=== PATIENT | male | born 1955 ===

== ENCOUNTER 2020-07-16 15:50 | Inpatient (IN) | payer OTHER ==
--- NOTE | 2020-07-16 16:17 | Event Note ---
ED Screening Note Date of service: 07/16/20 Time: 16:16 ED Screening Note: Six 4-year-old male presents emerged department chief complaint of gout to his left foot. Patient has a large ulcer versus gouty tophi to the medial portion of the MTP joint. Erythema with discoloration of the great toe noted. Decreased DP and PT pulses. This initial assessment/diagnostic orders/clinical plan/treatment(s) is/are subject to change based on patients health status, clinical progression and re-assessment by fellow clinical providers in the ED. Further treatment and workup at subsequent clinical providers discretion. Patient/guardian urged not to elope from the ED as their condition may be serious if not clinically assessed and managed. Initial orders include: CBC, CMP, PT, PTT, x-ray
--- NOTE | 2020-07-16 17:04 | XRay Report ---
LEFT FOOT 3 VIEWS INDICATION / CLINICAL INFORMATION: Left foot pain, swelling and erythema. Left foot ulcer/necrosis. COMPARISON: None available. FINDINGS: BONES and JOINT(S): No acute fracture or subluxation. No significant arthritis. No suspicious cortica l destruction. SOFT TISSUES: A wound is seen medially along the foot at the level of the head/neck of the first meta tarsal measuring 2.8 cm with adjacent edema. There is severe generalized atherosclerosis. No other si gnificant abnormality. ADDITIONAL FINDINGS: None. IMPRESSION: Left foot wound as above without radiographic evidence of osteomyelitis. Signer Name: Paxton Morton MD Signed: 07/16/2020 4:59 PM Workstation Name: [id number]
[2020-07-16 17:30] LABS: Basophils # (Auto) 0.1 K/mm3 (0.0-0.1); Basophils % (Auto) 0.4 % (0.0-1.8); Eosinophils % (Auto) 0.3 % (0.0-4.3); Hematocrit 41.4 % (35.5-45.6); Hemoglobin 13.6 gm/dl (11.8-15.2); Lymphocytes # (Auto) 1.2 K/mm3 (1.2-5.4); Lymphocytes % (Auto) 8.1 % (13.4-35.0); Mean Corpuscular HGB Conc 33 % (32-34); Mean Corpuscular Volume 96 fl (84-94); Monocytes # (Auto) 0.7 K/mm3 (0.0-0.8); Monocytes % (Auto) 5.1 % (0.0-7.3); Platelet Count 469 K/mm3 (140-440); Red Blood Count 4.32 M/mm3 (3.65-5.03); Red Cell Distribution Width 13.6 % (13.2-15.2)
[2020-07-16 18:04] LABS: Alanine Aminotransferase 25 units/L (7-56); Albumin 4.1 g/dL (3.9-5); Blood Urea Nitrogen 11 mg/dL (9-20); Calcium 9.7 mg/dL (8.4-10.2); Hemolysis Index 9
[2020-07-16 18:05] LABS: INR 0.98 (0.87-1.13)
[2020-07-16 18:06] LABS: Partial Thromboplastin Time 36.7 Sec. (24.2-36.6)
[2020-07-16 18:07] LABS: BUN/Creatinine Ratio 16
--- NOTE | 2020-07-16 18:24 | Vascular Lab Report ---
DUPLEX DOPPLER LOWER EXTREMITY ARTERIAL, LEFT INDICATION / CLINICAL INFORMATION: pain ulcer and discoloration to toes. TECHNIQUE: Arterial duplex examination of the left lower extremity performed using B-mode, color flow and spectr al Doppler assessment. FINDINGS: LEFT: Common Femoral Artery: PSV 165 cm/sec. Triphasic waveform. Proximal SFA: PSV 104 cm/sec. Biphasic waveform. Mid SFA: PSV 154 cm/sec. Biphasic waveform. Distal SFA: PSV 71 cm/sec. Monophasic waveform. Popliteal artery: PSV 106 cm/sec. Monophasic waveform. Posterior tibial artery: PSV 38 cm/sec. Monophasic waveform. Dorsalis Pedis Artery: PSV 13 cm/sec. Monophasic waveform. Anterior tibial artery 19 cm/s, monophasic waveform. IMPRESSION: 1. Moderate scattered peripheral artery disease with diffusely dampened waveforms. There is suspected high-grade stenosis at the mid to distal SFA. 2. Minimal monophasic flow in the dorsalis pedis and anterior tibial artery, both of which are patent . The posterior tibial artery is also patent. Signer Name: Ghanshyam Jeronimo MD Signed: 07/16/2020 6:20 PM Workstation Name: [id number]
[2020-07-16] MEDS ORDERED: ONDANSETRON 4 MG/2 ML INJ IV ONE (22:56)
[2020-07-16] MEDS ORDERED: MORPHINE 2 MG/1 ML INJ IV ONE (22:56)
--- NOTE | 2020-07-16 23:07 | Emergency Department Report ---
ED Extremity Problem HPI - General Chief complaint: Extremity Problem,Nontraumatic Stated complaint: LT FOOT GOUT Time Seen by Provider: 07/16/20 22:49 Source: patient Mode of arrival: Wheelchair Limitations: No Limitations - History of Present Illness Initial comments: 64-year-old male with history of hypertension, CAD, presents to ED with pain to the left foot. Patient has a black necrotic area overlying left first MTP joint with purple discoloration of the left great toe. Patient states these findings have been present for the last 4 months. Patient states pain has been getting worse so he went to an urgent care 3 days ago. Patient was given prescription for Tylenol 3 and azithromycin for cellulitis. Patient states the medication is not helping, so he decided to come to the emergency room. I spoke with patient's daughter, Shannon Glasgow, who confirms patient's story. She [facility] MD Complaint: extremity pain -: month(s) (4) Location: left, other (Foot) History of Same: Yes Severity scale (0 -10): 10 Quality: aching Consistency: constant Improves with: nothing Worsens with: weight bearing, walking, palpation Associated Symptoms: denies: fever - Related Data Home Medications Medication Instructions Recorded Confirmed Last Taken Acetaminophen [Tylenol] 325 mg PO 07/17/20 Unknown Acetaminophen/Codeine [Tylenol 1 tab PO Q4HR PRN 07/17/20 07/17/20 Unknown /Codeine # 3 tab] AtorvaSTATin [Lipitor] 40 mg PO QHS 07/17/20 07/17/20 Unknown Azithromycin [Zithromax Z-JENNA] 0 mg PO DAILY 07/17/20 07/17/20 Unknown Clopidogrel [Plavix] 75 mg PO QDAY 07/17/20 07/17/20 Unknown Folic Acid [Folvite] 1 mg PO QDAY 07/17/20 07/17/20 Unknown Furosemide [Lasix TAB] 80 mg PO 07/17/20 Unknown Metoprolol [Lopressor TAB] 50 mg PO BID 07/17/20 07/17/20 Unknown Spironolactone [Aldactone] 25 mg PO QDAY 07/17/20 07/17/20 Unknown Thiamine [Vitamin B-1] 100 mg PO QDAY 07/17/20 07/17/20 Unknown guaiFENesin [Guaifenesin] 400 mg PO 07/17/20 Unknown lisinopriL [Zestril] 20 mg PO QDAY 07/17/20 07/17/20 Unknown Allergies Allergy/AdvReac Type Severity Reaction Status Date / Time Penicillins Allergy Hives Verified 07/16/20 22:49 ED Review of Systems ROS: Stated complaint: LT FOOT GOUT Other details as noted in HPI Comment: All other systems reviewed and negative Constitutional: denies: fever Musculoskeletal: as per HPI ED Past Medical Hx - Past Medical History Hx Hypertension: Yes Additional medical history: High Cholesterol - Surgical History Additional Surgical History: Tonsilectomy, cyst removed from right chest; Open heart - Social History Smoking Status: Never Smoker Substance Use Type: Alcohol, Marijuana - Medications Home Medications: Home Medications Medication Instructions Recorded Confirmed Last Taken Type Acetaminophen [Tylenol] 325 mg PO 07/17/20 Unknown History Acetaminophen/Codeine [Tylenol 1 tab PO Q4HR PRN 07/17/20 07/17/20 Unknown History /Codeine # 3 tab] AtorvaSTATin [Lipitor] 40 mg PO QHS 07/17/20 07/17/20 Unknown History Azithromycin [Zithromax Z-JENNA] 0 mg PO DAILY 07/17/20 07/17/20 Unknown History Clopidogrel [Plavix] 75 mg PO QDAY 07/17/20 07/17/20 Unknown History Folic Acid [Folvite] 1 mg PO QDAY 07/17/20 07/17/20 Unknown History Furosemide [Lasix TAB] 80 mg PO 07/17/20 Unknown History Metoprolol [Lopressor TAB] 50 mg PO BID 07/17/20 07/17/20 Unknown History Spironolactone [Aldactone] 25 mg PO QDAY 07/17/20 07/17/20 Unknown History Thiamine [Vitamin B-1] 100 mg PO QDAY 07/17/20 07/17/20 Unknown History guaiFENesin [Guaifenesin] 400 mg PO 07/17/20 Unknown History lisinopriL [Zestril] 20 mg PO QDAY 07/17/20 07/17/20 Unknown History ED Physical Exam - General Limitations: No Limitations General appearance: alert, in no apparent distress - Head Head exam: Present: atraumatic, normocephalic - Eye Eye exam: Present: normal appearance, EOMI - ENT ENT exam: Present: mucous membranes moist - Neck Neck exam: Present: normal inspection - Respiratory Respiratory exam: Present: normal lung sounds bilaterally. Absent: respiratory distress - Cardiovascular Cardiovascular Exam: Present: regular rate, normal rhythm - Extremities Exam Extremities exam: Present: other (dry gangrene of area located over medial left 1st MTP joint; purple discoloration of the left great toe, w/ slow cap refill; erythema over dorsum of left foot; tenderness present; no palpable left dorsalis pedis pulse) ED Course Vital Signs 07/16/20 07/16/20 07/16/20 16:18 22:44 22:49 Temperature 97.4 F L Pulse Rate 82 87 Respiratory 18 16 16 Rate Blood Pressure Blood Pressure 232/102 233/105 [Right] O2 Sat by Pulse 98 99 Oximetry 07/16/20 07/17/20 07/17/20 23:30 00:00 00:24 Temperature Pulse Rate 84 88 88 Respiratory 16 16 Rate Blood Pressure 213/92 Blood Pressure 222/109 207/102 [Right] O2 Sat by Pulse 97 97 Oximetry - Consultations Consultation #1: 07/16/20 23:[address] Olsen, vascular surgeon on-call. States will consult on patient. ED Medical Decision Making - Lab Data Result diagrams: 07/16/20 17:06 07/16/20 17:06 - Radiology Data Radiology results: report reviewed, image reviewed - Medical Decision Making 64-year-old male presents to ED with dry gangrene of the left foot and apparent overlying cellulitis. Patient has WBCs of 14. He is afebrile. Patient reports dry gangrene and purple discoloration of the left great toe about ongoing x4 months. Reports he recently moved to [place] from [place] and [facility], however [facility] is not until the end of July. Unable to palpate a DP pulse on the left foot, however vascular ultrasound shows peripheral arterial disease with patent DP and posterior and anterior tibial arteries. I spoke with Dr. Olsen, vascular surgeon, who feels patient should be admitted for further evaluation. Clindamycin has been given for cellulitis. Patient will be admitted to hospitalist for further management. - Differential Diagnosis Dry gangrene, cellulitis, osteomyelitis, PAD Critical care attestation.: If time is entered above; I have spent that time in minutes in the direct care of this critically ill patient, excluding procedure time. ED Disposition Clinical Impression: Peripheral vascular disease of lower extremity, Cellulitis of foot, left, Dry gangrene, Hypokalemia, Uncontrolled hypertension Disposition: DC-[id number] OP ADMIT IP TO THIS HOSP Is pt being admited?: Yes Condition: Stable Time of Disposition: 23:46
[2020-07-16] MEDS ORDERED: POTASSIUM CHLORIDE ER 20 MEQ TAB PO ONE (23:27)
[2020-07-17] MEDS ORDERED: ONDANSETRON 4 MG/2 ML INJ IV PRN (00:20)
[2020-07-17] MEDS ORDERED: MAGNESIUM HYDROXIDE (MOM) ORAL LIQD UDC PO PRN (00:20)
--- NOTE | 2020-07-17 00:38 | History and Physical Report ---
History of Present Illness Date of examination: 07/17/20 Date of admission: 07/17/2020 Chief complaint: Pain in left foot History of present illness: 64-year-old white male with known history of hypertension, coronary artery disease with CABG in the past presenting to the emergency room with discoloration and pain in the left great toe. Patient states this has been ongoing for the past 4 months however pain has been getting worse over the past few days. She had gone to an urgent care facility where he was prescribed Tylenol 3 and azithromycin for possible cellulitis of the left foot. Indicates his condition has not improved and therefore decided to report to the emergency room. Patient has an upcoming appointment with the [facility] sometime next month. He denies any fever or chills, no chest pain or shortness of breath, no nausea vomiting and no diarrhea. Work-up in the emergency room today reveals leukocytosis of 14 Foot x-ray reveals:Left foot wound without radiographic evidence of osteomyelitis. Ultrasound of the left lower extremity reveals: Moderate scattered peripheral artery disease with diffusely dampened waveforms. There is suspected high-grade stenosis at the mid to distal SFA. 2. Minimal monophasic flow in the dorsalis pedis and anterior tibial artery, both of which are patent. The posterior tibial artery is also patent Vascular surgeon Dr. Olsen was consulted and notified of the above findings by the ER physician. Recommendation is to commence patient on empiric IV antibiotics and patient be promptly evaluated and followed up. Past History Past Medical History: hypertension, hyperlipidemia, other (Left foot Gout) Past Surgical History: Other (open heartr surgery,Cyst removal on right side of chest,) Social history: alcohol abuse, other (Uses marijuana) Medications and Allergies Allergies Allergy/AdvReac Type Severity Reaction Status Date / Time Penicillins Allergy Hives Verified 07/16/20 22:49 Home Medications Medication Instructions Recorded Confirmed Last Taken Type Acetaminophen [Tylenol] 325 mg PO Q6HR 07/17/20 07/17/20 Unknown History Acetaminophen/Codeine [Tylenol 1 tab PO Q4HR PRN 07/17/20 07/17/20 Unknown History /Codeine # 3 tab] AtorvaSTATin [Lipitor] 40 mg PO QHS 07/17/20 07/17/20 Unknown History Azithromycin [Zithromax Z-JENNA] 0 mg PO DAILY 07/17/20 07/17/20 Unknown History Clopidogrel [Plavix] 75 mg PO QDAY 07/17/20 07/17/20 Unknown History Folic Acid [Folvite] 1 mg PO QDAY 07/17/20 07/17/20 Unknown History Furosemide [Lasix TAB] 80 mg PO BID 07/17/20 07/17/20 Unknown History Metoprolol [Lopressor TAB] 50 mg PO BID 07/17/20 07/17/20 Unknown History Spironolactone [Aldactone] 25 mg PO QDAY 07/17/20 07/17/20 Unknown History Thiamine [Vitamin B-1] 100 mg PO QDAY 07/17/20 07/17/20 Unknown History guaiFENesin [Guaifenesin] 400 mg PO Q6HR 07/17/20 07/17/20 Unknown History lisinopriL [Zestril] 20 mg PO QDAY 07/17/20 07/17/20 Unknown History Active Meds: Active Medications Acetaminophen (Tylenol) 650 mg PO Q4H PRN PRN Reason: Pain MILD(1-3)/Fever >100.5/REYES Sodium Chloride (Nacl 0.9% 1000 Ml) 1,000 mls @ 75 mls/hr IV DIRECT DELFINO Magnesium Hydroxide (Milk Of Magnesia) 30 ml PO Q4H PRN PRN Reason: Constipation Morphine Sulfate (Morphine) 2 mg IV Q4H PRN PRN Reason: Pain, Moderate (4-6) Ondansetron HCl (Zofran) 4 mg IV Q8H PRN PRN Reason: Nausea And Vomiting Sodium Chloride (Sodium Chloride Flush Syringe 10 Ml) 10 ml IV BID DELFINO Sodium Chloride (Sodium Chloride Flush Syringe 10 Ml) 10 ml IV PRN PRN PRN Reason: LINE FLUSH Review of Systems Constitutional: no fever, no chills Ears, nose, mouth and throat: no nasal congestion, no sore throat Cardiovascular: no chest pain, no palpitations Respiratory: no cough, no shortness of breath Gastrointestinal: no abdominal pain, no nausea, no vomiting, no diarrhea Genitourinary Male: no dysuria, no hematuria, no flank pain Musculoskeletal: no neck pain, no low back pain Integumentary: darkening of skin (On left foot), color changes (Left foot), no rash, no pruritis Neurological: no headaches, no confusion Exam - Constitutional Vitals: Temp Pulse Resp BP Pulse Ox 97.4 F L 88 16 213/92 99 07/16/20 16:18 07/17/20 00:24 07/16/20 22:49 07/17/20 00:24 07/16/20 22:44 General appearance: Present: no acute distress, well-nourished - EENT Eyes: Present: PERRL, EOM intact. Absent: scleral icterus ENT: hearing intact, clear oral mucosa, dentition normal - Neck Neck: Present: supple, normal ROM - Respiratory Respiratory effort: normal Respiratory: bilateral: CTA - Cardiovascular Rhythm: regular Heart Sounds: Present: S1 & S2. Absent: gallop, systolic murmur, diastolic murmur, rub - Extremities Extremities: no ischemia, pulses intact, pulses symmetrical, Full ROM Extremity abnormal: edema (Trace edema on left foot), ulceration (Wound on the medial aspect of the left big toe, appears gangrenous.), pulses diminished (Left foot), tenderness (Redness surrounding ulcer medial aspect of left big toe, redness and tenderness on the dorsum of the left foot) Peripheral Pulses: abnormal (Diminished on left foot) - Abdominal General gastrointestinal: Present: soft, non-tender, non-distended, normal bowel sounds. Absent: mass - Integumentary Integumentary: Present: clear, warm, dry - Musculoskeletal Musculoskeletal: strength equal bilaterally - Psychiatric Psychiatric: appropriate mood/affect, intact judgment & insight, memory intact, cooperative - Neurologic Neurologic: CNII-XII intact, no focal deficits, moves all extremities Results - Labs CBC & Chem 7: 07/16/20 17:06 07/16/20 17:06 Labs: Abnormal lab results 07/16/20 07/16/20 07/16/20 Range/Units 17:06 17:06 17:06 WBC 14.7 H (4.5-11.0) K/mm3 MCV 96 H (84-94) fl Plt Count 469 H (140-440) K/mm3 Lymph % (Auto) 8.1 L (13.4-35.0) % Seg Neutrophils % 86.1 H (40.0-70.0) % Seg Neutrophils # 12.7 H (1.8-7.7) K/mm3 APTT 36.7 H (24.2-36.6) Sec. Potassium 3.4 L (3.6-5.0) mmol/L Creatinine 0.7 L (0.8-1.3) mg/dL Glucose 106 H (75-100) mg/dL Assessment and Plan - Patient Problems (1) Cellulitis of foot, left Current Visit: Yes Status: Acute Plan to address problem: Patient placed on empiric IV antibiotics. (2) Dry gangrene Current Visit: Yes Status: Acute Plan to address problem: We await further evaluation and recommendation by vascular surgery. (3) Hypokalemia Current Visit: Yes Status: Acute Plan to address problem: We will replete potassium and will monitor chemistry. (4) Peripheral vascular disease of lower extremity Current Visit: Yes Status: Acute Plan to address problem: We await further evaluation and recommendation by vascular surgery. (5) DVT prophylaxis Current Visit: Yes Status: Acute (6) Full code status Current Visit: Yes Status: Acute
[2020-07-17] MEDS ORDERED: hydrALAZINE 20 MG/1 ML INJ IV PRN (02:24)
[2020-07-17] MEDS: SODIUM CHLORIDE 0.9% 1000 ML 1,000 ML IV SCH (02:31)
[2020-07-17] MEDS: MORPHINE 2 MG/1 ML INJ IV PRN ×6 (02:31→21:15)
[2020-07-17] MEDS: ACETAMINOPHEN 325 MG TAB PO PRN (08:21)
--- NOTE | 2020-07-17 14:26 | Consultation ---
History of Present Illness - Reason for Consult Consult date: 07/17/20 PVD with Left Lower Extremity Gangrene Requesting physician: JOEY LO - History of Present Illness The patient is a 64-year-old male with a history of coronary artery disease and peripheral vascular disease who states the had an ulcer on his left first toe that developed approximately 4 months ago. He states that he was doing local wound care at home however the wound progressively worsened over the past 4 months. He typically has his medical care handled at the [facility] and was planning to have follow-up for evaluation of his left leg peripheral vascular disease in 1 month however he developed rest pain in the left lower extremity that prevented him from sleeping the past 3 night so he presented to the emergency department. He denies any previous history of endovascular intervention on his lower extremity and denies any history of tobacco abuse. He states that when he walks his hips begin to ache after approximately 1 block however he believes this is due to arthritis. He denies having any calf pain with walking. He has no additional complaints at this time. Past History Past Medical History: CAD, hypertension, hyperlipidemia, PVD, other (Left foot Gout) Past Surgical History: CABG, tonsillectomy, Other (Cyst removal on right side of chest) Social history: alcohol abuse, other (Uses marijuana) Medications and Allergies Allergies Allergy/AdvReac Type Severity Reaction Status Date / Time Penicillins Allergy Hives Verified 07/16/20 22:49 Home Medications Medication Instructions Recorded Confirmed Last Taken Type Acetaminophen [Tylenol] 325 mg PO Q6HR 07/17/20 07/17/20 Unknown History Acetaminophen/Codeine [Tylenol 1 tab PO Q4HR PRN 07/17/20 07/17/20 Unknown History /Codeine # 3 tab] AtorvaSTATin [Lipitor] 40 mg PO QHS 07/17/20 07/17/20 Unknown History Azithromycin [Zithromax Z-JENNA] 0 mg PO DAILY 07/17/20 07/17/20 Unknown History Clopidogrel [Plavix] 75 mg PO QDAY 07/17/20 07/17/20 Unknown History Folic Acid [Folvite] 1 mg PO QDAY 07/17/20 07/17/20 Unknown History Furosemide [Lasix TAB] 80 mg PO BID 07/17/20 07/17/20 Unknown History Metoprolol [Lopressor TAB] 50 mg PO BID 07/17/20 07/17/20 Unknown History Spironolactone [Aldactone] 25 mg PO QDAY 07/17/20 07/17/20 Unknown History Thiamine [Vitamin B-1] 100 mg PO QDAY 07/17/20 07/17/20 Unknown History guaiFENesin [Guaifenesin] 400 mg PO Q6HR 07/17/20 07/17/20 Unknown History lisinopriL [Zestril] 20 mg PO QDAY 07/17/20 07/17/20 Unknown History Active Meds: Active Medications Acetaminophen (Tylenol) 650 mg PO Q4H PRN PRN Reason: Pain MILD(1-3)/Fever >100.5/REYES Last Admin: 07/17/20 08:21 Dose: 650 mg Documented by: Hydralazine HCl (Apresoline) 10 mg IV Q6HR PRN PRN Reason: Blood Pressure Last Admin: 07/17/20 06:10 Dose: 10 mg Documented by: Sodium Chloride (Nacl 0.9% 1000 Ml) 1,000 mls @ 75 mls/hr IV DIRECT DELFINO Last Admin: 07/17/20 02:31 Dose: 75 mls/hr Documented by: Clindamycin HCl (Cleocin 900 Mg/50 Ml) 900 mg in 50 mls @ 100 mls/hr IV Q8HR [facility]; Protocol Last Admin: 07/17/20 14:08 Dose: 100 mls/hr Documented by: Magnesium Hydroxide (Milk Of Magnesia) 30 ml PO Q4H PRN PRN Reason: Constipation Morphine Sulfate (Morphine) 2 mg IV Q4H PRN PRN Reason: Pain, Moderate (4-6) Last Admin: 07/17/20 10:12 Dose: 2 mg Documented by: Ondansetron HCl (Zofran) 4 mg IV Q8H PRN PRN Reason: Nausea And Vomiting Sodium Chloride (Sodium Chloride Flush Syringe 10 Ml) 10 ml IV BID [facility] Last Admin: 07/17/20 10:24 Dose: 10 ml Documented by: Sodium Chloride (Sodium Chloride Flush Syringe 10 Ml) 10 ml IV PRN PRN PRN Reason: LINE FLUSH Review of Systems All systems: negative Exam - Constitutional Vitals: Temp Pulse Resp BP Pulse Ox 98.6 F 84 18 175/87 93 07/17/20 04:45 11/24/20 04:45 07/17/20 04:45 07/17/20 04:45 07/17/20 04:45 General appearance: Present: no acute distress - Cardiovascular Rhythm: regular - Extremities Extremities: pulses intact (2+ right femoral pulse and 2+ radial pulses bilaterally) Extremity abnormal: pulses diminished (Weakly palpable left femoral pulse, nonpalpable pedal pulses bilaterally), other (Eschar overlying left medial first metatarsal and extending onto the dorsum of the foot with surrounding erythema, no purulence identified) - Abdominal General gastrointestinal: Present: soft, non-tender, non-distended Male genitourinary: Present: normal - Rectal Rectal Exam: deferred Results - Labs CBC & Chem 7: 07/16/20 17:06 07/16/20 17:06 Labs: Abnormal lab results 07/16/20 07/16/20 07/16/20 Range/Units 17:06 17:06 17:06 WBC 14.7 H (4.5-11.0) K/mm3 MCV 96 H (84-94) fl Plt Count 469 H (140-440) K/mm3 Lymph % (Auto) 8.1 L (13.4-35.0) % Seg Neutrophils % 86.1 H (40.0-70.0) % Seg Neutrophils # 12.7 H (1.8-7.7) K/mm3 APTT 36.7 H (24.2-36.6) Sec. Potassium 3.4 L (3.6-5.0) mmol/L Creatinine 0.7 L (0.8-1.3) mg/dL Glucose 106 H (75-100) mg/dL - Imaging and Cardiology Venous US: other (Left lower extremity arterial duplex films were reviewed) Assessment and Plan The patient is a 64-year-old male with a history of peripheral vascular disease who presented with left lower extremity critical limb ischemia. He had a ultrasound that demonstrates SFA and popliteal disease and his physical exam would suggest possible iliac disease. He typically has his care performed at the [facility] however given the critical nature of his ischemia the patient cannot wait 1 month to have a diagnostic study with possible intervention. I have discussed his need for a diagnostic aortogram with left lower extremity angiogram and possible intervention. He has been given the risk, benefits, and alternative procedures and expressed understanding and would like to proceed. He will be made n.p.o. after midnight and placed on the schedule for an angiogram tomorrow.
--- NOTE | 2020-07-17 16:10 | Progress Note ---
Subjective Date of service: 07/17/20 Objective - Constitutional Vitals: Vital Signs - 12hr 07/17/20 04:45 Temperature 98.6 F Pulse Rate 84 Respiratory 18 Rate Blood Pressure 175/87 O2 Sat by Pulse 93 Oximetry General appearance: Present: no acute distress, well-nourished - EENT Eyes: PERRL, EOM intact ENT: hearing intact, clear oral mucosa Ears: bilateral: normal - Neck Neck: supple, normal ROM - Respiratory Respiratory effort: normal Respiratory: bilateral: CTA - Breasts Breasts: normal - Cardiovascular Rhythm: regular Heart Sounds: Present: S1 & S2. Absent: gallop, rub Extremities: pulses intact, No edema, normal color, Full ROM - Gastrointestinal General gastrointestinal: Present: soft, non-tender, non-distended, normal bowel sounds - Genitourinary Male genitourinary: normal - Integumentary Integumentary: clear, warm, dry - Musculoskeletal Musculoskeletal: 1, strength equal bilaterally - Neurologic Neurologic: moves all extremities - Psychiatric Psychiatric: memory intact, appropriate mood/affect, intact judgment & insight - Labs CBC & Chem 7: 07/16/20 17:06 07/16/20 17:06 Labs: Abnormal lab results 07/16/20 07/16/20 07/16/20 Range/Units 17:06 17:06 17:06 WBC 14.7 H (4.5-11.0) K/mm3 MCV 96 H (84-94) fl Plt Count 469 H (140-440) K/mm3 Lymph % (Auto) 8.1 L (13.4-35.0) % Seg Neutrophils % 86.1 H (40.0-70.0) % Seg Neutrophils # 12.7 H (1.8-7.7) K/mm3 APTT 36.7 H (24.2-36.6) Sec. Potassium 3.4 L (3.6-5.0) mmol/L Creatinine 0.7 L (0.8-1.3) mg/dL Glucose 106 H (75-100) mg/dL
[2020-07-17] MEDS: carvediloL 12.5 MG TAB PO SCH (21:13)
[2020-07-17] MEDS: VALSARTAN 160MG TAB PO SCH (21:14)
[2020-07-18] MEDS: MORPHINE 2 MG/1 ML INJ IV PRN (01:11)
[2020-07-18 04:59] LABS: Basophils % (Auto) 0.3 % (0.0-1.8); Eosinophils # (Auto) 0.1 K/mm3 (0.0-0.4); Eosinophils % (Auto) 0.5 % (0.0-4.3); Hematocrit 35.8 % (35.5-45.6); Hemoglobin 12.1 gm/dl (11.8-15.2); Lymphocytes # (Auto) 1.5 K/mm3 (1.2-5.4); Lymphocytes % (Auto) 11.8 % (13.4-35.0); Mean Corpuscular HGB Conc 34 % (32-34); Mean Corpuscular Volume 96 fl (84-94); Monocytes % (Auto) 8.1 % (0.0-7.3); Platelet Count 398 K/mm3 (140-440); Red Blood Count 3.73 M/mm3 (3.65-5.03); Red Cell Distribution Width 13.6 % (13.2-15.2)
[2020-07-18 05:14] LABS: Blood Urea Nitrogen 5 mg/dL (9-20); Calcium 8.9 mg/dL (8.4-10.2); Hemolysis Index 9
[2020-07-18 05:15] LABS: BUN/Creatinine Ratio 7
[2020-07-18] MEDS ORDERED: POTASSIUM CHLORIDE ER 20 MEQ TAB PO NR (07:00)
[2020-07-18] MEDS ORDERED: HEPARIN/NS 5000 UNIT/500ML 1,000 ML IR ONE (09:53)
[2020-07-18] MEDS ORDERED: fentaNYL 100 MCG/2 ML INJ ONE ×2 (09:54→11:33)
[2020-07-18] MEDS ORDERED: LIDOCAINE 1%/EPINEPHRINE 1:100,000 VIAL (20 ML) INFILTRATI ONE ×2 (09:54→11:24)
[2020-07-18] MEDS ORDERED: ceFAZolin/Water 2 GM/20 ML 0 GM/0 ML SYRINGE IV ONE (09:54)
[2020-07-18] MEDS ORDERED: SODIUM CHLORIDE 0.9% 500 ML 500 ML IV SCH (10:00)
[2020-07-18] MEDS: MIDAZOLAM 2 MG/2 ML INJ ONE ×4 (10:26→11:36)
[2020-07-18] MEDS: HEPARIN 10,000 UNITS/10 ML VIAL ONE ×4 (10:40→12:29)
[2020-07-18] MEDS: fentaNYL 100 MCG/2 ML INJ ONE ×3 (10:51→11:36)
[2020-07-18] MEDS ORDERED: SODIUM CHLORIDE 0.9% 500 ML 500 ML ONE (11:15)
[2020-07-18] MEDS ORDERED: MIDAZOLAM 2 MG/2 ML INJ ONE (11:32)
[2020-07-18] MEDS ORDERED: HEPARIN/NS 5000 UNIT/500ML 500 ML IR ONE ×2 (11:40→13:37)
[2020-07-18] MEDS ORDERED: NITROGLYCERIN SYRINGE 3 ML ONE (11:46)
[2020-07-18] MEDS ORDERED: VERAPAMIL 5 MG/2 ML INJ ONE ×2 (11:46→12:01)
[2020-07-18] MEDS ORDERED: SODIUM CHLORIDE 0.9% 1000 ML 1,000 ML ONE (12:01)
[2020-07-18] MEDS ORDERED: NITROGLYCERIN DRIP 50 MG/250 ML BOTTLE ONE (12:01)
[2020-07-18] MEDS: carvediloL 12.5 MG TAB PO SCH ×2 (12:09→23:39)
[2020-07-18] MEDS: VALSARTAN 160MG TAB PO SCH ×2 (12:09→23:39)
[2020-07-18] MEDS ORDERED: hydrALAZINE 20 MG/1 ML INJ ONE ×2 (12:11→13:48)
[2020-07-18] MEDS ORDERED: HYDROmorphone 1 MG/1 ML INJ ONE (12:19)
[2020-07-18] MEDS ORDERED: HEPARIN 10,000 UNITS/10 ML VIAL ONE ×2 (13:22→14:39)
[2020-07-18] MEDS ORDERED: WATER FOR INJ Sterile (PF) 10 ML ONE (13:55)
[2020-07-18] MEDS ORDERED: ALTEPLASE 2 MG INJ ONE (13:55)
[2020-07-18] MEDS ORDERED: HEPARIN/ 0.45% NACL DRIP 25,000 UNIT/500 ML BAG ONE (14:01)
[2020-07-18] MEDS ORDERED: CLOPIDOGREL 300 MG TAB ONE (14:06)
[2020-07-18] MEDS ORDERED: ALUM-MAG HYDROXIDE-SIMETHICONE 200-200-20MG/5ML ORAL LIQD 30 ML ONE (14:06)
[2020-07-18] MEDS ORDERED: CLOPIDOGREL 300 MG TAB PO ONE (14:17)
--- NOTE | 2020-07-18 14:23 | Operative Report ---
Operative Report Operative Report: Date of Procedure: 07/18/2020 Pre-operative Diagnosis: Peripheral Vascular Disease with Left Lower Extremity Gangrene Post-operative Diagnosis: Same Procedure(s): 1. Ultrasound-Guided Access Right Common Femoral Artery 2. Diagnostic Aortogram (No Previous Films for Comparison) 3. Diagnostic Left Lower Extremity Arteriogram (No Previous Films for Comparison) 4. Ultrasound-Guided Access Left Posterior Tibial Artery In Retrograde Fashion 5. Atherectomy with Angioplasty And Stent of The Left Posterior Tibial Artery with 1.25 Solid CSI Diamondback Orbital Atherectomy Catheter, 3.0-3.5 x 220 Nanocross Balloon, 3.5 x 30 mm and 3.5 x 30 mm Medtronic Resolute [place] Drug- Eluting Stents 6. Atherectomy with Angioplasty of Left Below-knee Popliteal Artery With 1.25 Solid CSI Diamondback Orbital Atherectomy Catheter, 5.0 x 200 Angiosculpt Balloon, and 5.0 x 150 IN.PACT Drug-Coated Balloon 7. Angioplasty of Left Above Knee Popliteal Artery and SFA 6.0 x 200 Angiosculpt Balloon, 6.0 x 250 IN.PACT Drug-Coated Balloon, and 6.0 x 150 IN.PACT Drug-Coated Balloon 8. Closure of Right Femoral Arteriotomy with Pro-Delta Closure Device 9. Radiologic Supervision with Interpretation 10. Monitored Moderate Sedation (Total Anesthesia Time: 230 Minutes) Surgeon: Moe Holland M.D. Canine Service Instructor Trainer: None Anesthesia: Local/Monitored Moderate Sedation Total Anesthesia Time: 230 Minutes EBL: Minimal Counts: Correct Complications: None Condition: Stable Specimen: None Indication: The patient is a 64-year-old male with a history of peripheral vascular disease who developed a left foot ulcer approximate 4 months ago. Over the past 4 months that ulcer has progressively worsened and the patient eventually presented to the emergency department with complaints of rest pain. His arterial duplex demonstrated SFA and popliteal artery disease and his vascular exam demonstrated no pedal pulses. He is in need of a diagnostic angiogram. He was given the risk, benefits, and alternative procedures and consented to the procedure. Angiographic Findings: The diagnostic aortogram revealed that the aorta was ectatic without aneurysmal dilatation or flow-limiting stenosis. The left lower extremity angiogram revealed that the left common iliac artery was patent without evidence of flow- limiting stenosis. The left hypogastric artery and external iliac artery were both patent without evidence of flow-limiting stenosis. The common femoral artery was patent without evidence of flow-limiting stenosis. The proximal profunda was patent without evidence of flow-limiting stenosis however there was distal disease with diffuse stenosis however this did not appear to be flow- limiting. The SFA was diffusely diseased with 30 to 40% stenosis however this was not significantly flow-limiting. The above-knee popliteal artery was diffusely diseased with 30 to 50% stenosis. There was a short segment stenosis in the below-knee popliteal artery of approximately 85%. The remainder of the below-knee popliteal artery was diffusely diseased with 30 to 50% stenosis. All tibial vessels were occluded at their origin with only collateral vessels noted in the calf and providing flow into the foot. After intervention the SFA and popliteal artery were patent with less than 15% residual stenosis. 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 The posterior tibial artery was patent to the ankle with approximately 40% stenosis in various areas. There were 2 areas that were treated with drug-eluting stents that demonstrated extravasation of contrast however this was significantly decreased after placing the stents. There were collateral vessels were riding outflow from the posterior tibial artery at the level of the medial malleolus and then flowing into the foot without true inline flow to the posterior tibial artery. Description of Procedure: The patient was brought to the Induction Heat Treater and laid in supine position. After a timeout was performed the patient's right groin was prepped and draped in normal sterile fashion. Ultrasound was used to identify the right common femoral artery and confirm patency. Once patency was confirmed the overlying skin and soft tissue was anesthetized with lidocaine. An 11 blade was used to make a small stab incision and a curved hemostat was used to bluntly dissect down to the anterior surface of the right common femoral artery. A 21-gauge micropuncture needle was used with ultrasound guidance to enter the right common femoral artery and after removing the needle a 0.018 micropuncture wire was advanced to the artery. The needle was removed and a micropuncture sheath was advanced into the artery by Seldinger technique. The inner cannula and wire were removed and a 0.035 Bentson wire was advanced to the aorta under fluoroscopy. The micropuncture sheath was exchanged for a 5 Gabonese sheath by Seldinger technique and an Omni Flush catheter was advanced into the aorta. The Bentson wire was removed and a diagnostic aortogram was performed with the previously described findings. The Bentson wire and Omni Flush catheter were advanced up and over the bifurcation and a diagnostic left lower extremity angiogram was performed with the previously described findings. Given the findings and the patient's clinical exam the decision was made to treat. I advanced the Bentson wire into the distal popliteal artery and exchanged the 5 Gabonese sheath for a 7 Gabonese 45 cm destination sheath. At this point the patient was systemically heparinized with 5000 units of heparin IV and this was redosed with 1000 units of heparin every 45 minutes into the completion of the case. I advanced a Navicross catheter and 0.018 V18 wire into the anterior tibial artery which was confirmed by angiogram. I was able to advance the catheter and wire into the mid anterior tibial artery and the true lumen. I attempted to advance the catheter wire into the distal anterior tibial artery however the wire initially entered a collateral branch and then eventually perforated in the distal artery which was confirmed by angiogram. I then attempted to treat the posterior tibial artery in antegrade fashion which I was unable to do so I decided to attempt a pedal approach. The patient's left foot was then prepped and draped in normal sterile fashion. I used the ultrasound to identify the posterior tibial artery just above the medial malleolus. Lidocaine was used to anesthetize the skin and overlying soft tissue. A 21-gauge micropuncture needle was then used to access the artery and retrograde fashion and the V 18 wire was advanced into the artery. A 4/5 glide slender sheath was advanced into the artery by Seldinger technique and a radial cocktail was injected into the artery. I then used the Navicross catheter with the V 18 to cross the occluded posterior tibial artery and reenter into the popliteal artery which was confirmed by angiogram. I then manipulated the wire into the Navicross catheter that was in the popliteal artery in antegrade fashion and advanced the wire out of the right common femoral artery. At this point the patient was "body flossed". I advanced the antegrade catheter over the V 18 and into the distal posterior tibial artery. I then advanced a 0.014 Viper Wire through the Navicross catheter and into the distal posterior tibial artery. I attempted to advance the catheter wire into the lateral plantar artery without success. I used the CSPeeridea Diamondback 1.25 Orbital Atherectomy Catheter to perform atherectomy of the posterior tibial artery and below-knee popliteal artery. I followed that with angioplasty with a 3.0-3.5 x 220 Nanocross Balloon there resulted in less than 10% residual stenosis within the posterior tibial artery. I performed angioplasty of the below-knee popliteal artery using a 5.0 x 200 Angiosculpt Balloon followed by 5.0 x 150 IN.PACT Drug-Coated Balloon resulting in less than 15% residual stenosis. I performed angioplasty of the above-knee popliteal artery and SFA with a 6.0 x 200 Angiosculpt Balloon followed by angioplasty of the above-knee popliteal artery and SFA with a 6.0 x 250 IN.PACT Drug-Coated Balloon and a 6.0 x 150 IN.PACT Drug-Coated Balloon. This resulted in less than 15% residual stenosis however the flow through all t he arteries was significantly sluggish. 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 This appeared to be off of the proximal artery. This was not apparent during my initial time working on the tibial vessels. I was unable to visualize the exact origin of the fistula so I decided not to attempt treatment in hopes that the fistula would eventually thrombosed. Additionally there were 2 areas of extravasation of contrast from the posterior tibial artery as well as recoil of the lesions with 40% stenosis in the mid artery. I advanced a 0.014 Choice PT wire into the posterior tibial artery and then advanced a 6 Gabonese multipurpose catheter into the tibioperoneal trunk. I then treated the distal area of extravasation which also included an area of stenosis of approximately 60% with a 3.5 x 30 mm Medtronic Resolute [place] Drug-Eluting Stent and then treated the more proximal area with a 3.5 x 30 mm Medtronic Resolute [place] drug-eluting stent. After treating the areas there was still extravasation of contrast however this was much more sluggish than initial. The posterior tibial artery was still patent with flow down to the medial malleolus and collateral branches into the calf that appeared to fill the foot. At this point I decided to complete the case and start the patient on a heparin drip in hopes that this may keep the vessels patent with the plan for more intervention later if needed. I removed the Choice PT wire and advanced a milliPay Systemsson wire into the artery. I pulled the sheath back into the right external iliac artery and then advanced the wire into the aorta. I then removed the sheath and used a Pro-glide closure device to close the right femoral arteriotomy. A sterile dressing was then applied to the entry site and the patient was transported to recovery in stable condition.
--- NOTE | 2020-07-18 14:42 | Progress Note ---
Subjective Date of service: 07/18/20 Objective - Constitutional Vitals: Vital Signs - 12hr 07/18/20 09:11 Temperature 98.6 F Pulse Rate 70 Respiratory 18 Rate Blood Pressure 180/136 [Right] O2 Sat by Pulse 97 Oximetry General appearance: Present: no acute distress, well-nourished - EENT Eyes: PERRL, EOM intact ENT: hearing intact, clear oral mucosa Ears: bilateral: normal - Neck Neck: supple, normal ROM - Respiratory Respiratory effort: normal Respiratory: bilateral: CTA - Breasts Breasts: normal - Cardiovascular Rhythm: regular Heart Sounds: Present: S1 & S2. Absent: gallop, rub Extremities: pulses intact, No edema, normal color, Full ROM - Gastrointestinal General gastrointestinal: Present: soft, non-tender, non-distended, normal bowel sounds - Genitourinary Male genitourinary: normal - Integumentary Integumentary: clear, warm, dry - Musculoskeletal Musculoskeletal: 1, strength equal bilaterally - Neurologic Neurologic: moves all extremities - Psychiatric Psychiatric: memory intact, appropriate mood/affect, intact judgment & insight - Labs CBC & Chem 7: 07/18/20 04:14 07/18/20 04:14 Labs: Abnormal lab results 07/18/20 07/18/20 Range/Units 04:14 04:14 WBC 12.8 H (4.5-11.0) K/mm3 MCV 96 H (84-94) fl MCH 33 H (28-32) pg Lymph % (Auto) 11.8 L (13.4-35.0) % [place] % (Auto) 8.1 H (0.0-7.3) % [place] # (Auto) 1.0 H (0.0-0.8) K/mm3 Seg Neutrophils % 79.3 H (40.0-70.0) % Seg Neutrophils # 10.1 H (1.8-7.7) K/mm3 Potassium 3.3 L (3.6-5.0) mmol/L BUN 5 L (9-20) mg/dL Creatinine 0.7 L (0.8-1.3) mg/dL Glucose 122 H (75-100) mg/dL
[2020-07-18] MEDS: HEPARIN/ 0.45% NACL DRIP 25,000 UNIT/500 ML BAG IV SCH (14:44)
[2020-07-18] MEDS ORDERED: HEPARIN 10,000 UNITS/10 ML VIAL IV SCH (15:00)
[2020-07-18] MEDS ORDERED: HEPARIN 10,000 UNITS/10 ML VIAL IV ONE (15:00)
[2020-07-18 15:29] LABS: Hematocrit 36.4 % (35.5-45.6); Hemoglobin 12.1 gm/dl (11.8-15.2)
[2020-07-18 15:40] LABS: INR 1.23 (0.87-1.13)
[2020-07-18 16:38] LABS: Partial Thromboplastin Time TNR Sec. (24.2-36.6)
[2020-07-18] MEDS: HYDROcodone/ACETAMINOPHEN 5-325 MG TAB PO PRN (18:30)
[2020-07-19] MEDS: SODIUM CHLORIDE 0.9% 1000 ML 1,000 ML IV SCH (05:30)
[2020-07-19] MEDS: HEPARIN/ 0.45% NACL DRIP 25,000 UNIT/500 ML BAG IV SCH (05:31)
[2020-07-19] MEDS: ASPIRIN EC 81 MG TAB PO SCH (10:58)
[2020-07-19] MEDS: CLOPIDOGREL 75 MG TAB PO SCH (11:01)
[2020-07-19] MEDS: VALSARTAN 160MG TAB PO SCH ×2 (11:01→22:06)
[2020-07-19] MEDS: carvediloL 12.5 MG TAB PO SCH ×2 (11:01→22:06)
[2020-07-19] MEDS: HYDROcodone/ACETAMINOPHEN 5-325 MG TAB PO PRN ×2 (13:11→23:40)
--- NOTE | 2020-07-19 15:58 | Progress Note ---
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 On heparin drip, on aspirin, on Plavix, on Protonix. I am concerned that the left lower extremity may not be salvageable. Hopefully, patient may be able to only have a TMA, but may need BKA. I will obtain an arterial ultrasound of the lower extremities with YESSY for further evaluation. Patient understands and agrees with plan. Subjective Date of service: 07/19/20 Principal diagnosis: LE CLI Interval history: Patient reports symptomatic improvement of the left lower extremity and reports that he is out of rest pain. He has left-sided nonpalpable and nondopplerable PT and DP. He has nonpalpable right pedal pulses. His left first digit appears ischemic and is cool with eschar at the MTP joint. The second through fifth digits are cool with less ischemia. There is some evidence of deep tissue injury on the dorsum of the midfoot. Discussed with patient that I will obtain an arterial Doppler for further evaluation. Objective - Constitutional Vitals: Vital Signs - 12hr 07/19/20 07/19/20 07/19/20 05:01 07:25 11:01 Temperature 99.0 F Pulse Rate 74 78 Respiratory 18 Rate Blood Pressure 172/78 172/78 133/57 O2 Sat by Pulse 96 Oximetry 07/19/20 12:13 Temperature 99.3 F Pulse Rate 74 Respiratory 17 Rate Blood Pressure 101/62 O2 Sat by Pulse 93 Oximetry General appearance: Present: no acute distress - EENT Eyes: EOM intact ENT: hearing intact - Respiratory Respiratory effort: normal Extremities: abnormal (please see subjective) Extremity abnormal: other (Right groin has no hematoma or pseudoaneurysm or oozing.) - Gastrointestinal General gastrointestinal: Present: soft, non-tender - Psychiatric Psychiatric: appropriate mood/affect, cooperative - Labs CBC & Chem 7: 07/18/20 15:01 07/18/20 04:14 Labs: Abnormal lab results 07/18/20 Range/Units 18:37 Heparin Anti-Xa Level 0.11 L (0.3-0.7) U.I./ml Medications & Allergies - Medications Allergies/Adverse Reactions: Allergies Penicillins Allergy (Verified 07/16/20 22:49) Hives Home Medications: Home Medications Medication Instructions Recorded Confirmed Last Taken Type Acetaminophen [Tylenol] 325 mg PO Q6HR 07/17/20 07/17/20 Unknown History Acetaminophen/Codeine [Tylenol 1 tab PO Q4HR PRN 07/17/20 07/17/20 Unknown History /Codeine # 3 tab] AtorvaSTATin [Lipitor] 40 mg PO QHS 07/17/20 07/17/20 Unknown History Azithromycin [Zithromax Z-JENNA] 0 mg PO DAILY 07/17/20 07/17/20 Unknown History Clopidogrel [Plavix] 75 mg PO QDAY 07/17/20 07/17/20 Unknown History Folic Acid [Folvite] 1 mg PO QDAY 07/17/20 07/17/20 Unknown History Furosemide [Lasix TAB] 80 mg PO BID 07/17/20 07/17/20 Unknown History Metoprolol [Lopressor TAB] 50 mg PO BID 07/17/20 07/17/20 Unknown History Spironolactone [Aldactone] 25 mg PO QDAY 07/17/20 07/17/20 Unknown History Thiamine [Vitamin B-1] 100 mg PO QDAY 07/17/20 07/17/20 Unknown History guaiFENesin [Guaifenesin] 400 mg PO Q6HR 07/17/20 07/17/20 Unknown History lisinopriL [Zestril] 20 mg PO QDAY 07/17/20 07/17/20 Unknown History Active Medications: Generic Name Dose Route Start Last Admin Trade Name Freq PRN Reason Stop Dose Admin Acetaminophen 650 mg 07/17/20 00:20 07/17/20 08:21 Tylenol PO 650 mg Q4H PRN Administration Pain MILD(1-3)/Fever >100.5/REYES Hydrocodone Bitart/Acetaminophen 1 each 07/18/20 14:16 07/19/20 13:11 [place] 5/325 PO 1 each Q4H PRN Administration Pain, Moderate (4-6) Aspirin 81 mg 07/19/20 10:00 07/19/20 10:58 Halfprin Ec PO 81 mg QDAY DELFINO Administration Carvedilol 12.5 mg 07/17/20 22:00 07/19/20 11:01 Coreg PO 12.5 mg BID DELFINO Administration Clopidogrel Bisulfate 75 mg 07/19/20 10:00 07/19/20 11:01 Plavix PO 75 mg QDAY DELFINO Administration Hydralazine HCl 10 mg 07/17/20 02:24 07/17/20 06:10 Apresoline IV 10 mg Q6HR PRN Administration Blood Pressure Sodium Chloride 1,000 mls @ 75 mls/hr 07/17/20 00:30 07/19/20 05:30 Nacl 0.9% 1000 Ml IV 75 mls/hr DIRECT DELFINO Administration Clindamycin HCl 900 mg in 50 mls @ 100 mls/hr 07/17/20 14:00 07/19/20 13:12 Cleocin 900 Mg/50 Ml IV 100 mls/hr Q8HR DELFINO Administration Protocol Heparin Sodium/Sodium Chloride 25,000 unit in 500 mls @ 24 mls/hr 07/18/20 15:00 07/19/20 05:31 Heparin/ 0.45% Nacl-25,000 Unit/500 Ml IV 67,500 units/hr TITR DELFINO 1,350 mls/hr Administration Protocol 1,200 UNITS/HR Labetalol HCl 10 mg 07/17/20 17:20 07/19/20 07:25 Labetalol IV 10 mg Q3H PRN Administration Blood Pressure Magnesium Hydroxide 30 ml 07/17/20 00:20 Milk Of Magnesia PO Q4H PRN Constipation Morphine Sulfate 2 mg 07/17/20 00:20 07/18/20 01:11 Morphine IV 2 mg Q4H PRN Administration Pain, Moderate (4-6) Ondansetron HCl 4 mg 07/17/20 00:20 Zofran IV Q8H PRN Nausea And Vomiting Pantoprazole Sodium 40 mg 07/19/20 16:00 Protonix PO QDAC DELFINO Sodium Chloride 10 ml 07/17/20 10:00 07/19/20 11:02 Sodium Chloride Flush Syringe 10 Ml IV 10 ml BID DELFINO Administration Sodium Chloride 10 ml 07/17/20 00:20 Sodium Chloride Flush Syringe 10 Ml IV PRN PRN LINE FLUSH Valsartan 160 mg 07/17/20 22:00 07/19/20 11:01 Diovan PO 160 mg BID DELFINO Administration
--- NOTE | 2020-07-19 16:15 | Progress Note ---
Subjective Date of service: 07/19/20 Principal diagnosis: LE CLI Objective - Constitutional Vitals: Vital Signs - 12hr 07/19/20 07/19/20 07/19/20 05:01 07:25 11:01 Temperature 99.0 F Pulse Rate 74 78 Respiratory 18 Rate Blood Pressure 172/78 172/78 133/57 O2 Sat by Pulse 96 Oximetry 07/19/20 12:13 Temperature 99.3 F Pulse Rate 74 Respiratory 17 Rate Blood Pressure 101/62 O2 Sat by Pulse 93 Oximetry General appearance: Present: no acute distress, well-nourished - EENT Eyes: PERRL, EOM intact ENT: hearing intact, clear oral mucosa Ears: bilateral: normal - Neck Neck: supple, normal ROM - Respiratory Respiratory effort: normal Respiratory: bilateral: CTA - Breasts Breasts: normal - Cardiovascular Rhythm: regular Heart Sounds: Present: S1 & S2. Absent: gallop, rub Extremities: pulses intact, No edema, normal color, Full ROM - Gastrointestinal General gastrointestinal: Present: soft, non-tender, non-distended, normal bowel sounds - Genitourinary Male genitourinary: normal - Integumentary Integumentary: clear, warm, dry - Musculoskeletal Musculoskeletal: 1, strength equal bilaterally - Neurologic Neurologic: moves all extremities - Psychiatric Psychiatric: memory intact, appropriate mood/affect, intact judgment & insight - Labs CBC & Chem 7: 07/18/20 15:01 07/18/20 04:14 Labs: Abnormal lab results 07/18/20 Range/Units 18:37 Heparin Anti-Xa Level 0.11 L (0.3-0.7) U.I./ml
[2020-07-19] MEDS: PANTOPRAZOLE 40 MG TAB PO SCH (18:31)
[2020-07-19] MEDS: traZODone 50 MG TAB PO SCH (23:40)
[2020-07-20 06:37] LABS: Hematocrit 26.4 % (35.5-45.6); Hemoglobin 8.8 gm/dl (11.8-15.2)
[2020-07-20] MEDS: HEPARIN/ 0.45% NACL DRIP 25,000 UNIT/500 ML BAG IV SCH (07:19)
[2020-07-20] MEDS: PANTOPRAZOLE 40 MG TAB PO SCH (09:31)
[2020-07-20] MEDS: carvediloL 12.5 MG TAB PO SCH ×2 (09:31→23:07)
[2020-07-20] MEDS: ASPIRIN EC 81 MG TAB PO SCH (09:31)
[2020-07-20] MEDS: CLOPIDOGREL 75 MG TAB PO SCH (09:31)
[2020-07-20] MEDS: VALSARTAN 160MG TAB PO SCH ×2 (11:04→23:08)
[2020-07-20 14:15] LABS: Basophils % (Auto) 0.3 % (0.0-1.8); Eosinophils % (Auto) 0.1 % (0.0-4.3); Hemoglobin 9.2 gm/dl (11.8-15.2); Lymphocytes # (Auto) 1.1 K/mm3 (1.2-5.4); Lymphocytes % (Auto) 9.2 % (13.4-35.0); Mean Corpuscular HGB Conc 34 % (32-34); Mean Corpuscular Volume 95 fl (84-94); Monocytes % (Auto) 8.4 % (0.0-7.3); Platelet Count 347 K/mm3 (140-440); Red Blood Count 2.83 M/mm3 (3.65-5.03); Red Cell Distribution Width 13.5 % (13.2-15.2)
--- NOTE | 2020-07-20 14:23 | Event Note ---
Date: 07/20/20 VL arterial ultrasound was not performed. Called US department and they told me that the ultrasound would not be performed until thursday. They did not notify me of this, I had to call to find out. I ordered a CT angiogram of the lower extremities with runoff for further evaluation. BMP and CBC ordered.
[2020-07-20 14:29] LABS: Blood Urea Nitrogen 9 mg/dL (9-20); Calcium 8.4 mg/dL (8.4-10.2); Hemolysis Index 2
[2020-07-20 14:49] LABS: BUN/Creatinine Ratio 13
--- NOTE | 2020-07-20 14:51 | Progress Note ---
Assessment and Plan - Patient Problems (1) Cellulitis of foot, left Current Visit: Yes Status: Acute (2) DVT prophylaxis Current Visit: Yes Status: Acute (3) Peripheral vascular disease of lower extremity Current Visit: Yes Status: Acute Subjective Date of service: 07/20/20 Principal diagnosis: LE CLI Objective - Constitutional Vitals: Vital Signs - 12hr 07/20/20 07/20/20 07/20/20 04:34 09:31 11:04 Temperature 99.2 F Pulse Rate 67 87 67 Respiratory 16 Rate Blood Pressure 103/39 124/57 156/90 O2 Sat by Pulse 96 Oximetry 07/20/20 07/20/20 11:12 11:13 Temperature 98.7 F Pulse Rate 62 Respiratory Rate Blood Pressure 156/90 O2 Sat by Pulse 98 Oximetry General appearance: Present: no acute distress, well-nourished - EENT Eyes: PERRL, EOM intact ENT: hearing intact, clear oral mucosa Ears: bilateral: normal - Neck Neck: supple, normal ROM - Respiratory Respiratory effort: normal Respiratory: bilateral: CTA - Breasts Breasts: normal - Cardiovascular Rhythm: regular Heart Sounds: Present: S1 & S2. Absent: gallop, rub Extremities: pulses intact, No edema, normal color, Full ROM - Gastrointestinal General gastrointestinal: Present: soft, non-tender, non-distended, normal bowel sounds - Genitourinary Male genitourinary: normal - Integumentary Integumentary: clear, warm, dry - Musculoskeletal Musculoskeletal: 1, strength equal bilaterally - Neurologic Neurologic: moves all extremities - Psychiatric Psychiatric: memory intact, appropriate mood/affect, intact judgment & insight - Labs CBC & Chem 7: 07/20/20 13:44 07/20/20 13:44 Labs: Abnormal lab results 07/20/20 07/20/20 07/20/20 Range/Units 04:54 04:54 13:44 WBC (4.5-11.0) K/mm3 RBC (3.65-5.03) M/mm3 Hgb 8.8 L D (11.8-15.2) gm/dl Hct 26.4 L D (35.5-45.6) % MCV (84-94) fl MCH (28-32) pg Lymph % (Auto) (13.4-35.0) % [place] % (Auto) (0.0-7.3) % Lymph # (Auto) (1.2-5.4) K/mm3 [place] # (Auto) (0.0-0.8) K/mm3 Seg Neutrophils % (40.0-70.0) % Seg Neutrophils # (1.8-7.7) K/mm3 Heparin Anti-Xa Level 0.10 L 0.17 L (0.3-0.7) U.I./ml Potassium (3.6-5.0) mmol/L Glucose (75-100) mg/dL 07/20/20 07/20/20 Range/Units 13:44 13:44 WBC 11.9 H (4.5-11.0) K/mm3 RBC 2.83 L (3.65-5.03) M/mm3 Hgb 9.2 L (11.8-15.2) gm/dl Hct 27.0 L (35.5-45.6) % MCV 95 H (84-94) fl MCH 33 H (28-32) pg Lymph % (Auto) 9.2 L (13.4-35.0) % [place] % (Auto) 8.4 H (0.0-7.3) % Lymph # (Auto) 1.1 L (1.2-5.4) K/mm3 [place] # (Auto) 1.0 H (0.0-0.8) K/mm3 Seg Neutrophils % 82.0 H (40.0-70.0) % Seg Neutrophils # 9.7 H (1.8-7.7) K/mm3 Heparin Anti-Xa Level (0.3-0.7) U.I./ml Potassium 3.1 L (3.6-5.0) mmol/L Glucose 145 H (75-100) mg/dL
--- NOTE | 2020-07-20 15:46 | Progress Note ---
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 On heparin drip, on aspirin, on Plavix, on Protonix. The left forefoot appears unsalvagable. I am concerned that the left lower extremity may not be salvageable based on pulse exam. Hopefully, patient may be able to only have a TMA, but may need BKA. Arterial ultrasounds unavailable over the weekend. I'll obtain a CTA of the abdo men and pelvis with runoff. H&H lower. Will need to be monitored. Right hand intermittent numbness compatible with carpal tunnel syndrome (1st through 3rd digit, palmar) and is reproducible outside of the hospital. Unclear about diplopia. Discussed with Dr. Lee. Ordered head CT without contrast. Subjective Date of service: 07/20/20 Principal diagnosis: LE CLI Interval history: He has left-sided nonpalpable PT and DP. His left first digit appears ischemic and is cool with eschar at the MTP joint. There is persistent ischemia of the second through fifth digits which are cool with less ischemia than the first digit. The left forefoot appears unsalvagable. There is persistent evidence of deep tissue injury on the dorsum of the midfoot. There is warmth to the left ankle, hindfoot, and midfoot. He is complaining of dipoplia and intermittent right hand numbness. The right hand numbness is in a distribution compatible with carpal tunnel syndrome (palmar, 1st through 3rd digit) and is reproducible when driving outside of the hospital. Unclear about the diplopia. Ultrasounds are unavailable over the weekend for arterial purposes. Will obtain CTA of the abdomen and pelvis with runoff. Objective - Constitutional Vitals: Vital Signs - 12hr 07/20/20 07/20/20 07/20/20 04:34 09:31 11:04 Temperature 99.2 F Pulse Rate 67 87 67 Respiratory 16 Rate Blood Pressure 103/39 124/57 156/90 O2 Sat by Pulse 96 Oximetry 07/20/20 07/20/20 11:12 11:13 Temperature 98.7 F Pulse Rate 62 Respiratory Rate Blood Pressure 156/90 O2 Sat by Pulse 98 Oximetry General appearance: Present: no acute distress - EENT Eyes: EOM intact ENT: hearing intact - Respiratory Respiratory effort: normal Extremities: abnormal (see subjective) - Gastrointestinal General gastrointestinal: Present: soft - Neurologic Neurologic: other (see subjective) - Psychiatric Psychiatric: appropriate mood/affect, cooperative - Labs CBC & Chem 7: 07/20/20 13:44 07/20/20 13:44 Labs: Abnormal lab results 07/20/20 07/20/20 07/20/20 Range/Units 04:54 04:54 13:44 WBC (4.5-11.0) K/mm3 RBC (3.65-5.03) M/mm3 Hgb 8.8 L D (11.8-15.2) gm/dl Hct 26.4 L D (35.5-45.6) % MCV (84-94) fl MCH (28-32) pg Lymph % (Auto) (13.4-35.0) % [place] % (Auto) (0.0-7.3) % Lymph # (Auto) (1.2-5.4) K/mm3 [place] # (Auto) (0.0-0.8) K/mm3 Seg Neutrophils % (40.0-70.0) % Seg Neutrophils # (1.8-7.7) K/mm3 Heparin Anti-Xa Level 0.10 L 0.17 L (0.3-0.7) U.I./ml Potassium (3.6-5.0) mmol/L Creatinine (0.8-1.3) mg/dL Glucose (75-100) mg/dL 07/20/20 07/20/20 Range/Units 13:44 13:44 WBC 11.9 H (4.5-11.0) K/mm3 RBC 2.83 L (3.65-5.03) M/mm3 Hgb 9.2 L (11.8-15.2) gm/dl Hct 27.0 L (35.5-45.6) % MCV 95 H (84-94) fl MCH 33 H (28-32) pg Lymph % (Auto) 9.2 L (13.4-35.0) % [place] % (Auto) 8.4 H (0.0-7.3) % Lymph # (Auto) 1.1 L (1.2-5.4) K/mm3 [place] # (Auto) 1.0 H (0.0-0.8) K/mm3 Seg Neutrophils % 82.0 H (40.0-70.0) % Seg Neutrophils # 9.7 H (1.8-7.7) K/mm3 Heparin Anti-Xa Level (0.3-0.7) U.I./ml Potassium 3.1 L (3.6-5.0) mmol/L Creatinine 0.7 L (0.8-1.3) mg/dL Glucose 145 H (75-100) mg/dL Medications & Allergies - Medications Allergies/Adverse Reactions: Allergies Penicillins Allergy (Verified 07/16/20 22:49) Hives Home Medications: Home Medications Medication Instructions Recorded Confirmed Last Taken Type Acetaminophen [Tylenol] 325 mg PO Q6HR 07/17/20 07/17/20 Unknown History Acetaminophen/Codeine [Tylenol 1 tab PO Q4HR PRN 07/17/20 07/17/20 Unknown Hi story /Codeine # 3 tab] AtorvaSTATin [Lipitor] 40 mg PO QHS 07/17/20 07/17/20 Unknown History Azithromycin [Zithromax Z-JENNA] 0 mg PO DAILY 07/17/20 07/17/20 Unknown History Clopidogrel [Plavix] 75 mg PO QDAY 07/17/20 07/17/20 Unknown History Folic Acid [Folvite] 1 mg PO QDAY 07/17/20 07/17/20 Unknown History Furosemide [Lasix TAB] 80 mg PO BID 07/17/20 07/17/20 Unknown History Metoprolol [Lopressor TAB] 50 mg PO BID 07/17/20 07/17/20 Unknown History Spironolactone [Aldactone] 25 mg PO QDAY 07/17/20 07/17/20 Unknown History Thiamine [Vitamin B-1] 100 mg PO QDAY 07/17/20 07/17/20 Unknown History guaiFENesin [Guaifenesin] 400 mg PO Q6HR 07/17/20 07/17/20 Unknown History lisinopriL [Zestril] 20 mg PO QDAY 07/17/20 07/17/20 Unknown History Active Medications: Generic Name Dose Route Start Last Admin Trade Name Freq PRN Reason Stop Dose Admin Acetaminophen 650 mg 07/17/20 00:20 07/17/20 08:21 Tylenol PO 650 mg Q4H PRN Administration Pain MILD(1-3)/Fever >100.5/REYES Hydrocodone Bitart/Acetaminophen 1 each 07/18/20 14:16 07/19/20 23:40 [place] 5/325 PO 1 each Q4H PRN Administration Pain, Moderate (4-6) Aspirin 81 mg 07/19/20 10:00 07/20/20 09:31 Halfprin Ec PO 81 mg QDAY DELFINO Administration Carvedilol 12.5 mg 07/17/20 22:00 07/20/20 09:31 Coreg PO 12.5 mg BID DELFINO Administration Clopidogrel Bisulfate 75 mg 07/19/20 10:00 07/20/20 09:31 Plavix PO 75 mg QDAY DELFINO Administration Hydralazine HCl 10 mg 07/17/20 02:24 07/17/20 06:10 Apresoline IV 10 mg Q6HR PRN Administration Blood Pressure Sodium Chloride 1,000 mls @ 75 mls/hr 07/17/20 00:30 07/19/20 05:30 Nacl 0.9% 1000 Ml IV 75 mls/hr DIRECT DELFINO Administration Clindamycin HCl 900 mg in 50 mls @ 100 mls/hr 07/17/20 14:00 07/20/20 05:07 Cleocin 900 Mg/50 Ml IV 100 mls/hr Q8HR DELFINO Administration Protocol Heparin Sodium/Sodium Chloride 25,000 unit in 500 mls @ 24 mls/hr 07/18/20 15:00 07/20/20 15:30 Heparin/ 0.45% Nacl-25,000 Unit/500 Ml IV Infused TITR DELFINO Titration Protocol 1,200 UNITS/HR Labetalol HCl 10 mg 07/17/20 17:20 07/19/20 07:25 Labetalol IV 10 mg Q3H PRN Administration Blood Pressure Magnesium Hydroxide 30 ml 07/17/20 00:20 Milk Of Magnesia PO Q4H PRN Constipation Morphine Sulfate 2 mg 07/17/20 00:20 07/18/20 01:11 Morphine IV 2 mg Q4H PRN Administration Pain, Moderate (4-6) Ondansetron HCl 4 mg 07/17/20 00:20 Zofran IV Q8H PRN Nausea And Vomiting Pantoprazole Sodium 40 mg 07/19/20 16:00 07/20/20 09:31 Protonix PO 40 mg QDAC DELIFNO Administration Sodium Chloride 10 ml 07/17/20 10:00 07/20/20 11:04 Sodium Chloride Flush Syringe 10 Ml IV 10 ml BID DELFINO Administration Sodium Chloride 10 ml 07/17/20 00:20 Sodium Chloride Flush Syringe 10 Ml IV PRN PRN LINE FLUSH Trazodone HCl 50 mg 07/19/20 23:45 07/19/20 23:40 Desyrel PO 50 mg QHS DELFINO Administration Valsartan 160 mg 07/17/20 22:00 07/20/20 11:04 Diovan PO 160 mg BID DELFINO Administration
--- NOTE | 2020-07-20 16:35 | Cat Scan Report ---
NONENHANCED CT SCAN OF THE HEAD: INDICATION / CLINICAL INFORMATION: 64 years Male; headache with diplopia. TECHNIQUE: Routine CT head without contrast. All CT scans at this location are performed using CT dos e reduction for ALARA by means of automated exposure control. COMPARISON: None. FINDINGS: BRAIN / INTRACRANIAL CONTENTS: No intracerebral hemorrhage or space taking lesion or focal area of va sogenic edema; no acute/subacute territorial infarction; lower attenuation area in the right side of midbrain and in the left anterior darlyn Artifact Ischemia; medulla in the cerebellar hemispheres are n ormal No acute hemorrhage, mass effect, midline shift, hydrocephalus, or acute, large territorial infarct. No chronic infarct or focal atrophy. Normal brain volume and ventricular/sulcal size for age. No sign ificant white matter abnormality. CRANIOCERVICAL JUNCTION: No significant abnormality. ORBITS: No significant abnormality of visualized orbits. SINUSES / MASTOIDS: No significant abnormality of the visualized paranasal sinuses or mastoid air debbie ls. ADDITIONAL FINDINGS: None. IMPRESSION: No acute focal parenchymal lesion in the brain Signer Name: Rodríguez Yang MD Signed: 07/20/2020 4:31 PM Workstation Name: [id number]
--- NOTE | 2020-07-20 17:09 | Cat Scan Report ---
CT angio abd/femoral abd aorta HISTORY: Ischemic left lower extremity. TECHNIQUE: Volumetric CT angiographic data was obtained of the abdomen, pelvis, and lower extremities following the administration of 100 mL of mL of Omnipaque-[address] angiograp hy protocol. Standard axial and MIP axial and coronal datasets were submitted. All CT scans at this location are performed using CT dose reduction for ALARA by means of automated exposure control. COMPARISON STUDY: Arterial Doppler from 07/16/2020. FINDINGS: AORTA/MESENTERIC/RENAL: There is severe atherosclerotic narrowing of the origin of the celiac trunk. The SMA is patent. There is moderate right and severe left atherosclerotic narrowing of the renal arteries. FELIPE is patent. Mo derate atherosclerotic changes of the abdominal aorta. No evidence of aneurysm or dissection. 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 The remainder of the right common iliac as well as the right internal and external iliac arteries are patent. Right common femoral and profunda femoral arteries are heavily diseased though patent. There is moder ate narrowing of the right proximal SFA. The remainder of the right SFA is severely diseased though p atent. There is multifocal severe narrowing of the distal right popliteal artery and tibioperoneal tr unk. Evaluation for distal runoff is limited due to diminutive vessel caliber and marked calcificatio ns. Right anterior tibial and peroneal arteries are heavily diseased, though appear to be patent to t he ankle. It is suspected that the right posterior tibial artery is occluded proximally. LEFT ARTERIAL SYSTEM: Left common iliac, internal iliac, and external iliac arteries are patent. Left common femoral is patent. The left profunda femoral artery is heavily diseased and occluded at i ts midportion. Left SFA is patent in its entirety. There is multifocal severe stenosis of the poplite al artery without occlusion. Presumed stent of the proximal left posterior tibial artery. The posteri or tibial artery is occluded in the midcalf. Evaluation for runoff of the left lower extremity is sev erely limited due to small vessel caliber and severe calcifications. The left anterior tibial artery is severely diseased, without discrete flow identified. The left peroneal artery demonstrates severe multifocal stenosis, though appears patent at the ankle. ABDOMEN/PELVIS: Cholelithiasis. Right renal cysts. There is a skin wound in the right inguinal region. Underlying inf lammatory changes and gas may reflect recent instrumentation. No organized fluid collection. Large fa t-containing periumbilical hernia. OSSEOUS STRUCTURES: No acute process. IMPRESSION: 1. Severe arterial occlusive disease, as above. Evaluation for runoff of both lower extremity cyst is severely limited due to small vessel caliber and severe atherosclerotic calcification. On the left, there appears to be occlusion of the left posterior tibial at the mid calf and anterior tibial artery proximally. There is severe multifocal stenosis of the left peroneal artery, which appears grossly p atent to the ankle. The right anterior tibial and peroneal arteries are heavily diseased, though appe ar patent to the ankle, though the right posterior tibial artery appears to be occluded proximally. 2. Skin wound in the right inguinal region with underlying inflammatory changes and gas, which may be related to recent instrumentation. Recommend correlation to exclude soft tissue infection. No eviden ce of abscess or other fluid collection. Signer Name: Ghanshyam Jeronimo MD Signed: 07/20/2020 5:04 PM Workstation Name: [id number]
[2020-07-20] MEDS: guaiFENesin/CODEINE 100-10MG ORAL LIQD 5 ML PO PRN (18:44)
[2020-07-20] MEDS: traZODone 50 MG TAB PO SCH (20:00)
[2020-07-20] MEDS: HYDROcodone/ACETAMINOPHEN 5-325 MG TAB PO PRN (20:34)
[2020-07-21] MEDS: HEPARIN/ 0.45% NACL DRIP 25,000 UNIT/500 ML BAG IV SCH ×4 (01:36→09:57)
[2020-07-21 06:25] LABS: Basophils # (Auto) 0.1 K/mm3 (0.0-0.1); Basophils % (Auto) 0.6 % (0.0-1.8); Eosinophils % (Auto) 0.3 % (0.0-4.3); Hemoglobin 9.1 gm/dl (11.8-15.2); Lymphocytes # (Auto) 1.8 K/mm3 (1.2-5.4); Lymphocytes % (Auto) 15.1 % (13.4-35.0); Mean Corpuscular HGB Conc 34 % (32-34); Mean Corpuscular Volume 95 fl (84-94); Monocytes % (Auto) 8.5 % (0.0-7.3); Platelet Count 365 K/mm3 (140-440); Red Blood Count 2.84 M/mm3 (3.65-5.03); Red Cell Distribution Width 13.5 % (13.2-15.2)
[2020-07-21 06:37] LABS: Alanine Aminotransferase 67 units/L (7-56); Albumin 2.9 g/dL (3.9-5); BUN/Creatinine Ratio 10; Blood Urea Nitrogen 8 mg/dL (9-20); Calcium 8.2 mg/dL (8.4-10.2); Hemolysis Index 1
[2020-07-21] MEDS: PANTOPRAZOLE 40 MG TAB PO SCH (08:26)
[2020-07-21] MEDS: carvediloL 12.5 MG TAB PO SCH ×2 (09:58→22:01)
[2020-07-21] MEDS: VALSARTAN 160MG TAB PO SCH ×2 (09:58→22:01)
[2020-07-21] MEDS: ASPIRIN EC 81 MG TAB PO SCH (09:58)
[2020-07-21] MEDS: CLOPIDOGREL 75 MG TAB PO SCH (09:58)
--- NOTE | 2020-07-21 16:18 | Progress Note ---
Assessment and Plan - Patient Problems (1) Cellulitis of foot, left Current Visit: Yes Status: Acute (2) DVT prophylaxis Current Visit: Yes Status: Acute (3) Peripheral vascular disease of lower extremity Current Visit: Yes Status: Acute Subjective Date of service: 07/21/20 Principal diagnosis: LE CLI Objective - Constitutional Vitals: Vital Signs - 12hr 07/21/20 07/21/20 07/21/20 04:35 09:00 09:56 Temperature 32.1 F L Pulse Rate 69 74 Respiratory 17 18 Rate Blood Pressure 140/46 161/63 O2 Sat by Pulse 95 95 97 Oximetry 07/21/20 07/21/20 11:17 12:07 Temperature 98.7 F 99.9 F H Pulse Rate 78 Respiratory 22 Rate Blood Pressure 162/71 O2 Sat by Pulse 97 Oximetry General appearance: Present: no acute distress, well-nourished - EENT Eyes: PERRL, EOM intact ENT: hearing intact, clear oral mucosa Ears: bilateral: normal - Neck Neck: supple, normal ROM - Respiratory Respiratory effort: normal Respiratory: bilateral: CTA - Breasts Breasts: normal - Cardiovascular Rhythm: regular Heart Sounds: Present: S1 & S2. Absent: gallop, rub Extremities: pulses intact, No edema, normal color, Full ROM - Gastrointestinal General gastrointestinal: Present: soft, non-tender, non-distended, normal bowel sounds - Genitourinary Male genitourinary: normal - Integumentary Integumentary: clear, warm, dry - Musculoskeletal Musculoskeletal: 1, strength equal bilaterally - Neurologic Neurologic: moves all extremities - Psychiatric Psychiatric: memory intact, appropriate mood/affect, intact judgment & insight - Labs CBC & Chem 7: 07/21/20 05:29 07/21/20 05:29 Labs: Abnormal lab results 07/20/20 07/21/20 07/21/20 Range/Units 23:07 05:29 05:29 WBC 11.9 H (4.5-11.0) K/mm3 RBC 2.84 L (3.65-5.03) M/mm3 Hgb 9.1 L (11.8-15.2) gm/dl Hct 27.0 L (35.5-45.6) % MCV 95 H (84-94) fl [place] % (Auto) 8.5 H (0.0-7.3) % [place] # (Auto) 1.0 H (0.0-0.8) K/mm3 Seg Neutrophils % 75.5 H (40.0-70.0) % Seg Neutrophils # 9.0 H (1.8-7.7) K/mm3 Heparin Anti-Xa Level 0.26 L (0.3-0.7) U.I./ml Potassium 3.1 L (3.6-5.0) mmol/L BUN 8 L (9-20) mg/dL Glucose 121 H (75-100) mg/dL Calcium 8.2 L (8.4-10.2) mg/dL AST 64 H (5-40) units/L ALT 67 H (7-56) units/L Albumin 2.9 L (3.9-5) g/dL
[2020-07-21] MEDS: guaiFENesin/CODEINE 100-10MG ORAL LIQD 5 ML PO PRN ×2 (16:52→22:03)
--- NOTE | 2020-07-21 17:46 | Progress Note ---
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 On heparin drip, on aspirin, on Plavix, on Protonix. CT angiogram demonstrates occlusion of the left [employer] and [place] with peroneal runoff. I am concerned that the left lower extremity forefoot. Hopefully, patient may be able to only have a TMA, but may need BKA. May schedule for revascularization reattempt on Thursday based on clinical status. Subjective Date of service: 07/21/20 Principal diagnosis: LE CLI Interval history: He has left-sided nonpalpable PT and DP. His left first digit appears ischemic and with eschar at the MTP joint. However, the ischemia overall has improved with warm of the toes and lack of coldness. Despite this, I there is persistent evidence of deep tissue injury on the dorsum of the midfoot. There is warmth to the left ankle, hindfoot, and midfoot. Since yesterday, neurologic complaints have resolved. Objective - Constitutional Vitals: Vital Signs - 12hr 07/21/20 07/21/20 07/21/20 09:00 09:56 11:17 Temperature 98.7 F Pulse Rate 74 Respiratory 18 Rate Blood Pressure 161/63 O2 Sat by Pulse 95 97 Oximetry 07/21/20 12:07 Temperature 99.9 F H Pulse Rate 78 Respiratory 22 Rate Blood Pressure 162/71 O2 Sat by Pulse 97 Oximetry General appearance: Present: no acute distress - EENT Eyes: EOM intact ENT: hearing intact - Respiratory Respiratory effort: normal Extremities: abnormal (see subjective) - Gastrointestinal General gastrointestinal: Present: soft, non-tender - Psychiatric Psychiatric: appropriate mood/affect, cooperative - Labs CBC & Chem 7: 07/21/20 05:29 07/21/20 05:29 Labs: Abnormal lab results 07/20/20 07/21/20 07/21/20 Range/Units 23:07 05:29 05:29 WBC 11.9 H (4.5-11.0) K/mm3 RBC 2.84 L (3.65-5.03) M/mm3 Hgb 9.1 L (11.8-15.2) gm/dl Hct 27.0 L (35.5-45.6) % MCV 95 H (84-94) fl [place] % (Auto) 8.5 H (0.0-7.3) % [place] # (Auto) 1.0 H (0.0-0.8) K/mm3 Seg Neutrophils % 75.5 H (40.0-70.0) % Seg Neutrophils # 9.0 H (1.8-7.7) K/mm3 Heparin Anti-Xa Level 0.26 L (0.3-0.7) U.I./ml Potassium 3.1 L (3.6-5.0) mmol/L BUN 8 L (9-20) mg/dL Glucose 121 H (75-100) mg/dL Calcium 8.2 L (8.4-10.2) mg/dL AST 64 H (5-40) units/L ALT 67 H (7-56) units/L Albumin 2.9 L (3.9-5) g/dL Medications & Allergies - Medications Allergies/Adverse Reactions: Allergies Penicillins Allergy (Verified 07/16/20 22:49) Hives Home Medications: Home Medications Medication Instructions Recorded Confirmed Last Taken Type Acetaminophen [Tylenol] 325 mg PO Q6HR 07/17/20 07/17/20 Unknown History Acetaminophen/Codeine [Tylenol 1 tab PO Q4HR PRN 07/17/20 07/17/20 Unknown History /Codeine # 3 tab] AtorvaSTATin [Lipitor] 40 mg PO QHS 07/17/20 07/17/20 Unknown History Azithromycin [Zithromax Z-JENNA] 0 mg PO DAILY 07/17/20 07/17/20 Unknown History Clopidogrel [Plavix] 75 mg PO QDAY 07/17/20 07/17/20 Unknown History Folic Acid [Folvite] 1 mg PO QDAY 07/17/20 07/17/20 Unknown History Furosemide [Lasix TAB] 80 mg PO BID 07/17/20 07/17/20 Unknown History Metoprolol [Lopressor TAB] 50 mg PO BID 07/17/20 07/17/20 Unknown History Spironolactone [Aldactone] 25 mg PO QDAY 07/17/20 07/17/20 Unknown History Thiamine [Vitamin B-1] 100 mg PO QDAY 07/17/20 07/17/20 Unknown History guaiFENesin [Guaifenesin] 400 mg PO Q6HR 07/17/20 07/17/20 Unknown History lisinopriL [Zestril] 20 mg PO QDAY 07/17/20 07/17/20 Unknown History Active Medications: Generic Name Dose Route Start Last Admin Trade Name Freq PRN Reason Stop Dose Admin Acetaminophen 650 mg 07/17/20 00:20 07/17/20 08:21 Tylenol PO 650 mg Q4H PRN Administration Pain MILD(1-3)/Fever >100.5/REYES Hydrocodone Bitart/Acetaminophen 1 each 07/18/20 14:16 07/20/20 20:34 [place] 5/325 PO 1 each Q4H PRN Administration Pain, Moderate (4-6) Aspirin 81 mg 07/19/20 10:00 07/21/20 09:58 Halfprin Ec PO 81 mg QDAY DELFINO Administration Carvedilol 12.5 mg 07/17/20 22:00 07/21/20 09:58 Coreg PO 12.5 mg BID DELFINO Administration Clopidogrel Bisulfate 75 mg 07/19/20 10:00 07/21/20 09:58 Plavix PO 75 mg QDAY DELFINO Administration Hydralazine HCl 10 mg 07/17/20 02:24 07/17/20 06:10 Apresoline IV 10 mg Q6HR PRN Administration Blood Pressure Sodium Chloride 1,000 mls @ 75 mls/hr 07/17/20 00:30 07/19/20 05:30 Nacl 0.9% 1000 Ml IV 75 mls/hr DIRECT DELFINO Administration Clindamycin HCl 900 mg in 50 mls @ 100 mls/hr 07/17/20 14:00 07/21/20 13:44 Cleocin 900 Mg/50 Ml IV 100 mls/hr Q8HR DELFINO Administration Protocol Heparin Sodium/Sodium Chloride 25,000 unit in 500 mls @ 24 mls/hr 07/18/20 15:00 07/21/20 09:57 Heparin/ 0.45% Nacl-25,000 Unit/500 Ml IV 1,700 units/hr TITR DELFINO 34 mls/hr Administration Protocol 1,200 UNITS/HR Labetalol HCl 10 mg 07/17/20 17:20 07/19/20 07:25 Labetalol IV 10 mg Q3H PRN Administration Blood Pressure Magnesium Hydroxide 30 ml 07/17/20 00:20 Milk Of Magnesia PO Q4H PRN Constipation Morphine Sulfate 2 mg 07/17/20 00:20 07/18/20 01:11 Morphine IV 2 mg Q4H PRN Administration Pain, Moderate (4-6) Ondansetron HCl 4 mg 07/17/20 00:20 Zofran IV Q8H PRN Nausea And Vomiting Pantoprazole Sodium 40 mg 07/19/20 16:00 07/21/20 08:26 Protonix PO 40 mg QDAC DELFINO Administration Pseudoephedrine/Acetam/Chlorphenir 10 ml 07/20/20 18:21 07/21/20 16:52 Robitussin Ac PO 10 ml BID PRN Administration Cough Sodium Chloride 10 ml 07/17/20 10:00 07/21/20 09:58 Sodium Chloride Flush Syringe 10 Ml IV 10 ml BID DELFINO Administration Sodium Chloride 10 ml 07/17/20 00:20 Sodium Chloride Flush Syringe 10 Ml IV PRN PRN LINE FLUSH Trazodone HCl 50 mg 07/19/20 23:45 07/20/20 20:00 Desyrel PO 50 mg QHS DELFINO Administration Valsartan 160 mg 07/17/20 22:00 07/21/20 09:58 Diovan PO 160 mg BID DELFINO Administration
[2020-07-21] MEDS: traZODone 50 MG TAB PO SCH (22:01)
[2020-07-22] MEDS: HEPARIN/ 0.45% NACL DRIP 25,000 UNIT/500 ML BAG IV SCH ×2 (05:27→23:29)
[2020-07-22 06:24] LABS: Hematocrit 26.1 % (35.5-45.6); Hemoglobin 8.9 gm/dl (11.8-15.2)
[2020-07-22] MEDS: PANTOPRAZOLE 40 MG TAB PO SCH (08:14)
[2020-07-22] MEDS: ASPIRIN EC 81 MG TAB PO SCH (09:37)
[2020-07-22] MEDS: carvediloL 12.5 MG TAB PO SCH ×2 (09:37→21:02)
[2020-07-22] MEDS: CLOPIDOGREL 75 MG TAB PO SCH (09:37)
[2020-07-22] MEDS: VALSARTAN 160MG TAB PO SCH ×2 (09:37→21:01)
[2020-07-22] MEDS: guaiFENesin/CODEINE 100-10MG ORAL LIQD 5 ML PO PRN ×2 (12:18→20:57)
--- NOTE | 2020-07-22 16:44 | Progress Note ---
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 On heparin drip, on aspirin, on Plavix, on Protonix. 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 I am concerned about that the left lower extremity forefoot which is now starting to demarcate. Hopefully, patient may be able to only have a TMA, but may need BKA. May schedule for revascularization reattempt on Thursday based on clinical status. Subjective Date of service: 07/22/20 Principal diagnosis: LE CLI Interval history: He has left-sided nonpalpable PT and DP. His left first digit appears ischemic and with eschar at the MTP joint. The 2nd and 3rd digits are also ischemic and blue, and there is evidence of demarcation at the dorsum of the midfoot. However, there is warmth to the midfoot and plantar portion of the foot. Objective - Constitutional Vitals: Vital Signs - 12hr 07/22/20 07/22/20 07/22/20 05:48 06:26 09:38 Temperature 98 F 98 F Pulse Rate 90 72 Respiratory 20 17 Rate Blood Pressure 147/66 Blood Pressure 142/86 120/53 [Right] O2 Sat by Pulse 93 96 Oximetry 07/22/20 11:53 Temperature 97.3 F L Pulse Rate 70 Respiratory 24 Rate Blood Pressure 145/66 Blood Pressure [Right] O2 Sat by Pulse 94 Oximetry General appearance: Present: no acute distress - EENT Eyes: EOM intact ENT: hearing intact Extremities: abnormal (see subjective) - Gastrointestinal General gastrointestinal: Present: soft, non-tender - Psychiatric Psychiatric: appropriate mood/affect, cooperative - Labs CBC & Chem 7: 07/22/20 04:40 07/21/20 05:29 Labs: Abnormal lab results 07/22/20 07/22/20 Range/Units 04:40 13:10 Hgb 8.9 L (11.8-15.2) gm/dl Hct 26.1 L (35.5-45.6) % Heparin Anti-Xa Level < 0.10 L (0.3-0.7) U.I./ml Medications & Allergies - Medications Allergies/Adverse Reactions: Allergies Penicillins Allergy (Verified 07/16/20 22:49) Hives Home Medications: Home Medications Medication Instructions Recorded Confirmed Last Taken Type Acetaminophen [Tylenol] 325 mg PO Q6HR 07/17/20 07/17/20 Unknown History Acetaminophen/Codeine [Tylenol 1 tab PO Q4HR PRN 07/17/20 07/17/20 Unknown History /Codeine # 3 tab] AtorvaSTATin [Lipitor] 40 mg PO QHS 07/17/20 07/17/20 Unknown History Azithromycin [Zithromax Z-JENNA] 0 mg PO DAILY 07/17/20 07/17/20 Unknown History Clopidogrel [Plavix] 75 mg PO QDAY 07/17/20 07/17/20 Unknown History Folic Acid [Folvite] 1 mg PO QDAY 07/17/20 07/17/20 Unknown History Furosemide [Lasix TAB] 80 mg PO BID 07/17/20 07/17/20 Unknown History Metoprolol [Lopressor TAB] 50 mg PO BID 07/17/20 07/17/20 Unknown History Spironolactone [Aldactone] 25 mg PO QDAY 07/17/20 07/17/20 Unknown History Thiamine [Vitamin B-1] 100 mg PO QDAY 07/17/20 07/17/20 Unknown History guaiFENesin [Guaifenesin] 400 mg PO Q6HR 07/17/20 07/17/20 Unknown History lisinopriL [Zestril] 20 mg PO QDAY 07/17/20 07/17/20 Unknown History Active Medications: Generic Name Dose Route Start Last Admin Trade Name Freq PRN Reason Stop Dose Admin Acetaminophen 650 mg 07/17/20 00:20 07/17/20 08:21 Tylenol PO 650 mg Q4H PRN Administration Pain MILD(1-3)/Fever >100.5/REYES Hydrocodone Bitart/Acetaminophen 1 each 07/18/20 14:16 07/20/20 20:34 [place] 5/325 PO 1 each Q4H PRN Administration Pain, Moderate (4-6) Aspirin 81 mg 07/19/20 10:00 07/22/20 09:37 Halfprin Ec PO 81 mg QDAY DELFINO Administration Carvedilol 12.5 mg 07/17/20 22:00 07/22/20 09:37 Coreg PO 12.5 mg BID DELFINO Administration Clopidogrel Bisulfate 75 mg 07/19/20 10:00 07/22/20 09:37 Plavix PO 75 mg QDAY DELFINO Administration Docusate Sodium 100 mg 07/22/20 22:00 Colace PO BID DELFINO Hydralazine HCl 10 mg 07/17/20 02:24 07/17/20 06:10 Apresoline IV 10 mg Q6HR PRN Administration Blood Pressure Sodium Chloride 1,000 mls @ 75 mls/hr 07/17/20 00:30 07/19/20 05:30 Nacl 0.9% 1000 Ml IV 75 mls/hr DIRECT DELFINO Administration Clindamycin HCl 900 mg in 50 mls @ 100 mls/hr 07/17/20 14:00 07/22/20 14:32 Cleocin 900 Mg/50 Ml IV 100 mls/hr Q8HR DELFINO Administration Protocol Heparin Sodium/Sodium Chloride 25,000 unit in 500 mls @ 24 mls/hr 07/18/20 15:00 07/22/20 15:02 Heparin/ 0.45% Nacl-25,000 Unit/500 Ml IV 1,850 units/hr TITR DELFINO 37 mls/hr Titration Protocol 1,200 UNITS/HR Labetalol HCl 10 mg 07/17/20 17:20 07/19/20 07:25 Labetalol IV 10 mg Q3H PRN Administration Blood Pressure Magnesium Hydroxide 30 ml 07/17/20 00:20 Milk Of Magnesia PO Q4H PRN Constipation Morphine Sulfate 2 mg 07/17/20 00:20 07/18/20 01:11 Morphine IV 2 mg Q4H PRN Administration Pain, Moderate (4-6) Ondansetron HCl 4 mg 07/17/20 00:20 Zofran IV Q8H PRN Nausea And Vomiting Pantoprazole Sodium 40 mg 07/19/20 16:00 07/22/20 08:14 Protonix PO 40 mg QDAC DELFINO Administration Pseudoephedrine/Acetam/Chlorphenir 10 ml 07/20/20 18:21 07/22/20 12:18 Robitussin Ac PO 10 ml BID PRN Administration Cough Sodium Chloride 10 ml 07/17/20 10:00 07/22/20 09:38 Sodium Chloride Flush Syringe 10 Ml IV 10 ml BID DELFINO Administration Sodium Chloride 10 ml 07/17/20 00:20 Sodium Chloride Flush Syringe 10 Ml IV PRN PRN LINE FLUSH Trazodone HCl 50 mg 07/19/20 23:45 07/21/20 22:01 Desyrel PO 50 mg QHS DELFINO Administration Valsartan 160 mg 07/17/20 22:00 07/22/20 09:37 Diovan PO 160 mg BID DELFINO Administration
[2020-07-22] MEDS: traZODone 50 MG TAB PO SCH (21:01)
[2020-07-22] MEDS: DOCUSATE SODIUM 100 MG CAP PO SCH (21:02)
--- NOTE | 2020-07-22 22:40 | Progress Note ---
Assessment and Plan - Patient Problems (1) Cellulitis of foot, left Current Visit: Yes Status: Acute (2) DVT prophylaxis Current Visit: Yes Status: Acute (3) Peripheral vascular disease of lower extremity Current Visit: Yes Status: Acute Subjective Date of service: 07/22/20 Principal diagnosis: LE CLI Objective - Constitutional Vitals: Vital Signs - 12hr 07/22/20 07/22/20 11:53 17:00 Temperature 97.3 F L 98.5 F Pulse Rate 70 76 Respiratory 24 24 Rate Blood Pressure 145/66 154/58 O2 Sat by Pulse 94 95 Oximetry General appearance: Present: no acute distress, well-nourished - EENT Eyes: PERRL, EOM intact ENT: hearing intact, clear oral mucosa Ears: bilateral: normal - Neck Neck: supple, normal ROM - Respiratory Respiratory effort: normal Respiratory: bilateral: CTA - Breasts Breasts: normal - Cardiovascular Rhythm: regular Heart Sounds: Present: S1 & S2. Absent: gallop, rub Extremities: pulses intact, No edema, normal color, Full ROM - Gastrointestinal General gastrointestinal: Present: soft, non-tender, non-distended, normal bowel sounds - Genitourinary Male genitourinary: normal - Integumentary Integumentary: clear, warm, dry - Musculoskeletal Musculoskeletal: 1, strength equal bilaterally - Neurologic Neurologic: moves all extremities - Psychiatric Psychiatric: memory intact, appropriate mood/affect, intact judgment & insight - Labs CBC & Chem 7: 07/22/20 04:40 07/21/20 05:29 Labs: Abnormal lab results 07/22/20 07/22/20 Range/Units 04:40 13:10 Hgb 8.9 L (11.8-15.2) gm/dl Hct 26.1 L (35.5-45.6) % Heparin Anti-Xa Level < 0.10 L (0.3-0.7) U.I./ml
[2020-07-22] MEDS: ACETAMINOPHEN 325 MG TAB PO PRN (23:25)
[2020-07-22] MEDS: HYDROcodone/ACETAMINOPHEN 5-325 MG TAB PO PRN (23:28)
[2020-07-23 04:55] LABS: Basophils # (Auto) 0.1 K/mm3 (0.0-0.1); Basophils % (Auto) 0.8 % (0.0-1.8); Eosinophils # (Auto) 0.1 K/mm3 (0.0-0.4); Eosinophils % (Auto) 0.9 % (0.0-4.3); Hematocrit 26.3 % (35.5-45.6); Lymphocytes # (Auto) 1.7 K/mm3 (1.2-5.4); Mean Corpuscular HGB Conc 34 % (32-34); Mean Corpuscular Volume 95 fl (84-94); Monocytes # (Auto) 0.8 K/mm3 (0.0-0.8); Monocytes % (Auto) 7.7 % (0.0-7.3); Platelet Count 409 K/mm3 (140-440); Red Blood Count 2.78 M/mm3 (3.65-5.03); Red Cell Distribution Width 13.6 % (13.2-15.2)
[2020-07-23 05:16] LABS: Alanine Aminotransferase 72 units/L (7-56); Albumin 3.1 g/dL (3.9-5); BUN/Creatinine Ratio 10; Blood Urea Nitrogen 8 mg/dL (9-20); Calcium 8.6 mg/dL (8.4-10.2); Hemolysis Index 5
[2020-07-23] MEDS: ASPIRIN EC 81 MG TAB PO SCH (10:17)
[2020-07-23] MEDS: PANTOPRAZOLE 40 MG TAB PO SCH (10:17)
[2020-07-23] MEDS: VALSARTAN 160MG TAB PO SCH ×2 (10:17→21:02)
[2020-07-23] MEDS: CLOPIDOGREL 75 MG TAB PO SCH (10:17)
[2020-07-23] MEDS: DOCUSATE SODIUM 100 MG CAP PO SCH ×2 (10:17→21:02)
[2020-07-23] MEDS: carvediloL 12.5 MG TAB PO SCH ×2 (10:17→21:02)
[2020-07-23] MEDS: guaiFENesin/CODEINE 100-10MG ORAL LIQD 5 ML PO PRN ×2 (10:27→16:51)
[2020-07-23] MEDS: HEPARIN/ 0.45% NACL DRIP 25,000 UNIT/500 ML BAG IV SCH (12:34)
--- NOTE | 2020-07-23 12:56 | Vascular Lab Report ---
DUPLEX DOPPLER LOWER EXTREMITY ARTERIAL, BILATERAL INDICATION / CLINICAL INFORMATION: lower extremity ischemia. TECHNIQUE: Arterial duplex examination of both lower extremities performed using B-mode, color flow and spectral Doppler assessment. FINDINGS: RIGHT: Common Femoral Artery: PSV 136 cm/sec. Biphasic waveform. Proximal SFA: PSV 162 cm/sec. Biphasic waveform. Mid SFA: PSV 126 cm/sec. Biphasic waveform. Distal SFA: PSV 67 cm/sec. Monophasic waveform. Popliteal artery: PSV 69 cm/sec. Monophasic waveform. Posterior tibial artery: PSV 23 cm/sec. Monophasic waveform. Dorsalis Pedis Artery: PSV 11 cm/sec. Monophasic waveform. LEFT: Common Femoral Artery: PSV 144 cm/sec. Biphasic waveform. Proximal SFA: PSV 149 cm/sec. Biphasic waveform. Mid SFA: PSV 124 cm/sec. Biphasic waveform. Distal SFA: PSV 78 cm/sec. Monophasic waveform. Popliteal artery: PSV 93 cm/sec. Monophasic waveform. Posterior tibial artery: Occluded. Dorsalis Pedis Artery: PSV 11 cm/sec. Monophasic waveform. Right YESSY: 0.97 Left YESSY: 0.57 IMPRESSION: 1. Hemodynamically significant bilateral peripheral arterial disease, which appears to be worse on th e left. The left posterior tibial artery appears occluded. Ankle-Brachial Index (YESSY): - Calcified arteries > 1.4 - Normal = 0.9-1.4 - Mild PAD = 0.7-0.89 - Moderate PAD = 0.51-0.69 - Severe PAD < 0.5 Doppler Waveform: - Triphasic is normal. - Biphasic is abnormal if clear transition from triphasic signal along vascular tree. - Monophasic is abnormal. Signer Name: Norbert Francisco MD Signed: 07/23/2020 12:52 PM Workstation Name: [id number]
--- NOTE | 2020-07-23 14:35 | Progress Note ---
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 On heparin drip, on aspirin, on Plavix, on Protonix. 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 I am concerned about that the left lower extremity forefoot which is now starting to demarcate. Hopefully, patient may be able to only have a TMA, but may need BKA. Schedule for revascularization reattempt on Thursday. Ativan PRN sleep provided. Subjective Date of service: 07/23/20 Principal diagnosis: LE CLI Interval history: He has left-sided nonpalpable PT and DP. His left first digit appears ischemic and with eschar at the MTP joint. The 2nd and 3rd digits are also ischemic and blue, and there is evidence of demarcation at the dorsum of the midfoot. However, there is warmth to the midfoot and plantar portion of the foot. Objective - Constitutional Vitals: Vital Signs - 12hr 07/23/20 07/23/20 07/23/20 05:36 10:17 12:37 Temperature 98.9 F 98.9 F Pulse Rate 62 62 66 Respiratory 20 20 Rate Blood Pressure 171/84 171/84 210/93 Blood Pressure [Left] O2 Sat by Pulse 97 93 Oximetry 07/23/20 07/23/20 12:57 13:06 Temperature Pulse Rate 72 62 Respiratory 18 Rate Blood Pressure 171/84 Blood Pressure 174/93 [Left] O2 Sat by Pulse 96 Oximetry General appearance: Present: no acute distress - EENT Eyes: EOM intact ENT: hearing intact - Respiratory Respiratory effort: normal Extremities: abnormal (see subjective) - Gastrointestinal General gastrointestinal: Present: soft, non-tender - Psychiatric Psychiatric: appropriate mood/affect, cooperative - Labs CBC & Chem 7: 07/23/20 04:29 07/23/20 04:29 Labs: Abnormal lab results 07/22/20 07/23/20 07/23/20 Range/Units 13:10 04:29 04:29 RBC 2.78 L (3.65-5.03) M/mm3 Hgb 9.0 L (11.8-15.2) gm/dl Hct 26.3 L (35.5-45.6) % MCV 95 H (84-94) fl MCH 33 H (28-32) pg [place] % (Auto) 7.7 H (0.0-7.3) % Seg Neutrophils % 74.6 H (40.0-70.0) % Seg Neutrophils # 8.1 H (1.8-7.7) K/mm3 Heparin Anti-Xa Level < 0.10 L (0.3-0.7) U.I./ml Potassium 3.1 L (3.6-5.0) mmol/L BUN 8 L (9-20) mg/dL Glucose 133 H (75-100) mg/dL AST 44 H (5-40) units/L ALT 72 H (7-56) units/L Albumin 3.1 L (3.9-5) g/dL Medications & Allergies - Medications Allergies/Adverse Reactions: Allergies Penicillins Allergy (Verified 07/16/20 22:49) Hives Home Medications: Home Medications Medication Instructions Recorded Confirmed Last Taken Type Acetaminophen [Tylenol] 325 mg PO Q6HR 07/17/20 07/17/20 Unknown History Acetaminophen/Codeine [Tylenol 1 tab PO Q4HR PRN 07/17/20 07/17/20 Unknown History /Codeine # 3 tab] AtorvaSTATin [Lipitor] 40 mg PO QHS 07/17/20 07/17/20 Unknown History Azithromycin [Zithromax Z-JENNA] 0 mg PO DAILY 07/17/20 07/17/20 Unknown History Clopidogrel [Plavix] 75 mg PO QDAY 07/17/20 07/17/20 Unknown History Folic Acid [Folvite] 1 mg PO QDAY 07/17/20 07/17/20 Unknown History Furosemide [Lasix TAB] 80 mg PO BID 07/17/20 07/17/20 Unknown History Metoprolol [Lopressor TAB] 50 mg PO BID 07/17/20 07/17/20 Unknown History Spironolactone [Aldactone] 25 mg PO QDAY 07/17/20 07/17/20 Unknown History Thiamine [Vitamin B-1] 100 mg PO QDAY 07/17/20 07/17/20 Unknown History guaiFENesin [Guaifenesin] 400 mg PO Q6HR 07/17/20 07/17/20 Unknown History lisinopriL [Zestril] 20 mg PO QDAY 07/17/20 07/17/20 Unknown History Active Medications: Generic Name Dose Route Start Last Admin Trade Name Freq PRN Reason Stop Dose Admin Acetaminophen 650 mg 07/17/20 00:20 07/22/20 23:25 Tylenol PO 650 mg Q4H PRN Administration Pain MILD(1-3)/Fever >100.5/REYES Hydrocodone Bitart/Acetaminophen 1 each 07/18/20 14:16 07/22/20 23:28 [place] 5/325 PO 1 each Q4H PRN Administration Pain, Moderate (4-6) Aspirin 81 mg 07/19/20 10:00 07/23/20 10:17 Halfprin Ec PO 81 mg QDAY DELFINO Administration Carvedilol 12.5 mg 07/17/20 22:00 07/23/20 10:17 Coreg PO 12.5 mg BID DELFINO Administration Clopidogrel Bisulfate 75 mg 07/19/20 10:00 07/23/20 10:17 Plavix PO 75 mg QDAY DELFINO Administration Docusate Sodium 100 mg 07/22/20 22:00 07/23/20 10:17 Colace PO 100 mg BID DELFINO Administration Hydralazine HCl 10 mg 07/17/20 02:24 07/17/20 06:10 Apresoline IV 10 mg Q6HR PRN Administration Blood Pressure Sodium Chloride 1,000 mls @ 75 mls/hr 07/17/20 00:30 07/19/20 05:30 Nacl 0.9% 1000 Ml IV 75 mls/hr DIRECT DELFINO Administration Clindamycin HCl 900 mg in 50 mls @ 100 mls/hr 07/17/20 14:00 07/23/20 06:30 Cleocin 900 Mg/50 Ml IV 07/27/20 06:29 Infused Q8HR DELFINO Infusion Protocol Heparin Sodium/Sodium Chloride 25,000 unit in 500 mls @ 24 mls/hr 07/18/20 15:00 07/23/20 12:34 Heparin/ 0.45% Nacl-25,000 Unit/500 Ml IV 1,850 units/hr TITR DELFINO 37 mls/hr Administration Protocol 1,200 UNITS/HR Labetalol HCl 10 mg 07/17/20 17:20 07/23/20 13:06 Labetalol IV 10 mg Q3H PRN Administration Blood Pressure Magnesium Hydroxide 30 ml 07/17/20 00:20 Milk Of Magnesia PO Q4H PRN Constipation Morphine Sulfate 2 mg 07/17/20 00:20 07/18/20 01:11 Morphine IV 2 mg Q4H PRN Administration Pain, Moderate (4-6) Ondansetron HCl 4 mg 07/17/20 00:20 Zofran IV Q8H PRN Nausea And Vomiting Pantoprazole Sodium 40 mg 07/19/20 16:00 07/23/20 10:17 Protonix PO 40 mg QDAC DELFINO Administration Pseudoephedrine/Acetam/Chlorphenir 10 ml 07/20/20 18:21 07/23/20 10:27 Robitussin Ac PO 10 ml BID PRN Administration Cough Sodium Chloride 10 ml 07/17/20 10:00 07/23/20 10:18 Sodium Chloride Flush Syringe 10 Ml IV 10 ml BID DELFINO Administration Sodium Chloride 10 ml 07/17/20 00:20 Sodium Chloride Flush Syringe 10 Ml IV PRN PRN LINE FLUSH Trazodone HCl 50 mg 07/19/20 23:45 07/22/20 21:01 Desyrel PO 50 mg QHS DELFINO Administration Valsartan 160 mg 07/17/20 22:00 07/23/20 10:17 Diovan PO 160 mg BID DELFINO Administration
[2020-07-23] MEDS ORDERED: LORazepam 1 MG TAB PO PRN (16:45)
--- NOTE | 2020-07-23 16:54 | Progress Note ---
Assessment and Plan - Patient Problems (1) Cellulitis of foot, left Current Visit: Yes Status: Acute (2) DVT prophylaxis Current Visit: Yes Status: Acute (3) Peripheral vascular disease of lower extremity Current Visit: Yes Status: Acute Subjective Date of service: 07/23/20 Principal diagnosis: LE CLI Objective - Constitutional Vitals: Vital Signs - 12hr 07/23/20 07/23/20 07/23/20 05:36 10:17 12:37 Temperature 98.9 F 98.9 F Pulse Rate 62 62 66 Respiratory 20 20 Rate Blood Pressure 171/84 171/84 210/93 Blood Pressure [Left] O2 Sat by Pulse 97 93 Oximetry 07/23/20 07/23/20 12:57 13:06 Temperature Pulse Rate 72 62 Respiratory 18 Rate Blood Pressure 171/84 Blood Pressure 174/93 [Left] O2 Sat by Pulse 96 Oximetry General appearance: Present: no acute distress, well-nourished - EENT Eyes: PERRL, EOM intact ENT: hearing intact, clear oral mucosa Ears: bilateral: normal - Neck Neck: supple, normal ROM - Respiratory Respiratory effort: normal Respiratory: bilateral: CTA - Breasts Breasts: normal - Cardiovascular Rhythm: regular Heart Sounds: Present: S1 & S2. Absent: gallop, rub Extremities: pulses intact, No edema, normal color, Full ROM - Gastrointestinal General gastrointestinal: Present: soft, non-tender, non-distended, normal bowel sounds - Genitourinary Male genitourinary: normal - Integumentary Integumentary: clear, warm, dry - Musculoskeletal Musculoskeletal: 1, strength equal bilaterally - Neurologic Neurologic: moves all extremities - Psychiatric Psychiatric: memory intact, appropriate mood/affect, intact judgment & insight - Labs CBC & Chem 7: 07/23/20 04:29 07/23/20 04:29 Labs: Abnormal lab results 07/23/20 07/23/20 Range/Units 04:29 04:29 RBC 2.78 L (3.65-5.03) M/mm3 Hgb 9.0 L (11.8-15.2) gm/dl Hct 26.3 L (35.5-45.6) % MCV 95 H (84-94) fl MCH 33 H (28-32) pg [place] % (Auto) 7.7 H (0.0-7.3) % Seg Neutrophils % 74.6 H (40.0-70.0) % Seg Neutrophils # 8.1 H (1.8-7.7) K/mm3 Potassium 3.1 L (3.6-5.0) mmol/L BUN 8 L (9-20) mg/dL Glucose 133 H (75-100) mg/dL AST 44 H (5-40) units/L ALT 72 H (7-56) units/L Albumin 3.1 L (3.9-5) g/dL
[2020-07-23] MEDS: traZODone 50 MG TAB PO SCH (21:03)
[2020-07-24 06:23] LABS: Hematocrit 26.1 % (35.5-45.6); Hemoglobin 8.7 gm/dl (11.8-15.2)
[2020-07-24] MEDS ORDERED: HEPARIN/NS 5000 UNIT/500ML 1,000 ML IR ONE (11:20)
[2020-07-24] MEDS ORDERED: SODIUM CHLORIDE 0.9% 500 ML 500 ML ONE (11:20)
[2020-07-24] MEDS: MIDAZOLAM 2 MG/2 ML INJ ONE ×3 (11:50→13:09)
[2020-07-24] MEDS: LIDOCAINE (2%) 20 MG/1 ML VIAL 20 ML MDV INFILTRATI ONE ×4 (11:50→12:38)
[2020-07-24] MEDS: fentaNYL 100 MCG/2 ML INJ ONE ×3 (11:50→13:09)
[2020-07-24] MEDS ORDERED: hydrALAZINE 20 MG/1 ML INJ ONE (12:06)
[2020-07-24] MEDS: HEPARIN 10,000 UNITS/10 ML VIAL ONE ×2 (12:08→13:13)
[2020-07-24] MEDS ORDERED: WATER FOR INJ Sterile (PF) 10 ML ONE (12:09)
[2020-07-24] MEDS ORDERED: ALTEPLASE 2 MG INJ ONE (12:09)
[2020-07-24] MEDS ORDERED: NITROGLYCERIN SYRINGE 6 ML ONE (13:53)
[2020-07-24] MEDS ORDERED: HYDROcodone/ACETAMINOPHEN 5-325 MG TAB PO PRN (14:36)
--- NOTE | 2020-07-24 15:11 | Operative Report ---
Operative Report Operative Report: Date of Procedure: 07/24/2020 Pre-operative Diagnosis: Peripheral Vascular Disease with Left Lower Extremity G ruben Post-operative Diagnosis: Same Procedure(s): 1. Ultrasound-Guided Access Right Common Femoral Artery 2. Diagnostic Left Lower Extremity Angiogram (The Patient Had a Clinical Change) 3. Percutaneous Pharmacomechanical Thrombectomy of Left Posterior Tibial Artery with 6 mg of TPA and Catheter Directed Aspiration of Thrombus 4. Angioplasty of Left Anterior Tibial Artery with 2.5 x 220 Guthrie Balloon and 3.0 x 100 Angiosculpt Balloon 5. Closure of Right Femoral Arteriotomy with 6 Norwegian Angio-Seal 6. Radiologic Supervision with Interpretation 7. Monitored Moderate Sedation (Total Anesthesia Time: 136 Minutes) Surgeon: Moe Holland M.D. Stewarding Supervisor: Monique Anesthesia: Local/Monitored Moderate Sedation Total Anesthesia Time: 136 Minutes EBL: Minimal Counts: Correct Complications: None Condition: Stable Specimen: None Indication: The patient is a 64 year old male with a history of peripheral vascular disease that underwent endovascular intervention for left foot gangrene. Postoperatively he initially did well however he began to display signs of demarcation of his left foot and noninvasive studies revealed possible occlusion of his previously open posterior tibial artery. He is in need of a diagnostic angiogram to evaluate the arterial anatomy of his left lower extremity. He was given the risk, benefits, and alternative procedures and consented to the procedure. Angiogram Findings: The diagnostic left lower extremity angiogram revealed that the left common femoral, SFA, and popliteal artery were patent without evidence of flow-limiting stenosis. The peroneal artery was occluded throughout its course. The anterior tibial artery was occluded throughout its course. The posterior tibial artery including previously placed stents was patent to the mid calf and that portion of the artery remained patent throughout collateral vessels which appeared to provide some flow into the foot. There was some evidence of thrombus within the proximal and mid posterior tibial artery. The distal artery was occluded. After intervention the proximal mid posterior tibial artery was patent with minimal residual thrombus. The anterior tibial artery was patent with 20 to 30% residual stenosis. It flowed into the dorsalis pedis artery which had evidence of extravasation in the foot secondary to an attempt to gain retrograde access. The dorsalis pedis artery did provide collateral flow to the remainder of the foot. Description of Procedure: The patient was brought to the Certified Master Safe Technician and laid in supine position. After timeout was performed the patient's right groin and left foot were prepped and draped in normal sterile fashion. Ultrasound was used to identify the right common femoral artery and confirm patency. Once patency was confirmed the overlying skin and soft tissue was anesthetized with lidocaine. An 11 blade was used to make a small stab incision and a curved hemostat was used to bluntly dissect down to the anterior surface of the right common femoral artery under ultrasound guidance. A 21-gauge micropuncture needle was used with ultrasound guidance seen in the right common femoral artery and a 0.018 micropuncture wire was advanced into the artery. The needle was removed and a micropuncture sheath was placed by Seldinger technique. The inner dilator and wire were removed and a 0.035 Bentson wire was advanced into the aorta. The micropuncture sheath was then removed and a 5 Norwegian sheath was placed by Seldinger technique. An Omni Flush catheter and Bentson wire were advanced up and over the bifurcation and a left lower extremity angiogram was performed with the previously described findings. The Bentson wire was advanced into the posterior tibial artery and the 5 Norwegian sheath was exchanged for a 7 Norwegian 45 cm destination sheath by Seldinger technique. At this point the patient was systemically heparinized with 6000 units of heparin IV and this was redosed with 1000 units every 45 minutes into the completion of the case. I advanced a Navicross catheter into the posterior tibial artery and made attempts to cross the occluded distal artery into the foot without success. I then injected 6 mg of TPA into the artery and used a Navicross catheter to aspirate thrombus from the proximal mid artery. This resulted in a patent artery with minimal residual thrombus which continues to flow through collaterals in the mid calf. I made multiple attempts to gain retrograde access, using ultrasound guidance, to the distal posterior tibial artery and dorsalis pedis artery without success. I then used the Navicross catheter and a 0.014 Choice PT wire to cannulate the proximal anterior tibial artery and was able to advance the catheter and wire into the mid anterior tibial artery at the level of occlusion where the artery joined a collateral branch. I exchanged the Navicross catheter for a 0.018 [place] catheter and was able to advance the catheter with a 0.018 Gladius Wire which I was able to advance across the occluded anterior tibial artery and into the dorsalis pedis artery which was confirmed by angiogram. I reinserted the Choice PT wire and performed angioplasty of the anterior tibial artery using a 2.5 x 220 Guthrie Balloon this resulted in approximately 50% residual stenosis. I then used a 3.0 x 100 Angiosculpt Balloon to perform angioplasty of the anterior tibial artery resulted approximately 20 to 30% residual stenosis throughout the artery. I used a 2.5 x 120 Nanocross Balloon to perform angioplasty of the transition of the anterior tibial artery into the dorsalis pedis artery which resulted in less than 15% residual stenosis however there was extravasation of contrast from the dorsalis pedis artery which appeared to be the area that I had previously attempted access in retrograde fashion in the dorsalis pedis artery. At this point I removed the Choice PT wire and pulled my sheath into the right external iliac artery. I then advanced a Crocodile Goldson wire into the aorta and remove the sheath and used a 6 Norwegian Angio-Seal to close my right femoral arteriotomy. A sterile dressing was then applied to the entry site and the patient was transported to the recovery area in stable condition.
[2020-07-24] MEDS: ASPIRIN EC 81 MG TAB PO SCH (16:27)
[2020-07-24] MEDS: PANTOPRAZOLE 40 MG TAB PO SCH (16:27)
[2020-07-24] MEDS: CLOPIDOGREL 75 MG TAB PO SCH (16:27)
[2020-07-24] MEDS: VALSARTAN 160MG TAB PO SCH ×2 (16:27→22:10)
[2020-07-24] MEDS: DOCUSATE SODIUM 100 MG CAP PO SCH ×2 (16:27→22:11)
[2020-07-24] MEDS: carvediloL 12.5 MG TAB PO SCH ×2 (16:27→22:10)
[2020-07-24] MEDS: traZODone 50 MG TAB PO SCH (22:09)
[2020-07-24] MEDS: guaiFENesin/CODEINE 100-10MG ORAL LIQD 5 ML PO PRN (22:14)
--- NOTE | 2020-07-24 23:55 | Progress Note ---
Assessment and Plan - Patient Problems (1) Cellulitis of foot, left Current Visit: Yes Status: Acute (2) DVT prophylaxis Current Visit: Yes Status: Acute (3) Peripheral vascular disease of lower extremity Current Visit: Yes Status: Acute Subjective Date of service: 07/24/20 Principal diagnosis: LE CLI Objective - Constitutional Vitals: Vital Signs - 12hr 07/24/20 07/24/20 07/24/20 17:16 21:53 22:10 Temperature 97.4 F L 98.7 F Pulse Rate 83 82 82 Respiratory 17 20 Rate Blood Pressure 149/54 168/66 168/66 O2 Sat by Pulse 96 96 Oximetry General appearance: Present: no acute distress, well-nourished - EENT Eyes: PERRL, EOM intact ENT: hearing intact, clear oral mucosa Ears: bilateral: normal - Neck Neck: supple, normal ROM - Respiratory Respiratory effort: normal Respiratory: bilateral: CTA - Breasts Breasts: normal - Cardiovascular Rhythm: regular Heart Sounds: Present: S1 & S2. Absent: gallop, rub Extremities: pulses intact, No edema, normal color, Full ROM - Gastrointestinal General gastrointestinal: Present: soft, non-tender, non-distended, normal bowel sounds - Genitourinary Male genitourinary: normal - Integumentary Integumentary: clear, warm, dry - Musculoskeletal Musculoskeletal: 1, strength equal bilaterally - Neurologic Neurologic: moves all extremities - Psychiatric Psychiatric: memory intact, appropriate mood/affect, intact judgment & insight - Labs CBC & Chem 7: 07/24/20 05:05 07/23/20 04:29 Labs: Abnormal lab results 07/24/20 07/24/20 Range/Units 05:05 19:49 Hgb 8.7 L (11.8-15.2) gm/dl Hct 26.1 L (35.5-45.6) % Heparin Anti-Xa Level 0.15 L (0.3-0.7) U.I./ml
[2020-07-25] MEDS: MORPHINE 2 MG/1 ML INJ IV PRN ×2 (01:40→09:16)
[2020-07-25] MEDS: HEPARIN/ 0.45% NACL DRIP 25,000 UNIT/500 ML BAG IV SCH (06:52)
[2020-07-25] MEDS: DOCUSATE SODIUM 100 MG CAP PO SCH ×2 (09:17→22:44)
[2020-07-25] MEDS: ASPIRIN EC 81 MG TAB PO SCH (09:17)
[2020-07-25] MEDS: CLOPIDOGREL 75 MG TAB PO SCH (09:17)
[2020-07-25] MEDS: VALSARTAN 160MG TAB PO SCH (09:17)
[2020-07-25] MEDS: PANTOPRAZOLE 40 MG TAB PO SCH (09:17)
[2020-07-25] MEDS: carvediloL 12.5 MG TAB PO SCH ×2 (09:17→22:00)
--- NOTE | 2020-07-25 14:50 | Progress Note ---
Assessment and Plan The patient is status post left lower extremity revascularization with angioplasty of the anterior tibial artery. His left foot has evidence of improved arterial flow. We will DC the heparin drip and start the patient on Pletal, Plavix, and Eliquis 2.5 mg p.o. twice daily. I will continue to watch his foot and then determine whether he requires a transmetatarsal amputation versus debridement of his wound. I discussed this with the patient who expressed understanding and agrees with the plan. Subjective Date of service: 07/25/20 Principal diagnosis: LE CLI Interval history: The patient states his left foot feels much better. He has occasional shooting pain in the left foot and states he would prefer oral narcotics over the morphine. He has no additional complaints at this time. Objective - Constitutional Vitals: Vital Signs - 12hr 07/25/20 04:39 Temperature 97.5 F L Pulse Rate 66 Respiratory 18 Rate Blood Pressure 132/56 O2 Sat by Pulse 96 Oximetry General appearance: Present: no acute distress - Cardiovascular Rhythm: regular Extremities: normal temperature, abnormal (Left foot eschar is stable.) Extremity abnormal: cyanosis (The cyanosis of his left fourth and fifth toes has completely resolved. He has patchy resolution of the cyanosis of his first through third toes. The toes remain numb with retained motor.), other (Right groin is soft without evidence of hematoma) - Gastrointestinal General gastrointestinal: Present: soft, non-tender, tender - Labs CBC & Chem 7: 07/24/20 05:05 07/23/20 04:29 Labs: Abnormal lab results 07/24/20 07/25/20 07/25/20 Range/Units 19:49 05:31 12:41 Heparin Anti-Xa Level 0.15 L 0.10 L 0.12 L (0.3-0.7) U.I./ml Medications & Allergies - Medications Allergies/Adverse Reactions: Allergies Penicillins Allergy (Verified 07/16/20 22:49) Hives Home Medications: Home Medications Medication Instructions Recorded Confirmed Last Taken Type Acetaminophen [Tylenol] 325 mg PO Q6HR 07/17/20 07/17/20 Unknown History Acetaminophen/Codeine [Tylenol 1 tab PO Q4HR PRN 07/17/20 07/17/20 Unknown History /Codeine # 3 tab] AtorvaSTATin [Lipitor] 40 mg PO QHS 07/17/20 07/17/20 Unknown History Azithromycin [Zithromax Z-JENNA] 0 mg PO DAILY 07/17/20 07/17/20 Unknown History Clopidogrel [Plavix] 75 mg PO QDAY 07/17/20 07/17/20 Unknown History Folic Acid [Folvite] 1 mg PO QDAY 07/17/20 07/17/20 Unknown History Furosemide [Lasix TAB] 80 mg PO BID 07/17/20 07/17/20 Unknown History Metoprolol [Lopressor TAB] 50 mg PO BID 07/17/20 07/17/20 Unknown History Spironolactone [Aldactone] 25 mg PO QDAY 07/17/20 07/17/20 Unknown History Thiamine [Vitamin B-1] 100 mg PO QDAY 07/17/20 07/17/20 Unknown History guaiFENesin [Guaifenesin] 400 mg PO Q6HR 07/17/20 07/17/20 Unknown History lisinopriL [Zestril] 20 mg PO QDAY 07/17/20 07/17/20 Unknown History Active Medications: Generic Name Dose Route Start Last Admin Trade Name Freq PRN Reason Stop Dose Admin Acetaminophen 650 mg 07/17/20 00:20 07/22/20 23:25 Tylenol PO 650 mg Q4H PRN Administration Pain MILD(1-3)/Fever >100.5/REYES Hydrocodone Bitart/Acetaminophen 1 each 07/24/20 14:36 [place] 5/325 PO Q4H PRN Pain, Moderate (4-6) Aspirin 81 mg 07/19/20 10:00 07/25/20 09:17 Halfprin Ec PO 81 mg QDAY DELFINO Administration Atorvastatin Calcium 40 mg 07/24/20 22:00 07/24/20 22:09 Lipitor PO 40 mg QHS DELFINO Administration Carvedilol 12.5 mg 07/17/20 22:00 07/25/20 09:17 Coreg PO 12.5 mg BID DELFINO Administration Clopidogrel Bisulfate 75 mg 07/19/20 10:00 07/25/20 09:17 Plavix PO 75 mg QDAY DELFINO Administration Docusate Sodium 100 mg 07/22/20 22:00 07/25/20 09:17 Colace PO 100 mg BID DELFINO Administration Hydralazine HCl 10 mg 07/17/20 02:24 07/17/20 06:10 Apresoline IV 10 mg Q6HR PRN Administration Blood Pressure Sodium Chloride 1,000 mls @ 75 mls/hr 07/17/20 00:30 07/19/20 05:30 Nacl 0.9% 1000 Ml IV 75 mls/hr DIRECT DELFINO Administration Clindamycin HCl 900 mg in 50 mls @ 100 mls/hr 07/17/20 14:00 07/25/20 05:19 Cleocin 900 Mg/50 Ml IV 07/27/20 06:29 100 mls/hr Q8HR DELFINO Administration Protocol Heparin Sodium/Sodium Chloride 25,000 unit in 500 mls @ 24 mls/hr 07/18/20 15:00 07/25/20 06:54 Heparin/ 0.45% Nacl-25,000 Unit/500 Ml IV 2,100 units/hr TITR DELFINO 42 mls/hr Titration Protocol 1,200 UNITS/HR Labetalol HCl 10 mg 07/17/20 17:20 07/23/20 13:06 Labetalol IV 10 mg Q3H PRN Administration Blood Pressure Lorazepam 1 mg 07/23/20 16:45 Ativan PO QHS PRN Sleep Magnesium Hydroxide 30 ml 07/17/20 00:20 Milk Of Magnesia PO Q4H PRN Constipation Morphine Sulfate 2 mg 07/17/20 00:20 07/25/20 09:16 Morphine IV 2 mg Q4H PRN Administration Pain, Moderate (4-6) Ondansetron HCl 4 mg 07/17/20 00:20 Zofran IV Q8H PRN Nausea And Vomiting Pantoprazole Sodium 40 mg 07/19/20 16:00 07/25/20 09:17 Protonix PO 40 mg QDAC DELFINO Administration Pseudoephedrine/Acetam/Chlorphenir 10 ml 07/20/20 18:21 07/24/20 22:14 Robitussin Ac PO 10 ml BID PRN Administration Cough Sodium Chloride 10 ml 07/17/20 10:00 07/25/20 09:20 Sodium Chloride Flush Syringe 10 Ml IV 10 ml BID DELFINO Administration Sodium Chloride 10 ml 07/17/20 00:20 Sodium Chloride Flush Syringe 10 Ml IV PRN PRN LINE FLUSH Trazodone HCl 50 mg 07/19/20 23:45 07/24/20 22:09 Desyrel PO 50 mg QHS DELFINO Administration Valsartan 160 mg 07/17/20 22:00 07/25/20 09:17 Diovan PO 160 mg BID DELFINO Administration
[2020-07-25] MEDS: oxyCODONE /ACETAMINOPHEN 5-325MG TAB PO PRN (18:30)
--- NOTE | 2020-07-25 22:41 | Progress Note ---
Assessment and Plan - Patient Problems (1) Cellulitis of foot, left Current Visit: Yes Status: Acute (2) DVT prophylaxis Current Visit: Yes Status: Acute (3) Peripheral vascular disease of lower extremity Current Visit: Yes Status: Acute Subjective Date of service: 07/25/20 Principal diagnosis: LE CLI Objective - Constitutional Vitals: Vital Signs - 12hr 07/25/20 15:21 Temperature 98.3 F Pulse Rate 72 Respiratory 22 Rate Blood Pressure 138/53 O2 Sat by Pulse 97 Oximetry General appearance: Present: no acute distress, well-nourished - EENT Eyes: PERRL, EOM intact ENT: hearing intact, clear oral mucosa Ears: bilateral: normal - Neck Neck: supple, normal ROM - Respiratory Respiratory effort: normal Respiratory: bilateral: CTA - Breasts Breasts: normal - Cardiovascular Rhythm: regular Heart Sounds: Present: S1 & S2. Absent: gallop, rub Extremities: pulses intact, No edema, normal color, Full ROM - Gastrointestinal General gastrointestinal: Present: soft, non-tender, non-distended, normal bowel sounds - Genitourinary Male genitourinary: normal - Integumentary Integumentary: clear, warm, dry - Musculoskeletal Musculoskeletal: 1, strength equal bilaterally - Neurologic Neurologic: moves all extremities - Psychiatric Psychiatric: memory intact, appropriate mood/affect, intact judgment & insight - Labs CBC & Chem 7: 07/24/20 05:05 07/23/20 04:29 Labs: Abnormal lab results 07/25/20 07/25/20 Range/Units 05:31 12:41 Heparin Anti-Xa Level 0.10 L 0.12 L (0.3-0.7) U.I./ml
[2020-07-25] MEDS: APIXABAN 2.5 MG TAB PO SCH (22:44)
[2020-07-25] MEDS: CILOSTAZOL 100 MG TAB PO SCH (22:55)
[2020-07-25] MEDS: traZODone 50 MG TAB PO SCH (22:55)
[2020-07-26] MEDS: VALSARTAN 160MG TAB PO SCH ×3 (00:03→21:29)
[2020-07-26] MEDS: guaiFENesin/CODEINE 100-10MG ORAL LIQD 5 ML PO PRN (06:36)
[2020-07-26] MEDS: CILOSTAZOL 100 MG TAB PO SCH ×2 (10:37→21:29)
[2020-07-26] MEDS: carvediloL 12.5 MG TAB PO SCH ×2 (10:39→21:29)
[2020-07-26] MEDS: DOCUSATE SODIUM 100 MG CAP PO SCH ×2 (10:39→21:29)
[2020-07-26] MEDS: APIXABAN 2.5 MG TAB PO SCH ×2 (10:39→21:55)
[2020-07-26] MEDS: PANTOPRAZOLE 40 MG TAB PO SCH (10:40)
[2020-07-26] MEDS: CLOPIDOGREL 75 MG TAB PO SCH (10:40)
--- NOTE | 2020-07-26 11:13 | Progress Note ---
Assessment and Plan Patient doing well following revascularization procedure. Ultimately, he will require more definitive treatment to his left foot but is currently deciding as to which direction to proceed. Patient will need to be evaluated by physical th laura. Subjective Date of service: 07/26/20 Principal diagnosis: LE CLI Interval history: Patient with a history of left lower extremity peripheral vascular disease status post revascularization. Patient states that his leg and foot feel much better following his procedure. Has not yet decided whether or not to undergo debridement versus amputation. Patient has not yet been out of bed. Objective - Constitutional Vitals: Vital Signs - 12hr 07/25/20 07/26/20 07/26/20 23:13 00:03 06:08 Temperature 98.7 F 98.3 F Pulse Rate 78 78 68 Respiratory 20 20 Rate Blood Pressure 161/68 161/68 136/52 O2 Sat by Pulse 96 94 Oximetry General appearance: Present: no acute distress - EENT Eyes: EOM intact ENT: hearing intact - Neck Neck: supple, normal ROM - Respiratory Respiratory effort: normal Extremities: abnormal - Gastrointestinal General gastrointestinal: Present: deferred - Genitourinary Male genitourinary: deferred - Psychiatric Psychiatric: appropriate mood/affect, cooperative - Labs CBC & Chem 7: 07/24/20 05:05 07/23/20 04:29 Labs: Abnormal lab results 07/25/20 Range/Units 12:41 Heparin Anti-Xa Level 0.12 L (0.3-0.7) U.I./ml Medications & Allergies - Medications Allergies/Adverse Reactions: Allergies Penicillins Allergy (Verified 07/16/20 22:49) Hives Home Medications: Home Medications Medication Instructions Recorded Confirmed Last Taken Type Acetaminophen [Tylenol] 325 mg PO Q6HR 07/17/20 07/17/20 Unknown History Acetaminophen/Codeine [Tylenol 1 tab PO Q4HR PRN 07/17/20 07/17/20 Unknown History /Codeine # 3 tab] AtorvaSTATin [Lipitor] 40 mg PO QHS 07/17/20 07/17/20 Unknown History Azithromycin [Zithromax Z-JENNA] 0 mg PO DAILY 07/17/20 07/17/20 Unknown History Clopidogrel [Plavix] 75 mg PO QDAY 07/17/20 07/17/20 Unknown History Folic Acid [Folvite] 1 mg PO QDAY 07/17/20 07/17/20 Unknown History Furosemide [Lasix TAB] 80 mg PO BID 07/17/20 07/17/20 Unknown History Metoprolol [Lopressor TAB] 50 mg PO BID 07/17/20 07/17/20 Unknown History Spironolactone [Aldactone] 25 mg PO QDAY 07/17/20 07/17/20 Unknown History Thiamine [Vitamin B-1] 100 mg PO QDAY 07/17/20 07/17/20 Unknown History guaiFENesin [Guaifenesin] 400 mg PO Q6HR 07/17/20 07/17/20 Unknown History lisinopriL [Zestril] 20 mg PO QDAY 07/17/20 07/17/20 Unknown History Active Medications: Generic Name Dose Route Start Last Admin Trade Name Freq PRN Reason Stop Dose Admin Acetaminophen 650 mg 07/17/20 00:20 07/22/20 23:25 Tylenol PO 650 mg Q4H PRN Administration Pain MILD(1-3)/Fever >100.5/REYES Apixaban 2.5 mg 07/25/20 22:00 07/26/20 10:39 Eliquis PO 2.5 mg Q12HR DELFINO Administration Protocol Atorvastatin Calcium 40 mg 07/24/20 22:00 07/25/20 22:44 Lipitor PO 40 mg QHS DELFINO Administration Carvedilol 12.5 mg 07/17/20 22:00 07/26/20 10:39 Coreg PO 12.5 mg BID DELFINO Administration Cilostazol 100 mg 07/25/20 22:00 07/26/20 10:37 Pletal PO 100 mg BID DELFINO Administration Clopidogrel Bisulfate 75 mg 07/19/20 10:00 07/26/20 10:40 Plavix PO 75 mg QDAY DELFINO Administration Docusate Sodium 100 mg 07/22/20 22:00 07/26/20 10:39 Colace PO 100 mg BID DELFINO Administration Hydralazine HCl 10 mg 07/17/20 02:24 07/17/20 06:10 Apresoline IV 10 mg Q6HR PRN Administration Blood Pressure Sodium Chloride 1,000 mls @ 75 mls/hr 07/17/20 00:30 07/19/20 05:30 Nacl 0.9% 1000 Ml IV 75 mls/hr DIRECT DELFINO Administration Clindamycin HCl 900 mg in 50 mls @ 100 mls/hr 07/17/20 14:00 07/26/20 05:44 Cleocin 900 Mg/50 Ml IV 07/27/20 06:29 50 mls/hr Q8HR DELFINO Administration Protocol Labetalol HCl 10 mg 07/17/20 17:20 07/23/20 13:06 Labetalol IV 10 mg Q3H PRN Administration Blood Pressure Lorazepam 1 mg 07/23/20 16:45 Ativan PO QHS PRN Sleep Magnesium Hydroxide 30 ml 07/17/20 00:20 Milk Of Magnesia PO Q4H PRN Constipation Morphine Sulfate 2 mg 07/17/20 00:20 07/25/20 09:16 Morphine IV 2 mg Q4H PRN Administration Pain, Moderate (4-6) Ondansetron HCl 4 mg 07/17/20 00:20 Zofran IV Q8H PRN Nausea And Vomiting Oxycodone/Acetaminophen 1 tab 07/25/20 14:53 07/25/20 18:30 Percocet 5/325 PO 1 tab Q4H PRN Administration Pain, Moderate (4-6) Pantoprazole Sodium 40 mg 07/19/20 16:00 07/26/20 10:40 Protonix PO 40 mg QDAC DELFINO Administration Pseudoephedrine/Acetam/Chlorphenir 10 ml 07/20/20 18:21 07/26/20 06:36 Robitussin Ac PO 10 ml BID PRN Administration Cough Sodium Chloride 10 ml 07/17/20 10:00 07/25/20 22:57 Sodium Chloride Flush Syringe 10 Ml IV 10 ml BID DELFINO Administration Sodium Chloride 10 ml 07/17/20 00:20 Sodium Chloride Flush Syringe 10 Ml IV PRN PRN LINE FLUSH Trazodone HCl 50 mg 07/19/20 23:45 07/25/20 22:55 Desyrel PO 50 mg QHS DELFINO Administration Valsartan 160 mg 07/17/20 22:00 07/26/20 10:39 Diovan PO 160 mg BID DELFINO Administration
[2020-07-26] MEDS: oxyCODONE /ACETAMINOPHEN 5-325MG TAB PO PRN (21:36)
[2020-07-26] MEDS: traZODone 50 MG TAB PO SCH (21:36)
[2020-07-27] MEDS: guaiFENesin/CODEINE 100-10MG ORAL LIQD 5 ML PO PRN (01:57)
[2020-07-27] MEDS: PANTOPRAZOLE 40 MG TAB PO SCH (08:00)
--- NOTE | 2020-07-27 08:04 | Progress Note ---
Assessment and Plan - Patient Problems (1) Cellulitis of foot, left Current Visit: Yes Status: Acute (2) DVT prophylaxis Current Visit: Yes Status: Acute (3) Peripheral vascular disease of lower extremity Current Visit: Yes Status: Acute Subjective Date of service: 07/26/20 Principal diagnosis: LE CLI Objective - Constitutional Vitals: Vital Signs - 12hr 07/27/20 07/27/20 07/27/20 00:04 00:14 06:11 Temperature 99.6 F 99.6 F 99.3 F Pulse Rate 68 72 64 Respiratory 20 20 20 Rate Blood Pressure 107/47 123/54 O2 Sat by Pulse 96 94 98 Oximetry General appearance: Present: no acute distress, well-nourished - EENT Eyes: PERRL, EOM intact ENT: hearing intact, clear oral mucosa Ears: bilateral: normal - Neck Neck: supple, normal ROM - Respiratory Respiratory effort: normal Respiratory: bilateral: CTA - Breasts Breasts: normal - Cardiovascular Rhythm: regular Heart Sounds: Present: S1 & S2. Absent: gallop, rub Extremities: pulses intact, No edema, normal color, Full ROM - Gastrointestinal General gastrointestinal: Present: soft, non-tender, non-distended, normal bowel sounds - Genitourinary Male genitourinary: normal - Integumentary Integumentary: clear, warm, dry - Musculoskeletal Musculoskeletal: 1, strength equal bilaterally - Neurologic Neurologic: moves all extremities - Psychiatric Psychiatric: memory intact, appropriate mood/affect, intact judgment & insight - Labs CBC & Chem 7: 07/24/20 05:05 07/23/20 04:29
[2020-07-27] MEDS: DOCUSATE SODIUM 100 MG CAP PO SCH ×2 (11:02→21:15)
[2020-07-27] MEDS: VALSARTAN 160MG TAB PO SCH ×2 (11:02→21:15)
[2020-07-27] MEDS: CLOPIDOGREL 75 MG TAB PO SCH (11:03)
[2020-07-27] MEDS: CILOSTAZOL 100 MG TAB PO SCH ×2 (11:03→21:14)
[2020-07-27] MEDS: APIXABAN 2.5 MG TAB PO SCH ×2 (11:03→21:14)
[2020-07-27] MEDS: carvediloL 12.5 MG TAB PO SCH ×2 (11:03→21:15)
[2020-07-27] MEDS: MORPHINE 2 MG/1 ML INJ IV PRN (12:03)
--- NOTE | 2020-07-27 17:36 | Progress Note ---
Assessment and Plan The patient has a well-perfused left foot with an eschar on the dorsum of the foot and ischemia of the toes. Believe the patient would benefit from a left TMA. It may require a portion of the TMA to be left open on the medial aspect with wound VAC placement. I discussed this with the patient who expressed understanding and agrees with the plan. We will proceed with the operation on Thursday. Have scheduled with the OR and plan for 1:30. Subjective Date of service: 07/27/20 Principal diagnosis: LE CLI Interval history: Patient states his left foot feels good. He has no additional complaints at this time. Objective - Constitutional Vitals: Vital Signs - 12hr 07/27/20 07/27/20 07/27/20 06:11 10:00 11:01 Temperature 99.3 F Pulse Rate 64 78 Pulse Rate [ 64 Apical] Pulse Rate [ 64 Left Radial] Pulse Rate [ 64 Right Radial] Respiratory 20 19 Rate Blood Pressure 123/54 144/62 O2 Sat by Pulse 98 97 Oximetry 07/27/20 07/27/20 07/27/20 11:02 11:03 11:44 Temperature 98.5 F Pulse Rate 77 77 72 Pulse Rate [ Apical] Pulse Rate [ Left Radial] Pulse Rate [ Right Radial] Respiratory 20 Rate Blood Pressure 144/62 144/62 172/70 O2 Sat by Pulse 97 Oximetry General appearance: Present: no acute distress Extremities: normal temperature (Left foot warm) Extremity abnormal: cyanosis (Cyanosis of left toes), black (Eschar on dorsum of left foot is stable) - Labs CBC & Chem 7: 07/24/20 05:05 07/23/20 04:29 Medications & Allergies - Medications Allergies/Adverse Reactions: Allergies Penicillins Allergy (Verified 07/16/20 22:49) Hives Home Medications: Home Medications Medication Instructions Recorded Confirmed Last Taken Type Acetaminophen [Tylenol] 325 mg PO Q6HR 07/17/20 07/17/20 Unknown History Acetaminophen/Codeine [Tylenol 1 tab PO Q4HR PRN 07/17/20 07/17/20 Unknown History /Codeine # 3 tab] AtorvaSTATin [Lipitor] 40 mg PO QHS 07/17/20 07/17/20 Unknown History Azithromycin [Zithromax Z-JENNA] 0 mg PO DAILY 07/17/20 07/17/20 Unknown History Clopidogrel [Plavix] 75 mg PO QDAY 07/17/20 07/17/20 Unknown History Folic Acid [Folvite] 1 mg PO QDAY 07/17/20 07/17/20 Unknown History Furosemide [Lasix TAB] 80 mg PO BID 07/17/20 07/17/20 Unknown History Metoprolol [Lopressor TAB] 50 mg PO BID 07/17/20 07/17/20 Unknown History Spironolactone [Aldactone] 25 mg PO QDAY 07/17/20 07/17/20 Unknown History Thiamine [Vitamin B-1] 100 mg PO QDAY 07/17/20 07/17/20 Unknown History guaiFENesin [Guaifenesin] 400 mg PO Q6HR 07/17/20 07/17/20 Unknown History lisinopriL [Zestril] 20 mg PO QDAY 07/17/20 07/17/20 Unknown History Active Medications: Generic Name Dose Route Start Last Admin Trade Name Freq PRN Reason Stop Dose Admin Acetaminophen 650 mg 07/17/20 00:20 07/22/20 23:25 Tylenol PO 650 mg Q4H PRN Administration Pain MILD(1-3)/Fever >100.5/REYES Apixaban 2.5 mg 07/25/20 22:00 07/27/20 11:03 Eliquis PO 2.5 mg Q12HR DELFINO Administration Protocol Atorvastatin Calcium 40 mg 07/24/20 22:00 07/26/20 21:36 Lipitor PO 40 mg QHS DELFINO Administration Carvedilol 12.5 mg 07/17/20 22:00 07/27/20 11:03 Coreg PO 12.5 mg BID DELFINO Administration Cilostazol 100 mg 07/25/20 22:00 07/27/20 11:03 Pletal PO 100 mg BID DELFINO Administration Clopidogrel Bisulfate 75 mg 07/19/20 10:00 07/27/20 11:03 Plavix PO 75 mg QDAY DELFINO Administration Docusate Sodium 100 mg 07/22/20 22:00 07/27/20 11:02 Colace PO 100 mg BID DELFINO Administration Hydralazine HCl 10 mg 07/17/20 02:24 07/17/20 06:10 Apresoline IV 10 mg Q6HR PRN Administration Blood Pressure Sodium Chloride 1,000 mls @ 75 mls/hr 07/17/20 00:30 07/19/20 05:30 Nacl 0.9% 1000 Ml IV 75 mls/hr DIRECT DELFINO Administration Labetalol HCl 10 mg 07/17/20 17:20 07/23/20 13:06 Labetalol IV 10 mg Q3H PRN Administration Blood Pressure Lorazepam 1 mg 07/23/20 16:45 Ativan PO QHS PRN Sleep Magnesium Hydroxide 30 ml 07/17/20 00:20 Milk Of Magnesia PO Q4H PRN Constipation Morphine Sulfate 2 mg 07/17/20 00:20 07/27/20 12:03 Morphine IV 2 mg Q4H PRN Administration Pain, Moderate (4-6) Ondansetron HCl 4 mg 07/17/20 00:20 Zofran IV Q8H PRN Nausea And Vomiting Oxycodone/Acetaminophen 1 tab 07/25/20 14:53 07/26/20 21:36 Percocet 5/325 PO 1 tab Q4H PRN Administration Pain, Moderate (4-6) Pantoprazole Sodium 40 mg 07/19/20 16:00 07/27/20 08:00 Protonix PO 40 mg QDAC DELFINO Administration Pseudoephedrine/Acetam/Chlorphenir 10 ml 07/20/20 18:21 07/27/20 01:57 Robitussin Ac PO 10 ml BID PRN Administration Cough Sodium Chloride 10 ml 07/17/20 10:00 07/27/20 11:04 Sodium Chloride Flush Syringe 10 Ml IV 10 ml BID DELFINO Administration Sodium Chloride 10 ml 07/17/20 00:20 Sodium Chloride Flush Syringe 10 Ml IV PRN PRN LINE FLUSH Trazodone HCl 50 mg 07/19/20 23:45 07/26/20 21:36 Desyrel PO 50 mg QHS DELFINO Administration Valsartan 160 mg 07/17/20 22:00 07/27/20 11:02 Diovan PO 160 mg BID DELFINO Administration
--- NOTE | 2020-07-27 18:59 | Progress Note ---
Assessment and Plan - Patient Problems (1) Cellulitis of foot, left Current Visit: Yes Status: Acute (2) DVT prophylaxis Current Visit: Yes Status: Acute (3) Peripheral vascular disease of lower extremity Current Visit: Yes Status: Acute Subjective Date of service: 07/27/20 Principal diagnosis: LE CLI Objective - Constitutional Vitals: Vital Signs - 12hr 07/27/20 07/27/20 07/27/20 10:00 11:01 11:02 Temperature Pulse Rate 78 77 Pulse Rate [ 64 Apical] Pulse Rate [ 64 Left Radial] Pulse Rate [ 64 Right Radial] Respiratory 19 Rate Blood Pressure 144/62 144/62 O2 Sat by Pulse 97 Oximetry 07/27/20 07/27/20 07/27/20 11:03 11:44 17:12 Temperature 98.5 F 99.5 F Pulse Rate 77 72 85 Pulse Rate [ Apical] Pulse Rate [ Left Radial] Pulse Rate [ Right Radial] Respiratory 20 18 Rate Blood Pressure 144/62 172/70 145/50 O2 Sat by Pulse 97 96 Oximetry General appearance: Present: no acute distress, well-nourished - EENT Eyes: PERRL, EOM intact ENT: hearing intact, clear oral mucosa Ears: bilateral: normal - Neck Neck: supple, normal ROM - Respiratory Respiratory effort: normal Respiratory: bilateral: CTA - Breasts Breasts: normal - Cardiovascular Rhythm: regular Heart Sounds: Present: S1 & S2. Absent: gallop, rub Extremities: pulses intact, No edema, normal color, Full ROM - Gastrointestinal General gastrointestinal: Present: soft, non-tender, non-distended, normal bowel sounds - Genitourinary Male genitourinary: normal - Integumentary Integumentary: clear, warm, dry - Musculoskeletal Musculoskeletal: 1, strength equal bilaterally - Neurologic Neurologic: moves all extremities - Psychiatric Psychiatric: memory intact, appropriate mood/affect, intact judgment & insight - Labs CBC & Chem 7: 07/24/20 05:05 07/23/20 04:29
[2020-07-27] MEDS: traZODone 50 MG TAB PO SCH (21:16)
[2020-07-28] MEDS: DOCUSATE SODIUM 100 MG CAP PO SCH ×2 (11:00→23:35)
[2020-07-28] MEDS: APIXABAN 2.5 MG TAB PO SCH ×2 (11:00→23:35)
[2020-07-28] MEDS: CLOPIDOGREL 75 MG TAB PO SCH (11:01)
[2020-07-28] MEDS: VALSARTAN 160MG TAB PO SCH ×2 (11:01→23:34)
[2020-07-28] MEDS: CILOSTAZOL 100 MG TAB PO SCH ×2 (11:01→23:35)
[2020-07-28] MEDS: carvediloL 12.5 MG TAB PO SCH ×2 (11:01→23:36)
[2020-07-28] MEDS: PANTOPRAZOLE 40 MG TAB PO SCH (11:07)
[2020-07-28] MEDS: guaiFENesin/CODEINE 100-10MG ORAL LIQD 5 ML PO PRN ×2 (11:09→23:39)
[2020-07-28] MEDS: MORPHINE 2 MG/1 ML INJ IV PRN (12:23)
--- NOTE | 2020-07-28 19:51 | Progress Note ---
Assessment and Plan - Patient Problems (1) Cellulitis of foot, left Current Visit: Yes Status: Acute (2) DVT prophylaxis Current Visit: Yes Status: Acute (3) Peripheral vascular disease of lower extremity Current Visit: Yes Status: Acute Subjective Date of service: 07/28/20 Principal diagnosis: LE CLI Objective - Constitutional Vitals: Vital Signs - 12hr 07/28/20 07/28/20 10:59 11:01 Temperature 99.1 F Pulse Rate 84 Respiratory 20 Rate Blood Pressure 176/77 176/77 O2 Sat by Pulse 95 Oximetry General appearance: Present: no acute distress, well-nourished - EENT Eyes: PERRL, EOM intact ENT: hearing intact, clear oral mucosa Ears: bilateral: normal - Neck Neck: supple, normal ROM - Respiratory Respiratory effort: normal Respiratory: bilateral: CTA - Breasts Breasts: normal - Cardiovascular Rhythm: regular Heart Sounds: Present: S1 & S2. Absent: gallop, rub Extremities: pulses intact, No edema, normal color, Full ROM - Gastrointestinal General gastrointestinal: Present: soft, non-tender, non-distended, normal bowel sounds - Genitourinary Male genitourinary: normal - Integumentary Integumentary: clear, warm, dry - Musculoskeletal Musculoskeletal: 1, strength equal bilaterally - Neurologic Neurologic: moves all extremities - Psychiatric Psychiatric: memory intact, appropriate mood/affect, intact judgment & insight - Labs CBC & Chem 7: 07/24/20 05:05 07/23/20 04:29
[2020-07-28] MEDS: traZODone 50 MG TAB PO SCH (23:35)
[2020-07-28] MEDS: oxyCODONE /ACETAMINOPHEN 5-325MG TAB PO PRN (23:39)
[2020-07-29] MEDS: oxyCODONE /ACETAMINOPHEN 5-325MG TAB PO PRN ×2 (05:56→19:43)
[2020-07-29] MEDS: CILOSTAZOL 100 MG TAB PO SCH ×2 (11:21→21:59)
[2020-07-29] MEDS: carvediloL 12.5 MG TAB PO SCH ×2 (11:21→21:59)
[2020-07-29] MEDS: DOCUSATE SODIUM 100 MG CAP PO SCH ×2 (11:21→21:58)
[2020-07-29] MEDS: APIXABAN 2.5 MG TAB PO SCH ×2 (11:22→21:59)
[2020-07-29] MEDS: VALSARTAN 160MG TAB PO SCH ×2 (11:22→22:00)
[2020-07-29] MEDS: CLOPIDOGREL 75 MG TAB PO SCH (11:23)
[2020-07-29] MEDS: PANTOPRAZOLE 40 MG TAB PO SCH (11:26)
--- NOTE | 2020-07-29 12:09 | Event Note ---
Date: 07/29/20 Patient scheduled for Left TMA tomorrow. Will make n.p.o after midnight. Risk, benefits, and alternatives have been given.
--- NOTE | 2020-07-29 17:31 | Progress Note ---
Assessment and Plan (1) Gangrene of left foot Current Visit: Yes Status: Acute Plan to address problem: For TMA L foot tomorrow (2) Cellulitis of foot, left Current Visit: Yes Status: Acute Plan to address problem: Was treated with IV abx (3) Peripheral vascular disease of lower extremity Current Visit: Yes Status: Acute Plan to address problem: LLE revascularization done last week (4) HTN (hypertension) Current Visit: Yes Status: Chronic Qualifiers: Hypertension type: essential hypertension Qualified Code(s): I10 - Essential (primary) hypertension Plan to address problem: Cont antihypertensives (5) CAD (coronary artery disease) Current Visit: Yes Status: Chronic Qualifiers: Coronary Disease-Associated Artery/Lesion type: [place] artery [place] vs. transplanted heart: [place] heart Plan to address problem: On Plavix (6) CHF (congestive heart failure) Current Visit: Yes Status: Chronic Qualifiers: Heart failure type: combined systolic and diastolic Plan to address problem: On high dose Lasix Check EF and adjust Lasix dose (7) DVT prophylaxis Current Visit: Yes Status: Acute Plan to address problem: On Heparin Subjective Date of service: 07/29/20 Principal diagnosis: LE CLI Interval history: For Left TMA tomorrow No complaints Had revascularization procedure on LLE last week Objective - Constitutional Vitals: Vital Signs - 12hr 07/29/20 07/29/20 07/29/20 05:36 05:52 05:56 Temperature 99.5 F Pulse Rate 90 78 Respiratory 16 16 17 Rate Blood Pressure 163/73 Blood Pressure 119/60 [Left] O2 Sat by Pulse 94 93 Oximetry 07/29/20 07/29/20 07/29/20 06:56 11:16 11:21 Temperature 98.8 F Pulse Rate 77 Respiratory 17 20 Rate Blood Pressure 157/75 Blood Pressure [Left] O2 Sat by Pulse 91 Oximetry 07/29/20 11:22 Temperature Pulse Rate Respiratory Rate Blood Pressure 157/75 Blood Pressure [Left] O2 Sat by Pulse Oximetry General appearance: Present: no acute distress, well-nourished - EENT Eyes: PERRL, EOM intact ENT: hearing intact, clear oral mucosa Ears: bilateral: normal - Neck Neck: supple, normal ROM - Respiratory Respiratory effort: normal Respiratory: bilateral: CTA - Breasts Breasts: normal - Cardiovascular Rhythm: regular Heart Sounds: Present: S1 & S2. Absent: gallop, rub Extremities: pulses intact, No edema, normal color, Full ROM, abnormal (L foot gangrene distal foot) Extremity abnormal: other (L foot gangrene) - Gastrointestinal General gastrointestinal: Present: soft, non-tender, non-distended, normal bowel sounds - Genitourinary Male genitourinary: normal - Integumentary Integumentary: clear, warm, dry - Musculoskeletal Musculoskeletal: 1, strength equal bilaterally - Neurologic Neurologic: moves all extremities - Psychiatric Psychiatric: memory intact, appropriate mood/affect, intact judgment & insight - Labs CBC & Chem 7: 07/24/20 05:05 07/30/20 04:58
[2020-07-29] MEDS: traZODone 50 MG TAB PO SCH (21:59)
[2020-07-29] MEDS: guaiFENesin/CODEINE 100-10MG ORAL LIQD 5 ML PO PRN (22:01)
[2020-07-30] MEDS: oxyCODONE /ACETAMINOPHEN 5-325MG TAB PO PRN (00:10)
[2020-07-30] MEDS: SODIUM CHLORIDE 0.9% 1000 ML 1,000 ML IV SCH (05:49)
[2020-07-30 07:02] LABS: BUN/Creatinine Ratio 13; Blood Urea Nitrogen 16 mg/dL (9-20); Calcium 8.8 mg/dL (8.4-10.2); Hemolysis Index 0
--- NOTE | 2020-07-30 10:36 | Anesthesia Consultation ---
Anesthesia Consult and Med Hx Date of service: 07/30/20 - Airway Anesthetic Teeth Evaluation: Good ROM Head & Neck: Adequate Mental/Hyoid Distance: Adequate Mallampati Class: Class II Intubation Access Assessment: Good - Pulmonary Exam CTA: Yes - Cardiac Exam Cardiac Exam: RRR - Pre-Operative Health Status ASA Pre-Surgery Classification: ASA3 Proposed Anesthetic Plan: General - Cardiovascular System Hx Hypertension: Yes Hx Coronary Artery Disease: Yes (4 vessel Cabg mar 2019) Hx Peripheral Vascular Disease: Yes - Other Systems Hx Cancer: Yes (father had colon cancer)
--- NOTE | 2020-07-30 10:37 | Anesthesia Day of Surgery ---
Anesthesia Day of Surgery - Day of Surgery Patient Examined: Yes Patient H&P Reviewed: Yes Patient is NPO: Yes Beta Blockers: No
[2020-07-30] MEDS: DOCUSATE SODIUM 100 MG CAP PO SCH ×2 (12:58→22:18)
[2020-07-30] MEDS: carvediloL 12.5 MG TAB PO SCH ×2 (13:00→22:18)
[2020-07-30] MEDS: CLOPIDOGREL 75 MG TAB PO SCH (13:03)
[2020-07-30] MEDS: APIXABAN 2.5 MG TAB PO SCH ×2 (13:04→22:18)
[2020-07-30] MEDS: PANTOPRAZOLE 40 MG TAB PO SCH (13:10)
[2020-07-30] MEDS: CILOSTAZOL 100 MG TAB PO SCH ×2 (13:12→22:18)
[2020-07-30] MEDS ORDERED: ONDANSETRON 4 MG/2 ML INJ IV PRN (13:33)
[2020-07-30] MEDS ORDERED: HYDROmorphone 1 MG/1 ML INJ IV PRN (13:33)
[2020-07-30] MEDS ORDERED: LIDOCAINE MPF (2%) 20 MG/1 ML VIAL 5 ML ONE (13:38)
[2020-07-30] MEDS ORDERED: HYDROmorphone 1 MG/1 ML INJ ONE (13:38)
[2020-07-30] MEDS ORDERED: propofoL 200 MG/20 ML VIAL IV ONE (13:38)
[2020-07-30] MEDS ORDERED: SODIUM CHLORIDE 0.9% 1000 ML 1,000 ML IV SCH (13:45)
[2020-07-30] MEDS ORDERED: LIDOCAINE (1%) 10 MG/1 ML VIAL 20 ML MDV ONE (13:52)
[2020-07-30] MEDS ORDERED: MIDAZOLAM 2 MG/2 ML INJ IV NR (14:00)
[2020-07-30] MEDS ORDERED: ePHEDrine SULFATE 50 MG/1 ML INJ ONE ×2 (14:20→14:44)
[2020-07-30] MEDS ORDERED: PHENYLEPHRINE/NS 1,000 MCG/10 ML SYRINGE (OR USE) IV ONE (14:36)
[2020-07-30] MEDS ORDERED: SODIUM CHLORIDE P/F VIAL 10 ML 10 ML ONE (15:07)
[2020-07-30] MEDS ORDERED: BACITRACIN 50,000 UNIT VIAL ONE (15:07)
[2020-07-30] MEDS ORDERED: VASOPRESSIN 20 UNIT/1 ML INJ ONE (15:13)
[2020-07-30] MEDS ORDERED: SODIUM CHLORIDE 0.9% IRR 1,500 ML BOTTLE IR ONE (15:20)
[2020-07-30] MEDS ORDERED: LIDOCAINE (1%) 10 MG/1 ML VIAL 20 ML MDV INFILTRATI ONE (15:21)
[2020-07-30] MEDS ORDERED: BACITRACIN ZINC OINT 28.4 GM TP ONE (15:22)
[2020-07-30] MEDS ORDERED: SODIUM CHLORIDE 0.9% 1000 ML 1,000 ML ONE (15:26)
[2020-07-30] MEDS ORDERED: WATER FOR IRRIG STERILE 2000 ML IR ONE (15:27)
--- NOTE | 2020-07-30 16:17 | Operative Report ---
Operative Report Operative Report: Date of procedure: 07/30/2020 Pre-operative diagnosis: Peripheral Vascular Disease with Left Foot Gangrene Post-operative diagnosis: Same Procedure(s): 1. Left Transmetatarsal Amputation Surgeon: Moe Holland MD Pediatric Occupational Therapist: None Anesthesia: General Endotracheal Anesthesia EBL: 100 mL Counts: Correct Complications: None Condition: Stable Findings: The patient had a midfoot abscess however the remainder of the tissue was healthy and viable. The wound was able to be closed without any tension. Specimen: Left forefoot sent for pathology and wound cultures were sent. Indication: The patient is a 64-year-old male with history of peripheral vascular disease and left foot gangrene. He had revascularization of his left lower extremity and now requires a transmetatarsal amputation. He was given the risk, benefits, and alternative procedures and consented to the procedure. Description of Procedure: The patient was brought to the operating room and laid in supine position after general endotracheal anesthesia was achieved was prepped and draped in normal sterile fashion. A transverse incision was then created along the midportion of the metatarsals and carried distally to create a posterior flap. Upon creating the incision in the midfoot there was purulent drainage from below the midfoot eschar. Electrocautery was used to take the dissection down to the metatarsals and the periosteum was then elevated on each metatarsal. The oscillating saw was then used to transect each metatarsal and then electrocautery was used to divide the remaining soft tissue and the specimen was passed off. Cautery was then used to achieve hemostasis within the wound and then a rasp was used to smooth each edge of the bone. Once hemostasis was achieved the wound was irrigated using a pulse lavage with gentamicin infused solution. The wound was then closed in 2 layers using 3-0 Vicryl to reapproximate the fascia and chencho to reapproximate the skin. The wound was then dressed with Xeroform gauze, fluffs, Kerlix, and an Zach bandage. The patient tolerated procedure well all sponge needle and instrument counts correct, the patient was taken to recovery in stable condition.
--- NOTE | 2020-07-30 18:08 | Post Anesthesia Evaluation ---
- Post Anesthesia Evaluation Patient Participated: Yes Airway Patent: Yes Stable Respiratory Function: Yes Nausea/Vomiting: No Temp > 96.8F: Yes Pain Manageable: Yes Adequeate Hydration: Yes Anesthesia Complications: No
[2020-07-30] MEDS: VALSARTAN 160MG TAB PO SCH ×2 (19:45→22:18)
[2020-07-30] MEDS: traZODone 50 MG TAB PO SCH (22:18)
--- NOTE | 2020-07-30 22:59 | Progress Note ---
Assessment and Plan - Patient Problems (1) Gangrene of left foot Current Visit: Yes Status: Acute Plan to address problem: Had TMA today Post op doing well Discharge planning after discussing with Dr Moe Holland group (2) Cellulitis of foot, left Current Visit: Yes Status: Acute Plan to address problem: Was treated with IV abx (3) Peripheral vascular disease of lower extremity Current Visit: Yes Status: Acute Plan to address problem: LLE revascularization done last week (4) HTN (hypertension) Current Visit: Yes Status: Chronic Qualifiers: Hypertension type: essential hypertension Qualified Code(s): I10 - Essential (primary) hypertension Plan to address problem: Cont antihypertensives (5) CAD (coronary artery disease) Current Visit: Yes Status: Chronic Qualifiers: Coronary Disease-Associated Artery/Lesion type: [place] artery [place] vs. transplanted heart: [place] heart Plan to address problem: On Plavix (6) CHF (congestive heart failure) Current Visit: Yes Status: Chronic Qualifiers: Heart failure type: combined systolic and diastolic Plan to address problem: On high dose Lasix Check EF and adjust Lasix dose (7) DVT prophylaxis Current Visit: Yes Status: Acute Plan to address problem: On Heparin Subjective Date of service: 07/30/20 Principal diagnosis: Left foot gangrene and PAD Interval history: Had Left TMA today and post op doinf well No complaints Had revascularization procedure on LLE last week Objective - Constitutional Vitals: Vital Signs - 12hr 07/30/20 07/30/20 07/30/20 12:00 13:35 13:40 Temperature 99.0 F 99.2 F 99.2 F Pulse Rate 71 78 78 Respiratory 20 22 22 Rate Blood Pressure 168/71 157/73 157/73 O2 Sat by Pulse 94 96 96 Oximetry 07/30/20 07/30/20 07/30/20 15:43 15:45 15:55 Temperature 97.9 F Pulse Rate 72 78 75 Respiratory 16 21 19 Rate Blood Pressure 116/64 123/63 128/54 O2 Sat by Pulse 98 98 97 Oximetry 07/30/20 07/30/20 16:01 16:15 Temperature Pulse Rate 79 82 Respiratory 15 14 Rate Blood Pressure 136/47 131/63 O2 Sat by Pulse 98 98 Oximetry General appearance: Present: no acute distress, well-nourished - EENT Eyes: PERRL, EOM intact ENT: hearing intact, clear oral mucosa Ears: bilateral: normal - Neck Neck: supple, normal ROM - Respiratory Respiratory effort: normal Respiratory: bilateral: CTA - Breasts Breasts: normal - Cardiovascular Heart rate: 78 Rhythm: regular Heart Sounds: Present: S1 & S2. Absent: gallop, rub Extremities: pulses intact, No edema, normal color, Full ROM, abnormal (L foot TMA) Extremity abnormal: other (L foot TMA) - Gastrointestinal General gastrointestinal: Present: soft, non-tender, non-distended, normal bowel sounds - Genitourinary Male genitourinary: normal - Integumentary Integumentary: clear, warm, dry - Musculoskeletal Musculoskeletal: 1, strength equal bilaterally - Neurologic Neurologic: moves all extremities - Psychiatric Psychiatric: memory intact, appropriate mood/affect, intact judgment & insight - Labs CBC & Chem 7: 07/24/20 05:05 07/30/20 04:58 Labs: Abnormal lab results 07/30/20 Range/Units 04:58 Potassium 3.0 L (3.6-5.0) mmol/L Chloride 97.1 L (98-107) mmol/L Glucose 173 H (75-100) mg/dL
[2020-07-31] MEDS: MORPHINE 2 MG/1 ML INJ IV PRN ×2 (02:49→09:22)
[2020-07-31] MEDS: CLOPIDOGREL 75 MG TAB PO SCH (09:22)
[2020-07-31] MEDS: PANTOPRAZOLE 40 MG TAB PO SCH (09:23)
[2020-07-31] MEDS: CILOSTAZOL 100 MG TAB PO SCH ×2 (09:23→22:00)
[2020-07-31] MEDS: LISINOPRIL 20 MG TAB PO SCH (09:23)
[2020-07-31] MEDS: SPIRONOLACTONE 25 MG TAB PO SCH (09:23)
[2020-07-31] MEDS: carvediloL 12.5 MG TAB PO SCH ×2 (09:23→21:59)
[2020-07-31] MEDS: APIXABAN 2.5 MG TAB PO SCH ×2 (09:23→21:59)
[2020-07-31] MEDS: THIAMINE 100 MG TAB PO SCH (09:23)
[2020-07-31] MEDS: FOLIC ACID 1 MG TAB PO SCH (09:24)
[2020-07-31] MEDS: DOCUSATE SODIUM 100 MG CAP PO SCH ×2 (09:24→21:59)
[2020-07-31] MEDS: FUROSEMIDE 40 MG TAB PO SCH ×2 (09:26→17:00)
[2020-07-31] MEDS ORDERED: NON-FORMULARY EACH (Furosemide [Lasix Tab] 80 MG) PO SCH (10:00)
[2020-07-31] MEDS ORDERED: METOPROLOL TARTRATE 50 MG TAB PO SCH (10:00)
--- NOTE | 2020-07-31 14:53 | Event Note ---
Date: 07/31/20 Will allow dressings to remain in place for 72 hours (48 hours from now). At that time, dressings can be changed. Will need wound care evaluation in 48 hours.
--- NOTE | 2020-07-31 18:49 | Progress Note ---
Assessment and Plan (1) Gangrene of left foot Current Visit: Yes Status: Acute Plan to address problem: s/p TMA 07/30 Post op doing well Discharge planning after discussing with Dr Moe Holland group Plan to reassess the wound tomorrow (2) Cellulitis of foot, left Current Visit: Yes Status: Acute Plan to address problem: Was treated with IV abx (3) Peripheral vascular disease of lower extremity Current Visit: Yes Status: Acute Plan to address problem: LLE revascularization done last week (4) HTN (hypertension) Current Visit: Yes Status: Chronic Qualifiers: Hypertension type: essential hypertension Qualified Code(s): I10 - Essential (primary) hypertension Plan to address problem: Cont antihypertensives (5) CAD (coronary artery disease) Current Visit: Yes Status: Chronic Qualifiers: Coronary Disease-Associated Artery/Lesion type: [place] artery [place] vs. transplanted heart: [place] heart Plan to address problem: On Plavix (6) CHF (congestive heart failure) Current Visit: Yes Status: Chronic Qualifiers: Heart failure type: combined systolic and diastolic Plan to address problem: On high dose Lasix Check EF and adjust Lasix dose Status post echo today, will follow the result (7) DVT prophylaxis Current Visit: Yes Status: Acute Plan to address problem: On Heparin Subjective Date of service: 07/31/20 Principal diagnosis: LE CLI Interval history: Patient seen and examined Complains of slight only left foot pain Tolerating diet Status post 2d echo today Objective - Exam Narrative Exam: General appearance: Present: no acute distress, well-nourished - EENT Eyes: PERRL, EOM intact ENT: hearing intact, clear oral mucosa Ears: bilateral: normal - Neck Neck: supple, normal ROM - Respiratory Respiratory effort: normal Respiratory: bilateral: CTA - Breasts Breasts: normal - Cardiovascular Heart rate: 78 Rhythm: regular Heart Sounds: Present: S1 & S2. Absent: gallop, rub Extremities: pulses intact, No edema, normal color, Full ROM, abnormal (L foot TMA) Extremity abnormal: other (L foot TMA) - Gastrointestinal General gastrointestinal: Present: soft, non-tender, non-distended, normal bowel sounds - Genitourinary Male genitourinary: normal - Integumentary Integumentary: clear, warm, dry - Musculoskeletal Musculoskeletal: 1, strength equal bilaterally - Neurologic Neurologic: moves all extremities - Psychiatric Psychiatric: memory intact, appropriate mood/affect, intact judgment & insight - Constitutional Vitals: Vital Signs - 12hr 07/31/20 07/31/20 07/31/20 09:22 10:00 12:40 Temperature 98 F Pulse Rate 79 Respiratory 20 20 Rate Blood Pressure Blood Pressure 176/78 [Left] O2 Sat by Pulse 99 Oximetry 07/31/20 15:41 Temperature 99.5 F Pulse Rate 79 Respiratory 20 Rate Blood Pressure 135/70 Blood Pressure [Left] O2 Sat by Pulse 88 Oximetry - Labs CBC & Chem 7: 07/24/20 05:05 08/01/20 10:39
[2020-07-31] MEDS ORDERED: POTASSIUM CHLORIDE ER 20 MEQ TAB PO ONE (20:47)
[2020-07-31] MEDS: traZODone 50 MG TAB PO SCH (21:59)
[2020-07-31] MEDS: oxyCODONE /ACETAMINOPHEN 5-325MG TAB PO PRN (22:03)
[2020-08-01] MEDS: ACETAMINOPHEN 325 MG TAB PO PRN ×2 (00:52→23:27)
[2020-08-01] MEDS: FUROSEMIDE 40 MG TAB PO SCH (05:32)
[2020-08-01] MEDS: PANTOPRAZOLE 40 MG TAB PO SCH (08:35)
--- NOTE | 2020-08-01 10:33 | Progress Note ---
Assessment and Plan Doing well PT with Lulu boot Okay to Discharge once he ambulates, from a surgical standpoint Subjective Date of service: 08/01/20 Principal diagnosis: LE CLI Interval history: No complaints. Objective - Constitutional Vitals: Vital Signs - 12hr 07/31/20 08/01/20 08/01/20 23:03 00:52 05:46 Temperature 100.3 F H 97.8 F Pulse Rate 84 65 Respiratory 22 20 20 Rate Blood Pressure 136/59 123/51 O2 Sat by Pulse 94 94 Oximetry General appearance: Present: no acute distress - Respiratory Respiratory effort: normal Extremities: no ischemia, normal temperature, abnormal (Left TMA incision is intact without evidence of infection or ischemia) - Labs CBC & Chem 7: 07/24/20 05:05 07/30/20 04:58 Medications & Allergies - Medications Allergies/Adverse Reactions: Allergies Penicillins Allergy (Verified 07/16/20 22:49) Hives Home Medications: Home Medications Medication Instructions Recorded Confirmed Last Taken Type Acetaminophen [Tylenol] 325 mg PO Q6HR 07/17/20 07/17/20 Unknown History Acetaminophen/Codeine [Tylenol 1 tab PO Q4HR PRN 07/17/20 07/17/20 Unknown History /Codeine # 3 tab] AtorvaSTATin [Lipitor] 40 mg PO QHS 07/17/20 07/17/20 Unknown History Azithromycin [Zithromax Z-JENNA] 0 mg PO DAILY 07/17/20 07/17/20 Unknown History Clopidogrel [Plavix] 75 mg PO QDAY 07/17/20 07/17/20 Unknown History Folic Acid [Folvite] 1 mg PO QDAY 07/17/20 07/17/20 Unknown History Furosemide [Lasix TAB] 80 mg PO BID 07/17/20 07/17/20 Unknown History Metoprolol [Lopressor TAB] 50 mg PO BID 07/17/20 07/17/20 Unknown History Spironolactone [Aldactone] 25 mg PO QDAY 07/17/20 07/17/20 Unknown History Thiamine [Vitamin B-1] 100 mg PO QDAY 07/17/20 07/17/20 Unknown History guaiFENesin [Guaifenesin] 400 mg PO Q6HR 07/17/20 07/17/20 Unknown History lisinopriL [Zestril] 20 mg PO QDAY 07/17/20 07/17/20 Unknown History Active Medications: Generic Name Dose Route Start Last Admin Trade Name Freq PRN Reason Stop Dose Admin Acetaminophen 650 mg 07/17/20 00:20 08/01/20 00:52 Tylenol PO 650 mg Q4H PRN Administration Pain MILD(1-3)/Fever >100.5/REYES Apixaban 2.5 mg 07/25/20 22:00 07/31/20 21:59 Eliquis PO 2.5 mg Q12HR DELFINO Administration Protocol Atorvastatin Calcium 40 mg 07/31/20 22:00 07/31/20 21:59 Lipitor PO 40 mg QHS DELFINO Administration Carvedilol 12.5 mg 07/17/20 22:00 07/31/20 21:59 Coreg PO 12.5 mg BID DELFINO Administration Cilostazol 100 mg 07/25/20 22:00 07/31/20 22:00 Pletal PO 100 mg BID DELFINO Administration Clopidogrel Bisulfate 75 mg 07/31/20 10:00 07/31/20 09:22 Plavix PO 75 mg QDAY DELFINO Administration Docusate Sodium 100 mg 07/22/20 22:00 07/31/20 21:59 Colace PO 100 mg BID DELFINO Administration Folic Acid 1 mg 07/31/20 10:00 07/31/20 09:24 Folvite PO 1 mg QDAY DELFINO Administration Furosemide 80 mg 07/31/20 08:45 08/01/20 05:32 Lasix PO 80 mg BID@0600,1800 DELFINO Administration Hydralazine HCl 10 mg 07/17/20 02:24 07/17/20 06:10 Apresoline IV 10 mg Q6HR PRN Administration Blood Pressure Hydromorphone HCl 0.5 mg 07/30/20 13:33 Dilaudid IV Q10MIN PRN Pain , Severe (7-10) Sodium Chloride 1,000 mls @ 75 mls/hr 07/17/20 00:30 07/30/20 05:49 Nacl 0.9% 1000 Ml IV 75 mls/hr DIRECT DELFINO Administration Clindamycin HCl 600 mg in 50 mls @ 100 mls/hr 08/01/20 10:00 Cleocin 600 Mg/50 Ml IV 08/04/20 09:59 Q8HR DELFINO Protocol Labetalol HCl 10 mg 07/17/20 17:20 07/23/20 13:06 Labetalol IV 10 mg Q3H PRN Administration Blood Pressure Lisinopril 20 mg 07/31/20 10:00 07/31/20 09:23 Zestril PO 20 mg QDAY DELFINO Administration Lorazepam 1 mg 07/23/20 16:45 07/31/20 22:04 Ativan PO 1 mg QHS PRN Administration Sleep Magnesium Hydroxide 30 ml 07/17/20 00:20 Milk Of Magnesia PO Q4H PRN Constipation Morphine Sulfate 2 mg 07/17/20 00:20 07/31/20 09:22 Morphine IV 2 mg Q4H PRN Administration Pain, Moderate (4-6) Ondansetron HCl 4 mg 07/17/20 00:20 Zofran IV Q8H PRN Nausea And Vomiting Oxycodone/Acetaminophen 1 tab 07/25/20 14:53 07/31/20 22:03 Percocet 5/325 PO 1 tab Q4H PRN Administration Pain, Moderate (4-6) Pantoprazole Sodium 40 mg 07/19/20 16:00 07/31/20 09:23 Protonix PO 40 mg QDAC DELFINO Administration Pseudoephedrine/Acetam/Chlorphenir 10 ml 07/20/20 18:21 07/29/20 22:01 Robitussin Ac PO 10 ml BID PRN Administration Cough Sodium Chloride 10 ml 07/17/20 10:00 07/31/20 22:00 Sodium Chloride Flush Syringe 10 Ml IV 10 ml BID DELFINO Administration Sodium Chloride 10 ml 07/17/20 00:20 Sodium Chloride Flush Syringe 10 Ml IV PRN PRN LINE FLUSH Spironolactone 25 mg 07/31/20 10:00 07/31/20 09:23 Aldactone PO 25 mg QDAY DELFINO Administration Thiamine HCl 100 mg 07/31/20 10:00 07/31/20 09:23 Vitamin B-1 PO 100 mg QDAY DELFINO Administration Trazodone HCl 50 mg 07/19/20 23:45 07/31/20 21:59 Desyrel PO 50 mg QHS DELFINO Administration
[2020-08-01] MEDS: DOCUSATE SODIUM 100 MG CAP PO SCH ×2 (10:34→21:45)
[2020-08-01] MEDS: CILOSTAZOL 100 MG TAB PO SCH ×2 (10:34→21:46)
[2020-08-01] MEDS: LISINOPRIL 20 MG TAB PO SCH (10:34)
[2020-08-01] MEDS: carvediloL 12.5 MG TAB PO SCH ×2 (10:35→21:46)
[2020-08-01] MEDS: CLOPIDOGREL 75 MG TAB PO SCH (10:36)
[2020-08-01] MEDS: SPIRONOLACTONE 25 MG TAB PO SCH (10:36)
[2020-08-01] MEDS: APIXABAN 2.5 MG TAB PO SCH ×2 (10:36→21:46)
[2020-08-01] MEDS: THIAMINE 100 MG TAB PO SCH (10:36)
[2020-08-01] MEDS: CLINDAMYCIN 600 MG/50 mL 600 MG/50 ML BAG IV SCH ×3 (10:36→21:45)
[2020-08-01] MEDS: FOLIC ACID 1 MG TAB PO SCH (10:36)
[2020-08-01] MEDS: MORPHINE 2 MG/1 ML INJ IV PRN (10:37)
--- NOTE | 2020-08-01 13:34 | Progress Note ---
Assessment and Plan (1) Gangrene of left foot Current Visit: Yes Status: Acute Plan to address problem: s/p TMA 07/30 Post op doing well Patient was evaluated by surgery today and cleared for discharge from surgical standpoint Wait for PT eval for discharge planning (2) Cellulitis of foot, left Current Visit: Yes Status: Acute Plan to address problem: Was treated with IV abx (3) Peripheral vascular disease of lower extremity Current Visit: Yes Status: Acute Plan to address problem: LLE revascularization done on 07/18 and 07/24 Continue antiplatelets and statin (4) HTN (hypertension) Current Visit: Yes Status: Chronic Qualifiers: Hypertension type: essential hypertension Qualified Code(s): I10 - Essential (primary) hypertension Plan to address problem: Cont antihypertensives (5) CAD (coronary artery disease) Current Visit: Yes Status: Chronic Qualifiers: Coronary Disease-Associated Artery/Lesion type: [place] artery [place] vs. transplanted heart: [place] heart Plan to address problem: On Plavix (6) CHF (congestive heart failure) Current Visit: Yes Status: Chronic Qualifiers: Heart failure type: diastolic Plan to address problem: 2D echo showed preserved EF We will hold the Lasix for now (7) DVT prophylaxis Current Visit: Yes Status: Acute Plan to address problem: On Heparin Disposition: Discharge pending on physical therapy clearance. Patient noted to have dizziness and unsteady gait with physical therapy today. We will continue to follow. We will discontinue Lasix today. Order BMP tomorrow. Subjective Date of service: 08/01/20 Principal diagnosis: LE CLI Interval history: Patient seen and examined Complains of slight only left foot pain Tolerating diet Patient showed dizziness and unsteady gait with physical therapy We will continue to monitor Objective - Exam Narrative Exam: General appearance: Present: no acute distress, well-nourished - EENT Eyes: PERRL, EOM intact ENT: hearing intact, clear oral mucosa Ears: bilateral: normal - Neck Neck: supple, normal ROM - Respiratory Respiratory effort: normal Respiratory: bilateral: CTA - Breasts Breasts: normal - Cardiovascular Heart rate: 78 Rhythm: regular Heart Sounds: Present: S1 & S2. Absent: gallop, rub Extremities: pulses intact, No edema, normal color, Full ROM, abnormal (L foot TMA) Extremity abnormal: other (L foot TMA) - Gastrointestinal General gastrointestinal: Present: soft, non-tender, non-distended, normal bowel sounds - Genitourinary Male genitourinary: normal - Integumentary Integumentary: clear, warm, dry - Musculoskeletal Musculoskeletal: 1, strength equal bilaterally - Neurologic Neurologic: moves all extremities - Psychiatric Psychiatric: memory intact, appropriate mood/affect, intact judgment & insight - Constitutional Vitals: Vital Signs - 12hr 08/01/20 08/01/20 08/01/20 05:46 10:00 10:34 Temperature 97.8 F Pulse Rate 65 75 Pulse Rate [ 85 Apical] Pulse Rate [ 85 Right Radial] Respiratory 20 18 Rate Blood Pressure 123/51 150/70 O2 Sat by Pulse 94 97 Oximetry 08/01/20 08/01/20 08/01/20 10:35 10:36 10:37 Temperature Pulse Rate 75 75 Pulse Rate [ Apical] Pulse Rate [ Right Radial] Respiratory 16 Rate Blood Pressure 150/70 150/70 O2 Sat by Pulse Oximetry 08/01/20 11:07 Temperature Pulse Rate Pulse Rate [ Apical] Pulse Rate [ Right Radial] Respiratory 15 Rate Blood Pressure O2 Sat by Pulse Oximetry - Labs CBC & Chem 7: 07/24/20 05:05 08/02/20 05:16 Labs: Abnormal lab results 08/01/20 Range/Units 10:39 Potassium 3.4 L (3.6-5.0) mmol/L
[2020-08-01] MEDS: traZODone 50 MG TAB PO SCH (21:46)
[2020-08-01] MEDS ORDERED: SODIUM CHLORIDE 0.9% 1000 ML 1,000 ML IV SCH (23:15)
[2020-08-02] MEDS: guaiFENesin/CODEINE 100-10MG ORAL LIQD 5 ML PO PRN (01:03)
[2020-08-02] MEDS: MIDODRINE 5 MG TAB PO SCH ×4 (03:08→19:10)
[2020-08-02] MEDS: CLINDAMYCIN 600 MG/50 mL 600 MG/50 ML BAG IV SCH ×3 (06:05→21:43)
[2020-08-02 07:08] LABS: Calcium 8.6 mg/dL (8.4-10.2)
[2020-08-02] MEDS: SODIUM CHLORIDE 0.9% 1000 ML 1,000 ML IV SCH (09:58)
[2020-08-02] MEDS: IPRATROPIUM/ALBUTEROL SULFATE 3 ML AMPUL.NEB IH SCH ×3 (10:17→20:58)
--- NOTE | 2020-08-02 10:46 | XRay Report ---
CHEST 1 VIEW 08/02/2020 9:38 AM INDICATION / CLINICAL INFORMATION: SOB. COMPARISON: None available. FINDINGS: SUPPORT DEVICES: None. HEART / MEDIASTINUM: Upper normal size for AP portable technique. Median sternotomy wires and CABG cl ips. LUNGS / PLEURA: No significant pulmonary or pleural abnormality. No pneumothorax. ADDITIONAL FINDINGS: No significant additional findings. IMPRESSION: 1. No acute findings. Signer Name: Hiren Gonzalez MD Signed: 08/02/2020 10:42 AM Workstation Name: [id number]
--- NOTE | 2020-08-02 10:59 | Progress Note ---
Assessment and Plan Patient is doing well postop day 2 following his TMA. The dressing was changed. Patient has not yet seen wound care. He will need to begin ambulation with his forefoot offloading shoe. Once the patient is ambulatory, he may be discharged home. Subjective Date of service: 08/02/20 Principal diagnosis: LE CLI Interval history: Patient status post left lower extremity revascularization and left TMA. Dressings changed. The wound margins are intact. No significant drainage. No significant complaints of any pain. The patient has not yet ambulated. He does not yet have his forefoot offloading shoe. Objective - Constitutional Vitals: Vital Signs - 12hr 08/01/20 08/01/20 08/02/20 23:03 23:27 02:35 Temperature 98.5 F Pulse Rate 77 68 Pulse Rate [ Anterior Bilateral Throughout] Respiratory 20 20 16 Rate Respiratory Rate [Anterior Bilateral Throughout] Blood Pressure 162/100 Blood Pressure 89/49 [Left] O2 Sat by Pulse 98 90 Oximetry 08/02/20 08/02/20 09:14 10:17 Temperature Pulse Rate Pulse Rate [ 89 Anterior Bilateral Throughout] Respiratory Rate Respiratory 20 Rate [Anterior Bilateral Throughout] Blood Pressure 91/37 Blood Pressure [Left] O2 Sat by Pulse Oximetry General appearance: Present: no acute distress - EENT Eyes: EOM intact ENT: hearing intact - Neck Neck: supple, normal ROM - Respiratory Respiratory effort: normal - Breasts Breasts: deferred Extremities: abnormal - Gastrointestinal General gastrointestinal: Present: deferred Rectal Exam: deferred - Genitourinary Male genitourinary: deferred - Psychiatric Psychiatric: appropriate mood/affect, cooperative - Labs CBC & Chem 7: 07/24/20 05:05 08/02/20 05:16 Labs: Abnormal lab results 08/01/20 08/02/20 Range/Units 10:39 05:16 Sodium 136 L (137-145) mmol/L Potassium 3.4 L 3.5 L (3.6-5.0) mmol/L BUN 42 H (9-20) mg/dL Creatinine 3.6 H D (0.8-1.3) mg/dL Glucose 150 H (75-100) mg/dL Medications & Allergies - Medications Allergies/Adverse Reactions: Allergies Penicillins Allergy (Verified 07/16/20 22:49) Hives Home Medications: Home Medications Medication Instructions Recorded Confirmed Last Taken Type Acetaminophen [Tylenol] 325 mg PO Q6HR 07/17/20 07/17/20 Unknown History Acetaminophen/Codeine [Tylenol 1 tab PO Q4HR PRN 07/17/20 07/17/20 Unknown Hist ory /Codeine # 3 tab] AtorvaSTATin [Lipitor] 40 mg PO QHS 07/17/20 07/17/20 Unknown History Azithromycin [Zithromax Z-JENNA] 0 mg PO DAILY 07/17/20 07/17/20 Unknown History Clopidogrel [Plavix] 75 mg PO QDAY 07/17/20 07/17/20 Unknown History Folic Acid [Folvite] 1 mg PO QDAY 07/17/20 07/17/20 Unknown History Furosemide [Lasix TAB] 80 mg PO BID 07/17/20 07/17/20 Unknown History Metoprolol [Lopressor TAB] 50 mg PO BID 07/17/20 07/17/20 Unknown History Spironolactone [Aldactone] 25 mg PO QDAY 07/17/20 07/17/20 Unknown History Thiamine [Vitamin B-1] 100 mg PO QDAY 07/17/20 07/17/20 Unknown History guaiFENesin [Guaifenesin] 400 mg PO Q6HR 07/17/20 07/17/20 Unknown History lisinopriL [Zestril] 20 mg PO QDAY 07/17/20 07/17/20 Unknown History Active Medications: Generic Name Dose Route Start Last Admin Trade Name Freq PRN Reason Stop Dose Admin Acetaminophen 650 mg 07/17/20 00:20 08/01/20 23:27 Tylenol PO 650 mg Q4H PRN Administration Pain MILD(1-3)/Fever >100.5/REYES Albuterol/Ipratropium 1 ampul 08/02/20 10:00 08/02/20 10:17 Ipratropium/Albuterol Sulfate 3 Ml Ampul.Neb IH 1 ampul Q6HRT DELFINO Administration Apixaban 2.5 mg 07/25/20 22:00 08/01/20 21:46 Eliquis PO 2.5 mg Q12HR DELFINO Administration Protocol Atorvastatin Calcium 40 mg 07/31/20 22:00 08/01/20 21:46 Lipitor PO 40 mg QHS DELFINO Administration Carvedilol 12.5 mg 07/17/20 22:00 08/01/20 21:46 Coreg PO 12.5 mg BID DELFINO Administration Cilostazol 100 mg 07/25/20 22:00 08/01/20 21:46 Pletal PO 100 mg BID DELFINO Administration Clopidogrel Bisulfate 75 mg 07/31/20 10:00 08/01/20 10:36 Plavix PO 75 mg QDAY DELFINO Administration Docusate Sodium 100 mg 07/22/20 22:00 08/01/20 21:45 Colace PO 100 mg BID DELFINO Administration Folic Acid 1 mg 07/31/20 10:00 08/01/20 10:36 Folvite PO 1 mg QDAY DELFINO Administration Hydralazine HCl 10 mg 07/17/20 02:24 07/17/20 06:10 Apresoline IV 10 mg Q6HR PRN Administration Blood Pressure Hydromorphone HCl 0.5 mg 07/30/20 13:33 Dilaudid IV Q10MIN PRN Pain , Severe (7-10) Clindamycin HCl 600 mg in 50 mls @ 100 mls/hr 08/01/20 10:00 08/02/20 06:05 Cleocin 600 Mg/50 Ml IV 08/04/20 09:59 100 mls/hr Q8HR DELFINO Administration Protocol Sodium Chloride 1,000 mls @ 100 mls/hr 08/02/20 10:00 08/02/20 09:58 Nacl 0.9% 1000 Ml IV 100 mls/hr DIRECT DELFINO Administration Labetalol HCl 10 mg 07/17/20 17:20 07/23/20 13:06 Labetalol IV 10 mg Q3H PRN Administration Blood Pressure Lorazepam 1 mg 07/23/20 16:45 07/31/20 22:04 Ativan PO 1 mg QHS PRN Administration Sleep Magnesium Hydroxide 30 ml 07/17/20 00:20 Milk Of Magnesia PO Q4H PRN Constipation Midodrine 5 mg 08/02/20 03:00 08/02/20 03:08 Proamatine PO 5 mg TID@0800,1200,1600 [facility] Administration Morphine Sulfate 2 mg 07/17/20 00:20 08/01/20 10:37 Morphine IV 2 mg Q4H PRN Administration Pain, Moderate (4-6) Ondansetron HCl 4 mg 07/17/20 00:20 Zofran IV Q8H PRN Nausea And Vomiting Oxycodone/Acetaminophen 1 tab 07/25/20 14:53 07/31/20 22:03 Percocet 5/325 PO 1 tab Q4H PRN Administration Pain, Moderate (4-6) Pantoprazole Sodium 40 mg 07/19/20 16:00 08/01/20 08:35 Protonix PO 40 mg QDAC [facility]FIN[facility] Administration Pseudoephedrine/Acetam/Chlorphenir 10 ml 07/20/20 18:21 08/02/20 01:03 Robitussin Ac PO 10 ml BID PRN Administration Cough Sodium Chloride 10 ml 07/17/20 10:00 08/01/20 21:47 Sodium Chloride Flush Syringe 10 Ml IV 10 ml BID [facility]FIN[facility] Administration Sodium Chloride 10 ml 07/17/20 00:20 Sodium Chloride Flush Syringe 10 Ml IV PRN PRN LINE FLUSH Spironolactone 25 mg 07/31/20 10:00 08/01/20 10:36 Aldactone PO 25 mg QDAY DELFIN[facility] Administration Thiamine HCl 100 mg 07/31/20 10:00 08/01/20 10:36 Vitamin B-1 PO 100 mg QDAY [facility]FIN[facility] Administration Trazodone HCl 50 mg 07/19/20 23:45 08/01/20 21:46 Desyrel PO 50 mg QHS DELFINO Administration
[2020-08-02] MEDS: SPIRONOLACTONE 25 MG TAB PO SCH (12:22)
[2020-08-02] MEDS: carvediloL 12.5 MG TAB PO SCH ×2 (12:23→23:26)
[2020-08-02] MEDS: PANTOPRAZOLE 40 MG TAB PO SCH (12:25)
[2020-08-02] MEDS: DOCUSATE SODIUM 100 MG CAP PO SCH ×2 (12:26→21:42)
[2020-08-02] MEDS: FOLIC ACID 1 MG TAB PO SCH (12:26)
[2020-08-02] MEDS: THIAMINE 100 MG TAB PO SCH (12:27)
[2020-08-02] MEDS: CLOPIDOGREL 75 MG TAB PO SCH (12:31)
[2020-08-02] MEDS: CILOSTAZOL 100 MG TAB PO SCH (12:32)
[2020-08-02] MEDS: APIXABAN 2.5 MG TAB PO SCH ×2 (12:32→21:39)
--- NOTE | 2020-08-02 13:37 | Progress Note ---
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 Post op doing well Patient was evaluated by surgery and cleared for discharge from surgical standpoint if patient is ambulatory Wait for wound care chaka PT recommended home health on discharge -- Cellulitis of foot, left Was treated with IV abx -- Peripheral vascular disease of lower extremity LLE revascularization done on 07/18 and 07/24 Continue antiplatelets and statin -- HTN (hypertension) BP hypotensive now, will continue to hold antihypertensives --CAD (coronary artery disease) On Plavix, statin -- CHF (congestive heart failure), chronic diastolic and compensated 2D echo showed preserved EF We will hold the Lasix for now -- DVT prophylaxis On Heparin Daily course: 07/31: Resumed care. Status post TMA yesterday. Postop doing well. Plan for 2D echo today. We will continue to monitor. 08/01; Discharge pending on physical therapy clearance. Patient noted to have dizziness and unsteady gait with physical therapy today. We will continue to follow. We will discontinue Lasix today. Order BMP tomorrow. 08/02: Serum creatinine greater than 3 today, patient admitted with normal creatinine level. STEW developed likely due to overdiuresis. Will place on IV fluid, repeat BMP tomorrow morning if no improvement in 24-hour we will consult nephrology. Subjective Date of service: 08/02/20 Principal diagnosis: LE CLI Interval history: Patient seen and examined Complains of slight only left foot pain Tolerating diet, Patient showed dizziness and unsteady gait with physical therapy We will continue to monitor Objective - Exam Narrative Exam: General appearance: Present: no acute distress, well-nourished - EENT Eyes: PERRL, EOM intact ENT: hearing intact, clear oral mucosa Ears: bilateral: normal - Neck Neck: supple, normal ROM - Respiratory Respiratory effort: normal Respiratory: bilateral: CTA - Breasts Breasts: normal - Cardiovascular Heart rate: 78 Rhythm: regular Heart Sounds: Present: S1 & S2. Absent: gallop, rub Extremities: pulses intact, No edema, normal color, Full ROM, abnormal (L foot TMA) Extremity abnormal: other (L foot TMA) - Gastrointestinal General gastrointestinal: Present: soft, non-tender, non-distended, normal bowel sounds - Genitourinary Male genitourinary: normal - Integumentary Integumentary: clear, warm, dry - Musculoskeletal Musculoskeletal: 1, strength equal bilaterally - Neurologic Neurologic: moves all extremities - Psychiatric Psychiatric: memory intact, appropriate mood/affect, intact judgment & insight - Constitutional Vitals: Vital Signs - 12hr 08/02/20 08/02/20 08/02/20 02:35 09:14 10:17 Temperature Pulse Rate 68 Pulse Rate [ 89 Anterior Bilateral Throughout] Respiratory 16 Rate Respiratory 20 Rate [Anterior Bilateral Throughout] Blood Pressure 91/37 Blood Pressure 89/49 [Left] O2 Sat by Pulse 90 Oximetry 08/02/20 11:30 Temperature 99.0 F Pulse Rate 71 Pulse Rate [ Anterior Bilateral Throughout] Respiratory 18 Rate Respiratory Rate [Anterior Bilateral Throughout] Blood Pressure 100/45 Blood Pressure [Left] O2 Sat by Pulse 93 Oximetry - Labs CBC & Chem 7: 08/04/20 04:21 08/04/20 04:21 Labs: Abnormal lab results 08/02/20 Range/Units 05:16 Sodium 136 L (137-145) mmol/L Potassium 3.5 L (3.6-5.0) mmol/L BUN 42 H (9-20) mg/dL Creatinine 3.6 H D (0.8-1.3) mg/dL Glucose 150 H (75-100) mg/dL
[2020-08-02] MEDS: oxyCODONE /ACETAMINOPHEN 5-325MG TAB PO PRN (17:59)
[2020-08-02] MEDS: ACETAMINOPHEN 325 MG TAB PO PRN (21:38)
[2020-08-03] MEDS: traZODone 50 MG TAB PO SCH ×2 (00:10→23:26)
[2020-08-03] MEDS: CILOSTAZOL 100 MG TAB PO SCH ×4 (00:12→23:27)
[2020-08-03] MEDS: MIDODRINE 5 MG TAB PO SCH ×4 (03:20→17:41)
[2020-08-03] MEDS: IPRATROPIUM/ALBUTEROL SULFATE 3 ML AMPUL.NEB IH SCH ×4 (03:48→21:04)
[2020-08-03] MEDS: CLINDAMYCIN 600 MG/50 mL 600 MG/50 ML BAG IV SCH ×2 (04:59→13:12)
[2020-08-03] MEDS: SODIUM CHLORIDE 0.9% 1000 ML 1,000 ML IV SCH ×2 (04:59→14:03)
[2020-08-03] MEDS: CLOPIDOGREL 75 MG TAB PO SCH (09:07)
[2020-08-03] MEDS: PANTOPRAZOLE 40 MG TAB PO SCH (09:07)
[2020-08-03] MEDS: APIXABAN 2.5 MG TAB PO SCH ×3 (09:07→23:27)
[2020-08-03] MEDS: THIAMINE 100 MG TAB PO SCH (09:07)
[2020-08-03] MEDS: FOLIC ACID 1 MG TAB PO SCH (09:07)
[2020-08-03] MEDS: DOCUSATE SODIUM 100 MG CAP PO SCH ×2 (09:07→23:26)
[2020-08-03] MEDS: carvediloL 12.5 MG TAB PO SCH (09:08)
[2020-08-03] MEDS: SPIRONOLACTONE 25 MG TAB PO SCH (09:08)
--- NOTE | 2020-08-03 10:20 | Consultation ---
History of Present Illness - Reason for Consult Consult date: 08/03/20 acute renal failure Requesting physician: IDALIA COTA - History of Present Illness The patient is a 64 YO male with history significant for Obesity, Hypertension, HLD and CAD s/p CABG who presented to [facility] ED 06/15 with discoloration and pain in the left great toe. Patient is a very poor historian. He denied any fever, chills, chest pain, shortness of breath, nausea, vomiting and no diarrhea. Foot x-ray revealed Left foot wound without radiographic evidence of osteomyelitis. Ultrasound of the left lower extremity revealed; Moderate scattered peripheral artery disease with diffusely dampened waveforms. There is suspected high-grade stenosis at the mid to distal SFA. Vascular surgeon was consulted who diagnosed him with Peripheral Vascular Disease with Left Foot Gangrene. He underwent Left Transmetatarsal Amputation on 07/30. Patient was suspected of CHF and was given IV Lasix on a daily basis. His BP has been low since yesterday. Creatinine level increased to 5.7. Nephrology was consulted for further evaluation. Past History Past Medical History: CAD, hypertension, hyperlipidemia, PVD, other (Left foot Gout) Past Surgical History: CABG, tonsillectomy, Other (Cyst removal on right side of chest) Social history: alcohol abuse, other (Uses marijuana) Medications and Allergies Allergies Allergy/AdvReac Type Severity Reaction Status Date / Time Penicillins Allergy Hives Verified 07/16/20 22:49 Home Medications Medication Instructions Recorded Confirmed Last Taken Type Acetaminophen [Tylenol] 325 mg PO Q6HR 07/17/20 07/17/20 Unknown History Acetaminophen/Codeine [Tylenol 1 tab PO Q4HR PRN 07/17/20 07/17/20 Unknown History /Codeine # 3 tab] AtorvaSTATin [Lipitor] 40 mg PO QHS 07/17/20 07/17/20 Unknown History Azithromycin [Zithromax Z-JENNA] 0 mg PO DAILY 07/17/20 07/17/20 Unknown History Clopidogrel [Plavix] 75 mg PO QDAY 07/17/20 07/17/20 Unknown History Folic Acid [Folvite] 1 mg PO QDAY 07/17/20 07/17/20 Unknown History Furosemide [Lasix TAB] 80 mg PO BID 07/17/20 07/17/20 Unknown History Metoprolol [Lopressor TAB] 50 mg PO BID 07/17/20 07/17/20 Unknown History Spironolactone [Aldactone] 25 mg PO QDAY 07/17/20 07/17/20 Unknown History Thiamine [Vitamin B-1] 100 mg PO QDAY 07/17/20 07/17/20 Unknown History guaiFENesin [Guaifenesin] 400 mg PO Q6HR 07/17/20 07/17/20 Unknown History lisinopriL [Zestril] 20 mg PO QDAY 07/17/20 07/17/20 Unknown History Active Meds: Active Medications Acetaminophen (Tylenol) 650 mg PO Q4H PRN PRN Reason: Pain MILD(1-3)/Fever >100.5/REYES Last Admin: 08/02/20 21:38 Dose: 650 mg Documented by: Albuterol/Ipratropium (Ipratropium/Albuterol Sulfate 3 Ml Ampul.Neb) 1 ampul IH Q6HRT [facility] Last Admin: 08/03/20 09:18 Dose: 1 ampul Documented by: Apixaban (Eliquis) 2.5 mg PO Q12HR [facility]; Protocol Last Admin: 08/03/20 09:07 Dose: 2.5 mg Documented by: Atorvastatin Calcium (Lipitor) 40 mg PO QHS [facility] Last Admin: 08/02/20 21:39 Dose: 40 mg Documented by: Cilostazol (Pletal) 100 mg PO BID [facility] Last Admin: 08/03/20 09:10 Dose: 100 mg Documented by: Clopidogrel Bisulfate (Plavix) 75 mg PO QDAY [facility] Last Admin: 08/03/20 09:07 Dose: 75 mg Documented by: Docusate Sodium (Colace) 100 mg PO BID [facility] Last Admin: 08/03/20 09:07 Dose: 100 mg Documented by: Folic Acid (Folvite) 1 mg PO QDAY [facility] Last Admin: 08/03/20 09:07 Dose: 1 mg Documented by: Hydralazine HCl (Apresoline) 10 mg IV Q6HR PRN PRN Reason: Blood Pressure Last Admin: 07/17/20 06:10 Dose: 10 mg Documented by: Hydromorphone HCl (Dilaudid) 0.5 mg IV Q10MIN PRN PRN Reason: Pain , Severe (7-10) Clindamycin HCl (Cleocin 600 Mg/50 Ml) 600 mg in 50 mls @ 100 mls/hr IV Q8HR [facility]; Protocol Stop: 08/04/20 09:59 Last Admin: 08/03/20 04:59 Dose: 100 mls/hr Documented by: Sodium Chloride (Nacl 0.9% 1000 Ml) 1,000 mls @ 100 mls/hr IV DIRECT DELFINO Last Admin: 08/03/20 04:59 Dose: 100 mls/hr Documented by: Labetalol HCl (Labetalol) 10 mg IV Q3H PRN PRN Reason: Blood Pressure Last Admin: 07/23/20 13:06 Dose: 10 mg Documented by: Lorazepam (Ativan) 1 mg PO QHS PRN PRN Reason: Sleep Last Admin: 07/31/20 22:04 Dose: 1 mg Documented by: Magnesium Hydroxide (Milk Of Magnesia) 30 ml PO Q4H PRN PRN Reason: Constipation Midodrine (Proamatine) 5 mg PO TID@0800,1200,1600 [facility] Last Admin: 08/03/20 09:08 Dose: 5 mg Documented by: Morphine Sulfate (Morphine) 2 mg IV Q4H PRN PRN Reason: Pain, Moderate (4-6) Last Admin: 08/01/20 10:37 Dose: 2 mg Documented by: Ondansetron HCl (Zofran) 4 mg IV Q8H PRN PRN Reason: Nausea And Vomiting Oxycodone/Acetaminophen (Percocet 5/325) 1 tab PO Q4H PRN PRN Reason: Pain, Moderate (4-6) Last Admin: 08/02/20 17:59 Dose: 1 tab Documented by: Pantoprazole Sodium (Protonix) 40 mg PO QDAC [facility] Last Admin: 08/03/20 09:07 Dose: 40 mg Documented by: Pseudoephedrine/Acetam/Chlorphenir (Robitussin Ac) 10 ml PO BID PRN PRN Reason: Cough Last Admin: 08/02/20 01:03 Dose: 10 ml Documented by: Sodium Chloride (Sodium Chloride Flush Syringe 10 Ml) 10 ml IV BID [facility] Last Admin: 08/03/20 09:10 Dose: 10 ml Documented by: Sodium Chloride (Sodium Chloride Flush Syringe 10 Ml) 10 ml IV PRN PRN PRN Reason: LINE FLUSH Thiamine HCl (Vitamin B-1) 100 mg PO QDAY [facility] Last Admin: 08/03/20 09:07 Dose: 100 mg Documented by: Trazodone HCl (Desyrel) 50 mg PO QHS [facility] Last Admin: 08/03/20 00:10 Dose: Not Given Documented by: Review of Systems ROS unobtainable: due to mental status Exam - Vital Signs Vital signs: Vital Signs Temp Pulse Resp BP Pulse Ox 97.4 F L 82 18 232/102 98 07/16/20 16:18 07/16/20 16:18 07/16/20 16:18 07/16/20 16:18 07/16/20 16:18 Results - Lab Results 07/24/20 05:05 08/03/20 05:02 Most recent lab results Calcium 8.0 mg/dL (8.4-10.2) L 08/03/20 05:02 Assessment and Plan 1. Acute kidney injury: Vasomotor nephropathy in the setting of hypotension. Urine studies and Renal US ordered. Continue IV fluids. Monitor renal function. Creatinine level is 5.7. Avoid nephrotoxic agents. Meds dosage based on GFR. 2. FEN: Hypokalemia, replete K. Monitor lytes and volume status. 3. 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 Followed by Vascular. 4. Peripheral vascular disease of lower extremity: S/p LLE revascularization done on 07/18 and 07/24. Continue antiplatelets and statin. 5. CAD (coronary artery disease): H/o CABG. On Plavix. 6. Hypotension: Midodrine. Monitor BP. 7. Hyperglycemia: Monitor. 8. Anemia, not POA. Subjective: Patient was seen and examined at the bedside. Examination: General appearance: well-developed, appears stated age, not in distress HEENT: Pupils reacting to light Neck: Trachea midline Respiratory: ctab Cardiology: regular, S1S2, no murmur Abdomen: soft, normoactive bowel sounds, no tenderness, ND Integumentary: L foot dressing Neurologic: confused, able to move extremities Ext: no edema
--- NOTE | 2020-08-03 16:04 | Progress Note ---
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 Post op doing well Patient was evaluated by surgery and cleared for discharge from surgical standpoint if patient is ambulatory s/p wound care eval PT recommended home health on discharge -- Cellulitis of foot, left being treated with IV abx adjust abx per wound cx - Left Surgical Culture showing Beta Hemolytic Strep Group B, Klebsiella Oxytoca, Enterobacter Cloacae -- Peripheral vascular disease of lower extremity LLE revascularization done on 07/18 and 07/24 Continue antiplatelets and statin -- HTN (hypertension) BP hypotensive now, will continue to hold antihypertensives --CAD (coronary artery disease) On Plavix, statin -- CHF (congestive heart failure), chronic diastolic and compensated 2D echo showed preserved EF We will hold the Lasix for now -- DVT prophylaxis On Heparin Daily course: 07/31: Resumed care. Status post TMA yesterday. Postop doing well. Plan for 2D echo today. We will continue to monitor. 08/01; Discharge pending on physical therapy clearance. Patient noted to have dizziness and unsteady gait with physical therapy today. We will continue to follow. We will discontinue Lasix today. Order BMP tomorrow. 08/02: Serum creatinine greater than 3 today, patient admitted with normal creatinine level. STEW developed likely due to overdiuresis. Will place on IV fluid, repeat BMP tomorrow morning if no improvement in 24-hour we will consult nephrology. 08/03: Cr 5.7 today, patient remains low hypotensive, d/c all BP meds. consult Nephrology. repeat BMP in the am. Subjective Date of service: 08/03/20 Principal diagnosis: LE CLI Interval history: Patient seen and examined Complains of slight only left foot pain Tolerating diet, Cr cont to trend up We will continue to monitor Objective - Exam Narrative Exam: General appearance: Present: no acute distress, well-nourished - EENT Eyes: PERRL, EOM intact ENT: hearing intact, clear oral mucosa Ears: bilateral: normal - Neck Neck: supple, normal ROM - Respiratory Respiratory effort: normal Respiratory: bilateral: CTA - Breasts Breasts: normal - Cardiovascular Heart rate: 78 Rhythm: regular Heart Sounds: Present: S1 & S2. Absent: gallop, rub Extremities: pulses intact, No edema, normal color, Full ROM, abnormal (L foot TMA) Extremity abnormal: other (L foot TMA) - Gastrointestinal General gastrointestinal: Present: soft, non-tender, non-distended, normal bowel sounds - Genitourinary Male genitourinary: normal - Integumentary Integumentary: clear, warm, dry - Musculoskeletal Musculoskeletal: 1, strength equal bilaterally - Neurologic Neurologic: moves all extremities - Psychiatric Psychiatric: memory intact, appropriate mood/affect, intact judgment & insight - Constitutional Vitals: Vital Signs - 12hr 08/03/20 08/03/20 08/03/20 04:18 06:31 12:13 Temperature 98.4 F 98.6 F 98.0 F Pulse Rate 70 69 78 Respiratory 16 12 17 Rate Blood Pressure 89/41 123/57 Blood Pressure 92/41 [Left] Blood Pressure 90/41 [Right] O2 Sat by Pulse 97 97 95 Oximetry - Labs CBC & Chem 7: 08/04/20 04:21 08/04/20 04:21 Labs: Abnormal lab results 08/03/20 08/03/20 08/03/20 Range/Units 00:37 05:02 07:58 Sodium 135 L (137-145) mmol/L Potassium 3.3 L (3.6-5.0) mmol/L Carbon Dioxide 20 L (22-30) mmol/L BUN 56 H (9-20) mg/dL Creatinine 5.7 H D (0.8-1.3) mg/dL Glucose 122 H (75-100) mg/dL POC Glucose 147 H 114 H (70-105) mg/dL Calcium 8.0 L (8.4-10.2) mg/dL
[2020-08-03] MEDS: oxyCODONE /ACETAMINOPHEN 5-325MG TAB PO PRN (20:48)
[2020-08-03] MEDS ORDERED: POTASSIUM CHLORIDE ER 20 MEQ TAB PO ONE (21:00)
[2020-08-04] MEDS: IPRATROPIUM/ALBUTEROL SULFATE 3 ML AMPUL.NEB IH SCH ×4 (02:35→20:20)
[2020-08-04 05:52] LABS: Basophils % (Auto) 0.2 % (0.0-1.8); Eosinophils % (Auto) 0.1 % (0.0-4.3); Hematocrit 20.3 % (35.5-45.6); Hemoglobin 6.8 gm/dl (11.8-15.2); Lymphocytes % (Auto) 5.8 % (13.4-35.0); Mean Corpuscular HGB Conc 33 % (32-34); Mean Corpuscular Volume 92 fl (84-94); Monocytes # (Auto) 1.3 K/mm3 (0.0-0.8); Monocytes % (Auto) 7.3 % (0.0-7.3); Platelet Count 384 K/mm3 (140-440); Red Blood Count 2.22 M/mm3 (3.65-5.03); Red Cell Distribution Width 15.9 % (13.2-15.2)
[2020-08-04 06:04] LABS: Calcium 8.4 mg/dL (8.4-10.2)
[2020-08-04] MEDS ORDERED: SODIUM CHLORIDE 0.9% 500 ML 500 ML IV SCH (09:00)
[2020-08-04] MEDS: FOLIC ACID 1 MG TAB PO SCH (09:36)
[2020-08-04] MEDS: PANTOPRAZOLE 40 MG TAB PO SCH (09:36)
[2020-08-04] MEDS: APIXABAN 2.5 MG TAB PO SCH (09:36)
[2020-08-04] MEDS: CLOPIDOGREL 75 MG TAB PO SCH (09:36)
[2020-08-04] MEDS: THIAMINE 100 MG TAB PO SCH (09:36)
[2020-08-04] MEDS: MIDODRINE 5 MG TAB PO SCH ×3 (09:36→16:57)
[2020-08-04] MEDS: DOCUSATE SODIUM 100 MG CAP PO SCH ×2 (09:36→21:35)
--- NOTE | 2020-08-04 09:46 | Progress Note ---
Assessment and Plan 1. Acute kidney injury: Vasomotor nephropathy in the setting of hypotension and obstructive Uropathy. Renal US showed bilateral hydronephrosis and distended bladder. Continue IV fluids. Monitor renal function. Creatinine level is 5.9. Renae catheter. Avoid nephrotoxic agents. Meds dosage based on GFR. 2. FEN: Hypokalemia, replete K. Monitor lytes and volume status. 3. Obstructive nephropathy: 2/2 bladder retention. Renae catheter. 4. 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 Followed by Vascular. 5. Peripheral vascular disease of lower extremity: S/p LLE revascularization done on 07/18 and 07/24. On Statin. 6. CAD (coronary artery disease): H/o CABG. 7. Hypotension: Midodrine. Monitor BP. 8. Hyperglycemia: Monitor. 9. Anemia, not POA. Subjective: Patient was seen and examined at the bedside. Examination: General appearance: well-developed, appears stated age, not in distress HEENT: Pupils reacting to light Neck: Trachea midline Respiratory: ctab Cardiology: regular, S1S2, no murmur Abdomen: soft, obese, normoactive bowel sounds, not tendernes Integumentary: L foot dressing Neurologic: confused, able to move extremities Ext: no edema Subjective Date of service: 08/04/20 Principal diagnosis: LE CLI Objective - Vital Signs Vital signs: Vital Signs - 12hr 08/04/20 08/04/20 08/04/20 02:35 03:45 07:57 Temperature 98.0 F Pulse Rate 78 Pulse Rate [ 84 85 Anterior Bilateral Throughout] Respiratory 20 Rate Respiratory 20 18 Rate [Anterior Bilateral Throughout] Blood Pressure 108/49 O2 Sat by Pulse 97 Oximetry - Lab 08/04/20 04:21 08/04/20 04:21 Most recent lab results Calcium 8.4 mg/dL (8.4-10.2) 08/04/20 04:21 Medications & Allergies - Medications Allergies/Adverse Reactions: Allergies Penicillins Allergy (Verified 07/16/20 22:49) Hives Home Medications: Home Medications Medication Instructions Recorded Confirmed Last Taken Type Acetaminophen [Tylenol] 325 mg PO Q6HR 07/17/20 07/17/20 Unknown History Acetaminophen/Codeine [Tylenol 1 tab PO Q4HR PRN 07/17/20 07/17/20 Unknown History /Codeine # 3 tab] AtorvaSTATin [Lipitor] 40 mg PO QHS 07/17/20 07/17/20 Unknown History Azithromycin [Zithromax Z-JENNA] 0 mg PO DAILY 07/17/20 07/17/20 Unknown History Clopidogrel [Plavix] 75 mg PO QDAY 07/17/20 07/17/20 Unknown History Folic Acid [Folvite] 1 mg PO QDAY 07/17/20 07/17/20 Unknown History Furosemide [Lasix TAB] 80 mg PO BID 07/17/20 07/17/20 Unknown History Metoprolol [Lopressor TAB] 50 mg PO BID 07/17/20 07/17/20 Unknown History Spironolactone [Aldactone] 25 mg PO QDAY 07/17/20 07/17/20 Unknown History Thiamine [Vitamin B-1] 100 mg PO QDAY 07/17/20 07/17/20 Unknown History guaiFENesin [Guaifenesin] 400 mg PO Q6HR 07/17/20 07/17/20 Unknown History lisinopriL [Zestril] 20 mg PO QDAY 07/17/20 07/17/20 Unknown History Active Medications: Generic Name Dose Route Start Last Admin Trade Name Freq PRN Reason Stop Dose Admin Acetaminophen 650 mg 07/17/20 00:20 08/02/20 21:38 Tylenol PO 650 mg Q4H PRN Administration Pain MILD(1-3)/Fever >100.5/REYES Albuterol/Ipratropium 1 ampul 08/02/20 10:00 08/04/20 07:56 Ipratropium/Albuterol Sulfate 3 Ml Ampul.Neb IH 1 ampul Q6HRT DELFINO Administration Apixaban 2.5 mg 07/25/20 22:00 08/04/20 09:36 Eliquis PO 2.5 mg Q12HR DELFINO Administration Protocol Atorvastatin Calcium 40 mg 07/31/20 22:00 08/03/20 23:27 Lipitor PO Not Given QHS DELFINO Cilostazol 100 mg 07/25/20 22:00 08/03/20 23:27 Pletal PO Not Given BID DELFINO Clopidogrel Bisulfate 75 mg 07/31/20 10:00 08/04/20 09:36 Plavix PO 75 mg QDAY DELFINO Administration Docusate Sodium 100 mg 07/22/20 22:00 08/04/20 09:36 Colace PO 100 mg BID DELFINO Administration Folic Acid 1 mg 07/31/20 10:00 08/04/20 09:36 Folvite PO 1 mg QDAY DELFINO Administration Hydralazine HCl 10 mg 07/17/20 02:24 07/17/20 06:10 Apresoline IV 10 mg Q6HR PRN Administration Blood Pressure Hydromorphone HCl 0.5 mg 07/30/20 13:33 Dilaudid IV Q10MIN PRN Pain , Severe (7-10) Sodium Chloride 1,000 mls @ 100 mls/hr 08/02/20 10:00 08/03/20 14:03 Nacl 0.9% 1000 Ml IV 100 mls/hr DIRECT DELFINO Administration Levofloxacin/Dextrose 500 mg in 100 mls @ 100 mls/hr 08/05/20 14:00 Levaquin 500mg/100ml IV Q48H DELFINO Protocol Sodium Chloride 500 mls @ 0 mls/hr 08/04/20 09:00 08/04/20 09:36 Nacl 0.9% 500 Ml IV 08/04/20 17:00 20 mls/hr ONCE DELFINO Administration As Directed Labetalol HCl 10 mg 07/17/20 17:20 07/23/20 13:06 Labetalol IV 10 mg Q3H PRN Administration Blood Pressure Lorazepam 1 mg 07/23/20 16:45 07/31/20 22:04 Ativan PO 1 mg QHS PRN Administration Sleep Magnesium Hydroxide 30 ml 07/17/20 00:20 Milk Of Magnesia PO Q4H PRN Constipation Midodrine 5 mg 08/02/20 03:00 08/04/20 09:36 Proamatine PO 5 mg TID@0800,1200,1600 DELFINO Administration Morphine Sulfate 2 mg 07/17/20 00:20 08/01/20 10:37 Morphine IV 2 mg Q4H PRN Administration Pain, Moderate (4-6) Ondansetron HCl 4 mg 07/17/20 00:20 Zofran IV Q8H PRN Nausea And Vomiting Oxycodone/Acetaminophen 1 tab 07/25/20 14:53 08/03/20 20:48 Percocet 5/325 PO 1 tab Q4H PRN Administration Pain, Moderate (4-6) Pantoprazole Sodium 40 mg 07/19/20 16:00 08/04/20 09:36 Protonix PO 40 mg QDAC DELFINO Administration Pseudoephedrine/Acetam/Chlorphenir 10 ml 07/20/20 18:21 08/02/20 01:03 Robitussin Ac PO 10 ml BID PRN Administration Cough Sodium Chloride 10 ml 07/17/20 10:00 08/04/20 09:37 Sodium Chloride Flush Syringe 10 Ml IV 10 ml BID DELFINO Administration Sodium Chloride 10 ml 07/17/20 00:20 Sodium Chloride Flush Syringe 10 Ml IV PRN PRN LINE FLUSH Thiamine HCl 100 mg 07/31/20 10:00 08/04/20 09:36 Vitamin B-1 PO 100 mg QDAY DELFINO Administration Trazodone HCl 50 mg 07/19/20 23:45 08/03/20 23:26 Desyrel PO Not Given QHS DELFINO
[2020-08-04] MEDS: CILOSTAZOL 100 MG TAB PO SCH ×2 (09:49→21:35)
--- NOTE | 2020-08-04 10:30 | XRay Report ---
CHEST 1 VIEW 08/04/2020 10:12 AM INDICATION / CLINICAL INFORMATION: SOB. COMPARISON: 08/02/20 FINDINGS: SUPPORT DEVICES: None. HEART / MEDIASTINUM: Stable. LUNGS / PLEURA: No significant pulmonary or pleural abnormality. No pneumothorax. ADDITIONAL FINDINGS: No significant additional findings. IMPRESSION: 1. No acute findings. No change. Signer Name: Hiren Gonzalez MD Signed: 08/04/2020 10:25 AM Workstation Name: [id number]
--- NOTE | 2020-08-04 10:38 | Progress Note ---
Assessment and Plan Given the patient's rising creatinine and reported difficulty breathing, chest x-ray was ordered and reviewed. This demonstrates no significant pulmonary edema. The patient likely has a component of dependent atelectasis given his bedbound status. He needs to get out of bed at least to the chair 3 times a day. Additionally, the patient has not yet received a walking shoe. He will need to be seen and evaluated by physical therapy to begin ambulation. Patient's creatinine continues to rise somewhat and he is being followed by [facility] hrology. Subjective Date of service: 08/04/20 Principal diagnosis: LE CLI Interval history: Patient is status post transmetatarsal amputation. Since his amputation on Thursday, the patient has not gotten out of bed. He does not have any specific complaints of pain. No complaints of shortness of breath. The patient does have mild productive cough. Objective - Constitutional Vitals: Vital Signs - 12hr 08/04/20 08/04/20 08/04/20 02:35 03:45 07:57 Temperature 98.0 F Pulse Rate 78 Pulse Rate [ 84 85 Anterior Bilateral Throughout] Respiratory 20 Rate Respiratory 20 18 Rate [Anterior Bilateral Throughout] Blood Pressure 108/49 O2 Sat by Pulse 97 Oximetry General appearance: Present: no acute distress - EENT Eyes: EOM intact ENT: hearing intact - Neck Neck: supple, normal ROM - Respiratory Respiratory effort: normal Extremities: abnormal - Gastrointestinal General gastrointestinal: Present: deferred Rectal Exam: deferred - Genitourinary Male genitourinary: deferred - Psychiatric Psychiatric: appropriate mood/affect, cooperative - Labs CBC & Chem 7: 08/04/20 04:21 08/04/20 04:21 Labs: Abnormal lab results 08/04/20 08/04/20 Range/Units 04:21 04:21 WBC 17.7 H (4.5-11.0) K/mm3 RBC 2.22 L (3.65-5.03) M/mm3 Hgb 6.8 L (11.8-15.2) gm/dl Hct 20.3 L (35.5-45.6) % RDW 15.9 H (13.2-15.2) % Lymph % (Auto) 5.8 L (13.4-35.0) % Lymph # (Auto) 1.0 L (1.2-5.4) K/mm3 [place] # (Auto) 1.3 H (0.0-0.8) K/mm3 Seg Neutrophils % 86.6 H (40.0-70.0) % Seg Neutrophils # 15.4 H (1.8-7.7) K/mm3 Sodium 134 L (137-145) mmol/L Carbon Dioxide 18 L (22-30) mmol/L BUN 70 H (9-20) mg/dL Creatinine 5.9 H (0.8-1.3) mg/dL Glucose 109 H (75-100) mg/dL Medications & Allergies - Medications Allergies/Adverse Reactions: Allergies Penicillins Allergy (Verified 07/16/20 22:49) Hives Home Medications: Home Medications Medication Instructions Recorded Confirmed Last Taken Type Acetaminophen [Tylenol] 325 mg PO Q6HR 07/17/20 07/17/20 Unknown History Acetaminophen/Codeine [Tylenol 1 tab PO Q4HR PRN 07/17/20 07/17/20 Unknown History /Codeine # 3 tab] AtorvaSTATin [Lipitor] 40 mg PO QHS 07/17/20 07/17/20 Unknown History Azithromycin [Zithromax Z-JENNA] 0 mg PO DAILY 07/17/20 07/17/20 Unknown History Clopidogrel [Plavix] 75 mg PO QDAY 07/17/20 07/17/20 Unknown History Folic Acid [Folvite] 1 mg PO QDAY 07/17/20 07/17/20 Unknown History Furosemide [Lasix TAB] 80 mg PO BID 07/17/20 07/17/20 Unknown History Metoprolol [Lopressor TAB] 50 mg PO BID 07/17/20 07/17/20 Unknown History Spironolactone [Aldactone] 25 mg PO QDAY 07/17/20 07/17/20 Unknown History Thiamine [Vitamin B-1] 100 mg PO QDAY 07/17/20 07/17/20 Unknown History guaiFENesin [Guaifenesin] 400 mg PO Q6HR 07/17/20 07/17/20 Unknown History lisinopriL [Zestril] 20 mg PO QDAY 07/17/20 07/17/20 Unknown History Active Medications: Generic Name Dose Route Start Last Admin Trade Name Freq PRN Reason Stop Dose Admin Acetaminophen 650 mg 07/17/20 00:20 08/02/20 21:38 Tylenol PO 650 mg Q4H PRN Administration Pain MILD(1-3)/Fever >100.5/REYES Albuterol/Ipratropium 1 ampul 08/02/20 10:00 08/04/20 07:56 Ipratropium/Albuterol Sulfate 3 Ml Ampul.Neb IH 1 ampul Q6HRT DELFINO Administration Apixaban 2.5 mg 07/25/20 22:00 08/04/20 09:36 Eliquis PO 2.5 mg Q12HR DELFINO Administration Protocol Atorvastatin Calcium 40 mg 07/31/20 22:00 08/03/20 23:27 Lipitor PO Not Given QHS DELFINO Cilostazol 100 mg 07/25/20 22:00 08/04/20 09:49 Pletal PO 100 mg BID DELFINO Administration Clopidogrel Bisulfate 75 mg 07/31/20 10:00 08/04/20 09:36 Plavix PO 75 mg QDAY DELFINO Administration Docusate Sodium 100 mg 07/22/20 22:00 08/04/20 09:36 Colace PO 100 mg BID DELFINO Administration Folic Acid 1 mg 07/31/20 10:00 08/04/20 09:36 Folvite PO 1 mg QDAY DELFINO Administration Hydralazine HCl 10 mg 07/17/20 02:24 07/17/20 06:10 Apresoline IV 10 mg Q6HR PRN Administration Blood Pressure Hydromorphone HCl 0.5 mg 07/30/20 13:33 Dilaudid IV Q10MIN PRN Pain , Severe (7-10) Sodium Chloride 1,000 mls @ 100 mls/hr 08/02/20 10:00 08/03/20 14:03 Nacl 0.9% 1000 Ml IV 100 mls/hr DIRECT DELFINO Administration Levofloxacin/Dextrose 500 mg in 100 mls @ 100 mls/hr 08/05/20 14:00 Levaquin 500mg/100ml IV Q48H DELFINO Protocol Sodium Chloride 500 mls @ 0 mls/hr 08/04/20 09:00 08/04/20 09:36 Nacl 0.9% 500 Ml IV 08/04/20 17:00 20 mls/hr ONCE DELFINO Administration As Directed Labetalol HCl 10 mg 07/17/20 17:20 07/23/20 13:06 Labetalol IV 10 mg Q3H PRN Administration Blood Pressure Lorazepam 1 mg 07/23/20 16:45 07/31/20 22:04 Ativan PO 1 mg QHS PRN Administration Sleep Magnesium Hydroxide 30 ml 07/17/20 00:20 Milk Of Magnesia PO Q4H PRN Constipation Midodrine 5 mg 08/02/20 03:00 08/04/20 09:36 Proamatine PO 5 mg TID@0800,1200,1600 DELFINO Administration Morphine Sulfate 2 mg 07/17/20 00:20 08/01/20 10:37 Morphine IV 2 mg Q4H PRN Administration Pain, Moderate (4-6) Ondansetron HCl 4 mg 07/17/20 00:20 Zofran IV Q8H PRN Nausea And Vomiting Oxycodone/Acetaminophen 1 tab 07/25/20 14:53 08/03/20 20:48 Percocet 5/325 PO 1 tab Q4H PRN Administration Pain, Moderate (4-6) Pantoprazole Sodium 40 mg 07/19/20 16:00 08/04/20 09:36 Protonix PO 40 mg QDAC DELFINO Administration Pseudoephedrine/Acetam/Chlorphenir 10 ml 07/20/20 18:21 08/02/20 01:03 Robitussin Ac PO 10 ml BID PRN Administration Cough Sodium Chloride 10 ml 07/17/20 10:00 08/04/20 09:37 Sodium Chloride Flush Syringe 10 Ml IV 10 ml BID DELFINO Administration Sodium Chloride 10 ml 07/17/20 00:20 Sodium Chloride Flush Syringe 10 Ml IV PRN PRN LINE FLUSH Thiamine HCl 100 mg 07/31/20 10:00 08/04/20 09:36 Vitamin B-1 PO 100 mg QDAY DELFINO Administration Trazodone HCl 50 mg 07/19/20 23:45 08/03/20 23:26 Desyrel PO Not Given QHS DELFINO
[2020-08-04 12:05] LABS: Creatinine,Urine 187.3 mg/dL (0.1-20.0)
[2020-08-04 12:10] LABS: Bilirubin,Urine NEG (Negative); Blood,Urine LG (Negative); Color,Urine Amber (Yellow)
--- NOTE | 2020-08-04 12:51 | Ultrasound Report ---
ULTRASOUND RENAL INDICATION / CLINICAL INFORMATION: Acute renal failure.. COMPARISON: None available. FINDINGS: RIGHT KIDNEY: Length = 13.2 cm. - Echogenicity: Normal. - Cortical Thickness: Normal. - Hydronephrosis: Mild to moderate right hydronephrosis. - Cyst or mass: No significant abnormality. - Stones: None seen. LEFT KIDNEY: Length = 11.9 cm. - Echogenicity: Normal. - Cortical Thickness: Normal. - Hydronephrosis: Mild to moderate right hydronephrosis. - Cyst or mass: No significant abnormality. - Stones: None seen. URINARY BLADDER: Markedly distended urinary bladder. Bladder measures 13.4 x 14.3 x 19.9 cm. This cor responds to about 3 L in volume. FREE FLUID: None. ADDITIONAL FINDINGS: None. IMPRESSION: 1. Bilateral hydronephrosis which could be related to markedly distended urinary bladder. Signer Name: Hiren Gonzalez MD Signed: 08/04/2020 12:46 PM Workstation Name: [id number]
--- NOTE | 2020-08-04 15:13 | Progress Note ---
Assessment and Plan --STEW, likely due to vasomotor nephropathy from overdiuresis vs postobstructive, not POA Lasix on hold now, cont on gentle IV fluid hydration, monitor BMP Bladder scan today showed urine retention with more than 1000ml Placed on Cabrales catheter today --Anemia likely due to acute blood loss Patient noted to develop hematuria We will hold antiplatelets and Eliquis Transfuse 1 unit of packed RB -- Gangrene of left foot s/p TMA 07/30 Post op doing well Patient was evaluated by surgery and cleared for discharge from surgical standpoint if patient is ambulatory s/p wound care eval PT recommended home health on discharge -- Cellulitis of foot, left being treated with IV abx adjust abx per wound cx Left Surgical Culture showing Beta Hemolytic Strep Group B, Klebsiella Oxytoca, Enterobacter Cloacae -- Peripheral vascular disease of lower extremity LLE revascularization done on 07/18 and 07/24 Continue antiplatelets and statin -- HTN (hypertension) BP hypotensive now, will continue to hold antihypertensives --CAD (coronary artery disease) On Plavix, statin -- CHF (congestive heart failure), chronic diastolic and compensated 2D echo showed preserved EF We will hold the Lasix for now -- DVT prophylaxis On Heparin Daily course: 07/31: Resumed care. Status post TMA yesterday. Postop doing well. Plan for 2D echo today. We will continue to monitor. 08/01; Discharge pending on physical therapy clearance. Patient noted to have dizziness and unsteady gait with physical therapy today. We will continue to follow. We will discontinue Lasix today. Order BMP tomorrow. 08/02: Serum creatinine greater than 3 today, patient admitted with normal creatinine level. STEW developed likely due to overdiuresis. Will place on IV fluid, repeat BMP tomorrow morning if no improvement in 24-hour we will consult nephrology. 08/03: Cr 5.7 today, patient remains low hypotensive, d/c all BP meds. consult Nephrology. repeat BMP in the am. 08/04: will place on cabrales catheter, assess for urine output, monitor ins and outs. Repeat BMP tomorrow morning. Will transfuse 1 units of packed RBC today. CBC tomorrow morning. Subjective Date of service: 08/04/20 Principal diagnosis: LE CLI Interval history: Patient seen and examined Complains of slight only left foot pain Tolerating diet, Cr cont to trend up bladder scan showed >1000ml urine retention - cabrales placed and drained bloody urine We will continue to monitor Objective - Exam Narrative Exam: General appearance: Present: no acute distress, well-nourished - EENT Eyes: PERRL, EOM intact ENT: hearing intact, clear oral mucosa Ears: bilateral: normal - Neck Neck: supple, normal ROM - Respiratory Respiratory effort: normal Respiratory: bilateral: CTA - Breasts Breasts: normal - Cardiovascular Heart rate: 78 Rhythm: regular Heart Sounds: Present: S1 & S2. Absent: gallop, rub Extremities: pulses intact, No edema, normal color, Full ROM, abnormal (L foot TMA) Extremity abnormal: other (L foot TMA) - Gastrointestinal General gastrointestinal: Present: soft, non-tender, non-distended, normal bowel sounds - Genitourinary Male genitourinary: cabrales with bloody urine - Integumentary Integumentary: clear, warm, dry - Musculoskeletal Musculoskeletal: 1, strength equal bilaterally - Neurologic Neurologic: moves all extremities - Psychiatric Psychiatric: memory intact, appropriate mood/affect, intact judgment & insight - Constitutional Vitals: Vital Signs - 12hr 08/04/20 08/04/20 08/04/20 03:45 07:57 10:59 Temperature 98.0 F 99.3 F Pulse Rate 78 84 Pulse Rate [ 85 Anterior Bilateral Throughout] Respiratory 20 18 Rate Respiratory 18 Rate [Anterior Bilateral Throughout] Blood Pressure 108/49 134/55 O2 Sat by Pulse 97 96 Oximetry 08/04/20 13:59 Temperature Pulse Rate Pulse Rate [ 90 Anterior Bilateral Throughout] Respiratory Rate Respiratory 19 Rate [Anterior Bilateral Throughout] Blood Pressure O2 Sat by Pulse Oximetry - Labs CBC & Chem 7: 08/05/20 10:29 08/05/20 08:02 Labs: Abnormal lab results 08/04/20 08/04/20 08/04/20 Range/Units 04:21 04:21 12:21 WBC 17.7 H (4.5-11.0) K/mm3 RBC 2.22 L (3.65-5.03) M/mm3 Hgb 6.8 L (11.8-15.2) gm/dl Hct 20.3 L (35.5-45.6) % RDW 15.9 H (13.2-15.2) % Lymph % (Auto) 5.8 L (13.4-35.0) % Lymph # (Auto) 1.0 L (1.2-5.4) K/mm3 [place] # (Auto) 1.3 H (0.0-0.8) K/mm3 Seg Neutrophils % 86.6 H (40.0-70.0) % Seg Neutrophils # 15.4 H (1.8-7.7) K/mm3 Sodium 134 L (137-145) mmol/L Carbon Dioxide 18 L (22-30) mmol/L BUN 70 H (9-20) mg/dL Creatinine 5.9 H (0.8-1.3) mg/dL Glucose 109 H (75-100) mg/dL Urine WBC (Auto) (0.0-6.0) /HPF Urine Creatinine (0.1-20.0) mg/dL Crossmatch See Detail 08/04/20 08/04/20 Range/Units Unknown Unknown WBC (4.5-11.0) K/mm3 RBC (3.65-5.03) M/mm3 Hgb (11.8-15.2) gm/dl Hct (35.5-45.6) % RDW (13.2-15.2) % Lymph % (Auto) (13.4-35.0) % Lymph # (Auto) (1.2-5.4) K/mm3 [place] # (Auto) (0.0-0.8) K/mm3 Seg Neutrophils % (40.0-70.0) % Seg Neutrophils # (1.8-7.7) K/mm3 Sodium (137-145) mmol/L Carbon Dioxide (22-30) mmol/L BUN (9-20) mg/dL Creatinine (0.8-1.3) mg/dL Glucose (75-100) mg/dL Urine WBC (Auto) 21.0 H (0.0-6.0) /HPF Urine Creatinine 187.3 H (0.1-20.0) mg/dL Crossmatch
[2020-08-04] MEDS: ACETAMINOPHEN 325 MG TAB PO PRN (18:33)
--- NOTE | 2020-08-04 19:28 | Cat Scan Report ---
CT ABDOMEN AND PELVIS WITHOUT CONTRAST INDICATION / CLINICAL INFORMATION: primo postobstructive. TECHNIQUE: Axial CT images were obtained through the abdomen and pelvis without IV contrast. All CT scans at this location are performed using CT dose reduction for ALARA by means of automated exposure control. COMPARISON: Ultrasound renal from earlier in the day. CT dated 07/20/20 FINDINGS: LOWER CHEST: Mild bibasilar atelectasis. LIVER: No significant abnormality. GALLBLADDER: Small calcified gallstones are unchanged. No inflammation. BILE DUCTS: No significant abnormality. PANCREAS: No significant abnormality. SPLEEN: No significant abnormality. ADRENALS: No significant abnormality. RIGHT KIDNEY / URETER: Mild hydroureteronephrosis with no obstructing stone. Small hyperdense cyst on the upper pole is unchanged. LEFT KIDNEY / URETER: Mild hydroureteronephrosis with no obstructing stone. STOMACH / SMALL BOWEL: No significant abnormality. COLON: Diverticulosis without acute inflammation. APPENDIX: No significant abnormality. PERITONEUM: No free fluid. No free air. No fluid collection. LYMPH NODES: No significant adenopathy. AORTA / ARTERIES: Mild atherosclerotic calcification without acute abnormality. IVC / VEINS: No significant abnormality. URINARY BLADDER: Bladder is markedly thickened and collapsed around a Renae catheter. There is mild t o moderate pericystic inflammation. REPRODUCTIVE ORGANS: No significant abnormality. ADDITIONAL FINDINGS: None. SKELETAL SYSTEM: No significant abnormality. IMPRESSION: 1. Interval placement of Renae catheter into the urinary bladder since ultrasound earlier in the day with decompression. Urinary bladder is thickened and inflamed possibly related to cystitis or UTI. 2. Mild residual bilateral hydroureteronephrosis without obstructing stone. Findings may relate to pr eviously distended urinary bladder. 3. Cholelithiasis. Signer Name: Hiren Gonzalez MD Signed: 08/04/2020 7:23 PM Workstation Name: [id number]
[2020-08-04] MEDS: traZODone 50 MG TAB PO SCH (21:35)
[2020-08-05] MEDS: IPRATROPIUM/ALBUTEROL SULFATE 3 ML AMPUL.NEB IH SCH ×4 (02:30→20:19)
[2020-08-05] MEDS: SODIUM CHLORIDE 0.9% 1000 ML 1,000 ML IV SCH ×2 (06:13→17:15)
[2020-08-05 08:56] LABS: Calcium 8.4 mg/dL (8.4-10.2)
[2020-08-05] MEDS: PANTOPRAZOLE 40 MG TAB PO SCH (09:18)
[2020-08-05] MEDS: CILOSTAZOL 100 MG TAB PO SCH ×2 (09:18→22:29)
[2020-08-05] MEDS: FOLIC ACID 1 MG TAB PO SCH (09:18)
[2020-08-05] MEDS: THIAMINE 100 MG TAB PO SCH (09:18)
[2020-08-05] MEDS: DOCUSATE SODIUM 100 MG CAP PO SCH ×2 (09:19→22:30)
[2020-08-05] MEDS: MIDODRINE 5 MG TAB PO SCH ×3 (09:19→17:12)
--- NOTE | 2020-08-05 09:54 | Progress Note ---
Assessment and Plan Patient is doing well from a vascular standpoint. He will need to have a walking boot placed so that he can ambulate. Additionally, physical therapy will need to assess the patient to determine any additional needs. The patient will need to follow-up with an outpatient urologist. Once he is ambulatory, the patient may be discharged home from a vascular point of view. Subjective Date of service: 08/05/20 Principal diagnosis: LE CLI Interval history: Patient doing well today. His creatinine is normalized following placement of a Renae. The patient does admit to occasional nocturia. He is not yet been evaluated by an outpatient urologist. Patient's TMA site is intact. Dressing change. Patient stated that even though he has not yet had a walking boot brought to his room he did get up and weight-bear on his foot/heel yesterday. No complaints of pain at the TMA site. Objective - Constitutional Vitals: Vital Signs - 12hr 08/04/20 08/05/20 08/05/20 21:52 00:19 02:30 Temperature 98.7 F Pulse Rate 89 80 Pulse Rate [ 84 Anterior Bilateral Throughout] Respiratory 18 Rate Respiratory 18 Rate [Anterior Bilateral Throughout] Blood Pressure 127/53 O2 Sat by Pulse 97 96 Oximetry 08/05/20 08/05/20 05:43 08:00 Temperature 99.2 F Pulse Rate 88 Pulse Rate [ 87 Anterior Bilateral Throughout] Respiratory 18 Rate Respiratory 17 Rate [Anterior Bilateral Throughout] Blood Pressure 143/58 O2 Sat by Pulse 93 Oximetry General appearance: Present: no acute distress - EENT Eyes: EOM intact ENT: hearing intact - Neck Neck: supple, normal ROM - Respiratory Respiratory effort: normal Extremities: abnormal - Gastrointestinal General gastrointestinal: Present: deferred Rectal Exam: deferred - Genitourinary Male genitourinary: deferred - Psychiatric Psychiatric: appropriate mood/affect, cooperative - Labs CBC & Chem 7: 08/04/20 04:21 08/05/20 08:02 Labs: Abnormal lab results 08/04/20 08/04/20 08/04/20 Range/Units 12:21 Unknown Unknown Potassium (3.6-5.0) mmol/L BUN (9-20) mg/dL Glucose (75-100) mg/dL Urine WBC (Auto) 21.0 H (0.0-6.0) /HPF Urine Creatinine 187.3 H (0.1-20.0) mg/dL Crossmatch See Detail 08/05/20 Range/Units 08:02 Potassium 3.4 L (3.6-5.0) mmol/L BUN 24 H (9-20) mg/dL Glucose 227 H (75-100) mg/dL Urine WBC (Auto) (0.0-6.0) /HPF Urine Creatinine (0.1-20.0) mg/dL Crossmatch Medications & Allergies - Medications Allergies/Adverse Reactions: Allergies Penicillins Allergy (Verified 07/16/20 22:49) Hives Home Medications: Home Medications Medication Instructions Recorded Confirmed Last Taken Type Acetaminophen [Tylenol] 325 mg PO Q6HR 07/17/20 07/17/20 Unknown History Acetaminophen/Codeine [Tylenol 1 tab PO Q4HR PRN 07/17/20 07/17/20 Unknown History /Codeine # 3 tab] AtorvaSTATin [Lipitor] 40 mg PO QHS 07/17/20 07/17/20 Unknown History Azithromycin [Zithromax Z-JENNA] 0 mg PO DAILY 07/17/20 07/17/20 Unknown History Clopidogrel [Plavix] 75 mg PO QDAY 07/17/20 07/17/20 Unknown History Folic Acid [Folvite] 1 mg PO QDAY 07/17/20 07/17/20 Unknown History Furosemide [Lasix TAB] 80 mg PO BID 07/17/20 07/17/20 Unknown History Metoprolol [Lopressor TAB] 50 mg PO BID 07/17/20 07/17/20 Unknown History Spironolactone [Aldactone] 25 mg PO QDAY 07/17/20 07/17/20 Unknown History Thiamine [Vitamin B-1] 100 mg PO QDAY 07/17/20 07/17/20 Unknown History guaiFENesin [Guaifenesin] 400 mg PO Q6HR 07/17/20 07/17/20 Unknown History lisinopriL [Zestril] 20 mg PO QDAY 07/17/20 07/17/20 Unknown History Active Medications: Generic Name Dose Route Start Last Admin Trade Name Freq PRN Reason Stop Dose Admin Acetaminophen 650 mg 07/17/20 00:20 08/04/20 18:33 Tylenol PO 650 mg Q4H PRN Administration Pain MILD(1-3)/Fever >100.5/REYES Albuterol/Ipratropium 1 ampul 08/02/20 10:00 08/05/20 08:26 Ipratropium/Albuterol Sulfate 3 Ml Ampul.Neb IH 1 ampul Q6HRT DELFINO Administration Atorvastatin Calcium 40 mg 07/31/20 22:00 08/04/20 21:35 Lipitor PO 40 mg QHS DELFINO Administration Cilostazol 100 mg 07/25/20 22:00 08/05/20 09:18 Pletal PO 100 mg BID DELFINO Administration Docusate Sodium 100 mg 07/22/20 22:00 08/05/20 09:19 Colace PO Not Given BID DELFINO Folic Acid 1 mg 07/31/20 10:00 08/05/20 09:18 Folvite PO 1 mg QDAY DELFINO Administration Hydralazine HCl 10 mg 07/17/20 02:24 07/17/20 06:10 Apresoline IV 10 mg Q6HR PRN Administration Blood Pressure Hydromorphone HCl 0.5 mg 07/30/20 13:33 Dilaudid IV Q10MIN PRN Pain , Severe (7-10) Sodium Chloride 1,000 mls @ 100 mls/hr 08/02/20 10:00 08/05/20 06:13 Nacl 0.9% 1000 Ml IV 100 mls/hr DIRECT DELFINO Administration Levofloxacin/Dextrose 750 mg in 150 mls @ 100 mls/hr 08/05/20 10:00 Levaquin 750mg/150ml IV Q24H [facility] Protocol Labetalol HCl 10 mg 07/17/20 17:20 07/23/20 13:06 Labetalol IV 10 mg Q3H PRN Administration Blood Pressure Lorazepam 1 mg 07/23/20 16:45 07/31/20 22:04 Ativan PO 1 mg QHS PRN Administration Sleep Magnesium Hydroxide 30 ml 07/17/20 00:20 Milk Of Magnesia PO Q4H PRN Constipation Midodrine 5 mg 08/02/20 03:00 08/05/20 09:19 Proamatine PO 5 mg TID@0800,1200,1600 DELFINO Administration Morphine Sulfate 2 mg 07/17/20 00:20 08/01/20 10:37 Morphine IV 2 mg Q4H PRN Administration Pain, Moderate (4-6) Ondansetron HCl 4 mg 07/17/20 00:20 Zofran IV Q8H PRN Nausea And Vomiting Oxycodone/Acetaminophen 1 tab 07/25/20 14:53 08/03/20 20:48 Percocet 5/325 PO 1 tab Q4H PRN Administration Pain, Moderate (4-6) Pantoprazole Sodium 40 mg 07/19/20 16:00 08/05/20 09:18 Protonix PO 40 mg QDAC DELFINO Administration Pseudoephedrine/Acetam/Chlorphenir 10 ml 07/20/20 18:21 08/02/20 01:03 Robitussin Ac PO 10 ml BID PRN Administration Cough Sodium Chloride 10 ml 07/17/20 10:00 08/05/20 09:19 Sodium Chloride Flush Syringe 10 Ml IV Not Given BID DELFINO Sodium Chloride 10 ml 07/17/20 00:20 Sodium Chloride Flush Syringe 10 Ml IV PRN PRN LINE FLUSH Thiamine HCl 100 mg 07/31/20 10:00 08/05/20 09:18 Vitamin B-1 PO 100 mg QDAY DELFINO Administration Trazodone HCl 50 mg 07/19/20 23:45 08/04/20 21:35 Desyrel PO 50 mg QHS DELFINO Administration
--- NOTE | 2020-08-05 10:34 | Progress Note ---
Assessment and Plan 1. Acute kidney injury: Vasomotor nephropathy in the setting of hypotension and obstructive Uropathy. Renal US showed bilateral hydronephrosis and distended bladder. Continue IV fluids. Monitor renal function. Creatinine level is 1.3 from 5.9. Avoid nephrotoxic agents. Meds dosage based on GFR. 2. FEN: Hypokalemia, replete K. Monitor lytes and volume status. 3. Obstructive nephropathy: 2/2 bladder retention. S/p Cabrales catheter. 4. 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 Followed by Vascular. 5. Peripheral vascular disease of lower extremity: S/p LLE revascularization done on 07/18 and 07/24. On Statin. 6. CAD (coronary artery disease): H/o CABG. 7. Hypotension: Midodrine. Monitor BP. 8. Hyperglycemia: Monitor. 9. Anemia, not POA. Subjective: Patient was seen and examined at the bedside. Doing ok. Examination: General appearance: well-developed, appears stated age, not in distress HEENT: Pupils reacting to light Neck: Trachea midline Respiratory: ctab Cardiology: regular, S1S2, no murmur Abdomen: soft, obese, normoactive bowel sounds, not tender Integumentary: L foot dressing Neurologic: confused, able to move extremities Ext: no edema : cabrales catheter Subjective Date of service: 08/05/20 Principal diagnosis: LE CLI Objective - Vital Signs Vital signs: Vital Signs - 12hr 08/05/20 08/05/20 08/05/20 00:19 02:30 05:43 Temperature 98.7 F 99.2 F Pulse Rate 80 88 Pulse Rate [ 84 Anterior Bilateral Throughout] Respiratory 18 18 Rate Respiratory 18 Rate [Anterior Bilateral Throughout] Blood Pressure 127/53 143/58 O2 Sat by Pulse 96 93 Oximetry 08/05/20 08:00 Temperature Pulse Rate Pulse Rate [ 87 Anterior Bilateral Throughout] Respiratory Rate Respiratory 17 Rate [Anterior Bilateral Throughout] Blood Pressure O2 Sat by Pulse Oximetry - Lab 08/05/20 10:29 08/05/20 08:02 Most recent lab results Calcium 8.4 mg/dL (8.4-10.2) 08/05/20 08:02 Urine Creatinine 187.3 mg/dL (0.1-20.0) H 08/04/20 Unknown Urine Sodium 33 mmol/L 08/04/20 Unknown Medications & Allergies - Medications Allergies/Adverse Reactions: Allergies Penicillins Allergy (Verified 07/16/20 22:49) Hives Home Medications: Home Medications Medication Instructions Recorded Confirmed Last Taken Type Acetaminophen [Tylenol] 325 mg PO Q6HR 07/17/20 07/17/20 Unknown History Acetaminophen/Codeine [Tylenol 1 tab PO Q4HR PRN 07/17/20 07/17/20 Unknown History /Codeine # 3 tab] AtorvaSTATin [Lipitor] 40 mg PO QHS 07/17/20 07/17/20 Unknown History Azithromycin [Zithromax Z-JENNA] 0 mg PO DAILY 07/17/20 07/17/20 Unknown History Clopidogrel [Plavix] 75 mg PO QDAY 07/17/20 07/17/20 Unknown History Folic Acid [Folvite] 1 mg PO QDAY 07/17/20 07/17/20 Unknown History Furosemide [Lasix TAB] 80 mg PO BID 07/17/20 07/17/20 Unknown History Metoprolol [Lopressor TAB] 50 mg PO BID 07/17/20 07/17/20 Unknown History Spironolactone [Aldactone] 25 mg PO QDAY 07/17/20 07/17/20 Unknown History Thiamine [Vitamin B-1] 100 mg PO QDAY 07/17/20 07/17/20 Unknown History guaiFENesin [Guaifenesin] 400 mg PO Q6HR 07/17/20 07/17/20 Unknown History lisinopriL [Zestril] 20 mg PO QDAY 07/17/20 07/17/20 Unknown History Active Medications: Generic Name Dose Route Start Last Admin Trade Name Freq PRN Reason Stop Dose Admin Acetaminophen 650 mg 07/17/20 00:20 08/04/20 18:33 Tylenol PO 650 mg Q4H PRN Administration Pain MILD(1-3)/Fever >100.5/REYES Albuterol/Ipratropium 1 ampul 08/02/20 10:00 08/05/20 08:26 Ipratropium/Albuterol Sulfate 3 Ml Ampul.Neb IH 1 ampul Q6HRT DELFINO Administration Atorvastatin Calcium 40 mg 07/31/20 22:00 08/04/20 21:35 Lipitor PO 40 mg QHS DELFINO Administration Cilostazol 100 mg 07/25/20 22:00 08/05/20 09:18 Pletal PO 100 mg BID DELFINO Administration Docusate Sodium 100 mg 07/22/20 22:00 08/05/20 09:19 Colace PO Not Given BID [facility] Folic Acid 1 mg 07/31/20 10:00 08/05/20 09:18 Folvite PO 1 mg QDAY DELFINO Administration Hydralazine HCl 10 mg 07/17/20 02:24 07/17/20 06:10 Apresoline IV 10 mg Q6HR PRN Administration Blood Pressure Hydromorphone HCl 0.5 mg 07/30/20 13:33 Dilaudid IV Q10MIN PRN Pain , Severe (7-10) Sodium Chloride 1,000 mls @ 100 mls/hr 08/02/20 10:00 08/05/20 06:13 Nacl 0.9% 1000 Ml IV 100 mls/hr DIRECT DELFINO Administration Levofloxacin/Dextrose 750 mg in 150 mls @ 100 mls/hr 08/05/20 10:00 08/05/20 10:16 Levaquin 750mg/150ml IV 100 mls/hr Q24H DELFINO Administration Protocol Labetalol HCl 10 mg 07/17/20 17:20 07/23/20 13:06 Labetalol IV 10 mg Q3H PRN Administration Blood Pressure Lorazepam 1 mg 07/23/20 16:45 07/31/20 22:04 Ativan PO 1 mg QHS PRN Administration Sleep Magnesium Hydroxide 30 ml 07/17/20 00:20 Milk Of Magnesia PO Q4H PRN Constipation Midodrine 5 mg 08/02/20 03:00 08/05/20 09:19 Proamatine PO 5 mg TID@0800,1200,1600 DELFINO Administration Morphine Sulfate 2 mg 07/17/20 00:20 08/01/20 10:37 Morphine IV 2 mg Q4H PRN Administration Pain, Moderate (4-6) Ondansetron HCl 4 mg 07/17/20 00:20 Zofran IV Q8H PRN Nausea And Vomiting Oxycodone/Acetaminophen 1 tab 07/25/20 14:53 08/03/20 20:48 Percocet 5/325 PO 1 tab Q4H PRN Administration Pain, Moderate (4-6) Pantoprazole Sodium 40 mg 07/19/20 16:00 08/05/20 09:18 Protonix PO 40 mg QDAC DELFINO Administration Pseudoephedrine/Acetam/Chlorphenir 10 ml 07/20/20 18:21 08/02/20 01:03 Robitussin Ac PO 10 ml BID PRN Administration Cough Sodium Chloride 10 ml 07/17/20 10:00 08/05/20 09:19 Sodium Chloride Flush Syringe 10 Ml IV Not Given BID DELFINO Sodium Chloride 10 ml 07/17/20 00:20 Sodium Chloride Flush Syringe 10 Ml IV PRN PRN LINE FLUSH Thiamine HCl 100 mg 07/31/20 10:00 08/05/20 09:18 Vitamin B-1 PO 100 mg QDAY DELFINO Administration Trazodone HCl 50 mg 07/19/20 23:45 08/04/20 21:35 Desyrel PO 50 mg QHS DELFINO Administration
[2020-08-05] MEDS ORDERED: POTASSIUM CHLORIDE ER 20 MEQ TAB PO SCH (11:00)
[2020-08-05 11:03] LABS: Hematocrit 26.1 % (35.5-45.6); Hemoglobin 8.5 gm/dl (11.8-15.2)
--- NOTE | 2020-08-05 13:34 | Progress Note ---
Assessment and Plan --STEW, likely due to postobstructive uropathy, not POA Lasix on hold now, cont on gentle IV fluid hydration, monitor BMP Bladder scan showed urine retention with more than 1000ml Placed on Cabrales catheter with improvement of renal function --Anemia likely due to acute blood loss Patient noted to develop hematuria We will hold antiplatelets and Eliquis Transfuse 1 unit of packed RB --Urinary retention, status post Cabrales placed CT abdomen pelvis showed bladder wall thickness Likely from BPH, urology f/u outpt -- Gangrene of left foot s/p TMA 07/30 Post op doing well Patient was evaluated by surgery and cleared for discharge from surgical standpoint if patient is ambulatory s/p wound care eval PT recommended home health on discharge -- Cellulitis of foot, left being treated with IV abx adjust abx per wound cx Left Surgical Culture showing Beta Hemolytic Strep Group B, Klebsiella Oxytoca, Enterobacter [place] -- Peripheral vascular disease of lower extremity LLE revascularization done on 07/18 and 07/24 Continue antiplatelets and statin -- HTN (hypertension) BP hypotensive now, will continue to hold antihypertensives --CAD (coronary artery disease) On Plavix, statin -- CHF (congestive heart failure), chronic diastolic and compensated 2D echo showed preserved EF We will hold the Lasix for now -- DVT prophylaxis On Heparin Daily course: 07/31: Resumed care. Status post TMA yesterday. Postop doing well. Plan for 2D echo today. We will continue to monitor. 08/01; Discharge pending on physical therapy clearance. Patient noted to have dizziness and unsteady gait with physical therapy today. We will continue to follow. We will discontinue Lasix today. Order BMP tomorrow. 08/02: Serum creatinine greater than 3 today, patient admitted with normal creatinine level. STEW developed likely due to overdiuresis. Will place on IV fluid, repeat BMP tomorrow morning if no improvement in 24-hour we will consult nephrology. 08/03: Cr 5.7 today, patient remains low hypotensive, d/c all BP meds. consult Nephrology. repeat BMP in the am. 08/04: will place on cabrales catheter, assess for urine output, monitor ins and outs. Repeat BMP tomorrow morning. Will transfuse 1 units of packed RBC today. CBC tomorrow morning. 08/05: Cr improved today, H&H stable after transfusing 1 unit of packed RBC. Continue to monitor BMP and H&H. Noted CT abdomen pelvis result. Continue antibiotic for UTI and left foot cellulitis. Subjective Date of service: 08/05/20 Principal diagnosis: LE CLI Interval history: Patient seen and examined Complains of slight only left foot pain Tolerating diet, Cr trending down We will continue to monitor Objective - Exam Narrative Exam: General appearance: Present: no acute distress, well-nourished - EENT Eyes: PERRL, EOM intact ENT: hearing intact, clear oral mucosa Ears: bilateral: normal - Neck Neck: supple, normal ROM - Respiratory Respiratory effort: normal Respiratory: bilateral: CTA - Breasts Breasts: normal - Cardiovascular Heart rate: 78 Rhythm: regular Heart Sounds: Present: S1 & S2. Absent: gallop, rub Extremities: pulses intact, No edema, normal color, Full ROM, abnormal (L foot TMA) Extremity abnormal: other (L foot TMA) - Gastrointestinal General gastrointestinal: Present: soft, non-tender, non-distended, normal bowel sounds - Genitourinary Male genitourinary: cabrales with bloody urine - Integumentary Integumentary: clear, warm, dry - Musculoskeletal Musculoskeletal: 1, strength equal bilaterally - Neurologic Neurologic: moves all extremities - Psychiatric Psychiatric: memory intact, appropriate mood/affect, intact judgment & insight - Constitutional Vitals: Vital Signs - 12hr 08/05/20 08/05/20 08/05/20 02:30 05:43 08:00 Temperature 99.2 F Pulse Rate 88 Pulse Rate [ 84 87 Anterior Bilateral Throughout] Respiratory 18 Rate Respiratory 18 17 Rate [Anterior Bilateral Throughout] Blood Pressure 143/58 O2 Sat by Pulse 93 Oximetry 08/05/20 11:33 Temperature 99.1 F Pulse Rate 83 Pulse Rate [ Anterior Bilateral Throughout] Respiratory 20 Rate Respiratory Rate [Anterior Bilateral Throughout] Blood Pressure 169/73 O2 Sat by Pulse 97 Oximetry - Labs CBC & Chem 7: 08/05/20 10:29 08/06/20 07:52 Labs: Abnormal lab results 08/04/20 08/05/20 08/05/20 Range/Units 12:21 08:02 10:29 Hgb 8.5 L (11.8-15.2) gm/dl Hct 26.1 L (35.5-45.6) % Potassium 3.4 L (3.6-5.0) mmol/L BUN 24 H (9-20) mg/dL Glucose 227 H (75-100) mg/dL Crossmatch See Detail
[2020-08-05] MEDS: oxyCODONE /ACETAMINOPHEN 5-325MG TAB PO PRN (17:54)
[2020-08-05] MEDS: traZODone 50 MG TAB PO SCH (22:29)
[2020-08-06] MEDS: IPRATROPIUM/ALBUTEROL SULFATE 3 ML AMPUL.NEB IH SCH ×3 (03:44→15:14)
--- NOTE | 2020-08-06 08:44 | Progress Note ---
Assessment and Plan 1. Acute kidney injury: Vasomotor nephropathy in the setting of hypotension and obstructive Uropathy. Renal US showed bilateral hydronephrosis and distended bladder. Continue IV fluids. Monitor renal function. Creatinine level is 0.8 from 1.3 from 5.9. Avoid nephrotoxic agents. Meds dosage based on GFR. 2. FEN: Hypokalemia, K level is better. Monitor lytes and volume status. 3. Obstructive nephropathy: 2/2 bladder retention. S/p Cabrales catheter. 4. 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 Followed by Vascular. 5. Peripheral vascular disease of lower extremity: S/p LLE revascularization done on 07/18 and 07/24. On Statin. 6. CAD (coronary artery disease): H/o CABG. 7. Hypotension: Midodrine. Monitor BP. 8. Hyperglycemia: Monitor. 9. Anemia, not POA. Subjective: Patient was seen and examined at the bedside. Doing ok. Examination: General appearance: well-developed, appears stated age, not in distress HEENT: Pupils reacting to light Neck: Trachea midline Respiratory: ctab Cardiology: regular, S1S2, no murmur Abdomen: soft, obese, normoactive bowel sounds, not tender Integumentary: L foot dressing Neurologic: confused, able to move extremities Ext: no edema : cabrales catheter Subjective Date of service: 08/06/20 Principal diagnosis: LE CLI Objective - Vital Signs Vital signs: Vital Signs - 12hr 08/05/20 08/06/20 22:45 05:16 Temperature 97.9 F 99.0 F Pulse Rate 85 93 H Respiratory 20 20 Rate Blood Pressure 172/71 161/59 O2 Sat by Pulse 96 93 Oximetry - Lab 08/05/20 10:29 08/06/20 07:52 Most recent lab results Calcium 8.4 mg/dL (8.4-10.2) 08/05/20 08:02 Urine Creatinine 187.3 mg/dL (0.1-20.0) H 08/04/20 Unknown Urine Sodium 33 mmol/L 08/04/20 Unknown Medications & Allergies - Medications Allergies/Adverse Reactions: Allergies Penicillins Allergy (Verified 07/16/20 22:49) Hives Home Medications: Home Medications Medication Instructions Recorded Confirmed Last Taken Type AtorvaSTATin [Lipitor] 40 mg PO QHS 07/17/20 07/17/20 Unknown History Clopidogrel [Plavix] 75 mg PO QDAY 07/17/20 07/17/20 Unknown History Folic Acid [Folvite] 1 mg PO QDAY 07/17/20 07/17/20 Unknown History Metoprolol [Lopressor TAB] 50 mg PO BID 07/17/20 07/17/20 Unknown History Thiamine [Vitamin B-1] 100 mg PO QDAY 07/17/20 07/17/20 Unknown History Pantoprazole [Protonix TAB] 40 mg PO QDAC #30 tablet 08/06/20 Unknown Rx amLODIPine 10 mg PO QDAY #30 tablet 08/06/20 Unknown Rx cilostazoL [Pletal] 100 mg PO BID #60 tablet 08/06/20 Unknown Rx levoFLOXacin [Levaquin TAB] 750 mg PO DAILY #5 tablet 08/06/20 Unknown Rx oxyCODONE /ACETAMINOPHEN [Percocet 1 tab PO Q4H PRN #14 tablet 08/06/20 Unknown Rx 5/325 mg] Active Medications: Generic Name Dose Route Start Last Admin Trade Name Freq PRN Reason Stop Dose Admin Acetaminophen 650 mg 07/17/20 00:20 08/04/20 18:33 Tylenol PO 650 mg Q4H PRN Administration Pain MILD(1-3)/Fever >100.5/REYES Albuterol/Ipratropium 1 ampul 08/02/20 10:00 08/06/20 07:42 Ipratropium/Albuterol Sulfate 3 Ml Ampul.Neb IH 1 ampul Q6HRT DELFINO Administration Atorvastatin Calcium 40 mg 07/31/20 22:00 08/05/20 22:29 Lipitor PO 40 mg QHS DELFINO Administration Cilostazol 100 mg 07/25/20 22:00 08/05/20 22:29 Pletal PO 100 mg BID DELFINO Administration Docusate Sodium 100 mg 07/22/20 22:00 08/05/20 22:30 Colace PO Not Given BID DELFINO Folic Acid 1 mg 07/31/20 10:00 08/05/20 09:18 Folvite PO 1 mg QDAY DELFINO Administration Hydralazine HCl 10 mg 07/17/20 02:24 07/17/20 06:10 Apresoline IV 10 mg Q6HR PRN Administration Blood Pressure Hydromorphone HCl 0.5 mg 07/30/20 13:33 Dilaudid IV Q10MIN PRN Pain , Severe (7-10) Sodium Chloride 1,000 mls @ 100 mls/hr 08/02/20 10:00 08/05/20 17:15 Nacl 0.9% 1000 Ml IV 100 mls/hr DIRECT DELFINO Administration Levofloxacin/Dextrose 750 mg in 150 mls @ 100 mls/hr 08/05/20 10:00 08/05/20 10:16 Levaquin 750mg/150ml IV 100 mls/hr Q24H DELFINO Administration Protocol Labetalol HCl 10 mg 07/17/20 17:20 07/23/20 13:06 Labetalol IV 10 mg Q3H PRN Administration Blood Pressure Lorazepam 1 mg 07/23/20 16:45 07/31/20 22:04 Ativan PO 1 mg QHS PRN Administration Sleep Magnesium Hydroxide 30 ml 07/17/20 00:20 Milk Of Magnesia PO Q4H PRN Constipation Midodrine 5 mg 08/02/20 03:00 08/05/20 17:12 Proamatine PO Not Given TID@0800,1200,1600 [facility] Morphine Sulfate 2 mg 07/17/20 00:20 08/01/20 10:37 Morphine IV 2 mg Q4H PRN Administration Pain, Moderate (4-6) Ondansetron HCl 4 mg 07/17/20 00:20 Zofran IV Q8H PRN Nausea And Vomiting Oxycodone/Acetaminophen 1 tab 07/25/20 14:53 08/05/20 17:54 Percocet 5/325 PO 1 tab Q4H PRN Administration Pain, Moderate (4-6) Pantoprazole Sodium 40 mg 07/19/20 16:00 08/05/20 09:18 Protonix PO 40 mg QDAC DELFINO Administration Pseudoephedrine/Acetam/Chlorphenir 10 ml 07/20/20 18:21 08/02/20 01:03 Robitussin Ac PO 10 ml BID PRN Administration Cough Sodium Chloride 10 ml 07/17/20 10:00 08/05/20 22:29 Sodium Chloride Flush Syringe 10 Ml IV 10 ml BID DELFINO Administration Sodium Chloride 10 ml 07/17/20 00:20 Sodium Chloride Flush Syringe 10 Ml IV PRN PRN LINE FLUSH Thiamine HCl 100 mg 07/31/20 10:00 08/05/20 09:18 Vitamin B-1 PO 100 mg QDAY DELFINO Administration Trazodone HCl 50 mg 07/19/20 23:45 08/05/20 22:29 Desyrel PO 50 mg QHS DELFINO Administration
[2020-08-06 09:07] LABS: BUN/Creatinine Ratio 10; Blood Urea Nitrogen 8 mg/dL (9-20); Calcium 8.5 mg/dL (8.4-10.2); Hemolysis Index 0
[2020-08-06] MEDS ORDERED: METOPROLOL TARTRATE 50 MG TAB PO SCH ×2 (11:00)
[2020-08-06] MEDS ORDERED: METOPROLOL TARTRATE 25 MG TAB PO SCH (11:00)
[2020-08-06] MEDS ORDERED: amLODIPine 10 MG TAB PO SCH (11:00)
[2020-08-06] MEDS: FOLIC ACID 1 MG TAB PO SCH (11:09)
[2020-08-06] MEDS: PANTOPRAZOLE 40 MG TAB PO SCH (11:09)
[2020-08-06] MEDS: DOCUSATE SODIUM 100 MG CAP PO SCH (11:09)
[2020-08-06] MEDS: THIAMINE 100 MG TAB PO SCH (11:09)
[2020-08-06] MEDS: CILOSTAZOL 100 MG TAB PO SCH (11:10)
[2020-08-06] MEDS: MIDODRINE 5 MG TAB PO SCH (11:12)
--- NOTE | 2020-08-06 14:47 | Discharge Summary ---
Providers - Providers Date of Admission: 07/18/20 08:00 Date of discharge: 08/06/20 Attending physician: IDALIA COTA 07/16/20 23:51 Consult to Physician [CONS] Stat Comment: Consulting Provider: ANDRES MAO Physician Instructions: Reason For Exam: gangrene 07/17/20 02:11 Consult to Wound/ET Nurse [CONS] Routine Reason For Exam: wound eval on left toe 07/26/20 11:13 Physical Therapy Evaluation and Treat [CONS] Routine Comment: Able to ambulate on left foot with Lulu boot Reason For Exam: reevaluate and treat after left TMA 07/30/20 16:18 Consult to Head Resident [CONS] Routine Reason For Exam: Lulu Toe Off-Loading Boot for left foot 08/03/20 09:32 Consult to Physician [CONS] Routine Comment: Consulting Provider: JUANA VENTURA Physician Instructions: Reason For Exam: primo 08/03/20 11:53 Consult to Wound/ET Nurse [CONS] Routine Reason For Exam: re-eval wnd post surgery Primary care physician: [employer] Hospitalization Condition: Stable Pertinent studies: Foot x-ray, lower arterial duplex study, ankle brachial index, abdomen CTA, abdomen pelvis CT, renal ultrasound, chest x-ray, head CT. Procedures: s/p TREMAINE 07/30 LLE revascularization done on 07/18 and 07/24 Hospital course: 64-year-old white male with known history of hypertension, coronary artery disease with CABG in the past presenting to the emergency room with discoloration and pain in the left great toe. Work-up in the emergency room today reveals leukocytosis of 14. Foot x-ray reveals:Left foot wound without radiographic evidence of osteomyelitis. Ultrasound of the left lower extremity reveals: Moderate scattered peripheral artery disease with diffusely dampened waveforms. There is suspected high-grade stenosis at the mid to distal SFA. Minimal monophasic flow in the dorsalis pedis and anterior tibial artery, both of which are patent. The posterior tibial artery is also patent. Vascular surgeon Dr. Mao was consulted and notified of the above findings by the ER physician. patient on empiric IV and admitted for further mx. s/p LLE revascularization done on 07/18 and 07/24 followed by TREMAINE 07/30 by vascular sergery. Post op he developed acute renal failure and urinary retension. Initially overdiuresis was thought to be the cause for renal failure but then patient noted to have bladder distention with urinary retention and hypotension. Cabrales catheter was placed and drained about 2400 mils of urine and also noted hematuria. His kidney function improved and normalized following Cabrales placement. His BP meds were readjusted, physical therapy recommended home health. Patient was discharged home in stable condition with home health wound care and physical therapy. Patient was recommended to follow-up with PCP at the [facility] in 1 week and also to follow-up with the [facility] urologist in 1 to 2 weeks. Patient was discharged home in stable condition with Cabrales catheter. Daily course: 07/31: Resumed care. Status post TMA yesterday. Postop doing well. Plan for 2D echo today. We will continue to monitor. 08/01; Discharge pending on physical therapy clearance. Patient noted to have dizziness and unsteady gait with physical therapy today. We will continue to follow. We will discontinue Lasix today. Order BMP tomorrow. 08/02: Serum creatinine greater than 3 today, patient admitted with normal creatinine level. PRIMO developed likely due to overdiuresis. Will place on IV fluid, repeat BMP tomorrow morning if no improvement in 24-hour we will consult nephrology. 08/03: Cr 5.7 today, patient remains low hypotensive, d/c all BP meds. consult Nephrology. repeat BMP in the am. 08/04: will place on cabrales catheter, assess for urine output, monitor ins and outs. Repeat BMP tomorrow morning. Will transfuse 1 units of packed RBC today. CBC tomorrow morning. 08/05: Cr improved today, H&H stable after transfusing 1 unit of packed RBC. noted hematuria on cabrales. Continue to monitor BMP and H&H. Noted CT abdomen pelvis result. Continue antibiotic for UTI and left foot cellulitis. 08/06: h/h stable, hematuria improved, Cr normal. d/c home with cabrales and outpt f/u with urology. Discharge diagnosis: --PRIMO, no vasomotor nephropathy likely due to postobstructive uropathy, not POA Placed on Cabrales catheter with improvement of renal function --Anemia likely due to acute blood loss Patient noted to have hematuria on 08/04 - not POA Transfused 1 unit of packed RBc --Urinary retention, status post Cabrales placed CT abdomen pelvis showed bladder wall thickness Likely from BPH, urology f/u outpt --SIRS w/o organ dysfynction Patient presented with cellulitis and gangrene of the left foot with leukocytosis low-grade temp intermittent tachycardia Treated with empiric antibiotics, status post TMA 07/30 -- 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 BP meds over briefly hold for hypertensive episodes --CAD (coronary artery disease) On Plavix, statin -- CHF (congestive heart failure), chronic diastolic and compensated 2D echo showed preserved EF -- DVT prophylaxis Disposition: [id number] HOME UNDER HOME HLTH Time spent for discharge: 34 minutes Core Measure Documentation - Palliative Care Palliative Care/ Comfort Measures: Not Applicable - Core Measures Any of the following diagnoses?: none Exam - Physical Exam Narrative exam: General appearance: Present: no acute distress, well-nourished - EENT Eyes: PERRL, EOM intact ENT: hearing intact, clear oral mucosa Ears: bilateral: normal - Neck Neck: supple, normal ROM - Respiratory Respiratory effort: normal Respiratory: bilateral: CTA - Breasts Breasts: normal - Cardiovascular Heart rate: 78 Rhythm: regular Heart Sounds: Present: S1 & S2. Absent: gallop, rub Extremities: pulses intact, No edema, normal color, Full ROM, abnormal (L foot TMA) Extremity abnormal: other (L foot TMA) - Gastrointestinal General gastrointestinal: Present: soft, non-tender, non-distended, normal bowel sounds - Genitourinary Male genitourinary: cabrales in place - Integumentary Integumentary: clear, warm, dry - Musculoskeletal Musculoskeletal: 1, strength equal bilaterally - Neurologic Neurologic: moves all extremities - Psychiatric Psychiatric: memory intact, appropriate mood/affect, intact judgment & insight - Constitutional Vitals: Temp Pulse Resp BP Pulse Ox 98.4 F 85 20 185/78 92 08/06/20 11:03 08/06/20 11:16 08/06/20 11:03 08/06/20 11:16 08/06/20 11:03 Plan Activity: fall precautions Weight Bearing Status: Non-Weight Bearing Diet: low fat, low salt Wound: per your surgeon's advice Special Instructions: record daily BP diary, other (walking boots) Follow up with: ANDRES TOURE MD [Staff Physician] - 3-5 Days Prescriptions: amLODIPine 10 mg PO QDAY #30 tablet levoFLOXacin [Levaquin TAB] 750 mg PO DAILY #5 tablet oxyCODONE /ACETAMINOPHEN [Percocet 5/325 mg] 1 tab PO Q4H PRN #14 tablet PRN Reason: Pain, Moderate (4-6) cilostazoL [Pletal] 100 mg PO BID #60 tablet Pantoprazole [Protonix TAB] 40 mg PO QDAC #30 tablet
[2020-08-06 19:13] VITALS: BP 166/71
[2020-08-07] MEDS ORDERED: levoFLOXacin 750 MG TAB PO SCH (10:00)
== END 2020-08-06 17:52 | disposition home health service (06) | DRG 271 ==
LOC: EDBD → ED 15:50 → 3A 23:52 → OBSVTOIN 07-18 08:00
PROVIDERS: ADMIT Internal Medicine Geriatric Medicine; ATTEND Internal Medicine
PROC: 04CN3ZZ Extirpation of Matter from Left Popliteal Artery, Percutaneous Approach (ICD-10-PCS; principal; 2020-07-18)
PROC: 047S34Z Dilation of Left Posterior Tibial Artery with Drug-eluting Intraluminal Device, Percutaneous Approach (ICD-10-PCS; 2020-07-18)
PROC: 047N34Z Dilation of Left Popliteal Artery with Drug-eluting Intraluminal Device, Percutaneous Approach (ICD-10-PCS; 2020-07-18)
PROC: 04CS3ZZ Extirpation of Matter from Left Posterior Tibial Artery, Percutaneous Approach (ICD-10-PCS; 2020-07-18)
PROC: 047S34Z Dilation of Left Posterior Tibial Artery with Drug-eluting Intraluminal Device, Percutaneous Approach (ICD-10-PCS; 2020-07-24)
PROC: 04CS3ZZ Extirpation of Matter from Left Posterior Tibial Artery, Percutaneous Approach (ICD-10-PCS; 2020-07-24)
PROC: 0Y6N0Z9 Detachment at Left Foot, Partial 1st Ray, Open Approach (ICD-10-PCS; 2020-07-30)
PROC: 0Y6N0ZB Detachment at Left Foot, Partial 2nd Ray, Open Approach (ICD-10-PCS; 2020-07-30)
PROC: 0Y6N0ZC Detachment at Left Foot, Partial 3rd Ray, Open Approach (ICD-10-PCS; 2020-07-30)
PROC: 0Y6N0ZD Detachment at Left Foot, Partial 4th Ray, Open Approach (ICD-10-PCS; 2020-07-30)
PROC: 0Y6N0ZF Detachment at Left Foot, Partial 5th Ray, Open Approach (ICD-10-PCS; 2020-07-30)
PROC: 30233N1 Transfusion of Nonautologous Red Blood Cells into Peripheral Vein, Percutaneous Approach (ICD-10-PCS; 2020-08-04)
DX: I96 Gangrene, not elsewhere classified (principal); L03.116 Cellulitis of left lower limb; R65.10 Systemic inflammatory response syndrome (SIRS) of non-infectious origin without acute organ dysfunction; I50.32 Chronic diastolic (congestive) heart failure; N17.9 Acute kidney failure, unspecified; D62 Acute posthemorrhagic anemia; I11.0 Hypertensive heart disease with heart failure; E87.6 Hypokalemia; I25.10 Atherosclerotic heart disease of native coronary artery without angina pectoris; R31.9 Hematuria, unspecified; R33.9 Retention of urine, unspecified; Z20.828 Contact with and (suspected) exposure to other viral communicable diseases; Z95.1 Presence of aortocoronary bypass graft
CPT/HCPCS: 36415; 37184; 37225; 37228; 37231; 70450; 71045; 74176; 75625; 75635; 75710; 76770; 76937; 80048; 80053; 81001; 82570; 82962; 84132; 84300; 85014; 85018; 85025; 85049; 85520; 85610; 85730; 86850; 86900; 86901; 86920; 87075; 87076; 87086; 87116; 87186; 88307; 88311; 89050; 93306; 93922; 93925; 94640; 96374; 96375; G0378; A4217; A9270-GY; C1724; C1725; C1760; C1769; C1874; C1887; C1894; C2623; J0360; J0690; J1170; J1644; J1956; J2250; J2270; J2370; J2405; J2704; J2997; J3010; J7030; J7040; P9016; Q9967; U0003

== ENCOUNTER 2020-08-15 08:39 | Inpatient (IN) | payer OTHER ==
--- NOTE | 2020-08-15 09:10 | Emergency Department Report ---
ED General Adult HPI - General Chief complaint: Extremity Injury, Lower Stated complaint: LT FOOT PAIN Time Seen by Provider: 08/15/20 09:07 Source: EMS Mode of arrival: Stretcher Limitations: Physical Limitation - History of Present Illness Initial comments: Patient is 64-year-old male with recent left toe amputation presents to emergency department for evaluation of bleeding from wound with hyperglycemia. Patient complaining of pain to his left foot since operation. Denies fever or other complaints. - Related Data Home Medications Medication Instructions Recorded Confirmed Last Taken AtorvaSTATin [Lipitor] 40 mg PO QHS 07/17/20 07/17/20 Unknown Clopidogrel [Plavix] 75 mg PO QDAY 07/17/20 07/17/20 Unknown Folic Acid [Folvite] 1 mg PO QDAY 07/17/20 07/17/20 Unknown Metoprolol [Lopressor TAB] 50 mg PO BID 07/17/20 07/17/20 Unknown Thiamine [Vitamin B-1] 100 mg PO QDAY 07/17/20 07/17/20 Unknown Previous Rx's Medication Instructions Recorded Last Taken Type Pantoprazole [Protonix TAB] 40 mg PO QDAC #30 tablet 08/06/20 Unknown Rx amLODIPine 10 mg PO QDAY #30 tablet 08/06/20 Unknown Rx cilostazoL [Pletal] 100 mg PO BID #60 tablet 08/06/20 Unknown Rx levoFLOXacin [Levaquin TAB] 750 mg PO DAILY #5 tablet 08/06/20 Unknown Rx oxyCODONE /ACETAMINOPHEN [Percocet 1 tab PO Q4H PRN #14 tablet 08/06/20 Unknown Rx 5/325 mg] Allergies Allergy/AdvReac Type Severity Reaction Status Date / Time Penicillins Allergy Hives Verified 07/16/20 22:49 ED Review of Systems ROS: Stated complaint: LT FOOT PAIN Other details as noted in HPI Comment: All other systems reviewed and negative ED Past Medical Hx - Past Medical History Hx Hypertension: Yes Additional medical history: High Cholesterol - Surgical History Hx Open Heart Surgery: Yes (in 2019 and also a cyst removed from R chest) Additional Surgical History: Tonsilectomy, cyst removed from right chest; Open heart, left foot amputation - Social History Smoking Status: Former Smoker - Medications Home Medications: Home Medications Medication Instructions Recorded Confirmed Last Taken Type AtorvaSTATin [Lipitor] 40 mg PO QHS 07/17/20 07/17/20 Unknown History Clopidogrel [Plavix] 75 mg PO QDAY 07/17/20 07/17/20 Unknown History Folic Acid [Folvite] 1 mg PO QDAY 07/17/20 07/17/20 Unknown History Metoprolol [Lopressor TAB] 50 mg PO BID 07/17/20 07/17/20 Unknown History Thiamine [Vitamin B-1] 100 mg PO QDAY 07/17/20 07/17/20 Unknown History Pantoprazole [Protonix TAB] 40 mg PO QDAC #30 tablet 08/06/20 Unknown Rx amLODIPine 10 mg PO QDAY #30 tablet 08/06/20 Unknown Rx cilostazoL [Pletal] 100 mg PO BID #60 tablet 08/06/20 Unknown Rx levoFLOXacin [Levaquin TAB] 750 mg PO DAILY #5 tablet 08/06/20 Unknown Rx oxyCODONE /ACETAMINOPHEN [Percocet 1 tab PO Q4H PRN #14 tablet 08/06/20 Unknown Rx 5/325 mg] ED Physical Exam - General General appearance: alert, in no apparent distress - Head Head exam: Present: atraumatic, normocephalic - Eye Eye exam: Present: normal appearance - ENT ENT exam: Present: mucous membranes moist - Neck Neck exam: Present: normal inspection - Respiratory Respiratory exam: Present: normal lung sounds bilaterally. Absent: respiratory distress - Cardiovascular Cardiovascular Exam: Present: regular rate, normal rhythm. Absent: systolic murmur, diastolic murmur, rubs, gallop - GI/Abdominal GI/Abdominal exam: Present: soft, normal bowel sounds - Rectal Rectal exam: Present: deferred - Extremities Exam Extremities exam: Present: other ((+) wound to left foot s/p amputation of toes (-) warmth/discharge/erythema) - Back Exam Back exam: Present: normal inspection - Neurological Exam Neurological exam: Present: alert, oriented X3 - Psychiatric Psychiatric exam: Present: normal affect, normal mood - Skin Skin exam: Present: warm, dry, intact, normal color. Absent: rash ED Course Vital Signs 08/15/20 08/15/20 08/15/20 08:46 08:54 09:00 Blood Pressure 142/73 Blood Pressure 142/73 [Right] O2 Sat by Pulse 99 99 99 Oximetry 08/15/20 08/15/20 08/15/20 09:16 09:30 09:45 Blood Pressure 163/78 129/71 144/79 Blood Pressure [Right] O2 Sat by Pulse 99 99 98 Oximetry 08/15/20 08/15/20 08/15/20 10:00 10:15 10:30 Blood Pressure 144/79 148/90 148/90 Blood Pressure [Right] O2 Sat by Pulse 99 96 98 Oximetry 08/15/20 08/15/20 08/15/20 10:46 11:00 12:05 Blood Pressure 144/79 148/71 151/77 Blood Pressure [Right] O2 Sat by Pulse 99 99 99 Oximetry - Reevaluation(s) Reevaluation #1: 08/15/20 13:[address] Holland who will admit patient for further intervention ED Medical Decision Making - Lab Data Result diagrams: 08/15/20 10:40 08/15/20 10:40 Lab Results 08/15/20 08/15/20 08/15/20 Range/Units 10:40 10:40 Unknown WBC 9.5 (4.5-11.0) K/mm3 RBC 2.96 L (3.65-5.03) M/mm3 Hgb 9.0 L (11.8-15.2) gm/dl Hct 25.8 L (35.5-45.6) % MCV 87 (84-94) fl MCH 30 (28-32) pg MCHC 35 H (32-34) % RDW 16.2 H (13.2-15.2) % Plt Count 357 (140-440) K/mm3 Lymph % (Auto) 23.8 (13.4-35.0) % [place] % (Auto) 5.2 (0.0-7.3) % Eos % (Auto) 2.2 (0.0-4.3) % Baso % (Auto) 0.6 (0.0-1.8) % Lymph # (Auto) 2.3 (1.2-5.4) K/mm3 [place] # (Auto) 0.5 (0.0-0.8) K/mm3 Eos # (Auto) 0.2 (0.0-0.4) K/mm3 Baso # (Auto) 0.1 (0.0-0.1) K/mm3 Seg Neutrophils % 68.2 (40.0-70.0) % Seg Neutrophils # 6.4 (1.8-7.7) K/mm3 Sodium 138 (137-145) mmol/L Potassium 3.7 (3.6-5.0) mmol/L Chloride 102.3 (98-107) mmol/L Carbon Dioxide 29 (22-30) mmol/L Anion Gap 10 mmol/L BUN 9 (9-20) mg/dL Creatinine 0.7 L (0.8-1.3) mg/dL Estimated GFR > 60 ml/min BUN/Creatinine Ratio 13 % Glucose 188 H (75-100) mg/dL Calcium 8.3 L (8.4-10.2) mg/dL Urine Color Yellow (Yellow) Urine Turbidity Clear (Clear) Urine pH 6.0 (5.0-7.0) Ur Specific [place] 1.017 (1.003-1.030) Urine Protein 100 mg/dl (Negative) mg/dL Urine Glucose (UA) 50 (Negative) mg/dL Urine Ketones Neg (Negative) mg/dL Urine Blood Lg (Negative) Urine Nitrite Neg (Negative) Urine Bilirubin Neg (Negative) Urine Urobilinogen < 2.0 (<2.0) mg/dL Ur Leukocyte Esterase Sm (Negative) Urine WBC (Auto) 31.0 H (0.0-6.0) /HPF Urine RBC (Auto) 46.0 (0.0-6.0) /HPF Urine Mucus Few /HPF Vital Signs 08/15/20 08/15/20 08/15/20 08:46 08:54 09:00 Blood Pressure 142/73 Blood Pressure 142/73 [Right] O2 Sat by Pulse 99 99 99 Oximetry 08/15/20 08/15/20 08/15/20 09:16 09:30 09:45 Blood Pressure 163/78 129/71 144/79 Blood Pressure [Right] O2 Sat by Pulse 99 99 98 Oximetry 08/15/20 08/15/20 08/15/20 10:00 10:15 10:30 Blood Pressure 144/79 148/90 148/90 Blood Pressure [Right] O2 Sat by Pulse 99 96 98 Oximetry 08/15/20 08/15/20 08/15/20 10:46 11:00 12:05 Blood Pressure 144/79 148/71 151/77 Blood Pressure [Right] O2 Sat by Pulse 99 99 99 Oximetry Critical care attestation.: If time is entered above; I have spent that time in minutes in the direct care of this critically ill patient, excluding procedure time. ED Disposition Clinical Impression: Necrosis of surgical wound Disposition: OP ADMIT IP TO THIS HOSP Is pt being admited?: Yes Condition: Stable Referrals: PRIMARY CARE, [Primary Care Provider] - 3-5 Days
[2020-08-15] MEDS ORDERED: SODIUM CHLORIDE 0.9% 1000 ML 1,000 ML IV ONE (09:11)
[2020-08-15] MEDS ORDERED: MORPHINE 2 MG/1 ML INJ IV ONE (09:56)
[2020-08-15 11:13] LABS: Basophils # (Auto) 0.1 K/mm3 (0.0-0.1); Basophils % (Auto) 0.6 % (0.0-1.8); Eosinophils # (Auto) 0.2 K/mm3 (0.0-0.4); Eosinophils % (Auto) 2.2 % (0.0-4.3); Hematocrit 25.8 % (35.5-45.6); Lymphocytes # (Auto) 2.3 K/mm3 (1.2-5.4); Lymphocytes % (Auto) 23.8 % (13.4-35.0); Mean Corpuscular HGB Conc 35 % (32-34); Mean Corpuscular Volume 87 fl (84-94); Monocytes # (Auto) 0.5 K/mm3 (0.0-0.8); Monocytes % (Auto) 5.2 % (0.0-7.3); Platelet Count 357 K/mm3 (140-440); Red Blood Count 2.96 M/mm3 (3.65-5.03); Red Cell Distribution Width 16.2 % (13.2-15.2)
[2020-08-15 11:32] LABS: Blood Urea Nitrogen 9 mg/dL (9-20); Calcium 8.3 mg/dL (8.4-10.2); Hemolysis Index 0
[2020-08-15 11:49] LABS: Bilirubin,Urine NEG (Negative); Blood,Urine LG (Negative); Color,Urine Yellow (Yellow); Mucus,Urine FEW /HPF; Urobilinogen,Urine < 2.0 mg/dL (<2.0)
[2020-08-15 12:03] LABS: BUN/Creatinine Ratio 13
--- NOTE | 2020-08-15 13:01 | Consultation ---
History of Present Illness - Reason for Consult Consult date: 08/15/20 Poorly Healing Left TMA Requesting physician: RACHEL WALL - History of Present Illness The patient is a 64-year-old male with a history of peripheral vascular disease who was recently in the hospital and underwent revascularization of his left lower extremity with a left transmetatarsal amputation. He initially did well and was discharged to home however he was brought to the emergency department with complaints of bleeding from the wound. He states that his daughter was assisting with taking care of him at home with home health coming out to his house to assist him. He states that his daughter was unable to manage him at home which was making it difficult to care for his wounds. He complains of some pain in the left foot however he has no additional complaints at this time. Past History Past Medical History: CAD, hypertension, hyperlipidemia, PVD Past Surgical History: CABG, tonsillectomy, Other (Left transmetatarsal amputation, revascularization of left lower extremity, removal of cyst on right chest) Social history: no significant social history Family history: no significant family history Medications and Allergies Allergies Allergy/AdvReac Type Severity Reaction Status Date / Time Penicillins Allergy Hives Verified 07/16/20 22:49 Home Medications Medication Instructions Recorded Confirmed Last Taken Type AtorvaSTATin [Lipitor] 40 mg PO QHS 07/17/20 07/17/20 Unknown History Clopidogrel [Plavix] 75 mg PO QDAY 07/17/20 07/17/20 Unknown History Folic Acid [Folvite] 1 mg PO QDAY 07/17/20 07/17/20 Unknown History Metoprolol [Lopressor TAB] 50 mg PO BID 07/17/20 07/17/20 Unknown History Thiamine [Vitamin B-1] 100 mg PO QDAY 07/17/20 07/17/20 Unknown History Pantoprazole [Protonix TAB] 40 mg PO QDAC #30 tablet 08/06/20 Unknown Rx amLODIPine 10 mg PO QDAY #30 tablet 08/06/20 Unknown Rx cilostazoL [Pletal] 100 mg PO BID #60 tablet 08/06/20 Unknown Rx levoFLOXacin [Levaquin TAB] 750 mg PO DAILY #5 tablet 08/06/20 Unknown Rx oxyCODONE /ACETAMINOPHEN [Percocet 1 tab PO Q4H PRN #14 tablet 08/06/20 Unknown Rx 5/325 mg] Review of Systems All systems: negative Exam - Constitutional Vitals: Temp Pulse Resp BP Pulse Ox 151/77 99 08/15/20 12:05 08/15/20 12:05 General appearance: Present: no acute distress - Respiratory Respiratory effort: normal - Cardiovascular Rhythm: regular - Extremities Extremities: normal temperature, abnormal (Dehiscence of the staple line, there was a dressing on the wound that was adherent to the plantar surface of the foot and upon removing the dressing it partially denuded the superior lateral portion of the plantar surface of the foot. ) Extremity abnormal: other (The remainder of the plantar surface and dorsal aspect of the foot appear viable) - Abdominal General gastrointestinal: Present: soft Results - Labs CBC & Chem 7: 08/15/20 10:40 08/15/20 10:40 Labs: Abnormal lab results 08/15/20 08/15/20 08/15/20 Range/Units 10:40 10:40 Unknown RBC 2.96 L (3.65-5.03) M/mm3 Hgb 9.0 L (11.8-15.2) gm/dl Hct 25.8 L (35.5-45.6) % MCHC 35 H (32-34) % RDW 16.2 H (13.2-15.2) % Creatinine 0.7 L (0.8-1.3) mg/dL Glucose 188 H (75-100) mg/dL Calcium 8.3 L (8.4-10.2) mg/dL Urine WBC (Auto) 31.0 H (0.0-6.0) /HPF Assessment and Plan The patient is a 64-year-old male with a history of peripheral vascular disease and a left transmetatarsal amputation. The wound has dehisced and now has a denuded surface on the plantar aspect. The dressing that had been applied also appeared to keep the wound moist and appeared to lead to some necrotic tissue within the wound. The patient will require an arterial duplex to evaluate the chances of wound healing. Additionally he will require a washout with debridement of the necrotic tissue and wound VAC placement for healing. I discussed this with the patient was expressed understanding and has agreed to proceed with the plan.
[2020-08-15] MEDS ORDERED: levoFLOXacin 500 MG TAB PO ONE (13:49)
[2020-08-15 14:32] LABS: Blood Urea Nitrogen 8 mg/dL (9-20); Calcium 8.4 mg/dL (8.4-10.2); Hemolysis Index 4
--- NOTE | 2020-08-15 14:33 | History and Physical Report ---
History of Present Illness Chief complaint: My foot is bleeding. History of present illness: 64 YO Male with HTN, CAD S/P CABG, PVD, HTN, HLD, Gout, ETOH Dependence, GERD presents to ED for evaluation. Pt states that experienced pain and bleeding from his left foot at the site of his previous surgery. EMS notified and upon arrival the patient was found to be in distress and subsequently transported to [facility] for further care and evaluation of the aforementioned symptoms. The patient was seen and evaluated in the emergency department. All lab and imaging studies reviewed. The patient was found to have a left foot wound dehiscence complicated by wound necrosis. Vascular surgery team consulted. Patient admitted to surgical floor for further care. Patient is pending surgical intervention. Patient denies fever, chills, chest pain, palpitation, productive cough, skin rash, recent ill contacts, or known exposure to COVID-19. Prior admission on 07/18/2020 reviewed. All medication listed at time of admission has been reconciled. Advanced care planning conducted in ED. Past History Past Medical History: CAD, hypertension, hyperlipidemia, PVD Past Surgical History: CABG, tonsillectomy, Other (Left transmetatarsal amputation, revascularization of left lower extremity, removal of cyst on right chest) Social history: single Family history: no significant family history Medications and Allergies Allergies Allergy/AdvReac Type Severity Reaction Status Date / Time Penicillins Allergy Hives Verified 07/16/20 22:49 Home Medications Medication Instructions Recorded Confirmed Last Taken Type AtorvaSTATin [Lipitor] 40 mg PO QHS 07/17/20 07/17/20 Unknown History Clopidogrel [Plavix] 75 mg PO QDAY 07/17/20 07/17/20 Unknown History Folic Acid [Folvite] 1 mg PO QDAY 07/17/20 07/17/20 Unknown History Metoprolol [Lopressor TAB] 50 mg PO BID 07/17/20 07/17/20 Unknown History Thiamine [Vitamin B-1] 100 mg PO QDAY 07/17/20 07/17/20 Unknown History Pantoprazole [Protonix TAB] 40 mg PO QDAC #30 tablet 08/06/20 Unknown Rx amLODIPine 10 mg PO QDAY #30 tablet 08/06/20 Unknown Rx cilostazoL [Pletal] 100 mg PO BID #60 tablet 08/06/20 Unknown Rx levoFLOXacin [Levaquin TAB] 750 mg PO DAILY #5 tablet 08/06/20 Unknown Rx oxyCODONE /ACETAMINOPHEN [Percocet 1 tab PO Q4H PRN #14 tablet 08/06/20 Unknown Rx 5/325 mg] Review of Systems Constitutional: no weight loss, no weight gain, no fever, no chills Ears, nose, mouth and throat: no ear pain, no ear discharge, no tinnitis, no decreased hearing, no nose pain Cardiovascular: no chest pain, no orthopnea, no palpitations, no edema, no sync ope, no lightheadedness Respiratory: no cough, no cough with sputum, no excessive sputum, no hemoptysis, no shortness of breath Gastrointestinal: no nausea, no vomiting, no diarrhea, no constipation, no change in bowel habits Genitourinary Male: no hematuria, no flank pain, no discharge, no urinary frequency, no urinary hesitancy Rectal: no pain, no incontinence, no bleeding Musculoskeletal: no neck stiffness, no neck pain, no arm numbness/tingling, no low back pain, no shooting leg pain Integumentary: no rash, no redness, no sores, no wounds Neurological: no paralysis, no weakness, no parathesias, no numbness, no tin gling, no seizures Psychiatric: no anxiety, no memory loss, no sleep disturbances, no change in appetite, no change in libido Endocrine: no cold intolerance, no heat intolerance, no excessive thirst, no polydipsia, no excessive sweating Hematologic/Lymphatic: no easy bruising, no easy bleeding Allergic/Immunologic: no urticaria Exam - Constitutional Vitals: Temp Pulse Resp BP Pulse Ox 151/77 99 08/15/20 12:05 08/15/20 12:05 General appearance: Present: mild distress - EENT Eyes: Present: PERRL ENT: hearing intact, clear oral mucosa - Neck Neck: Present: supple, normal ROM - Respiratory Respiratory effort: normal Respiratory: bilateral: CTA - Cardiovascular Heart Sounds: Present: S1 & S2. Absent: rub, click - Extremities Extremities: pulses symmetrical, No edema, abnormal Extremity abnormal: erythema, other (Left transmetatarsal surgical site wound dehiscence) Peripheral Pulses: within normal limits - Abdominal General gastrointestinal: Present: soft, non-tender, non-distended, normal bowel sounds Male genitourinary: Present: normal - Integumentary Integumentary: Present: clear, warm, dry - Musculoskeletal Musculoskeletal: gait normal, strength equal bilaterally - Psychiatric Psychiatric: appropriate mood/affect, intact judgment & insight - Neurologic Neurologic: CNII-XII intact, moves all extremities Results - Labs CBC & Chem 7: 08/15/20 10:40 08/15/20 14:00 Labs: Abnormal lab results 08/15/20 08/15/20 08/15/20 Range/Units 10:40 10:40 14:00 RBC 2.96 L (3.65-5.03) M/mm3 Hgb 9.0 L (11.8-15.2) gm/dl Hct 25.8 L (35.5-45.6) % MCHC 35 H (32-34) % RDW 16.2 H (13.2-15.2) % BUN 8 L (9-20) mg/dL Creatinine 0.7 L (0.8-1.3) mg/dL Glucose 188 H 115 H (75-100) mg/dL Calcium 8.3 L (8.4-10.2) mg/dL Urine WBC (Auto) (0.0-6.0) /HPF 08/15/20 Range/Units Unknown RBC (3.65-5.03) M/mm3 Hgb (11.8-15.2) gm/dl Hct (35.5-45.6) % MCHC (32-34) % RDW (13.2-15.2) % BUN (9-20) mg/dL Creatinine (0.8-1.3) mg/dL Glucose (75-100) mg/dL Calcium (8.4-10.2) mg/dL Urine WBC (Auto) 31.0 H (0.0-6.0) /HPF Assessment and Plan - Patient Problems (1) Necrosis of surgical wound Current Visit: Yes Status: Acute Plan to address problem: Surgery team consulted. Patient is pending surgical intervention at this time, pain control, supportive care. Further care as per vascular surgery team. (2) CHF (congestive heart failure) Current Visit: No Status: Chronic Qualifiers: Heart failure chronicity: chronic Plan to address problem: Strict I/O, monitor urine output every shift, daily weight, monitor fluid balance, afterload reduction, blood pressure control. (3) Hypertension Current Visit: Yes Status: Acute Qualifiers: Hypertension type: essential hypertension Qualified Code(s): I10 - Essential (primary) hypertension Plan to address problem: Monitor blood pressure every shift, continue medical management (4) UTI (urinary tract infection) Current Visit: Yes Status: Acute Qualifiers: Encounter type: initial encounter Plan to address problem: CBC, CMP, urinalysis, IV antibiotic therapy. (5) DVT prophylaxis Current Visit: Yes Status: Acute Plan to address problem: SCD to bilateral lower extremities while in bed, anticoagulation as per surgical team (6) Advance care planning Current Visit: Yes Status: Acute Plan to address problem: Disease education conducted, patient is full code, prognosis discussed, care plan discussed, patient knowledges understanding and agreement with care plan, +30 minutes
[2020-08-15 14:34] LABS: BUN/Creatinine Ratio 13
[2020-08-15] MEDS ORDERED: ALBUTEROL 2.5 MG/3 ML NEBU IH PRN (18:13)
[2020-08-15] MEDS ORDERED: ONDANSETRON 4 MG/2 ML INJ IV PRN (18:13)
--- NOTE | 2020-08-15 19:28 | Vascular Lab Report ---
DUPLEX DOPPLER LOWER EXTREMITY ARTERIAL, BILATERAL Bilateral ABIs INDICATION / CLINICAL INFORMATION: Nonhealing Left TMA. TECHNIQUE: Arterial duplex examination of both lower extremities performed using B-mode, color flow and spectral Doppler assessment. FINDINGS: RIGHT: Common Femoral Artery: PSV 103 cm/sec. Biphasic waveform. Proximal SFA: PSV 166 cm/sec. Triphasic waveform. Mid SFA: PSV 132 cm/sec. Biphasic waveform. Distal SFA: PSV 125 cm/sec. Biphasic waveform. Popliteal artery: PSV 119 cm/sec. Monophasic waveform. Posterior tibial artery: PSV 81 cm/sec. Monophasic waveform. Dorsalis Pedis Artery: PSV 99 cm/sec. Monophasic waveform. LEFT: Common Femoral Artery: PSV 124 cm/sec. Biphasic waveform. Proximal SFA: PSV 143 cm/sec. Biphasic waveform. Mid SFA: PSV 134 cm/sec. Biphasic waveform. Distal SFA: PSV 77 cm/sec. Biphasic waveform. Popliteal artery: PSV 130 cm/sec. Triphasic waveform. Posterior tibial artery: Contains stent PSV 34 cm/sec. Monophasic waveform. Dorsalis Pedis Artery: Occluded Right YESSY: 1.08. Left YESSY: 1.04. IMPRESSION: 1. Bilateral distal crural peripheral vascular disease with abnormal monophasic waveforms and occlude d left dorsalis pedis artery Ankle-Brachial Index (YESSY): - Calcified arteries > 1.4 - Normal = 0.9-1.4 - Mild PAD = 0.7-0.89 - Moderate PAD = 0.51-0.69 - Severe PAD < 0.5 Doppler Waveform: - Triphasic is normal. - Biphasic is abnormal if clear transition from triphasic signal along vascular tree. - Monophasic is abnormal. Signer Name: Vito Anderson MD Signed: 08/15/2020 7:23 PM Workstation Name: [id number]
[2020-08-15] MEDS: CILOSTAZOL 100 MG TAB PO SCH (23:30)
[2020-08-15] MEDS: METOPROLOL TARTRATE 50 MG TAB PO SCH (23:31)
[2020-08-15] MEDS: oxyCODONE /ACETAMINOPHEN 5-325MG TAB PO PRN (23:35)
[2020-08-16 06:21] LABS: Basophils # (Auto) 0.1 K/mm3 (0.0-0.1); Basophils % (Auto) 0.9 % (0.0-1.8); Eosinophils # (Auto) 0.4 K/mm3 (0.0-0.4); Eosinophils % (Auto) 4.9 % (0.0-4.3); Hematocrit 29.3 % (35.5-45.6); Hemoglobin 9.6 gm/dl (11.8-15.2); Lymphocytes # (Auto) 2.7 K/mm3 (1.2-5.4); Lymphocytes % (Auto) 31.9 % (13.4-35.0); Mean Corpuscular HGB Conc 33 % (32-34); Mean Corpuscular Volume 89 fl (84-94); Monocytes # (Auto) 0.5 K/mm3 (0.0-0.8); Monocytes % (Auto) 6.4 % (0.0-7.3); Platelet Count 407 K/mm3 (140-440); Red Blood Count 3.28 M/mm3 (3.65-5.03); Red Cell Distribution Width 16.6 % (13.2-15.2)
[2020-08-16 06:34] LABS: Blood Urea Nitrogen 10 mg/dL (9-20); Calcium 9.2 mg/dL (8.4-10.2); Hemolysis Index 0
[2020-08-16 06:36] LABS: BUN/Creatinine Ratio 20
[2020-08-16] MEDS: oxyCODONE /ACETAMINOPHEN 5-325MG TAB PO PRN ×2 (06:44→18:58)
[2020-08-16] MEDS: levoFLOXacin 750 MG TAB PO SCH (11:05)
[2020-08-16] MEDS: PANTOPRAZOLE 40 MG TAB PO SCH (11:05)
[2020-08-16] MEDS: amLODIPine 10 MG TAB PO SCH (11:05)
[2020-08-16] MEDS: CLOPIDOGREL 75 MG TAB PO SCH (11:05)
[2020-08-16] MEDS: FOLIC ACID 1 MG TAB PO SCH (11:06)
[2020-08-16] MEDS: THIAMINE 100 MG TAB PO SCH (11:06)
[2020-08-16] MEDS: METOPROLOL TARTRATE 50 MG TAB PO SCH ×2 (11:06→22:58)
[2020-08-16] MEDS: CILOSTAZOL 100 MG TAB PO SCH ×2 (11:13→22:58)
--- NOTE | 2020-08-16 17:33 | Progress Note ---
Assessment and Plan -- Necrosis of surgical wound h/o TMA on 07/30 he presented with increased bleeding from the wound Vascular consulted for further mx -- Peripheral vascular disease of lower extremity LLE revascularization done on 07/18 and 07/24 Continue antiplatelets and statin -- HTN (hypertension) continue antihypertensives --CAD (coronary artery disease) On Plavix, statin -- CHF (congestive heart failure), chronic diastolic and compensated 2D echo showed preserved EF We will hold the Lasix for now --Urinary retention, status post Renae placed on last admission Likely from BPH, urology f/u outpt --UTI, started on levaquin -- DVT prophylaxis On Heparin 08/16: Vascular surgeon following, cont supportive care. h/h stable. negative for COVID 19 Subjective Date of service: 08/16/20 Interval history: Patient seen and examined c/o left foot pain, no active bleeding now denies any SOB or chest pain Objective - Constitutional Vitals: Vital Signs - 12hr 08/16/20 08/16/20 05:54 10:55 Temperature 99.4 F 98.7 F Pulse Rate 68 75 Respiratory 20 18 Rate Blood Pressure 166/80 159/74 O2 Sat by Pulse 95 96 Oximetry General appearance: Present: no acute distress, obese - EENT Eyes: PERRL, EOM intact ENT: hearing intact, clear oral mucosa Ears: bilateral: normal - Neck Neck: supple, normal ROM - Respiratory Respiratory effort: normal Respiratory: bilateral: CTA - Cardiovascular Rhythm: regular Heart Sounds: Present: S1 & S2. Absent: gallop, rub Extremities: pulses intact, No edema, normal color, Full ROM Extremity abnormal: other (left foot TMA with wound dressing) - Gastrointestinal General gastrointestinal: Present: soft, non-tender, non-distended, normal bowel sounds - Genitourinary Male genitourinary: normal - Integumentary Integumentary: clear, warm, dry - Musculoskeletal Musculoskeletal: 1, strength equal bilaterally - Neurologic Neurologic: moves all extremities - Psychiatric Psychiatric: memory intact, appropriate mood/affect, intact judgment & insight - Labs CBC & Chem 7: 08/16/20 04:43 08/16/20 04:43 Labs: Abnormal lab results 08/16/20 08/16/20 Range/Units 04:43 04:43 RBC 3.28 L (3.65-5.03) M/mm3 Hgb 9.6 L (11.8-15.2) gm/dl Hct 29.3 L (35.5-45.6) % RDW 16.6 H (13.2-15.2) % Eos % (Auto) 4.9 H (0.0-4.3) % Creatinine 0.5 L (0.8-1.3) mg/dL Glucose 153 H (75-100) mg/dL
--- NOTE | 2020-08-16 18:06 | Progress Note ---
Assessment and Plan The patient has dehiscence of the left TMA with likely occluded tibial vessels despite intervention. Will require debridement and wound vac placement, at a minimum. May require intervention to improve flow and ultimately mat require a BKA. Discussed this with the patient who expressed understanding and agrees with the plan. Subjective Date of service: 08/16/20 Interval history: The patient has no complaints at this time. Objective - Constitutional Vitals: Vital Signs - 12hr 08/16/20 08/16/20 10:55 16:13 Temperature 98.7 F 98.1 F Pulse Rate 75 66 Respiratory 18 18 Rate Blood Pressure 159/74 138/61 O2 Sat by Pulse 96 93 Oximetry General appearance: Present: no acute distress - Respiratory Respiratory effort: normal Extremities: pulses intact (right pedal pulses intact, left TMA with wound dehiscence and ulceration), normal temperature - Labs CBC & Chem 7: 08/16/20 04:43 08/16/20 04:43 Labs: Abnormal lab results 08/16/20 08/16/20 Range/Units 04:43 04:43 RBC 3.28 L (3.65-5.03) M/mm3 Hgb 9.6 L (11.8-15.2) gm/dl Hct 29.3 L (35.5-45.6) % RDW 16.6 H (13.2-15.2) % Eos % (Auto) 4.9 H (0.0-4.3) % Creatinine 0.5 L (0.8-1.3) mg/dL Glucose 153 H (75-100) mg/dL - Imaging and cardiology Other: image reviewed (Arterial duplex with monophasic flow and evidence of tibial occlusion on the left) Medications & Allergies - Medications Allergies/Adverse Reactions: Allergies Penicillins Allergy (Verified 07/16/20 22:49) Hives Home Medications: Home Medications Medication Instructions Recorded Confirmed Last Taken Type AtorvaSTATin [Lipitor] 40 mg PO QHS 07/17/20 08/15/20 Unknown History Clopidogrel [Plavix] 75 mg PO QDAY 07/17/20 08/15/20 Unknown History Folic Acid [Folvite] 1 mg PO QDAY 07/17/20 08/15/20 Unknown History Metoprolol [Lopressor TAB] 50 mg PO BID 07/17/20 08/15/20 Unknown History Thiamine [Vitamin B-1] 100 mg PO QDAY 07/17/20 08/15/20 Unknown History Pantoprazole [Protonix TAB] 40 mg PO QDAC #30 tablet 08/06/20 08/15/20 Unknown Rx amLODIPine 10 mg PO QDAY #30 tablet 08/06/20 08/15/20 Unknown Rx cilostazoL [Pletal] 100 mg PO BID #60 tablet 08/06/20 08/15/20 Unknown Rx levoFLOXacin [Levaquin TAB] 750 mg PO DAILY #5 tablet 08/06/20 08/15/20 Unknown Rx oxyCODONE /ACETAMINOPHEN [Percocet 1 tab PO Q4H PRN #14 tablet 08/06/20 08/15/20 Unknown Rx 5/325 mg] Active Medications: Generic Name Dose Route Start Last Admin Trade Name Freq PRN Reason Stop Dose Admin Acetaminophen 650 mg 08/15/20 18:13 Acetaminophen 325 Mg Tab PO Q4H PRN Pain MILD(1-3)/Fever >100.5/REYES Albuterol 2.5 mg 08/15/20 18:13 Albuterol 2.5 Mg/3 Ml Nebu IH Q4HRT PRN Shortness Of Breath Amlodipine Besylate 10 mg 08/16/20 10:00 08/16/20 11:05 Amlodipine 10 Mg Tab PO 10 mg QDAY DELFINO Administration Atorvastatin Calcium 40 mg 08/15/20 22:00 08/15/20 23:31 Atorvastatin 40 Mg Tab PO 40 mg QHS DELFINO Administration Cilostazol 100 mg 08/15/20 22:00 08/16/20 11:13 Cilostazol 100 Mg Tab PO 100 mg BID DELFINO Administration Clopidogrel Bisulfate 75 mg 08/16/20 10:00 08/16/20 11:05 Clopidogrel 75 Mg Tab PO 75 mg QDAY DELFINO Administration Folic Acid 1 mg 08/16/20 10:00 08/16/20 11:06 Folic Acid 1 Mg Tab PO 1 mg QDAY DELFINO Administration Levofloxacin 750 mg 08/16/20 10:00 08/16/20 11:05 Levofloxacin 750 Mg Tab PO 750 mg DAILY DELFINO Administration Protocol Metoprolol Tartrate 50 mg 08/15/20 22:00 08/16/20 11:06 Metoprolol Tartrate 50 Mg Tab PO 50 mg BID DELFINO Administration Morphine Sulfate 2 mg 08/15/20 18:13 Morphine 4 Mg/1 Ml Inj IV Q4H PRN Pain , Severe (7-10) Ondansetron HCl 4 mg 08/15/20 18:13 Ondansetron 4 Mg/2 Ml Inj IV Q8H PRN Nausea And Vomiting Oxycodone/Acetaminophen 1 tab 08/15/20 18:13 08/16/20 06:44 Oxycodone /Acetaminophen 5-325mg Tab PO 1 tab Q6H PRN Administration Pain, Moderate (4-6) Pantoprazole Sodium 40 mg 08/16/20 07:30 08/16/20 11:05 Pantoprazole 40 Mg Tab PO 40 mg QDAC DELFINO Administration Sodium Chloride 10 ml 08/15/20 22:00 08/16/20 11:06 Sodium Chloride 0.9% 10 Ml Flush Syringe IV 10 ml BID DELFINO Administration Sodium Chloride 10 ml 08/15/20 18:13 Sodium Chloride 0.9% 10 Ml Flush Syringe IV PRN PRN LINE FLUSH Thiamine HCl 100 mg 08/16/20 10:00 08/16/20 11:06 Thiamine 100 Mg Tab PO 100 mg QDAY DELFINO Administration
[2020-08-17] MEDS: oxyCODONE /ACETAMINOPHEN 5-325MG TAB PO PRN ×2 (09:56→18:20)
[2020-08-17] MEDS: PANTOPRAZOLE 40 MG TAB PO SCH (09:56)
[2020-08-17] MEDS: CILOSTAZOL 100 MG TAB PO SCH ×2 (09:56→23:20)
[2020-08-17] MEDS: CLOPIDOGREL 75 MG TAB PO SCH (09:56)
[2020-08-17] MEDS: levoFLOXacin 750 MG TAB PO SCH (09:56)
[2020-08-17] MEDS: THIAMINE 100 MG TAB PO SCH (09:57)
[2020-08-17] MEDS: FOLIC ACID 1 MG TAB PO SCH (09:57)
[2020-08-17] MEDS: amLODIPine 10 MG TAB PO SCH (09:57)
[2020-08-17] MEDS: METOPROLOL TARTRATE 50 MG TAB PO SCH ×2 (09:59→23:21)
--- NOTE | 2020-08-17 21:39 | Progress Note ---
Assessment and Plan -- Necrosis of surgical wound h/o TMA on 07/30 he presented with increased bleeding from the wound Vascular consulted for further mx -- Peripheral vascular disease of lower extremity LLE revascularization done on 07/18 and 07/24 Continue antiplatelets and statin -- HTN (hypertension) continue antihypertensives --CAD (coronary artery disease) On Plavix, statin -- CHF (congestive heart failure), chronic diastolic and compensated 2D echo showed preserved EF We will hold the Lasix for now --Urinary retention, status post Renae placed on last admission Likely from BPH, urology f/u outpt --UTI, started on levaquin -- DVT prophylaxis On Heparin 08/16: Vascular surgeon following, cont supportive care. h/h stable. negative for COVID 19 08/07: Per vascular: The patient has dehiscence of the left TMA with likely occluded tibial vessels despite intervention. Will require debridement and wound vac placement, but May require intervention to improve flow and ultimately mat require a BKA. cont supportive care for now, wait for surgical intervention. Subjective Date of service: 08/17/20 Interval history: Patient seen and examined c/o left foot pain, no active bleeding now denies any SOB or chest pain Objective - Exam Narrative Exam: General appearance: Present: no acute distress, obese - EENT Eyes: PERRL, EOM intact ENT: hearing intact, clear oral mucosa Ears: bilateral: normal - Neck Neck: supple, normal ROM - Respiratory Respiratory effort: normal Respiratory: bilateral: CTA - Cardiovascular Rhythm: regular Heart Sounds: Present: S1 & S2. Absent: gallop, rub Extremities: pulses intact, No edema, normal color, Full ROM Extremity abnormal: other (left foot TMA with wound dressing) - Gastrointestinal General gastrointestinal: Present: soft, non-tender, non-distended, normal bowel sounds - Genitourinary Male genitourinary: normal - Integumentary Integumentary: clear, warm, dry - Musculoskeletal Musculoskeletal: 1, strength equal bilaterally - Neurologic Neurologic: moves all extremities - Psychiatric Psychiatric: memory intact, appropriate mood/affect, intact judgment & insight - Constitutional Vitals: Vital Signs - 12hr 08/17/20 08/17/20 12:11 16:42 Temperature 99.0 F 98.6 F Pulse Rate 65 67 Respiratory 22 22 Rate Blood Pressure 115/67 133/67 O2 Sat by Pulse 97 96 Oximetry - Labs CBC & Chem 7: 08/16/20 04:43 08/16/20 04:43
[2020-08-18] MEDS: CLOPIDOGREL 75 MG TAB PO SCH (10:13)
[2020-08-18] MEDS: PANTOPRAZOLE 40 MG TAB PO SCH (10:13)
[2020-08-18] MEDS: oxyCODONE /ACETAMINOPHEN 5-325MG TAB PO PRN ×2 (10:13→17:46)
[2020-08-18] MEDS: levoFLOXacin 750 MG TAB PO SCH (10:13)
[2020-08-18] MEDS: FOLIC ACID 1 MG TAB PO SCH (10:13)
[2020-08-18] MEDS: CILOSTAZOL 100 MG TAB PO SCH ×2 (10:13→21:53)
[2020-08-18] MEDS: THIAMINE 100 MG TAB PO SCH (10:13)
[2020-08-18] MEDS: amLODIPine 10 MG TAB PO SCH (10:14)
[2020-08-18] MEDS: METOPROLOL TARTRATE 50 MG TAB PO SCH ×2 (10:15→21:52)
--- NOTE | 2020-08-18 15:41 | Event Note ---
Date: 08/18/20 Plan for OR Thursday for debridement of his left TMA with wound vac placement. Discussed the plan with the patient who expressed understanding and agrees to proceed.
[2020-08-18 15:57] LABS: BUN/Creatinine Ratio 16; Blood Urea Nitrogen 16 mg/dL (9-20); Calcium 9.2 mg/dL (8.4-10.2); Hemolysis Index 22
--- NOTE | 2020-08-18 18:17 | Progress Note ---
Assessment and Plan -- Necrosis of surgical wound h/o TMA on 07/30 he presented with increased bleeding from the wound Vascular consulted for further mx -- Peripheral vascular disease of lower extremity LLE revascularization done on 07/18 and 07/24 Continue antiplatelets and statin -- HTN (hypertension) continue antihypertensives --CAD (coronary artery disease) On Plavix, statin -- CHF (congestive heart failure), chronic diastolic and compensated 2D echo showed preserved EF We will hold the Lasix for now --Urinary retention, status post Renae placed on last admission Likely from BPH, urology f/u outpt --UTI, started on levaquin -- DVT prophylaxis On Heparin 08/16: Vascular surgeon following, cont supportive care. h/h stable. 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 Will require debridement and wound vac placement, but May require intervention to improve flow and ultimately mat require a BKA. cont supportive care for now, wait for surgical intervention. 08/18: Plan for OR Thursday for debridement of his left TMA with wound vac placement. cont supportive care Subjective Date of service: 08/18/20 Interval history: Patient seen and examined c/o left foot pain, no active bleeding now denies any SOB or chest pain Objective - Exam Narrative Exam: General appearance: Present: no acute distress, obese - EENT Eyes: PERRL, EOM intact ENT: hearing intact, clear oral mucosa Ears: bilateral: normal - Neck Neck: supple, normal ROM - Respiratory Respiratory effort: normal Respiratory: bilateral: CTA - Cardiovascular Rhythm: regular Heart Sounds: Present: S1 & S2. Absent: gallop, rub Extremities: pulses intact, No edema, normal color, Full ROM Extremity abnormal: other (left foot TMA with wound dressing) - Gastrointestinal General gastrointestinal: Present: soft, non-tender, non-distended, normal bowel sounds - Genitourinary Male genitourinary: normal - Integumentary Integumentary: clear, warm, dry - Musculoskeletal Musculoskeletal: 1, strength equal bilaterally - Neurologic Neurologic: moves all extremities - Psychiatric Psychiatric: memory intact, appropriate mood/affect, intact judgment & insight - Constitutional Vitals: Vital Signs - 12hr 08/18/20 11:19 Temperature 98.6 F Pulse Rate 84 Respiratory 22 Rate Blood Pressure 127/76 O2 Sat by Pulse 100 Oximetry - Labs CBC & Chem 7: 08/16/20 04:43 08/18/20 15:17 Labs: Abnormal lab results 08/18/20 Range/Units 15:17 Sodium 135 L (137-145) mmol/L Chloride 97.5 L (98-107) mmol/L Glucose 135 H (75-100) mg/dL
[2020-08-19] MEDS: PANTOPRAZOLE 40 MG TAB PO SCH (10:38)
[2020-08-19] MEDS: THIAMINE 100 MG TAB PO SCH (10:38)
[2020-08-19] MEDS: amLODIPine 10 MG TAB PO SCH (10:38)
[2020-08-19] MEDS: levoFLOXacin 750 MG TAB PO SCH (10:39)
[2020-08-19] MEDS: CLOPIDOGREL 75 MG TAB PO SCH (10:39)
[2020-08-19] MEDS: METOPROLOL TARTRATE 50 MG TAB PO SCH ×2 (10:39→21:39)
[2020-08-19] MEDS: FOLIC ACID 1 MG TAB PO SCH (10:39)
[2020-08-19] MEDS: CILOSTAZOL 100 MG TAB PO SCH ×2 (10:40→21:40)
[2020-08-19] MEDS: oxyCODONE /ACETAMINOPHEN 5-325MG TAB PO PRN (10:44)
--- NOTE | 2020-08-19 12:11 | Progress Note ---
Assessment and Plan -- Necrosis of surgical wound h/o TMA on 07/30 he presented with increased bleeding from the wound Vascular consulted for further mx -- Peripheral vascular disease of lower extremity LLE revascularization done on 07/18 and 07/24 Continue antiplatelets and statin -- HTN (hypertension) continue antihypertensives --CAD (coronary artery disease) On Plavix, statin -- CHF (congestive heart failure), chronic diastolic and compensated 2D echo showed preserved EF We will hold the Lasix for now --Urinary retention, status post Renae placed on last admission Likely from BPH, urology f/u outpt --UTI, started on levaquin -- DVT prophylaxis On Heparin 08/16: Vascular surgeon following, cont supportive care. h/h stable. 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 Will require debridement and wound vac placement, but May require intervention to improve flow and ultimately mat require a BKA. cont supportive care for now, wait for surgical intervention. 08/18: Plan for OR Thursday for debridement of his left TMA with wound vac placement. cont supportive care 08/19: planned for TMA tomorrow, cont supportive care. negative for covid Subjective Date of service: 08/19/20 Interval history: Patient seen and examined c/o left foot pain, no active bleeding now denies any SOB or chest pain Objective - Exam Narrative Exam: General appearance: Present: no acute distress, obese - EENT Eyes: PERRL, EOM intact ENT: hearing intact, clear oral mucosa Ears: bilateral: normal - Neck Neck: supple, normal ROM - Respiratory Respiratory effort: normal Respiratory: bilateral: CTA - Cardiovascular Rhythm: regular Heart Sounds: Present: S1 & S2. Absent: gallop, rub Extremities: pulses intact, No edema, normal color, Full ROM Extremity abnormal: other (left foot TMA with wound dressing) - Gastrointestinal General gastrointestinal: Present: soft, non-tender, non-distended, normal bowel sounds - Genitourinary Male genitourinary: normal - Integumentary Integumentary: clear, warm, dry - Musculoskeletal Musculoskeletal: 1, strength equal bilaterally - Neurologic Neurologic: moves all extremities - Psychiatric Psychiatric: memory intact, appropriate mood/affect, intact judgment & insight - Constitutional Vitals: Vital Signs - 12hr 08/19/20 08/19/2020 04:51 10:38 10:39 Temperature 98.8 F Pulse Rate 87 85 85 Respiratory 18 Rate Blood Pressure 125/59 141/60 141/60 O2 Sat by Pulse 92 Oximetry - Labs CBC & Chem 7: 08/20/20 07:12 08/20/20 07:12 Labs: Abnormal lab results 08/18/20 Range/Units 15:17 Sodium 135 L (137-145) mmol/L Chloride 97.5 L (98-107) mmol/L Glucose 135 H (75-100) mg/dL
[2020-08-20] MEDS: oxyCODONE /ACETAMINOPHEN 5-325MG TAB PO PRN ×2 (06:47→20:30)
[2020-08-20 08:12] LABS: Hematocrit 27.2 % (35.5-45.6); Hemoglobin 9.1 gm/dl (11.8-15.2)
[2020-08-20 08:24] LABS: INR 1.15 (0.87-1.13)
[2020-08-20 08:35] LABS: BUN/Creatinine Ratio 14; Blood Urea Nitrogen 15 mg/dL (9-20); Calcium 9.2 mg/dL (8.4-10.2); Hemolysis Index 1
[2020-08-20] MEDS: CILOSTAZOL 100 MG TAB PO SCH ×2 (10:02→21:26)
[2020-08-20] MEDS ORDERED: HYDROmorphone 1 MG/1 ML INJ IV PRN ×2 (12:33)
[2020-08-20] MEDS ORDERED: ONDANSETRON 4 MG/2 ML INJ IV PRN (12:33)
--- NOTE | 2020-08-20 12:39 | Anesthesia Consultation ---
Anesthesia Consult and Med Hx - Airway Anesthetic Teeth Evaluation: Chipped (Missing) ROM Head & Neck: Adequate Mental/Hyoid Distance: Adequate Mallampati Class: Class II Intubation Access Assessment: Good - Pre-Operative Health Status ASA Pre-Surgery Classification: ASA3 Proposed Anesthetic Plan: General - Pulmonary Hx Respiratory Symptoms: Yes (Cough for a few days) - Cardiovascular System Hx Hypertension: Yes (CHF) Hx Coronary Artery Disease: Yes (4 vessel Cabg mar 2019) Hx Peripheral Vascular Disease: Yes - Central Nervous System Hx Neuromuscular Disorder: Yes (Gout) - Gastrointestinal Hx Gastroesophageal Reflux Disease: Yes - Other Systems Hx Alcohol Use: Yes Hx Cancer: Yes (father had colon cancer) - Additional Comments Anesthesia Medical History Comments: Was here [id number] for original [id number]
--- NOTE | 2020-08-20 12:40 | Anesthesia Day of Surgery ---
Anesthesia Day of Surgery - Day of Surgery Patient Examined: Yes Patient H&P Reviewed: Yes Patient is NPO: Yes
[2020-08-20] MEDS: LACTATED RINGERS 1,000 ML IV SCH ×2 (12:53→20:29)
[2020-08-20] MEDS ORDERED: ceFAZolin/Water 2 GM/20 ML 2 GM/20 ML SYRINGE IV NR (13:00)
[2020-08-20] MEDS ORDERED: propofoL 200 MG/20 ML VIAL IV ONE (13:13)
[2020-08-20] MEDS ORDERED: fentaNYL 100 MCG/2 ML INJ ONE (13:13)
[2020-08-20] MEDS ORDERED: LIDOCAINE (1%) 10 MG/1 ML VIAL 20 ML MDV ONE (13:17)
--- NOTE | 2020-08-20 14:25 | Progress Note ---
Assessment and Plan -- Necrosis of surgical wound h/o TMA on 07/30 he presented with increased bleeding from the wound Vascular consulted for further mx -- Peripheral vascular disease of lower extremity LLE revascularization done on 07/18 and 07/24 Continue antiplatelets and statin -- HTN (hypertension) continue antihypertensives --CAD (coronary artery disease) On Plavix, statin -- CHF (congestive heart failure), chronic diastolic and compensated 2D echo showed preserved EF We will hold the Lasix for now --Urinary retention, status post Renae placed on last admission Likely from BPH, urology f/u outpt --UTI, started on levaquin -- DVT prophylaxis On Heparin 08/16: Vascular surgeon following, cont supportive care. h/h stable. 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 Will require debridement and wound vac placement, but May require intervention to improve flow and ultimately mat require a BKA. cont supportive care for now, wait for surgical intervention. 08/18: Plan for OR Thursday for debridement of his left TMA with wound vac placement. cont supportive care 08/19: planned for TMA tomorrow, cont supportive care. negative for covid 08/20: planned for Nonhealing Left Transmetatarsal Amputation today followed by wound vac placement. cont abx, supportive care Subjective Date of service: 08/20/20 Interval history: Patient seen and examined c/o left foot pain, no active bleeding now denies any SOB or chest pain Objective - Exam Narrative Exam: General appearance: Present: no acute distress, obese - EENT Eyes: PERRL, EOM intact ENT: hearing intact, clear oral mucosa Ears: bilateral: normal - Neck Neck: supple, normal ROM - Respiratory Respiratory effort: normal Respiratory: bilateral: CTA - Cardiovascular Rhythm: regular Heart Sounds: Present: S1 & S2. Absent: gallop, rub Extremities: pulses intact, No edema, normal color, Full ROM Extremity abnormal: other (left foot TMA with wound dressing) - Gastrointestinal General gastrointestinal: Present: soft, non-tender, non-distended, normal bowel sounds - Genitourinary Male genitourinary: normal - Integumentary Integumentary: clear, warm, dry - Musculoskeletal Musculoskeletal: 1, strength equal bilaterally - Neurologic Neurologic: moves all extremities - Psychiatric Psychiatric: memory intact, appropriate mood/affect, intact judgment & insight - Constitutional Vitals: Vital Signs - 12hr 08/20/20 08/20/20 08/20/20 05:52 11:08 11:09 Temperature 100.1 F H 99.0 F Pulse Rate 107 H 95 H Respiratory 20 16 Rate Blood Pressure 122/57 Blood Pressure [Right] O2 Sat by Pulse 96 92 Oximetry 08/20/20 08/20/20 11:10 12:05 Temperature 99 F 99.2 F Pulse Rate 98 H 96 H Respiratory 16 16 Rate Blood Pressure 138/60 Blood Pressure 132/78 [Right] O2 Sat by Pulse 96 Oximetry - Labs CBC & Chem 7: 08/20/20 07:12 08/20/20 07:12 Labs: Abnormal lab results 08/20/20 08/20/20 08/20/20 Range/Units 07:12 07:12 07:12 Hgb 9.1 L (11.8-15.2) gm/dl Hct 27.2 L (35.5-45.6) % INR 1.15 H (0.87-1.13) Glucose 113 H (75-100) mg/dL POC Glucose (70-105) mg/dL 08/20/20 Range/Units 08:07 Hgb (11.8-15.2) gm/dl Hct (35.5-45.6) % INR (0.87-1.13) Glucose (75-100) mg/dL POC Glucose 108 H (70-105) mg/dL
[2020-08-20] MEDS ORDERED: ePHEDrine SULFATE 50 MG/1 ML INJ ONE (14:47)
[2020-08-20] MEDS ORDERED: PHENYLEPHRINE/NS 1,000 MCG/10 ML SYRINGE (OR USE) IV ONE (15:01)
--- NOTE | 2020-08-20 16:21 | Operative Report ---
Operative Report Operative Report: Date of Procedure: 08/20/2020 Pre-operative Diagnosis: Nonhealing Left Transmetatarsal Amputation Post-operative Diagnosis: Same Procedure(s): 1. Excisional Debridement of Skin, Muscle, And Soft Tissue Of Left Foot Wound Measures (9.5 x 6 x 1 cm) 2. Pulse Lavage of Left Foot Wound 3. Coverage of Left Foot Wound With 4 x 5 Inch (10 x 12.5 cm) Integra Bilayer Matrix Wound Dressing 4. Wound VAC Placement Surgeon: Moe Holland M.D. Straw Hat Plunger Operator: None Anesthesia: General Endotracheal Anesthesia EBL: Minimal Counts: Correct Complications: None Condition: Stable Findings: Wound was debrided to healthy bleeding tissue. Specimen: Necrotic tissue from left foot was discarded Indication: The patient is a 64-year-old male with a history of peripheral vascular disease and a transmetatarsal amputation who presented to the hospital with complaints of left foot pain and a poorly healing left transmetatarsal imitation. He is in need of debridement of the wound and was given the risk, benefits, and alternative procedures and consented to the procedure. Description of Procedure: The patient was brought to the operating room and laid in supine position. After timeout was performed general endotracheal anesthesia was achieved and his left foot was prepped and draped in normal sterile fashion. A combination of curved Mayos and a 10 blade was used to sharply excise necrotic tissue including the distal flap. Soft tissue and muscle was debrided to healthy tissue with bleeding edges. The Pulsavac was then used to further debride necrotic tissue from the wound. Once all necrotic tissue had been debrided it was noted that all remaining tissue was healthy and viable. The metatarsals were exposed and it was felt that a wound VAC would not adequately provide coverage so the decision was made to use a wound matrix for healing. I used a 4 x 5 inch Integra Bilayer Matrix Wound Dressing. I cut the wound matrix in half and then scraped the wound edges off of the silicone and used this to fill the deficits around the metatarsals. I then cut the remaining piece to the shape of the w ound and used an 11 blade to mesh the wound matrix. I secured the dressing in place using 3-0 chromic in interrupted fashion. I then covered this with Adaptic and then placed the wound VAC and gained an adequate seal. The wound VAC was placed on suction and again this demonstrated an adequate seal. I then dressed this with a Kerlix dressing. The patient tolerated the procedure well. All sponge, needle, and instrument counts were correct. The patient was transported to the recovery area in stable condition.
--- NOTE | 2020-08-20 17:23 | Post Anesthesia Evaluation ---
- Post Anesthesia Evaluation Patient Participated: Yes Airway Patent: Yes Stable Respiratory Function: Yes Nausea/Vomiting: No Temp > 96.8F: Yes Pain Manageable: Yes Adequeate Hydration: Yes Anesthesia Complications: No Block Receding Appropriately: Not Applicable Patient on Ventilator: No
[2020-08-20] MEDS: METOPROLOL TARTRATE 50 MG TAB PO SCH ×2 (17:41→22:49)
[2020-08-20] MEDS: THIAMINE 100 MG TAB PO SCH (17:42)
[2020-08-20] MEDS: CLOPIDOGREL 75 MG TAB PO SCH (17:42)
[2020-08-20] MEDS: levoFLOXacin 750 MG TAB PO SCH (17:42)
[2020-08-20] MEDS: FOLIC ACID 1 MG TAB PO SCH (17:42)
[2020-08-20] MEDS: amLODIPine 10 MG TAB PO SCH (17:42)
[2020-08-20] MEDS: PANTOPRAZOLE 40 MG TAB PO SCH (17:43)
[2020-08-21] MEDS: oxyCODONE /ACETAMINOPHEN 5-325MG TAB PO PRN ×3 (06:01→21:02)
[2020-08-21] MEDS: LACTATED RINGERS 1,000 ML IV SCH (06:06)
--- NOTE | 2020-08-21 07:44 | Progress Note ---
Assessment and Plan Assessment and plan: -- Necrosis of surgical wound h/o TMA on 07/30 he presented with increased bleeding from the wound Vascular consulted for further mx -- Peripheral vascular disease of lower extremity LLE revascularization done on 07/18 and 07/24 Continue antiplatelets and statin -- HTN (hypertension) continue antihypertensives --CAD (coronary artery disease) On Plavix, statin -- CHF (congestive heart failure), chronic diastolic and compensated 2D echo showed preserved EF We will hold the Lasix for now --Urinary retention, status post Renae placed on last admission Likely from BPH, urology f/u outpt --UTI, started on levaquin -- DVT prophylaxis On Heparin 08/16: Vascular surgeon following, cont supportive care. h/h stable. 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 Will require debridement and wound vac placement, but May require intervention to improve flow and ultimately mat require a BKA. cont supportive care for now, wait for surgical intervention. 08/18: Plan for OR Thursday for debridement of his left TMA with wound vac placement. cont supportive care 08/19: planned for TMA tomorrow, cont supportive care. negative for covid 08/20: planned for Nonhealing Left Transmetatarsal Amputation today followed by wound vac placement. cont abx, supportive care. 08/21; patient had left TMA with wound VAC placement, continue antibiotics for now and supportive care. Will follow with PT. patient is pending for placement. Patient is on 2 L of oxygen. History Interval history: Patient was seen and evaluated this morning Patient is status post left TMA Patient does not have pain or other complaints. Hospitalist Physical - Physical exam Narrative exam: Not in cardiopulmonary distress. The patient appeared well nourished and normally developed. Vital signs as documented. Head exam is unremarkable. No scleral icterus . Neck is without jugular venous distension, thyromegaly, or carotid bruits. Lungs are clear to auscultation. Cardiac exam reveals regular rate and Rhythm. Abdominal exam reveals normal bowel sounds, nontender, no organomegaly. Extremities; left TMA. 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 No focal weakness. - Constitutional Vitals: Temp Pulse Resp BP Pulse Ox 99.0 F 94 H 18 107/58 96 08/21/20 03:51 08/21/20 03:51 08/21/20 03:51 08/21/20 03:51 08/21/20 03:51 General appearance: Present: no acute distress, obese Results - Labs CBC & Chem 7: 08/21/20 08:14 08/21/20 08:14 Labs: Laboratory Last Values WBC 8.3 K/mm3 (4.5-11.0) 08/16/20 04:43 RBC 3.28 M/mm3 (3.65-5.03) L 08/16/20 04:43 Hgb 9.1 gm/dl (11.8-15.2) L 08/20/20 07:12 Hct 27.2 % (35.5-45.6) L 08/20/20 07:12 MCV 89 fl (84-94) 08/16/20 04:43 MCH 29 pg (28-32) 08/16/20 04:43 MCHC 33 % (32-34) 08/16/20 04:43 RDW 16.6 % (13.2-15.2) H 08/16/20 04:43 Plt Count 407 K/mm3 (140-440) 08/16/20 04:43 Lymph % (Auto) 31.9 % (13.4-35.0) 08/16/20 04:43 [place] % (Auto) 6.4 % (0.0-7.3) 08/16/20 04:43 Eos % (Auto) 4.9 % (0.0-4.3) H 08/16/20 04:43 Baso % (Auto) 0.9 % (0.0-1.8) 08/16/20 04:43 Lymph # (Auto) 2.7 K/mm3 (1.2-5.4) 08/16/20 04:43 [place] # (Auto) 0.5 K/mm3 (0.0-0.8) 08/16/20 04:43 Eos # (Auto) 0.4 K/mm3 (0.0-0.4) 08/16/20 04:43 Baso # (Auto) 0.1 K/mm3 (0.0-0.1) 08/16/20 04:43 Seg Neutrophils % 55.9 % (40.0-70.0) 08/16/20 04:43 Seg Neutrophils # 4.7 K/mm3 (1.8-7.7) 08/16/20 04:43 PT 14.7 Sec. (12.2-14.9) 08/20/20 07:12 INR 1.15 (0.87-1.13) H 08/20/20 07:12 Sodium 137 mmol/L (137-145) 08/20/20 07:12 Potassium 4.3 mmol/L (3.6-5.0) 08/20/20 07:12 Chloride 99.1 mmol/L (98-107) 08/20/20 07:12 Carbon Dioxide 29 mmol/L (22-30) 08/20/20 07:12 Anion Gap 13 mmol/L 08/20/20 07:12 BUN 15 mg/dL (9-20) 08/20/20 07:12 Creatinine 1.1 mg/dL (0.8-1.3) 08/20/20 07:12 Estimated GFR > 60 ml/min 08/20/20 07:12 BUN/Creatinine Ratio 14 % 08/20/20 07:12 Glucose 113 mg/dL (75-100) H 08/20/20 07:12 POC Glucose 139 mg/dL (70-105) H 08/20/20 22:34 Calcium 9.2 mg/dL (8.4-10.2) 08/20/20 07:12 Urine Color Yellow (Yellow) 08/15/20 Unknown Urine Turbidity Clear (Clear) 08/15/20 Unknown Urine pH 6.0 (5.0-7.0) 08/15/20 Unknown Ur Specific [place] 1.017 (1.003-1.030) 08/15/20 Unknown Urine Protein 100 mg/dl mg/dL (Negative) 08/15/20 Unknown Urine Glucose (UA) 50 mg/dL (Negative) 08/15/20 Unknown Urine Ketones Neg mg/dL (Negative) 08/15/20 Unknown Urine Blood Lg (Negative) 08/15/20 Unknown Urine Nitrite Neg (Negative) 08/15/20 Unknown Urine Bilirubin Neg (Negative) 08/15/20 Unknown Urine Urobilinogen < 2.0 mg/dL (<2.0) 08/15/20 Unknown Ur Leukocyte Esterase Sm (Negative) 08/15/20 Unknown Urine WBC (Auto) 31.0 /HPF (0.0-6.0) H 08/15/20 Unknown Urine RBC (Auto) 46.0 /HPF (0.0-6.0) 08/15/20 Unknown Urine Mucus Few /HPF 08/15/20 Unknown Coronavirus (PCR) Negative (Negative) 08/16/20 09:55 Renae/IV: Voiding Method Indwelling Catheter IV Catheter Type [Right INT / Saline Lock Forearm] IV Catheter Type [Left Hand] INT / Saline Lock Active Medications - Current Medications Current Medications: Generic Name Dose Route Start Last Admin Trade Name Freq PRN Reason Stop Dose Admin Acetaminophen 650 mg 08/15/20 18:13 Acetaminophen 325 Mg Tab PO Q4H PRN Pain MILD(1-3)/Fever >100.5/REYES Albuterol 2.5 mg 08/15/20 18:13 08/20/20 12:53 Albuterol 2.5 Mg/3 Ml Nebu IH 2.5 mg Q4HRT PRN Administration Shortness Of Breath Amlodipine Besylate 10 mg 08/16/20 10:00 08/20/20 17:42 Amlodipine 10 Mg Tab PO 10 mg QDAY DELFINO Administration Atorvastatin Calcium 40 mg 08/15/20 22:00 08/20/20 21:25 Atorvastatin 40 Mg Tab PO 40 mg QHS DELFINO Administration Cilostazol 100 mg 08/15/20 22:00 08/20/20 21:26 Cilostazol 100 Mg Tab PO 100 mg BID DELFINO Administration Clopidogrel Bisulfate 75 mg 08/16/20 10:00 08/20/20 17:42 Clopidogrel 75 Mg Tab PO Not Given QDAY DELFINO Folic Acid 1 mg 08/16/20 10:00 08/20/20 17:42 Folic Acid 1 Mg Tab PO 1 mg QDAY DELFINO Administration Lactated Ringer's 1,000 mls @ 75 mls/hr 08/20/20 12:45 08/21/20 06:06 Lactated Ringers IV 75 mls/hr DIRECT DELFINO Administration Levofloxacin 750 mg 08/16/20 10:00 08/20/20 17:42 Levofloxacin 750 Mg Tab PO 750 mg DAILY DELFINO Administration Protocol Metoprolol Tartrate 50 mg 08/15/20 22:00 08/20/20 22:49 Metoprolol Tartrate 50 Mg Tab PO Not Given BID DELFINO Morphine Sulfate 2 mg 08/15/20 18:13 Morphine 4 Mg/1 Ml Inj IV Q4H PRN Pain , Severe (7-10) Ondansetron HCl 4 mg 08/15/20 18:13 08/18/20 17:46 Ondansetron 4 Mg/2 Ml Inj IV 4 mg Q8H PRN Administration Nausea And Vomiting Ondansetron HCl 4 mg 08/20/20 12:33 Ondansetron 4 Mg/2 Ml Inj IV ONCE PRN Nausea And Vomiting Oxycodone/Acetaminophen 1 tab 08/15/20 18:13 08/21/20 06:01 Oxycodone /Acetaminophen 5-325mg Tab PO 1 tab Q6H PRN Administration Pain, Moderate (4-6) Oxycodone/Acetaminophen 2 tab 08/20/20 16:22 Oxycodone /Acetaminophen 5-325mg Tab PO Q6H PRN Pain , Severe (7-10) Pantoprazole Sodium 40 mg 08/16/20 07:30 08/20/20 17:43 Pantoprazole 40 Mg Tab PO Not Given QDAC DELFINO Sodium Chloride 10 ml 08/15/20 22:00 08/20/20 21:26 Sodium Chloride 0.9% 10 Ml Flush Syringe IV 10 ml BID DELFINO Administration Sodium Chloride 10 ml 08/15/20 18:13 Sodium Chloride 0.9% 10 Ml Flush Syringe IV PRN PRN LINE FLUSH Thiamine HCl 100 mg 08/16/20 10:00 08/20/20 17:42 Thiamine 100 Mg Tab PO 100 mg QDAY DELFINO Administration
[2020-08-21 08:46] LABS: Hemoglobin 8.9 gm/dl (11.8-15.2); Mean Corpuscular HGB Conc 33 % (32-34); Mean Corpuscular Volume 88 fl (84-94); Platelet Count 349 K/mm3 (140-440); Red Blood Count 3.08 M/mm3 (3.65-5.03); Red Cell Distribution Width 16.7 % (13.2-15.2)
[2020-08-21 09:04] LABS: BUN/Creatinine Ratio 13; Blood Urea Nitrogen 12 mg/dL (9-20); Calcium 8.7 mg/dL (8.4-10.2); Hemolysis Index 28
[2020-08-21] MEDS: levoFLOXacin 750 MG TAB PO SCH (11:30)
[2020-08-21] MEDS: CLOPIDOGREL 75 MG TAB PO SCH (11:30)
[2020-08-21] MEDS: amLODIPine 10 MG TAB PO SCH (11:30)
[2020-08-21] MEDS: FOLIC ACID 1 MG TAB PO SCH (11:30)
[2020-08-21] MEDS: THIAMINE 100 MG TAB PO SCH (11:30)
[2020-08-21] MEDS: METOPROLOL TARTRATE 50 MG TAB PO SCH ×2 (11:30→22:19)
[2020-08-21] MEDS: CILOSTAZOL 100 MG TAB PO SCH ×2 (11:30→22:19)
[2020-08-21] MEDS: PANTOPRAZOLE 40 MG TAB PO SCH (11:33)
[2020-08-21] MEDS: MORPHINE 4 MG/1 ML INJ IV PRN (13:57)
--- NOTE | 2020-08-21 15:32 | Progress Note ---
Assessment and Plan POD#1 s/p debridement of left TMA with placement of Wound Matrix and Wound VAC Patient is doing well Increase activity Discharge Planning Change Wound Vac in 5-7 days Subjective Date of service: 08/21/20 Interval history: Patient is without complaints. Objective - Constitutional Vitals: Vital Signs - 12hr 08/21/20 03:51 Temperature 99.0 F Pulse Rate 94 H Respiratory 18 Rate Blood Pressure 107/58 O2 Sat by Pulse 96 Oximetry General appearance: Present: no acute distress - Cardiovascular Rhythm: regular Extremities: pulses intact (Palpable right pedal pulses), normal temperature (left foot) Extremity abnormal: other (left foot wound vac in place with adequate seal) - Labs CBC & Chem 7: 08/21/20 08:14 08/21/20 08:14 Labs: Abnormal lab results 08/15/20 08/20/20 08/20/20 Range/Units 08:49 16:32 22:34 RBC (3.65-5.03) M/mm3 Hgb (11.8-15.2) gm/dl Hct (35.5-45.6) % RDW (13.2-15.2) % Sodium (137-145) mmol/L Glucose (75-100) mg/dL POC Glucose 212 H 107 H 139 H (70-105) mg/dL 08/21/20 08/21/20 08/21/20 Range/Units 07:42 08:14 08:14 RBC 3.08 L (3.65-5.03) M/mm3 Hgb 8.9 L (11.8-15.2) gm/dl Hct 27.0 L (35.5-45.6) % RDW 16.7 H (13.2-15.2) % Sodium 136 L (137-145) mmol/L Glucose 129 H (75-100) mg/dL POC Glucose 115 H (70-105) mg/dL 08/21/20 Range/Units 11:31 RBC (3.65-5.03) M/mm3 Hgb (11.8-15.2) gm/dl Hct (35.5-45.6) % RDW (13.2-15.2) % Sodium (137-145) mmol/L Glucose (75-100) mg/dL POC Glucose 132 H (70-105) mg/dL Medications & Allergies - Medications Allergies/Adverse Reactions: Allergies Penicillins Allergy (Verified 07/16/20 22:49) Hives Home Medications: Home Medications Medication Instructions Recorded Confirmed Last Taken Type AtorvaSTATin [Lipitor] 40 mg PO QHS 07/17/20 08/15/20 Unknown History Clopidogrel [Plavix] 75 mg PO QDAY 07/17/20 08/15/20 Unknown History Folic Acid [Folvite] 1 mg PO QDAY 07/17/20 08/15/20 Unknown History Metoprolol [Lopressor TAB] 50 mg PO BID 07/17/20 08/15/20 Unknown History Thiamine [Vitamin B-1] 100 mg PO QDAY 07/17/20 08/15/20 Unknown History Pantoprazole [Protonix TAB] 40 mg PO QDAC #30 tablet 08/06/20 08/15/20 Unknown Rx amLODIPine 10 mg PO QDAY #30 tablet 08/06/20 08/15/20 Unknown Rx cilostazoL [Pletal] 100 mg PO BID #60 tablet 08/06/20 08/15/20 Unknown Rx levoFLOXacin [Levaquin TAB] 750 mg PO DAILY #5 tablet 08/06/20 08/15/20 Unknown Rx oxyCODONE /ACETAMINOPHEN [Percocet 1 tab PO Q4H PRN #14 tablet 08/06/20 08/15/20 Unknown Rx 5/325 mg] Active Medications: Generic Name Dose Route Start Last Admin Trade Name Freq PRN Reason Stop Dose Admin Acetaminophen 650 mg 08/15/20 18:13 Acetaminophen 325 Mg Tab PO Q4H PRN Pain MILD(1-3)/Fever >100.5/REYES Albuterol 2.5 mg 08/15/20 18:13 08/20/20 12:53 Albuterol 2.5 Mg/3 Ml Nebu IH 2.5 mg Q4HRT PRN Administration Shortness Of Breath Amlodipine Besylate 10 mg 08/16/20 10:00 08/21/20 11:30 Amlodipine 10 Mg Tab PO 10 mg QDAY DEFLINO Administration Atorvastatin Calcium 40 mg 08/15/20 22:00 08/20/20 21:25 Atorvastatin 40 Mg Tab PO 40 mg QHS DELFINO Administration Cilostazol 100 mg 08/15/20 22:00 08/21/20 11:30 Cilostazol 100 Mg Tab PO 100 mg BID DELFINO Administration Clopidogrel Bisulfate 75 mg 08/16/20 10:00 08/21/20 11:30 Clopidogrel 75 Mg Tab PO 75 mg QDAY DELFINO Administration Folic Acid 1 mg 08/16/20 10:00 08/21/20 11:30 Folic Acid 1 Mg Tab PO 1 mg QDAY DELFINO Administration Lactated Ringer's 1,000 mls @ 75 mls/hr 08/20/20 12:45 08/21/20 06:06 Lactated Ringers IV 75 mls/hr DIRECT DELFINO Administration Levofloxacin 750 mg 08/16/20 10:00 08/21/20 11:30 Levofloxacin 750 Mg Tab PO 750 mg DAILY DELFINO Administration Protocol Metoprolol Tartrate 50 mg 08/15/20 22:00 08/21/20 11:30 Metoprolol Tartrate 50 Mg Tab PO 50 mg BID DELFINO Administration Morphine Sulfate 2 mg 08/15/20 18:13 08/21/20 13:57 Morphine 4 Mg/1 Ml Inj IV 2 mg Q4H PRN Administration Pain , Severe (7-10) Ondansetron HCl 4 mg 08/15/20 18:13 08/18/20 17:46 Ondansetron 4 Mg/2 Ml Inj IV 4 mg Q8H PRN Administration Nausea And Vomiting Ondansetron HCl 4 mg 08/20/20 12:33 Ondansetron 4 Mg/2 Ml Inj IV ONCE PRN Nausea And Vomiting Oxycodone/Acetaminophen 1 tab 08/15/20 18:13 08/21/20 11:31 Oxycodone /Acetaminophen 5-325mg Tab PO 1 tab Q6H PRN Administration Pain, Moderate (4-6) Oxycodone/Acetaminophen 2 tab 08/20/20 16:22 Oxycodone /Acetaminophen 5-325mg Tab PO Q6H PRN Pain , Severe (7-10) Pantoprazole Sodium 40 mg 08/16/20 07:30 08/21/20 11:33 Pantoprazole 40 Mg Tab PO 40 mg QDAC DELFINO Administration Sodium Chloride 10 ml 08/15/20 22:00 08/21/20 11:33 Sodium Chloride 0.9% 10 Ml Flush Syringe IV 10 ml BID DEFLINO Administration Sodium Chloride 10 ml 08/15/20 18:13 Sodium Chloride 0.9% 10 Ml Flush Syringe IV PRN PRN LINE FLUSH Thiamine HCl 100 mg 08/16/20 10:00 08/21/20 11:30 Thiamine 100 Mg Tab PO 100 mg QDAY DELFINO Administration
--- NOTE | 2020-08-22 07:44 | Progress Note ---
Assessment and Plan Assessment and plan: -- Necrosis of surgical wound h/o TMA on 07/30 he presented with increased bleeding from the wound Vascular consulted for further mx -- Peripheral vascular disease of lower extremity LLE revascularization done on 07/18 and 07/24 Continue antiplatelets and statin -- HTN (hypertension) continue antihypertensives --CAD (coronary artery disease) On Plavix, statin -- CHF (congestive heart failure), chronic diastolic and compensated 2D echo showed preserved EF We will hold the Lasix for now --Urinary retention, status post Renae placed on last admission Likely from BPH, urology f/u outpt --UTI, started on levaquin -- DVT prophylaxis On Heparin 08/16: Vascular surgeon following, cont supportive care. h/h stable. 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 Will require debridement and wound vac placement, but May require intervention to improve flow and ultimately mat require a BKA. cont supportive care for now, wait for surgical intervention. 08/18: Plan for OR Thursday for debridement of his left TMA with wound vac placement. cont supportive care 08/19: planned for TMA tomorrow, cont supportive care. negative for covid 08/20: planned for Nonhealing Left Transmetatarsal Amputation today followed by wound vac placement. cont abx, supportive care. 08/21; patient had left TMA with wound VAC placement, continue antibiotics for now and supportive care. Will follow with PT. patient is pending for placement. Patient is on 2 L of oxygen. 08/22/2020; patient is pending for SNF placement. Patient is on 2 L of oxygen. History Interval history: Patient was seen and evaluated this morning status post left TMA Patient does not have any complaints. Hospitalist Physical - Physical exam Narrative exam: Not in cardiopulmonary distress. The patient appeared well nourished and normally developed. Vital signs as documented. Head exam is unremarkable. No scleral icterus . Neck is without jugular venous distension, thyromegaly, or carotid bruits. Lungs are clear to auscultation. Cardiac exam reveals regular rate and Rhythm. Abdominal exam reveals normal bowel sounds, nontender, no organomegaly. Extremities; left TMA. 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 No focal weakness. - Constitutional Vitals: Temp Pulse Resp BP Pulse Ox 99.6 F 100 H 17 128/66 94 08/22/20 04:56 08/22/20 04:56 08/22/20 04:56 08/22/20 04:56 08/22/20 04:56 General appearance: Present: no acute distress Results - Labs CBC & Chem 7: 08/21/20 08:14 08/21/20 08:14 Labs: Laboratory Last Values WBC 7.3 K/mm3 (4.5-11.0) 08/21/20 08:14 RBC 3.08 M/mm3 (3.65-5.03) L 08/21/20 08:14 Hgb 8.9 gm/dl (11.8-15.2) L 08/21/20 08:14 Hct 27.0 % (35.5-45.6) L 08/21/20 08:14 MCV 88 fl (84-94) 08/21/20 08:14 MCH 29 pg (28-32) 08/21/20 08:14 MCHC 33 % (32-34) 08/21/20 08:14 RDW 16.7 % (13.2-15.2) H 08/21/20 08:14 Plt Count 349 K/mm3 (140-440) 08/21/20 08:14 Lymph % (Auto) 31.9 % (13.4-35.0) 08/16/20 04:43 [place] % (Auto) 6.4 % (0.0-7.3) 08/16/20 04:43 Eos % (Auto) 4.9 % (0.0-4.3) H 08/16/20 04:43 Baso % (Auto) 0.9 % (0.0-1.8) 08/16/20 04:43 Lymph # (Auto) 2.7 K/mm3 (1.2-5.4) 08/16/20 04:43 [place] # (Auto) 0.5 K/mm3 (0.0-0.8) 08/16/20 04:43 Eos # (Auto) 0.4 K/mm3 (0.0-0.4) 08/16/20 04:43 Baso # (Auto) 0.1 K/mm3 (0.0-0.1) 08/16/20 04:43 Seg Neutrophils % 55.9 % (40.0-70.0) 08/16/20 04:43 Seg Neutrophils # 4.7 K/mm3 (1.8-7.7) 08/16/20 04:43 PT 14.7 Sec. (12.2-14.9) 08/20/20 07:12 INR 1.15 (0.87-1.13) H 08/20/20 07:12 Sodium 136 mmol/L (137-145) L 08/21/20 08:14 Potassium 4.2 mmol/L (3.6-5.0) 08/21/20 08:14 Chloride 101.1 mmol/L (98-107) 08/21/20 08:14 Carbon Dioxide 29 mmol/L (22-30) 08/21/20 08:14 Anion Gap 10 mmol/L 08/21/20 08:14 BUN 12 mg/dL (9-20) 08/21/20 08:14 Creatinine 0.9 mg/dL (0.8-1.3) 08/21/20 08:14 Estimated GFR > 60 ml/min 08/21/20 08:14 BUN/Creatinine Ratio 13 % 08/21/20 08:14 Glucose 129 mg/dL (75-100) H 08/21/20 08:14 POC Glucose 132 mg/dL (70-105) H 08/21/20 11:31 Calcium 8.7 mg/dL (8.4-10.2) 08/21/20 08:14 Urine Color Yellow (Yellow) 08/15/20 Unknown Urine Turbidity Clear (Clear) 08/15/20 Unknown Urine pH 6.0 (5.0-7.0) 08/15/20 Unknown Ur Specific [place] 1.017 (1.003-1.030) 08/15/20 Unknown Urine Protein 100 mg/dl mg/dL (Negative) 08/15/20 Unknown Urine Glucose (UA) 50 mg/dL (Negative) 08/15/20 Unknown Urine Ketones Neg mg/dL (Negative) 08/15/20 Unknown Urine Blood Lg (Negative) 08/15/20 Unknown Urine Nitrite Neg (Negative) 08/15/20 Unknown Urine Bilirubin Neg (Negative) 08/15/20 Unknown Urine Urobilinogen < 2.0 mg/dL (<2.0) 08/15/20 Unknown Ur Leukocyte Esterase Sm (Negative) 08/15/20 Unknown Urine WBC (Auto) 31.0 /HPF (0.0-6.0) H 08/15/20 Unknown Urine RBC (Auto) 46.0 /HPF (0.0-6.0) 08/15/20 Unknown Urine Mucus Few /HPF 08/15/20 Unknown Coronavirus (PCR) Negative (Negative) 08/16/20 09:55 Renae/IV: Voiding Method Indwelling Catheter IV Catheter Type [Right Hand] INT / Saline Lock IV Catheter Type [Right INT / Saline Lock Forearm] IV Catheter Type [Left Hand] INT / Saline Lock Active Medications - Current Medications Current Medications: Generic Name Dose Route Start Last Admin Trade Name Freq PRN Reason Stop Dose Admin Acetaminophen 650 mg 08/15/20 18:13 Acetaminophen 325 Mg Tab PO Q4H PRN Pain MILD(1-3)/Fever >100.5/REYES Albuterol 2.5 mg 08/15/20 18:13 08/20/20 12:53 Albuterol 2.5 Mg/3 Ml Nebu IH 2.5 mg Q4HRT PRN Administration Shortness Of Breath Amlodipine Besylate 10 mg 08/16/20 10:00 08/21/20 11:30 Amlodipine 10 Mg Tab PO 10 mg QDAY DELFINO Administration Atorvastatin Calcium 40 mg 08/15/20 22:00 08/21/20 22:19 Atorvastatin 40 Mg Tab PO 40 mg QHS DELFINO Administration Cilostazol 100 mg 08/15/20 22:00 08/21/20 22:19 Cilostazol 100 Mg Tab PO 100 mg BID DELFINO Administration Clopidogrel Bisulfate 75 mg 08/16/20 10:00 08/21/20 11:30 Clopidogrel 75 Mg Tab PO 75 mg QDAY DELFINO Administration Folic Acid 1 mg 08/16/20 10:00 08/21/20 11:30 Folic Acid 1 Mg Tab PO 1 mg QDAY DELFINO Administration Lactated Ringer's 1,000 mls @ 75 mls/hr 08/20/20 12:45 08/21/20 06:06 Lactated Ringers IV 75 mls/hr DIRECT DELFINO Administration Levofloxacin 750 mg 08/16/20 10:00 08/21/20 11:30 Levofloxacin 750 Mg Tab PO 750 mg DAILY DELFINO Administration Protocol Metoprolol Tartrate 50 mg 08/15/20 22:00 08/21/20 22:19 Metoprolol Tartrate 50 Mg Tab PO 50 mg BID DELFINO Administration Morphine Sulfate 2 mg 08/15/20 18:13 08/21/20 13:57 Morphine 4 Mg/1 Ml Inj IV 2 mg Q4H PRN Administration Pain , Severe (7-10) Ondansetron HCl 4 mg 08/15/20 18:13 08/18/20 17:46 Ondansetron 4 Mg/2 Ml Inj IV 4 mg Q8H PRN Administration Nausea And Vomiting Ondansetron HCl 4 mg 08/20/20 12:33 Ondansetron 4 Mg/2 Ml Inj IV ONCE PRN Nausea And Vomiting Oxycodone/Acetaminophen 1 tab 08/15/20 18:13 08/21/20 21:02 Oxycodone /Acetaminophen 5-325mg Tab PO 1 tab Q6H PRN Administration Pain, Moderate (4-6) Oxycodone/Acetaminophen 2 tab 08/20/20 16:22 Oxycodone /Acetaminophen 5-325mg Tab PO Q6H PRN Pain , Severe (7-10) Pantoprazole Sodium 40 mg 08/16/20 07:30 08/21/20 11:33 Pantoprazole 40 Mg Tab PO 40 mg QDAC DELFINO Administration Sodium Chloride 10 ml 08/15/20 22:00 08/21/20 22:21 Sodium Chloride 0.9% 10 Ml Flush Syringe IV 10 ml BID DELFINO Administration Sodium Chloride 10 ml 08/15/20 18:13 Sodium Chloride 0.9% 10 Ml Flush Syringe IV PRN PRN LINE FLUSH Thiamine HCl 100 mg 08/16/20 10:00 08/21/20 11:30 Thiamine 100 Mg Tab PO 100 mg QDAY DELFINO Administration Nutrition/Malnutrition Assess - Dietary Evaluation Nutrition/Malnutrition Findings: Nutrition Notes Start: 08/21/20 14:41 Freq: Status: Active Protocol: Document 08/21/20 14:41 INDER (Rec: 08/21/20 14:46 INDER [id number]) Nutrition Notes Need for Assessment generated from: LOS Initial or Follow up Brief Note Current Diet Cardiac/Consistent CHO Height 5 ft 4 in Weight 87.2 kg [place] Body Weight (kg) 59.09 BMI 33.0 Weight Status Obese Subjective/Other Information Pt screened for LOS. He has consumed 79% of meals since admission. Percent of energy/protein needs met: 90% energy 75% pro Current % PO Good (75-100%) Minimum of two criteria No Is patient on ventilator? No Is Patient Ambulatory and/or Out of Bed No REE-([facility]-confined to bed) 1898.604 Kcal/Kg value to use for calculation 20 Approximate Energy Requirements Using 1744 kcal/Kg Calculation Used for Recommendations Kcal/kg Additional Notes Pro needs 1.25-1.5g/kg adjBW: 91-110g/day Fluid needs 1ml/kcal Nutrition Intervention Follow-Up By: 08/28/20 Additional Comments F/U: stable intakes, need for ONS and full assessment
[2020-08-22] MEDS: CLOPIDOGREL 75 MG TAB PO SCH (10:23)
[2020-08-22] MEDS: FOLIC ACID 1 MG TAB PO SCH (10:24)
[2020-08-22] MEDS: PANTOPRAZOLE 40 MG TAB PO SCH (10:24)
[2020-08-22] MEDS: oxyCODONE /ACETAMINOPHEN 5-325MG TAB PO PRN ×2 (10:24→19:45)
[2020-08-22] MEDS: amLODIPine 10 MG TAB PO SCH (10:24)
[2020-08-22] MEDS: levoFLOXacin 750 MG TAB PO SCH (10:24)
[2020-08-22] MEDS: THIAMINE 100 MG TAB PO SCH (10:24)
[2020-08-22] MEDS: METOPROLOL TARTRATE 50 MG TAB PO SCH ×2 (10:24→21:54)
[2020-08-22] MEDS: CILOSTAZOL 100 MG TAB PO SCH ×2 (10:26→21:54)
[2020-08-23] MEDS: oxyCODONE /ACETAMINOPHEN 5-325MG TAB PO PRN ×2 (03:31→21:39)
--- NOTE | 2020-08-23 08:05 | Progress Note ---
Assessment and Plan Assessment and plan: -- Necrosis of surgical wound h/o TMA on 07/30 he presented with increased bleeding from the wound Vascular consulted for further mx -- Peripheral vascular disease of lower extremity LLE revascularization done on 07/18 and 07/24 Continue antiplatelets and statin -- HTN (hypertension) continue antihypertensives --CAD (coronary artery disease) On Plavix, statin -- CHF (congestive heart failure), chronic diastolic and compensated 2D echo showed preserved EF We will hold the Lasix for now --Urinary retention, status post Renae placed on last admission Likely from BPH, urology f/u outpt --UTI, started on levaquin -- DVT prophylaxis On Heparin 08/16: Vascular surgeon following, cont supportive care. h/h stable. 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 Will require debridement and wound vac placement, but May require intervention to improve flow and ultimately mat require a BKA. cont supportive care for now, wait for surgical intervention. 08/18: Plan for OR Thursday for debridement of his left TMA with wound vac placement. cont supportive care 08/19: planned for TMA tomorrow, cont supportive care. negative for covid 08/20: planned for Nonhealing Left Transmetatarsal Amputation today followed by wound vac placement. cont abx, supportive care. 08/21; patient had left TMA with wound VAC placement, continue antibiotics for now and supportive care. Will follow with PT. patient is pending for placement. Patient is on 2 L of oxygen. 08/22/2020; patient is pending for SNF placement. Patient is on 2 L of oxygen. 08/23/2020; patient is status post left TMA with wound VAC. Patient is pending SNF placement. Patient is on 2 L of oxygen. History Interval history: Patient was seen and evaluated this morning status post left TMA Patient does not have any complaints. Hospitalist Physical - Physical exam Narrative exam: Not in cardiopulmonary distress. The patient appeared well nourished and normally developed. Vital signs as documented. Head exam is unremarkable. No scleral icterus . Neck is without jugular venous distension, thyromegaly, or carotid bruits. Lungs are clear to auscultation. Cardiac exam reveals regular rate and Rhythm. Abdominal exam reveals normal bowel sounds, nontender, no organomegaly. Extremities; left TMA. CLIENT PARTNER: Alert and oriented 3. No focal weakness. - Constitutional Vitals: Temp Pulse Resp BP Pulse Ox 97.1 F L 98 H 18 116/63 93 08/23/20 04:07 08/23/20 04:07 08/23/20 04:31 08/23/20 04:07 08/23/20 04:07 General appearance: Present: no acute distress Results - Labs CBC & Chem 7: 08/21/20 08:14 08/21/20 08:14 Labs: Laboratory Last Values WBC 7.3 K/mm3 (4.5-11.0) 08/21/20 08:14 RBC 3.08 M/mm3 (3.65-5.03) L 08/21/20 08:14 Hgb 8.9 gm/dl (11.8-15.2) L 08/21/20 08:14 Hct 27.0 % (35.5-45.6) L 08/21/20 08:14 MCV 88 fl (84-94) 08/21/20 08:14 MCH 29 pg (28-32) 08/21/20 08:14 MCHC 33 % (32-34) 08/21/20 08:14 RDW 16.7 % (13.2-15.2) H 08/21/20 08:14 Plt Count 349 K/mm3 (140-440) 08/21/20 08:14 Lymph % (Auto) 31.9 % (13.4-35.0) 08/16/20 04:43 [place] % (Auto) 6.4 % (0.0-7.3) 08/16/20 04:43 Eos % (Auto) 4.9 % (0.0-4.3) H 08/16/20 04:43 Baso % (Auto) 0.9 % (0.0-1.8) 08/16/20 04:43 Lymph # (Auto) 2.7 K/mm3 (1.2-5.4) 08/16/20 04:43 [place] # (Auto) 0.5 K/mm3 (0.0-0.8) 08/16/20 04:43 Eos # (Auto) 0.4 K/mm3 (0.0-0.4) 08/16/20 04:43 Baso # (Auto) 0.1 K/mm3 (0.0-0.1) 08/16/20 04:43 Seg Neutrophils % 55.9 % (40.0-70.0) 08/16/20 04:43 Seg Neutrophils # 4.7 K/mm3 (1.8-7.7) 08/16/20 04:43 PT 14.7 Sec. (12.2-14.9) 08/20/20 07:12 INR 1.15 (0.87-1.13) H 08/20/20 07:12 Sodium 136 mmol/L (137-145) L 08/21/20 08:14 Potassium 4.2 mmol/L (3.6-5.0) 08/21/20 08:14 Chloride 101.1 mmol/L (98-107) 08/21/20 08:14 Carbon Dioxide 29 mmol/L (22-30) 08/21/20 08:14 Anion Gap 10 mmol/L 08/21/20 08:14 BUN 12 mg/dL (9-20) 08/21/20 08:14 Creatinine 0.9 mg/dL (0.8-1.3) 08/21/20 08:14 Estimated GFR > 60 ml/min 08/21/20 08:14 BUN/Creatinine Ratio 13 % 08/21/20 08:14 Glucose 129 mg/dL (75-100) H 08/21/20 08:14 POC Glucose 132 mg/dL (70-105) H 08/21/20 11:31 Calcium 8.7 mg/dL (8.4-10.2) 08/21/20 08:14 Urine Color Yellow (Yellow) 08/15/20 Unknown Urine Turbidity Clear (Clear) 08/15/20 Unknown Urine pH 6.0 (5.0-7.0) 08/15/20 Unknown Ur Specific [place] 1.017 (1.003-1.030) 08/15/20 Unknown Urine Protein 100 mg/dl mg/dL (Negative) 08/15/20 Unknown Urine Glucose (UA) 50 mg/dL (Negative) 08/15/20 Unknown Urine Ketones Neg mg/dL (Negative) 08/15/20 Unknown Urine Blood Lg (Negative) 08/15/20 Unknown Urine Nitrite Neg (Negative) 08/15/20 Unknown Urine Bilirubin Neg (Negative) 08/15/20 Unknown Urine Urobilinogen < 2.0 mg/dL (<2.0) 08/15/20 Unknown Ur Leukocyte Esterase Sm (Negative) 08/15/20 Unknown Urine WBC (Auto) 31.0 /HPF (0.0-6.0) H 08/15/20 Unknown Urine RBC (Auto) 46.0 /HPF (0.0-6.0) 08/15/20 Unknown Urine Mucus Few /HPF 08/15/20 Unknown Coronavirus (PCR) Negative (Negative) 08/16/20 09:55 Renae/IV: Voiding Method Indwelling Catheter IV Catheter Type [Right Hand] INT / Saline Lock IV Catheter Type [Right INT / Saline Lock Forearm] IV Catheter Type [Left Hand] INT / Saline Lock Active Medications - Current Medications Current Medications: Generic Name Dose Route Start Last Admin Trade Name Freq PRN Reason Stop Dose Admin Acetaminophen 650 mg 08/15/20 18:13 Acetaminophen 325 Mg Tab PO Q4H PRN Pain MILD(1-3)/Fever >100.5/REYES Albuterol 2.5 mg 08/15/20 18:13 08/20/20 12:53 Albuterol 2.5 Mg/3 Ml Nebu IH 2.5 mg Q4HRT PRN Administration Shortness Of Breath Amlodipine Besylate 10 mg 08/16/20 10:00 08/22/20 10:24 Amlodipine 10 Mg Tab PO 10 mg QDAY DELFINO Administration Atorvastatin Calcium 40 mg 08/15/20 22:00 08/22/20 21:54 Atorvastatin 40 Mg Tab PO 40 mg QHS DELFINO Administration Cilostazol 100 mg 08/15/20 22:00 08/22/20 21:54 Cilostazol 100 Mg Tab PO 100 mg BID DELFINO Administration Clopidogrel Bisulfate 75 mg 08/16/20 10:00 08/22/20 10:23 Clopidogrel 75 Mg Tab PO 75 mg QDAY DELFINO Administration Folic Acid 1 mg 08/16/20 10:00 08/22/20 10:24 Folic Acid 1 Mg Tab PO 1 mg QDAY DELFINO Administration Lactated Ringer's 1,000 mls @ 75 mls/hr 08/20/20 12:45 08/21/20 06:06 Lactated Ringers IV 75 mls/hr DIRECT DELFINO Administration Levofloxacin 750 mg 08/16/20 10:00 08/22/20 10:24 Levofloxacin 750 Mg Tab PO 750 mg DAILY DELFINO Administration Protocol Metoprolol Tartrate 50 mg 08/15/20 22:00 08/22/20 21:54 Metoprolol Tartrate 50 Mg Tab PO Not Given BID DELFINO Morphine Sulfate 2 mg 08/15/20 18:13 08/21/20 13:57 Morphine 4 Mg/1 Ml Inj IV 2 mg Q4H PRN Administration Pain , Severe (7-10) Ondansetron HCl 4 mg 08/15/20 18:13 08/18/20 17:46 Ondansetron 4 Mg/2 Ml Inj IV 4 mg Q8H PRN Administration Nausea And Vomiting Ondansetron HCl 4 mg 08/20/20 12:33 Ondansetron 4 Mg/2 Ml Inj IV ONCE PRN Nausea And Vomiting Oxycodone/Acetaminophen 1 tab 08/15/20 18:13 08/23/20 03:31 Oxycodone /Acetaminophen 5-325mg Tab PO 1 tab Q6H PRN Administration Pain, Moderate (4-6) Oxycodone/Acetaminophen 2 tab 08/20/20 16:22 08/22/20 19:45 Oxycodone /Acetaminophen 5-325mg Tab PO 2 tab Q6H PRN Administration Pain , Severe (7-10) Pantoprazole Sodium 40 mg 08/16/20 07:30 08/22/20 10:24 Pantoprazole 40 Mg Tab PO 40 mg QDAC DELFINO Administration Sodium Chloride 10 ml 08/15/20 22:00 08/22/20 21:55 Sodium Chloride 0.9% 10 Ml Flush Syringe IV 10 ml BID DELFINO Administration Sodium Chloride 10 ml 08/15/20 18:13 Sodium Chloride 0.9% 10 Ml Flush Syringe IV PRN PRN LINE FLUSH Thiamine HCl 100 mg 08/16/20 10:00 08/22/20 10:24 Thiamine 100 Mg Tab PO 100 mg QDAY DELFINO Administration Nutrition/Malnutrition Assess - Dietary Evaluation Nutrition/Malnutrition Findings: Nutrition Notes Start: 08/21/20 14:41 Freq: Status: Active Protocol: Document 08/21/20 14:41 INDER (Rec: 08/21/20 14:46 INDER [id number]) Nutrition Notes Need for Assessment generated from: LOS Initial or Follow up Brief Note Current Diet Cardiac/Consistent CHO Height 5 ft 4 in Weight 87.2 kg [place] Body Weight (kg) 59.09 BMI 33.0 Weight Status Obese Subjective/Other Information Pt screened for LOS. He has consumed 79% of meals since admission. Percent of energy/protein needs met: 90% energy 75% pro Current % PO Good (75-100%) Minimum of two criteria No Is patient on ventilator? No Is Patient Ambulatory and/or Out of Bed No REE-([place]-confined to bed) 1898.604 Kcal/Kg value to use for calculation 20 Approximate Energy Requirements Using 1744 kcal/Kg Calculation Used for Recommendations Kcal/kg Additional Notes Pro needs 1.25-1.5g/kg adjBW: 91-110g/day Fluid needs 1ml/kcal Nutrition Intervention Follow-Up By: 08/28/20 Additional Comments F/U: stable intakes, need for ONS and full assessment
--- NOTE | 2020-08-23 10:50 | Progress Note ---
Assessment and Plan From a vascular standpoint, the patient is okay to be discharged at any point in time once his home health and wound VAC is in place. He will follow-up with us in 2 weeks after discharge. Subjective Date of service: 08/23/20 Principal diagnosis: PVD with gangrene/status post TMA and debridement Interval history: Patient is status post debridement with wound VAC placement of his TMA on the left. He is doing well with no significant complaints of pain. No significant drainage. Objective - Constitutional Vitals: Vital Signs - 12hr 08/23/20 08/23/20 08/23/20 03:31 04:07 04:31 Temperature 97.1 F L Pulse Rate 98 H Respiratory 20 18 18 Rate Blood Pressure 116/63 O2 Sat by Pulse 93 Oximetry General appearance: Present: no acute distress - EENT Eyes: EOM intact ENT: hearing intact - Neck Neck: normal ROM - Respiratory Respiratory effort: normal - Breasts Breasts: deferred Extremities: abnormal - Gastrointestinal General gastrointestinal: Present: deferred - Genitourinary Male genitourinary: deferred - Psychiatric Psychiatric: appropriate mood/affect, cooperative - Labs CBC & Chem 7: 08/21/20 08:14 08/21/20 08:14 Medications & Allergies - Medications Allergies/Adverse Reactions: Allergies Penicillins Allergy (Verified 07/16/20 22:49) Hives Home Medications: Home Medications Medication Instructions Recorded Confirmed Last Taken Type AtorvaSTATin [Lipitor] 40 mg PO QHS 07/17/20 08/15/20 Unknown History Clopidogrel [Plavix] 75 mg PO QDAY 07/17/20 08/15/20 Unknown History Folic Acid [Folvite] 1 mg PO QDAY 07/17/20 08/15/20 Unknown History Metoprolol [Lopressor TAB] 50 mg PO BID 07/17/20 08/15/20 Unknown History Thiamine [Vitamin B-1] 100 mg PO QDAY 07/17/20 08/15/20 Unknown History Pantoprazole [Protonix TAB] 40 mg PO QDAC #30 tablet 08/06/20 08/15/20 Unknown Rx amLODIPine 10 mg PO QDAY #30 tablet 08/06/20 08/15/20 Unknown Rx cilostazoL [Pletal] 100 mg PO BID #60 tablet 08/06/20 08/15/20 Unknown Rx levoFLOXacin [Levaquin TAB] 750 mg PO DAILY #5 tablet 08/06/20 08/15/20 Unknown Rx oxyCODONE /ACETAMINOPHEN [Percocet 1 tab PO Q4H PRN #14 tablet 08/06/20 08/15/20 Unknown Rx 5/325 mg] Active Medications: Generic Name Dose Route Start Last Admin Trade Name Freq PRN Reason Stop Dose Admin Acetaminophen 650 mg 08/15/20 18:13 Acetaminophen 325 Mg Tab PO Q4H PRN Pain MILD(1-3)/Fever >100.5/REYES Albuterol 2.5 mg 08/15/20 18:13 08/20/20 12:53 Albuterol 2.5 Mg/3 Ml Nebu IH 2.5 mg Q4HRT PRN Administration Shortness Of Breath Amlodipine Besylate 10 mg 08/16/20 10:00 08/22/20 10:24 Amlodipine 10 Mg Tab PO 10 mg QDAY DELFINO Administration Atorvastatin Calcium 40 mg 08/15/20 22:00 08/22/20 21:54 Atorvastatin 40 Mg Tab PO 40 mg QHS DELFINO Administration Cilostazol 100 mg 08/15/20 22:00 08/22/20 21:54 Cilostazol 100 Mg Tab PO 100 mg BID DELFINO Administration Clopidogrel Bisulfate 75 mg 08/16/20 10:00 08/22/20 10:23 Clopidogrel 75 Mg Tab PO 75 mg QDAY DELFINO Administration Folic Acid 1 mg 08/16/20 10:00 08/22/20 10:24 Folic Acid 1 Mg Tab PO 1 mg QDAY DELFINO Administration Lactated Ringer's 1,000 mls @ 75 mls/hr 08/20/20 12:45 08/21/20 06:06 Lactated Ringers IV 75 mls/hr DIRECT DELFINO Administration Levofloxacin 750 mg 08/16/20 10:00 08/22/20 10:24 Levofloxacin 750 Mg Tab PO 750 mg DAILY DELFINO Administration Protocol Metoprolol Tartrate 50 mg 08/15/20 22:00 08/22/20 21:54 Metoprolol Tartrate 50 Mg Tab PO Not Given BID DELFINO Morphine Sulfate 2 mg 08/15/20 18:13 08/21/20 13:57 Morphine 4 Mg/1 Ml Inj IV 2 mg Q4H PRN Administration Pain , Severe (7-10) Ondansetron HCl 4 mg 08/15/20 18:13 08/18/20 17:46 Ondansetron 4 Mg/2 Ml Inj IV 4 mg Q8H PRN Administration Nausea And Vomiting Ondansetron HCl 4 mg 08/20/20 12:33 Ondansetron 4 Mg/2 Ml Inj IV ONCE PRN Nausea And Vomiting Oxycodone/Acetaminophen 1 tab 08/15/20 18:13 08/23/20 03:31 Oxycodone /Acetaminophen 5-325mg Tab PO 1 tab Q6H PRN Administration Pain, Moderate (4-6) Oxycodone/Acetaminophen 2 tab 08/20/20 16:22 08/22/20 19:45 Oxycodone /Acetaminophen 5-325mg Tab PO 2 tab Q6H PRN Administration Pain , Severe (7-10) Pantoprazole Sodium 40 mg 08/16/20 07:30 08/22/20 10:24 Pantoprazole 40 Mg Tab PO 40 mg QDAC DELFINO Administration Sodium Chloride 10 ml 08/15/20 22:00 08/22/20 21:55 Sodium Chloride 0.9% 10 Ml Flush Syringe IV 10 ml BID DELFINO Administration Sodium Chloride 10 ml 08/15/20 18:13 Sodium Chloride 0.9% 10 Ml Flush Syringe IV PRN PRN LINE FLUSH Thiamine HCl 100 mg 08/16/20 10:00 08/22/20 10:24 Thiamine 100 Mg Tab PO 100 mg QDAY DELFINO Administration
[2020-08-23] MEDS: levoFLOXacin 750 MG TAB PO SCH (11:54)
[2020-08-23] MEDS: FOLIC ACID 1 MG TAB PO SCH (11:54)
[2020-08-23] MEDS: PANTOPRAZOLE 40 MG TAB PO SCH (11:54)
[2020-08-23] MEDS: amLODIPine 10 MG TAB PO SCH (11:54)
[2020-08-23] MEDS: CLOPIDOGREL 75 MG TAB PO SCH (11:55)
[2020-08-23] MEDS: THIAMINE 100 MG TAB PO SCH (11:55)
[2020-08-23] MEDS: CILOSTAZOL 100 MG TAB PO SCH ×2 (11:55→21:40)
[2020-08-23] MEDS: METOPROLOL TARTRATE 50 MG TAB PO SCH ×2 (11:55→21:41)
[2020-08-23] MEDS: MORPHINE 4 MG/1 ML INJ IV PRN (11:55)
[2020-08-24] MEDS: MORPHINE 4 MG/1 ML INJ IV PRN ×2 (06:15→11:42)
[2020-08-24] MEDS: PANTOPRAZOLE 40 MG TAB PO SCH (07:30)
[2020-08-24] MEDS: FOLIC ACID 1 MG TAB PO SCH (09:48)
[2020-08-24] MEDS: CLOPIDOGREL 75 MG TAB PO SCH (09:49)
[2020-08-24] MEDS: THIAMINE 100 MG TAB PO SCH (09:49)
[2020-08-24] MEDS: amLODIPine 10 MG TAB PO SCH (09:49)
[2020-08-24] MEDS: levoFLOXacin 750 MG TAB PO SCH (09:49)
[2020-08-24] MEDS: METOPROLOL TARTRATE 50 MG TAB PO SCH ×2 (09:49→23:11)
[2020-08-24] MEDS: CILOSTAZOL 100 MG TAB PO SCH ×2 (09:50→23:10)
--- NOTE | 2020-08-24 13:38 | Progress Note ---
Assessment and Plan Assessment and plan: --Sepsis secondary to UTI/febrile illness T-max 101 F Antipyretics, continue Levaquin, decrease IV morphine dose Blood cultures , urine cultures negative to date plenty oral fluids, supportive care -- Necrosis of surgical wound h/o TMA on 07/30 he presented with increased bleeding from the wound Vascular consulted for further mx -- Peripheral vascular disease of lower extremity LLE revascularization done on 07/18 and 07/24 Continue antiplatelets and statin -- HTN (hypertension) continue antihypertensives --CAD (coronary artery disease) On Plavix, statin -- CHF (congestive heart failure), chronic diastolic and compensated 2D echo showed preserved EF We will hold the Lasix for now --Urinary retention, status post Renae placed on last admission Likely from BPH, urology f/u outpt --Sepsis secondary to UTI, started on levaquin --Obesity; BMI 33.6, patient needs weight reduction when medically stable -- DVT prophylaxis;On Heparin We will closely monitor patient and adjust the management as needed Plan of care reviewed with the patient and his nurse 08/16: Vascular surgeon following, cont supportive care. h/h stable. 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 Will require debridement and wound vac placement, but May require intervention to improve flow and ultimately mat require a BKA. cont supportive care for now, wait for surgical intervention. 08/18: Plan for OR Thursday for debridement of his left TMA with wound vac placement. cont supportive care 08/19: planned for TMA tomorrow, cont supportive care. negative for covid 08/20: planned for Nonhealing Left Transmetatarsal Amputation today followed by wound vac placement. cont abx, supportive care. 08/21; patient had left TMA with wound VAC placement, continue antibiotics for now and supportive care. Will follow with PT. patient is pending for placement. Patient is on 2 L of oxygen. 08/22/2020; patient is pending for SNF placement. Patient is on 2 L of oxygen. 08/23/2020; patient is status post left TMA with wound VAC. Patient is pending SNF placement. Patient is on 2 L of oxygen. 08/24/2020; febrile T-max 101 F, patient is receiving Levaquin for his UTI, urine cultures negative, will send blood cultures Managed with antipyretics, supportive care, discussed with patient extensively these findings Closely monitor patient and adjust management as needed Plan of care reviewed with the patient and his nurse History Interval history: I have seen and examined the patient at the bedside today Patient's chart and medications reviewed Patient has intermittent fevers, T-max 101 degrees fall in height Patient is already on Levaquin Complains of generalized weakness Vital signs stable Hospitalist Physical - Constitutional Vitals: Temp Pulse Resp BP Pulse Ox 99.3 F 67 18 112/58 91 08/24/20 05:57 08/24/20 05:57 08/24/20 05:57 08/24/20 05:57 08/24/20 05:57 General appearance: Present: mild distress, other (Febrile T-max 101 F) - EENT Eyes: Present: PERRL, EOM intact - Neck Neck: Present: supple, normal ROM - Respiratory Respiratory effort: normal Respiratory: bilateral: diminished, negative: rales, rhonchi, wheezing - Cardiovascular Rhythm: regular Heart Sounds: Present: S1 & S2 - Extremities Extremities: no ischemia, No edema, abnormal (Dressing in place) - Abdominal General gastrointestinal: soft, non-tender, non-distended, normal bowel sounds - Integumentary Integumentary: Present: clear, warm - Psychiatric Psychiatric: appropriate mood/affect, cooperative - Neurologic Neurologic: moves all extremities Results - Labs CBC & Chem 7: 08/21/20 08:14 08/21/20 08:14 Labs: Laboratory Last Values WBC 7.3 K/mm3 (4.5-11.0) 08/21/20 08:14 RBC 3.08 M/mm3 (3.65-5.03) L 08/21/20 08:14 Hgb 8.9 gm/dl (11.8-15.2) L 08/21/20 08:14 Hct 27.0 % (35.5-45.6) L 08/21/20 08:14 MCV 88 fl (84-94) 08/21/20 08:14 MCH 29 pg (28-32) 08/21/20 08:14 MCHC 33 % (32-34) 08/21/20 08:14 RDW 16.7 % (13.2-15.2) H 08/21/20 08:14 Plt Count 349 K/mm3 (140-440) 08/21/20 08:14 Lymph % (Auto) 31.9 % (13.4-35.0) 08/16/20 04:43 [place] % (Auto) 6.4 % (0.0-7.3) 08/16/20 04:43 Eos % (Auto) 4.9 % (0.0-4.3) H 08/16/20 04:43 Baso % (Auto) 0.9 % (0.0-1.8) 08/16/20 04:43 Lymph # (Auto) 2.7 K/mm3 (1.2-5.4) 08/16/20 04:43 [place] # (Auto) 0.5 K/mm3 (0.0-0.8) 08/16/20 04:43 Eos # (Auto) 0.4 K/mm3 (0.0-0.4) 08/16/20 04:43 Baso # (Auto) 0.1 K/mm3 (0.0-0.1) 08/16/20 04:43 Seg Neutrophils % 55.9 % (40.0-70.0) 08/16/20 04:43 Seg Neutrophils # 4.7 K/mm3 (1.8-7.7) 08/16/20 04:43 PT 14.7 Sec. (12.2-14.9) 08/20/20 07:12 INR 1.15 (0.87-1.13) H 08/20/20 07:12 Sodium 136 mmol/L (137-145) L 08/21/20 08:14 Potassium 4.2 mmol/L (3.6-5.0) 08/21/20 08:14 Chloride 101.1 mmol/L (98-107) 08/21/20 08:14 Carbon Dioxide 29 mmol/L (22-30) 08/21/20 08:14 Anion Gap 10 mmol/L 08/21/20 08:14 BUN 12 mg/dL (9-20) 08/21/20 08:14 Creatinine 0.9 mg/dL (0.8-1.3) 08/21/20 08:14 Estimated GFR > 60 ml/min 08/21/20 08:14 BUN/Creatinine Ratio 13 % 08/21/20 08:14 Glucose 129 mg/dL (75-100) H 08/21/20 08:14 POC Glucose 126 mg/dL (70-105) H 08/24/20 10:57 Calcium 8.7 mg/dL (8.4-10.2) 08/21/20 08:14 Urine Color Yellow (Yellow) 08/15/20 Unknown Urine Turbidity Clear (Clear) 08/15/20 Unknown Urine pH 6.0 (5.0-7.0) 08/15/20 Unknown Ur Specific [place] 1.017 (1.003-1.030) 08/15/20 Unknown Urine Protein 100 mg/dl mg/dL (Negative) 08/15/20 Unknown Urine Glucose (UA) 50 mg/dL (Negative) 08/15/20 Unknown Urine Ketones Neg mg/dL (Negative) 08/15/20 Unknown Urine Blood Lg (Negative) 08/15/20 Unknown Urine Nitrite Neg (Negative) 08/15/20 Unknown Urine Bilirubin Neg (Negative) 08/15/20 Unknown Urine Urobilinogen < 2.0 mg/dL (<2.0) 08/15/20 Unknown Ur Leukocyte Esterase Sm (Negative) 08/15/20 Unknown Urine WBC (Auto) 31.0 /HPF (0.0-6.0) H 08/15/20 Unknown Urine RBC (Auto) 46.0 /HPF (0.0-6.0) 08/15/20 Unknown Urine Mucus Few /HPF 08/15/20 Unknown Coronavirus (PCR) Negative (Negative) 08/16/20 09:55 Renae/IV: Voiding Method Indwelling Catheter IV Catheter Type [Right Hand] INT / Saline Lock IV Catheter Type [Right INT / Saline Lock Forearm] IV Catheter Type [Left Hand] INT / Saline Lock Active Medications - Current Medications Current Medications: Generic Name Dose Route Start Last Admin Trade Name Freq PRN Reason Stop Dose Admin Acetaminophen 650 mg 08/15/20 18:13 Acetaminophen 325 Mg Tab PO Q4H PRN Pain MILD(1-3)/Fever >100.5/REYES Albuterol 2.5 mg 08/15/20 18:13 08/20/20 12:53 Albuterol 2.5 Mg/3 Ml Nebu IH 2.5 mg Q4HRT PRN Administration Shortness Of Breath Amlodipine Besylate 10 mg 08/16/20 10:00 08/24/20 09:49 Amlodipine 10 Mg Tab PO 10 mg QDAY DELFINO Administration Atorvastatin Calcium 40 mg 08/15/20 22:00 08/23/20 21:40 Atorvastatin 40 Mg Tab PO 40 mg QHS DELFINO Administration Cilostazol 100 mg 08/15/20 22:00 08/24/20 09:50 Cilostazol 100 Mg Tab PO 100 mg BID DELFINO Administration Clopidogrel Bisulfate 75 mg 08/16/20 10:00 08/24/20 09:49 Clopidogrel 75 Mg Tab PO 75 mg QDAY DELFINO Administration Folic Acid 1 mg 08/16/20 10:00 08/24/20 09:48 Folic Acid 1 Mg Tab PO 1 mg QDAY DELFINO Administration Lactated Ringer's 1,000 mls @ 75 mls/hr 08/20/20 12:45 08/21/20 06:06 Lactated Ringers IV 75 mls/hr DIRECT DELFINO Administration Levofloxacin 750 mg 08/16/20 10:00 08/24/20 09:49 Levofloxacin 750 Mg Tab PO 750 mg DAILY DELFINO Administration Protocol Metoprolol Tartrate 50 mg 08/15/20 22:00 08/24/20 09:49 Metoprolol Tartrate 50 Mg Tab PO 50 mg BID DELFINO Administration Morphine Sulfate 2 mg 08/15/20 18:13 08/24/20 11:42 Morphine 4 Mg/1 Ml Inj IV 2 mg Q4H PRN Administration Pain , Severe (7-10) Ondansetron HCl 4 mg 08/15/20 18:13 08/18/20 17:46 Ondansetron 4 Mg/2 Ml Inj IV 4 mg Q8H PRN Administration Nausea And Vomiting Ondansetron HCl 4 mg 08/20/20 12:33 Ondansetron 4 Mg/2 Ml Inj IV ONCE PRN Nausea And Vomiting Oxycodone/Acetaminophen 1 tab 08/15/20 18:13 08/23/20 21:39 Oxycodone /Acetaminophen 5-325mg Tab PO 1 tab Q6H PRN Administration Pain, Moderate (4-6) Oxycodone/Acetaminophen 2 tab 08/20/20 16:22 08/22/20 19:45 Oxycodone /Acetaminophen 5-325mg Tab PO 2 tab Q6H PRN Administration Pain , Severe (7-10) Pantoprazole Sodium 40 mg 08/16/20 07:30 08/24/20 07:30 Pantoprazole 40 Mg Tab PO 40 mg QDAC DELFINO Administration Sodium Chloride 10 ml 08/15/20 22:00 08/24/20 09:49 Sodium Chloride 0.9% 10 Ml Flush Syringe IV 10 ml BID DELFINO Administration Sodium Chloride 10 ml 08/15/20 18:13 Sodium Chloride 0.9% 10 Ml Flush Syringe IV PRN PRN LINE FLUSH Thiamine HCl 100 mg 08/16/20 10:00 08/24/20 09:49 Thiamine 100 Mg Tab PO 100 mg QDAY DELFINO Administration Nutrition/Malnutrition Assess - Dietary Evaluation Nutrition/Malnutrition Findings: Nutrition Notes Start: 08/21/20 14:41 Freq: Status: Active Protocol: Document 08/21/20 14:41 INDER (Rec: 08/21/20 14:46 INDER [email or web address]) Nutrition Notes Need for Assessment generated from: LOS Initial or Follow up Brief Note Current Diet Cardiac/Consistent CHO Height 5 ft 4 in Weight 87.2 kg [place] Body Weight (kg) 59.09 BMI 33.0 Weight Status Obese Subjective/Other Information Pt screened for LOS. He has consumed 79% of meals since admission. Percent of energy/protein needs met: 90% energy 75% pro Current % PO Good (75-100%) Minimum of two criteria No Is patient on ventilator? No Is Patient Ambulatory and/or Out of Bed No REE-([facility]-confined to bed) 1898.604 Kcal/Kg value to use for calculation 20 Approximate Energy Requirements Using 1744 kcal/Kg Calculation Used for Recommendations Kcal/kg Additional Notes Pro needs 1.25-1.5g/kg adjBW: 91-110g/day Fluid needs 1ml/kcal Nutrition Intervention Follow-Up By: 08/28/20 Additional Comments F/U: stable intakes, need for ONS and full assessment
[2020-08-24] MEDS: ACETAMINOPHEN 325 MG TAB PO PRN (17:52)
[2020-08-24] MEDS: oxyCODONE /ACETAMINOPHEN 5-325MG TAB PO PRN (21:06)
[2020-08-25] MEDS: PANTOPRAZOLE 40 MG TAB PO SCH (07:30)
[2020-08-25] MEDS: levoFLOXacin 750 MG TAB PO SCH (09:10)
[2020-08-25] MEDS: CLOPIDOGREL 75 MG TAB PO SCH (09:10)
[2020-08-25] MEDS: CILOSTAZOL 100 MG TAB PO SCH ×2 (09:10→22:28)
[2020-08-25] MEDS: THIAMINE 100 MG TAB PO SCH (09:11)
[2020-08-25] MEDS: FOLIC ACID 1 MG TAB PO SCH (09:11)
[2020-08-25] MEDS: METOPROLOL TARTRATE 50 MG TAB PO SCH ×2 (09:11→23:21)
[2020-08-25] MEDS: amLODIPine 10 MG TAB PO SCH (09:11)
[2020-08-25] MEDS: MORPHINE 4 MG/1 ML INJ IV PRN (11:58)
[2020-08-25] MEDS: oxyCODONE /ACETAMINOPHEN 5-325MG TAB PO PRN (17:25)
--- NOTE | 2020-08-25 18:41 | Progress Note ---
Assessment and Plan Assessment and plan: --Sepsis secondary to UTI/febrile illness T-max 101 F Antipyretics, continue Levaquin, decrease IV morphine dose Blood cultures , urine cultures negative to date plenty oral fluids, supportive care -- Necrosis of surgical wound h/o TMA on 07/30 he presented with increased bleeding from the wound Vascular consulted for further mx -- Peripheral vascular disease of lower extremity LLE revascularization done on 07/18 and 07/24 Continue antiplatelets and statin -- HTN (hypertension) continue antihypertensives --CAD (coronary artery disease) On Plavix, statin -- CHF (congestive heart failure), chronic diastolic and compensated 2D echo showed preserved EF We will hold the Lasix for now --Urinary retention, status post Renae placed on last admission Likely from BPH, urology f/u outpt --Sepsis secondary to UTI, started on levaquin --Obesity; BMI 33.6, patient needs weight reduction when medically stable -- DVT prophylaxis;On Heparin We will closely monitor patient and adjust the management as needed Plan of care reviewed with the patient and his nurse 08/16: Vascular surgeon following, cont supportive care. h/h stable. 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 Will require debridement and wound vac placement, but May require intervention to improve flow and ultimately mat require a BKA. cont supportive care for now, wait for surgical intervention. 08/18: Plan for OR Thursday for debridement of his left TMA with wound vac placement. cont supportive care 08/19: planned for TMA tomorrow, cont supportive care. negative for covid 08/20: planned for Nonhealing Left Transmetatarsal Amputation today followed by wound vac placement. cont abx, supportive care. 08/21; patient had left TMA with wound VAC placement, continue antibiotics for now and supportive care. Will follow with PT. patient is pending for placement. Patient is on 2 L of oxygen. 08/22/2020; patient is pending for SNF placement. Patient is on 2 L of oxygen. 08/23/2020; patient is status post left TMA with wound VAC. Patient is pending SNF placement. Patient is on 2 L of oxygen. 08/24/2020; febrile T-max 101 F, patient is receiving Levaquin for his UTI, urine cultures negative, will send blood cultures Managed with antipyretics, supportive care, discussed with patient extensively these findings Closely monitor patient and adjust management as needed Plan of care reviewed with the patient and his nurse History Interval history: In and examined the patient at the bedside Patient feels slightly better Vital signs noted No new complaints Hospitalist Physical - Constitutional Vitals: Temp Pulse Resp BP Pulse Ox 98.5 F 97 H 22 131/75 93 08/25/20 11:51 08/25/20 11:51 08/25/20 11:51 08/25/20 11:51 08/25/20 11:51 General appearance: Present: mild distress, well-nourished, obese, other (Febrile T-max 101 F) - EENT Eyes: Present: PERRL, EOM intact - Neck Neck: Present: supple, normal ROM - Respiratory Respiratory effort: normal Respiratory: bilateral: diminished, negative: rales, rhonchi, wheezing - Cardiovascular Rhythm: regular Heart Sounds: Present: S1 & S2 - Extremities Extremities: no ischemia, No edema - Abdominal General gastrointestinal: soft, non-tender, non-distended, normal bowel sounds - Integumentary Integumentary: Present: clear, warm - Psychiatric Psychiatric: appropriate mood/affect, cooperative - Neurologic Neurologic: CNII-XII intact, moves all extremities Results - Labs CBC & Chem 7: 08/21/20 08:14 08/21/20 08:14 Labs: Laboratory Last Values WBC 7.3 K/mm3 (4.5-11.0) 08/21/20 08:14 RBC 3.08 M/mm3 (3.65-5.03) L 08/21/20 08:14 Hgb 8.9 gm/dl (11.8-15.2) L 08/21/20 08:14 Hct 27.0 % (35.5-45.6) L 08/21/20 08:14 MCV 88 fl (84-94) 08/21/20 08:14 MCH 29 pg (28-32) 08/21/20 08:14 MCHC 33 % (32-34) 08/21/20 08:14 RDW 16.7 % (13.2-15.2) H 08/21/20 08:14 Plt Count 349 K/mm3 (140-440) 08/21/20 08:14 Lymph % (Auto) 31.9 % (13.4-35.0) 08/16/20 04:43 [place] % (Auto) 6.4 % (0.0-7.3) 08/16/20 04:43 Eos % (Auto) 4.9 % (0.0-4.3) H 08/16/20 04:43 Baso % (Auto) 0.9 % (0.0-1.8) 08/16/20 04:43 Lymph # (Auto) 2.7 K/mm3 (1.2-5.4) 08/16/20 04:43 [place] # (Auto) 0.5 K/mm3 (0.0-0.8) 08/16/20 04:43 Eos # (Auto) 0.4 K/mm3 (0.0-0.4) 08/16/20 04:43 Baso # (Auto) 0.1 K/mm3 (0.0-0.1) 08/16/20 04:43 Seg Neutrophils % 55.9 % (40.0-70.0) 08/16/20 04:43 Seg Neutrophils # 4.7 K/mm3 (1.8-7.7) 08/16/20 04:43 PT 14.7 Sec. (12.2-14.9) 08/20/20 07:12 INR 1.15 (0.87-1.13) H 08/20/20 07:12 Sodium 136 mmol/L (137-145) L 08/21/20 08:14 Potassium 4.2 mmol/L (3.6-5.0) 08/21/20 08:14 Chloride 101.1 mmol/L (98-107) 08/21/20 08:14 Carbon Dioxide 29 mmol/L (22-30) 08/21/20 08:14 Anion Gap 10 mmol/L 08/21/20 08:14 BUN 12 mg/dL (9-20) 08/21/20 08:14 Creatinine 0.9 mg/dL (0.8-1.3) 08/21/20 08:14 Estimated GFR > 60 ml/min 08/21/20 08:14 BUN/Creatinine Ratio 13 % 08/21/20 08:14 Glucose 129 mg/dL (75-100) H 08/21/20 08:14 POC Glucose 105 mg/dL (70-105) 08/25/20 11:51 Calcium 8.7 mg/dL (8.4-10.2) 08/21/20 08:14 Urine Color Yellow (Yellow) 08/15/20 Unknown Urine Turbidity Clear (Clear) 08/15/20 Unknown Urine pH 6.0 (5.0-7.0) 08/15/20 Unknown Ur Specific [place] 1.017 (1.003-1.030) 08/15/20 Unknown Urine Protein 100 mg/dl mg/dL (Negative) 08/15/20 Unknown Urine Glucose (UA) 50 mg/dL (Negative) 08/15/20 Unknown Urine Ketones Neg mg/dL (Negative) 08/15/20 Unknown Urine Blood Lg (Negative) 08/15/20 Unknown Urine Nitrite Neg (Negative) 08/15/20 Unknown Urine Bilirubin Neg (Negative) 08/15/20 Unknown Urine Urobilinogen < 2.0 mg/dL (<2.0) 08/15/20 Unknown Ur Leukocyte Esterase Sm (Negative) 08/15/20 Unknown Urine WBC (Auto) 31.0 /HPF (0.0-6.0) H 08/15/20 Unknown Urine RBC (Auto) 46.0 /HPF (0.0-6.0) 08/15/20 Unknown Urine Mucus Few /HPF 08/15/20 Unknown Coronavirus (PCR) Negative (Negative) 08/16/20 09:55 Microbiology: Microbiology 08/24/20 19:32 Peripheral/Venous Blood Culture - Preliminary Culture in Progress 08/24/20 19:37 Peripheral/Venous Blood Culture - Preliminary Culture in Progress Renae/IV: Voiding Method Indwelling Catheter IV Catheter Type [Right Hand] INT / Saline Lock IV Catheter Type [Right INT / Saline Lock Forearm] IV Catheter Type [Left Hand] INT / Saline Lock Active Medications - Current Medications Current Medications: Generic Name Dose Route Start Last Admin Trade Name Freq PRN Reason Stop Dose Admin Acetaminophen 650 mg 08/15/20 18:13 08/24/20 17:52 Acetaminophen 325 Mg Tab PO 650 mg Q4H PRN Administration Pain MILD(1-3)/Fever >100.5/REYES Albuterol 2.5 mg 08/15/20 18:13 08/20/20 12:53 Albuterol 2.5 Mg/3 Ml Nebu IH 2.5 mg Q4HRT PRN Administration Shortness Of Breath Amlodipine Besylate 10 mg 08/16/20 10:00 08/25/20 09:11 Amlodipine 10 Mg Tab PO 10 mg QDAY DELFINO Administration Atorvastatin Calcium 40 mg 08/15/20 22:00 08/24/20 23:11 Atorvastatin 40 Mg Tab PO 40 mg QHS DELFINO Administration Cilostazol 100 mg 08/15/20 22:00 08/25/20 09:10 Cilostazol 100 Mg Tab PO 100 mg BID DELFINO Administration Clopidogrel Bisulfate 75 mg 08/16/20 10:00 08/25/20 09:10 Clopidogrel 75 Mg Tab PO 75 mg QDAY DELFINO Administration Folic Acid 1 mg 08/16/20 10:00 08/25/20 09:11 Folic Acid 1 Mg Tab PO 1 mg QDAY DELFINO Administration Lactated Ringer's 1,000 mls @ 75 mls/hr 08/20/20 12:45 08/21/20 06:06 Lactated Ringers IV 75 mls/hr DIRECT DELFINO Administration Levofloxacin 750 mg 08/16/20 10:00 08/25/20 09:10 Levofloxacin 750 Mg Tab PO 750 mg DAILY DELFINO Administration Protocol Metoprolol Tartrate 50 mg 08/15/20 22:00 08/25/20 09:11 Metoprolol Tartrate 50 Mg Tab PO 50 mg BID DELFINO Administration Morphine Sulfate 2 mg 08/24/20 18:44 08/25/20 11:58 Morphine 4 Mg/1 Ml Inj IV 2 mg Q6H PRN Administration Pain , Severe (7-10) Ondansetron HCl 4 mg 08/15/20 18:13 08/18/20 17:46 Ondansetron 4 Mg/2 Ml Inj IV 4 mg Q8H PRN Administration Nausea And Vomiting Ondansetron HCl 4 mg 08/20/20 12:33 Ondansetron 4 Mg/2 Ml Inj IV ONCE PRN Nausea And Vomiting Oxycodone/Acetaminophen 1 tab 08/15/20 18:13 08/24/20 21:06 Oxycodone /Acetaminophen 5-325mg Tab PO 1 tab Q6H PRN Administration Pain, Moderate (4-6) Oxycodone/Acetaminophen 2 tab 08/20/20 16:22 08/25/20 17:25 Oxycodone /Acetaminophen 5-325mg Tab PO 2 tab Q6H PRN Administration Pain , Severe (7-10) Pantoprazole Sodium 40 mg 08/16/20 07:30 08/25/20 07:30 Pantoprazole 40 Mg Tab PO 40 mg QDAC DELFINO Administration Sodium Chloride 10 ml 08/15/20 22:00 08/25/20 09:09 Sodium Chloride 0.9% 10 Ml Flush Syringe IV 10 ml BID DELFINO Administration Sodium Chloride 10 ml 08/15/20 18:13 Sodium Chloride 0.9% 10 Ml Flush Syringe IV PRN PRN LINE FLUSH Thiamine HCl 100 mg 08/16/20 10:00 08/25/20 09:11 Thiamine 100 Mg Tab PO 100 mg QDAY DELFINO Administration Nutrition/Malnutrition Assess - Dietary Evaluation Nutrition/Malnutrition Findings: Nutrition Notes Start: 08/21/20 1 4:41 Freq: Status: Active Protocol: Document 08/21/20 14:41 INDER (Rec: 08/21/20 14:46 INDER [email or web address]) Nutrition Notes Need for Assessment generated from: LOS Initial or Follow up Brief Note Current Diet Cardiac/Consistent CHO Height 5 ft 4 in Weight 87.2 kg [place] Body Weight (kg) 59.09 BMI 33.0 Weight Status Obese Subjective/Other Information Pt screened for LOS. He has consumed 79% of meals since admission. Percent of energy/protein needs met: 90% energy 75% pro Current % PO Good (75-100%) Minimum of two criteria No Is patient on ventilator? No Is Patient Ambulatory and/or Out of Bed No REE-([facility]confined [facility] bed) 1898.604 Kcal/Kg value to use for calculation 20 Approximate Energy Requirements Using 1744 kcal/Kg Calculation Used for Recommendations Kcal/kg Additional Notes Pro needs 1.25-1.5g/kg adjBW: 91-110g/day Fluid needs 1ml/kcal Nutrition Intervention Follow-Up By: 08/28/20 Additional Comments F/U: stable intakes, need for ONS and full assessment
[2020-08-25] MEDS: LACTATED RINGERS 1,000 ML IV SCH (23:22)
[2020-08-26] MEDS: PANTOPRAZOLE 40 MG TAB PO SCH (07:30)
[2020-08-26] MEDS: oxyCODONE /ACETAMINOPHEN 5-325MG TAB PO PRN ×2 (07:37→21:17)
[2020-08-26] MEDS: CLOPIDOGREL 75 MG TAB PO SCH (10:15)
[2020-08-26] MEDS: THIAMINE 100 MG TAB PO SCH (10:15)
[2020-08-26] MEDS: FOLIC ACID 1 MG TAB PO SCH (10:15)
[2020-08-26] MEDS: METOPROLOL TARTRATE 50 MG TAB PO SCH (10:16)
[2020-08-26] MEDS: levoFLOXacin 750 MG TAB PO SCH (10:16)
[2020-08-26] MEDS: amLODIPine 10 MG TAB PO SCH (10:16)
[2020-08-26] MEDS: CILOSTAZOL 100 MG TAB PO SCH ×2 (10:18→21:16)
--- NOTE | 2020-08-26 10:23 | Progress Note ---
Assessment and Plan Assessment and plan: --Sepsis secondary to UTI/febrile illness T-max 101 F Antipyretics, continue Levaquin, decrease IV morphine dose Blood cultures , urine cultures negative to date plenty oral fluids, supportive care -- Necrosis of surgical wound h/o TMA on 07/30 he presented with increased bleeding from the wound Vascular consulted for further mx -- Peripheral vascular disease of lower extremity LLE revascularization done on 07/18 and 07/24 Continue antiplatelets and statin -- HTN (hypertension) continue antihypertensives --CAD (coronary artery disease) On Plavix, statin -- CHF (congestive heart failure), chronic diastolic and compensated 2D echo showed preserved EF We will hold the Lasix for now --Urinary retention, status post Renae placed on last admission Likely from BPH, urology f/u outpt --Sepsis secondary to UTI, started on levaquin --Obesity; BMI 33.6, patient needs weight reduction when medically stable -- DVT prophylaxis;On Heparin We will closely monitor patient and adjust the management as needed Plan of care reviewed with the patient and his nurse 08/16: Vascular surgeon following, cont supportive care. h/h stable. 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 Will require debridement and wound vac placement, but May require intervention to improve flow and ultimately mat require a BKA. cont supportive care for now, wait for surgical intervention. 08/18: Plan for OR Thursday for debridement of his left TMA with wound vac placement. cont supportive care 08/19: planned for TMA tomorrow, cont supportive care. negative for covid 08/20: planned for Nonhealing Left Transmetatarsal Amputation today followed by wound vac placement. cont abx, supportive care. 08/21; patient had left TMA with wound VAC placement, continue antibiotics for now and supportive care. Will follow with PT. patient is pending for placement. Patient is on 2 L of oxygen. 08/22/2020; patient is pending for SNF placement. Patient is on 2 L of oxygen. 08/23/2020; patient is status post left TMA with wound VAC. Patient is pending SNF placement. Patient is on 2 L of oxygen. 08/24/2020; febrile T-max 101 F, patient is receiving Levaquin for his UTI, urine cultures negative, will send blood cultures Managed with antipyretics, supportive care, discussed with patient extensively these findings --08/26/2020; patient clinically stable awaiting placement Closely monitor patient and adjust management as needed Plan of care reviewed with the patient and his nurse History Interval history: Have seen and examined the patient at the bedside No new complaints, vital signs noted Patient is awaiting rehab placement Vital signs noted Hospitalist Physical - Constitutional Vitals: Temp Pulse Resp BP Pulse Ox 98.8 F 82 16 94/46 91 08/26/20 04:46 08/26/20 04:46 08/26/20 04:46 08/26/20 05:10 08/26/20 04:46 General appearance: Present: mild distress, well-nourished, obese, other (Febrile T-max 101 F) - EENT Eyes: Present: PERRL, EOM intact - Neck Neck: Present: supple, normal ROM - Respiratory Respiratory effort: normal Respiratory: bilateral: diminished, negative: rales, rhonchi, wheezing - Cardiovascular Rhythm: regular Heart Sounds: Present: S1 & S2 - Extremities Extremities: no ischemia, No edema - Abdominal General gastrointestinal: soft, non-tender, non-distended, normal bowel sounds - Integumentary Integumentary: Present: clear, warm - Psychiatric Psychiatric: appropriate mood/affect, cooperative - Neurologic Neurologic: moves all extremities Results - Labs CBC & Chem 7: 08/21/20 08:14 08/21/20 08:14 Labs: Laboratory Last Values WBC 7.3 K/mm3 (4.5-11.0) 08/21/20 08:14 RBC 3.08 M/mm3 (3.65-5.03) L 08/21/20 08:14 Hgb 8.9 gm/dl (11.8-15.2) L 08/21/20 08:14 Hct 27.0 % (35.5-45.6) L 08/21/20 08:14 MCV 88 fl (84-94) 08/21/20 08:14 MCH 29 pg (28-32) 08/21/20 08:14 MCHC 33 % (32-34) 08/21/20 08:14 RDW 16.7 % (13.2-15.2) H 08/21/20 08:14 Plt Count 349 K/mm3 (140-440) 08/21/20 08:14 Lymph % (Auto) 31.9 % (13.4-35.0) 08/16/20 04:43 [place] % (Auto) 6.4 % (0.0-7.3) 08/16/20 04:43 Eos % (Auto) 4.9 % (0.0-4.3) H 08/16/20 04:43 Baso % (Auto) 0.9 % (0.0-1.8) 08/16/20 04:43 Lymph # (Auto) 2.7 K/mm3 (1.2-5.4) 08/16/20 04:43 [place] # (Auto) 0.5 K/mm3 (0.0-0.8) 08/16/20 04:43 Eos # (Auto) 0.4 K/mm3 (0.0-0.4) 08/16/20 04:43 Baso # (Auto) 0.1 K/mm3 (0.0-0.1) 08/16/20 04:43 Seg Neutrophils % 55.9 % (40.0-70.0) 08/16/20 04:43 Seg Neutrophils # 4.7 K/mm3 (1.8-7.7) 08/16/20 04:43 PT 14.7 Sec. (12.2-14.9) 08/20/20 07:12 INR 1.15 (0.87-1.13) H 08/20/20 07:12 Sodium 136 mmol/L (137-145) L 08/21/20 08:14 Potassium 4.2 mmol/L (3.6-5.0) 08/21/20 08:14 Chloride 101.1 mmol/L (98-107) 08/21/20 08:14 Carbon Dioxide 29 mmol/L (22-30) 08/21/20 08:14 Anion Gap 10 mmol/L 08/21/20 08:14 BUN 12 mg/dL (9-20) 08/21/20 08:14 Creatinine 0.9 mg/dL (0.8-1.3) 08/21/20 08:14 Estimated GFR > 60 ml/min 08/21/20 08:14 BUN/Creatinine Ratio 13 % 08/21/20 08:14 Glucose 129 mg/dL (75-100) H 08/21/20 08:14 POC Glucose 91 mg/dL (70-105) 08/26/20 05:26 Calcium 8.7 mg/dL (8.4-10.2) 08/21/20 08:14 Urine Color Yellow (Yellow) 08/15/20 Unknown Urine Turbidity Clear (Clear) 08/15/20 Unknown Urine pH 6.0 (5.0-7.0) 08/15/20 Unknown Ur Specific [place] 1.017 (1.003-1.030) 08/15/20 Unknown Urine Protein 100 mg/dl mg/dL (Negative) 08/15/20 Unknown Urine Glucose (UA) 50 mg/dL (Negative) 08/15/20 Unknown Urine Ketones Neg mg/dL (Negative) 08/15/20 Unknown Urine Blood Lg (Negative) 08/15/20 Unknown Urine Nitrite Neg (Negative) 08/15/20 Unknown Urine Bilirubin Neg (Negative) 08/15/20 Unknown Urine Urobilinogen < 2.0 mg/dL (<2.0) 08/15/20 Unknown Ur Leukocyte Esterase Sm (Negative) 08/15/20 Unknown Urine WBC (Auto) 31.0 /HPF (0.0-6.0) H 08/15/20 Unknown Urine RBC (Auto) 46.0 /HPF (0.0-6.0) 08/15/20 Unknown Urine Mucus Few /HPF 08/15/20 Unknown Coronavirus (PCR) Negative (Negative) 08/16/20 09:55 Microbiology: Microbiology 08/24/20 19:32 Peripheral/Venous Blood Culture - Preliminary NO GROWTH AFTER 24 HOURS 08/24/20 19:37 Peripheral/Venous Blood Culture - Preliminary NO GROWTH AFTER 24 HOURS Renae/IV: Voiding Method Indwelling Catheter IV Catheter Type [Right Hand] INT / Saline Lock IV Catheter Type [Right INT / Saline Lock Forearm] IV Catheter Type [Left Hand] INT / Saline Lock Active Medications - Current Medications Current Medications: Generic Name Dose Route Start Last Admin Trade Name Freq PRN Reason Stop Dose Admin Acetaminophen 650 mg 08/15/20 18:13 08/24/20 17:52 Acetaminophen 325 Mg Tab PO 650 mg Q4H PRN Administration Pain MILD(1-3)/Fever >100.5/REYES Albuterol 2.5 mg 08/15/20 18:13 08/20/20 12:53 Albuterol 2.5 Mg/3 Ml Nebu IH 2.5 mg Q4HRT PRN Administration Shortness Of Breath Amlodipine Besylate 10 mg 08/16/20 10:00 08/26/20 10:16 Amlodipine 10 Mg Tab PO Not Given QDAY DELFINO Atorvastatin Calcium 40 mg 08/15/20 22:00 08/25/20 22:28 Atorvastatin 40 Mg Tab PO 40 mg QHS DELFINO Administration Cilostazol 100 mg 08/15/20 22:00 08/26/20 10:18 Cilostazol 100 Mg Tab PO 100 mg BID DELFINO Administration Clopidogrel Bisulfate 75 mg 08/16/20 10:00 08/26/20 10:15 Clopidogrel 75 Mg Tab PO 75 mg QDAY DELFINO Administration Folic Acid 1 mg 08/16/20 10:00 08/26/20 10:15 Folic Acid 1 Mg Tab PO 1 mg QDAY DELFINO Administration Lactated Ringer's 1,000 mls @ 75 mls/hr 08/20/20 12:45 08/25/20 23:22 Lactated Ringers IV 75 mls/hr DIRECT DELFINO Administration Levofloxacin 750 mg 08/16/20 10:00 08/26/20 10:16 Levofloxacin 750 Mg Tab PO 750 mg DAILY DELFINO Administration Protocol Metoprolol Tartrate 50 mg 08/15/20 22:00 08/26/20 10:16 Metoprolol Tartrate 50 Mg Tab PO Not Given BID [facility] Morphine Sulfate 2 mg 08/24/20 18:44 08/25/20 11:58 Morphine 4 Mg/1 Ml Inj IV 2 mg Q6H PRN Administration Pain , Severe (7-10) Ondansetron HCl 4 mg 08/15/20 18:13 08/18/20 17:46 Ondansetron 4 Mg/2 Ml Inj IV 4 mg Q8H PRN Administration Nausea And Vomiting Ondansetron HCl 4 mg 08/20/20 12:33 Ondansetron 4 Mg/2 Ml Inj IV ONCE PRN Nausea And Vomiting Oxycodone/Acetaminophen 1 tab 08/15/20 18:13 08/24/20 21:06 Oxycodone /Acetaminophen 5-325mg Tab PO 1 tab Q6H PRN Administration Pain, Moderate (4-6) Oxycodone/Acetaminophen 2 tab 08/20/20 16:22 08/26/20 07:37 Oxycodone /Acetaminophen 5-325mg Tab PO 2 tab Q6H PRN Administration Pain , Severe (7-10) Pantoprazole Sodium 40 mg 08/16/20 07:30 08/26/20 07:30 Pantoprazole 40 Mg Tab PO 40 mg QDAC DELFINO Administration Sodium Chloride 10 ml 08/15/20 22:00 08/26/20 10:14 Sodium Chloride 0.9% 10 Ml Flush Syringe IV 10 ml BID DELFINO Administration Sodium Chloride 10 ml 08/15/20 18:13 Sodium Chloride 0.9% 10 Ml Flush Syringe IV PRN PRN LINE FLUSH Thiamine HCl 100 mg 08/16/20 10:00 08/26/20 10:15 Thiamine 100 Mg Tab PO 100 mg QDAY DELFINO Administration Nutrition/Malnutrition Assess - Dietary Evaluation Nutrition/Malnutrition Findings: Nutrition Notes Start: 08/21/20 14:41 Freq: Status: Active Protocol: Document 08/21/20 14:41 INDER (Rec: 08/21/20 14:46 INDER [id number]) Nutrition Notes Need for Assessment generated from: LOS Initial or Follow up Brief Note Current Diet Cardiac/Consistent CHO Height 5 ft 4 in Weight 87.2 kg [place] Body Weight (kg) 59.09 BMI 33.0 Weight Status Obese Subjective/Other Information Pt screened for LOS. He has consumed 79% of meals since admission. Percent of energy/protein needs met: 90% energy 75% pro Current % PO Good (75-100%) Minimum of two criteria No Is patient on ventilator? No Is Patient Ambulatory and/or Out of Bed No REE-([facility]-confined to bed) 1898.604 Kcal/Kg value to use for calculation 20 Approximate Energy Requirements Using 1744 kcal/Kg Calculation Used for Recommendations Kcal/kg Additional Notes Pro needs 1.25-1.5g/kg adjBW: 91-110g/day Fluid needs 1ml/kcal Nutrition Intervention Follow-Up By: 08/28/20 Additional Comments F/U: stable intakes, need for ONS and full assessment
[2020-08-26] MEDS: LOPERAMIDE 2 MG CAP PO PRN (23:59)
[2020-08-27] MEDS: METOPROLOL TARTRATE 50 MG TAB PO SCH ×3 (01:11→22:49)
[2020-08-27] MEDS: PANTOPRAZOLE 40 MG TAB PO SCH (09:37)
[2020-08-27] MEDS: CLOPIDOGREL 75 MG TAB PO SCH (11:14)
[2020-08-27] MEDS: CILOSTAZOL 100 MG TAB PO SCH ×2 (11:14→22:51)
[2020-08-27] MEDS: amLODIPine 10 MG TAB PO SCH (11:16)
[2020-08-27] MEDS: oxyCODONE /ACETAMINOPHEN 5-325MG TAB PO PRN ×2 (11:16→17:04)
[2020-08-27] MEDS: levoFLOXacin 750 MG TAB PO SCH (11:17)
[2020-08-27] MEDS: THIAMINE 100 MG TAB PO SCH (11:17)
[2020-08-27] MEDS: FOLIC ACID 1 MG TAB PO SCH (11:17)
--- NOTE | 2020-08-27 18:01 | Progress Note ---
Assessment and Plan Assessment and plan: --Sepsis secondary to UTI/febrile illness T-max 101 F Antipyretics, continue Levaquin, decrease IV morphine dose Blood cultures , urine cultures negative to date plenty oral fluids, supportive care -- Necrosis of surgical wound h/o TMA on 07/30 he presented with increased bleeding from the wound Vascular consulted for further mx -- Peripheral vascular disease of lower extremity LLE revascularization done on 07/18 and 07/24 Continue antiplatelets and statin -- HTN (hypertension) continue antihypertensives --CAD (coronary artery disease) On Plavix, statin -- CHF (congestive heart failure), chronic diastolic and compensated 2D echo showed preserved EF We will hold the Lasix for now --Urinary retention, status post Renae placed on last admission Likely from BPH, urology f/u outpt --Sepsis secondary to UTI, started on levaquin --Obesity; BMI 33.6, patient needs weight reduction when medically stable -- DVT prophylaxis;On Heparin We will closely monitor patient and adjust the management as needed Plan of care reviewed with the patient and his nurse 08/16: Vascular surgeon following, cont supportive care. h/h stable. 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 Will require debridement and wound vac placement, but May require intervention to improve flow and ultimately mat require a BKA. cont supportive care for now, wait for surgical intervention. 08/18: Plan for OR Thursday for debridement of his left TMA with wound vac placement. cont supportive care 08/19: planned for TMA tomorrow, cont supportive care. negative for covid 08/20: planned for Nonhealing Left Transmetatarsal Amputation today followed by wound vac placement. cont abx, supportive care. 08/21; patient had left TMA with wound VAC placement, continue antibiotics for now and supportive care. Will follow with PT. patient is pending for placement. Patient is on 2 L of oxygen. 08/22/2020; patient is pending for SNF placement. Patient is on 2 L of oxygen. 08/23/2020; patient is status post left TMA with wound VAC. Patient is pending SNF placement. Patient is on 2 L of oxygen. 08/24/2020; febrile T-max 101 F, patient is receiving Levaquin for his UTI, urine cultures negative, will send blood cultures Managed with antipyretics, supportive care, discussed with patient extensively these findings 08/26/2020; patient clinically stable awaiting placement 08/27/2020; patient is stable for discharge, pending placement Closely monitor patient and adjust management as needed Plan of care reviewed with the patient and his nurse History Interval history: New complaints Vital signs noted Pending placement Patient is stable for discharge Hospitalist Physical - Constitutional Vitals: Temp Pulse Resp BP Pulse Ox 99.4 F 82 18 120/58 96 08/27/20 15:33 08/27/20 15:33 08/27/20 15:33 08/27/20 15:33 08/27/20 15:33 General appearance: Present: mild distress, well-nourished, obese, other (Febrile T-max 101 F) - EENT Eyes: Present: PERRL, EOM intact - Neck Neck: Present: supple, normal ROM - Respiratory Respiratory effort: normal Respiratory: bilateral: diminished, wheezing, negative: rales, rhonchi - Cardiovascular Rhythm: regular Heart Sounds: Present: S1 & S2 - Extremities Extremities: no ischemia, abnormal (Wound dressing in place) - Abdominal General gastrointestinal: soft, non-tender, non-distended, normal bowel sounds - Integumentary Integumentary: Present: clear, warm - Psychiatric Psychiatric: appropriate mood/affect, cooperative - Neurologic Neurologic: CNII-XII intact, moves all extremities Results - Labs CBC & Chem 7: 08/21/20 08:14 08/21/20 08:14 Labs: Laboratory Last Values WBC 7.3 K/mm3 (4.5-11.0) 08/21/20 08:14 RBC 3.08 M/mm3 (3.65-5.03) L 08/21/20 08:14 Hgb 8.9 gm/dl (11.8-15.2) L 08/21/20 08:14 Hct 27.0 % (35.5-45.6) L 08/21/20 08:14 MCV 88 fl (84-94) 08/21/20 08:14 MCH 29 pg (28-32) 08/21/20 08:14 MCHC 33 % (32-34) 08/21/20 08:14 RDW 16.7 % (13.2-15.2) H 08/21/20 08:14 Plt Count 349 K/mm3 (140-440) 08/21/20 08:14 Lymph % (Auto) 31.9 % (13.4-35.0) 08/16/20 04:43 [place] % (Auto) 6.4 % (0.0-7.3) 08/16/20 04:43 Eos % (Auto) 4.9 % (0.0-4.3) H 08/16/20 04:43 Baso % (Auto) 0.9 % (0.0-1.8) 08/16/20 04:43 Lymph # (Auto) 2.7 K/mm3 (1.2-5.4) 08/16/20 04:43 [place] # (Auto) 0.5 K/mm3 (0.0-0.8) 08/16/20 04:43 Eos # (Auto) 0.4 K/mm3 (0.0-0.4) 08/16/20 04:43 Baso # (Auto) 0.1 K/mm3 (0.0-0.1) 08/16/20 04:43 Seg Neutrophils % 55.9 % (40.0-70.0) 08/16/20 04:43 Seg Neutrophils # 4.7 K/mm3 (1.8-7.7) 08/16/20 04:43 PT 14.7 Sec. (12.2-14.9) 08/20/20 07:12 INR 1.15 (0.87-1.13) H 08/20/20 07:12 Sodium 136 mmol/L (137-145) L 08/21/20 08:14 Potassium 4.2 mmol/L (3.6-5.0) 08/21/20 08:14 Chloride 101.1 mmol/L (98-107) 08/21/20 08:14 Carbon Dioxide 29 mmol/L (22-30) 08/21/20 08:14 Anion Gap 10 mmol/L 08/21/20 08:14 BUN 12 mg/dL (9-20) 08/21/20 08:14 Creatinine 0.9 mg/dL (0.8-1.3) 08/21/20 08:14 Estimated GFR > 60 ml/min 08/21/20 08:14 BUN/Creatinine Ratio 13 % 08/21/20 08:14 Glucose 129 mg/dL (75-100) H 08/21/20 08:14 POC Glucose 92 mg/dL (70-105) 08/27/20 06:11 Calcium 8.7 mg/dL (8.4-10.2) 08/21/20 08:14 Urine Color Yellow (Yellow) 08/15/20 Unknown Urine Turbidity Clear (Clear) 08/15/20 Unknown Urine pH 6.0 (5.0-7.0) 08/15/20 Unknown Ur Specific [place] 1.017 (1.003-1.030) 08/15/20 Unknown Urine Protein 100 mg/dl mg/dL (Negative) 08/15/20 Unknown Urine Glucose (UA) 50 mg/dL (Negative) 08/15/20 Unknown Urine Ketones Neg mg/dL (Negative) 08/15/20 Unknown Urine Blood Lg (Negative) 08/15/20 Unknown Urine Nitrite Neg (Negative) 08/15/20 Unknown Urine Bilirubin Neg (Negative) 08/15/20 Unknown Urine Urobilinogen < 2.0 mg/dL (<2.0) 08/15/20 Unknown Ur Leukocyte Esterase Sm (Negative) 08/15/20 Unknown Urine WBC (Auto) 31.0 /HPF (0.0-6.0) H 08/15/20 Unknown Urine RBC (Auto) 46.0 /HPF (0.0-6.0) 08/15/20 Unknown Urine Mucus Few /HPF 08/15/20 Unknown Coronavirus (PCR) Negative (Negative) 08/16/20 09:55 Microbiology: Microbiology 08/24/20 19:32 Peripheral/Venous Blood Culture - Preliminary NO GROWTH AFTER 48 HOURS 08/24/20 19:37 Peripheral/Venous Blood Culture - Preliminary NO GROWTH AFTER 48 HOURS Renae/IV: Voiding Method Indwelling Catheter IV Catheter Type [Right Hand] INT / Saline Lock IV Catheter Type [Right INT / Saline Lock Forearm] IV Catheter Type [Left Hand] INT / Saline Lock Active Medications - Current Medications Current Medications: Generic Name Dose Route Start Last Admin Trade Name Freq PRN Reason Stop Dose Admin Acetaminophen 650 mg 08/15/20 18:13 08/24/20 17:52 Acetaminophen 325 Mg Tab PO 650 mg Q4H PRN Administration Pain MILD(1-3)/Fever >100.5/REYES Albuterol 2.5 mg 08/15/20 18:13 08/20/20 12:53 Albuterol 2.5 Mg/3 Ml Nebu IH 2.5 mg Q4HRT PRN Administration Shortness Of Breath Amlodipine Besylate 10 mg 08/16/20 10:00 08/27/20 11:16 Amlodipine 10 Mg Tab PO Not Given QDAY [facility] Atorvastatin Calcium 40 mg 08/15/20 22:00 08/26/20 21:17 Atorvastatin 40 Mg Tab PO 40 mg QHS DELFINO Administration Cilostazol 100 mg 08/15/20 22:00 08/27/20 11:14 Cilostazol 100 Mg Tab PO 100 mg BID DELFINO Administration Clopidogrel Bisulfate 75 mg 08/16/20 10:00 08/27/20 11:14 Clopidogrel 75 Mg Tab PO 75 mg QDAY DELFINO Administration Folic Acid 1 mg 08/16/20 10:00 08/27/20 11:17 Folic Acid 1 Mg Tab PO 1 mg QDAY DELFINO Administration Levofloxacin 750 mg 08/16/20 10:00 08/27/20 11:17 Levofloxacin 750 Mg Tab PO 750 mg DAILY DELFINO Administration Protocol Loperamide HCl 2 mg 08/26/20 23:00 08/26/20 23:59 Loperamide 2 Mg Cap PO 2 mg PRN PRN Administration Diarrhea Metoprolol Tartrate 50 mg 08/15/20 22:00 08/27/20 11:15 Metoprolol Tartrate 50 Mg Tab PO Not Given BID [facility] Morphine Sulfate 2 mg 08/24/20 18:44 08/25/20 11:58 Morphine 4 Mg/1 Ml Inj IV 2 mg Q6H PRN Administration Pain , Severe (7-10) Ondansetron HCl 4 mg 08/15/20 18:13 08/18/20 17:46 Ondansetron 4 Mg/2 Ml Inj IV 4 mg Q8H PRN Administration Nausea And Vomiting Ondansetron HCl 4 mg 08/20/20 12:33 Ondansetron 4 Mg/2 Ml Inj IV ONCE PRN Nausea And Vomiting Oxycodone/Acetaminophen 1 tab 08/15/20 18:13 08/27/20 17:04 Oxycodone /Acetaminophen 5-325mg Tab PO 1 tab Q6H PRN Administration Pain, Moderate (4-6) Oxycodone/Acetaminophen 2 tab 08/20/20 16:22 08/26/20 07:37 Oxycodone /Acetaminophen 5-325mg Tab PO 2 tab Q6H PRN Administration Pain , Severe (7-10) Pantoprazole Sodium 40 mg 08/16/20 07:30 08/27/20 09:37 Pantoprazole 40 Mg Tab PO 40 mg QDAC DELFINO Administration Sodium Chloride 10 ml 08/15/20 22:00 08/27/20 11:20 Sodium Chloride 0.9% 10 Ml Flush Syringe IV 10 ml BID DELFINO Administration Sodium Chloride 10 ml 08/15/20 18:13 Sodium Chloride 0.9% 10 Ml Flush Syringe IV PRN PRN LINE FLUSH Thiamine HCl 100 mg 08/16/20 10:00 08/27/20 11:17 Thiamine 100 Mg Tab PO 100 mg QDAY DELFINO Administration Nutrition/Malnutrition Assess - Dietary Evaluation Nutrition/Malnutrition Findings: Nutrition Notes Start: 08/21/20 14:41 Freq: Status: Active Protocol: Document 08/21/20 14:41 INDER (Rec: 08/21/20 14:46 INDER [id number]) Nutrition Notes Need for Assessment generated from: LOS Initial or Follow up Brief Note Current Diet Cardiac/Consistent CHO Height 5 ft 4 in Weight 87.2 kg [place] Body Weight (kg) 59.09 BMI 33.0 Weight Status Obese Subjective/Other Information Pt screened for LOS. He has consumed 79% of meals since admission. Percent of energy/protein needs met: 90% energy 75% pro Current % PO Good (75-100%) Minimum of two criteria No Is patient on ventilator? No Is Patient Ambulatory and/or Out of Bed No REE-([facility]-confined to bed) 1898.604 Kcal/Kg value to use for calculation 20 Approximate Energy Requirements Using 1744 kcal/Kg Calculation Used for Recommendations Kcal/kg Additional Notes Pro needs 1.25-1.5g/kg adjBW: 91-110g/day Fluid needs 1ml/kcal Nutrition Intervention Follow-Up By: 08/28/20 Additional Comments F/U: stable intakes, need for ONS and full assessment
[2020-08-27] MEDS: ACETAMINOPHEN 325 MG TAB PO PRN (22:50)
[2020-08-28] MEDS ORDERED: SODIUM CHLORIDE 0.9% 500 ML 500 ML IV ONE (05:22)
[2020-08-28] MEDS: ACETAMINOPHEN 325 MG TAB PO PRN ×2 (06:26→17:38)
[2020-08-28] MEDS: PANTOPRAZOLE 40 MG TAB PO SCH (09:06)
--- NOTE | 2020-08-28 09:14 | Progress Note ---
Assessment and Plan Assessment and plan: --Sepsis secondary to UTI/febrile illness T-max 101 F Antipyretics, continue Levaquin, decrease IV morphine dose Blood cultures , urine cultures negative to date plenty oral fluids, supportive care -- Necrosis of surgical wound h/o TMA on 07/30 he presented with increased bleeding from the wound Vascular consulted for further mx -- Peripheral vascular disease of lower extremity LLE revascularization done on 07/18 and 07/24 Continue antiplatelets and statin -- HTN (hypertension) continue antihypertensives --CAD (coronary artery disease) On Plavix, statin -- CHF (congestive heart failure), chronic diastolic and compensated 2D echo showed preserved EF We will hold the Lasix for now --Urinary retention, status post Renae placed on last admission Likely from BPH, urology f/u outpt --Sepsis secondary to UTI, started on levaquin --Obesity; BMI 33.6, patient needs weight reduction when medically stable -- DVT prophylaxis;On Heparin We will closely monitor patient and adjust the management as needed Plan of care reviewed with the patient and his nurse 08/16: Vascular surgeon following, cont supportive care. h/h stable. 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 Will require debridement and wound vac placement, but May require intervention to improve flow and ultimately mat require a BKA. cont supportive care for now, wait for surgical intervention. 08/18: Plan for OR Thursday for debridement of his left TMA with wound vac placement. cont supportive care 08/19: planned for TMA tomorrow, cont supportive care. negative for covid 08/20: planned for Nonhealing Left Transmetatarsal Amputation today followed by wound vac placement. cont abx, supportive care. 08/21; patient had left TMA with wound VAC placement, continue antibiotics for now and supportive care. Will follow with PT. patient is pending for placement. Patient is on 2 L of oxygen. 08/22/2020; patient is pending for SNF placement. Patient is on 2 L of oxygen. 08/23/2020; patient is status post left TMA with wound VAC. Patient is pending SNF placement. Patient is on 2 L of oxygen. 08/24/2020; febrile T-max 101 F, patient is receiving Levaquin for his UTI, urine cultures negative, will send blood cultures Managed with antipyretics, supportive care, discussed with patient extensively these findings 08/26/2020; patient clinically stable awaiting placement 08/27/2020; patient is stable for discharge, pending placement 08/28/2020; continue current management pending placement Closely monitor patient and adjust management as needed Plan of care reviewed with the patient and his nurse History Interval history: I have seen and examined the patient at the bedside this morning Patient's chart and medications reviewed Patient feels better no new complaints Anxious to be discharged to rehab Vital signs noted Hospitalist Physical - Constitutional Vitals: Temp Pulse Resp BP Pulse Ox 100.1 F H 87 18 75/31 92 08/28/20 05:03 08/27/20 21:56 08/28/20 05:03 08/28/20 05:03 08/27/20 21:56 General appearance: Present: no acute distress, well-nourished, obese, other (Febrile T-max 101 F) - EENT Eyes: Present: PERRL, EOM intact - Neck Neck: Present: supple, normal ROM - Respiratory Respiratory effort: normal Respiratory: bilateral: diminished, rhonchi, negative: rales, wheezing - Cardiovascular Rhythm: regular Heart Sounds: Present: S1 & S2 - Extremities Extremities: no ischemia, No edema - Abdominal General gastrointestinal: soft, non-tender, non-distended, normal bowel sounds - Integumentary Integumentary: Present: clear, warm Results - Labs CBC & Chem 7: 08/21/20 08:14 08/21/20 08:14 Labs: Laboratory Last Values WBC 7.3 K/mm3 (4.5-11.0) 08/21/20 08:14 RBC 3.08 M/mm3 (3.65-5.03) L 08/21/20 08:14 Hgb 8.9 gm/dl (11.8-15.2) L 08/21/20 08:14 Hct 27.0 % (35.5-45.6) L 08/21/20 08:14 MCV 88 fl (84-94) 08/21/20 08:14 MCH 29 pg (28-32) 08/21/20 08:14 MCHC 33 % (32-34) 08/21/20 08:14 RDW 16.7 % (13.2-15.2) H 08/21/20 08:14 Plt Count 349 K/mm3 (140-440) 08/21/20 08:14 Lymph % (Auto) 31.9 % (13.4-35.0) 08/16/20 04:43 [place] % (Auto) 6.4 % (0.0-7.3) 08/16/20 04:43 Eos % (Auto) 4.9 % (0.0-4.3) H 08/16/20 04:43 Baso % (Auto) 0.9 % (0.0-1.8) 08/16/20 04:43 Lymph # (Auto) 2.7 K/mm3 (1.2-5.4) 08/16/20 04:43 [place] # (Auto) 0.5 K/mm3 (0.0-0.8) 08/16/20 04:43 Eos # (Auto) 0.4 K/mm3 (0.0-0.4) 08/16/20 04:43 Baso # (Auto) 0.1 K/mm3 (0.0-0.1) 08/16/20 04:43 Seg Neutrophils % 55.9 % (40.0-70.0) 08/16/20 04:43 Seg Neutrophils # 4.7 K/mm3 (1.8-7.7) 08/16/20 04:43 PT 14.7 Sec. (12.2-14.9) 08/20/20 07:12 INR 1.15 (0.87-1.13) H 08/20/20 07:12 Sodium 136 mmol/L (137-145) L 08/21/20 08:14 Potassium 4.2 mmol/L (3.6-5.0) 08/21/20 08:14 Chloride 101.1 mmol/L (98-107) 08/21/20 08:14 Carbon Dioxide 29 mmol/L (22-30) 08/21/20 08:14 Anion Gap 10 mmol/L 08/21/20 08:14 BUN 12 mg/dL (9-20) 08/21/20 08:14 Creatinine 0.9 mg/dL (0.8-1.3) 08/21/20 08:14 Estimated GFR > 60 ml/min 08/21/20 08:14 BUN/Creatinine Ratio 13 % 08/21/20 08:14 Glucose 129 mg/dL (75-100) H 08/21/20 08:14 POC Glucose 92 mg/dL (70-105) 08/27/20 06:11 Calcium 8.7 mg/dL (8.4-10.2) 08/21/20 08:14 Urine Color Yellow (Yellow) 08/15/20 Unknown Urine Turbidity Clear (Clear) 08/15/20 Unknown Urine pH 6.0 (5.0-7.0) 08/15/20 Unknown Ur Specific [place] 1.017 (1.003-1.030) 08/15/20 Unknown Urine Protein 100 mg/dl mg/dL (Negative) 08/15/20 Unknown Urine Glucose (UA) 50 mg/dL (Negative) 08/15/20 Unknown Urine Ketones Neg mg/dL (Negative) 08/15/20 Unknown Urine Blood Lg (Negative) 08/15/20 Unknown Urine Nitrite Neg (Negative) 08/15/20 Unknown Urine Bilirubin Neg (Negative) 08/15/20 Unknown Urine Urobilinogen < 2.0 mg/dL (<2.0) 08/15/20 Unknown Ur Leukocyte Esterase Sm (Negative) 08/15/20 Unknown Urine WBC (Auto) 31.0 /HPF (0.0-6.0) H 08/15/20 Unknown Urine RBC (Auto) 46.0 /HPF (0.0-6.0) 08/15/20 Unknown Urine Mucus Few /HPF 08/15/20 Unknown Coronavirus (PCR) Negative (Negative) 08/16/20 09:55 Microbiology: Microbiology 08/24/20 19:32 Peripheral/Venous Blood Culture - Preliminary NO GROWTH AFTER 72 HOURS 08/24/20 19:37 Peripheral/Venous Blood Culture - Preliminary NO GROWTH AFTER 72 HOURS Renae/IV: Voiding Method Indwelling Catheter IV Catheter Type [Right Hand] INT / Saline Lock IV Catheter Type [Right INT / Saline Lock Forearm] IV Catheter Type [Left Hand] INT / Saline Lock Active Medications - Current Medications Current Medications: Generic Name Dose Route Start Last Admin Trade Name Freq PRN Reason Stop Dose Admin Acetaminophen 650 mg 08/15/20 18:13 08/28/20 06:26 Acetaminophen 325 Mg Tab PO 650 mg Q4H PRN Administration Pain MILD(1-3)/Fever >100.5/REYES Albuterol 2.5 mg 08/15/20 18:13 08/20/20 12:53 Albuterol 2.5 Mg/3 Ml Nebu IH 2.5 mg Q4HRT PRN Administration Shortness Of Breath Amlodipine Besylate 10 mg 08/16/20 10:00 08/27/20 11:16 Amlodipine 10 Mg Tab PO Not Given QDAY DELFINO Atorvastatin Calcium 40 mg 08/15/20 22:00 08/27/20 22:49 Atorvastatin 40 Mg Tab PO 40 mg QHS DELFINO Administration Cilostazol 100 mg 08/15/20 22:00 08/27/20 22:51 Cilostazol 100 Mg Tab PO 100 mg BID DELFINO Administration Clopidogrel Bisulfate 75 mg 08/16/20 10:00 08/27/20 11:14 Clopidogrel 75 Mg Tab PO 75 mg QDAY DELFINO Administration Folic Acid 1 mg 08/16/20 10:00 08/27/20 11:17 Folic Acid 1 Mg Tab PO 1 mg QDAY DELFINO Administration Levofloxacin 750 mg 08/16/20 10:00 08/27/20 11:17 Levofloxacin 750 Mg Tab PO 750 mg DAILY DELFINO Administration Protocol Loperamide HCl 2 mg 08/26/20 23:00 08/26/20 23:59 Loperamide 2 Mg Cap PO 2 mg PRN PRN Administration Diarrhea Metoprolol Tartrate 50 mg 08/15/20 22:00 08/27/20 22:49 Metoprolol Tartrate 50 Mg Tab PO Not Given BID [facility] Morphine Sulfate 2 mg 08/24/20 18:44 08/25/20 11:58 Morphine 4 Mg/1 Ml Inj IV 2 mg Q6H PRN Administration Pain , Severe (7-10) Ondansetron HCl 4 mg 08/15/20 18:13 08/18/20 17:46 Ondansetron 4 Mg/2 Ml Inj IV 4 mg Q8H PRN Administration Nausea And Vomiting Ondansetron HCl 4 mg 08/20/20 12:33 Ondansetron 4 Mg/2 Ml Inj IV ONCE PRN Nausea And Vomiting Oxycodone/Acetaminophen 1 tab 08/15/20 18:13 08/27/20 17:04 Oxycodone /Acetaminophen 5-325mg Tab PO 1 tab Q6H PRN Administration Pain, Moderate (4-6) Oxycodone/Acetaminophen 2 tab 08/20/20 16:22 08/26/20 07:37 Oxycodone /Acetaminophen 5-325mg Tab PO 2 tab Q6H PRN Administration Pain , Severe (7-10) Pantoprazole Sodium 40 mg 08/16/20 07:30 08/28/20 09:06 Pantoprazole 40 Mg Tab PO 40 mg QDAC DELFINO Administration Sodium Chloride 10 ml 08/15/20 22:00 08/27/20 22:49 Sodium Chloride 0.9% 10 Ml Flush Syringe IV 10 ml BID DELFINO Administration Sodium Chloride 10 ml 08/15/20 18:13 Sodium Chloride 0.9% 10 Ml Flush Syringe IV PRN PRN LINE FLUSH Thiamine HCl 100 mg 08/16/20 10:00 08/27/20 11:17 Thiamine 100 Mg Tab PO 100 mg QDAY DELFINO Administration Nutrition/Malnutrition Assess - Dietary Evaluation Nutrition/Malnutrition Findings: Nutrition Notes Start: 08/21/20 14:41 Freq: Status: Active Protocol: Document 08/21/20 14:41 INDER (Rec: 08/21/20 14:46 INDER [id number]) Nutrition Notes Need for Assessment generated from: LOS Initial or Follow up Brief Note Current Diet Cardiac/Consistent CHO Height 5 ft 4 in Weight 87.2 kg [place] Body Weight (kg) 59.09 BMI 33.0 Weight Status Obese Subjective/Other Information Pt screened for LOS. He has consumed 79% of meals since admission. Percent of energy/protein needs met: 90% energy 75% pro Current % PO Good (75-100%) Minimum of two criteria No Is patient on ventilator? No Is Patient Ambulatory and/or Out of Bed No REE-([facility]-confined to bed) 1898.604 Kcal/Kg value to use for calculation 20 Approximate Energy Requirements Using 1744 kcal/Kg Calculation Used for Recommendations Kcal/kg Additional Notes Pro needs 1.25-1.5g/kg adjBW: 91-110g/day Fluid needs 1ml/kcal Nutrition Intervention Follow-Up By: 08/28/20 Additional Comments F/U: stable intakes, need for ONS and full assessment
[2020-08-28] MEDS: levoFLOXacin 750 MG TAB PO SCH (12:47)
[2020-08-28] MEDS: FOLIC ACID 1 MG TAB PO SCH (12:47)
[2020-08-28] MEDS: CILOSTAZOL 100 MG TAB PO SCH ×2 (12:47→21:24)
[2020-08-28] MEDS: CLOPIDOGREL 75 MG TAB PO SCH (12:47)
[2020-08-28] MEDS: LOPERAMIDE 2 MG CAP PO PRN (12:51)
[2020-08-28] MEDS: THIAMINE 100 MG TAB PO SCH (12:51)
[2020-08-28] MEDS: METOPROLOL TARTRATE 50 MG TAB PO SCH ×2 (12:51→21:25)
[2020-08-28] MEDS: amLODIPine 10 MG TAB PO SCH (12:52)
[2020-08-28] MEDS: oxyCODONE /ACETAMINOPHEN 5-325MG TAB PO PRN ×2 (16:27→21:30)
--- NOTE | 2020-08-28 18:36 | XRay Report ---
Chest single view INDICATION: Dyspnea IMPRESSION: Ill-defined airspace densities present throughout both lungs which has worsened from 07/24. Signer Name: Romaine Stephenson MD Signed: 08/28/2020 6:31 PM Workstation Name: [id number]
[2020-08-28 20:15] LABS: Basophils % (Auto) 0.8 % (0.0-1.8); Hematocrit 25.5 % (35.5-45.6); Hemoglobin 8.7 gm/dl (11.8-15.2); Lymphocytes # (Auto) 0.8 K/mm3 (1.2-5.4); Lymphocytes % (Auto) 18.4 % (13.4-35.0); Mean Corpuscular HGB Conc 34 % (32-34); Mean Corpuscular Volume 82 fl (84-94); Monocytes # (Auto) 0.4 K/mm3 (0.0-0.8); Monocytes % (Auto) 9.1 % (0.0-7.3); Platelet Count 246 K/mm3 (140-440); Red Blood Count 3.09 M/mm3 (3.65-5.03); Red Cell Distribution Width 17.1 % (13.2-15.2)
[2020-08-28 20:28] LABS: BUN/Creatinine Ratio 11; Blood Urea Nitrogen 12 mg/dL (9-20); Calcium 7.8 mg/dL (8.4-10.2); Hemolysis Index 0
[2020-08-28] MEDS ORDERED: POTASSIUM CHLORIDE ER 20 MEQ TAB PO ONE (21:44)
[2020-08-29] MEDS: ACETAMINOPHEN 325 MG TAB PO PRN ×2 (05:25→21:40)
[2020-08-29] MEDS: levoFLOXacin 750 MG TAB PO SCH (11:01)
[2020-08-29] MEDS: FOLIC ACID 1 MG TAB PO SCH (11:01)
[2020-08-29] MEDS: METOPROLOL TARTRATE 50 MG TAB PO SCH ×2 (11:01→21:38)
[2020-08-29] MEDS: PANTOPRAZOLE 40 MG TAB PO SCH (11:01)
[2020-08-29] MEDS: CILOSTAZOL 100 MG TAB PO SCH ×2 (11:01→21:29)
[2020-08-29] MEDS: CLOPIDOGREL 75 MG TAB PO SCH (11:01)
[2020-08-29] MEDS: amLODIPine 10 MG TAB PO SCH (11:02)
[2020-08-29] MEDS: THIAMINE 100 MG TAB PO SCH (11:02)
--- NOTE | 2020-08-29 16:16 | Progress Note ---
Assessment and Plan Assessment and plan: Patient is anxious to go home. Informed him that we are waiting for subacute rehab/SNF placement formalities Patient had lucas PCR test done today in preparation to placement to fdc versus subacute Covid test came back positive --[id number]; --Sepsis secondary to UTI/febrile illness T-max 101 F Antipyretics, continue Levaquin, Contact and droplet isolation Inflammatory markers, ID consult if she has already seen the patient Blood cultures , urine cultures negative to date plenty oral fluids, supportive care -- Necrosis of surgical wound h/o TMA on 07/30 he presented with increased bleeding from the wound Vascular consulted for further mx -- Peripheral vascular disease of lower extremity LLE revascularization done on 07/18 and 07/24 Continue antiplatelets and statin -- HTN (hypertension) continue antihypertensives --CAD (coronary artery disease) On Plavix, statin -- CHF (congestive heart failure), chronic diastolic and compensated 2D echo showed preserved EF We will hold the Lasix for now --Urinary retention, status post Renae placed on last admission Likely from BPH, urology f/u outpt --Sepsis secondary to UTI, started on levaquin --Obesity; BMI 33.6, patient needs weight reduction when medically stable -- DVT prophylaxis;On Heparin We will closely monitor patient and adjust the management as needed Plan of care reviewed with the patient and his nurse 08/16: Vascular surgeon following, cont supportive care. h/h stable. 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 Will require debridement and wound vac placement, but May require intervention to improve flow and ultimately mat require a BKA. cont supportive care for now, wait for surgical intervention. 08/18: Plan for OR Thursday for debridement of his left TMA with wound vac placement. cont supportive care 08/19: planned for TMA tomorrow, cont supportive care. negative for covid 08/20: planned for Nonhealing Left Transmetatarsal Amputation today followed by wound vac placement. cont abx, supportive care. 08/21; patient had left TMA with wound VAC placement, continue antibiotics for now and supportive care. Will follow with PT. patient is pending for placement. Patient is on 2 L of oxygen. 08/22/2020; patient is pending for SNF placement. Patient is on 2 L of oxygen. 08/23/2020; patient is status post left TMA with wound VAC. Patient is pending SNF placement. Patient is on 2 L of oxygen. 08/24/2020; febrile T-max 101 F, patient is receiving Levaquin for his UTI, urine cultures negative, will send blood cultures Managed with antipyretics, supportive care, discussed with patient extensively these findings 08/26/2020; patient clinically stable awaiting placement 08/27/2020; patient is stable for discharge, pending placement 08/28/2020; continue current management pending placement Closely monitor patient and adjust management as needed Plan of care reviewed with the patient and his nurse History Interval history: Seen and examined the patient at the bedside Patient's chart and medications reviewed Patient had intermittent fevers Awaiting placement Covid test was done as preparation for placement Renuka PCR test was positive Patient placed in isolation Hospitalist Physical - Constitutional Vitals: Temp Pulse Resp BP Pulse Ox 99.4 F 99 H 20 102/60 97 08/29/20 12:13 08/29/20 12:13 08/29/20 12:13 08/29/20 12:13 08/29/20 12:13 General appearance: Present: no acute distress, well-nourished, obese, other (Febrile T-max 101 F) - EENT Eyes: Present: PERRL, EOM intact - Neck Neck: Present: supple, normal ROM - Respiratory Respiratory effort: normal Respiratory: bilateral: diminished, rhonchi, negative: rales, wheezing - Cardiovascular Rhythm: regular Heart Sounds: Present: S1 & S2 - Extremities Extremities: No edema, abnormal (Left TMA, wound dressing in place) - Abdominal General gastrointestinal: soft, non-tender, non-distended, normal bowel sounds - Integumentary Integumentary: Present: clear, warm - Psychiatric Psychiatric: appropriate mood/affect, cooperative - Neurologic Neurologic: CNII-XII intact, moves all extremities Results - Labs CBC & Chem 7: 08/28/20 19:34 08/28/20 19:34 Labs: Laboratory Last Values WBC 4.5 K/mm3 (4.5-11.0) 08/28/20 19:34 RBC 3.09 M/mm3 (3.65-5.03) L 08/28/20 19:34 Hgb 8.7 gm/dl (11.8-15.2) L 08/28/20 19:34 Hct 25.5 % (35.5-45.6) L 08/28/20 19:34 MCV 82 fl (84-94) L 08/28/20 19:34 MCH 28 pg (28-32) 08/28/20 19:34 MCHC 34 % (32-34) 08/28/20 19:34 RDW 17.1 % (13.2-15.2) H 08/28/20 19:34 Plt Count 246 K/mm3 (140-440) 08/28/20 19:34 Lymph % (Auto) 18.4 % (13.4-35.0) 08/28/20 19:34 [place] % (Auto) 9.1 % (0.0-7.3) H 08/28/20 19:34 Eos % (Auto) 0.0 % (0.0-4.3) 08/28/20 19:34 Baso % (Auto) 0.8 % (0.0-1.8) 08/28/20 19:34 Lymph # (Auto) 0.8 K/mm3 (1.2-5.4) L 08/28/20 19:34 [place] # (Auto) 0.4 K/mm3 (0.0-0.8) 08/28/20 19:34 Eos # (Auto) 0.0 K/mm3 (0.0-0.4) 08/28/20 19:34 Baso # (Auto) 0.0 K/mm3 (0.0-0.1) 08/28/20 19:34 Seg Neutrophils % 71.7 % (40.0-70.0) H 08/28/20 19:34 Seg Neutrophils # 3.2 K/mm3 (1.8-7.7) 08/28/20 19:34 PT 14.7 Sec. (12.2-14.9) 08/20/20 07:12 INR 1.15 (0.87-1.13) H 08/20/20 07:12 Sodium 130 mmol/L (137-145) L 08/28/20 19:34 Potassium 2.6 mmol/L (3.6-5.0) L* 08/28/20 19:34 Chloride 96.4 mmol/L (98-107) L 08/28/20 19:34 Carbon Dioxide 24 mmol/L (22-30) 08/28/20 19:34 Anion Gap 12 mmol/L 08/28/20 19:34 BUN 12 mg/dL (9-20) 08/28/20 19:34 Creatinine 1.1 mg/dL (0.8-1.3) 08/28/20 19:34 Estimated GFR > 60 ml/min 08/28/20 19:34 BUN/Creatinine Ratio 11 % 08/28/20 19:34 Glucose 119 mg/dL (75-100) H 08/28/20 19:34 POC Glucose 109 mg/dL (70-105) H 08/29/20 12:13 Calcium 7.8 mg/dL (8.4-10.2) L 08/28/20 19:34 Urine Color Yellow (Yellow) 08/15/20 Unknown Urine Turbidity Clear (Clear) 08/15/20 Unknown Urine pH 6.0 (5.0-7.0) 08/15/20 Unknown Ur Specific [place] 1.017 (1.003-1.030) 08/15/20 Unknown Urine Protein 100 mg/dl mg/dL (Negative) 08/15/20 Unknown Urine Glucose (UA) 50 mg/dL (Negative) 08/15/20 Unknown Urine Ketones Neg mg/dL (Negative) 08/15/20 Unknown Urine Blood Lg (Negative) 08/15/20 Unknown Urine Nitrite Neg (Negative) 08/15/20 Unknown Urine Bilirubin Neg (Negative) 08/15/20 Unknown Urine Urobilinogen < 2.0 mg/dL (<2.0) 08/15/20 Unknown Ur Leukocyte Esterase Sm (Negative) 08/15/20 Unknown Urine WBC (Auto) 31.0 /HPF (0.0-6.0) H 08/15/20 Unknown Urine RBC (Auto) 46.0 /HPF (0.0-6.0) 08/15/20 Unknown Urine Mucus Few /HPF 08/15/20 Unknown Coronavirus (PCR) Positive (Negative) A 08/29/20 Unknown Microbiology: Microbiology 08/28/20 19:49 Peripheral/Venous Blood Culture - Preliminary Culture in Progress 08/28/20 19:34 Peripheral/Venous Blood Culture - Preliminary Culture in Progress 08/24/20 19:32 Peripheral/Venous Blood Culture - Preliminary NO GROWTH AFTER 4 DAYS 08/24/20 19:37 Peripheral/Venous Blood Culture - Preliminary NO GROWTH AFTER 4 DAYS Renae/IV: Voiding Method Indwelling Catheter IV Catheter Type [Right Hand] INT / Saline Lock IV Catheter Type [Right INT / Saline Lock Forearm] IV Catheter Type [Left Hand] INT / Saline Lock Active Medications - Current Medications Current Medications: Generic Name Dose Route Start Last Admin Trade Name Freq PRN Reason Stop Dose Admin Acetaminophen 650 mg 08/15/20 18:13 08/29/20 05:25 Acetaminophen 325 Mg Tab PO 650 mg Q4H PRN Administration Pain MILD(1-3)/Fever >100.5/REYES Albuterol 2.5 mg 08/15/20 18:13 08/20/20 12:53 Albuterol 2.5 Mg/3 Ml Nebu IH 2.5 mg Q4HRT PRN Administration Shortness Of Breath Amlodipine Besylate 10 mg 08/16/20 10:00 08/29/20 11:02 Amlodipine 10 Mg Tab PO 10 mg QDAY DELFINO Administration Atorvastatin Calcium 40 mg 08/15/20 22:00 08/28/20 21:24 Atorvastatin 40 Mg Tab PO 40 mg QHS DELFINO Administration Cilostazol 100 mg 08/15/20 22:00 08/29/20 11:01 Cilostazol 100 Mg Tab PO 100 mg BID DELFINO Administration Clopidogrel Bisulfate 75 mg 08/16/20 10:00 08/29/20 11:01 Clopidogrel 75 Mg Tab PO 75 mg QDAY DELFINO Administration Folic Acid 1 mg 08/16/20 10:00 08/29/20 11:01 Folic Acid 1 Mg Tab PO 1 mg QDAY DELFINO Administration Levofloxacin 750 mg 08/16/20 10:00 08/29/20 11:01 Levofloxacin 750 Mg Tab PO 750 mg DAILY DELFINO Administration Protocol Loperamide HCl 2 mg 08/26/20 23:00 08/28/20 12:51 Loperamide 2 Mg Cap PO 2 mg PRN PRN Administration Diarrhea Metoprolol Tartrate 50 mg 08/15/20 22:00 08/29/20 11:01 Metoprolol Tartrate 50 Mg Tab PO 50 mg BID DELFINO Administration Morphine Sulfate 2 mg 08/24/20 18:44 08/25/20 11:58 Morphine 4 Mg/1 Ml Inj IV 2 mg Q6H PRN Administration Pain , Severe (7-10) Ondansetron HCl 4 mg 08/15/20 18:13 08/18/20 17:46 Ondansetron 4 Mg/2 Ml Inj IV 4 mg Q8H PRN Administration Nausea And Vomiting Ondansetron HCl 4 mg 08/20/20 12:33 Ondansetron 4 Mg/2 Ml Inj IV ONCE PRN Nausea And Vomiting Oxycodone/Acetaminophen 1 tab 08/15/20 18:13 08/28/20 21:30 Oxycodone /Acetaminophen 5-325mg Tab PO 1 tab Q6H PRN Administration Pain, Moderate (4-6) Oxycodone/Acetaminophen 2 tab 08/20/20 16:22 08/26/20 07:37 Oxycodone /Acetaminophen 5-325mg Tab PO 2 tab Q6H PRN Administration Pain , Severe (7-10) Pantoprazole Sodium 40 mg 08/16/20 07:30 08/29/20 11:01 Pantoprazole 40 Mg Tab PO 40 mg QDAC DELFINO Administration Sodium Chloride 10 ml 08/15/20 22:00 08/29/20 11:02 Sodium Chloride 0.9% 10 Ml Flush Syringe IV 10 ml BID DELFINO Administration Sodium Chloride 10 ml 08/15/20 18:13 Sodium Chloride 0.9% 10 Ml Flush Syringe IV PRN PRN LINE FLUSH Thiamine HCl 100 mg 08/16/20 10:00 08/29/20 11:02 Thiamine 100 Mg Tab PO 100 mg QDAY DELFINO Administration Nutrition/Malnutrition Assess - Dietary Evaluation Nutrition/Malnutrition Findings: Nutrition Notes Start: 08/21/20 14:41 Freq: Status: Active Protocol: Document 08/28/20 09:59 LM (Rec: 08/28/20 10:38 LM [id number]) Nutrition Notes Initial or Follow up Assessment Current Diagnosis Coronary Artery Disease, Hypertension,Hyperlipidemia Other Pertinent Diagnosis PVD, ETOH dependence, GERD, UTI, CHF, surgical wound Current Diet Cardiac/consistent CHO Labs/Tests Reviewed Pertinent Medications Reviewed Height 5 ft 4 in Weight 82.6 kg [place] Body Weight (kg) 59.09 BMI 31.2 Weight Status Obese Subjective/Other Information Pt did not answer phone. Pt has surgical wound of L foot. [place] score is 16. Burn Absent Trauma Absent Minimum of two criteria No #1 Nutrition Diagnosis Increased nutrient needs ( specify in comment below) Comments: Protein Etiology Wound healing As Evidenced by Signs and Symptoms Pt with surgical wound of L foot Is patient on ventilator? No Is Patient Ambulatory and/or Out of Bed No REE-([facility]-confined to bed) 1843.452 Kcal/Kg value to use for calculation 20 Approximate Energy Requirements Using 1652 kcal/Kg Calculation Used for Recommendations Kcal/kg Additional Notes Pro needs 1.25-1.5g/kg adjBW: 91-110g/day Fluid needs 1ml/kcal Nutrition Intervention Change Diet Order: Continue Goal #1 Meet at least 75% of energy and protein needs Goal #2 Wound healing Follow-Up By: 08/30/20 Additional Comments F/U for PO/ONS intakes
[2020-08-29 17:41] LABS: BUN/Creatinine Ratio 11; Blood Urea Nitrogen 11 mg/dL (9-20); Calcium 8.3 mg/dL (8.4-10.2); Hemolysis Index 0
[2020-08-29 20:37] LABS: C-Reactive Protein 18.3 mg/dL (0.00-1.30)
[2020-08-30] MEDS: oxyCODONE /ACETAMINOPHEN 5-325MG TAB PO PRN ×3 (00:47→19:43)
[2020-08-30] MEDS: PANTOPRAZOLE 40 MG TAB PO SCH (07:30)
[2020-08-30] MEDS: levoFLOXacin 750 MG TAB PO SCH (09:38)
[2020-08-30] MEDS: CLOPIDOGREL 75 MG TAB PO SCH (09:39)
[2020-08-30] MEDS: amLODIPine 10 MG TAB PO SCH (09:39)
[2020-08-30] MEDS: FOLIC ACID 1 MG TAB PO SCH (09:39)
[2020-08-30] MEDS: THIAMINE 100 MG TAB PO SCH (09:39)
[2020-08-30] MEDS: CILOSTAZOL 100 MG TAB PO SCH ×2 (09:39→21:07)
[2020-08-30] MEDS: METOPROLOL TARTRATE 50 MG TAB PO SCH ×2 (09:40→21:07)
--- NOTE | 2020-08-30 18:05 | Progress Note ---
Assessment and Plan Assessment and plan: Patient is anxious to go home. Informed him that we are waiting for subacute rehab/SNF placement formalities Patient had lucas PCR test done today in preparation to placement to senior living versus subacute Covid test came back positive --[id number]; 08/29/2020 --Sepsis secondary to UTI/febrile illness T-max 101 F Antipyretics, continue Levaquin, Contact and droplet isolation Inflammatory markers, ID consult if she has already seen the patient Blood cultures , urine cultures negative to date plenty oral fluids, supportive care -- Necrosis of surgical wound h/o TMA on 07/30 he presented with increased bleeding from the wound Vascular consulted for further mx -- Peripheral vascular disease of lower extremity LLE revascularization done on 07/18 and 07/24 Continue antiplatelets and statin -- HTN (hypertension) continue antihypertensives --CAD (coronary artery disease) On Plavix, statin -- CHF (congestive heart failure), chronic diastolic and compensated 2D echo showed preserved EF We will hold the Lasix for now --Urinary retention, status post Renae placed on last admission Likely from BPH, urology f/u outpt --Sepsis secondary to UTI, started on levaquin --Obesity; BMI 33.6, patient needs weight reduction when medically stable -- DVT prophylaxis;On Heparin We will closely monitor patient and adjust the management as needed Plan of care reviewed with the patient and his nurse 08/16: Vascular surgeon following, cont supportive care. h/h stable. 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 Will require debridement and wound vac placement, but May require intervention to improve flow and ultimately mat require a BKA. cont supportive care for now, wait for surgical intervention. 08/18: Plan for OR Thursday for debridement of his left TMA with wound vac placement. cont supportive care 08/19: planned for TMA tomorrow, cont supportive care. negative for covid 08/20: planned for Nonhealing Left Transmetatarsal Amputation today followed by wound vac placement. cont abx, supportive care. 08/21; patient had left TMA with wound VAC placement, continue antibiotics for now and supportive care. Will follow with PT. patient is pending for placement. Patient is on 2 L of oxygen. 08/22/2020; patient is pending for SNF placement. Patient is on 2 L of oxygen. 08/23/2020; patient is status post left TMA with wound VAC. Patient is pending SNF placement. Patient is on 2 L of oxygen. 08/24/2020; febrile T-max 101 F, patient is receiving Levaquin for his UTI, urine cultures negative, will send blood cultures Managed with antipyretics, supportive care, discussed with patient extensively these findings 08/26/2020; patient clinically stable awaiting placement 08/27/2020; patient is stable for discharge, pending placement 08/28/2020; continue current management pending placement 08/30/2020 pending placement; Covid positive Closely monitor patient and adjust management as needed Plan of care reviewed with the patient and his nurse History Interval history: I have seen and examined the patient at the bedside Patient's chart and medications reviewed Patient is anxious to go home No new complaints Covid positive state Pending placement Hospitalist Physical - Constitutional Vitals: Temp Pulse Resp BP Pulse Ox 98.5 F 93 H 18 84/49 85 08/30/20 16:53 08/30/20 16:53 08/30/20 16:53 08/30/20 16:53 08/30/20 16:53 General appearance: Present: no acute distress, well-nourished, obese, other (Febrile T-max 101 F) - EENT Eyes: Present: PERRL, EOM intact - Neck Neck: Present: supple, normal ROM - Respiratory Respiratory effort: normal Respiratory: bilateral: diminished, negative: rales, rhonchi, wheezing - Cardiovascular Rhythm: regular Heart Sounds: Present: S1 & S2 - Extremities Extremities: abnormal (Left TMA dressing in place) Extremity abnormal: edema - Abdominal General gastrointestinal: soft, non-tender, non-distended, normal bowel sounds - Integumentary Integumentary: Present: clear, warm - Psychiatric Psychiatric: appropriate mood/affect, cooperative - Neurologic Neurologic: moves all extremities Results - Labs CBC & Chem 7: 08/28/20 19:34 08/29/20 19:21 Labs: Laboratory Last Values WBC 4.5 K/mm3 (4.5-11.0) 08/28/20 19:34 RBC 3.09 M/mm3 (3.65-5.03) L 08/28/20 19:34 Hgb 8.7 gm/dl (11.8-15.2) L 08/28/20 19:34 Hct 25.5 % (35.5-45.6) L 08/28/20 19:34 MCV 82 fl (84-94) L 08/28/20 19:34 MCH 28 pg (28-32) 08/28/20 19:34 MCHC 34 % (32-34) 08/28/20 19:34 RDW 17.1 % (13.2-15.2) H 08/28/20 19:34 Plt Count 246 K/mm3 (140-440) 08/28/20 19:34 Lymph % (Auto) 18.4 % (13.4-35.0) 08/28/20 19:34 [place] % (Auto) 9.1 % (0.0-7.3) H 08/28/20 19:34 Eos % (Auto) 0.0 % (0.0-4.3) 08/28/20 19:34 Baso % (Auto) 0.8 % (0.0-1.8) 08/28/20 19:34 Lymph # (Auto) 0.8 K/mm3 (1.2-5.4) L 08/28/20 19:34 [place] # (Auto) 0.4 K/mm3 (0.0-0.8) 08/28/20 19:34 Eos # (Auto) 0.0 K/mm3 (0.0-0.4) 08/28/20 19:34 Baso # (Auto) 0.0 K/mm3 (0.0-0.1) 08/28/20 19:34 Seg Neutrophils % 71.7 % (40.0-70.0) H 08/28/20 19:34 Seg Neutrophils # 3.2 K/mm3 (1.8-7.7) 08/28/20 19:34 PT 14.7 Sec. (12.2-14.9) 08/20/20 07:12 INR 1.15 (0.87-1.13) H 08/20/20 07:12 D-Dimer 688.12 ng/mlDDU (0-234) H 08/29/20 19:21 Sodium 133 mmol/L (137-145) L 08/29/20 16:37 Potassium 3.1 mmol/L (3.6-5.0) L 08/29/20 19:21 Chloride 97.9 mmol/L (98-107) L 08/29/20 16:37 Carbon Dioxide 21 mmol/L (22-30) L 08/29/20 16:37 Anion Gap 17 mmol/L 08/29/20 16:37 BUN 11 mg/dL (9-20) 08/29/20 16:37 Creatinine 1.0 mg/dL (0.8-1.3) 08/29/20 16:37 Estimated GFR > 60 ml/min 08/29/20 16:37 BUN/Creatinine Ratio 11 % 08/29/20 16:37 Glucose 111 mg/dL (75-100) H 08/29/20 16:37 POC Glucose 106 mg/dL (70-105) H 08/29/20 17:38 Calcium 8.3 mg/dL (8.4-10.2) L 08/29/20 16:37 Magnesium 1.50 mg/dL (1.7-2.3) L 08/29/20 19:21 Ferritin 1476.0 ng/mL (30.0-300.0) H 08/29/20 19:21 Lactate Dehydrogenase 373 units/L (91-180) H 08/29/20 19:21 C-Reactive Protein 18.30 mg/dL (0.00-1.30) H 08/29/20 19:21 Urine Color Yellow (Yellow) 08/15/20 Unknown Urine Turbidity Clear (Clear) 08/15/20 Unknown Urine pH 6.0 (5.0-7.0) 08/15/20 Unknown Ur Specific [place] 1.017 (1.003-1.030) 08/15/20 Unknown Urine Protein 100 mg/dl mg/dL (Negative) 08/15/20 Unknown Urine Glucose (UA) 50 mg/dL (Negative) 08/15/20 Unknown Urine Ketones Neg mg/dL (Negative) 08/15/20 Unknown Urine Blood Lg (Negative) 08/15/20 Unknown Urine Nitrite Neg (Negative) 08/15/20 Unknown Urine Bilirubin Neg (Negative) 08/15/20 Unknown Urine Urobilinogen < 2.0 mg/dL (<2.0) 08/15/20 Unknown Ur Leukocyte Esterase Sm (Negative) 08/15/20 Unknown Urine WBC (Auto) 31.0 /HPF (0.0-6.0) H 08/15/20 Unknown Urine RBC (Auto) 46.0 /HPF (0.0-6.0) 08/15/20 Unknown Urine Mucus Few /HPF 08/15/20 Unknown Coronavirus (PCR) Positive (Negative) A 08/29/20 Unknown Microbiology: Microbiology 08/28/20 20:08 Urine,Clean Catch Urine Culture - Preliminary NO GROWTH AFTER 24 HOURS 08/28/20 19:34 Peripheral/Venous Blood Culture - Preliminary NO GROWTH AFTER 24 HOURS 08/28/20 19:49 Peripheral/Venous Blood Culture - Preliminary NO GROWTH AFTER 24 HOURS 08/24/20 19:32 Peripheral/Venous Blood Culture - Final NO GROWTH AFTER 5 DAYS 08/24/20 19:37 Peripheral/Venous Blood Culture - Final NO GROWTH AFTER 5 DAYS Renae/IV: Voiding Method External Female Catheter IV Catheter Type [Right Hand] INT / Saline Lock IV Catheter Type [Right INT / Saline Lock Forearm] IV Catheter Type [Left Hand] INT / Saline Lock Active Medications - Current Medications Current Medications: Generic Name Dose Route Start Last Admin Trade Name Freq PRN Reason Stop Dose Admin Acetaminophen 650 mg 08/15/20 18:13 08/29/20 21:40 Acetaminophen 325 Mg Tab PO 650 mg Q4H PRN Administration Pain MILD(1-3)/Fever >100.5/REYES Albuterol 2.5 mg 08/15/20 18:13 08/20/20 12:53 Albuterol 2.5 Mg/3 Ml Nebu IH 2.5 mg Q4HRT PRN Administration Shortness Of Breath Amlodipine Besylate 10 mg 08/16/20 10:00 08/30/20 09:39 Amlodipine 10 Mg Tab PO Not Given QDAY DELFINO Atorvastatin Calcium 40 mg 08/15/20 22:00 08/29/20 21:29 Atorvastatin 40 Mg Tab PO 40 mg QHS DELFINO Administration Cilostazol 100 mg 08/15/20 22:00 08/30/20 09:39 Cilostazol 100 Mg Tab PO 100 mg BID DELFINO Administration Clopidogrel Bisulfate 75 mg 08/16/20 10:00 08/30/20 09:39 Clopidogrel 75 Mg Tab PO 75 mg QDAY DELFINO Administration Folic Acid 1 mg 08/16/20 10:00 08/30/20 09:39 Folic Acid 1 Mg Tab PO 1 mg QDAY DELFINO Administration Levofloxacin 750 mg 08/16/20 10:00 08/30/20 09:38 Levofloxacin 750 Mg Tab PO 750 mg DAILY DELFINO Administration Protocol Loperamide HCl 2 mg 08/26/20 23:00 08/28/20 12:51 Loperamide 2 Mg Cap PO 2 mg PRN PRN Administration Diarrhea Metoprolol Tartrate 50 mg 08/15/20 22:00 08/30/20 09:40 Metoprolol Tartrate 50 Mg Tab PO Not Given BID DELFINO Morphine Sulfate 2 mg 08/24/20 18:44 08/25/20 11:58 Morphine 4 Mg/1 Ml Inj IV 2 mg Q6H PRN Administration Pain , Severe (7-10) Ondansetron HCl 4 mg 08/15/20 18:13 08/18/20 17:46 Ondansetron 4 Mg/2 Ml Inj IV 4 mg Q8H PRN Administration Nausea And Vomiting Oxycodone/Acetaminophen 1 tab 08/15/20 18:13 08/30/20 00:47 Oxycodone /Acetaminophen 5-325mg Tab PO 1 tab Q6H PRN Administration Pain, Moderate (4-6) Oxycodone/Acetaminophen 2 tab 08/20/20 16:22 08/30/20 13:18 Oxycodone /Acetaminophen 5-325mg Tab PO 2 tab Q6H PRN Administration Pain , Severe (7-10) Pantoprazole Sodium 40 mg 08/16/20 07:30 08/30/20 07:30 Pantoprazole 40 Mg Tab PO 40 mg QDAC DELFINO Administration Sodium Chloride 10 ml 08/15/20 22:00 08/30/20 09:38 Sodium Chloride 0.9% 10 Ml Flush Syringe IV 10 ml BID DELFINO Administration Sodium Chloride 10 ml 08/15/20 18:13 Sodium Chloride 0.9% 10 Ml Flush Syringe IV PRN PRN LINE FLUSH Thiamine HCl 100 mg 08/16/20 10:00 08/30/20 09:39 Thiamine 100 Mg Tab PO 100 mg QDAY DELFINO Administration Nutrition/Malnutrition Assess - Dietary Evaluation Nutrition/Malnutrition Findings: Nutrition Notes Start: 08/21/20 14:41 Freq: Status: Active Protocol: Document 08/30/20 10:23 MARIA T (Rec: 08/30/20 10:27 MK [id number]) Nutrition Notes Initial or Follow up Reassessment Current Diagnosis Coronary Artery Disease, Hypertension,Hyperlipidemia Other Pertinent Diagnosis PVD, ETOH dependence, GERD, UTI, CHF, surgical wound Current Diet Cardiac/consistent CHO Labs/Tests K 3.1 Pertinent Medications Thiamine Folic Acid Height 5 ft 4 in Weight 82.6 kg Usual Body Weight 81.81 kg [place] Body Weight (kg) 59.09 BMI 31.2 Weight Status Obese Subjective/Other Information FU for intakes. Pt reports eating 50% of meals due to food prefrences. Food prefrences noted. Percent of energy/protein needs met: 60%/47% Burn Absent Trauma Absent GI Symptoms None Current % PO Fair (50-74%) Minimum of two criteria No #1 Nutrition Diagnosis Increased nutrient needs ( specify in comment below) Diagnosis Progress(for reassessment Continues documentation) Is patient on ventilator? No Is Patient Ambulatory and/or Out of Bed No REE-([place] [facility]-confined to bed) 1843.452 Kcal/Kg value to use for calculation 20 Approximate Energy Requirements Using 1652 kcal/Kg Calculation Used for Recommendations Kcal/kg Additional Notes Pro needs 1.25-1.5g/kg adjBW: 91-110g/day Fluid needs 1ml/kcal Nutrition Intervention Change Diet Order: Continue Add Supplement/Snack (indicate name/kcal Glucerna Daily /protein ) Provides kCal: 220 Provides Protein (gm) 10 Goal #1 Meet at least 75% of energy and protein needs Goal #2 Wound healing Follow-Up By: 09/04/20 Additional Comments FU for PO and ONS intakes
[2020-08-30] MEDS ORDERED: MAGNESIUM SULFATE 2 GM/50 ML BAG IV ONE (22:43)
[2020-08-30] MEDS ORDERED: POTASSIUM CHLORIDE ER 20 MEQ TAB PO ONE (22:45)
[2020-08-31 06:21] LABS: Basophils % (Auto) 0.6 % (0.0-1.8); Hematocrit 25.7 % (35.5-45.6); Hemoglobin 9.1 gm/dl (11.8-15.2); Lymphocytes # (Auto) 1.4 K/mm3 (1.2-5.4); Lymphocytes % (Auto) 21.1 % (13.4-35.0); Mean Corpuscular HGB Conc 35 % (32-34); Mean Corpuscular Volume 83 fl (84-94); Monocytes # (Auto) 0.6 K/mm3 (0.0-0.8); Monocytes % (Auto) 9.4 % (0.0-7.3); Platelet Count 275 K/mm3 (140-440); Red Blood Count 3.12 M/mm3 (3.65-5.03); Red Cell Distribution Width 17.4 % (13.2-15.2)
[2020-08-31 06:42] LABS: BUN/Creatinine Ratio 13; Blood Urea Nitrogen 16 mg/dL (9-20); Hemolysis Index 1
[2020-08-31] MEDS: PANTOPRAZOLE 40 MG TAB PO SCH (07:30)
[2020-08-31] MEDS: METOPROLOL TARTRATE 50 MG TAB PO SCH ×3 (10:00→22:01)
[2020-08-31] MEDS: CLOPIDOGREL 75 MG TAB PO SCH (10:01)
[2020-08-31] MEDS: THIAMINE 100 MG TAB PO SCH (10:01)
[2020-08-31] MEDS: FOLIC ACID 1 MG TAB PO SCH (10:02)
[2020-08-31] MEDS: amLODIPine 10 MG TAB PO SCH (10:02)
[2020-08-31] MEDS: levoFLOXacin 750 MG TAB PO SCH (10:02)
[2020-08-31] MEDS: oxyCODONE /ACETAMINOPHEN 5-325MG TAB PO PRN ×2 (10:05→22:53)
[2020-08-31] MEDS: CILOSTAZOL 100 MG TAB PO SCH ×2 (10:05→20:00)
--- NOTE | 2020-08-31 18:57 | Progress Note ---
Subjective Date of service: 08/31/20 Principal diagnosis: PVD with gangrene/status post TMA and debridement Objective - Constitutional Vitals: Vital Signs - 12hr 08/31/20 08/31/20 11:46 16:33 Temperature 98.8 F 98.1 F Pulse Rate 113 H 84 Respiratory 18 18 Rate Blood Pressure 116/57 100/56 O2 Sat by Pulse 92 89 Oximetry General appearance: Present: no acute distress, well-nourished - EENT Eyes: PERRL, EOM intact ENT: hearing intact, clear oral mucosa Ears: bilateral: normal - Neck Neck: supple, normal ROM - Respiratory Respiratory effort: normal Respiratory: bilateral: CTA - Breasts Breasts: normal - Cardiovascular Rhythm: regular Heart Sounds: Present: S1 & S2. Absent: gallop, rub Extremities: pulses intact, No edema, normal color, Full ROM - Gastrointestinal General gastrointestinal: Present: soft, non-tender, non-distended, normal bowel sounds - Genitourinary Male genitourinary: normal - Integumentary Integumentary: clear, warm, dry - Musculoskeletal Musculoskeletal: 1, strength equal bilaterally - Neurologic Neurologic: moves all extremities - Psychiatric Psychiatric: memory intact, appropriate mood/affect, intact judgment & insight - Labs CBC & Chem 7: 08/31/20 04:30 08/31/20 04:30 Labs: Abnormal lab results 08/31/20 08/31/20 Range/Units 04:30 04:30 RBC 3.12 L (3.65-5.03) M/mm3 Hgb 9.1 L (11.8-15.2) gm/dl Hct 25.7 L (35.5-45.6) % MCV 83 L (84-94) fl MCHC 35 H (32-34) % RDW 17.4 H (13.2-15.2) % [place] % (Auto) 9.4 H (0.0-7.3) % Sodium 134 L (137-145) mmol/L Potassium 3.4 L (3.6-5.0) mmol/L Glucose 129 H (75-100) mg/dL Calcium 8.0 L (8.4-10.2) mg/dL
[2020-09-01] MEDS: PANTOPRAZOLE 40 MG TAB PO SCH (08:46)
[2020-09-01] MEDS: levoFLOXacin 750 MG TAB PO SCH (11:22)
[2020-09-01] MEDS: METOPROLOL TARTRATE 50 MG TAB PO SCH ×2 (11:23→22:24)
[2020-09-01] MEDS: FOLIC ACID 1 MG TAB PO SCH (11:23)
[2020-09-01] MEDS: THIAMINE 100 MG TAB PO SCH (11:23)
[2020-09-01] MEDS: CILOSTAZOL 100 MG TAB PO SCH ×2 (11:24→22:23)
[2020-09-01] MEDS: CLOPIDOGREL 75 MG TAB PO SCH (11:24)
[2020-09-01] MEDS: amLODIPine 10 MG TAB PO SCH (11:24)
[2020-09-01] MEDS: ACETAMINOPHEN 325 MG TAB PO PRN ×2 (11:33→22:23)
--- NOTE | 2020-09-01 17:34 | Progress Note ---
Subjective Date of service: 09/01/20 Principal diagnosis: PVD with gangrene/status post TMA and debridement Objective - Constitutional Vitals: Vital Signs - 12hr 09/01/20 09/01/20 09/01/20 05:42 08:46 10:00 Temperature 97.9 F Pulse Rate 95 H Respiratory 20 20 Rate Blood Pressure 120/63 O2 Sat by Pulse 93 93 92 Oximetry 09/01/20 09/01/20 09/01/20 11:23 11:25 11:37 Temperature 101.7 F H Pulse Rate 154 H Respiratory Rate Blood Pressure 115/65 O2 Sat by Pulse 93 Oximetry 09/01/20 14:24 Temperature Pulse Rate Respiratory Rate Blood Pressure O2 Sat by Pulse 93 Oximetry General appearance: Present: no acute distress, well-nourished - EENT Eyes: PERRL, EOM intact ENT: hearing intact, clear oral mucosa Ears: bilateral: normal - Neck Neck: supple, normal ROM - Respiratory Respiratory effort: normal Respiratory: bilateral: CTA - Breasts Breasts: normal - Cardiovascular Rhythm: regular Heart Sounds: Present: S1 & S2. Absent: gallop, rub Extremities: pulses intact, No edema, normal color, Full ROM - Gastrointestinal General gastrointestinal: Present: soft, non-tender, non-distended, normal bowel sounds - Genitourinary Male genitourinary: normal - Integumentary Integumentary: clear, warm, dry - Musculoskeletal Musculoskeletal: 1, strength equal bilaterally - Neurologic Neurologic: moves all extremities - Psychiatric Psychiatric: memory intact, appropriate mood/affect, intact judgment & insight - Labs CBC & Chem 7: 08/31/20 04:30 08/31/20 04:30
[2020-09-02] MEDS ORDERED: SODIUM CHLORIDE 0.9% 1000 ML 0 ML ONE (06:30)
[2020-09-02] MEDS ORDERED: VANCOMYCIN/NS 1 GM/250 ML 1 GM/250 ML BAG IV ONE (06:31)
[2020-09-02] MEDS ORDERED: SODIUM CHLORIDE 0.9% 500 ML 500 ML ONE (06:32)
[2020-09-02] MEDS ORDERED: PIPERACIL/TAZOBACTA 4.5/NS 100 4.5 GM/100 ML VIAL IV ONE (06:38)
[2020-09-02] MEDS ORDERED: SODIUM CHLORIDE 0.9% 500 ML 500 ML IV ONE (07:15)
[2020-09-02] MEDS ORDERED: VANCOMYCIN 1,750 MG in SODIUM CHLORIDE 0.9% 500 ML 500 ML IV ONE (08:00)
[2020-09-02] MEDS: CLOPIDOGREL 75 MG TAB PO SCH (09:38)
[2020-09-02] MEDS: PANTOPRAZOLE 40 MG TAB PO SCH (09:38)
[2020-09-02] MEDS: METOPROLOL TARTRATE 50 MG TAB PO SCH ×2 (09:38→22:21)
[2020-09-02] MEDS: THIAMINE 100 MG TAB PO SCH (09:39)
[2020-09-02] MEDS: levoFLOXacin 750 MG TAB PO SCH (09:39)
[2020-09-02] MEDS: FOLIC ACID 1 MG TAB PO SCH (09:40)
[2020-09-02] MEDS: amLODIPine 10 MG TAB PO SCH (11:02)
--- NOTE | 2020-09-02 11:06 | Event Note ---
Date: 09/02/20 Code MET called due to labored respirations and tachypnea. Patient was transferred to ICU and placed on BiPAP. ABG ordered to assess after BiPAP intervention. EKG revealed sinus tachycardia no ST-T wave changes. The high probability of a clinically significant, sudden or life threatening deterioration of the [respiratory] system(s) required my full and direct attention, intervention and personal management. The aggregate critical care time was [32] minutes. This time is in addition to time spent performing reported procedures but includes the following: [x] Data Review and interpretation [x] Patient assessment and monitoring of vital signs [x] Documentation [x] Medication orders and management
[2020-09-02] MEDS ORDERED: SODIUM CHLORIDE 0.9% 1000 ML 1,000 ML IV ONE (12:00)
[2020-09-02] MEDS: ACETAMINOPHEN 325 MG TAB PO PRN (12:17)
[2020-09-02] MEDS: CILOSTAZOL 100 MG TAB PO SCH ×2 (12:17→22:21)
[2020-09-02] MEDS ORDERED: SODIUM CHLORIDE 0.9% 500 ML 500 ML IV PRN (13:41)
[2020-09-02] MEDS ORDERED: NORepinephrine/NS 4 MG-250 ML 4 MG/250 ML BAG IV ONE (13:52)
[2020-09-02] MEDS: NORepinephrine/NS 4 MG-250 ML 4 MG/250 ML BAG IV SCH (13:55)
--- NOTE | 2020-09-02 13:59 | Consultation ---
History of Present Illness Consult date: 09/02/20 Requesting physician: COLIN HART Reason for consult: other (Acute Hypoxemic Respiratory Failure; COVID-19 infection) History of present illness: PCCM CONSULT NOTE (Full dictation # [id number]) Please see dictated notes for full details Past History Past Medical History: CAD, hypertension, hyperlipidemia, PVD Past Surgical History: CABG, tonsillectomy, Other (Left transmetatarsal amputation, revascularization of left lower extremity, removal of cyst on right chest) Social history: single Family history: no significant family history Medications and Allergies Allergies Allergy/AdvReac Type Severity Reaction Status Date / Time Penicillins Allergy Hives Verified 07/16/20 22:49 Home Medications Medication Instructions Recorded Confirmed Last Taken Type AtorvaSTATin [Lipitor] 40 mg PO QHS 07/17/20 08/15/20 Unknown History Clopidogrel [Plavix] 75 mg PO QDAY 07/17/20 08/15/20 Unknown History Folic Acid [Folvite] 1 mg PO QDAY 07/17/20 08/15/20 Unknown History Metoprolol [Lopressor TAB] 50 mg PO BID 07/17/20 08/15/20 Unknown History Thiamine [Vitamin B-1] 100 mg PO QDAY 07/17/20 08/15/20 Unknown History Pantoprazole [Protonix TAB] 40 mg PO QDAC #30 tablet 08/06/20 08/15/20 Unknown Rx amLODIPine 10 mg PO QDAY #30 tablet 08/06/20 08/15/20 Unknown Rx cilostazoL [Pletal] 100 mg PO BID #60 tablet 08/06/20 08/15/20 Unknown Rx levoFLOXacin [Levaquin TAB] 750 mg PO DAILY #5 tablet 08/06/20 08/15/20 Unknown Rx oxyCODONE /ACETAMINOPHEN [Percocet 1 tab PO Q4H PRN #14 tablet 08/06/20 08/15/20 Unknown Rx 5/325 mg] Active Meds: Active Medications Acetaminophen (Acetaminophen 325 Mg Tab) 650 mg PO Q4H PRN PRN Reason: Pain MILD(1-3)/Fever >100.5/REYES Last Admin: 09/02/20 12:17 Dose: 650 mg Documented by: Albuterol (Albuterol 2.5 Mg/3 Ml Nebu) 2.5 mg IH Q4HRT PRN PRN Reason: Shortness Of Breath Last Admin: 08/20/20 12:53 Dose: 2.5 mg Documented by: Amlodipine Besylate (Amlodipine 10 Mg Tab) 10 mg PO QDAY [facility] Last Admin: 09/02/20 11:02 Dose: Not Given Documented by: Atorvastatin Calcium (Atorvastatin 40 Mg Tab) 40 mg PO QHS [facility] Last Admin: 09/01/20 22:24 Dose: 40 mg Documented by: Cilostazol (Cilostazol 100 Mg Tab) 100 mg PO BID [facility] Last Admin: 09/02/20 12:17 Dose: 100 mg Documented by: Clopidogrel Bisulfate (Clopidogrel 75 Mg Tab) 75 mg PO QDAY [facility] Last Admin: 09/02/20 09:38 Dose: 75 mg Documented by: Folic Acid (Folic Acid 1 Mg Tab) 1 mg PO QDAY [facility] Last Admin: 09/02/20 09:40 Dose: 1 mg Documented by: Sodium Chloride (Nacl 0.9% 500 Ml) 500 mls @ 1 mls/hr IV DIRECT PRN PRN Reason: ARTERIAL LINE FLUSH Levofloxacin (Levofloxacin 750 Mg Tab) 750 mg PO DAILY [facility]; Protocol Stop: 09/06/20 09:59 Last Admin: 09/02/20 09:39 Dose: 750 mg Documented by: Loperamide HCl (Loperamide 2 Mg Cap) 2 mg PO PRN PRN PRN Reason: Diarrhea Last Admin: 08/28/20 12:51 Dose: 2 mg Documented by: Metoprolol Tartrate (Metoprolol Tartrate 50 Mg Tab) 50 mg PO BID [facility] Last Admin: 09/02/20 09:38 Dose: 50 mg Documented by: Morphine Sulfate (Morphine 4 Mg/1 Ml Inj) 2 mg IV Q6H PRN PRN Reason: Pain , Severe (7-10) Last Admin: 08/25/20 11:58 Dose: 2 mg Documented by: Ondansetron HCl (Ondansetron 4 Mg/2 Ml Inj) 4 mg IV Q8H PRN PRN Reason: Nausea And Vomiting Last Admin: 08/18/20 17:46 Dose: 4 mg Documented by: Oxycodone/Acetaminophen (Oxycodone /Acetaminophen 5-325mg Tab) 1 tab PO Q6H PRN PRN Reason: Pain, Moderate (4-6) Last Admin: 08/31/20 10:05 Dose: 1 tab Documented by: Oxycodone/Acetaminophen (Oxycodone /Acetaminophen 5-325mg Tab) 2 tab PO Q6H PRN PRN Reason: Pain , Severe (7-10) Last Admin: 08/31/20 22:53 Dose: 2 tab Documented by: Pantoprazole Sodium (Pantoprazole 40 Mg Tab) 40 mg PO QDAC [facility] Last Admin: 09/02/20 09:38 Dose: 40 mg Documented by: Sodium Chloride (Sodium Chloride 0.9% 10 Ml Flush Syringe) 10 ml IV BID [facility] Last Admin: 09/02/20 12:18 Dose: 10 ml Documented by: Sodium Chloride (Sodium Chloride 0.9% 10 Ml Flush Syringe) 10 ml IV PRN PRN PRN Reason: LINE FLUSH Thiamine HCl (Thiamine 100 Mg Tab) 100 mg PO QDAY [facility] Last Admin: 09/02/20 09:39 Dose: 100 mg Documented by: Physical Examination Vital signs: Vital Signs Pulse Ox 99 08/15/20 08:46 Results - Laboratory Findings CBC and BMP: 08/31/20 04:30 08/31/20 04:30 ABG ABG pH 7.442 (7.320-7.450) 09/02/20 06:49 POC ABG pCO2 26.2 mmHg (32.0-48.0) L 09/02/20 06:49 POC ABG pO2 82.2 mmHg (83-108) L 09/02/20 06:49 POC ABG HCO3 17.5 09/02/20 06:49 PT/INR, D-dimer PT 14.7 Sec. (12.2-14.9) 08/20/20 07:12 INR 1.15 (0.87-1.13) H 08/20/20 07:12 D-Dimer 688.12 ng/mlDDU (0-234) H 08/29/20 19:21 Abnormal lab findings: Abnormal Labs 08/15/20 08/15/20 08/15/20 08:49 10:40 10:40 RBC 2.96 L Hgb 9.0 L Hct 25.8 L MCV MCHC 35 H RDW 16.2 H [place] % (Auto) Eos % (Auto) Lymph # (Auto) Seg Neutrophils % INR D-Dimer POC ABG pCO2 POC ABG pO2 ABG Hemoglobin ABG Sodium ABG Potassium ABG Glucose Carboxyhemoglobin Sodium Potassium Chloride Carbon Dioxide BUN Creatinine 0.7 L Glucose 188 H POC Glucose 212 H Calcium 8.3 L Magnesium Ferritin Lactate Dehydrogenase C-Reactive Protein Arterial Blood Glucose Arterial Blood Ionized Calcium Urine WBC (Auto) Coronavirus (PCR) 08/15/20 08/15/20 08/16/20 14:00 Unknown 04:43 RBC 3.28 L Hgb 9.6 L Hct 29.3 L MCV MCHC RDW 16.6 H [place] % (Auto) Eos % (Auto) 4.9 H Lymph # (Auto) Seg Neutrophils % INR D-Dimer POC ABG pCO2 POC ABG pO2 ABG Hemoglobin ABG Sodium ABG Potassium ABG Glucose Carboxyhemoglobin Sodium Potassium Chloride Carbon Dioxide BUN 8 L Creatinine 0.6 L Glucose 115 H POC Glucose Calcium Magnesium Ferritin Lactate Dehydrogenase C-Reactive Protein Arterial Blood Glucose Arterial Blood Ionized Calcium Urine WBC (Auto) 31.0 H Coronavirus (PCR) 08/16/20 08/18/20 08/20/20 04:43 15:17 07:12 RBC Hgb 9.1 L Hct 27.2 L MCV MCHC RDW [place] % (Auto) Eos % (Auto) Lymph # (Auto) Seg Neutrophils % INR D-Dimer POC ABG pCO2 POC ABG pO2 ABG Hemoglobin ABG Sodium ABG Potassium ABG Glucose Carboxyhemoglobin Sodium 135 L Potassium Chloride 97.5 L Carbon Dioxide BUN Creatinine 0.5 L Glucose 153 H 135 H POC Glucose Calcium Magnesium Ferritin Lactate Dehydrogenase C-Reactive Protein Arterial Blood Glucose Arterial Blood Ionized Calcium Urine WBC (Auto) Coronavirus (PCR) 08/20/20 08/20/20 08/20/20 07:12 07:12 08:07 RBC Hgb Hct MCV MCHC RDW [place] % (Auto) Eos % (Auto) Lymph # (Auto) Seg Neutrophils % INR 1.15 H D-Dimer POC ABG pCO2 POC ABG pO2 ABG Hemoglobin ABG Sodium ABG Potassium ABG Glucose Carboxyhemoglobin Sodium Potassium Chloride Carbon Dioxide BUN Creatinine Glucose 113 H POC Glucose 108 H Calcium Magnesium Ferritin Lactate Dehydrogenase C-Reactive Protein Arterial Blood Glucose Arterial Blood Ionized Calcium Urine WBC (Auto) Coronavirus (PCR) 08/20/20 08/20/20 08/21/20 16:32 22:34 07:42 RBC Hgb Hct MCV MCHC RDW [place] % (Auto) Eos % (Auto) Lymph # (Auto) Seg Neutrophils % INR D-Dimer POC ABG pCO2 POC ABG pO2 ABG Hemoglobin ABG Sodium ABG Potassium ABG Glucose Carboxyhemoglobin Sodium Potassium Chloride Carbon Dioxide BUN Creatinine Glucose POC Glucose 107 H 139 H 115 H Calcium Magnesium Ferritin Lactate Dehydrogenase C-Reactive Protein Arterial Blood Glucose Arterial Blood Ionized Calcium Urine WBC (Auto) Coronavirus (PCR) 08/21/20 08/21/20 08/21/20 08:14 08:14 11:31 RBC 3.08 L Hgb 8.9 L Hct 27.0 L MCV MCHC RDW 16.7 H [place] % (Auto) Eos % (Auto) Lymph # (Auto) Seg Neutrophils % INR D-Dimer POC ABG pCO2 POC ABG pO2 ABG Hemoglobin ABG Sodium ABG Potassium ABG Glucose Carboxyhemoglobin Sodium 136 L Potassium Chloride Carbon Dioxide BUN Creatinine Glucose 129 H POC Glucose 132 H Calcium Magnesium Ferritin Lactate Dehydrogenase C-Reactive Protein Arterial Blood Glucose Arterial Blood Ionized Calcium Urine WBC (Auto) Coronavirus (PCR) 08/24/20 08/25/20 08/26/20 10:57 18:39 11:57 RBC Hgb Hct MCV MCHC RDW [place] % (Auto) Eos % (Auto) Lymph # (Auto) Seg Neutrophils % INR D-Dimer POC ABG pCO2 POC ABG pO2 ABG Hemoglobin ABG Sodium ABG Potassium ABG Glucose Carboxyhemoglobin Sodium Potassium Chloride Carbon Dioxide BUN Creatinine Glucose POC Glucose 126 H 120 H 127 H Calcium Magnesium Ferritin Lactate Dehydrogenase C-Reactive Protein Arterial Blood Glucose Arterial Blood Ionized Calcium Urine WBC (Auto) Coronavirus (PCR) 08/26/20 08/26/20 08/28/20 18:44 23:31 19:34 RBC 3.09 L Hgb 8.7 L Hct 25.5 L MCV 82 L MCHC RDW 17.1 H [place] % (Auto) 9.1 H Eos % (Auto) Lymph # (Auto) 0.8 L Seg Neutrophils % 71.7 H INR D-Dimer POC ABG pCO2 POC ABG pO2 ABG Hemoglobin ABG Sodium ABG Potassium ABG Glucose Carboxyhemoglobin Sodium Potassium Chloride Carbon Dioxide BUN Creatinine Glucose POC Glucose 125 H 115 H Calcium Magnesium Ferritin Lactate Dehydrogenase C-Reactive Protein Arterial Blood Glucose Arterial Blood Ionized Calcium Urine WBC (Auto) Coronavirus (PCR) 08/28/20 08/28/20 08/29/20 19:34 22:16 08:06 RBC Hgb Hct MCV MCHC RDW [place] % (Auto) Eos % (Auto) Lymph # (Auto) Seg Neutrophils % INR D-Dimer POC ABG pCO2 POC ABG pO2 ABG Hemoglobin ABG Sodium ABG Potassium ABG Glucose Carboxyhemoglobin Sodium 130 L Potassium 2.6 L* Chloride 96.4 L Carbon Dioxide BUN Creatinine Glucose 119 H POC Glucose 110 H 119 H Calcium 7.8 L Magnesium Ferritin Lactate Dehydrogenase C-Reactive Protein Arterial Blood Glucose Arterial Blood Ionized Calcium Urine WBC (Auto) Coronavirus (PCR) 08/29/20 08/29/20 08/29/20 12:13 16:37 17:38 RBC Hgb Hct MCV MCHC RDW [place] % (Auto) Eos % (Auto) Lymph # (Auto) Seg Neutrophils % INR D-Dimer POC ABG pCO2 POC ABG pO2 ABG Hemoglobin ABG Sodium ABG Potassium ABG Glucose Carboxyhemoglobin Sodium 133 L Potassium 3.0 L Chloride 97.9 L Carbon Dioxide 21 L BUN Creatinine Glucose 111 H POC Glucose 109 H 106 H Calcium 8.3 L Magnesium 1.30 L Ferritin Lactate Dehydrogenase C-Reactive Protein Arterial Blood Glucose Arterial Blood Ionized Calcium Urine WBC (Auto) Coronavirus (PCR) 08/29/20 08/29/20 08/29/20 19:21 19:21 19:21 RBC Hgb Hct MCV MCHC RDW [place] % (Auto) Eos % (Auto) Lymph # (Auto) Seg Neutrophils % INR D-Dimer 688.12 H POC ABG pCO2 POC ABG pO2 ABG Hemoglobin ABG Sodium ABG Potassium ABG Glucose Carboxyhemoglobin Sodium Potassium 3.1 L Chloride Carbon Dioxide BUN Creatinine Glucose POC Glucose Calcium Magnesium 1.50 L Ferritin 1476.0 H Lactate Dehydrogenase C-Reactive Protein Arterial Blood Glucose Arterial Blood Ionized Calcium Urine WBC (Auto) Coronavirus (PCR) 08/29/20 08/29/20 08/31/20 19:21 Unknown 04:30 RBC 3.12 L Hgb 9.1 L Hct 25.7 L MCV 83 L MCHC 35 H RDW 17.4 H [place] % (Auto) 9.4 H Eos % (Auto) Lymph # (Auto) Seg Neutrophils % INR D-Dimer POC ABG pCO2 POC ABG pO2 ABG Hemoglobin ABG Sodium ABG Potassium ABG Glucose Carboxyhemoglobin Sodium Potassium Chloride Carbon Dioxide BUN Creatinine Glucose POC Glucose Calcium Magnesium Ferritin Lactate Dehydrogenase 373 H C-Reactive Protein 18.30 H Arterial Blood Glucose Arterial Blood Ionized Calcium Urine WBC (Auto) Coronavirus (PCR) Positive A 08/31/20 09/02/20 09/02/20 04:30 06:28 06:49 RBC Hgb Hct MCV MCHC RDW [place] % (Auto) Eos % (Auto) Lymph # (Auto) Seg Neutrophils % INR D-Dimer POC ABG pCO2 26.2 L POC ABG pO2 82.2 L ABG Hemoglobin 10.1 L ABG Sodium 134.5 L ABG Potassium 3.2 L ABG Glucose 127 H Carboxyhemoglobin 0.3 L Sodium 134 L Potassium 3.4 L Chloride Carbon Dioxide BUN Creatinine Glucose 129 H POC Glucose 109 H Calcium 8.0 L Magnesium Ferritin Lactate Dehydrogenase C-Reactive Protein Arterial Blood Glucose 127 H Arterial Blood Ionized Calcium 4.5 L Urine WBC (Auto) Coronavirus (PCR) 09/02/20 11:32 RBC Hgb Hct MCV MCHC RDW [place] % (Auto) Eos % (Auto) Lymph # (Auto) Seg Neutrophils % INR D-Dimer POC ABG pCO2 POC ABG pO2 ABG Hemoglobin ABG Sodium ABG Potassium ABG Glucose Carboxyhemoglobin Sodium Potassium Chloride Carbon Dioxide BUN Creatinine Glucose POC Glucose 112 H Calcium Magnesium Ferritin Lactate Dehydrogenase C-Reactive Protein Arterial Blood Glucose Arterial Blood Ionized Calcium Urine WBC (Auto) Coronavirus (PCR)
[2020-09-02] MEDS ORDERED: PIPERACIL/TAZOBACTA 4.5/NS 100 4.5 GM/100 ML VIAL IV SCH (14:00)
--- NOTE | 2020-09-02 14:19 | Progress Note ---
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 Objective - Constitutional Vitals: Vital Signs - 12hr 09/02/20 09/02/20 09/02/20 03:13 04:13 06:15 Temperature 98.0 F Pulse Rate 126 H Respiratory 20 Rate Blood Pressure 95/54 O2 Sat by Pulse 93 89 95 Oximetry 09/02/20 09/02/20 09/02/20 08:00 09:00 09:11 Temperature Pulse Rate 158 H 149 H Respiratory 21 18 Rate Blood Pressure 133/65 O2 Sat by Pulse 94 97 94 Oximetry 09/02/20 09/02/20 09/02/20 09:21 09:31 09:38 Temperature Pulse Rate 167 H 149 H 170 H Respiratory 18 25 H Rate Blood Pressure 133/65 133/65 133/65 O2 Sat by Pulse 98 85 Oximetry 09/02/20 09/02/20 09/02/20 09:41 09:51 09:52 Temperature Pulse Rate 153 H 148 H 170 H Respiratory 20 19 20 Rate Blood Pressure 133/65 133/65 133/65 O2 Sat by Pulse 94 92 95 Oximetry 09/02/20 09/02/20 09/02/20 10:01 10:11 10:21 Temperature Pulse Rate 137 H 120 H 109 H Respiratory 16 15 16 Rate Blood Pressure 106/53 106/53 106/53 O2 Sat by Pulse 93 95 96 Oximetry 09/02/20 09/02/20 09/02/20 10:31 10:41 10:51 Temperature Pulse Rate 96 H 103 H 94 H Respiratory 19 20 16 Rate Blood Pressure 106/53 106/53 106/53 O2 Sat by Pulse 93 96 94 Oximetry 09/02/20 09/02/20 09/02/20 11:01 11:11 11:21 Temperature Pulse Rate 105 H 102 H Respiratory 16 17 21 Rate Blood Pressure 70/37 70/37 74/36 O2 Sat by Pulse 96 96 94 Oximetry 09/02/20 09/02/20 09/02/20 11:31 11:41 11:51 Temperature Pulse Rate 111 H 91 H 103 H Respiratory 16 17 14 Rate Blood Pressure 74/36 74/36 74/36 O2 Sat by Pulse 92 100 100 Oximetry 09/02/20 12:00 Temperature Pulse Rate 99 H Respiratory 16 Rate Blood Pressure 68/38 O2 Sat by Pulse 97 Oximetry General appearance: Present: no acute distress, well-nourished - EENT Eyes: PERRL, EOM intact ENT: hearing intact, clear oral mucosa Ears: bilateral: normal - Neck Neck: supple, normal ROM - Respiratory Respiratory effort: normal Respiratory: bilateral: CTA - Breasts Breasts: normal - Cardiovascular Rhythm: regular Heart Sounds: Present: S1 & S2. Absent: gallop, rub Extremities: pulses intact, No edema, normal color, Full ROM - Gastrointestinal General gastrointestinal: Present: soft, non-tender, non-distended, normal bowel sounds - Genitourinary Male genitourinary: normal - Integumentary Integumentary: clear, warm, dry - Musculoskeletal Musculoskeletal: 1, strength equal bilaterally - Neurologic Neurologic: moves all extremities - Psychiatric Psychiatric: memory intact, appropriate mood/affect, intact judgment & insight - Labs CBC & Chem 7: 08/31/20 04:30 08/31/20 04:30 Labs: Abnormal lab results 09/02/20 09/02/20 09/02/20 Range/Units 06:28 06:49 11:32 POC ABG pCO2 26.2 L (32.0-48.0) mmHg POC ABG pO2 82.2 L (83-108) mmHg ABG Hemoglobin 10.1 L (12.0-17.5) ABG Sodium 134.5 L (136.0-145.0) mmol/L ABG Potassium 3.2 L (3.40-4.50) mmol/L ABG Glucose 127 H (65-95) mg/dL Carboxyhemoglobin 0.3 L (0.5-1.5) POC Glucose 109 H 112 H (70-105) mg/dL Arterial Blood Glucose 127 H (65-95) mg/dL Arterial Blood Ionized Calcium 4.5 L (4.6-5.3) mg/dL
[2020-09-02] MEDS ORDERED: HEPARIN 10,000 UNITS/10 ML VIAL IV PRN (15:05)
--- NOTE | 2020-09-02 15:44 | Consultation ---
History of Present Illness - Reason for Consult Consult date: 09/02/20 COVID-19 Requesting physician: MEE COBURN - History of Present Illness The patient is a 64-year-old male with hypertension, coronary artery disease, peripheral vascular disease, gout, alcohol dependence was admitted to the hospital on 08/15/2020 due to bleeding from his left foot which is a site of a previous surgery. Patient was noted to have wound dehiscence complicated by wound necrosis. Was seen by vascular surgery. He underwent a TMA. Due to fever, patient was receiving IV levofloxacin for UTI. COVID-19 test done on 08/29/2020 for placement reasons came back positive. Patient has been having intermittent fevers since 08/28/2020. Today, a code met was called due to tachypnea and labored respirations. Patient was placed on BiPAP and transferred to ICU. Infectious diseases was consulted due to COVID-19. Review of Systems: reviewed in the chart, unable to obtain, minimize risk of transmission Past History Past Medical History: CAD, hypertension, hyperlipidemia, PVD Past Surgical History: CABG, tonsillectomy, Other (Left transmetatarsal amputation, revascularization of left lower extremity, removal of cyst on right chest) Social history: single Family history: no significant family history Medications and Allergies Allergies Allergy/AdvReac Type Severity Reaction Status Date / Time Penicillins Allergy Hives Verified 07/16/20 22:49 Home Medications Medication Instructions Recorded Confirmed Last Taken Type AtorvaSTATin [Lipitor] 40 mg PO QHS 07/17/20 08/15/20 Unknown History Clopidogrel [Plavix] 75 mg PO QDAY 07/17/20 08/15/20 Unknown History Folic Acid [Folvite] 1 mg PO QDAY 07/17/20 08/15/20 Unknown History Metoprolol [Lopressor TAB] 50 mg PO BID 07/17/20 08/15/20 Unknown History Thiamine [Vitamin B-1] 100 mg PO QDAY 07/17/20 08/15/20 Unknown History Pantoprazole [Protonix TAB] 40 mg PO QDAC #30 tablet 08/06/20 08/15/20 Unknown Rx amLODIPine 10 mg PO QDAY #30 tablet 08/06/20 08/15/20 Unknown Rx cilostazoL [Pletal] 100 mg PO BID #60 tablet 08/06/20 08/15/20 Unknown Rx levoFLOXacin [Levaquin TAB] 750 mg PO DAILY #5 tablet 08/06/20 08/15/20 Unknown Rx oxyCODONE /ACETAMINOPHEN [Percocet 1 tab PO Q4H PRN #14 tablet 08/06/20 08/15/20 Unknown Rx 5/325 mg] Active Meds: Active Medications Acetaminophen (Acetaminophen 325 Mg Tab) 650 mg PO Q4H PRN PRN Reason: Pain MILD(1-3)/Fever >100.5/REYES Last Admin: 09/02/20 12:17 Dose: 650 mg Documented by: Albuterol (Albuterol 2.5 Mg/3 Ml Nebu) 2.5 mg IH Q4HRT PRN PRN Reason: Shortness Of Breath Last Admin: 08/20/20 12:53 Dose: 2.5 mg Documented by: Amlodipine Besylate (Amlodipine 10 Mg Tab) 10 mg PO QDAY [facility] Last Admin: 09/02/20 11:02 Dose: Not Given Documented by: Atorvastatin Calcium (Atorvastatin 40 Mg Tab) 40 mg PO QHS [facility] Last Admin: 09/01/20 22:24 Dose: 40 mg Documented by: Cilostazol (Cilostazol 100 Mg Tab) 100 mg PO BID [facility] Last Admin: 09/02/20 12:17 Dose: 100 mg Documented by: Clopidogrel Bisulfate (Clopidogrel 75 Mg Tab) 75 mg PO QDAY [facility] Last Admin: 09/02/20 09:38 Dose: 75 mg Documented by: Dexamethasone (Dexamethasone 4 Mg/Ml Vial) 6 mg IV DAILY [facility] Stop: 09/12/20 15:59 Folic Acid (Folic Acid 1 Mg Tab) 1 mg PO QDAY [facility] Last Admin: 09/02/20 09:40 Dose: 1 mg Documented by: Heparin Sodium (Porcine) (Heparin 10,000 Units/10 Ml Vial) 3,400 unit 40 unit/kg (3400 unit) IV Q6H PRN PRN Reason: Anti-Xa Assay < 0.1 units/ml Sodium Chloride (Nacl 0.9% 500 Ml) 500 mls @ 1 mls/hr IV DIRECT PRN PRN Reason: ARTERIAL LINE FLUSH Norepinephrine (Levophed Drip 4 Mg/Ns 250 Ml) 4 mg in 250 mls @ 7.5 mls/hr IV TITR [facility]; Protocol Last Titration: 09/02/20 14:45 Dose: 10 mcg/min, 37.5 mls/hr Documented by: Heparin Sodium/Sodium Chloride (Heparin/ 0.45% Nacl-25,000 Unit/500 Ml) 25,000 unit in 500 mls @ 25.5 mls/hr IV TITR [facility]; Protocol Vasopressin 20 unit/ Sodium (Chloride) 101 mls @ 9.09 mls/hr IV TITR [facility]; Protocol Aztreonam 500 mg/ Sodium (Chloride) 50 mls @ 50 mls/hr IV Q12H [facility]; Protocol Vancomycin HCl (Vancomycin/Ns 1 Gm/250 Ml) 1 gm in 250 mls @ 166.667 mls/hr IV Q12H [facility]; Protocol Stop: 09/07/20 15:59 Levofloxacin (Levofloxacin 750 Mg Tab) 750 mg PO DAILY [facility]; Protocol Stop: 09/06/20 09:59 Last Admin: 09/02/20 09:39 Dose: 750 mg Documented by: Loperamide HCl (Loperamide 2 Mg Cap) 2 mg PO PRN PRN PRN Reason: Diarrhea Last Admin: 08/28/20 12:51 Dose: 2 mg Documented by: Metoprolol Tartrate (Metoprolol Tartrate 50 Mg Tab) 50 mg PO BID [facility] Last Admin: 09/02/20 09:38 Dose: 50 mg Documented by: Morphine Sulfate (Morphine 4 Mg/1 Ml Inj) 2 mg IV Q6H PRN PRN Reason: Pain , Severe (7-10) Last Admin: 08/25/20 11:58 Dose: 2 mg Documented by: Ondansetron HCl (Ondansetron 4 Mg/2 Ml Inj) 4 mg IV Q8H PRN PRN Reason: Nausea And Vomiting Last Admin: 08/18/20 17:46 Dose: 4 mg Documented by: Oxycodone/Acetaminophen (Oxycodone /Acetaminophen 5-325mg Tab) 1 tab PO Q6H PRN PRN Reason: Pain, Moderate (4-6) Last Admin: 08/31/20 10:05 Dose: 1 tab Documented by: Oxycodone/Acetaminophen (Oxycodone /Acetaminophen 5-325mg Tab) 2 tab PO Q6H PRN PRN Reason: Pain , Severe (7-10) Last Admin: 08/31/20 22:53 Dose: 2 tab Documented by: Pantoprazole Sodium (Pantoprazole 40 Mg Tab) 40 mg PO QDAC [facility] Last Admin: 09/02/20 09:38 Dose: 40 mg Documented by: Sodium Chloride (Sodium Chloride 0.9% 10 Ml Flush Syringe) 10 ml IV BID [facility] Last Admin: 09/02/20 12:18 Dose: 10 ml Documented by: Sodium Chloride (Sodium Chloride 0.9% 10 Ml Flush Syringe) 10 ml IV PRN PRN PRN Reason: LINE FLUSH Thiamine HCl (Thiamine 100 Mg Tab) 100 mg PO QDAY [facility] Last Admin: 09/02/20 09:39 Dose: 100 mg Documented by: Physical Examination - Physical Exam Narrative exam: Physical Exam (reviewed in chart to minimize risk of transmission) Constitutional: deferred Head, Ears, Nose: deferred Eyes: deferred Neck: deferred Oral: deferred Cardiovascular: deferred Respiratory: deferred GI: deferred Musculoskeletal: deferred Skin: deferred Hem/Lymphatic: deferred Psych: deferred Neurological: deferred - Constitutional Vitals: Vital Signs Temp Pulse Resp BP Pulse Ox 98.0 F 100 H 17 81/46 92 09/02/20 04:13 09/02/20 14:21 09/02/20 14:21 09/02/20 14:21 09/02/20 14:21 Temperature -Last 24 Hours Temperature 98.0 F Temperature 100.2 F Temperature 98.9 F Results - Labs CBC & Chem 7: 08/31/20 04:30 08/31/20 04:30 Labs: Abnormal lab results 09/02/20 09/02/20 09/02/20 Range/Units 06:28 06:49 11:32 POC ABG pCO2 26.2 L (32.0-48.0) mmHg POC ABG pO2 82.2 L (83-108) mmHg ABG Hemoglobin 10.1 L (12.0-17.5) ABG Sodium 134.5 L (136.0-145.0) mmol/L ABG Potassium 3.2 L (3.40-4.50) mmol/L ABG Glucose 127 H (65-95) mg/dL Carboxyhemoglobin 0.3 L (0.5-1.5) POC Glucose 109 H 112 H (70-105) mg/dL Arterial Blood Glucose 127 H (65-95) mg/dL Arterial Blood Ionized Calcium 4.5 L (4.6-5.3) mg/dL - Imaging and Cardiology Chest x-ray: report reviewed, image reviewed (b/l pneumonia) Assessment and Plan Cultures: 08/16/2020 SARS CoV2 PCR: Negative 08/29/2020 SARS CoV2 PCR: Positive 08/15/2020 urine culture: No growth 08/24/2020 blood culture: No growth 08/28/2020 blood culture: No growth 08/28/2020 urine culture: No growth A/P: 64-year-old male with hypertension, coronary artery disease, peripheral vascular disease, gout, alcohol dependence was admitted to the hospital on 08/15/2020 due to bleeding from his left foot which is a site of a previous surgery. Patient was noted to have wound dehiscence complicated by wound necrosis. Was seen by vascular surgery. He underwent a TMA. Due to fever, patient was receiving IV levofloxacin for UTI. COVID-19 test done on 08/29/2020 for placement reasons came back positive. Patient has been having intermittent fevers since 08/28/2020. 09/02/2020, a code MET was called due to tachypnea and labored respirations: #Shock: Probably from severe COVID-19. #Bilateral pneumonia: Secondary to COVID-19. Patient with severe hypoxia, elevated inflammatory markers. Recently had completed levofloxacin. #Acute hypoxic respiratory failure: Requiring BiPAP/HFNC. #Peripheral vascular disease, wound dehiscence and necrosis: underwent TMA by vascular surgery #Coronary artery disease, CHF Recs: -Agree with IV/PO Dexamethasone 6 mg daily x 10 days -Remdesivir ordered -Continue empiric antibiotics (Aztreonam, Levofloxacin, Vancomycin), procalcitonin ordered -prophylactic anticoagulation based on d-dimer per hospital protocol -trend ferritin, LDH, d-dimer, CRP every 2-3 days for risk stratification and to assess disease progression Suni Arenas MD, FACP [facility] ([facility]) O: [phone] F: [phone]
[2020-09-02] MEDS ORDERED: VANCOMYCIN/NS 1 GM/250 ML 1 GM/250 ML BAG IV SCH (16:00)
[2020-09-02] MEDS: AZTREONAM 500 MG in SODIUM CHLORIDE 0.9% 50 ML IV SCH (16:25)
[2020-09-02 16:50] LABS: Basophils % (Auto) 0.3 % (0.0-1.8); Hematocrit 24.3 % (35.5-45.6); Hemoglobin 8.1 gm/dl (11.8-15.2); Lymphocytes # (Auto) 1.4 K/mm3 (1.2-5.4); Lymphocytes % (Auto) 12.7 % (13.4-35.0); Mean Corpuscular HGB Conc 33 % (32-34); Mean Corpuscular Volume 83 fl (84-94); Monocytes # (Auto) 0.5 K/mm3 (0.0-0.8); Monocytes % (Auto) 4.5 % (0.0-7.3); Platelet Count 354 K/mm3 (140-440); Red Blood Count 2.94 M/mm3 (3.65-5.03); Red Cell Distribution Width 17.7 % (13.2-15.2)
[2020-09-02 17:01] LABS: Calcium 7.8 mg/dL (8.4-10.2)
[2020-09-02 17:28] LABS: INR 1.23 (0.87-1.13)
[2020-09-02 17:29] LABS: Partial Thromboplastin Time 50.2 Sec. (24.2-36.6)
[2020-09-02] MEDS: dexAMETHasone 4 MG/ML VIAL IV SCH (17:50)
--- NOTE | 2020-09-02 17:52 | XRay Report ---
CHEST 1 VIEW 09/02/2020 5:20 PM INDICATION / CLINICAL INFORMATION: R arm PICC placement. COMPARISON: 08/28/2020. FINDINGS: SUPPORT DEVICES: Right-sided PICC line has its tip over the right atrium. This could be retracted 4 t o 5 cm. HEART / MEDIASTINUM: Stable cardiomegaly status post previous median sternotomy. LUNGS / PLEURA: Development of diffuse bilateral opacity with mild residual aeration on the right gre ater than left. No pneumothorax. ADDITIONAL FINDINGS: No significant additional findings. IMPRESSION: 1. Retracted: 4-5 cm. 2. Development of bilateral infiltrates worrisome for pneumonia. Signer Name: Kunal Arreola MD Signed: 09/02/2020 5:47 PM Workstation Name: [id number]
[2020-09-02] MEDS: HEPARIN/ 0.45% NACL DRIP 25,000 UNIT/500 ML BAG IV SCH (17:53)
[2020-09-02] MEDS ORDERED: REMDESIVIR 200 MG in SODIUM CHLORIDE 0.9% 250ML 250 ML IV ONE (18:00)
[2020-09-02] MEDS ORDERED: REMDESIVIR 100 MG VIAL IV ONE (18:00)
[2020-09-02] MEDS: SODIUM CHLORIDE 0.9% 50 ML IVPB IV SCH (18:50)
--- NOTE | 2020-09-03 00:19 | Consultation ---
PULMONARY CRITICAL CARE CONSULT NOTE CONSULTING PHYSICIAN: Dr. Lee. REASON FOR CONSULTATION: Acute hypoxemic respiratory failure, COVID-19 pneumonia. CHIEF COMPLAINT AND HISTORY OF PRESENT ILLNESS: As follows: The patient is a 64-year-old male with a past medical history significant in this context for a diagnosis of coronary artery disease, status post bypass grafting, but also alcohol dependence, came into the Emergency Room on the 08/15/2020 just about 3 weeks ago complaining of pain and bleeding from the site of his left foot surgery. He was found in distress by EMS. In the ER, he was found to have a left foot wound dehiscence complicated by wound necrosis. Vascular Surgery team was consulted. He was admitted to the medical floor for further management. Of note, the coronavirus PCR test at that time was negative. Management was being continued on the medical floor. He did undergo excisional debridement of the skin, muscle, and soft tissue of his left foot wound, which measured 9.5 x 6 x 1 cm. He underwent a pulse lavage of the left foot wound and coverage of the left foot wound with a wound VAC placement. This was on 08/12/2020. Earlier today, a code MET was called, which is a rapid ____ due to increased work of breathing and tachypnea. He was found in respiratory distress, transferred to the Intensive Care Unit, placed on continuous positive airway ventilation therapy and we were asked to assist with management. When I stopped by to see him, he was resting in bed. He was lethargic. No vomiting. He was riding the set rate on the BiPAP machine. I believe it was set at 18/8 with a rate of 16. He was able to nod his head slowly to respond to some questions. With regards to the patient's tobacco use/abuse history, that is unknown. Unfortunately, this really is as much of the history of presentation as I have. PAST MEDICAL HISTORY: Hypertension, coronary artery disease, peripheral vascular disease, hyperlipidemia, gout, alcohol dependence, and gastroesophageal reflux disease. He is obese. PAST SURGICAL HISTORY: Status post coronary artery bypass grafting, status post tonsillectomy. He has had a left transmetatarsal amputation. He has had revascularization of the left lower extremity and removal of a cyst in the right chest. MEDICATIONS: He was on at the time I stopped by to see him were reviewed. Pertinent medications include the following: Tylenol 650 mg p.o. q. 4 hours p.r.n. mild pain or fevers, albuterol 2.5 mg nebulized q. 4 hours p.r.n. shortness of breath, amlodipine 10 mg p.o. daily, Lipitor 40 mg p.o. at bedtime, cilostazol 100 mg p.o. b.i.d., Plavix 75 mg p.o. daily, folic acid 1 mg p.o. daily, Levaquin 750 mg p.o. daily, loperamide 2 mg p.o. q. 4 hours p.r.n. diarrhea, metoprolol 50 mg p.o. b.i.d., morphine sulfate 2 mg IV q.6 hours p.r.n. severe pain, Levophed drip was going at 4 mcg per minute, Zofran 4 mg IV q. 8 hours p.r.n. nausea and vomiting, Percocet one tablet p.o. q. 6 hours p.r.n. moderate pain, Protonix 40 mg p.o. daily, thiamine 100 mg p.o. daily. He had received about 1-1/2 liters of bolus of normal saline. ALLERGIES: PENICILLINS. Nature of this allergy is unknown. DIET: Obese gentleman. Acute weight loss or gain history is unknown. FAMILY AND SOCIAL HISTORY: Apparently lived in the community prior to this presentation, has a history of alcohol abuse. Tobacco, illicit drug use or abuse history are unknown. FAMILY HISTORY: Otherwise, unknown. REVIEW OF SYSTEMS: Unobtainable secondary to patient's medical and mental condition. Since he has been here, no gross hematochezia or melena, no gross hematuria, no hematemesis, no hemoptysis has been reported, and no witnessed seizures. Review of systems otherwise unobtainable or as in body of history above. PHYSICAL EXAMINATION: VITAL SIGNS: On examination at presentation in the Emergency Room, initially on the 08/15/2020, the first vital sign shows a temperature was 96.9 degrees Fahrenheit. His pulse was 80, his respiratory rate was 18, the first blood pressure was 142/73, and O2 sats were 99%. Inspired oxygen concentration at that time was not recorded. When I stopped by to see him, O2 sats were 92% that was on the bilevel positive airway ventilation machine with an IPAP of 18 and EPAP of 8 and 60% FiO2. He had earlier been on 100% via high-flow nasal cannula. GENERAL: Again, he is an elderly looking obese male. Normocephalic, atraumatic, on the bilevel positive airway pressure ventilation machine with mildly increased respiratory effort at rest. HEAD, EYES, EARS, NOSE AND THROAT: He was anicteric. no conjunctival erythema. He had the BiPAP full face mask over his face. No gross jugular venous distention, no thyromegaly. He does have a large neck circumference. Grossly, there were no palpable lymph nodes in the supraclavicular or submandibular lymph node chains. LUNGS: Auscultation of both lung [place] revealed diminished bilateral breath sounds, prolonged expiratory phase. No active wheezing. Inspiratory rhonchi in the bases. HEART: Heart sounds 1 and 2 are heard. Irregular rate and rhythm at the time of my evaluation without overt rubs or murmurs. ABDOMEN: Soft, full, protuberant. Bowel sounds are positive. Nontender. No palpable hepatosplenomegaly. EXTREMITIES: Without overt digital clubbing or cyanosis. Trace pedal edema. He has the postop changes to the left foot/left lower extremity. NEUROLOGIC: The pupils are equal, round, about 3 mm, reactive to light. Extraocular muscle movements appeared intact. He had some spontaneous movements to all his extremities. He was lethargic. PSYCHIATRIC: His mood and affect were flat. LABORATORY DATA: From my review are as follows: Admission labs, white count was 9500, hemoglobin 9.0, hematocrit 25.8, and platelet count was 357. No manual differential. Serum sodium was 138, potassium 3.7, chloride 102, bicarbonate 29, BUN was 9, creatinine was 0.7, and glucose was 188. Urinalysis at presentation showed small leukocyte esterase with 31 white cells per high power field. Coronavirus PCR on was negative. Labs from the showed a hemoglobin of 9.1, white count of 6600, and platelet count was within normal limits. D-dimer was measured at 688 on 08/29/2020. A repeat coronavirus PCR testing was done on also and was positive. Ferritin on the was 1476. CRP on the was 18.3. Arterial blood gas early this morning showed a pH of 7.44, pCO2 of 26, and pO2 of 82, that was on 100% FiO2. It is unclear if that was on high-flow or on BiPAP. Total of about 5 sets of blood cultures, no growth to date after four and five days. Urine cultures also drawn on the 5th, no growth. Urine cultures drawn on admissions were no growth to date. He had lower extremity arterial ultrasounds earlier to look for peripheral vascular disease, showed bilateral distal occlusion. Chest x-ray done on the shows gross cardiomegaly, median sternotomy wires in place, faint bibasilar infiltrates, in particular the left lower lobe region, no gross pneumothorax, no gross bony fracture, at the worst mild interstitial edema. ASSESSMENT: 1. Acute hypoxemic respiratory failure, on mechanical ventilatory support. 2. COVID-19 infection. 3. Bilateral pneumonia versus pulmonary edema. 4. Severe sepsis with shock. 5. Peripheral vascular disease. 6. Anemia that is microcytic. 7. History of alcohol abuse. 8. Acute encephalopathy. 9. History of obesity. 10. History of coronary artery disease. 11. History of gout. 12. Hyperlipidemia. 13. Hypertension, now hypotensive. 14. Left lower extremity, left foot ulcer. PLAN: I would like to assume that while his shock may be multifactorial, I believe there is a significant element of septic shock at play. I notice his cultures are negative to this point; however, I think we probably need to broaden his anti-infective therapy. I will go ahead also and place an Infectious Disease consult. I will get a procalcitonin level. In light of his allergies, I will go with aztreonam and done one dose of vancomycin. Lactic acid level will be ordered. White count will be repeated. Anti-infectives will be deescalated based on results of clinical and microbiological data. We will keep him on bilevel positive airway pressure ventilation therapy round the clock in the short time with a plan to transition to bedtime BiPAP with p.r.n. daytime use. A stat chest x-ray will be ordered. Bronchodilators will be ordered in the short term. Aspiration precautions will be maintained. Especially with his positive coronavirus testing, now I am going to start him on dexamethasone for severe COVID-19 infection. He may be a candidate for remdesivir. I will await ID opinion. I will repeat his ferritin level as well as his D-dimer level. I certainly cannot rule out venous thromboembolic phenomenon. If okay with the Vascular Surgery team, I will start him on full empiric anticoagulation with IV heparin. Bilateral lower extremity venous Dopplers will be done. He is appropriately on GI prophylaxis. He will be placed on DVT prophylaxis. I will continue the Levaquin as ordered at this point ____. A repeat chest x-ray will be done. Flu and pneumonia vaccination will be addressed per protocol. Levophed drip has been increased to 10 mcg per minute because his mean arterial pressures are running in the 50s. I will start a vasopressin drip in light of his tachyarrhythmia. Vasopressors will be weaned to keep mean arterial pressure greater than or equal to about 65 mmHg. A 2D echocardiogram will be done if none has been done recently to ensure that he does not need inotropic support. He did have one done on 07/31/2020, ejection fraction was 60-65%. He did have diastolic dysfunction. Thank you very much for the consult. We will follow along and make further recommendations as picture progresses/becomes clearer. He is critically ill on life-sustaining interventions including continuous BiPAP and vasopressors, at very high risk of from cardiopulmonary system decompensation as well as hematologic system. At this time, I spent about 40 minutes of critical care time without overlap and excluding any procedural time that may be necessary. JOB# [id number] DEDRICK/OSIEL WILLIAMSON
[2020-09-03] MEDS: AZTREONAM 500 MG in SODIUM CHLORIDE 0.9% 50 ML IV SCH (02:43)
[2020-09-03] MEDS: VANCOMYCIN 1,500 MG in SODIUM CHLORIDE 0.9% 500 ML 500 ML IV SCH ×2 (06:04→23:34)
[2020-09-03 08:34] LABS: Alanine Aminotransferase 24 units/L (7-56); Albumin 2.7 g/dL (3.9-5); BUN/Creatinine Ratio 27; Blood Urea Nitrogen 24 mg/dL (9-20); Calcium 8.2 mg/dL (8.4-10.2); Hemolysis Index 0
[2020-09-03] MEDS: METOPROLOL TARTRATE 50 MG TAB PO SCH ×2 (09:39→21:49)
[2020-09-03] MEDS: CILOSTAZOL 100 MG TAB PO SCH ×2 (09:39→21:49)
[2020-09-03] MEDS: FOLIC ACID 1 MG TAB PO SCH (09:40)
[2020-09-03] MEDS: levoFLOXacin 750 MG TAB PO SCH (09:40)
[2020-09-03] MEDS: PANTOPRAZOLE 40 MG TAB PO SCH (09:40)
[2020-09-03] MEDS: THIAMINE 100 MG TAB PO SCH (09:40)
[2020-09-03] MEDS: dexAMETHasone 4 MG/ML VIAL IV SCH (09:40)
[2020-09-03] MEDS: CLOPIDOGREL 75 MG TAB PO SCH (09:42)
[2020-09-03] MEDS: oxyCODONE /ACETAMINOPHEN 5-325MG TAB PO PRN ×2 (10:26→17:22)
--- NOTE | 2020-09-03 12:46 | Progress Note ---
Assessment and Plan Cultures: 08/16/2020 SARS CoV2 PCR: Negative 08/29/2020 SARS CoV2 PCR: Positive 08/15/2020 urine culture: No growth 08/24/2020 blood culture: No growth 08/28/2020 blood culture: No growth 08/28/2020 urine culture: No growth A/P: 64-year-old male with hypertension, coronary artery disease, peripheral vascular disease, gout, alcohol dependence was admitted to the hospital on 08/15/2020 due to bleeding from his left foot which is a site of a previous surgery. Patient was noted to have wound dehiscence complicated by wound necrosis. Was seen by vascular surgery. He underwent a TMA. Due to fever, patient was receiving IV levofloxacin for UTI. COVID-19 test done on 08/29/2020 for placement reasons came back positive. Patient has been having intermittent fevers since 08/28/2020. 09/02/2020, a code MET was called due to tachypnea and labored respirations: #Shock: Probably from severe COVID-19. #Bilateral pneumonia: Secondary to COVID-19. Patient with severe hypoxia, elevated inflammatory markers. Recently had completed levofloxacin. #Acute hypoxic respiratory failure: Requiring BiPAP/HFNC. #Peripheral vascular disease, wound dehiscence and necrosis: underwent TMA by vascular surgery #Coronary artery disease, CHF Recs: -Agree with IV/PO Dexamethasone 6 mg daily x 10 days -Remdesivir ordered -Continue empiric antibiotics (Aztreonam, Levofloxacin, Vancomycin). Procal elevated. Continue for now. -prophylactic anticoagulation based on d-dimer per hospital protocol -trend ferritin, LDH, d-dimer, CRP every 2-3 days for risk stratification and to assess disease progression Tara Stockton MD [facility] ([facility] O: [phone] F: [phone] Subjective Date of service: 09/03/20 Principal diagnosis: PVD with gangrene/status post TMA and debridement Objective - Exam Narrative Exam: Physical Exam (reviewed in chart to minimize risk of transmission) Constitutional: deferred Head, Ears, Nose: deferred Eyes: deferred Neck: deferred Oral: deferred Cardiovascular: deferred Respiratory: deferred GI: deferred Musculoskeletal: deferred Skin: deferred Hem/Lymphatic: deferred Psych: deferred Neurological: deferred - Constitutional Vitals: Vital Signs Temp Pulse Resp BP Pulse Ox 97.5 F L 86 11 L 117/58 95 09/03/20 08:00 09/03/20 11:00 09/03/20 11:00 09/03/20 11:00 09/03/20 12:21 Temperature -Last 24 Hours Temperature 97.5 F Temperature 98.9 F Temperature 98.8 F Temperature 98.1 F Temperature 99.0 F - Labs CBC & Chem 7: 09/02/20 15:55 09/03/20 07:13 Labs: Abnormal lab results 09/02/20 09/02/20 09/02/20 Range/Units 15:55 15:55 15:55 WBC (4.5-11.0) K/mm3 RBC (3.65-5.03) M/mm3 Hgb (11.8-15.2) gm/dl Hct (35.5-45.6) % MCV (84-94) fl MCH (28-32) pg RDW (13.2-15.2) % Lymph % (Auto) (13.4-35.0) % Seg Neutrophils % (40.0-70.0) % Seg Neutrophils # (1.8-7.7) K/mm3 PT 15.5 H (12.2-14.9) Sec. INR 1.23 H (0.87-1.13) APTT 50.2 H (24.2-36.6) Sec. D-Dimer 2186.40 H (0-234) ng/mlDDU Potassium (3.6-5.0) mmol/L Chloride (98-107) mmol/L Carbon Dioxide 21 L (22-30) mmol/L BUN 30 H (9-20) mg/dL Creatinine 1.6 H (0.8-1.3) mg/dL Glucose 125 H (75-100) mg/dL POC Glucose (70-105) mg/dL Calcium 7.8 L (8.4-10.2) mg/dL Ferritin 1892.0 H (30.0-300.0) ng/mL AST (5-40) units/L Total Protein (6.3-8.2) g/dL Albumin (3.9-5) g/dL 01/06/1309/02/20 09/03/20 Range/Units 15:55 17:34 07:13 WBC 11.2 H (4.5-11.0) K/mm3 RBC 2.94 L (3.65-5.03) M/mm3 Hgb 8.1 L (11.8-15.2) gm/dl Hct 24.3 L (35.5-45.6) % MCV 83 L (84-94) fl MCH 27 L (28-32) pg RDW 17.7 H (13.2-15.2) % Lymph % (Auto) 12.7 L (13.4-35.0) % Seg Neutrophils % 82.5 H (40.0-70.0) % Seg Neutrophils # 9.3 H (1.8-7.7) K/mm3 PT (12.2-14.9) Sec. INR (0.87-1.13) APTT (24.2-36.6) Sec. D-Dimer (0-234) ng/mlDDU Potassium 3.2 L (3.6-5.0) mmol/L Chloride 109.7 H (98-107) mmol/L Carbon Dioxide (22-30) mmol/L BUN 24 H (9-20) mg/dL Creatinine (0.8-1.3) mg/dL Glucose 142 H (75-100) mg/dL POC Glucose 127 H (70-105) mg/dL Calcium 8.2 L (8.4-10.2) mg/dL Ferritin (30.0-300.0) ng/mL AST 75 H (5-40) units/L Total Protein 5.8 L (6.3-8.2) g/dL Albumin 2.7 L (3.9-5) g/dL
[2020-09-03] MEDS: amLODIPine 10 MG TAB PO SCH (12:55)
--- NOTE | 2020-09-03 13:36 | Progress Note ---
Assessment and Plan Acute hypoxemic respiratory failure, on mechanical ventilatory support. COVID-19 infection. Bilateral pneumonia versus pulmonary edema. Severe sepsis with shock. Peripheral vascular disease. Anemia that is microcytic. History of alcohol abuse. Acute encephalopathy. History of obesity. History of coronary artery disease. History of gout. Hyperlipidemia. Hypertension, now hypotensive. Left lower extremity / left foot ulcer. - continue attempts top transition to qhs only BIPAP - prn CXR's & ABG's at this point - Aspiration precautions - continue to wean supplemental oxygen for target O2 sat's > 92% acutely - bronchodilators with pulmonary hygiene per RT - wean per pulmonary driven protocols otherwise - avoid nephrotoxins, renally dose all medications - accuchecks with glycemic control per SSI (While critically ill target blood glucose of 140-180 mg/dL; avoid hypoglycemia) - avoid benzodiazepine's, reduce the possibility of delirium - complete AB's per ID rec's - prn analgesia per CPOT score - Maintenance of sleep-wake cycle, avoid delirium - enteral nutritional support at goal rate as tolerated - G.I. & VTE prophylaxis - PT/OT/ROM exercises - continue mobility protocols for pressure ulcer prophylaxis - Monitor hemodynamics closely - continue other care per attending / other consultants - discharge planning ongoing concurrently COVID SPECIFIC INTERVENTIONS - continue Remdesivir as per ID/Pulmonary developed protocols - systemic steroids for severe COVID-19 infection empirically - follow repeat COVID tests results - zinc and vitamin C supplementation - Monitor inflammatory markers per facility protocol - ferritin, Ddimer, CRP - therapeutic anticoagulation per system Protocol based on d-dimer and clinical considerations - Continue contact and airborne isolation .... Re-evaluate in am & prn CONDITION: CRITICAL PROGNOSIS: GUARDED CODE STATUS: FULL CODE The high probability of a clinically significant, sudden or life-threatening deterioration of the [respiratory, cardiovascular, renal & neurologic] system(s) required my full and direct attention, intervention and personal management. The aggregate critical care time was [33] minutes without overlap. Time includes spent on; [x] Data Review and interpretation [x] Patient assessment and monitoring of vital signs [x] Documentation [x] Medication orders and management Subjective Date of service: 09/03/20 Principal diagnosis: Ac hypoxemic resp failure; COVID-19; Pneumonia; Sepsis; P VD; L. foot ulcer Interval history: Patient is seen today for: Acute hypoxemic respiratory failure; COVID-19 infection; Bilateral pneumonia versus pulmonary edema; Severe sepsis with shock; Peripheral vascular disease; Acute encephalopathy; Left lower extremity / left foot ulcer. Seen and examined at bedside; 24hour events reviewed; nursing and respiratory care staff consulted; no adverse overnight events reported to me; resting p eacefully in bed; remains on HFNC; tolerated BIPAP overnight; no emesis or overt aspiration; nods head yes to pain question Objective Vital Signs - 12hr 09/03/20 09/03/20 09/03/20 01:41 01:51 02:01 Temperature Pulse Rate 89 104 H 86 Respiratory 17 18 21 Rate Blood Pressure 107/41 106/48 117/42 O2 Sat by Pulse 97 94 94 Oximetry 09/03/20 09/03/20 09/03/20 02:11 02:21 02:30 Temperature Pulse Rate 90 103 H 89 Respiratory 13 13 13 Rate Blood Pressure 117/42 118/70 121/59 O2 Sat by Pulse 95 96 96 Oximetry 09/03/20 09/03/20 09/03/20 02:41 02:51 03:00 Temperature Pulse Rate 92 H 93 H 94 H Respiratory 11 L 14 14 Rate Blood Pressure 121/59 112/53 110/48 O2 Sat by Pulse 95 97 98 Oximetry 09/03/20 09/03/20 09/03/20 03:11 03:21 03:30 Temperature Pulse Rate 86 85 105 H Respiratory 12 16 9 L Rate Blood Pressure 110/48 114/47 110/56 O2 Sat by Pulse 97 98 99 Oximetry 09/03/20 09/03/20 09/03/20 03:41 03:51 04:00 Temperature 98.9 F Pulse Rate 96 H 102 H 91 H Respiratory 13 15 20 Rate Blood Pressure 110/56 116/50 O2 Sat by Pulse 99 98 98 Oximetry 09/03/20 09/03/20 09/03/20 04:01 04:05 04:11 Temperature Pulse Rate 90 105 H 97 H Respiratory 21 20 19 Rate Blood Pressure 110/56 113/43 113/43 O2 Sat by Pulse 98 94 98 Oximetry 09/03/20 09/03/20 09/03/20 04:21 04:31 04:41 Temperature Pulse Rate 99 H 88 91 H Respiratory 14 16 15 Rate Blood Pressure 115/45 94/40 94/40 O2 Sat by Pulse 97 97 97 Oximetry 09/03/20 09/03/20 09/03/20 04:51 05:06 05:10 Temperature Pulse Rate 92 H 85 90 Respiratory 11 L 15 11 L Rate Blood Pressure 103/48 O2 Sat by Pulse 97 98 100 Oximetry 09/03/20 09/03/20 09/03/20 05:20 05:30 05:40 Temperature Pulse Rate 88 73 95 H Respiratory 15 18 20 Rate Blood Pressure 89/44 103/39 103/39 O2 Sat by Pulse 98 97 100 Oximetry 09/03/20 09/03/20 09/03/20 05:50 06:00 06:10 Temperature Pulse Rate 104 H 103 H 86 Respiratory 12 11 L 12 Rate Blood Pressure 125/38 124/50 124/50 O2 Sat by Pulse 97 98 97 Oximetry 09/03/20 09/03/20 09/03/20 06:20 06:30 06:40 Temperature Pulse Rate 95 H 85 91 H Respiratory 18 17 18 Rate Blood Pressure 121/55 143/72 143/72 O2 Sat by Pulse 88 94 93 Oximetry 09/03/20 09/03/20 09/03/20 06:50 07:00 07:10 Temperature Pulse Rate 87 99 H 95 H Respiratory 11 L 13 20 Rate Blood Pressure 134/60 140/62 140/62 O2 Sat by Pulse 94 96 97 Oximetry 09/03/20 09/03/20 09/03/20 07:20 07:30 07:40 Temperature Pulse Rate 106 H 102 H 114 H Respiratory 15 17 24 Rate Blood Pressure 139/62 136/60 136/60 O2 Sat by Pulse 96 97 77 L Oximetry 09/03/20 09/03/20 09/03/20 07:50 08:00 08:10 Temperature 97.5 F L Pulse Rate 100 H 96 H 96 H Respiratory 16 15 14 Rate Blood Pressure 153/72 127/71 127/71 O2 Sat by Pulse 91 88 92 Oximetry 09/03/20 09/03/20 09/03/20 08:15 08:20 08:30 Temperature Pulse Rate 94 H 97 H Respiratory 20 15 Rate Blood Pressure 126/66 126/66 O2 Sat by Pulse 96 95 97 Oximetry 09/03/20 09/03/20 09/03/20 08:40 08:50 09:00 Temperature Pulse Rate 96 H 90 94 H Respiratory 14 15 18 Rate Blood Pressure 119/61 124/70 124/70 O2 Sat by Pulse 100 93 93 Oximetry 09/03/20 09/03/20 09/03/20 09:10 09:20 09:30 Temperature Pulse Rate 106 H 101 H 101 H Respiratory 16 19 13 Rate Blood Pressure 118/79 128/65 138/68 O2 Sat by Pulse 94 95 97 Oximetry 09/03/20 09/03/20 09/03/20 09:39 09:40 09:50 Temperature Pulse Rate 114 H 96 H 99 H Respiratory 15 18 Rate Blood Pressure 138/68 138/68 139/69 O2 Sat by Pulse 97 96 Oximetry 09/03/20 09/03/20 09/03/20 10:00 10:10 10:20 Temperature Pulse Rate 96 H 102 H 102 H Respiratory 19 15 16 Rate Blood Pressure 126/45 126/45 124/61 O2 Sat by Pulse 97 93 93 Oximetry 09/03/20 09/03/20 09/03/20 10:30 10:40 10:50 Temperature Pulse Rate 84 87 94 H Respiratory 15 28 H 21 Rate Blood Pressure 128/55 128/55 112/52 O2 Sat by Pulse 99 62 L 97 Oximetry 09/03/20 09/03/20 09/03/20 11:00 11:10 11:20 Temperature Pulse Rate 86 87 91 H Respiratory 11 L 11 L 12 Rate Blood Pressure 117/58 117/58 106/41 O2 Sat by Pulse 98 99 99 Oximetry 09/03/20 09/03/20 09/03/20 11:30 11:40 11:50 Temperature Pulse Rate 79 89 81 Respiratory 9 L 13 13 Rate Blood Pressure 100/40 100/40 126/62 O2 Sat by Pulse 98 100 99 Oximetry 09/03/20 09/03/20 09/03/20 12:00 12:10 12:20 Temperature Pulse Rate 84 88 92 H Respiratory 15 13 17 Rate Blood Pressure 119/64 119/64 122/62 O2 Sat by Pulse 97 97 98 Oximetry 09/03/20 09/03/20 09/03/20 12:21 12:30 12:40 Temperature Pulse Rate 94 H 87 Respiratory 18 17 Rate Blood Pressure 111/77 111/77 O2 Sat by Pulse 95 92 86 Oximetry 09/03/20 09/03/20 12:50 12:55 Temperature Pulse Rate 81 79 Respiratory 20 Rate Blood Pressure 100/50 100/50 O2 Sat by Pulse 95 Oximetry Constitutional: appears uncomfortable, other (elderly obese male with mildly increased respiratory effort at rest on MVS) Eyes: non-icteric ENT: oropharynx moist Neck: supple, no lymphadenopathy, no JVD Effort: mildly labored Ascultation: Bilateral: diminished breath sounds, rhonchi Percussion: Bilateral: not dull Cardiovascular: regular rate and rhythm Gastrointestinal: normoactive bowel sounds, soft, non-tender, non-distended (protuberant) Integumentary: normal (in areas i examined; please see [facility] notes for full description) Extremities: no cyanosis, pink and warm, pulses normal, no ischemia or petechiae Neurologic: non-focal exam (grossly), pupils equal and round, other (lethargic) Psychiatric: anxious CBC and BMP: 09/04/20 07:25 09/04/20 07:25 ABG, PT/INR, D-dimer: ABG ABG pH 7.442 (7.320-7.450) 09/02/20 06:49 POC ABG pCO2 26.2 mmHg (32.0-48.0) L 09/02/20 06:49 POC ABG pO2 82.2 mmHg (83-108) L 09/02/20 06:49 POC ABG HCO3 17.5 09/02/20 06:49 PT/INR, D-dimer PT 15.5 Sec. (12.2-14.9) H 09/02/20 15:55 INR 1.23 (0.87-1.13) H 09/02/20 15:55 D-Dimer 2186.40 ng/mlDDU (0-234) H 09/02/20 15:55 Abnormal lab findings: Abnormal Labs 08/15/20 08/15/20 08/15/20 08:49 10:40 10:40 WBC RBC 2.96 L Hgb 9.0 L Hct 25.8 L MCV MCH MCHC 35 H RDW 16.2 H Lymph % (Auto) [place] % (Auto) Eos % (Auto) Lymph # (Auto) Seg Neutrophils % Seg Neutrophils # PT INR APTT D-Dimer POC ABG pCO2 POC ABG pO2 ABG Hemoglobin ABG Sodium ABG Potassium ABG Glucose Carboxyhemoglobin Sodium Potassium Chloride Carbon Dioxide BUN Creatinine 0.7 L Glucose 188 H POC Glucose 212 H Calcium 8.3 L Magnesium Ferritin AST Lactate Dehydrogenase C-Reactive Protein Total Protein Albumin Arterial Blood Glucose Arterial Blood Ionized Calcium Urine WBC (Auto) Coronavirus (PCR) 08/15/20 08/15/20 08/16/20 14:00 Unknown 04:43 WBC RBC 3.28 L Hgb 9.6 L Hct 29.3 L MCV MCH MCHC RDW 16.6 H Lymph % (Auto) [place] % (Auto) Eos % (Auto) 4.9 H Lymph # (Auto) Seg Neutrophils % Seg Neutrophils # PT INR APTT D-Dimer POC ABG pCO2 POC ABG pO2 ABG Hemoglobin ABG Sodium ABG Potassium ABG Glucose Carboxyhemoglobin Sodium Potassium Chloride Carbon Dioxide BUN 8 L Creatinine 0.6 L Glucose 115 H POC Glucose Calcium Magnesium Ferritin AST Lactate Dehydrogenase C-Reactive Protein Total Protein Albumin Arterial Blood Glucose Arterial Blood Ionized Calcium Urine WBC (Auto) 31.0 H Coronavirus (PCR) 08/16/20 08/18/20 08/20/20 04:43 15:17 07:12 WBC RBC Hgb 9.1 L Hct 27.2 L MCV MCH MCHC RDW Lymph % (Auto) [place] % (Auto) Eos % (Auto) Lymph # (Auto) Seg Neutrophils % Seg Neutrophils # PT INR APTT D-Dimer POC ABG pCO2 POC ABG pO2 ABG Hemoglobin ABG Sodium ABG Potassium ABG Glucose Carboxyhemoglobin Sodium 135 L Potassium Chloride 97.5 L Carbon Dioxide BUN Creatinine 0.5 L Glucose 153 H 135 H POC Glucose Calcium Magnesium Ferritin AST Lactate Dehydrogenase C-Reactive Protein Total Protein Albumin Arterial Blood Glucose Arterial Blood Ionized Calcium Urine WBC (Auto) Coronavirus (PCR) 08/20/20 08/20/20 08/20/20 07:12 07:12 08:07 WBC RBC Hgb Hct MCV MCH MCHC RDW Lymph % (Auto) [place] % (Auto) Eos % (Auto) Lymph # (Auto) Seg Neutrophils % Seg Neutrophils # PT INR 1.15 H APTT D-Dimer POC ABG pCO2 POC ABG pO2 ABG Hemoglobin ABG Sodium ABG Potassium ABG Glucose Carboxyhemoglobin Sodium Potassium Chloride Carbon Dioxide BUN Creatinine Glucose 113 H POC Glucose 108 H Calcium Magnesium Ferritin AST Lactate Dehydrogenase C-Reactive Protein Total Protein Albumin Arterial Blood Glucose Arterial Blood Ionized Calcium Urine WBC (Auto) Coronavirus (PCR) 08/20/20 08/20/20 08/21/20 16:32 22:34 07:42 WBC RBC Hgb Hct MCV MCH MCHC RDW Lymph % (Auto) [place] % (Auto) Eos % (Auto) Lymph # (Auto) Seg Neutrophils % Seg Neutrophils # PT INR APTT D-Dimer POC ABG pCO2 POC ABG pO2 ABG Hemoglobin ABG Sodium ABG Potassium ABG Glucose Carboxyhemoglobin Sodium Potassium Chloride Carbon Dioxide BUN Creatinine Glucose POC Glucose 107 H 139 H 115 H Calcium Magnesium Ferritin AST Lactate Dehydrogenase C-Reactive Protein Total Protein Albumin Arterial Blood Glucose Arterial Blood Ionized Calcium Urine WBC (Auto) Coronavirus (PCR) 08/21/20 08/21/20 08/21/20 08:14 08:14 11:31 WBC RBC 3.08 L Hgb 8.9 L Hct 27.0 L MCV MCH MCHC RDW 16.7 H Lymph % (Auto) [place] % (Auto) Eos % (Auto) Lymph # (Auto) Seg Neutrophils % Seg Neutrophils # PT INR APTT D-Dimer POC ABG pCO2 POC ABG pO2 ABG Hemoglobin ABG Sodium ABG Potassium ABG Glucose Carboxyhemoglobin Sodium 136 L Potassium Chloride Carbon Dioxide BUN Creatinine Glucose 129 H POC Glucose 132 H Calcium Magnesium Ferritin AST Lactate Dehydrogenase C-Reactive Protein Total Protein Albumin Arterial Blood Glucose Arterial Blood Ionized Calcium Urine WBC (Auto) Coronavirus (PCR) 08/24/20 08/25/20 08/26/20 10:57 18:39 11:57 WBC RBC Hgb Hct MCV MCH MCHC RDW Lymph % (Auto) [place] % (Auto) Eos % (Auto) Lymph # (Auto) Seg Neutrophils % Seg Neutrophils # PT INR APTT D-Dimer POC ABG pCO2 POC ABG pO2 ABG Hemoglobin ABG Sodium ABG Potassium ABG Glucose Carboxyhemoglobin Sodium Potassium Chloride Carbon Dioxide BUN Creatinine Glucose POC Glucose 126 H 120 H 127 H Calcium Magnesium Ferritin AST Lactate Dehydrogenase C-Reactive Protein Total Protein Albumin Arterial Blood Glucose Arterial Blood Ionized Calcium Urine WBC (Auto) Coronavirus (PCR) 08/26/20 08/26/20 08/28/20 18:44 23:31 19:34 WBC RBC 3.09 L Hgb 8.7 L Hct 25.5 L MCV 82 L MCH MCHC RDW 17.1 H Lymph % (Auto) [place] % (Auto) 9.1 H Eos % (Auto) Lymph # (Auto) 0.8 L Seg Neutrophils % 71.7 H Seg Neutrophils # PT INR APTT D-Dimer POC ABG pCO2 POC ABG pO2 ABG Hemoglobin ABG Sodium ABG Potassium ABG Glucose Carboxyhemoglobin Sodium Potassium Chloride Carbon Dioxide BUN Creatinine Glucose POC Glucose 125 H 115 H Calcium Magnesium Ferritin AST Lactate Dehydrogenase C-Reactive Protein Total Protein Albumin Arterial Blood Glucose Arterial Blood Ionized Calcium Urine WBC (Auto) Coronavirus (PCR) 08/28/20 08/28/20 08/29/20 19:34 22:16 08:06 WBC RBC Hgb Hct MCV MCH MCHC RDW Lymph % (Auto) [place] % (Auto) Eos % (Auto) Lymph # (Auto) Seg Neutrophils % Seg Neutrophils # PT INR APTT D-Dimer POC ABG pCO2 POC ABG pO2 ABG Hemoglobin ABG Sodium ABG Potassium ABG Glucose Carboxyhemoglobin Sodium 130 L Potassium 2.6 L* Chloride 96.4 L Carbon Dioxide BUN Creatinine Glucose 119 H POC Glucose 110 H 119 H Calcium 7.8 L Magnesium Ferritin AST Lactate Dehydrogenase C-Reactive Protein Total Protein Albumin Arterial Blood Glucose Arterial Blood Ionized Calcium Urine WBC (Auto) Coronavirus (PCR) 08/29/20 08/29/20 08/29/20 12:13 16:37 17:38 WBC RBC Hgb Hct MCV MCH MCHC RDW Lymph % (Auto) [place] % (Auto) Eos % (Auto) Lymph # (Auto) Seg Neutrophils % Seg Neutrophils # PT INR APTT D-Dimer POC ABG pCO2 POC ABG pO2 ABG Hemoglobin ABG Sodium ABG Potassium ABG Glucose Carboxyhemoglobin Sodium 133 L Potassium 3.0 L Chloride 97.9 L Carbon Dioxide 21 L BUN Creatinine Glucose 111 H POC Glucose 109 H 106 H Calcium 8.3 L Magnesium 1.30 L Ferritin AST Lactate Dehydrogenase C-Reactive Protein Total Protein Albumin Arterial Blood Glucose Arterial Blood Ionized Calcium Urine WBC (Auto) Coronavirus (PCR) 08/29/20 08/29/20 08/29/20 19:21 19:21 19:21 WBC RBC Hgb Hct MCV MCH MCHC RDW Lymph % (Auto) [place] % (Auto) Eos % (Auto) Lymph # (Auto) Seg Neutrophils % Seg Neutrophils # PT INR APTT D-Dimer 688.12 H POC ABG pCO2 POC ABG pO2 ABG Hemoglobin ABG Sodium ABG Potassium ABG Glucose Carboxyhemoglobin Sodium Potassium 3.1 L Chloride Carbon Dioxide BUN Creatinine Glucose POC Glucose Calcium Magnesium 1.50 L Ferritin 1476.0 H AST Lactate Dehydrogenase C-Reactive Protein Total Protein Albumin Arterial Blood Glucose Arterial Blood Ionized Calcium Urine WBC (Auto) Coronavirus (PCR) 08/29/20 08/29/20 08/31/20 19:21 Unknown 04:30 WBC RBC 3.12 L Hgb 9.1 L Hct 25.7 L MCV 83 L MCH MCHC 35 H RDW 17.4 H Lymph % (Auto) [place] % (Auto) 9.4 H Eos % (Auto) Lymph # (Auto) Seg Neutrophils % Seg Neutrophils # PT INR APTT D-Dimer POC ABG pCO2 POC ABG pO2 ABG Hemoglobin ABG Sodium ABG Potassium ABG Glucose Carboxyhemoglobin Sodium Potassium Chloride Carbon Dioxide BUN Creatinine Glucose POC Glucose Calcium Magnesium Ferritin AST Lactate Dehydrogenase 373 H C-Reactive Protein 18.30 H Total Protein Albumin Arterial Blood Glucose Arterial Blood Ionized Calcium Urine WBC (Auto) Coronavirus (PCR) Positive A 08/31/20 09/02/20 09/02/20 04:30 06:28 06:49 WBC RBC Hgb Hct MCV MCH MCHC RDW Lymph % (Auto) [place] % (Auto) Eos % (Auto) Lymph # (Auto) Seg Neutrophils % Seg Neutrophils # PT INR APTT D-Dimer POC ABG pCO2 26.2 L POC ABG pO2 82.2 L ABG Hemoglobin 10.1 L ABG Sodium 134.5 L ABG Potassium 3.2 L ABG Glucose 127 H Carboxyhemoglobin 0.3 L Sodium 134 L Potassium 3.4 L Chloride Carbon Dioxide BUN Creatinine Glucose 129 H POC Glucose 109 H Calcium 8.0 L Magnesium Ferritin AST Lactate Dehydrogenase C-Reactive Protein Total Protein Albumin Arterial Blood Glucose 127 H Arterial Blood Ionized Calcium 4.5 L Urine WBC (Auto) Coronavirus (PCR) 09/02/20 09/02/20 09/02/20 11:32 15:55 15:55 WBC RBC Hgb Hct MCV MCH MCHC RDW Lymph % (Auto) [place] % (Auto) Eos % (Auto) Lymph # (Auto) Seg Neutrophils % Seg Neutrophils # PT 15.5 H INR 1.23 H APTT 50.2 H D-Dimer 2186.40 H POC ABG pCO2 POC ABG pO2 ABG Hemoglobin ABG Sodium ABG Potassium ABG Glucose Carboxyhemoglobin Sodium Potassium Chloride Carbon Dioxide 21 L BUN 30 H Creatinine 1.6 H Glucose 125 H POC Glucose 112 H Calcium 7.8 L Magnesium Ferritin AST Lactate Dehydrogenase C-Reactive Protein Total Protein Albumin Arterial Blood Glucose Arterial Blood Ionized Calcium Urine WBC (Auto) Coronavirus (PCR) 09/02/20 09/02/20 09/02/20 15:55 15:55 17:34 WBC 11.2 H RBC 2.94 L Hgb 8.1 L Hct 24.3 L MCV 83 L MCH 27 L MCHC RDW 17.7 H Lymph % (Auto) 12.7 L [place] % (Auto) Eos % (Auto) Lymph # (Auto) Seg Neutrophils % 82.5 H Seg Neutrophils # 9.3 H PT INR APTT D-Dimer POC ABG pCO2 POC ABG pO2 ABG Hemoglobin ABG Sodium ABG Potassium ABG Glucose Carboxyhemoglobin Sodium Potassium Chloride Carbon Dioxide BUN Creatinine Glucose POC Glucose 127 H Calcium Magnesium Ferritin 1892.0 H AST Lactate Dehydrogenase C-Reactive Protein Total Protein Albumin Arterial Blood Glucose Arterial Blood Ionized Calcium Urine WBC (Auto) Coronavirus (PCR) 09/03/20 07:13 WBC RBC Hgb Hct MCV MCH MCHC RDW Lymph % (Auto) [place] % (Auto) Eos % (Auto) Lymph # (Auto) Seg Neutrophils % Seg Neutrophils # PT INR APTT D-Dimer POC ABG pCO2 POC ABG pO2 ABG Hemoglobin ABG Sodium ABG Potassium ABG Glucose Carboxyhemoglobin Sodium Potassium 3.2 L Chloride 109.7 H Carbon Dioxide BUN 24 H Creatinine Glucose 142 H POC Glucose Calcium 8.2 L Magnesium Ferritin AST 75 H Lactate Dehydrogenase C-Reactive Protein Total Protein 5.8 L Albumin 2.7 L Arterial Blood Glucose Arterial Blood Ionized Calcium Urine WBC (Auto) Coronavirus (PCR) Chest x-ray: other (none today) Allied health notes reviewed: nursing
[2020-09-03] MEDS: HEPARIN/ 0.45% NACL DRIP 25,000 UNIT/500 ML BAG IV SCH (13:50)
[2020-09-03] MEDS: POTASSIUM CHLORIDE 20 MEQ PACKET FEEDTUBE SCH ×2 (13:51→17:22)
[2020-09-03] MEDS: AZTREONAM/NS 1 GM/50 ML 1 GM/50 ML VIAL IV SCH ×2 (15:06→21:38)
[2020-09-03] MEDS: REMDESIVIR 100 MG in SODIUM CHLORIDE 0.9% 250ML 250 ML IV SCH (20:58)
[2020-09-03] MEDS: SODIUM CHLORIDE 0.9% 50 ML IVPB IV SCH (20:58)
[2020-09-03] MEDS: ZINC SULFATE 220 MG CAP PO SCH (21:49)
[2020-09-03] MEDS: ASCORBIC ACID 500 MG TAB PO SCH (21:49)
[2020-09-04] MEDS: AZTREONAM/NS 1 GM/50 ML 1 GM/50 ML VIAL IV SCH ×3 (05:43→22:47)
--- NOTE | 2020-09-04 07:15 | Progress Note ---
Assessment and Plan Assessment and Plan Assessment and plan: Patient is anxious to go home. Informed him that we are waiting for subacute rehab/SNF placement formalities Patient had lucas PCR test done today in preparation to placement to alf versus subacute Covid test came back positive --[id number]; 08/29/2020 --Sepsis secondary to UTI/febrile illness T-max 101 F Antipyretics, continue Levaquin, Contact and droplet isolation Inflammatory markers, ID consult if she has already seen the patient Blood cultures , urine cultures negative to date plenty oral fluids, supportive care -- Necrosis of surgical wound h/o TMA on 07/30 he presented with increased bleeding from the wound Vascular consulted for further mx -- Peripheral vascular disease of lower extremity LLE revascularization done on 07/18 and 07/24 Continue antiplatelets and statin -- HTN (hypertension) continue antihypertensives --CAD (coronary artery disease) On Plavix, statin -- CHF (congestive heart failure), chronic diastolic and compensated 2D echo showed preserved EF We will hold the Lasix for now --Urinary retention, status post Renae placed on last admission Likely from BPH, urology f/u outpt --Sepsis secondary to UTI, started on levaquin --Obesity; BMI 33.6, patient needs weight reduction when medically stable -- DVT prophylaxis;On Heparin Subjective Date of service: 09/03/20 Principal diagnosis: Ac hypoxemic resp failure; COVID-19; Pneumonia; Sepsis; PVD; L. foot ulcer Objective - Constitutional Vitals: Vital Signs - 12hr 09/03/20 09/03/20 09/03/20 19:20 19:30 19:40 Temperature Pulse Rate 76 88 77 Pulse Rate [ From Monitor] Respiratory 15 17 21 Rate Blood Pressure 84/40 71/47 71/47 O2 Sat by Pulse 95 93 92 Oximetry 09/03/20 09/03/20 09/03/20 19:50 20:00 20:10 Temperature 97.4 F L Pulse Rate 76 99 H 88 Pulse Rate [ 71 From Monitor] Respiratory 25 H 16 15 Rate Blood Pressure 123/54 123/54 119/56 O2 Sat by Pulse 92 92 80 L Oximetry 09/03/20 09/03/20 09/03/20 20:20 20:30 20:40 Temperature Pulse Rate 79 81 81 Pulse Rate [ From Monitor] Respiratory 17 16 12 Rate Blood Pressure 127/59 123/60 123/60 O2 Sat by Pulse 95 97 95 Oximetry 09/03/20 09/03/20 09/03/20 20:50 21:00 21:10 Temperature Pulse Rate 85 83 82 Pulse Rate [ From Monitor] Respiratory 16 18 21 Rate Blood Pressure 103/44 124/62 124/62 O2 Sat by Pulse 96 100 91 Oximetry 09/03/20 09/03/20 09/03/20 21:20 21:26 21:30 Temperature Pulse Rate 76 100 H 87 Pulse Rate [ From Monitor] Respiratory 22 21 19 Rate Blood Pressure 138/43 138/43 138/43 O2 Sat by Pulse 85 93 95 Oximetry 09/03/20 09/03/20 09/03/20 21:40 21:50 22:00 Temperature Pulse Rate 84 96 H 84 Pulse Rate [ From Monitor] Respiratory 16 14 18 Rate Blood Pressure 123/55 117/53 110/48 O2 Sat by Pulse 97 97 99 Oximetry 09/03/20 09/03/20 09/03/20 22:10 22:20 22:30 Temperature Pulse Rate 90 84 92 H Pulse Rate [ From Monitor] Respiratory 17 17 29 H Rate Blood Pressure 110/48 92/63 92/63 O2 Sat by Pulse 99 99 67 L Oximetry 09/03/20 09/03/20 09/03/20 22:40 22:50 23:00 Temperature Pulse Rate 91 H 90 106 H Pulse Rate [ From Monitor] Respiratory 12 13 13 Rate Blood Pressure 171/78 92/63 135/66 O2 Sat by Pulse 94 94 95 Oximetry 09/03/20 09/03/20 09/03/20 23:10 23:20 23:30 Temperature Pulse Rate 99 H 86 85 Pulse Rate [ From Monitor] Respiratory 13 14 17 Rate Blood Pressure 135/66 133/61 133/61 O2 Sat by Pulse 96 96 96 Oximetry 09/03/20 09/03/20 09/03/20 23:40 23:48 23:50 Temperature Pulse Rate 89 90 95 H Pulse Rate [ From Monitor] Respiratory 19 12 22 Rate Blood Pressure 106/67 106/67 106/67 O2 Sat by Pulse 96 98 97 Oximetry 09/03/20 09/04/20 09/04/20 23:54 00:00 00:03 Temperature 97.8 F Pulse Rate 113 H 101 H 95 H Pulse Rate [ 98 H From Monitor] Respiratory 28 H 14 15 Rate Blood Pressure 120/60 106/67 129/60 O2 Sat by Pulse 95 98 97 Oximetry 09/04/20 09/04/20 09/04/20 00:10 00:20 00:30 Temperature Pulse Rate 92 H 91 H 96 H Pulse Rate [ From Monitor] Respiratory 16 15 14 Rate Blood Pressure 129/60 129/60 135/58 O2 Sat by Pulse 96 98 97 Oximetry 09/04/20 09/04/20 09/04/20 00:40 00:50 01:00 Temperature Pulse Rate 94 H 105 H 92 H Pulse Rate [ From Monitor] Respiratory 17 18 17 Rate Blood Pressure 135/58 212/111 144/62 O2 Sat by Pulse 91 95 99 Oximetry 09/04/20 09/04/20 09/04/20 01:10 01:20 01:30 Temperature Pulse Rate 93 H 105 H 92 H Pulse Rate [ From Monitor] Respiratory 16 19 14 Rate Blood Pressure 144/62 144/62 120/61 O2 Sat by Pulse 97 90 97 Oximetry 09/04/20 09/04/20 09/04/20 01:40 01:50 02:01 Temperature Pulse Rate 100 H 91 H 91 H Pulse Rate [ From Monitor] Respiratory 15 20 13 Rate Blood Pressure 120/61 136/63 143/60 O2 Sat by Pulse 97 92 93 Oximetry 09/04/20 09/04/20 09/04/20 02:11 02:21 02:31 Temperature Pulse Rate 88 96 H 90 Pulse Rate [ From Monitor] Respiratory 15 19 17 Rate Blood Pressure 136/63 139/55 129/48 O2 Sat by Pulse 97 95 99 Oximetry 09/04/20 09/04/20 09/04/20 02:41 02:51 03:01 Temperature Pulse Rate 90 93 H 89 Pulse Rate [ From Monitor] Respiratory 22 19 17 Rate Blood Pressure 129/48 134/78 134/78 O2 Sat by Pulse 95 97 97 Oximetry 09/04/20 09/04/20 09/04/20 03:11 03:21 03:31 Temperature Pulse Rate 92 H 91 H 89 Pulse Rate [ From Monitor] Respiratory 25 H 20 16 Rate Blood Pressure 124/80 124/80 124/80 O2 Sat by Pulse 97 96 97 Oximetry 09/04/20 09/04/20 09/04/20 03:41 03:51 03:52 Temperature 97.5 F L Pulse Rate 93 H 91 H Pulse Rate [ From Monitor] Respiratory 15 18 Rate Blood Pressure 56/25 56/25 O2 Sat by Pulse 98 97 Oximetry 09/04/20 09/04/20 09/04/20 04:00 04:01 04:11 Temperature Pulse Rate 97 H 92 H Pulse Rate [ 93 H From Monitor] Respiratory 25 H 16 21 Rate Blood Pressure 56/25 151/73 O2 Sat by Pulse 94 95 93 Oximetry 09/04/20 09/04/20 09/04/20 04:21 04:31 04:41 Temperature Pulse Rate 88 88 93 H Pulse Rate [ From Monitor] Respiratory 13 15 15 Rate Blood Pressure 134/76 132/68 132/68 O2 Sat by Pulse 98 98 98 Oximetry 09/04/20 09/04/20 09/04/20 04:51 05:01 05:11 Temperature Pulse Rate 87 86 98 H Pulse Rate [ From Monitor] Respiratory 14 16 16 Rate Blood Pressure 149/62 142/76 142/76 O2 Sat by Pulse 97 98 97 Oximetry 09/04/20 09/04/20 09/04/20 05:21 05:31 05:41 Temperature Pulse Rate 98 H 98 H 94 H Pulse Rate [ From Monitor] Respiratory 15 24 16 Rate Blood Pressure 155/68 150/69 150/69 O2 Sat by Pulse 98 97 97 Oximetry 09/04/20 09/04/20 09/04/20 05:51 06:00 06:11 Temperature Pulse Rate 100 H 99 H 101 H Pulse Rate [ From Monitor] Respiratory 18 19 18 Rate Blood Pressure 146/68 146/68 148/63 O2 Sat by Pulse 93 87 Oximetry General appearance: Present: no acute distress, well-nourished - EENT Eyes: PERRL, EOM intact ENT: hearing intact, clear oral mucosa Ears: bilateral: normal - Neck Neck: supple, normal ROM - Respiratory Respiratory effort: normal Respiratory: bilateral: CTA - Breasts Breasts: normal - Cardiovascular Rhythm: regular Heart Sounds: Present: S1 & S2. Absent: gallop, rub Extremities: pulses intact, No edema, normal color, Full ROM - Gastrointestinal General gastrointestinal: Present: soft, non-tender, non-distended, normal bowel sounds - Genitourinary Male genitourinary: normal - Integumentary Integumentary: clear, warm, dry - Musculoskeletal Musculoskeletal: 1, strength equal bilaterally - Neurologic Neurologic: moves all extremities - Psychiatric Psychiatric: memory intact, appropriate mood/affect, intact judgment & insight - Labs CBC & Chem 7: 09/02/20 15:55 09/03/20 07:13 Labs: Abnormal lab results 09/03/20 09/03/20 09/03/20 Range/Units 07:13 16:40 23:40 Heparin Anti-Xa Level 0.88 H (0.3-0.7) U.I./ml Potassium 3.2 L (3.6-5.0) mmol/L Chloride 109.7 H (98-107) mmol/L BUN 24 H (9-20) mg/dL Glucose 142 H (75-100) mg/dL POC Glucose 220 H (70-105) mg/dL Calcium 8.2 L (8.4-10.2) mg/dL AST 75 H (5-40) units/L Total Protein 5.8 L (6.3-8.2) g/dL Albumin 2.7 L (3.9-5) g/dL
[2020-09-04 08:30] LABS: Hematocrit 27.9 % (35.5-45.6)
[2020-09-04 08:45] LABS: Alanine Aminotransferase 33 units/L (7-56); Albumin 2.6 g/dL (3.9-5); BUN/Creatinine Ratio 22; Blood Urea Nitrogen 20 mg/dL (9-20); Calcium 8.6 mg/dL (8.4-10.2); Hemolysis Index 0
[2020-09-04] MEDS: HEPARIN/ 0.45% NACL DRIP 25,000 UNIT/500 ML BAG IV SCH (09:26)
[2020-09-04] MEDS: dexAMETHasone 4 MG/ML VIAL IV SCH (09:26)
--- NOTE | 2020-09-04 14:07 | Progress Note ---
Assessment and Plan Cultures: 08/16/2020 SARS CoV2 PCR: Negative 08/29/2020 SARS CoV2 PCR: Positive 08/15/2020 urine culture: No growth 08/24/2020 blood culture: No growth 08/28/2020 blood culture: No growth 08/28/2020 urine culture: No growth A/P: 64-year-old male with hypertension, coronary artery disease, peripheral vascular disease, gout, alcohol dependence was admitted to the hospital on 08/15/2020 due to bleeding from his left foot which is a site of a previous surgery. Patient was noted to have wound dehiscence complicated by wound necrosis. Was seen by vascular surgery. He underwent a TMA. Due to fever, patient was receiving IV levofloxacin for UTI. COVID-19 test done on 08/29/2020 for placement reasons came back positive. Patient has been having intermittent fevers since 08/28/2020. 09/02/2020, a code MET was called due to tachypnea and labored respirations: #Shock: Probably from severe COVID-19. #Bilateral pneumonia: Secondary to COVID-19. Patient with severe hypoxia, elevated inflammatory markers. Recently had completed levofloxacin. #Acute hypoxic respiratory failure: Requiring BiPAP/HFNC. #Peripheral vascular disease, wound dehiscence and necrosis: underwent TMA by vascular surgery #Coronary artery disease, CHF Recs: -Agree with IV/PO Dexamethasone 6 mg daily x 10 days -Remdesivir ordered. Day 3 of 5 -Continue empiric antibiotics (Aztreonam, Levofloxacin, Vancomycin). Procal elevated. Continue for now. -prophylactic anticoagulation based on d-dimer per hospital protocol -trend ferritin, LDH, d-dimer, CRP every 2-3 days for risk stratification and to assess disease progression Tara Stockton MD [facility], [place], [facility]ated [facility] ([facility]) O: [phone] F: [phone] Subjective Date of service: 09/04/20 Principal diagnosis: Ac hypoxemic resp failure; COVID-19; Pneumonia; Sepsis; PVD; L. foot ulcer Interval history: Afebrile over last 24 hours, no acute change. Currently on BiPAP. Objective - Exam Narrative Exam: Physical Exam (reviewed in chart to minimize risk of transmission) Constitutional: deferred Head, Ears, Nose: deferred Eyes: deferred Neck: deferred Oral: deferred Cardiovascular: deferred Respiratory: deferred GI: deferred Musculoskeletal: deferred Skin: deferred Hem/Lymphatic: deferred Psych: deferred Neurological: deferred - Constitutional Vitals: Vital Signs Temp Pulse Resp BP Pulse Ox 97.5 F L 120 H 17 165/87 91 09/04/20 03:52 09/04/20 12:01 09/04/20 12:11 09/04/20 12:11 09/04/20 12:11 Temperature -Last 24 Hours Temperature 97.5 F Temperature 97.8 F Temperature 97.4 F Temperature 97.3 F - Labs CBC & Chem 7: 09/04/20 07:25 09/04/20 07:25 Labs: Abnormal lab results 09/03/20 09/03/20 09/04/20 Range/Units 16:40 23:40 07:25 Hgb 9.0 L (11.8-15.2) gm/dl Hct 27.9 L (35.5-45.6) % Heparin Anti-Xa Level 0.88 H (0.3-0.7) U.I./ml Sodium (137-145) mmol/L Chloride (98-107) mmol/L Glucose (75-100) mg/dL POC Glucose 220 H (70-105) mg/dL AST (5-40) units/L Alkaline Phosphatase (35-129) units/L Total Protein (6.3-8.2) g/dL Albumin (3.9-5) g/dL 09/04/20 09/04/20 Range/Units 07:25 11:57 Hgb (11.8-15.2) gm/dl Hct (35.5-45.6) % Heparin Anti-Xa Level (0.3-0.7) U.I./ml Sodium 148 H (137-145) mmol/L Chloride 116.9 H (98-107) mmol/L Glucose 129 H (75-100) mg/dL POC Glucose 113 H (70-105) mg/dL AST 93 H (5-40) units/L Alkaline Phosphatase 134 H (35-129) units/L Total Protein 6.0 L (6.3-8.2) g/dL Albumin 2.6 L (3.9-5) g/dL
--- NOTE | 2020-09-04 15:30 | Progress Note ---
Assessment and Plan Acute hypoxemic respiratory failure, on mechanical ventilatory support. COVID-19 infection. Bilateral pneumonia versus pulmonary edema. Severe sepsis with shock. Peripheral vascular disease. Anemia that is microcytic. History of alcohol abuse. Acute encephalopathy. History of obesity. History of coronary artery disease. History of gout. Hyperlipidemia. Hypertension, now hypotensive. Left lower extremity / left foot ulcer. - continue attempts to transition to qhs only BIPAP - watch closely with shorter leash to intubate if decompensates - repeat CXR in am - continue aspiration precautions - continue to wean supplemental oxygen for target O2 sat's > 92% acutely - bronchodilators with pulmonary hygiene per RT - wean per pulmonary driven protocols otherwise - avoid nephrotoxins, renally dose all medications - accuchecks with glycemic control per SSI (While critically ill target blood glucose of 140-180 mg/dL; avoid hypoglycemia) - avoid benzodiazepine's, reduce the possibility of delirium - complete AB's per ID rec's - prn analgesia per CPOT score - Maintenance of sleep-wake cycle, avoid delirium - enteral nutritional support at goal rate as tolerated - G.I. & VTE prophylaxis - PT/OT/ROM exercises - continue mobility protocols for pressure ulcer prophylaxis - Monitor hemodynamics closely - continue other care per attending / other consultants - discharge planning ongoing concurrently COVID SPECIFIC INTERVENTIONS - complete Remdesivir as per ID/Pulmonary developed protocols (#3 of 5) - systemic steroids for severe COVID-19 infection empirically - follow repeat COVID tests results - zinc and vitamin C supplementation - Monitor inflammatory markers per facility protocol - ferritin, Ddimer, CRP - therapeutic anticoagulation per system Protocol based on d-dimer and clinical considerations - Continue contact and airborne isolation .... Re-evaluate in am & prn CONDITION: CRITICAL PROGNOSIS: GUARDED CODE STATUS: FULL CODE The high probability of a clinically significant, sudden or life-threatening deterioration of the [respiratory, cardiovascular, renal & neurologic] system(s) required my full and direct attention, intervention and personal management. The aggregate critical care time was [34] minutes without overlap. Time includes spent on; [x] Data Review and interpretation [x] Patient assessment and monitoring of vital signs [x] Documentation [x] Medication orders and management Subjective Date of service: 09/04/20 Principal diagnosis: Ac hypoxemic resp failure; COVID-19; Pneumonia; Sepsis; PVD; L. foot ulcer Interval history: Patient is seen today for: Acute hypoxemic respiratory failure; COVID-19 infection; Bilateral pneumonia versus pulmonary edema; Severe sepsis with shock; Peripheral vascular disease; Acute encephalopathy; Left lower extremity / left foot ulcer. Seen and examined at bedside; 24hour events reviewed; nursing and respiratory care staff consulted; no adverse overnight events reported to me; resting peacefully in bed; remains on BIPAP; no emesis or overt aspiration; no high grade fevers Objective Vital Signs - 12hr 09/04/20 09/04/20 09/04/20 03:31 03:41 03:51 Temperature Pulse Rate 89 93 H 91 H Pulse Rate [ From Monitor] Respiratory 16 15 18 Rate Blood Pressure 124/80 56/25 56/25 O2 Sat by Pulse 97 98 97 Oximetry 09/04/20 09/04/20 09/04/20 03:52 04:00 04:01 Temperature 97.5 F L Pulse Rate 97 H Pulse Rate [ 93 H From Monitor] Respiratory 25 H 16 Rate Blood Pressure 56/25 O2 Sat by Pulse 94 95 Oximetry 09/04/20 09/04/20 09/04/20 04:11 04:21 04:31 Temperature Pulse Rate 92 H 88 88 Pulse Rate [ From Monitor] Respiratory 21 13 15 Rate Blood Pressure 151/73 134/76 132/68 O2 Sat by Pulse 93 98 98 Oximetry 09/04/20 09/04/20 09/04/20 04:41 04:51 05:01 Temperature Pulse Rate 93 H 87 86 Pulse Rate [ From Monitor] Respiratory 15 14 16 Rate Blood Pressure 132/68 149/62 142/76 O2 Sat by Pulse 98 97 98 Oximetry 09/04/20 09/04/20 09/04/20 05:11 05:21 05:31 Temperature Pulse Rate 98 H 98 H 98 H Pulse Rate [ From Monitor] Respiratory 16 15 24 Rate Blood Pressure 142/76 155/68 150/69 O2 Sat by Pulse 97 98 97 Oximetry 09/04/20 09/04/20 09/04/20 05:41 05:51 06:00 Temperature Pulse Rate 94 H 100 H 99 H Pulse Rate [ From Monitor] Respiratory 16 18 19 Rate Blood Pressure 150/69 146/68 146/68 O2 Sat by Pulse 97 93 Oximetry 09/04/20 09/04/20 09/04/20 06:11 06:21 06:31 Temperature Pulse Rate 101 H 96 H 96 H Pulse Rate [ From Monitor] Respiratory 18 18 20 Rate Blood Pressure 148/63 152/66 154/69 O2 Sat by Pulse 87 95 Oximetry 09/04/20 09/04/20 09/04/20 06:41 06:51 07:01 Temperature Pulse Rate 103 H 102 H 98 H Pulse Rate [ From Monitor] Respiratory 17 21 20 Rate Blood Pressure 154/69 129/60 157/62 O2 Sat by Pulse 93 93 Oximetry 09/04/20 09/04/20 09/04/20 07:11 07:21 07:31 Temperature Pulse Rate 98 H 93 H 99 H Pulse Rate [ From Monitor] Respiratory 19 14 13 Rate Blood Pressure 157/62 138/71 137/72 O2 Sat by Pulse 96 92 92 Oximetry 09/04/20 09/04/20 09/04/20 07:41 07:48 07:51 Temperature Pulse Rate 106 H 101 H 98 H Pulse Rate [ From Monitor] Respiratory 12 18 22 Rate Blood Pressure 137/72 148/63 148/74 O2 Sat by Pulse 95 95 92 Oximetry 09/04/20 09/04/20 09/04/20 08:00 08:11 08:21 Temperature Pulse Rate 100 H 94 H 95 H Pulse Rate [ From Monitor] Respiratory 15 17 18 Rate Blood Pressure 145/65 145/65 147/63 O2 Sat by Pulse 94 Oximetry 09/04/20 09/04/20 09/04/20 08:31 08:41 08:51 Temperature Pulse Rate 88 94 H 101 H Pulse Rate [ From Monitor] Respiratory 17 16 15 Rate Blood Pressure 160/68 160/68 161/82 O2 Sat by Pulse Oximetry 09/04/20 09/04/20 09/04/20 09:01 09:11 09:21 Temperature Pulse Rate 106 H 182 H 114 H Pulse Rate [ From Monitor] Respiratory 23 17 23 Rate Blood Pressure 170/77 170/77 170/72 O2 Sat by Pulse 57 L 92 91 Oximetry 09/04/20 09/04/20 09/04/20 09:31 09:41 09:51 Temperature Pulse Rate 112 H 107 H 107 H Pulse Rate [ From Monitor] Respiratory 20 19 22 Rate Blood Pressure 173/76 173/76 151/81 O2 Sat by Pulse 87 92 93 Oximetry 09/04/20 09/04/20 09/04/20 10:01 10:11 10:21 Temperature Pulse Rate 112 H 114 H 106 H Pulse Rate [ From Monitor] Respiratory 22 23 23 Rate Blood Pressure 153/70 153/70 168/80 O2 Sat by Pulse 94 89 96 Oximetry 09/04/20 09/04/20 09/04/20 10:31 10:41 10:51 Temperature Pulse Rate 109 H 116 H 107 H Pulse Rate [ From Monitor] Respiratory 17 13 16 Rate Blood Pressure 154/76 154/76 149/51 O2 Sat by Pulse 96 97 97 Oximetry 09/04/20 09/04/20 09/04/20 11:01 11:11 11:21 Temperature Pulse Rate 100 H 106 H 104 H Pulse Rate [ From Monitor] Respiratory 15 14 15 Rate Blood Pressure 139/58 139/58 158/66 O2 Sat by Pulse 94 92 Oximetry 09/04/20 09/04/20 09/04/20 11:27 11:31 11:41 Temperature Pulse Rate 101 H 118 H 112 H Pulse Rate [ From Monitor] Respiratory 18 32 H 18 Rate Blood Pressure 148/63 158/66 183/79 O2 Sat by Pulse 95 93 Oximetry 09/04/20 09/04/20 09/04/20 11:50 12:00 12:01 Temperature Pulse Rate 120 H Pulse Rate [ From Monitor] Respiratory 30 H 21 Rate Blood Pressure 152/69 152/69 O2 Sat by Pulse 72 L 94 94 Oximetry 09/04/20 12:11 Temperature Pulse Rate Pulse Rate [ From Monitor] Respiratory 17 Rate Blood Pressure 165/87 O2 Sat by Pulse 91 Oximetry Constitutional: appears uncomfortable, other (elderly obese male with mildly increased respiratory effort at rest on MVS) Eyes: non-icteric ENT: oropharynx moist Neck: supple, no lymphadenopathy, no JVD Effort: mildly labored Ascultation: Bilateral: diminished breath sounds, rhonchi Percussion: Bilateral: not dull Cardiovascular: regular rate and rhythm Gastrointestinal: normoactive bowel sounds, soft, non-tender, non-distended (protuberant) Integumentary: normal (in areas i examined; please see [facility] notes for full description) Extremities: no cyanosis, pink and warm, pulses normal, no ischemia or petechiae Neurologic: non-focal exam (grossly), pupils equal and round, other (lethargic) Psychiatric: other (unable to assess) CBC and BMP: 09/04/20 07:25 09/05/20 07:17 ABG, PT/INR, D-dimer: ABG ABG pH 7.442 (7.320-7.450) 09/02/20 06:49 POC ABG pCO2 26.2 mmHg (32.0-48.0) L 09/02/20 06:49 POC ABG pO2 82.2 mmHg (83-108) L 09/02/20 06:49 POC ABG HCO3 17.5 09/02/20 06:49 PT/INR, D-dimer PT 15.5 Sec. (12.2-14.9) H 09/02/20 15:55 INR 1.23 (0.87-1.13) H 09/02/20 15:55 D-Dimer 2186.40 ng/mlDDU (0-234) H 09/02/20 15:55 Abnormal lab findings: Abnormal Labs 08/15/20 08/15/20 08/15/20 08:49 10:40 10:40 WBC RBC 2.96 L Hgb 9.0 L Hct 25.8 L MCV MCH MCHC 35 H RDW 16.2 H Lymph % (Auto) Porter % (Auto) Eos % (Auto) Lymph # (Auto) Seg Neutrophils % Seg Neutrophils # PT INR APTT D-Dimer Heparin Anti-Xa Level POC ABG pCO2 POC ABG pO2 ABG Hemoglobin ABG Sodium ABG Potassium ABG Glucose Carboxyhemoglobin Sodium Potassium Chloride Carbon Dioxide BUN Creatinine 0.7 L Glucose 188 H POC Glucose 212 H Calcium 8.3 L Magnesium Ferritin AST Alkaline Phosphatase Lactate Dehydrogenase C-Reactive Protein Total Protein Albumin Arterial Blood Glucose Arterial Blood Ionized Calcium Urine WBC (Auto) Coronavirus (PCR) 08/15/20 08/15/20 08/16/20 14:00 Unknown 04:43 WBC RBC 3.28 L Hgb 9.6 L Hct 29.3 L MCV MCH MCHC RDW 16.6 H Lymph % (Auto) Porter % (Auto) Eos % (Auto) 4.9 H Lymph # (Auto) Seg Neutrophils % Seg Neutrophils # PT INR APTT D-Dimer Heparin Anti-Xa Level POC ABG pCO2 POC ABG pO2 ABG Hemoglobin ABG Sodium ABG Potassium ABG Glucose Carboxyhemoglobin Sodium Potassium Chloride Carbon Dioxide BUN 8 L Creatinine 0.6 L Glucose 115 H POC Glucose Calcium Magnesium Ferritin AST Alkaline Phosphatase Lactate Dehydrogenase C-Reactive Protein Total Protein Albumin Arterial Blood Glucose Arterial Blood Ionized Calcium Urine WBC (Auto) 31.0 H Coronavirus (PCR) 08/16/20 08/18/20 08/20/20 04:43 15:17 07:12 WBC RBC Hgb 9.1 L Hct 27.2 L MCV MCH MCHC RDW Lymph % (Auto) Porter % (Auto) Eos % (Auto) Lymph # (Auto) Seg Neutrophils % Seg Neutrophils # PT INR APTT D-Dimer Heparin Anti-Xa Level POC ABG pCO2 POC ABG pO2 ABG Hemoglobin ABG Sodium ABG Potassium ABG Glucose Carboxyhemoglobin Sodium 135 L Potassium Chloride 97.5 L Carbon Dioxide BUN Creatinine 0.5 L Glucose 153 H 135 H POC Glucose Calcium Magnesium Ferritin AST Alkaline Phosphatase Lactate Dehydrogenase C-Reactive Protein Total Protein Albumin Arterial Blood Glucose Arterial Blood Ionized Calcium Urine WBC (Auto) Coronavirus (PCR) 08/20/20 08/20/20 08/20/20 07:12 07:12 08:07 WBC RBC Hgb Hct MCV MCH MCHC RDW Lymph % (Auto) Porter % (Auto) Eos % (Auto) Lymph # (Auto) Seg Neutrophils % Seg Neutrophils # PT INR 1.15 H APTT D-Dimer Heparin Anti-Xa Level POC ABG pCO2 POC ABG pO2 ABG Hemoglobin ABG Sodium ABG Potassium ABG Glucose Carboxyhemoglobin Sodium Potassium Chloride Carbon Dioxide BUN Creatinine Glucose 113 H POC Glucose 108 H Calcium Magnesium Ferritin AST Alkaline Phosphatase Lactate Dehydrogenase C-Reactive Protein Total Protein Albumin Arterial Blood Glucose Arterial Blood Ionized Calcium Urine WBC (Auto) Coronavirus (PCR) 08/20/20 08/20/20 08/21/20 16:32 22:34 07:42 WBC RBC Hgb Hct MCV MCH MCHC RDW Lymph % (Auto) Porter % (Auto) Eos % (Auto) Lymph # (Auto) Seg Neutrophils % Seg Neutrophils # PT INR APTT D-Dimer Heparin Anti-Xa Level POC ABG pCO2 POC ABG pO2 ABG Hemoglobin ABG Sodium ABG Potassium ABG Glucose Carboxyhemoglobin Sodium Potassium Chloride Carbon Dioxide BUN Creatinine Glucose POC Glucose 107 H 139 H 115 H Calcium Magnesium Ferritin AST Alkaline Phosphatase Lactate Dehydrogenase C-Reactive Protein Total Protein Albumin Arterial Blood Glucose Arterial Blood Ionized Calcium Urine WBC (Auto) Coronavirus (PCR) 12/29/20 12/29/20 12/29/20 08:14 08:14 11:31 WBC RBC 3.08 L Hgb 8.9 L Hct 27.0 L MCV MCH MCHC RDW 16.7 H Lymph % (Auto) Porter % (Auto) Eos % (Auto) Lymph # (Auto) Seg Neutrophils % Seg Neutrophils # PT INR APTT D-Dimer Heparin Anti-Xa Level POC ABG pCO2 POC ABG pO2 ABG Hemoglobin ABG Sodium ABG Potassium ABG Glucose Carboxyhemoglobin Sodium 136 L Potassium Chloride Carbon Dioxide BUN Creatinine Glucose 129 H POC Glucose 132 H Calcium Magnesium Ferritin AST Alkaline Phosphatase Lactate Dehydrogenase C-Reactive Protein Total Protein Albumin Arterial Blood Glucose Arterial Blood Ionized Calcium Urine WBC (Auto) Coronavirus (PCR) 08/24/20 08/25/20 08/26/20 10:57 18:39 11:57 WBC RBC Hgb Hct MCV MCH MCHC RDW Lymph % (Auto) Porter % (Auto) Eos % (Auto) Lymph # (Auto) Seg Neutrophils % Seg Neutrophils # PT INR APTT D-Dimer Heparin Anti-Xa Level POC ABG pCO2 POC ABG pO2 ABG Hemoglobin ABG Sodium ABG Potassium ABG Glucose Carboxyhemoglobin Sodium Potassium Chloride Carbon Dioxide BUN Creatinine Glucose POC Glucose 126 H 120 H 127 H Calcium Magnesium Ferritin AST Alkaline Phosphatase Lactate Dehydrogenase C-Reactive Protein Total Protein Albumin Arterial Blood Glucose Arterial Blood Ionized Calcium Urine WBC (Auto) Coronavirus (PCR) 08/26/20 08/26/20 08/28/20 18:44 23:31 19:34 WBC RBC 3.09 L Hgb 8.7 L Hct 25.5 L MCV 82 L MCH MCHC RDW 17.1 H Lymph % (Auto) Porter % (Auto) 9.1 H Eos % (Auto) Lymph # (Auto) 0.8 L Seg Neutrophils % 71.7 H Seg Neutrophils # PT INR APTT D-Dimer Heparin Anti-Xa Level POC ABG pCO2 POC ABG pO2 ABG Hemoglobin ABG Sodium ABG Potassium ABG Glucose Carboxyhemoglobin Sodium Potassium Chloride Carbon Dioxide BUN Creatinine Glucose POC Glucose 125 H 115 H Calcium Magnesium Ferritin AST Alkaline Phosphatase Lactate Dehydrogenase C-Reactive Protein Total Protein Albumin Arterial Blood Glucose Arterial Blood Ionized Calcium Urine WBC (Auto) Coronavirus (PCR) 08/28/20 08/28/20 08/29/20 19:34 22:16 08:06 WBC RBC Hgb Hct MCV MCH MCHC RDW Lymph % (Auto) Porter % (Auto) Eos % (Auto) Lymph # (Auto) Seg Neutrophils % Seg Neutrophils # PT INR APTT D-Dimer Heparin Anti-Xa Level POC ABG pCO2 POC ABG pO2 ABG Hemoglobin ABG Sodium ABG Potassium ABG Glucose Carboxyhemoglobin Sodium 130 L Potassium 2.6 L* Chloride 96.4 L Carbon Dioxide BUN Creatinine Glucose 119 H POC Glucose 110 H 119 H Calcium 7.8 L Magnesium Ferritin AST Alkaline Phosphatase Lactate Dehydrogenase C-Reactive Protein Total Protein Albumin Arterial Blood Glucose Arterial Blood Ionized Calcium Urine WBC (Auto) Coronavirus (PCR) 08/29/20 08/29/20 08/29/20 12:13 16:37 17:38 WBC RBC Hgb Hct MCV MCH MCHC RDW Lymph % (Auto) Porter % (Auto) Eos % (Auto) Lymph # (Auto) Seg Neutrophils % Seg Neutrophils # PT INR APTT D-Dimer Heparin Anti-Xa Level POC ABG pCO2 POC ABG pO2 ABG Hemoglobin ABG Sodium ABG Potassium ABG Glucose Carboxyhemoglobin Sodium 133 L Potassium 3.0 L Chloride 97.9 L Carbon Dioxide 21 L BUN Creatinine Glucose 111 H POC Glucose 109 H 106 H Calcium 8.3 L Magnesium 1.30 L Ferritin AST Alkaline Phosphatase Lactate Dehydrogenase C-Reactive Protein Total Protein Albumin Arterial Blood Glucose Arterial Blood Ionized Calcium Urine WBC (Auto) Coronavirus (PCR) 08/29/20 08/29/20 08/29/20 19:21 19:21 19:21 WBC RBC Hgb Hct MCV MCH MCHC RDW Lymph % (Auto) Porter % (Auto) Eos % (Auto) Lymph # (Auto) Seg Neutrophils % Seg Neutrophils # PT INR APTT D-Dimer 688.12 H Heparin Anti-Xa Level POC ABG pCO2 POC ABG pO2 ABG Hemoglobin ABG Sodium ABG Potassium ABG Glucose Carboxyhemoglobin Sodium Potassium 3.1 L Chloride Carbon Dioxide BUN Creatinine Glucose POC Glucose Calcium Magnesium 1.50 L Ferritin 1476.0 H AST Alkaline Phosphatase Lactate Dehydrogenase C-Reactive Protein Total Protein Albumin Arterial Blood Glucose Arterial Blood Ionized Calcium Urine WBC (Auto) Coronavirus (PCR) 08/29/20 08/29/20 08/31/20 19:21 Unknown 04:30 WBC RBC 3.12 L Hgb 9.1 L Hct 25.7 L MCV 83 L MCH MCHC 35 H RDW 17.4 H Lymph % (Auto) Porter % (Auto) 9.4 H Eos % (Auto) Lymph # (Auto) Seg Neutrophils % Seg Neutrophils # PT INR APTT D-Dimer Heparin Anti-Xa Level POC ABG pCO2 POC ABG pO2 ABG Hemoglobin ABG Sodium ABG Potassium ABG Glucose Carboxyhemoglobin Sodium Potassium Chloride Carbon Dioxide BUN Creatinine Glucose POC Glucose Calcium Magnesium Ferritin AST Alkaline Phosphatase Lactate Dehydrogenase 373 H C-Reactive Protein 18.30 H Total Protein Albumin Arterial Blood Glucose Arterial Blood Ionized Calcium Urine WBC (Auto) Coronavirus (PCR) Positive A 08/31/20 09/02/20 09/02/20 04:30 06:28 06:49 WBC RBC Hgb Hct MCV MCH MCHC RDW Lymph % (Auto) Porter % (Auto) Eos % (Auto) Lymph # (Auto) Seg Neutrophils % Seg Neutrophils # PT INR APTT D-Dimer Heparin Anti-Xa Level POC ABG pCO2 26.2 L POC ABG pO2 82.2 L ABG Hemoglobin 10.1 L ABG Sodium 134.5 L ABG Potassium 3.2 L ABG Glucose 127 H Carboxyhemoglobin 0.3 L Sodium 134 L Potassium 3.4 L Chloride Carbon Dioxide BUN Creatinine Glucose 129 H POC Glucose 109 H Calcium 8.0 L Magnesium Ferritin AST Alkaline Phosphatase Lactate Dehydrogenase C-Reactive Protein Total Protein Albumin Arterial Blood Glucose 127 H Arterial Blood Ionized Calcium 4.5 L Urine WBC (Auto) Coronavirus (PCR) 09/02/20 09/02/20 09/02/20 11:32 15:55 15:55 WBC RBC Hgb Hct MCV MCH MCHC RDW Lymph % (Auto) Porter % (Auto) Eos % (Auto) Lymph # (Auto) Seg Neutrophils % Seg Neutrophils # PT 15.5 H INR 1.23 H APTT 50.2 H D-Dimer 2186.40 H Heparin Anti-Xa Level POC ABG pCO2 POC ABG pO2 ABG Hemoglobin ABG Sodium ABG Potassium ABG Glucose Carboxyhemoglobin Sodium Potassium Chloride Carbon Dioxide 21 L BUN 30 H Creatinine 1.6 H Glucose 125 H POC Glucose 112 H Calcium 7.8 L Magnesium Ferritin AST Alkaline Phosphatase Lactate Dehydrogenase C-Reactive Protein Total Protein Albumin Arterial Blood Glucose Arterial Blood Ionized Calcium Urine WBC (Auto) Coronavirus (PCR) 09/02/20 09/02/20 09/02/20 15:55 15:55 17:34 WBC 11.2 H RBC 2.94 L Hgb 8.1 L Hct 24.3 L MCV 83 L MCH 27 L MCHC RDW 17.7 H Lymph % (Auto) 12.7 L Porter % (Auto) Eos % (Auto) Lymph # (Auto) Seg Neutrophils % 82.5 H Seg Neutrophils # 9.3 H PT INR APTT D-Dimer Heparin Anti-Xa Level POC ABG pCO2 POC ABG pO2 ABG Hemoglobin ABG Sodium ABG Potassium ABG Glucose Carboxyhemoglobin Sodium Potassium Chloride Carbon Dioxide BUN Creatinine Glucose POC Glucose 127 H Calcium Magnesium Ferritin 1892.0 H AST Alkaline Phosphatase Lactate Dehydrogenase C-Reactive Protein Total Protein Albumin Arterial Blood Glucose Arterial Blood Ionized Calcium Urine WBC (Auto) Coronavirus (PCR) 09/03/20 09/03/20 09/03/20 07:13 16:40 23:40 WBC RBC Hgb Hct MCV MCH MCHC RDW Lymph % (Auto) Porter % (Auto) Eos % (Auto) Lymph # (Auto) Seg Neutrophils % Seg Neutrophils # PT INR APTT D-Dimer Heparin Anti-Xa Level 0.88 H POC ABG pCO2 POC ABG pO2 ABG Hemoglobin ABG Sodium ABG Potassium ABG Glucose Carboxyhemoglobin Sodium Potassium 3.2 L Chloride 109.7 H Carbon Dioxide BUN 24 H Creatinine Glucose 142 H POC Glucose 220 H Calcium 8.2 L Magnesium Ferritin AST 75 H Alkaline Phosphatase Lactate Dehydrogenase C-Reactive Protein Total Protein 5.8 L Albumin 2.7 L Arterial Blood Glucose Arterial Blood Ionized Calcium Urine WBC (Auto) Coronavirus (PCR) 09/04/20 09/04/20 09/04/20 07:25 07:25 11:57 WBC RBC Hgb 9.0 L Hct 27.9 L MCV MCH MCHC RDW Lymph % (Auto) Porter % (Auto) Eos % (Auto) Lymph # (Auto) Seg Neutrophils % Seg Neutrophils # PT INR APTT D-Dimer Heparin Anti-Xa Level POC ABG pCO2 POC ABG pO2 ABG Hemoglobin ABG Sodium ABG Potassium ABG Glucose Carboxyhemoglobin Sodium 148 H Potassium Chloride 116.9 H Carbon Dioxide BUN Creatinine Glucose 129 H POC Glucose 113 H Calcium Magnesium Ferritin AST 93 H Alkaline Phosphatase 134 H Lactate Dehydrogenase C-Reactive Protein Total Protein 6.0 L Albumin 2.6 L Arterial Blood Glucose Arterial Blood Ionized Calcium Urine WBC (Auto) Coronavirus (PCR) Chest x-ray: other (none today) Allied health notes reviewed: nursing
--- NOTE | 2020-09-04 17:29 | XRay Report ---
ABDOMEN 1 VIEW(S) INDICATION / CLINICAL INFORMATION: ngt placement. COMPARISON: None available. FINDINGS: TUBES / LINES: Gastric tube tip is in the right upper abdomen. BOWEL GAS PATTERN: No significant abnormality. FREE AIR / EXTRALUMINAL GAS: None seen. ADDITIONAL FINDINGS: No significant additional findings. IMPRESSION: 1. Gastric tube tip in the right upper abdomen, either at the gastric antrum or duodenal bulb. Signer Name: Matti Davis MD Signed: 09/04/2020 5:24 PM Workstation Name: [id number]
[2020-09-04] MEDS: METOPROLOL TARTRATE 50 MG TAB PO SCH ×2 (17:47→22:54)
[2020-09-04] MEDS: levoFLOXacin 750 MG TAB PO SCH (17:47)
[2020-09-04] MEDS: PANTOPRAZOLE 40 MG TAB PO SCH (17:47)
[2020-09-04] MEDS: FOLIC ACID 1 MG TAB PO SCH (17:47)
[2020-09-04] MEDS: amLODIPine 10 MG TAB PO SCH (17:47)
[2020-09-04] MEDS: CILOSTAZOL 100 MG TAB PO SCH ×2 (17:47→22:54)
[2020-09-04] MEDS: CLOPIDOGREL 75 MG TAB PO SCH (17:47)
[2020-09-04] MEDS: ZINC SULFATE 220 MG CAP PO SCH ×2 (17:48→22:54)
[2020-09-04] MEDS: ASCORBIC ACID 500 MG TAB PO SCH ×2 (17:48→22:54)
[2020-09-04] MEDS: THIAMINE 100 MG TAB PO SCH (17:48)
[2020-09-04] MEDS: VANCOMYCIN 1,500 MG in SODIUM CHLORIDE 0.9% 500 ML 500 ML IV SCH (18:17)
[2020-09-04] MEDS: SODIUM CHLORIDE 0.9% 50 ML IVPB IV SCH (22:47)
[2020-09-04] MEDS: REMDESIVIR 100 MG in SODIUM CHLORIDE 0.9% 250ML 250 ML IV SCH (22:47)
--- NOTE | 2020-09-04 23:53 | Progress Note ---
Assessment and Plan Assessment and Plan Assessment and plan: Patient is anxious to go home. Informed him that we are waiting for subacute rehab/SNF placement formalities Patient had lucas PCR test done today in preparation to placement to half-way versus subacute Covid test came back positive --[id number]; 08/29/2020 --Sepsis secondary to UTI/febrile illness T-max 101 F Antipyretics, continue Levaquin, Contact and droplet isolation Inflammatory markers, ID consult if she has already seen the patient Blood cultures , urine cultures negative to date plenty oral fluids, supportive care -- Necrosis of surgical wound h/o TMA on 07/30 he presented with increased bleeding from the wound Vascular consulted for further mx -- Peripheral vascular disease of lower extremity LLE revascularization done on 07/18 and 07/24 Continue antiplatelets and statin -- HTN (hypertension) continue antihypertensives --CAD (coronary artery disease) On Plavix, statin -- CHF (congestive heart failure), chronic diastolic and compensated 2D echo showed preserved EF We will hold the Lasix for now --Urinary retention, status post Renae placed on last admission Likely from BPH, urology f/u outpt --Sepsis secondary to UTI, started on levaquin --Obesity; BMI 33.6, patient needs weight reduction when medically stable -- DVT prophylaxis;On Heparin Subjective Date of service: 09/04/20 Principal diagnosis: Ac hypoxemic resp failure; COVID-19; Pneumonia; Sepsis; PVD; L. foot ulcer Objective - Constitutional Vitals: Vital Signs - 12hr 09/04/20 09/04/20 09/04/20 12:00 12:01 12:11 Temperature 98.7 F Pulse Rate 102 H 120 H Respiratory 30 H 21 17 Rate Blood Pressure 152/69 165/87 O2 Sat by Pulse 94 94 91 Oximetry 09/04/20 09/04/20 09/04/20 12:21 12:31 12:41 Temperature Pulse Rate 112 H 108 H 109 H Respiratory 26 H 16 24 Rate Blood Pressure 160/71 140/64 140/64 O2 Sat by Pulse 90 93 93 Oximetry 09/04/20 09/04/20 09/04/20 12:51 13:01 13:11 Temperature Pulse Rate 103 H 97 H 95 H Respiratory 17 15 17 Rate Blood Pressure 151/62 136/64 136/64 O2 Sat by Pulse 98 97 98 Oximetry 09/04/20 09/04/20 09/04/20 13:21 13:31 13:41 Temperature Pulse Rate 88 90 108 H Respiratory 17 17 12 Rate Blood Pressure 161/65 161/65 177/69 O2 Sat by Pulse 100 100 Oximetry 09/04/20 09/04/20 09/04/20 13:51 14:01 14:11 Temperature Pulse Rate 93 H 116 H 100 H Respiratory 19 15 16 Rate Blood Pressure 142/67 136/97 136/97 O2 Sat by Pulse 100 98 100 Oximetry 09/04/20 09/04/20 09/04/20 14:21 14:31 14:41 Temperature Pulse Rate 104 H 99 H 103 H Respiratory 14 18 21 Rate Blood Pressure 153/77 153/77 148/70 O2 Sat by Pulse 99 98 100 Oximetry 09/04/20 09/04/20 09/04/20 14:51 15:00 15:11 Temperature Pulse Rate 88 91 H 92 H Respiratory 21 11 L 16 Rate Blood Pressure 151/62 152/80 152/80 O2 Sat by Pulse 100 100 99 Oximetry 09/04/20 09/04/20 09/04/20 15:21 15:30 15:31 Temperature Pulse Rate 101 H 120 H 138 H Respiratory 13 17 13 Rate Blood Pressure 148/74 165/87 146/82 O2 Sat by Pulse 100 93 92 Oximetry 09/04/20 09/04/20 09/04/20 15:41 15:51 16:00 Temperature 98.1 F Pulse Rate 88 127 H 109 H Respiratory 19 12 14 Rate Blood Pressure 146/82 145/77 138/88 O2 Sat by Pulse 88 88 Oximetry 09/04/20 09/04/20 09/04/20 16:11 16:21 16:31 Temperature Pulse Rate 101 H 105 H 105 H Respiratory 11 L 12 20 Rate Blood Pressure 138/88 147/77 152/71 O2 Sat by Pulse 90 91 91 Oximetry 09/04/20 09/04/20 09/04/20 16:41 16:51 17:01 Temperature Pulse Rate 95 H 107 H 108 H Respiratory 17 18 19 Rate Blood Pressure 147/77 169/70 173/74 O2 Sat by Pulse 96 93 Oximetry 09/04/20 09/04/20 09/04/20 17:11 17:21 17:31 Temperature Pulse Rate 100 H 110 H 108 H Respiratory 19 23 19 Rate Blood Pressure 152/71 176/75 157/70 O2 Sat by Pulse 82 L 93 Oximetry 09/04/20 09/04/20 09/04/20 17:41 17:51 18:00 Temperature Pulse Rate 105 H 110 H 96 H Respiratory 22 20 16 Rate Blood Pressure 157/70 164/75 157/72 O2 Sat by Pulse 96 96 99 Oximetry 09/04/20 09/04/20 09/04/20 18:11 18:21 18:31 Temperature Pulse Rate 115 H 106 H 101 H Respiratory 23 14 15 Rate Blood Pressure 157/72 158/76 138/58 O2 Sat by Pulse 79 L 95 97 Oximetry 09/04/20 09/04/20 09/04/20 18:41 18:51 19:01 Temperature Pulse Rate 104 H 108 H 115 H Respiratory 13 16 18 Rate Blood Pressure 158/76 162/64 161/93 O2 Sat by Pulse 93 95 86 Oximetry 09/04/20 09/04/20 09/04/20 19:11 19:21 19:31 Temperature Pulse Rate 112 H 113 H 111 H Respiratory 22 16 21 Rate Blood Pressure 161/93 171/81 172/76 O2 Sat by Pulse 85 92 94 Oximetry 09/04/20 09/04/20 09/04/20 19:41 19:51 20:00 Temperature 98.0 F Pulse Rate 117 H 111 H Respiratory 16 21 Rate Blood Pressure 171/81 173/82 O2 Sat by Pulse 89 87 Oximetry 09/04/20 09/04/20 09/04/20 20:01 20:11 20:21 Temperature Pulse Rate 117 H 116 H 114 H Respiratory 21 22 20 Rate Blood Pressure 172/90 172/90 169/75 O2 Sat by Pulse 78 L 85 84 Oximetry 09/04/20 09/04/20 09/04/20 20:31 20:41 20:51 Temperature Pulse Rate 114 H 121 H 124 H Respiratory 20 17 16 Rate Blood Pressure 175/71 175/71 152/109 O2 Sat by Pulse 86 86 78 L Oximetry 09/04/20 09/04/20 21:15 21:53 Temperature Pulse Rate 122 H Respiratory 18 Rate Blood Pressure 163/78 O2 Sat by Pulse 95 96 Oximetry General appearance: Present: no acute distress, well-nourished - EENT Eyes: PERRL, EOM intact ENT: hearing intact, clear oral mucosa Ears: bilateral: normal - Neck Neck: supple, normal ROM - Respiratory Respiratory effort: normal Respiratory: bilateral: CTA - Breasts Breasts: normal - Cardiovascular Rhythm: regular Heart Sounds: Present: S1 & S2. Absent: gallop, rub Extremities: pulses intact, No edema, normal color, Full ROM - Gastrointestinal General gastrointestinal: Present: soft, non-tender, non-distended, normal bowel sounds - Genitourinary Male genitourinary: normal - Integumentary Integumentary: clear, warm, dry - Musculoskeletal Musculoskeletal: 1, strength equal bilaterally - Neurologic Neurologic: moves all extremities - Psychiatric Psychiatric: memory intact, appropriate mood/affect, intact judgment & insight - Labs CBC & Chem 7: 09/04/20 07:25 09/04/20 07:25 Labs: Abnormal lab results 09/03/20 09/04/20 09/04/20 Range/Units 23:40 07:25 07:25 Hgb 9.0 L (11.8-15.2) gm/dl Hct 27.9 L (35.5-45.6) % Heparin Anti-Xa Level 0.88 H (0.3-0.7) U.I./ml Sodium 148 H (137-145) mmol/L Chloride 116.9 H (98-107) mmol/L Glucose 129 H (75-100) mg/dL POC Glucose (70-105) mg/dL AST 93 H (5-40) units/L Alkaline Phosphatase 134 H (35-129) units/L Total Protein 6.0 L (6.3-8.2) g/dL Albumin 2.6 L (3.9-5) g/dL 09/04/20 Range/Units 11:57 Hgb (11.8-15.2) gm/dl Hct (35.5-45.6) % Heparin Anti-Xa Level (0.3-0.7) U.I./ml Sodium (137-145) mmol/L Chloride (98-107) mmol/L Glucose (75-100) mg/dL POC Glucose 113 H (70-105) mg/dL AST (5-40) units/L Alkaline Phosphatase (35-129) units/L Total Protein (6.3-8.2) g/dL Albumin (3.9-5) g/dL
[2020-09-05] MEDS: MORPHINE 4 MG/1 ML INJ IV PRN (00:41)
--- NOTE | 2020-09-05 05:17 | Event Note ---
I was called to the bedside by hospitalist team and respiratory therapist for request to intubate patient. Patient has been on BiPAP for several days. In spite FiO2 100%, IPAP 20, EPAP 12 highest oxygenation achieved 77%. With tight mask seal highest oxygen saturation 81%. Due to declining mental status and inability to oxygenate, intubation indicated. Rapid sequence intubation: I was at the bedside assisting with mask seal and BiPAP settings for 10 minutes for preoxygenation. Induction agent: Etomidate 20 mg, paralytic agent: Succinylcholine 180 mg 2 mg/kg dosing. I used Layne 4 video laryngoscope and 8-0 ETT to visualize vocal cords. I visualized ETT entering glottic opening vocal cords according to video laryngoscopy per however color change. Oxygen saturation 54% immediately after intubation. Total time of intubation attempt approximately 40 seconds. Patient oxygenation increased appropriately with ventilation through Ambu bag.
[2020-09-05] MEDS ORDERED: MINERAL OIL/PETROLATUM, WHITE OPHTH OINT 3.5 GM OU PRN (05:23)
[2020-09-05] MEDS ORDERED: LIP THERAPY VASELINE TP PRN (05:23)
[2020-09-05] MEDS ORDERED: MIDAZOLAM 2 MG/2 ML INJ IV PRN (05:23)
[2020-09-05] MEDS: fentaNYL DRIP Premix 2,000 MCG/100 ML BAG IV SCH ×3 (05:56→23:55)
[2020-09-05] MEDS ORDERED: MIDAZOLAM 100 MG in SODIUM CHLORIDE 0.9% 80 ML IV SCH (06:00)
--- NOTE | 2020-09-05 06:19 | XRay Report ---
CHEST 1 VIEW INDICATION / CLINICAL INFORMATION: ETT placement. COMPARISON: 09/02/2020 FINDINGS: SUPPORT DEVICES: Interval placement of ET tube. The tip is approximately 3.3 cm from the deysi and a ppears to be in satisfactory position. Indwelling NG tube and PICC line remain in stable and satisfac tory position. HEART / MEDIASTINUM: No significant abnormality. LUNGS / PLEURA: Diffuse bilateral pulmonary opacities are present and appear somewhat improved compar ed to the prior chest radiograph, especially in the left lung. No pneumothorax. ADDITIONAL FINDINGS: No significant additional findings. IMPRESSION: 1. Satisfactory positioning of endotracheal tube. 2. Diffuse bilateral pulmonary opacities which appear improved compared to 09/02/2020 chest radiograph . Signer Name: Alena Leung MD Signed: 09/05/2020 6:14 AM Workstation Name: [id number]
[2020-09-05 08:35] LABS: Albumin 2.7 g/dL (3.9-5)
[2020-09-05 08:48] LABS: Alanine Aminotransferase 28 units/L (7-56); BUN/Creatinine Ratio 15; Blood Urea Nitrogen 15 mg/dL (9-20); Calcium 8.8 mg/dL (8.4-10.2); Hemolysis Index 23
[2020-09-05] MEDS: NORepinephrine/NS 4 MG-250 ML 4 MG/250 ML BAG IV SCH ×3 (09:05→20:40)
[2020-09-05] MEDS: HEPARIN/ 0.45% NACL DRIP 25,000 UNIT/500 ML BAG IV SCH (09:06)
[2020-09-05] MEDS: AZTREONAM/NS 1 GM/50 ML 1 GM/50 ML VIAL IV SCH ×3 (09:48→21:02)
[2020-09-05] MEDS: LANSOPRAZOLE 30 MG SOLUTAB FEEDTUBE SCH (09:49)
[2020-09-05] MEDS: CILOSTAZOL 100 MG TAB PO SCH ×2 (09:52→21:09)
[2020-09-05] MEDS: THIAMINE 100 MG TAB PO SCH (09:53)
[2020-09-05] MEDS: ZINC SULFATE 220 MG CAP PO SCH ×2 (09:53→21:03)
[2020-09-05] MEDS: FOLIC ACID 1 MG TAB PO SCH (09:53)
[2020-09-05] MEDS: ASCORBIC ACID 500 MG TAB PO SCH ×2 (09:54→21:03)
[2020-09-05] MEDS: CLOPIDOGREL 75 MG TAB PO SCH (09:54)
--- NOTE | 2020-09-05 13:20 | Progress Note ---
Assessment and Plan Acute hypoxemic respiratory failure, on mechanical ventilatory support. COVID-19 infection. Bilateral pneumonia versus pulmonary edema. Severe sepsis with shock. Peripheral vascular disease. Anemia that is microcytic. History of alcohol abuse. Acute encephalopathy. History of obesity. History of coronary artery disease. History of gout. Hyperlipidemia. Hypertension, now hypotensive. Left lower extremity / left foot ulcer. - repeat ABG compensated; reduced FiO2 to 90% - free water supplementation 250 mls q4h - Daily SAT and SBT assessment as tolerated - continue to wean supplemental oxygen for target O2 sat's > 92% acutely - VAP bundle addressed - continue lung protective strategies - continue bronchodilators with pulmonary hygiene per RT - wean per pulmonary driven protocols otherwise - continue accuchecks with glycemic control per SSI (While critically ill target blood glucose of 140-180 mg/dL; avoid hypoglycemia) - sedation prn for target RASS 0 to -1 - avoid nephrotoxins, renally dose all medications - accuchecks with glycemic control per SSI (While critically ill target blood g lucose of 140-180 mg/dL; avoid hypoglycemia) - avoid benzodiazepine's, reduce the possibility of delirium - complete AB's per ID rec's - prn analgesia per CPOT score - Maintenance of sleep-wake cycle, avoid delirium - enteral nutritional support at goal rate as tolerated - G.I. & VTE prophylaxis - PT/OT/ROM exercises - continue mobility protocols for pressure ulcer prophylaxis - Monitor hemodynamics closely - continue other care per attending / other consultants - discharge planning ongoing concurrently COVID SPECIFIC INTERVENTIONS - complete Remdesivir as per ID/Pulmonary developed protocols (#4 of 5) - systemic steroids for severe COVID-19 infection empirically - follow repeat COVID tests results - zinc and vitamin C supplementation - Monitor inflammatory markers per facility protocol - ferritin, Ddimer, CRP - therapeutic anticoagulation per system Protocol based on d-dimer and clinical considerations - Continue contact and airborne isolation .... Re-evaluate in am & prn CONDITION: CRITICAL PROGNOSIS: GUARDED CODE STATUS: FULL CODE The high probability of a clinically significant, sudden or life-threatening deterioration of the [respiratory, cardiovascular, renal & neurologic] system(s) required my full and direct attention, intervention and personal management. The aggregate critical care time was [37] minutes without overlap. Time includes spent on; [x] Data Review and interpretation [x] Patient assessment and monitoring of vital signs [x] Documentation [x] Medication orders and management Subjective Date of service: 09/05/20 Principal diagnosis: Ac hypoxemic resp failure; COVID-19; Pneumonia; Sepsis; PVD; L. foot ulcer Interval history: Patient is seen today for: Acute hypoxemic respiratory failure; COVID-19 infection; Bilateral pneumonia versus pulmonary edema; Severe sepsis with shock; Peripheral vascular disease; Acute encephalopathy; Left lower extremity / left foot ulcer. Seen and examined at bedside; 24hour events reviewed; nursing and respiratory care staff consulted; no adverse overnight events reported to me; resting peacefully in bed; decompensatede with prolonged desaturations overnight and semi-emergently intubated by E.R. physician (assistance appreciated); no emesis or overt aspiration Objective Vital Signs - 12hr 09/05/20 09/05/20 09/05/20 01:30 01:46 02:00 Temperature Pulse Rate 113 H 134 H 111 H Pulse Rate [ From Monitor] Respiratory 18 17 16 Rate Blood Pressure 177/87 180/95 177/94 O2 Sat by Pulse 93 93 91 Oximetry 09/05/20 09/05/20 09/05/20 02:16 02:30 02:46 Temperature Pulse Rate 127 H 123 H 139 H Pulse Rate [ From Monitor] Respiratory 17 18 30 H Rate Blood Pressure 172/98 174/96 189/119 O2 Sat by Pulse 92 91 88 Oximetry 09/05/20 09/05/20 09/05/20 03:00 03:16 03:30 Temperature Pulse Rate 151 H 144 H 144 H Pulse Rate [ From Monitor] Respiratory 48 H 21 25 H Rate Blood Pressure 189/119 163/96 165/93 O2 Sat by Pulse 86 89 87 Oximetry 09/05/20 09/05/20 09/05/20 03:46 04:00 04:16 Temperature 100.7 F H Pulse Rate 144 H 154 H 147 H Pulse Rate [ From Monitor] Respiratory 22 26 H 29 H Rate Blood Pressure 178/94 178/94 173/99 O2 Sat by Pulse 85 83 L 78 L Oximetry 09/05/20 09/05/20 09/05/20 04:30 04:45 05:00 Temperature Pulse Rate 148 H 147 H 149 H Pulse Rate [ From Monitor] Respiratory 29 H 21 25 H Rate Blood Pressure 172/95 169/92 164/87 O2 Sat by Pulse 77 L 73 L 79 L Oximetry 09/05/20 09/05/20 09/05/20 05:16 05:30 05:45 Temperature Pulse Rate 144 H 139 H 144 H Pulse Rate [ 154 H From Monitor] Respiratory 20 20 19 Rate Blood Pressure 165/83 145/67 149/62 O2 Sat by Pulse 85 79 L 79 L Oximetry 09/05/20 09/05/20 09/05/20 06:00 06:05 06:16 Temperature Pulse Rate 137 H 144 H 144 H Pulse Rate [ From Monitor] Respiratory 28 H 17 Rate Blood Pressure 143/72 143/72 136/72 O2 Sat by Pulse 81 L 85 82 L Oximetry 09/05/20 09/05/20 09/05/20 06:30 06:46 07:00 Temperature Pulse Rate 145 H 134 H 125 H Pulse Rate [ From Monitor] Respiratory 27 H 28 H 30 H Rate Blood Pressure 135/61 106/49 84/44 O2 Sat by Pulse 89 95 95 Oximetry 09/05/20 09/05/20 09/05/20 07:15 07:30 07:46 Temperature Pulse Rate 125 H 128 H 116 H Pulse Rate [ From Monitor] Respiratory 29 H 30 H 16 Rate Blood Pressure 77/37 82/43 121/55 O2 Sat by Pulse 95 95 88 Oximetry 09/05/20 09/05/20 09/05/20 08:00 08:15 08:30 Temperature 100.0 F H Pulse Rate 133 H 137 H 131 H Pulse Rate [ From Monitor] Respiratory 30 H 30 H 30 H Rate Blood Pressure 96/44 79/39 75/37 O2 Sat by Pulse 98 99 100 Oximetry 09/05/20 09/05/20 09/05/20 08:45 08:58 09:00 Temperature Pulse Rate 130 H 128 H 124 H Pulse Rate [ From Monitor] Respiratory 30 H 30 H Rate Blood Pressure 73/35 82/35 82/35 O2 Sat by Pulse 100 100 100 Oximetry 09/05/20 09/05/20 09/05/20 09:15 09:30 09:45 Temperature Pulse Rate 116 H 122 H 129 H Pulse Rate [ From Monitor] Respiratory 30 H 30 H 31 H Rate Blood Pressure 85/40 87/37 85/42 O2 Sat by Pulse 99 100 99 Oximetry 09/05/20 09/05/20 09/05/20 10:00 10:15 10:30 Temperature Pulse Rate 147 H 114 H 109 H Pulse Rate [ From Monitor] Respiratory 30 H 30 H 30 H Rate Blood Pressure 90/37 97/46 94/48 O2 Sat by Pulse 99 99 99 Oximetry 09/05/20 09/05/20 09/05/20 10:45 11:00 11:16 Temperature Pulse Rate 75 90 126 H Pulse Rate [ From Monitor] Respiratory 30 H 30 H 27 H Rate Blood Pressure 80/42 86/51 93/51 O2 Sat by Pulse 98 99 99 Oximetry 09/05/20 09/05/20 09/05/20 11:30 11:45 12:00 Temperature Pulse Rate 122 H 106 H Pulse Rate [ From Monitor] Respiratory 30 H 30 H Rate Blood Pressure 106/51 100/52 O2 Sat by Pulse 99 98 98 Oximetry 09/05/20 12:36 Temperature Pulse Rate 101 H Pulse Rate [ From Monitor] Respiratory Rate Blood Pressure 99/50 O2 Sat by Pulse 99 Oximetry Constitutional: no acute distress, other (elderly obese male with mildly increased respiratory effort at rest on MVS) Eyes: non-icteric ENT: oropharynx moist, other (ETT 24 cm MONICA) Neck: supple, no lymphadenopathy, no JVD Effort: mildly labored Ascultation: Bilateral: diminished breath sounds, rales Percussion: Bilateral: not dull Cardiovascular: regular rate and rhythm Gastrointestinal: normoactive bowel sounds, soft, non-tender, non-distended (protuberant) Integumentary: normal (in areas i examined; please see [facility] notes for full description) Extremities: no cyanosis, pink and warm, pulses normal, no ischemia or petechiae Neurologic: non-focal exam (grossly), pupils equal and round, other (lethargic) Psychiatric: other (unable to assess) CBC and BMP: 09/04/20 07:25 09/05/20 07:17 ABG, PT/INR, D-dimer: ABG ABG pH 7.218 (7.320-7.450) L 09/05/20 06:24 POC ABG pCO2 66.0 mmHg (32.0-48.0) H 09/05/20 06:24 POC ABG pO2 45.8 mmHg (83-108) L 09/05/20 06:24 POC ABG HCO3 26.3 09/05/20 06:24 PT/INR, D-dimer PT 15.5 Sec. (12.2-14.9) H 09/02/20 15:55 INR 1.23 (0.87-1.13) H 09/02/20 15:55 D-Dimer 2186.40 ng/mlDDU (0-234) H 09/02/20 15:55 Abnormal lab findings: Abnormal Labs 08/15/20 08/15/20 08/15/20 08:49 10:40 10:40 WBC RBC 2.96 L Hgb 9.0 L Hct 25.8 L MCV MCH MCHC 35 H RDW 16.2 H Lymph % (Auto) Clare % (Auto) Eos % (Auto) Lymph # (Auto) Seg Neutrophils % Seg Neutrophils # PT INR APTT D-Dimer Heparin Anti-Xa Level ABG pH POC ABG pCO2 POC ABG pO2 ABG Hemoglobin ABG Oxyhemoglobin ABG Sodium ABG Potassium ABG Chloride ABG Glucose Carboxyhemoglobin Sodium Potassium Chloride Carbon Dioxide BUN Creatinine 0.7 L Glucose 188 H POC Glucose 212 H Calcium 8.3 L Magnesium Ferritin AST Alkaline Phosphatase Lactate Dehydrogenase C-Reactive Protein Total Protein Albumin Arterial Blood Glucose Arterial Blood Ionized Calcium Urine WBC (Auto) Coronavirus (PCR) 08/15/20 08/15/20 08/16/20 14:00 Unknown 04:43 WBC RBC 3.28 L Hgb 9.6 L Hct 29.3 L MCV MCH MCHC RDW 16.6 H Lymph % (Auto) Clare % (Auto) Eos % (Auto) 4.9 H Lymph # (Auto) Seg Neutrophils % Seg Neutrophils # PT INR APTT D-Dimer Heparin Anti-Xa Level ABG pH POC ABG pCO2 POC ABG pO2 ABG Hemoglobin ABG Oxyhemoglobin ABG Sodium ABG Potassium ABG Chloride ABG Glucose Carboxyhemoglobin Sodium Potassium Chloride Carbon Dioxide BUN 8 L Creatinine 0.6 L Glucose 115 H POC Glucose Calcium Magnesium Ferritin AST Alkaline Phosphatase Lactate Dehydrogenase C-Reactive Protein Total Protein Albumin Arterial Blood Glucose Arterial Blood Ionized Calcium Urine WBC (Auto) 31.0 H Coronavirus (PCR) 08/16/20 08/18/20 08/20/20 04:43 15:17 07:12 WBC RBC Hgb 9.1 L Hct 27.2 L MCV MCH MCHC RDW Lymph % (Auto) Clare % (Auto) Eos % (Auto) Lymph # (Auto) Seg Neutrophils % Seg Neutrophils # PT INR APTT D-Dimer Heparin Anti-Xa Level ABG pH POC ABG pCO2 POC ABG pO2 ABG Hemoglobin ABG Oxyhemoglobin ABG Sodium ABG Potassium ABG Chloride ABG Glucose Carboxyhemoglobin Sodium 135 L Potassium Chloride 97.5 L Carbon Dioxide BUN Creatinine 0.5 L Glucose 153 H 135 H POC Glucose Calcium Magnesium Ferritin AST Alkaline Phosphatase Lactate Dehydrogenase C-Reactive Protein Total Protein Albumin Arterial Blood Glucose Arterial Blood Ionized Calcium Urine WBC (Auto) Coronavirus (PCR) 08/20/20 08/20/20 08/20/20 07:12 07:12 08:07 WBC RBC Hgb Hct MCV MCH MCHC RDW Lymph % (Auto) Clare % (Auto) Eos % (Auto) Lymph # (Auto) Seg Neutrophils % Seg Neutrophils # PT INR 1.15 H APTT D-Dimer Heparin Anti-Xa Level ABG pH POC ABG pCO2 POC ABG pO2 ABG Hemoglobin ABG Oxyhemoglobin ABG Sodium ABG Potassium ABG Chloride ABG Glucose Carboxyhemoglobin Sodium Potassium Chloride Carbon Dioxide BUN Creatinine Glucose 113 H POC Glucose 108 H Calcium Magnesium Ferritin AST Alkaline Phosphatase Lactate Dehydrogenase C-Reactive Protein Total Protein Albumin Arterial Blood Glucose Arterial Blood Ionized Calcium Urine WBC (Auto) Coronavirus (PCR) 08/20/20 08/20/20 08/21/20 16:32 22:34 07:42 WBC RBC Hgb Hct MCV MCH MCHC RDW Lymph % (Auto) Clare % (Auto) Eos % (Auto) Lymph # (Auto) Seg Neutrophils % Seg Neutrophils # PT INR APTT D-Dimer Heparin Anti-Xa Level ABG pH POC ABG pCO2 POC ABG pO2 ABG Hemoglobin ABG Oxyhemoglobin ABG Sodium ABG Potassium ABG Chloride ABG Glucose Carboxyhemoglobin Sodium Potassium Chloride Carbon Dioxide BUN Creatinine Glucose POC Glucose 107 H 139 H 115 H Calcium Magnesium Ferritin AST Alkaline Phosphatase Lactate Dehydrogenase C-Reactive Protein Total Protein Albumin Arterial Blood Glucose Arterial Blood Ionized Calcium Urine WBC (Auto) Coronavirus (PCR) 08/21/20 08/21/20 08/21/20 08:14 08:14 11:31 WBC RBC 3.08 L Hgb 8.9 L Hct 27.0 L MCV MCH MCHC RDW 16.7 H Lymph % (Auto) Clare % (Auto) Eos % (Auto) Lymph # (Auto) Seg Neutrophils % Seg Neutrophils # PT INR APTT D-Dimer Heparin Anti-Xa Level ABG pH POC ABG pCO2 POC ABG pO2 ABG Hemoglobin ABG Oxyhemoglobin ABG Sodium ABG Potassium ABG Chloride ABG Glucose Carboxyhemoglobin Sodium 136 L Potassium Chloride Carbon Dioxide BUN Creatinine Glucose 129 H POC Glucose 132 H Calcium Magnesium Ferritin AST Alkaline Phosphatase Lactate Dehydrogenase C-Reactive Protein Total Protein Albumin Arterial Blood Glucose Arterial Blood Ionized Calcium Urine WBC (Auto) Coronavirus (PCR) 08/24/20 08/25/20 08/26/20 10:57 18:39 11:57 WBC RBC Hgb Hct MCV MCH MCHC RDW Lymph % (Auto) Clare % (Auto) Eos % (Auto) Lymph # (Auto) Seg Neutrophils % Seg Neutrophils # PT INR APTT D-Dimer Heparin Anti-Xa Level ABG pH POC ABG pCO2 POC ABG pO2 ABG Hemoglobin ABG Oxyhemoglobin ABG Sodium ABG Potassium ABG Chloride ABG Glucose Carboxyhemoglobin Sodium Potassium Chloride Carbon Dioxide BUN Creatinine Glucose POC Glucose 126 H 120 H 127 H Calcium Magnesium Ferritin AST Alkaline Phosphatase Lactate Dehydrogenase C-Reactive Protein Total Protein Albumin Arterial Blood Glucose Arterial Blood Ionized Calcium Urine WBC (Auto) Coronavirus (PCR) 08/26/20 08/26/20 08/28/20 18:44 23:31 19:34 WBC RBC 3.09 L Hgb 8.7 L Hct 25.5 L MCV 82 L MCH MCHC RDW 17.1 H Lymph % (Auto) Clare % (Auto) 9.1 H Eos % (Auto) Lymph # (Auto) 0.8 L Seg Neutrophils % 71.7 H Seg Neutrophils # PT INR APTT D-Dimer Heparin Anti-Xa Level ABG pH POC ABG pCO2 POC ABG pO2 ABG Hemoglobin ABG Oxyhemoglobin ABG Sodium ABG Potassium ABG Chloride ABG Glucose Carboxyhemoglobin Sodium Potassium Chloride Carbon Dioxide BUN Creatinine Glucose POC Glucose 125 H 115 H Calcium Magnesium Ferritin AST Alkaline Phosphatase Lactate Dehydrogenase C-Reactive Protein Total Protein Albumin Arterial Blood Glucose Arterial Blood Ionized Calcium Urine WBC (Auto) Coronavirus (PCR) 08/28/20 08/28/20 08/29/20 19:34 22:16 08:06 WBC RBC Hgb Hct MCV MCH MCHC RDW Lymph % (Auto) Clare % (Auto) Eos % (Auto) Lymph # (Auto) Seg Neutrophils % Seg Neutrophils # PT INR APTT D-Dimer Heparin Anti-Xa Level ABG pH POC ABG pCO2 POC ABG pO2 ABG Hemoglobin ABG Oxyhemoglobin ABG Sodium ABG Potassium ABG Chloride ABG Glucose Carboxyhemoglobin Sodium 130 L Potassium 2.6 L* Chloride 96.4 L Carbon Dioxide BUN Creatinine Glucose 119 H POC Glucose 110 H 119 H Calcium 7.8 L Magnesium Ferritin AST Alkaline Phosphatase Lactate Dehydrogenase C-Reactive Protein Total Protein Albumin Arterial Blood Glucose Arterial Blood Ionized Calcium Urine WBC (Auto) Coronavirus (PCR) 08/29/20 08/29/20 08/29/20 12:13 16:37 17:38 WBC RBC Hgb Hct MCV MCH MCHC RDW Lymph % (Auto) Clare % (Auto) Eos % (Auto) Lymph # (Auto) Seg Neutrophils % Seg Neutrophils # PT INR APTT D-Dimer Heparin Anti-Xa Level ABG pH POC ABG pCO2 POC ABG pO2 ABG Hemoglobin ABG Oxyhemoglobin ABG Sodium ABG Potassium ABG Chloride ABG Glucose Carboxyhemoglobin Sodium 133 L Potassium 3.0 L Chloride 97.9 L Carbon Dioxide 21 L BUN Creatinine Glucose 111 H POC Glucose 109 H 106 H Calcium 8.3 L Magnesium 1.30 L Ferritin AST Alkaline Phosphatase Lactate Dehydrogenase C-Reactive Protein Total Protein Albumin Arterial Blood Glucose Arterial Blood Ionized Calcium Urine WBC (Auto) Coronavirus (PCR) 08/29/20 08/29/20 08/29/20 19:21 19:21 19:21 WBC RBC Hgb Hct MCV MCH MCHC RDW Lymph % (Auto) Clare % (Auto) Eos % (Auto) Lymph # (Auto) Seg Neutrophils % Seg Neutrophils # PT INR APTT D-Dimer 688.12 H Heparin Anti-Xa Level ABG pH POC ABG pCO2 POC ABG pO2 ABG Hemoglobin ABG Oxyhemoglobin ABG Sodium ABG Potassium ABG Chloride ABG Glucose Carboxyhemoglobin Sodium Potassium 3.1 L Chloride Carbon Dioxide BUN Creatinine Glucose POC Glucose Calcium Magnesium 1.50 L Ferritin 1476.0 H AST Alkaline Phosphatase Lactate Dehydrogenase C-Reactive Protein Total Protein Albumin Arterial Blood Glucose Arterial Blood Ionized Calcium Urine WBC (Auto) Coronavirus (PCR) 08/29/20 08/29/20 08/31/20 19:21 Unknown 04:30 WBC RBC 3.12 L Hgb 9.1 L Hct 25.7 L MCV 83 L MCH MCHC 35 H RDW 17.4 H Lymph % (Auto) Clare % (Auto) 9.4 H Eos % (Auto) Lymph # (Auto) Seg Neutrophils % Seg Neutrophils # PT INR APTT D-Dimer Heparin Anti-Xa Level ABG pH POC ABG pCO2 POC ABG pO2 ABG Hemoglobin ABG Oxyhemoglobin ABG Sodium ABG Potassium ABG Chloride ABG Glucose Carboxyhemoglobin Sodium Potassium Chloride Carbon Dioxide BUN Creatinine Glucose POC Glucose Calcium Magnesium Ferritin AST Alkaline Phosphatase Lactate Dehydrogenase 373 H C-Reactive Protein 18.30 H Total Protein Albumin Arterial Blood Glucose Arterial Blood Ionized Calcium Urine WBC (Auto) Coronavirus (PCR) Positive A 08/31/20 09/02/20 09/02/20 04:30 06:28 06:49 WBC RBC Hgb Hct MCV MCH MCHC RDW Lymph % (Auto) Clare % (Auto) Eos % (Auto) Lymph # (Auto) Seg Neutrophils % Seg Neutrophils # PT INR APTT D-Dimer Heparin Anti-Xa Level ABG pH POC ABG pCO2 26.2 L POC ABG pO2 82.2 L ABG Hemoglobin 10.1 L ABG Oxyhemoglobin ABG Sodium 134.5 L ABG Potassium 3.2 L ABG Chloride ABG Glucose 127 H Carboxyhemoglobin 0.3 L Sodium 134 L Potassium 3.4 L Chloride Carbon Dioxide BUN Creatinine Glucose 129 H POC Glucose 109 H Calcium 8.0 L Magnesium Ferritin AST Alkaline Phosphatase Lactate Dehydrogenase C-Reactive Protein Total Protein Albumin Arterial Blood Glucose 127 H Arterial Blood Ionized Calcium 4.5 L Urine WBC (Auto) Coronavirus (PCR) 09/02/20 09/02/20 09/02/20 11:32 15:55 15:55 WBC RBC Hgb Hct MCV MCH MCHC RDW Lymph % (Auto) Clare % (Auto) Eos % (Auto) Lymph # (Auto) Seg Neutrophils % Seg Neutrophils # PT 15.5 H INR 1.23 H APTT 50.2 H D-Dimer 2186.40 H Heparin Anti-Xa Level ABG pH POC ABG pCO2 POC ABG pO2 ABG Hemoglobin ABG Oxyhemoglobin ABG Sodium ABG Potassium ABG Chloride ABG Glucose Carboxyhemoglobin Sodium Potassium Chloride Carbon Dioxide 21 L BUN 30 H Creatinine 1.6 H Glucose 125 H POC Glucose 112 H Calcium 7.8 L Magnesium Ferritin AST Alkaline Phosphatase Lactate Dehydrogenase C-Reactive Protein Total Protein Albumin Arterial Blood Glucose Arterial Blood Ionized Calcium Urine WBC (Auto) Coronavirus (PCR) 09/02/20 09/02/2009/02/21 15:55 15:55 17:34 WBC 11.2 H RBC 2.94 L Hgb 8.1 L Hct 24.3 L MCV 83 L MCH 27 L MCHC RDW 17.7 H Lymph % (Auto) 12.7 L Clare % (Auto) Eos % (Auto) Lymph # (Auto) Seg Neutrophils % 82.5 H Seg Neutrophils # 9.3 H PT INR APTT D-Dimer Heparin Anti-Xa Level ABG pH POC ABG pCO2 POC ABG pO2 ABG Hemoglobin ABG Oxyhemoglobin ABG Sodium ABG Potassium ABG Chloride ABG Glucose Carboxyhemoglobin Sodium Potassium Chloride Carbon Dioxide BUN Creatinine Glucose POC Glucose 127 H Calcium Magnesium Ferritin 1892.0 H AST Alkaline Phosphatase Lactate Dehydrogenase C-Reactive Protein Total Protein Albumin Arterial Blood Glucose Arterial Blood Ionized Calcium Urine WBC (Auto) Coronavirus (PCR) 09/03/20 09/03/20 09/03/20 07:13 16:40 23:40 WBC RBC Hgb Hct MCV MCH MCHC RDW Lymph % (Auto) Clare % (Auto) Eos % (Auto) Lymph # (Auto) Seg Neutrophils % Seg Neutrophils # PT INR APTT D-Dimer Heparin Anti-Xa Level 0.88 H ABG pH POC ABG pCO2 POC ABG pO2 ABG Hemoglobin ABG Oxyhemoglobin ABG Sodium ABG Potassium ABG Chloride ABG Glucose Carboxyhemoglobin Sodium Potassium 3.2 L Chloride 109.7 H Carbon Dioxide BUN 24 H Creatinine Glucose 142 H POC Glucose 220 H Calcium 8.2 L Magnesium Ferritin AST 75 H Alkaline Phosphatase Lactate Dehydrogenase C-Reactive Protein Total Protein 5.8 L Albumin 2.7 L Arterial Blood Glucose Arterial Blood Ionized Calcium Urine WBC (Auto) Coronavirus (PCR) 09/04/20 09/04/20 09/04/20 07:25 07:25 11:57 WBC RBC Hgb 9.0 L Hct 27.9 L MCV MCH MCHC RDW Lymph % (Auto) Clare % (Auto) Eos % (Auto) Lymph # (Auto) Seg Neutrophils % Seg Neutrophils # PT INR APTT D-Dimer Heparin Anti-Xa Level ABG pH POC ABG pCO2 POC ABG pO2 ABG Hemoglobin ABG Oxyhemoglobin ABG Sodium ABG Potassium ABG Chloride ABG Glucose Carboxyhemoglobin Sodium 148 H Potassium Chloride 116.9 H Carbon Dioxide BUN Creatinine Glucose 129 H POC Glucose 113 H Calcium Magnesium Ferritin AST 93 H Alkaline Phosphatase 134 H Lactate Dehydrogenase C-Reactive Protein Total Protein 6.0 L Albumin 2.6 L Arterial Blood Glucose Arterial Blood Ionized Calcium Urine WBC (Auto) Coronavirus (PCR) 09/05/20 09/05/20 06:24 07:17 WBC RBC Hgb Hct MCV MCH MCHC RDW Lymph % (Auto) Clare % (Auto) Eos % (Auto) Lymph # (Auto) Seg Neutrophils % Seg Neutrophils # PT INR APTT D-Dimer Heparin Anti-Xa Level ABG pH 7.218 L POC ABG pCO2 66.0 H POC ABG pO2 45.8 L ABG Hemoglobin 10.7 L ABG Oxyhemoglobin 74.5 L ABG Sodium 146.5 H ABG Potassium ABG Chloride 115.0 H ABG Glucose 146 H Carboxyhemoglobin 0.1 L Sodium 152 H Potassium Chloride 115.9 H Carbon Dioxide BUN Creatinine Glucose 134 H POC Glucose Calcium Magnesium Ferritin AST 69 H Alkaline Phosphatase 168 H Lactate Dehydrogenase C-Reactive Protein Total Protein 5.4 L Albumin 2.7 L Arterial Blood Glucose 146 H Arterial Blood Ionized Calcium Urine WBC (Auto) Coronavirus (PCR) Chest x-ray: image reviewed (dense R>L infiltrates; tubes and lines in good position) Allied health notes reviewed: nursing
[2020-09-05] MEDS: dexAMETHasone 4 MG/ML VIAL IV SCH (13:21)
[2020-09-05] MEDS: METOPROLOL TARTRATE 50 MG TAB PO SCH ×2 (13:22→21:15)
[2020-09-05] MEDS: amLODIPine 10 MG TAB PO SCH (13:22)
[2020-09-05] MEDS: VANCOMYCIN 1,500 MG in SODIUM CHLORIDE 0.9% 500 ML 500 ML IV SCH (15:13)
--- NOTE | 2020-09-05 15:14 | Progress Note ---
Assessment and Plan Cultures: 08/16/2020 SARS CoV2 PCR: Negative 08/29/2020 SARS CoV2 PCR: Positive 08/15/2020 urine culture: No growth 08/24/2020 blood culture: No growth 08/28/2020 blood culture: No growth 08/28/2020 urine culture: No growth A/P: 64-year-old male with hypertension, coronary artery disease, peripheral vascular disease, gout, alcohol dependence was admitted to the hospital on 08/15/2020 due to bleeding from his left foot which is a site of a previous surgery. Patient was noted to have wound dehiscence complicated by wound necrosis. Was seen by vascular surgery. He underwent a TMA. Due to fever, patient was receiving IV levofloxacin for UTI. COVID-19 test done on 08/29/2020 for placement reasons came back positive. Patient has been having intermittent fevers since 08/28/2020. 09/02/2020, a code MET was called due to tachypnea and labored respirations: #Shock: Probably from severe COVID-19. #Bilateral pneumonia: Secondary to COVID-19. Patient with severe hypoxia, elevated inflammatory markers. Recently had completed levofloxacin. #Acute hypoxic respiratory failure: Now intubated #Peripheral vascular disease, wound dehiscence and necrosis: underwent TMA by vascular surgery #Coronary artery disease, CHF Recs: -Agree with IV/PO Dexamethasone 6 mg daily x 10 days -Remdesivir ordered. Day 4 of 5 -Continue empiric antibiotics (Aztreonam, Levofloxacin, Vancomycin). Procal elevated. Continue for now. -prophylactic anticoagulation based on d-dimer per hospital protocol -trend ferritin, LDH, d-dimer, CRP every 2-3 days for risk stratification and to assess disease progression Tara Stockton MD [facility] ([facility] O: [phone] F: [phone] Subjective Date of service: 09/05/20 Principal diagnosis: Ac hypoxemic resp failure; COVID-19; Pneumonia; Sepsis; PVD; L. foot ulcer Interval history: Febrile to 100.7 last night. Tracheal aspirate cultures were obtained. Now intubated. Imaging personally reviewed: Chest x-ray: Improving diffuse bilateral pulmonary opacities Objective - Exam Narrative Exam: Physical Exam (reviewed in chart to minimize risk of transmission) Constitutional: deferred Head, Ears, Nose: deferred Eyes: deferred Neck: deferred Oral: deferred Cardiovascular: deferred Respiratory: deferred GI: deferred Musculoskeletal: deferred Skin: deferred Hem/Lymphatic: deferred Psych: deferred Neurological: deferred - Constitutional Vitals: Vital Signs Temp Pulse Resp BP Pulse Ox 100.0 F H 100 H 30 H 93/51 100 09/05/20 08:00 09/05/20 14:00 09/05/20 14:00 09/05/20 14:00 09/05/20 14:00 Temperature -Last 24 Hours Temperature 100.0 F Temperature 100.7 F Temperature 98.8 F Temperature 98.0 F Temperature 98.1 F - Labs CBC & Chem 7: 09/04/20 07:25 09/05/20 07:17 Labs: Abnormal lab results 09/05/20 09/05/20 09/05/20 Range/Units 06:24 07:17 13:38 ABG pH 7.218 L (7.320-7.450) POC ABG pCO2 66.0 H (32.0-48.0) mmHg POC ABG pO2 45.8 L 79.1 L (83-108) mmHg ABG Hemoglobin 10.7 L 9.6 L (12.0-17.5) ABG Oxyhemoglobin 74.5 L (94-98) ABG Sodium 146.5 H 145.4 H (136.0-145.0) mmol/L ABG Chloride 115.0 H 117.0 H (98-107) mmol/L ABG Glucose 146 H 106 H (65-95) mg/dL Carboxyhemoglobin 0.1 L 0 L (0.5-1.5) Sodium 152 H (137-145) mmol/L Chloride 115.9 H (98-107) mmol/L Glucose 134 H (75-100) mg/dL AST 69 H (5-40) units/L Alkaline Phosphatase 168 H (35-129) units/L Total Protein 5.4 L (6.3-8.2) g/dL Albumin 2.7 L (3.9-5) g/dL Arterial Blood Glucose 146 H 106 H (65-95) mg/dL
[2020-09-05] MEDS: REMDESIVIR 100 MG in SODIUM CHLORIDE 0.9% 250ML 250 ML IV SCH (20:54)
[2020-09-05] MEDS: SODIUM CHLORIDE 0.9% 50 ML IVPB IV SCH (20:55)
[2020-09-05] MEDS: ENOXAPARIN 100 MG/1 ML INJ SUB-Q SCH (21:02)
--- NOTE | 2020-09-05 23:47 | Progress Note ---
Assessment and Plan Assessment and Plan Assessment and plan: Patient is anxious to go home. Informed him that we are waiting for subacute rehab/SNF placement formalities Patient had lucas PCR test done today in preparation to placement to jail versus subacute Covid test came back positive --[id number]; 08/29/2020 --Sepsis secondary to UTI/febrile illness T-max 101 F Antipyretics, continue Levaquin, Contact and droplet isolation Inflammatory markers, ID consult if she has already seen the patient Blood cultures , urine cultures negative to date plenty oral fluids, supportive care -- Necrosis of surgical wound h/o TMA on 07/30 he presented with increased bleeding from the wound Vascular consulted for further mx -- Peripheral vascular disease of lower extremity LLE revascularization done on 07/18 and 07/24 Continue antiplatelets and statin -- HTN (hypertension) continue antihypertensives --CAD (coronary artery disease) On Plavix, statin -- CHF (congestive heart failure), chronic diastolic and compensated 2D echo showed preserved EF We will hold the Lasix for now --Urinary retention, status post Renae placed on last admission Likely from BPH, urology f/u outpt --Sepsis secondary to UTI, started on levaquin --Obesity; BMI 33.6, patient needs weight reduction when medically stable -- DVT prophylaxis;On Heparin Subjective Date of service: 09/05/20 Principal diagnosis: Ac hypoxemic resp failure; COVID-19; Pneumonia; Sepsis; PVD; L. foot ulcer Objective - Constitutional Vitals: Vital Signs - 12hr 09/05/20 09/05/20 09/05/20 12:00 12:15 12:30 Temperature 102.3 F H Pulse Rate 131 H 101 H 108 H Pulse Rate [ From Monitor] Respiratory 30 H 30 H 30 H Rate Blood Pressure 94/48 99/50 95/46 O2 Sat by Pulse 98 99 99 Oximetry 09/05/20 09/05/20 09/05/20 12:36 12:45 13:00 Temperature Pulse Rate 101 H 115 H 123 H Pulse Rate [ From Monitor] Respiratory 30 H 30 H Rate Blood Pressure 99/50 101/49 98/42 O2 Sat by Pulse 99 99 100 Oximetry 09/05/20 09/05/20 09/05/20 13:15 13:30 13:45 Temperature Pulse Rate 106 H 120 H 109 H Pulse Rate [ From Monitor] Respiratory 30 H 23 30 H Rate Blood Pressure 101/48 98/51 94/46 O2 Sat by Pulse 100 100 100 Oximetry 09/05/20 09/05/20 09/05/20 14:00 14:15 14:30 Temperature Pulse Rate 100 H 119 H 109 H Pulse Rate [ From Monitor] Respiratory 30 H 27 H 24 Rate Blood Pressure 93/51 93/44 96/46 O2 Sat by Pulse 100 100 99 Oximetry 09/05/20 09/05/20 09/05/20 14:45 15:00 15:16 Temperature Pulse Rate 119 H 105 H 101 H Pulse Rate [ From Monitor] Respiratory 29 H 16 30 H Rate Blood Pressure 96/48 93/49 100/44 O2 Sat by Pulse 100 100 100 Oximetry 09/05/20 09/05/20 09/05/20 15:30 15:45 16:00 Temperature 99.9 F H Pulse Rate 98 H 91 H 108 H Pulse Rate [ From Monitor] Respiratory 24 30 H 30 H Rate Blood Pressure 108/48 110/52 113/53 O2 Sat by Pulse 100 100 100 Oximetry 09/05/20 09/05/20 09/05/20 16:16 16:20 16:30 Temperature Pulse Rate 123 H 109 H 100 H Pulse Rate [ From Monitor] Respiratory 30 H 30 H Rate Blood Pressure 85/44 85/44 121/55 O2 Sat by Pulse 100 100 100 Oximetry 09/05/20 09/05/20 09/05/20 16:45 17:00 17:16 Temperature Pulse Rate 111 H 107 H 103 H Pulse Rate [ From Monitor] Respiratory 30 H 30 H 30 H Rate Blood Pressure 88/52 94/55 92/46 O2 Sat by Pulse 100 100 100 Oximetry 09/05/20 09/05/20 09/05/20 17:30 17:46 18:00 Temperature Pulse Rate 107 H 109 H 113 H Pulse Rate [ From Monitor] Respiratory 25 H 30 H 30 H Rate Blood Pressure 92/46 96/52 95/49 O2 Sat by Pulse 100 100 100 Oximetry 09/05/20 09/05/20 09/05/20 18:15 18:30 18:45 Temperature Pulse Rate 106 H 101 H 103 H Pulse Rate [ From Monitor] Respiratory 23 30 H 30 H Rate Blood Pressure 93/55 105/53 100/47 O2 Sat by Pulse 100 100 100 Oximetry 09/05/20 09/05/20 09/05/20 19:00 19:16 19:30 Temperature Pulse Rate 103 H 100 H 100 H Pulse Rate [ From Monitor] Respiratory 30 H 30 H 30 H Rate Blood Pressure 107/48 114/55 126/91 O2 Sat by Pulse 100 100 100 Oximetry 09/05/20 09/05/20 09/05/20 19:46 20:00 20:15 Temperature 100.2 F H Pulse Rate 99 H 96 H 97 H Pulse Rate [ 102 H From Monitor] Respiratory 30 H 30 H 30 H Rate Blood Pressure 123/69 128/67 131/59 O2 Sat by Pulse 100 100 100 Oximetry 09/05/20 09/05/20 09/05/20 20:30 20:45 20:55 Temperature Pulse Rate 100 H 113 H 99 H Pulse Rate [ From Monitor] Respiratory 30 H 30 H Rate Blood Pressure 131/59 123/67 105/47 O2 Sat by Pulse 100 100 100 Oximetry 09/05/20 09/05/20 09/05/20 21:00 21:15 21:30 Temperature Pulse Rate 101 H 92 H 94 H Pulse Rate [ From Monitor] Respiratory 30 H 29 H 29 H Rate Blood Pressure 123/67 134/59 129/59 O2 Sat by Pulse 100 100 100 Oximetry 09/05/20 09/05/20 09/05/20 21:45 22:00 22:15 Temperature Pulse Rate 109 H 92 H 106 H Pulse Rate [ From Monitor] Respiratory 29 H 30 H 30 H Rate Blood Pressure 138/60 130/67 121/63 O2 Sat by Pulse 100 100 100 Oximetry 09/05/20 09/05/20 09/05/20 22:30 22:46 23:00 Temperature Pulse Rate 116 H 100 H 105 H Pulse Rate [ From Monitor] Respiratory 30 H 29 H 30 H Rate Blood Pressure 122/54 121/63 124/71 O2 Sat by Pulse 100 100 100 Oximetry 09/05/20 23:44 Temperature 99.8 F H Pulse Rate Pulse Rate [ From Monitor] Respiratory Rate Blood Pressure O2 Sat by Pulse Oximetry General appearance: Present: no acute distress, well-nourished - EENT Eyes: PERRL, EOM intact ENT: hearing intact, clear oral mucosa Ears: bilateral: normal - Neck Neck: supple, normal ROM - Respiratory Respiratory effort: normal Respiratory: bilateral: CTA - Breasts Breasts: normal - Cardiovascular Rhythm: regular Heart Sounds: Present: S1 & S2. Absent: gallop, rub Extremities: pulses intact, No edema, normal color, Full ROM - Gastrointestinal General gastrointestinal: Present: soft, non-tender, non-distended, normal bowel sounds - Genitourinary Male genitourinary: normal - Integumentary Integumentary: clear, warm, dry - Musculoskeletal Musculoskeletal: 1, strength equal bilaterally - Neurologic Neurologic: moves all extremities - Psychiatric Psychiatric: memory intact, appropriate mood/affect, intact judgment & insight - Labs CBC & Chem 7: 09/04/20 07:25 09/05/20 07:17 Labs: Abnormal lab results 09/05/20 09/05/20 09/05/20 Range/Units 06:24 07:17 13:38 ABG pH 7.218 L (7.320-7.450) POC ABG pCO2 66.0 H (32.0-48.0) mmHg POC ABG pO2 45.8 L 79.1 L (83-108) mmHg ABG Hemoglobin 10.7 L 9.6 L (12.0-17.5) ABG Oxyhemoglobin 74.5 L (94-98) ABG Sodium 146.5 H 145.4 H (136.0-145.0) mmol/L ABG Chloride 115.0 H 117.0 H (98-107) mmol/L ABG Glucose 146 H 106 H (65-95) mg/dL Carboxyhemoglobin 0.1 L 0 L (0.5-1.5) Sodium 152 H (137-145) mmol/L Chloride 115.9 H (98-107) mmol/L Glucose 134 H (75-100) mg/dL POC Glucose (70-105) mg/dL AST 69 H (5-40) units/L Alkaline Phosphatase 168 H (35-129) units/L Total Protein 5.4 L (6.3-8.2) g/dL Albumin 2.7 L (3.9-5) g/dL Arterial Blood Glucose 146 H 106 H (65-95) mg/dL 09/05/20 Range/Units 17:27 ABG pH (7.320-7.450) POC ABG pCO2 (32.0-48.0) mmHg POC ABG pO2 (83-108) mmHg ABG Hemoglobin (12.0-17.5) ABG Oxyhemoglobin (94-98) ABG Sodium (136.0-145.0) mmol/L ABG Chloride (98-107) mmol/L ABG Glucose (65-95) mg/dL Carboxyhemoglobin (0.5-1.5) Sodium (137-145) mmol/L Chloride (98-107) mmol/L Glucose (75-100) mg/dL POC Glucose 124 H (70-105) mg/dL AST (5-40) units/L Alkaline Phosphatase (35-129) units/L Total Protein (6.3-8.2) g/dL Albumin (3.9-5) g/dL Arterial Blood Glucose (65-95) mg/dL
[2020-09-06] MEDS: NORepinephrine/NS 4 MG-250 ML 4 MG/250 ML BAG IV SCH (04:07)
[2020-09-06 04:31] LABS: ABG Base Excess -3.5 mmol/L (-2.0-3.0); ABG HCO3 19.9 mmol/L (20.0-26.0); ABG Methemoglobin 0.5 % (0.0-1.5); ABG Oxygen Saturation 99.2 % (95.0-99.0); ABG PCO2 29.5 mm Hg; ABG PH 7.446 pH Units (7.350-7.450); ABG PO2 184.9 mm Hg (80.0-90.0)
[2020-09-06] MEDS: AZTREONAM/NS 1 GM/50 ML 1 GM/50 ML VIAL IV SCH ×3 (06:15→21:05)
[2020-09-06] MEDS: VANCOMYCIN 1,500 MG in SODIUM CHLORIDE 0.9% 500 ML 500 ML IV SCH (06:15)
--- NOTE | 2020-09-06 06:51 | XRay Report ---
CHEST 1 VIEW INDICATION / CLINICAL INFORMATION: follow up respiratory failure. COMPARISON: 09/05/2020 FINDINGS: SUPPORT DEVICES: Stable, satisfactory device positioning. HEART / MEDIASTINUM: No significant abnormality. LUNGS / PLEURA: Bilateral pulmonary opacities appear slightly improved. No pneumothorax. ADDITIONAL FINDINGS: No significant additional findings. IMPRESSION: 1. Improving bilateral pulmonary opacities. Signer Name: Alena Leung MD Signed: 09/06/2020 6:46 AM Workstation Name: [id number]
[2020-09-06 08:38] LABS: Hemoglobin 7.8 gm/dl (11.8-15.2)
[2020-09-06 08:42] LABS: Hematocrit 24.3 % (35.5-45.6); Hemoglobin 7.8 gm/dl (11.8-15.2); Mean Corpuscular HGB Conc 32 % (32-34); Mean Corpuscular Volume 86 fl (84-94); Platelet Count 289 K/mm3 (140-440); Red Blood Count 2.83 M/mm3 (3.65-5.03); Red Cell Distribution Width 17.7 % (13.2-15.2)
[2020-09-06 08:58] LABS: BUN/Creatinine Ratio 22; Blood Urea Nitrogen 24 mg/dL (9-20); Calcium 7.7 mg/dL (8.4-10.2); Hemolysis Index 0
[2020-09-06] MEDS: LANSOPRAZOLE 30 MG SOLUTAB FEEDTUBE SCH (09:41)
[2020-09-06] MEDS: FOLIC ACID 1 MG TAB PO SCH (09:41)
[2020-09-06] MEDS: ENOXAPARIN 100 MG/1 ML INJ SUB-Q SCH ×2 (09:41→21:05)
[2020-09-06] MEDS: CILOSTAZOL 100 MG TAB PO SCH ×2 (09:42→21:05)
[2020-09-06] MEDS: ZINC SULFATE 220 MG CAP PO SCH ×2 (09:42→21:05)
[2020-09-06] MEDS: amLODIPine 10 MG TAB PO SCH (09:42)
[2020-09-06] MEDS: dexAMETHasone 4 MG/ML VIAL IV SCH (09:43)
[2020-09-06] MEDS: METOPROLOL TARTRATE 50 MG TAB PO SCH ×2 (09:43→21:06)
[2020-09-06] MEDS: ASCORBIC ACID 500 MG TAB PO SCH ×2 (09:44→21:05)
[2020-09-06] MEDS: THIAMINE 100 MG TAB PO SCH (09:45)
[2020-09-06] MEDS: CLOPIDOGREL 75 MG TAB PO SCH (09:45)
[2020-09-06] MEDS: fentaNYL DRIP Premix 2,000 MCG/100 ML BAG IV SCH (09:58)
--- NOTE | 2020-09-06 11:28 | Progress Note ---
Assessment and Plan Acute hypoxemic respiratory failure, on mechanical ventilatory support. COVID-19 infection. Bilateral pneumonia versus pulmonary edema. Severe sepsis with shock. Peripheral vascular disease. Anemia that is microcytic. History of alcohol abuse. Acute encephalopathy. History of obesity. History of coronary artery disease. History of gout. Hyperlipidemia. Hypertension, now hypotensive. Left lower extremity / left foot ulcer. - reduced rate to 25/min - reduced FiO2 to 55% - peep reduced to 10 earlier by RT - continue free water supplementation 250 mls q4h - continue daily SAT and SBT assessment as tolerated - continue care as below otherwise; - continue to wean supplemental oxygen for target O2 sat's > 92% acutely - VAP bundle addressed - continue lung protective strategies - continue bronchodilators with pulmonary hygiene per RT - wean per pulmonary driven protocols otherwise - continue accuchecks with glycemic control per SSI (While critically ill target blood glucose of 140-180 mg/dL; avoid hypoglycemia) - sedation prn for target RASS 0 to -1 - avoid nephrotoxins, renally dose all medications - accuchecks with glycemic control per SSI (While critically ill target blood glucose of 140-180 mg/dL; avoid hypoglycemia) - avoid benzodiazepine's, reduce the possibility of delirium - complete AB's per ID rec's - prn analgesia per CPOT score - Maintenance of sleep-wake cycle, avoid delirium - enteral nutritional support at goal rate as tolerated - G.I. & VTE prophylaxis - PT/OT/ROM exercises - continue mobility protocols for pressure ulcer prophylaxis - Monitor hemodynamics closely - continue other care per attending / other consultants - discharge planning ongoing concurrently COVID SPECIFIC INTERVENTIONS - complete Remdesivir as per ID/Pulmonary developed protocols (#4 of 5) - systemic steroids for severe COVID-19 infection empirically - follow repeat COVID tests results - zinc and vitamin C supplementation - Monitor inflammatory markers per facility protocol - ferritin, Ddimer, CRP - therapeutic anticoagulation per system Protocol based on d-dimer and clinical considerations - Continue contact and airborne isolation .... Re-evaluate in am & prn CONDITION: CRITICAL PROGNOSIS: GUARDED CODE STATUS: FULL CODE The high probability of a clinically significant, sudden or life-threatening deterioration of the [respiratory, cardiovascular, renal & neurologic] system(s) required my full and direct attention, intervention and personal management. The aggregate critical care time was [33] minutes without overlap. Time includes spent on; [x] Data Review and interpretation [x] Patient assessment and monitoring of vital signs [x] Documentation [x] Medication orders and management Subjective Date of service: 09/06/20 Principal diagnosis: Ac hypoxemic resp failure; COVID-19; Pneumonia; Sepsis; PVD; L. foot ulcer Interval history: Patient is seen today for: Acute hypoxemic respiratory failure; COVID-19 in fection; Bilateral pneumonia versus pulmonary edema; Severe sepsis with shock; Peripheral vascular disease; Acute encephalopathy; Left lower extremity / left foot ulcer. Seen and examined at bedside; 24hour events reviewed; nursing and respiratory care staff consulted; no adverse overnight events reported to me; resting peacefully in bed; doing better; FiO2 down to 60% with room to wean further; no emesis or overt aspiration; no high grade fevers Objective Vital Signs - 12hr 09/05/20 09/05/20 09/05/20 23:30 23:44 23:45 Temperature 99.8 F H Pulse Rate 112 H 89 Pulse Rate [ From Monitor] Respiratory 30 H 30 H Rate Blood Pressure 105/53 104/57 O2 Sat by Pulse 100 100 Oximetry 09/06/20 09/06/20 09/06/20 00:00 00:11 00:15 Temperature Pulse Rate 98 H 89 90 Pulse Rate [ 98 H From Monitor] Respiratory 30 H 30 H Rate Blood Pressure 107/50 107/50 116/55 O2 Sat by Pulse 100 100 100 Oximetry 09/06/20 09/06/20 09/06/20 00:30 00:45 01:00 Temperature Pulse Rate 106 H 97 H 97 H Pulse Rate [ From Monitor] Respiratory 30 H 30 H 30 H Rate Blood Pressure 109/56 111/66 115/49 O2 Sat by Pulse 100 100 100 Oximetry 09/06/20 09/06/20 09/06/20 01:16 01:30 01:45 Temperature Pulse Rate 129 H 99 H 114 H Pulse Rate [ From Monitor] Respiratory 30 H 30 H 30 H Rate Blood Pressure 113/57 110/61 113/58 O2 Sat by Pulse 100 100 100 Oximetry 09/06/20 09/06/20 09/06/20 02:00 02:15 02:30 Temperature Pulse Rate 105 H 97 H 96 H Pulse Rate [ From Monitor] Respiratory 30 H 30 H 30 H Rate Blood Pressure 113/58 112/56 118/65 O2 Sat by Pulse 100 100 100 Oximetry 09/06/20 09/06/20 09/06/20 02:45 03:10 03:15 Temperature Pulse Rate 114 H 98 H 106 H Pulse Rate [ From Monitor] Respiratory 30 H 30 H 30 H Rate Blood Pressure 111/62 109/62 O2 Sat by Pulse 100 100 100 Oximetry 09/06/20 09/06/20 09/06/20 03:30 03:45 04:00 Temperature 99.9 F H Pulse Rate 111 H 109 H 115 H Pulse Rate [ 115 H From Monitor] Respiratory 17 30 H 30 H Rate Blood Pressure 100/58 91/58 91/58 O2 Sat by Pulse 100 100 99 Oximetry 09/06/20 09/06/20 09/06/20 04:16 04:30 04:45 Temperature Pulse Rate 95 H 108 H 108 H Pulse Rate [ From Monitor] Respiratory 30 H 28 H 30 H Rate Blood Pressure 120/70 101/59 108/58 O2 Sat by Pulse 100 100 100 Oximetry 09/06/20 09/06/20 09/06/20 05:00 05:01 05:16 Temperature Pulse Rate 99 H 117 H Pulse Rate [ From Monitor] Respiratory 30 H 21 Rate Blood Pressure 103/62 115/59 O2 Sat by Pulse 100 100 100 Oximetry 09/06/20 09/06/20 09/06/20 05:30 05:46 06:00 Temperature Pulse Rate 102 H 94 H 115 H Pulse Rate [ From Monitor] Respiratory 21 22 22 Rate Blood Pressure 117/58 117/58 124/66 O2 Sat by Pulse 99 99 100 Oximetry 09/06/20 09/06/20 09/06/20 06:15 06:30 06:45 Temperature Pulse Rate 93 H 88 92 H Pulse Rate [ From Monitor] Respiratory 22 22 22 Rate Blood Pressure 122/64 111/56 105/56 O2 Sat by Pulse 97 97 97 Oximetry 09/06/20 09/06/20 09/06/20 07:00 07:15 07:30 Temperature Pulse Rate 89 91 H 116 H Pulse Rate [ From Monitor] Respiratory 22 22 22 Rate Blood Pressure 118/53 117/61 119/59 O2 Sat by Pulse 96 96 96 Oximetry 09/06/20 09/06/20 09/06/20 07:45 08:00 08:06 Temperature Pulse Rate 91 H 83 116 H Pulse Rate [ 88 From Monitor] Respiratory 21 30 H Rate Blood Pressure 113/61 125/60 119/59 O2 Sat by Pulse 96 100 96 Oximetry 09/06/20 09/06/20 09/06/20 08:15 08:30 08:45 Temperature Pulse Rate 94 H 92 H 89 Pulse Rate [ From Monitor] Respiratory 22 22 22 Rate Blood Pressure 116/66 123/61 104/56 O2 Sat by Pulse 100 95 94 Oximetry 09/06/20 09/06/20 09/06/20 09:00 09:15 09:30 Temperature Pulse Rate 95 H 93 H 82 Pulse Rate [ From Monitor] Respiratory 22 22 22 Rate Blood Pressure 110/60 109/58 111/60 O2 Sat by Pulse 87 Oximetry 09/06/20 09/06/20 09/06/20 09:42 09:43 09:45 Temperature Pulse Rate 100 H 81 79 Pulse Rate [ From Monitor] Respiratory 22 Rate Blood Pressure 111/60 111/60 108/57 O2 Sat by Pulse Oximetry 09/06/20 09/06/20 09/06/20 10:00 10:15 10:30 Temperature Pulse Rate 85 92 H 92 H Pulse Rate [ From Monitor] Respiratory 22 22 22 Rate Blood Pressure 118/61 118/57 117/61 O2 Sat by Pulse 93 95 96 Oximetry 09/06/20 09/06/20 10:45 11:00 Temperature Pulse Rate 88 84 Pulse Rate [ From Monitor] Respiratory 22 22 Rate Blood Pressure 116/59 113/58 O2 Sat by Pulse 98 96 Oximetry Constitutional: no acute distress, other (elderly obese male with mildly increased respiratory effort at rest on MVS) Eyes: non-icteric ENT: oropharynx moist, other (ETT 24 cm MONICA) Neck: supple, no lymphadenopathy, no JVD Effort: mildly labored Ascultation: Bilateral: diminished breath sounds, rales (improved) Percussion: Bilateral: not dull Cardiovascular: regular rate and rhythm Gastrointestinal: normoactive bowel sounds, soft, non-tender, non-distended (protuberant) Integumentary: normal (in areas i examined; please see [facility] notes for full description) Extremities: no cyanosis, pink and warm, pulses normal, no ischemia or petechiae Neurologic: non-focal exam (grossly), pupils equal and round, other (lethargic) Psychiatric: other (unable to assess) CBC and BMP: 09/06/20 07:29 09/06/20 07:29 ABG, PT/INR, D-dimer: ABG ABG pH 7.446 pH Units (7.350-7.450) 09/06/20 04:15 POC ABG pCO2 37.3 mmHg (32.0-48.0) 09/05/20 13:38 ABG pCO2 29.5 mm Hg 09/06/20 04:15 POC ABG pO2 79.1 mmHg (83-108) L 09/05/20 13:38 ABG pO2 184.9 mm Hg (80.0-90.0) H 09/06/20 04:15 POC ABG HCO3 21.2 09/05/20 13:38 ABG O2 Saturation 99.2 % (95.0-99.0) H 09/06/20 04:15 PT/INR, D-dimer PT 15.5 Sec. (12.2-14.9) H 09/02/20 15:55 INR 1.23 (0.87-1.13) H 09/02/20 15:55 D-Dimer 2186.40 ng/mlDDU (0-234) H 09/02/20 15:55 Abnormal lab findings: Abnormal Labs 08/15/20 08/15/20 08/15/20 08:49 10:40 10:40 WBC RBC 2.96 L Hgb 9.0 L Hct 25.8 L MCV MCH MCHC 35 H RDW 16.2 H Lymph % (Auto) [place] % (Auto) Eos % (Auto) Lymph # (Auto) Seg Neutrophils % Seg Neutrophils # PT INR APTT D-Dimer Heparin Anti-Xa Level ABG pH POC ABG pCO2 POC ABG pO2 ABG pO2 ABG HCO3 ABG O2 Saturation ABG Base Excess ABG Hemoglobin ABG Oxyhemoglobin ABG Sodium ABG Potassium ABG Chloride ABG Glucose Carboxyhemoglobin Sodium Potassium Chloride Carbon Dioxide BUN Creatinine 0.7 L Glucose 188 H POC Glucose 212 H Calcium 8.3 L Magnesium Ferritin AST Alkaline Phosphatase Lactate Dehydrogenase C-Reactive Protein Total Protein Albumin Arterial Blood Glucose Arterial Blood Ionized Calcium Urine WBC (Auto) Coronavirus (PCR) 08/15/20 08/15/20 08/16/20 14:00 Unknown 04:43 WBC RBC 3.28 L Hgb 9.6 L Hct 29.3 L MCV MCH MCHC RDW 16.6 H Lymph % (Auto) [place] % (Auto) Eos % (Auto) 4.9 H Lymph # (Auto) Seg Neutrophils % Seg Neutrophils # PT INR APTT D-Dimer Heparin Anti-Xa Level ABG pH POC ABG pCO2 POC ABG pO2 ABG pO2 ABG HCO3 ABG O2 Saturation ABG Base Excess ABG Hemoglobin ABG Oxyhemoglobin ABG Sodium ABG Potassium ABG Chloride ABG Glucose Carboxyhemoglobin Sodium Potassium Chloride Carbon Dioxide BUN 8 L Creatinine 0.6 L Glucose 115 H POC Glucose Calcium Magnesium Ferritin AST Alkaline Phosphatase Lactate Dehydrogenase C-Reactive Protein Total Protein Albumin Arterial Blood Glucose Arterial Blood Ionized Calcium Urine WBC (Auto) 31.0 H Coronavirus (PCR) 08/16/20 08/18/20 08/20/20 04:43 15:17 07:12 WBC RBC Hgb 9.1 L Hct 27.2 L MCV MCH MCHC RDW Lymph % (Auto) [place] % (Auto) Eos % (Auto) Lymph # (Auto) Seg Neutrophils % Seg Neutrophils # PT INR APTT D-Dimer Heparin Anti-Xa Level ABG pH POC ABG pCO2 POC ABG pO2 ABG pO2 ABG HCO3 ABG O2 Saturation ABG Base Excess ABG Hemoglobin ABG Oxyhemoglobin ABG Sodium ABG Potassium ABG Chloride ABG Glucose Carboxyhemoglobin Sodium 135 L Potassium Chloride 97.5 L Carbon Dioxide BUN Creatinine 0.5 L Glucose 153 H 135 H POC Glucose Calcium Magnesium Ferritin AST Alkaline Phosphatase Lactate Dehydrogenase C-Reactive Protein Total Protein Albumin Arterial Blood Glucose Arterial Blood Ionized Calcium Urine WBC (Auto) Coronavirus (PCR) 08/20/20 08/20/20 08/20/20 07:12 07:12 08:07 WBC RBC Hgb Hct MCV MCH MCHC RDW Lymph % (Auto) [place] % (Auto) Eos % (Auto) Lymph # (Auto) Seg Neutrophils % Seg Neutrophils # PT INR 1.15 H APTT D-Dimer Heparin Anti-Xa Level ABG pH POC ABG pCO2 POC ABG pO2 ABG pO2 ABG HCO3 ABG O2 Saturation ABG Base Excess ABG Hemoglobin ABG Oxyhemoglobin ABG Sodium ABG Potassium ABG Chloride ABG Glucose Carboxyhemoglobin Sodium Potassium Chloride Carbon Dioxide BUN Creatinine Glucose 113 H POC Glucose 108 H Calcium Magnesium Ferritin AST Alkaline Phosphatase Lactate Dehydrogenase C-Reactive Protein Total Protein Albumin Arterial Blood Glucose Arterial Blood Ionized Calcium Urine WBC (Auto) Coronavirus (PCR) 08/20/20 08/20/20 08/21/20 16:32 22:34 07:42 WBC RBC Hgb Hct MCV MCH MCHC RDW Lymph % (Auto) [place] % (Auto) Eos % (Auto) Lymph # (Auto) Seg Neutrophils % Seg Neutrophils # PT INR APTT D-Dimer Heparin Anti-Xa Level ABG pH POC ABG pCO2 POC ABG pO2 ABG pO2 ABG HCO3 ABG O2 Saturation ABG Base Excess ABG Hemoglobin ABG Oxyhemoglobin ABG Sodium ABG Potassium ABG Chloride ABG Glucose Carboxyhemoglobin Sodium Potassium Chloride Carbon Dioxide BUN Creatinine Glucose POC Glucose 107 H 139 H 115 H Calcium Magnesium Ferritin AST Alkaline Phosphatase Lactate Dehydrogenase C-Reactive Protein Total Protein Albumin Arterial Blood Glucose Arterial Blood Ionized Calcium Urine WBC (Auto) Coronavirus (PCR) 08/21/20 08/21/20 08/21/20 08:14 08:14 11:31 WBC RBC 3.08 L Hgb 8.9 L Hct 27.0 L MCV MCH MCHC RDW 16.7 H Lymph % (Auto) [place] % (Auto) Eos % (Auto) Lymph # (Auto) Seg Neutrophils % Seg Neutrophils # PT INR APTT D-Dimer Heparin Anti-Xa Level ABG pH POC ABG pCO2 POC ABG pO2 ABG pO2 ABG HCO3 ABG O2 Saturation ABG Base Excess ABG Hemoglobin ABG Oxyhemoglobin ABG Sodium ABG Potassium ABG Chloride ABG Glucose Carboxyhemoglobin Sodium 136 L Potassium Chloride Carbon Dioxide BUN Creatinine Glucose 129 H POC Glucose 132 H Calcium Magnesium Ferritin AST Alkaline Phosphatase Lactate Dehydrogenase C-Reactive Protein Total Protein Albumin Arterial Blood Glucose Arterial Blood Ionized Calcium Urine WBC (Auto) Coronavirus (PCR) 08/24/20 08/25/20 08/26/20 10:57 18:39 11:57 WBC RBC Hgb Hct MCV MCH MCHC RDW Lymph % (Auto) [place] % (Auto) Eos % (Auto) Lymph # (Auto) Seg Neutrophils % Seg Neutrophils # PT INR APTT D-Dimer Heparin Anti-Xa Level ABG pH POC ABG pCO2 POC ABG pO2 ABG pO2 ABG HCO3 ABG O2 Saturation ABG Base Excess ABG Hemoglobin ABG Oxyhemoglobin ABG Sodium ABG Potassium ABG Chloride ABG Glucose Carboxyhemoglobin Sodium Potassium Chloride Carbon Dioxide BUN Creatinine Glucose POC Glucose 126 H 120 H 127 H Calcium Magnesium Ferritin AST Alkaline Phosphatase Lactate Dehydrogenase C-Reactive Protein Total Protein Albumin Arterial Blood Glucose Arterial Blood Ionized Calcium Urine WBC (Auto) Coronavirus (PCR) 08/26/20 08/26/20 08/28/20 18:44 23:31 19:34 WBC RBC 3.09 L Hgb 8.7 L Hct 25.5 L MCV 82 L MCH MCHC RDW 17.1 H Lymph % (Auto) [place] % (Auto) 9.1 H Eos % (Auto) Lymph # (Auto) 0.8 L Seg Neutrophils % 71.7 H Seg Neutrophils # PT INR APTT D-Dimer Heparin Anti-Xa Level ABG pH POC ABG pCO2 POC ABG pO2 ABG pO2 ABG HCO3 ABG O2 Saturation ABG Base Excess ABG Hemoglobin ABG Oxyhemoglobin ABG Sodium ABG Potassium ABG Chloride ABG Glucose Carboxyhemoglobin Sodium Potassium Chloride Carbon Dioxide BUN Creatinine Glucose POC Glucose 125 H 115 H Calcium Magnesium Ferritin AST Alkaline Phosphatase Lactate Dehydrogenase C-Reactive Protein Total Protein Albumin Arterial Blood Glucose Arterial Blood Ionized Calcium Urine WBC (Auto) Coronavirus (PCR) 08/28/20 08/28/20 08/29/20 19:34 22:16 08:06 WBC RBC Hgb Hct MCV MCH MCHC RDW Lymph % (Auto) [place] % (Auto) Eos % (Auto) Lymph # (Auto) Seg Neutrophils % Seg Neutrophils # PT INR APTT D-Dimer Heparin Anti-Xa Level ABG pH POC ABG pCO2 POC ABG pO2 ABG pO2 ABG HCO3 ABG O2 Saturation ABG Base Excess ABG Hemoglobin ABG Oxyhemoglobin ABG Sodium ABG Potassium ABG Chloride ABG Glucose Carboxyhemoglobin Sodium 130 L Potassium 2.6 L* Chloride 96.4 L Carbon Dioxide BUN Creatinine Glucose 119 H POC Glucose 110 H 119 H Calcium 7.8 L Magnesium Ferritin AST Alkaline Phosphatase Lactate Dehydrogenase C-Reactive Protein Total Protein Albumin Arterial Blood Glucose Arterial Blood Ionized Calcium Urine WBC (Auto) Coronavirus (PCR) 08/29/20 08/29/20 08/29/20 12:13 16:37 17:38 WBC RBC Hgb Hct MCV MCH MCHC RDW Lymph % (Auto) [place] % (Auto) Eos % (Auto) Lymph # (Auto) Seg Neutrophils % Seg Neutrophils # PT INR APTT D-Dimer Heparin Anti-Xa Level ABG pH POC ABG pCO2 POC ABG pO2 ABG pO2 ABG HCO3 ABG O2 Saturation ABG Base Excess ABG Hemoglobin ABG Oxyhemoglobin ABG Sodium ABG Potassium ABG Chloride ABG Glucose Carboxyhemoglobin Sodium 133 L Potassium 3.0 L Chloride 97.9 L Carbon Dioxide 21 L BUN Creatinine Glucose 111 H POC Glucose 109 H 106 H Calcium 8.3 L Magnesium 1.30 L Ferritin AST Alkaline Phosphatase Lactate Dehydrogenase C-Reactive Protein Total Protein Albumin Arterial Blood Glucose Arterial Blood Ionized Calcium Urine WBC (Auto) Coronavirus (PCR) 08/29/20 08/29/20 08/29/20 19:21 19:21 19:21 WBC RBC Hgb Hct MCV MCH MCHC RDW Lymph % (Auto) [place] % (Auto) Eos % (Auto) Lymph # (Auto) Seg Neutrophils % Seg Neutrophils # PT INR APTT D-Dimer 688.12 H Heparin Anti-Xa Level ABG pH POC ABG pCO2 POC ABG pO2 ABG pO2 ABG HCO3 ABG O2 Saturation ABG Base Excess ABG Hemoglobin ABG Oxyhemoglobin ABG Sodium ABG Potassium ABG Chloride ABG Glucose Carboxyhemoglobin Sodium Potassium 3.1 L Chloride Carbon Dioxide BUN Creatinine Glucose POC Glucose Calcium Magnesium 1.50 L Ferritin 1476.0 H AST Alkaline Phosphatase Lactate Dehydrogenase C-Reactive Protein Total Protein Albumin Arterial Blood Glucose Arterial Blood Ionized Calcium Urine WBC (Auto) Coronavirus (PCR) 08/29/20 08/29/20 08/31/20 19:21 Unknown 04:30 WBC RBC 3.12 L Hgb 9.1 L Hct 25.7 L MCV 83 L MCH MCHC 35 H RDW 17.4 H Lymph % (Auto) [place] % (Auto) 9.4 H Eos % (Auto) Lymph # (Auto) Seg Neutrophils % Seg Neutrophils # PT INR APTT D-Dimer Heparin Anti-Xa Level ABG pH POC ABG pCO2 POC ABG pO2 ABG pO2 ABG HCO3 ABG O2 Saturation ABG Base Excess ABG Hemoglobin ABG Oxyhemoglobin ABG Sodium ABG Potassium ABG Chloride ABG Glucose Carboxyhemoglobin Sodium Potassium Chloride Carbon Dioxide BUN Creatinine Glucose POC Glucose Calcium Magnesium Ferritin AST Alkaline Phosphatase Lactate Dehydrogenase 373 H C-Reactive Protein 18.30 H Total Protein Albumin Arterial Blood Glucose Arterial Blood Ionized Calcium Urine WBC (Auto) Coronavirus (PCR) Positive A 08/31/20 09/02/20 09/02/20 04:30 06:28 06:49 WBC RBC Hgb Hct MCV MCH MCHC RDW Lymph % (Auto) [place] % (Auto) Eos % (Auto) Lymph # (Auto) Seg Neutrophils % Seg Neutrophils # PT INR APTT D-Dimer Heparin Anti-Xa Level ABG pH POC ABG pCO2 26.2 L POC ABG pO2 82.2 L ABG pO2 ABG HCO3 ABG O2 Saturation ABG Base Excess ABG Hemoglobin 10.1 L ABG Oxyhemoglobin ABG Sodium 134.5 L ABG Potassium 3.2 L ABG Chloride ABG Glucose 127 H Carboxyhemoglobin 0.3 L Sodium 134 L Potassium 3.4 L Chloride Carbon Dioxide BUN Creatinine Glucose 129 H POC Glucose 109 H Calcium 8.0 L Magnesium Ferritin AST Alkaline Phosphatase Lactate Dehydrogenase C-Reactive Protein Total Protein Albumin Arterial Blood Glucose 127 H Arterial Blood Ionized Calcium 4.5 L Urine WBC (Auto) Coronavirus (PCR) 09/02/20 09/02/20 09/02/20 11:32 15:55 15:55 WBC RBC Hgb Hct MCV MCH MCHC RDW Lymph % (Auto) [place] % (Auto) Eos % (Auto) Lymph # (Auto) Seg Neutrophils % Seg Neutrophils # PT 15.5 H INR 1.23 H APTT 50.2 H D-Dimer 2186.40 H Heparin Anti-Xa Level ABG pH POC ABG pCO2 POC ABG pO2 ABG pO2 ABG HCO3 ABG O2 Saturation ABG Base Excess ABG Hemoglobin ABG Oxyhemoglobin ABG Sodium ABG Potassium ABG Chloride ABG Glucose Carboxyhemoglobin Sodium Potassium Chloride Carbon Dioxide 21 L BUN 30 H Creatinine 1.6 H Glucose 125 H POC Glucose 112 H Calcium 7.8 L Magnesium Ferritin AST Alkaline Phosphatase Lactate Dehydrogenase C-Reactive Protein Total Protein Albumin Arterial Blood Glucose Arterial Blood Ionized Calcium Urine WBC (Auto) Coronavirus (PCR) 09/02/20 09/02/20 09/02/20 15:55 15:55 17:34 WBC 11.2 H RBC 2.94 L Hgb 8.1 L Hct 24.3 L MCV 83 L MCH 27 L MCHC RDW 17.7 H Lymph % (Auto) 12.7 L [place] % (Auto) Eos % (Auto) Lymph # (Auto) Seg Neutrophils % 82.5 H Seg Neutrophils # 9.3 H PT INR APTT D-Dimer Heparin Anti-Xa Level ABG pH POC ABG pCO2 POC ABG pO2 ABG pO2 ABG HCO3 ABG O2 Saturation ABG Base Excess ABG Hemoglobin ABG Oxyhemoglobin ABG Sodium ABG Potassium ABG Chloride ABG Glucose Carboxyhemoglobin Sodium Potassium Chloride Carbon Dioxide BUN Creatinine Glucose POC Glucose 127 H Calcium Magnesium Ferritin 1892.0 H AST Alkaline Phosphatase Lactate Dehydrogenase C-Reactive Protein Total Protein Albumin Arterial Blood Glucose Arterial Blood Ionized Calcium Urine WBC (Auto) Coronavirus (PCR) 09/03/20 09/03/20 09/03/20 07:13 16:40 23:40 WBC RBC Hgb Hct MCV MCH MCHC RDW Lymph % (Auto) [place] % (Auto) Eos % (Auto) Lymph # (Auto) Seg Neutrophils % Seg Neutrophils # PT INR APTT D-Dimer Heparin Anti-Xa Level 0.88 H ABG pH POC ABG pCO2 POC ABG pO2 ABG pO2 ABG HCO3 ABG O2 Saturation ABG Base Excess ABG Hemoglobin ABG Oxyhemoglobin ABG Sodium ABG Potassium ABG Chloride ABG Glucose Carboxyhemoglobin Sodium Potassium 3.2 L Chloride 109.7 H Carbon Dioxide BUN 24 H Creatinine Glucose 142 H POC Glucose 220 H Calcium 8.2 L Magnesium Ferritin AST 75 H Alkaline Phosphatase Lactate Dehydrogenase C-Reactive Protein Total Protein 5.8 L Albumin 2.7 L Arterial Blood Glucose Arterial Blood Ionized Calcium Urine WBC (Auto) Coronavirus (PCR) 09/04/20 09/04/20 09/04/20 07:25 07:25 11:57 WBC RBC Hgb 9.0 L Hct 27.9 L MCV MCH MCHC RDW Lymph % (Auto) [place] % (Auto) Eos % (Auto) Lymph # (Auto) Seg Neutrophils % Seg Neutrophils # PT INR APTT D-Dimer Heparin Anti-Xa Level ABG pH POC ABG pCO2 POC ABG pO2 ABG pO2 ABG HCO3 ABG O2 Saturation ABG Base Excess ABG Hemoglobin ABG Oxyhemoglobin ABG Sodium ABG Potassium ABG Chloride ABG Glucose Carboxyhemoglobin Sodium 148 H Potassium Chloride 116.9 H Carbon Dioxide BUN Creatinine Glucose 129 H POC Glucose 113 H Calcium Magnesium Ferritin AST 93 H Alkaline Phosphatase 134 H Lactate Dehydrogenase C-Reactive Protein Total Protein 6.0 L Albumin 2.6 L Arterial Blood Glucose Arterial Blood Ionized Calcium Urine WBC (Auto) Coronavirus (PCR) 09/05/20 09/05/20 09/05/20 06:24 07:17 13:38 WBC RBC Hgb Hct MCV MCH MCHC RDW Lymph % (Auto) [place] % (Auto) Eos % (Auto) Lymph # (Auto) Seg Neutrophils % Seg Neutrophils # PT INR APTT D-Dimer Heparin Anti-Xa Level ABG pH 7.218 L POC ABG pCO2 66.0 H POC ABG pO2 45.8 L 79.1 L ABG pO2 ABG HCO3 ABG O2 Saturation ABG Base Excess ABG Hemoglobin 10.7 L 9.6 L ABG Oxyhemoglobin 74.5 L ABG Sodium 146.5 H 145.4 H ABG Potassium ABG Chloride 115.0 H 117.0 H ABG Glucose 146 H 106 H Carboxyhemoglobin 0.1 L 0 L Sodium 152 H Potassium Chloride 115.9 H Carbon Dioxide BUN Creatinine Glucose 134 H POC Glucose Calcium Magnesium Ferritin AST 69 H Alkaline Phosphatase 168 H Lactate Dehydrogenase C-Reactive Protein Total Protein 5.4 L Albumin 2.7 L Arterial Blood Glucose 146 H 106 H Arterial Blood Ionized Calcium Urine WBC (Auto) Coronavirus (PCR) 09/05/20 09/06/20 09/06/20 17:27 04:15 07:29 WBC RBC Hgb 7.8 L Hct 24.0 L MCV MCH MCHC RDW Lymph % (Auto) [place] % (Auto) Eos % (Auto) Lymph # (Auto) Seg Neutrophils % Seg Neutrophils # PT INR APTT D-Dimer Heparin Anti-Xa Level ABG pH POC ABG pCO2 POC ABG pO2 ABG pO2 184.9 H ABG HCO3 19.9 L ABG O2 Saturation 99.2 H ABG Base Excess -3.5 L ABG Hemoglobin 8.9 L ABG Oxyhemoglobin ABG Sodium ABG Potassium ABG Chloride ABG Glucose Carboxyhemoglobin Sodium Potassium Chloride Carbon Dioxide BUN Creatinine Glucose POC Glucose 124 H Calcium Magnesium Ferritin AST Alkaline Phosphatase Lactate Dehydrogenase C-Reactive Protein Total Protein Albumin Arterial Blood Glucose Arterial Blood Ionized Calcium Urine WBC (Auto) Coronavirus (PCR) 09/06/20 09/06/20 07:29 07:29 WBC 11.3 H RBC 2.83 L Hgb 7.8 L Hct 24.3 L MCV MCH MCHC RDW 17.7 H Lymph % (Auto) [place] % (Auto) Eos % (Auto) Lymph # (Auto) Seg Neutrophils % Seg Neutrophils # PT INR APTT D-Dimer Heparin Anti-Xa Level ABG pH POC ABG pCO2 POC ABG pO2 ABG pO2 ABG HCO3 ABG O2 Saturation ABG Base Excess ABG Hemoglobin ABG Oxyhemoglobin ABG Sodium ABG Potassium ABG Chloride ABG Glucose Carboxyhemoglobin Sodium 151 H Potassium Chloride 117.6 H Carbon Dioxide BUN 24 H Creatinine Glucose 159 H POC Glucose Calcium 7.7 L Magnesium Ferritin AST Alkaline Phosphatase Lactate Dehydrogenase C-Reactive Protein Total Protein Albumin Arterial Blood Glucose Arterial Blood Ionized Calcium Urine WBC (Auto) Coronavirus (PCR) Chest x-ray: image reviewed (improving bilateral infiltrates; tubes and lines in good position) Allied health notes reviewed: nursing
[2020-09-06] MEDS ORDERED: SODIUM BICARBONATE 325 MG TAB FEEDTUBE PRN (11:37)
[2020-09-06] MEDS ORDERED: LIPASE 10,500/PROTEASE 25,000/AMYLASE 43,750 (UNITS) DR CAP FEEDTUBE PRN (11:37)
[2020-09-06] MEDS ORDERED: SIMPLE SYRUP 15 ML FEEDTUBE PRN ×2 (11:37)
--- NOTE | 2020-09-06 12:41 | Progress Note ---
Assessment and Plan Cultures: 08/16/2020 SARS CoV2 PCR: Negative 08/29/2020 SARS CoV2 PCR: Positive 08/15/2020 urine culture: No growth 08/24/2020 blood culture: No growth 08/28/2020 blood culture: No growth 08/28/2020 urine culture: No growth A/P: 64-year-old male with hypertension, coronary artery disease, peripheral vascular disease, gout, alcohol dependence was admitted to the hospital on 08/15/2020 due to bleeding from his left foot which is a site of a previous surgery. Patient was noted to have wound dehiscence complicated by wound necrosis. Was seen by vascular surgery. He underwent a TMA. Due to fever, patient was receiving IV levofloxacin for UTI. COVID-19 test done on 08/29/2020 for placement reasons came back positive. Patient has been having intermittent fevers since 08/28/2020. 09/02/2020, a code MET was called due to tachypnea and labored respirations: #Shock: Probably from severe COVID-19. #Bilateral pneumonia: Secondary to COVID-19. Patient with severe hypoxia, elevated inflammatory markers. Recently had completed levofloxacin. #Acute hypoxic respiratory failure: Now intubated #Peripheral vascular disease, wound dehiscence and necrosis: underwent TMA by vascular surgery #Coronary artery disease, CHF Recs: -Agree with IV/PO Dexamethasone 6 mg daily x 10 days -Remdesivir ordered. Day 5 of 5 -Continue empiric antibiotics (Aztreonam, Levofloxacin, Vancomycin). Procal elevated. Continue for now. -prophylactic anticoagulation based on d-dimer per hospital protocol -trend ferritin, LDH, d-dimer, CRP every 2-3 days for risk stratification and to assess disease progression -Follow up MRSA nasal swab Tara Stockton MD [facility] ([facility]) O: [phone] F: [phone] Subjective Date of service: 09/06/20 Principal diagnosis: Ac hypoxemic resp failure; COVID-19; Pneumonia; Sepsis; PVD; L. foot ulcer Interval history: Afebrile, white count remains slightly elevated but stable. Remains mechanically ventilated. Imaging personally reviewed: CXR: improving bilateral infiltrates. Objective - Exam Narrative Exam: Physical Exam (reviewed in chart to minimize risk of transmission) Constitutional: deferred Head, Ears, Nose: deferred Eyes: deferred Neck: deferred Oral: deferred Cardiovascular: deferred Respiratory: deferred GI: deferred Musculoskeletal: deferred Skin: deferred Hem/Lymphatic: deferred Psych: deferred Neurological: deferred - Constitutional Vitals: Vital Signs Temp Pulse Resp BP Pulse Ox 99.9 F H 90 22 120/63 96 09/06/20 04:00 09/06/20 12:15 09/06/20 12:15 09/06/20 12:15 09/06/20 12:15 Temperature -Last 24 Hours Temperature 99.9 F Temperature 99.8 F Temperature 100.2 F Temperature 99.9 F - Labs CBC & Chem 7: 09/06/20 07:29 09/06/20 07:29 Labs: Abnormal lab results 09/05/20 09/05/20 09/06/20 Range/Units 13:38 17:27 04:15 WBC (4.5-11.0) K/mm3 RBC (3.65-5.03) M/mm3 Hgb (11.8-15.2) gm/dl Hct (35.5-45.6) % RDW (13.2-15.2) % POC ABG pO2 79.1 L (83-108) mmHg ABG pO2 184.9 H (80.0-90.0) mm Hg ABG HCO3 19.9 L (20.0-26.0) mmol/L ABG O2 Saturation 99.2 H (95.0-99.0) % ABG Base Excess -3.5 L (-2.0-3.0) mmol/L ABG Hemoglobin 9.6 L 8.9 L (12.0-17.5) ABG Sodium 145.4 H (136.0-145.0) mmol/L ABG Chloride 117.0 H (98-107) mmol/L ABG Glucose 106 H (65-95) mg/dL Carboxyhemoglobin 0 L (0.5-1.5) Sodium (137-145) mmol/L Chloride (98-107) mmol/L BUN (9-20) mg/dL Glucose (75-100) mg/dL POC Glucose 124 H (70-105) mg/dL Calcium (8.4-10.2) mg/dL Arterial Blood Glucose 106 H (65-95) mg/dL 09/06/20 09/06/20 09/06/20 Range/Units 07:29 07:29 07:29 WBC 11.3 H (4.5-11.0) K/mm3 RBC 2.83 L (3.65-5.03) M/mm3 Hgb 7.8 L 7.8 L (11.8-15.2) gm/dl Hct 24.0 L 24.3 L (35.5-45.6) % RDW 17.7 H (13.2-15.2) % POC ABG pO2 (83-108) mmHg ABG pO2 (80.0-90.0) mm Hg ABG HCO3 (20.0-26.0) mmol/L ABG O2 Saturation (95.0-99.0) % ABG Base Excess (-2.0-3.0) mmol/L ABG Hemoglobin (12.0-17.5) ABG Sodium (136.0-145.0) mmol/L ABG Chloride (98-107) mmol/L ABG Glucose (65-95) mg/dL Carboxyhemoglobin (0.5-1.5) Sodium 151 H (137-145) mmol/L Chloride 117.6 H (98-107) mmol/L BUN 24 H (9-20) mg/dL Glucose 159 H (75-100) mg/dL POC Glucose (70-105) mg/dL Calcium 7.7 L (8.4-10.2) mg/dL Arterial Blood Glucose (65-95) mg/dL 09/06/20 Range/Units 12:02 WBC (4.5-11.0) K/mm3 RBC (3.65-5.03) M/mm3 Hgb (11.8-15.2) gm/dl Hct (35.5-45.6) % RDW (13.2-15.2) % POC ABG pO2 (83-108) mmHg ABG pO2 (80.0-90.0) mm Hg ABG HCO3 (20.0-26.0) mmol/L ABG O2 Saturation (95.0-99.0) % ABG Base Excess (-2.0-3.0) mmol/L ABG Hemoglobin (12.0-17.5) ABG Sodium (136.0-145.0) mmol/L ABG Chloride (98-107) mmol/L ABG Glucose (65-95) mg/dL Carboxyhemoglobin (0.5-1.5) Sodium (137-145) mmol/L Chloride (98-107) mmol/L BUN (9-20) mg/dL Glucose (75-100) mg/dL POC Glucose 158 H (70-105) mg/dL Calcium (8.4-10.2) mg/dL Arterial Blood Glucose (65-95) mg/dL
[2020-09-06] MEDS ORDERED: LORazepam 2 MG/ML VIAL IV PRN (17:25)
[2020-09-06] MEDS: REMDESIVIR 100 MG in SODIUM CHLORIDE 0.9% 250ML 250 ML IV SCH (21:06)
[2020-09-06] MEDS: SODIUM CHLORIDE 0.9% 50 ML IVPB IV SCH (21:08)
[2020-09-07] MEDS: fentaNYL DRIP Premix 2,000 MCG/100 ML BAG IV SCH (03:15)
--- NOTE | 2020-09-07 04:22 | XRay Report ---
CHEST 1 VIEW INDICATION / CLINICAL INFORMATION: follow up respiratory failure. COMPARISON: 09/06/2020 FINDINGS: SUPPORT DEVICES: Stable, satisfactory device positioning. HEART / MEDIASTINUM: Stable. LUNGS / PLEURA: Trace bilateral pulmonary opacities appear grossly stable since yesterday's exam. No pneumothorax. ADDITIONAL FINDINGS: No significant additional findings. IMPRESSION: 1. Stable appearance of the chest radiograph. Signer Name: Alena Leung MD Signed: 09/07/2020 4:18 AM Workstation Name: [id number]
--- NOTE | 2020-09-07 06:04 | Progress Note ---
Assessment and Plan Assessment and Plan Assessment and plan: Patient is anxious to go home. Informed him that we are waiting for subacute rehab/SNF placement formalities Patient had lucas PCR test done today in preparation to placement to [facility] versus [facility]acute Covid test came back positive --[id number]; 08/29/2020 --Sepsis secondary to UTI/febrile illness T-max 101 F Antipyretics, continue Levaquin, Contact and droplet isolation Inflammatory markers, ID consult if she has already seen the patient Blood cultures , urine cultures negative to date plenty oral fluids, supportive care -- Necrosis of surgical wound h/o TMA on 07/30 he presented with increased bleeding from the wound Vascular consulted for further mx -- Peripheral vascular disease of lower extremity LLE revascularization done on 07/18 and 07/24 Continue antiplatelets and statin -- HTN (hypertension) continue antihypertensives --CAD (coronary artery disease) On Plavix, statin -- CHF (congestive heart failure), chronic diastolic and compensated 2D echo showed preserved EF We will hold the Lasix for now --Urinary retention, status post Renae placed on last admission Likely from BPH, urology f/u outpt --Sepsis secondary to UTI, started on levaquin --Obesity; BMI 33.6, patient needs weight reduction when medically stable -- DVT prophylaxis;On Heparin Subjective Date of service: 09/06/20 Principal diagnosis: Ac hypoxemic resp failure; COVID-19; Pneumonia; Sepsis; PVD; L. foot ulcer Objective - Constitutional Vitals: Vital Signs - 12hr 09/06/20 09/06/20 09/06/20 18:15 18:26 18:30 Temperature Pulse Rate 97 H 85 93 H Pulse Rate [ From Monitor] Respiratory 22 22 Rate Blood Pressure 114/64 120/57 127/64 O2 Sat by Pulse 90 95 92 Oximetry 09/06/20 09/06/20 09/06/20 18:45 19:00 19:15 Temperature Pulse Rate 99 H 97 H 98 H Pulse Rate [ From Monitor] Respiratory 22 22 21 Rate Blood Pressure 128/66 125/65 126/64 O2 Sat by Pulse 92 92 92 Oximetry 09/06/20 09/06/20 09/06/20 19:30 19:44 19:45 Temperature 98.4 F Pulse Rate 93 H 100 H Pulse Rate [ From Monitor] Respiratory 21 22 Rate Blood Pressure 125/58 126/60 O2 Sat by Pulse 92 93 Oximetry 09/06/20 09/06/20 09/06/20 20:00 20:15 20:30 Temperature Pulse Rate 93 H 95 H 92 H Pulse Rate [ 93 H From Monitor] Respiratory 21 22 22 Rate Blood Pressure 124/58 111/63 103/58 O2 Sat by Pulse 93 92 93 Oximetry 09/06/20 09/06/20 09/06/20 20:46 21:00 21:15 Temperature Pulse Rate 103 H 101 H 90 Pulse Rate [ From Monitor] Respiratory 22 22 21 Rate Blood Pressure 109/59 107/54 109/59 O2 Sat by Pulse 93 89 92 Oximetry 09/06/20 09/06/20 09/06/20 21:30 21:45 22:00 Temperature Pulse Rate 89 96 H 93 H Pulse Rate [ From Monitor] Respiratory 22 22 22 Rate Blood Pressure 116/55 125/63 121/56 O2 Sat by Pulse 94 93 92 Oximetry 09/06/20 09/06/20 09/06/20 22:15 22:30 22:45 Temperature Pulse Rate 100 H 84 97 H Pulse Rate [ From Monitor] Respiratory 22 22 22 Rate Blood Pressure 112/58 110/59 109/54 O2 Sat by Pulse 92 92 92 Oximetry 09/06/20 09/06/20 09/06/20 23:00 23:15 23:18 Temperature Pulse Rate 88 85 102 H Pulse Rate [ From Monitor] Respiratory 22 22 22 Rate Blood Pressure 112/58 106/54 106/54 O2 Sat by Pulse 92 91 92 Oximetry 09/06/20 09/06/20 09/06/20 23:30 23:45 23:52 Temperature 98.4 F Pulse Rate 98 H 112 H Pulse Rate [ From Monitor] Respiratory 22 22 Rate Blood Pressure 98/49 100/42 O2 Sat by Pulse 90 88 Oximetry 09/07/20 09/07/20 09/07/20 00:00 00:05 00:16 Temperature Pulse Rate 107 H 89 97 H Pulse Rate [ 107 H From Monitor] Respiratory 22 22 Rate Blood Pressure 121/62 121/62 128/60 O2 Sat by Pulse 90 92 91 Oximetry 09/07/20 09/07/20 09/07/20 00:30 00:45 01:00 Temperature Pulse Rate 96 H 92 H 114 H Pulse Rate [ From Monitor] Respiratory 22 22 22 Rate Blood Pressure 127/59 126/60 132/63 O2 Sat by Pulse 92 89 89 Oximetry 09/07/20 09/07/20 09/07/20 01:15 01:30 01:45 Temperature Pulse Rate 92 H 112 H 109 H Pulse Rate [ From Monitor] Respiratory 22 22 22 Rate Blood Pressure 125/57 131/57 112/55 O2 Sat by Pulse 91 92 91 Oximetry 09/07/20 09/07/20 09/07/20 02:00 02:15 02:30 Temperature Pulse Rate 115 H 101 H 119 H Pulse Rate [ From Monitor] Respiratory 22 22 21 Rate Blood Pressure 116/48 117/52 123/54 O2 Sat by Pulse 90 90 90 Oximetry 09/07/20 09/07/20 09/07/20 02:45 03:00 03:15 Temperature Pulse Rate 134 H 101 H 91 H Pulse Rate [ From Monitor] Respiratory 22 22 22 Rate Blood Pressure 127/63 128/59 128/60 O2 Sat by Pulse 91 91 88 Oximetry 09/07/20 09/07/20 09/07/20 03:30 03:36 03:46 Temperature 98.5 F Pulse Rate 104 H 99 H Pulse Rate [ From Monitor] Respiratory 21 18 Rate Blood Pressure 125/60 129/65 O2 Sat by Pulse 89 90 Oximetry 09/07/20 09/07/20 09/07/20 04:00 04:15 04:30 Temperature Pulse Rate 102 H 103 H 105 H Pulse Rate [ 102 H From Monitor] Respiratory 22 18 19 Rate Blood Pressure 123/59 129/78 117/61 O2 Sat by Pulse 90 91 90 Oximetry 09/07/20 09/07/20 04:45 05:03 Temperature Pulse Rate 112 H 104 H Pulse Rate [ From Monitor] Respiratory 21 Rate Blood Pressure 117/55 116/61 O2 Sat by Pulse 89 91 Oximetry General appearance: Present: no acute distress, well-nourished - EENT Eyes: PERRL, EOM intact ENT: hearing intact, clear oral mucosa Ears: bilateral: normal - Neck Neck: supple, normal ROM - Respiratory Respiratory effort: normal Respiratory: bilateral: CTA - Breasts Breasts: normal - Cardiovascular Rhythm: regular Heart Sounds: Present: S1 & S2. Absent: gallop, rub Extremities: pulses intact, No edema, normal color, Full ROM - Gastrointestinal General gastrointestinal: Present: soft, non-tender, non-distended, normal bowel sounds - Genitourinary Male genitourinary: normal - Integumentary Integumentary: clear, warm, dry - Musculoskeletal Musculoskeletal: 1, strength equal bilaterally - Neurologic Neurologic: moves all extremities - Psychiatric Psychiatric: memory intact, appropriate mood/affect, intact judgment & insight - Labs CBC & Chem 7: 09/06/20 07:29 09/06/20 07:29 Labs: Abnormal lab results 09/06/20 09/06/20 09/06/20 Range/Units 07:29 07:29 07:29 WBC 11.3 H (4.5-11.0) K/mm3 RBC 2.83 L (3.65-5.03) M/mm3 Hgb 7.8 L 7.8 L (11.8-15.2) gm/dl Hct 24.0 L 24.3 L (35.5-45.6) % RDW 17.7 H (13.2-15.2) % POC ABG pO2 (83-108) mmHg ABG Hemoglobin (12.0-17.5) ABG Chloride (98-107) mmol/L ABG Glucose (65-95) mg/dL Sodium 151 H (137-145) mmol/L Chloride 117.6 H (98-107) mmol/L BUN 24 H (9-20) mg/dL Glucose 159 H (75-100) mg/dL POC Glucose (70-105) mg/dL Calcium 7.7 L (8.4-10.2) mg/dL Arterial Blood Glucose (65-95) mg/dL 09/06/20 09/07/20 Range/Units 12:02 05:21 WBC (4.5-11.0) K/mm3 RBC (3.65-5.03) M/mm3 Hgb (11.8-15.2) gm/dl Hct (35.5-45.6) % RDW (13.2-15.2) % POC ABG pO2 46.0 L (83-108) mmHg ABG Hemoglobin 8.6 L (12.0-17.5) ABG Chloride 116.0 H (98-107) mmol/L ABG Glucose 238 H (65-95) mg/dL Sodium (137-145) mmol/L Chloride (98-107) mmol/L BUN (9-20) mg/dL Glucose (75-100) mg/dL POC Glucose 158 H (70-105) mg/dL Calcium (8.4-10.2) mg/dL Arterial Blood Glucose 238 H (65-95) mg/dL
[2020-09-07] MEDS: AZTREONAM/NS 1 GM/50 ML 1 GM/50 ML VIAL IV SCH ×3 (06:09→21:14)
[2020-09-07] MEDS: VANCOMYCIN 1,500 MG in SODIUM CHLORIDE 0.9% 500 ML 500 ML IV SCH ×2 (06:10→19:00)
[2020-09-07] MEDS: dexAMETHasone 4 MG/ML VIAL IV SCH (09:39)
[2020-09-07] MEDS: ASCORBIC ACID 500 MG TAB PO SCH ×2 (09:39→21:13)
[2020-09-07] MEDS: THIAMINE 100 MG TAB PO SCH (09:39)
[2020-09-07] MEDS: FOLIC ACID 1 MG TAB PO SCH (09:39)
[2020-09-07] MEDS: CLOPIDOGREL 75 MG TAB PO SCH (09:39)
[2020-09-07] MEDS: ZINC SULFATE 220 MG CAP PO SCH ×2 (09:39→21:13)
[2020-09-07] MEDS: LANSOPRAZOLE 30 MG SOLUTAB FEEDTUBE SCH (09:39)
[2020-09-07] MEDS: CILOSTAZOL 100 MG TAB PO SCH ×2 (09:40→21:35)
[2020-09-07] MEDS: ENOXAPARIN 100 MG/1 ML INJ SUB-Q SCH ×2 (09:40→21:14)
[2020-09-07] MEDS: amLODIPine 10 MG TAB PO SCH (09:40)
[2020-09-07] MEDS: METOPROLOL TARTRATE 50 MG TAB PO SCH ×2 (09:41→21:35)
--- NOTE | 2020-09-07 13:57 | Progress Note ---
Assessment and Plan Acute hypoxemic respiratory failure, on mechanical ventilatory support. COVID-19 infection. Bilateral pneumonia versus pulmonary edema. Severe sepsis with shock. Peripheral vascular disease. Anemia that is microcytic. History of alcohol abuse. Acute encephalopathy. History of obesity. History of coronary artery disease. History of gout. Hyperlipidemia. Hypertension, now hypotensive. Left lower extremity / left foot ulcer. - keep set rate at 25/min for now - keep peep at 10 - continue free water supplementation 250 mls q4h - continue daily SAT and SBT assessment as tolerated - continue care as below otherwise; - continue to wean supplemental oxygen for target O2 sat's > 92% acutely - VAP bundle addressed - continue lung protective strategies - continue bronchodilators with pulmonary hygiene per RT - wean per pulmonary driven protocols otherwise - continue accuchecks with glycemic control per SSI (While critically ill target blood glucose of 140-180 mg/dL; avoid hypoglycemia) - sedation prn for target RASS 0 to -1 - avoid nephrotoxins, renally dose all medications - accuchecks with glycemic control per SSI (While critically ill target blood glucose of 140-180 mg/dL; avoid hypoglycemia) - avoid benzodiazepine's, reduce the possibility of delirium - complete AB's per ID rec's - prn analgesia per CPOT score - Maintenance of sleep-wake cycle, avoid delirium - enteral nutritional support at goal rate as tolerated - G.I. & VTE prophylaxis - PT/OT/ROM exercises - continue mobility protocols for pressure ulcer prophylaxis - Monitor hemodynamics closely - continue other care per attending / other consultants - discharge planning ongoing concurrently COVID SPECIFIC INTERVENTIONS - completed Remdesivir as per ID/Pulmonary developed protocols - continue systemic steroids for severe COVID-19 infection empirically - follow repeat COVID tests results - zinc and vitamin C supplementation - Monitor inflammatory markers per facility protocol - ferritin, Ddimer, CRP - therapeutic anticoagulation per system Protocol based on d-dimer and clinical considerations - Continue contact and airborne isolation .... Re-evaluate in am & prn CONDITION: CRITICAL PROGNOSIS: GUARDED CODE STATUS: FULL CODE The high probability of a clinically significant, sudden or life-threatening deterioration of the [respiratory, cardiovascular, renal & neurologic] system(s) required my full and direct attention, intervention and personal management. The aggregate critical care time was [32] minutes without overlap. Time includes spent on; [x] Data Review and interpretation [x] Patient assessment and monitoring of vital signs [x] Documentation [x] Medication orders and management Subjective Date of service: 09/07/20 Principal diagnosis: Ac hypoxemic resp failure; COVID-19; Pneumonia; Sepsis; PVD; L. foot ulcer Interval history: Patient is seen today for: Acute hypoxemic respiratory failure; COVID-19 infection; Bilateral pneumonia versus pulmonary edema; Severe sepsis with shock; Peripheral vascular disease; Acute encephalopathy; Left lower extremity / left foot ulcer. Seen and examined at bedside; 24hour events reviewed; nursing and respiratory care staff consulted; no adverse overnight events reported to me; resting peacefully in bed; desaturated overnight and FiO2 increased but back down to 65% with O2 sats 97%; no emesis or overt aspiration; off Levophed now Objective Vital Signs - 12hr 09/07/20 09/07/20 09/07/20 02:00 02:15 02:30 Temperature Pulse Rate 115 H 101 H 119 H Pulse Rate [ From Monitor] Respiratory 22 22 21 Rate Blood Pressure 116/48 117/52 123/54 O2 Sat by Pulse 90 90 90 Oximetry 09/07/20 09/07/20 09/07/20 02:45 03:00 03:15 Temperature Pulse Rate 134 H 101 H 91 H Pulse Rate [ From Monitor] Respiratory 22 22 22 Rate Blood Pressure 127/63 128/59 128/60 O2 Sat by Pulse 91 91 88 Oximetry 09/07/20 09/07/20 09/07/20 03:30 03:36 03:46 Temperature 98.5 F Pulse Rate 104 H 99 H Pulse Rate [ From Monitor] Respiratory 21 18 Rate Blood Pressure 125/60 129/65 O2 Sat by Pulse 89 90 Oximetry 09/07/20 09/07/20 09/07/20 04:00 04:15 04:30 Temperature Pulse Rate 102 H 103 H 105 H Pulse Rate [ 102 H From Monitor] Respiratory 22 18 19 Rate Blood Pressure 123/59 129/78 117/61 O2 Sat by Pulse 90 91 90 Oximetry 09/07/20 09/07/20 09/07/20 04:45 05:00 05:03 Temperature Pulse Rate 112 H 110 H 104 H Pulse Rate [ From Monitor] Respiratory 21 21 Rate Blood Pressure 117/55 116/61 116/61 O2 Sat by Pulse 89 89 91 Oximetry 09/07/20 09/07/20 09/07/20 05:16 05:30 05:46 Temperature Pulse Rate 94 H 110 H 98 H Pulse Rate [ From Monitor] Respiratory 12 22 22 Rate Blood Pressure 129/57 135/67 140/67 O2 Sat by Pulse 89 92 93 Oximetry 09/07/20 09/07/20 09/07/20 06:00 06:15 06:30 Temperature Pulse Rate 101 H 95 H 98 H Pulse Rate [ From Monitor] Respiratory 22 23 19 Rate Blood Pressure 132/60 141/65 138/70 O2 Sat by Pulse 93 92 93 Oximetry 09/07/20 09/07/20 09/07/20 06:46 07:00 07:16 Temperature Pulse Rate 90 93 H 96 H Pulse Rate [ From Monitor] Respiratory 17 17 22 Rate Blood Pressure 146/69 134/64 119/59 O2 Sat by Pulse 94 92 92 Oximetry 09/07/20 09/07/20 09/07/20 07:30 07:38 07:45 Temperature Pulse Rate 92 H 95 H 91 H Pulse Rate [ From Monitor] Respiratory 21 16 Rate Blood Pressure 111/55 141/65 103/51 O2 Sat by Pulse 91 92 91 Oximetry 09/07/20 09/07/20 09/07/20 08:00 08:15 08:30 Temperature Pulse Rate 104 H 95 H 100 H Pulse Rate [ 95 H From Monitor] Respiratory 22 22 23 Rate Blood Pressure 112/54 112/54 118/64 O2 Sat by Pulse 91 91 92 Oximetry 09/07/20 09/07/20 09/07/20 08:45 09:00 09:16 Temperature Pulse Rate 84 94 H 85 Pulse Rate [ From Monitor] Respiratory 20 18 21 Rate Blood Pressure 121/58 110/63 115/56 O2 Sat by Pulse 92 92 92 Oximetry 09/07/20 09/07/20 09/07/20 09:30 09:40 09:41 Temperature Pulse Rate 81 84 91 H Pulse Rate [ From Monitor] Respiratory 22 Rate Blood Pressure 116/59 116/79 116/59 O2 Sat by Pulse 93 Oximetry 09/07/20 09/07/20 09/07/20 09:45 10:00 10:15 Temperature Pulse Rate 87 87 90 Pulse Rate [ From Monitor] Respiratory 24 22 22 Rate Blood Pressure 120/55 124/56 123/63 O2 Sat by Pulse 92 91 92 Oximetry 09/07/20 09/07/20 09/07/20 10:30 10:45 11:00 Temperature Pulse Rate 87 91 H 90 Pulse Rate [ From Monitor] Respiratory 22 22 22 Rate Blood Pressure 119/55 119/53 107/56 O2 Sat by Pulse 90 90 89 Oximetry 09/07/20 09/07/20 09/07/20 11:15 11:30 11:45 Temperature Pulse Rate 87 83 84 Pulse Rate [ From Monitor] Respiratory 22 22 22 Rate Blood Pressure 111/51 119/60 110/59 O2 Sat by Pulse 89 89 90 Oximetry 09/07/20 09/07/20 11:53 12:00 Temperature Pulse Rate 83 80 Pulse Rate [ 105 H From Monitor] Respiratory 22 Rate Blood Pressure 119/60 117/59 O2 Sat by Pulse 93 90 Oximetry Constitutional: no acute distress, other (elderly obese male with mildly increased respiratory effort at rest on MVS) Eyes: non-icteric ENT: oropharynx moist, other (ETT 24 cm MONICA) Neck: supple, no lymphadenopathy, no JVD Effort: mildly labored Ascultation: Bilateral: diminished breath sounds, rales (improved) Percussion: Bilateral: not dull Cardiovascular: regular rate and rhythm Gastrointestinal: normoactive bowel sounds, soft, non-tender, non-distended (protuberant) Integumentary: normal (in areas i examined; please see [facility] notes for full description) Extremities: no cyanosis, pink and warm, pulses normal, no ischemia or petechiae Neurologic: non-focal exam (grossly), pupils equal and round, other (lethargic) Psychiatric: other (unable to assess) CBC and BMP: 09/06/20 07:29 09/06/20 07:29 ABG, PT/INR, D-dimer: ABG ABG pH 7.408 (7.320-7.450) 09/07/20 05:21 POC ABG pCO2 41.0 mmHg (32.0-48.0) 09/07/20 05:21 ABG pCO2 29.5 mm Hg 09/06/20 04:15 POC ABG pO2 46.0 mmHg (83-108) L 09/07/20 05:21 ABG pO2 184.9 mm Hg (80.0-90.0) H 09/06/20 04:15 POC ABG HCO3 25.3 09/07/20 05:21 ABG O2 Saturation 99.2 % (95.0-99.0) H 09/06/20 04:15 PT/INR, D-dimer PT 15.5 Sec. (12.2-14.9) H 09/02/20 15:55 INR 1.23 (0.87-1.13) H 09/02/20 15:55 D-Dimer 2186.40 ng/mlDDU (0-234) H 09/02/20 15:55 Abnormal lab findings: Abnormal Labs 08/15/20 08/15/20 08/15/20 08:49 10:40 10:40 WBC RBC 2.96 L Hgb 9.0 L Hct 25.8 L MCV MCH MCHC 35 H RDW 16.2 H Lymph % (Auto) [place] % (Auto) Eos % (Auto) Lymph # (Auto) Seg Neutrophils % Seg Neutrophils # PT INR APTT D-Dimer Heparin Anti-Xa Level ABG pH POC ABG pCO2 POC ABG pO2 ABG pO2 ABG HCO3 ABG O2 Saturation ABG Base Excess ABG Hemoglobin ABG Oxyhemoglobin ABG Sodium ABG Potassium ABG Chloride ABG Glucose Carboxyhemoglobin Sodium Potassium Chloride Carbon Dioxide BUN Creatinine 0.7 L Glucose 188 H POC Glucose 212 H Calcium 8.3 L Magnesium Ferritin AST Alkaline Phosphatase Lactate Dehydrogenase C-Reactive Protein Total Protein Albumin Arterial Blood Glucose Arterial Blood Ionized Calcium Urine WBC (Auto) Coronavirus (PCR) 08/15/20 08/15/20 08/16/20 14:00 Unknown 04:43 WBC RBC 3.28 L Hgb 9.6 L Hct 29.3 L MCV MCH MCHC RDW 16.6 H Lymph % (Auto) [place] % (Auto) Eos % (Auto) 4.9 H Lymph # (Auto) Seg Neutrophils % Seg Neutrophils # PT INR APTT D-Dimer Heparin Anti-Xa Level ABG pH POC ABG pCO2 POC ABG pO2 ABG pO2 ABG HCO3 ABG O2 Saturation ABG Base Excess ABG Hemoglobin ABG Oxyhemoglobin ABG Sodium ABG Potassium ABG Chloride ABG Glucose Carboxyhemoglobin Sodium Potassium Chloride Carbon Dioxide BUN 8 L Creatinine 0.6 L Glucose 115 H POC Glucose Calcium Magnesium Ferritin AST Alkaline Phosphatase Lactate Dehydrogenase C-Reactive Protein Total Protein Albumin Arterial Blood Glucose Arterial Blood Ionized Calcium Urine WBC (Auto) 31.0 H Coronavirus (PCR) 08/16/20 08/18/20 08/20/20 04:43 15:17 07:12 WBC RBC Hgb 9.1 L Hct 27.2 L MCV MCH MCHC RDW Lymph % (Auto) [place] % (Auto) Eos % (Auto) Lymph # (Auto) Seg Neutrophils % Seg Neutrophils # PT INR APTT D-Dimer Heparin Anti-Xa Level ABG pH POC ABG pCO2 POC ABG pO2 ABG pO2 ABG HCO3 ABG O2 Saturation ABG Base Excess ABG Hemoglobin ABG Oxyhemoglobin ABG Sodium ABG Potassium ABG Chloride ABG Glucose Carboxyhemoglobin Sodium 135 L Potassium Chloride 97.5 L Carbon Dioxide BUN Creatinine 0.5 L Glucose 153 H 135 H POC Glucose Calcium Magnesium Ferritin AST Alkaline Phosphatase Lactate Dehydrogenase C-Reactive Protein Total Protein Albumin Arterial Blood Glucose Arterial Blood Ionized Calcium Urine WBC (Auto) Coronavirus (PCR) 08/20/20 08/20/20 08/20/20 07:12 07:12 08:07 WBC RBC Hgb Hct MCV MCH MCHC RDW Lymph % (Auto) [place] % (Auto) Eos % (Auto) Lymph # (Auto) Seg Neutrophils % Seg Neutrophils # PT INR 1.15 H APTT D-Dimer Heparin Anti-Xa Level ABG pH POC ABG pCO2 POC ABG pO2 ABG pO2 ABG HCO3 ABG O2 Saturation ABG Base Excess ABG Hemoglobin ABG Oxyhemoglobin ABG Sodium ABG Potassium ABG Chloride ABG Glucose Carboxyhemoglobin Sodium Potassium Chloride Carbon Dioxide BUN Creatinine Glucose 113 H POC Glucose 108 H Calcium Magnesium Ferritin AST Alkaline Phosphatase Lactate Dehydrogenase C-Reactive Protein Total Protein Albumin Arterial Blood Glucose Arterial Blood Ionized Calcium Urine WBC (Auto) Coronavirus (PCR) 08/20/20 08/20/20 08/21/20 16:32 22:34 07:42 WBC RBC Hgb Hct MCV MCH MCHC RDW Lymph % (Auto) [place] % (Auto) Eos % (Auto) Lymph # (Auto) Seg Neutrophils % Seg Neutrophils # PT INR APTT D-Dimer Heparin Anti-Xa Level ABG pH POC ABG pCO2 POC ABG pO2 ABG pO2 ABG HCO3 ABG O2 Saturation ABG Base Excess ABG Hemoglobin ABG Oxyhemoglobin ABG Sodium ABG Potassium ABG Chloride ABG Glucose Carboxyhemoglobin Sodium Potassium Chloride Carbon Dioxide BUN Creatinine Glucose POC Glucose 107 H 139 H 115 H Calcium Magnesium Ferritin AST Alkaline Phosphatase Lactate Dehydrogenase C-Reactive Protein Total Protein Albumin Arterial Blood Glucose Arterial Blood Ionized Calcium Urine WBC (Auto) Coronavirus (PCR) 08/21/20 08/21/20 08/21/20 08:14 08:14 11:31 WBC RBC 3.08 L Hgb 8.9 L Hct 27.0 L MCV MCH MCHC RDW 16.7 H Lymph % (Auto) [place] % (Auto) Eos % (Auto) Lymph # (Auto) Seg Neutrophils % Seg Neutrophils # PT INR APTT D-Dimer Heparin Anti-Xa Level ABG pH POC ABG pCO2 POC ABG pO2 ABG pO2 ABG HCO3 ABG O2 Saturation ABG Base Excess ABG Hemoglobin ABG Oxyhemoglobin ABG Sodium ABG Potassium ABG Chloride ABG Glucose Carboxyhemoglobin Sodium 136 L Potassium Chloride Carbon Dioxide BUN Creatinine Glucose 129 H POC Glucose 132 H Calcium Magnesium Ferritin AST Alkaline Phosphatase Lactate Dehydrogenase C-Reactive Protein Total Protein Albumin Arterial Blood Glucose Arterial Blood Ionized Calcium Urine WBC (Auto) Coronavirus (PCR) 08/24/20 08/25/20 08/26/20 10:57 18:39 11:57 WBC RBC Hgb Hct MCV MCH MCHC RDW Lymph % (Auto) [place] % (Auto) Eos % (Auto) Lymph # (Auto) Seg Neutrophils % Seg Neutrophils # PT INR APTT D-Dimer Heparin Anti-Xa Level ABG pH POC ABG pCO2 POC ABG pO2 ABG pO2 ABG HCO3 ABG O2 Saturation ABG Base Excess ABG Hemoglobin ABG Oxyhemoglobin ABG Sodium ABG Potassium ABG Chloride ABG Glucose Carboxyhemoglobin Sodium Potassium Chloride Carbon Dioxide BUN Creatinine Glucose POC Glucose 126 H 120 H 127 H Calcium Magnesium Ferritin AST Alkaline Phosphatase Lactate Dehydrogenase C-Reactive Protein Total Protein Albumin Arterial Blood Glucose Arterial Blood Ionized Calcium Urine WBC (Auto) Coronavirus (PCR) 08/26/20 08/26/20 08/28/20 18:44 23:31 19:34 WBC RBC 3.09 L Hgb 8.7 L Hct 25.5 L MCV 82 L MCH MCHC RDW 17.1 H Lymph % (Auto) [place] % (Auto) 9.1 H Eos % (Auto) Lymph # (Auto) 0.8 L Seg Neutrophils % 71.7 H Seg Neutrophils # PT INR APTT D-Dimer Heparin Anti-Xa Level ABG pH POC ABG pCO2 POC ABG pO2 ABG pO2 ABG HCO3 ABG O2 Saturation ABG Base Excess ABG Hemoglobin ABG Oxyhemoglobin ABG Sodium ABG Potassium ABG Chloride ABG Glucose Carboxyhemoglobin Sodium Potassium Chloride Carbon Dioxide BUN Creatinine Glucose POC Glucose 125 H 115 H Calcium Magnesium Ferritin AST Alkaline Phosphatase Lactate Dehydrogenase C-Reactive Protein Total Protein Albumin Arterial Blood Glucose Arterial Blood Ionized Calcium Urine WBC (Auto) Coronavirus (PCR) 08/28/20 08/28/20 08/29/20 19:34 22:16 08:06 WBC RBC Hgb Hct MCV MCH MCHC RDW Lymph % (Auto) [place] % (Auto) Eos % (Auto) Lymph # (Auto) Seg Neutrophils % Seg Neutrophils # PT INR APTT D-Dimer Heparin Anti-Xa Level ABG pH POC ABG pCO2 POC ABG pO2 ABG pO2 ABG HCO3 ABG O2 Saturation ABG Base Excess ABG Hemoglobin ABG Oxyhemoglobin ABG Sodium ABG Potassium ABG Chloride ABG Glucose Carboxyhemoglobin Sodium 130 L Potassium 2.6 L* Chloride 96.4 L Carbon Dioxide BUN Creatinine Glucose 119 H POC Glucose 110 H 119 H Calcium 7.8 L Magnesium Ferritin AST Alkaline Phosphatase Lactate Dehydrogenase C-Reactive Protein Total Protein Albumin Arterial Blood Glucose Arterial Blood Ionized Calcium Urine WBC (Auto) Coronavirus (PCR) 08/29/20 08/29/20 08/29/20 12:13 16:37 17:38 WBC RBC Hgb Hct MCV MCH MCHC RDW Lymph % (Auto) [place] % (Auto) Eos % (Auto) Lymph # (Auto) Seg Neutrophils % Seg Neutrophils # PT INR APTT D-Dimer Heparin Anti-Xa Level ABG pH POC ABG pCO2 POC ABG pO2 ABG pO2 ABG HCO3 ABG O2 Saturation ABG Base Excess ABG Hemoglobin ABG Oxyhemoglobin ABG Sodium ABG Potassium ABG Chloride ABG Glucose Carboxyhemoglobin Sodium 133 L Potassium 3.0 L Chloride 97.9 L Carbon Dioxide 21 L BUN Creatinine Glucose 111 H POC Glucose 109 H 106 H Calcium 8.3 L Magnesium 1.30 L Ferritin AST Alkaline Phosphatase Lactate Dehydrogenase C-Reactive Protein Total Protein Albumin Arterial Blood Glucose Arterial Blood Ionized Calcium Urine WBC (Auto) Coronavirus (PCR) 08/29/20 08/29/20 08/29/20 19:21 19:21 19:21 WBC RBC Hgb Hct MCV MCH MCHC RDW Lymph % (Auto) [place] % (Auto) Eos % (Auto) Lymph # (Auto) Seg Neutrophils % Seg Neutrophils # PT INR APTT D-Dimer 688.12 H Heparin Anti-Xa Level ABG pH POC ABG pCO2 POC ABG pO2 ABG pO2 ABG HCO3 ABG O2 Saturation ABG Base Excess ABG Hemoglobin ABG Oxyhemoglobin ABG Sodium ABG Potassium ABG Chloride ABG Glucose Carboxyhemoglobin Sodium Potassium 3.1 L Chloride Carbon Dioxide BUN Creatinine Glucose POC Glucose Calcium Magnesium 1.50 L Ferritin 1476.0 H AST Alkaline Phosphatase Lactate Dehydrogenase C-Reactive Protein Total Protein Albumin Arterial Blood Glucose Arterial Blood Ionized Calcium Urine WBC (Auto) Coronavirus (PCR) 08/29/20 08/29/20 08/31/20 19:21 Unknown 04:30 WBC RBC 3.12 L Hgb 9.1 L Hct 25.7 L MCV 83 L MCH MCHC 35 H RDW 17.4 H Lymph % (Auto) [place] % (Auto) 9.4 H Eos % (Auto) Lymph # (Auto) Seg Neutrophils % Seg Neutrophils # PT INR APTT D-Dimer Heparin Anti-Xa Level ABG pH POC ABG pCO2 POC ABG pO2 ABG pO2 ABG HCO3 ABG O2 Saturation ABG Base Excess ABG Hemoglobin ABG Oxyhemoglobin ABG Sodium ABG Potassium ABG Chloride ABG Glucose Carboxyhemoglobin Sodium Potassium Chloride Carbon Dioxide BUN Creatinine Glucose POC Glucose Calcium Magnesium Ferritin AST Alkaline Phosphatase Lactate Dehydrogenase 373 H C-Reactive Protein 18.30 H Total Protein Albumin Arterial Blood Glucose Arterial Blood Ionized Calcium Urine WBC (Auto) Coronavirus (PCR) Positive A 08/31/20 09/02/20 09/02/20 04:30 06:28 06:49 WBC RBC Hgb Hct MCV MCH MCHC RDW Lymph % (Auto) [place] % (Auto) Eos % (Auto) Lymph # (Auto) Seg Neutrophils % Seg Neutrophils # PT INR APTT D-Dimer Heparin Anti-Xa Level ABG pH POC ABG pCO2 26.2 L POC ABG pO2 82.2 L ABG pO2 ABG HCO3 ABG O2 Saturation ABG Base Excess ABG Hemoglobin 10.1 L ABG Oxyhemoglobin ABG Sodium 134.5 L ABG Potassium 3.2 L ABG Chloride ABG Glucose 127 H Carboxyhemoglobin 0.3 L Sodium 134 L Potassium 3.4 L Chloride Carbon Dioxide BUN Creatinine Glucose 129 H POC Glucose 109 H Calcium 8.0 L Magnesium Ferritin AST Alkaline Phosphatase Lactate Dehydrogenase C-Reactive Protein Total Protein Albumin Arterial Blood Glucose 127 H Arterial Blood Ionized Calcium 4.5 L Urine WBC (Auto) Coronavirus (PCR) 09/02/20 09/02/20 09/02/20 11:32 15:55 15:55 WBC RBC Hgb Hct MCV MCH MCHC RDW Lymph % (Auto) [place] % (Auto) Eos % (Auto) Lymph # (Auto) Seg Neutrophils % Seg Neutrophils # PT 15.5 H INR 1.23 H APTT 50.2 H D-Dimer 2186.40 H Heparin Anti-Xa Level ABG pH POC ABG pCO2 POC ABG pO2 ABG pO2 ABG HCO3 ABG O2 Saturation ABG Base Excess ABG Hemoglobin ABG Oxyhemoglobin ABG Sodium ABG Potassium ABG Chloride ABG Glucose Carboxyhemoglobin Sodium Potassium Chloride Carbon Dioxide 21 L BUN 30 H Creatinine 1.6 H Glucose 125 H POC Glucose 112 H Calcium 7.8 L Magnesium Ferritin AST Alkaline Phosphatase Lactate Dehydrogenase C-Reactive Protein Total Protein Albumin Arterial Blood Glucose Arterial Blood Ionized Calcium Urine WBC (Auto) Coronavirus (PCR) 09/02/20 09/02/20 09/02/20 15:55 15:55 17:34 WBC 11.2 H RBC 2.94 L Hgb 8.1 L Hct 24.3 L MCV 83 L MCH 27 L MCHC RDW 17.7 H Lymph % (Auto) 12.7 L [place] % (Auto) Eos % (Auto) Lymph # (Auto) Seg Neutrophils % 82.5 H Seg Neutrophils # 9.3 H PT INR APTT D-Dimer Heparin Anti-Xa Level ABG pH POC ABG pCO2 POC ABG pO2 ABG pO2 ABG HCO3 ABG O2 Saturation ABG Base Excess ABG Hemoglobin ABG Oxyhemoglobin ABG Sodium ABG Potassium ABG Chloride ABG Glucose Carboxyhemoglobin Sodium Potassium Chloride Carbon Dioxide BUN Creatinine Glucose POC Glucose 127 H Calcium Magnesium Ferritin 1892.0 H AST Alkaline Phosphatase Lactate Dehydrogenase C-Reactive Protein Total Protein Albumin Arterial Blood Glucose Arterial Blood Ionized Calcium Urine WBC (Auto) Coronavirus (PCR) 09/03/20 09/03/20 09/03/20 07:13 16:40 23:40 WBC RBC Hgb Hct MCV MCH MCHC RDW Lymph % (Auto) [place] % (Auto) Eos % (Auto) Lymph # (Auto) Seg Neutrophils % Seg Neutrophils # PT INR APTT D-Dimer Heparin Anti-Xa Level 0.88 H ABG pH POC ABG pCO2 POC ABG pO2 ABG pO2 ABG HCO3 ABG O2 Saturation ABG Base Excess ABG Hemoglobin ABG Oxyhemoglobin ABG Sodium ABG Potassium ABG Chloride ABG Glucose Carboxyhemoglobin Sodium Potassium 3.2 L Chloride 109.7 H Carbon Dioxide BUN 24 H Creatinine Glucose 142 H POC Glucose 220 H Calcium 8.2 L Magnesium Ferritin AST 75 H Alkaline Phosphatase Lactate Dehydrogenase C-Reactive Protein Total Protein 5.8 L Albumin 2.7 L Arterial Blood Glucose Arterial Blood Ionized Calcium Urine WBC (Auto) Coronavirus (PCR) 09/04/20 09/04/20 09/04/20 07:25 07:25 11:57 WBC RBC Hgb 9.0 L Hct 27.9 L MCV MCH MCHC RDW Lymph % (Auto) [place] % (Auto) Eos % (Auto) Lymph # (Auto) Seg Neutrophils % Seg Neutrophils # PT INR APTT D-Dimer Heparin Anti-Xa Level ABG pH POC ABG pCO2 POC ABG pO2 ABG pO2 ABG HCO3 ABG O2 Saturation ABG Base Excess ABG Hemoglobin ABG Oxyhemoglobin ABG Sodium ABG Potassium ABG Chloride ABG Glucose Carboxyhemoglobin Sodium 148 H Potassium Chloride 116.9 H Carbon Dioxide BUN Creatinine Glucose 129 H POC Glucose 113 H Calcium Magnesium Ferritin AST 93 H Alkaline Phosphatase 134 H Lactate Dehydrogenase C-Reactive Protein Total Protein 6.0 L Albumin 2.6 L Arterial Blood Glucose Arterial Blood Ionized Calcium Urine WBC (Auto) Coronavirus (PCR) 09/05/20 09/05/20 09/05/20 06:24 07:17 13:38 WBC RBC Hgb Hct MCV MCH MCHC RDW Lymph % (Auto) [place] % (Auto) Eos % (Auto) Lymph # (Auto) Seg Neutrophils % Seg Neutrophils # PT INR APTT D-Dimer Heparin Anti-Xa Level ABG pH 7.218 L POC ABG pCO2 66.0 H POC ABG pO2 45.8 L 79.1 L ABG pO2 ABG HCO3 ABG O2 Saturation ABG Base Excess ABG Hemoglobin 10.7 L 9.6 L ABG Oxyhemoglobin 74.5 L ABG Sodium 146.5 H 145.4 H ABG Potassium ABG Chloride 115.0 H 117.0 H ABG Glucose 146 H 106 H Carboxyhemoglobin 0.1 L 0 L Sodium 152 H Potassium Chloride 115.9 H Carbon Dioxide BUN Creatinine Glucose 134 H POC Glucose Calcium Magnesium Ferritin AST 69 H Alkaline Phosphatase 168 H Lactate Dehydrogenase C-Reactive Protein Total Protein 5.4 L Albumin 2.7 L Arterial Blood Glucose 146 H 106 H Arterial Blood Ionized Calcium Urine WBC (Auto) Coronavirus (PCR) 09/05/20 09/06/20 09/06/20 17:27 04:15 07:29 WBC RBC Hgb 7.8 L Hct 24.0 L MCV MCH MCHC RDW Lymph % (Auto) [place] % (Auto) Eos % (Auto) Lymph # (Auto) Seg Neutrophils % Seg Neutrophils # PT INR APTT D-Dimer Heparin Anti-Xa Level ABG pH POC ABG pCO2 POC ABG pO2 ABG pO2 184.9 H ABG HCO3 19.9 L ABG O2 Saturation 99.2 H ABG Base Excess -3.5 L ABG Hemoglobin 8.9 L ABG Oxyhemoglobin ABG Sodium ABG Potassium ABG Chloride ABG Glucose Carboxyhemoglobin Sodium Potassium Chloride Carbon Dioxide BUN Creatinine Glucose POC Glucose 124 H Calcium Magnesium Ferritin AST Alkaline Phosphatase Lactate Dehydrogenase C-Reactive Protein Total Protein Albumin Arterial Blood Glucose Arterial Blood Ionized Calcium Urine WBC (Auto) Coronavirus (PCR) 09/06/20 09/06/20 09/06/20 07:29 07:29 12:02 WBC 11.3 H RBC 2.83 L Hgb 7.8 L Hct 24.3 L MCV MCH MCHC RDW 17.7 H Lymph % (Auto) [place] % (Auto) Eos % (Auto) Lymph # (Auto) Seg Neutrophils % Seg Neutrophils # PT INR APTT D-Dimer Heparin Anti-Xa Level ABG pH POC ABG pCO2 POC ABG pO2 ABG pO2 ABG HCO3 ABG O2 Saturation ABG Base Excess ABG Hemoglobin ABG Oxyhemoglobin ABG Sodium ABG Potassium ABG Chloride ABG Glucose Carboxyhemoglobin Sodium 151 H Potassium Chloride 117.6 H Carbon Dioxide BUN 24 H Creatinine Glucose 159 H POC Glucose 158 H Calcium 7.7 L Magnesium Ferritin AST Alkaline Phosphatase Lactate Dehydrogenase C-Reactive Protein Total Protein Albumin Arterial Blood Glucose Arterial Blood Ionized Calcium Urine WBC (Auto) Coronavirus (PCR) 09/07/20 05:21 WBC RBC Hgb Hct MCV MCH MCHC RDW Lymph % (Auto) [place] % (Auto) Eos % (Auto) Lymph # (Auto) Seg Neutrophils % Seg Neutrophils # PT INR APTT D-Dimer Heparin Anti-Xa Level ABG pH POC ABG pCO2 POC ABG pO2 46.0 L ABG pO2 ABG HCO3 ABG O2 Saturation ABG Base Excess ABG Hemoglobin 8.6 L ABG Oxyhemoglobin ABG Sodium ABG Potassium ABG Chloride 116.0 H ABG Glucose 238 H Carboxyhemoglobin Sodium Potassium Chloride Carbon Dioxide BUN Creatinine Glucose POC Glucose Calcium Magnesium Ferritin AST Alkaline Phosphatase Lactate Dehydrogenase C-Reactive Protein Total Protein Albumin Arterial Blood Glucose 238 H Arterial Blood Ionized Calcium Urine WBC (Auto) Coronavirus (PCR) Chest x-ray: image reviewed (stable but persistent bilateral infiltrates) Allied health notes reviewed: nursing
--- NOTE | 2020-09-07 17:04 | Progress Note ---
Assessment and Plan Cultures: 08/16/2020 SARS CoV2 PCR: Negative 08/29/2020 SARS CoV2 PCR: Positive 08/15/2020 urine culture: No growth 08/24/2020 blood culture: No growth 08/28/2020 blood culture: No growth 08/28/2020 urine culture: No growth A/P: 64-year-old male with hypertension, coronary artery disease, peripheral vascular disease, gout, alcohol dependence was admitted to the hospital on 08/15/2020 due to bleeding from his left foot which is a site of a previous surgery. Patient was noted to have wound dehiscence complicated by wound necrosis. Was seen by vascular surgery. He underwent a TMA. Due to fever, patient was receiving IV levofloxacin for UTI. COVID-19 test done on 08/29/2020 for placement reasons came back positive. Patient has been having intermittent fevers since 08/28/2020. 09/02/2020, a code MET was called due to tachypnea and labored respirations: #Shock: Probably from severe COVID-19. #Bilateral pneumonia: Secondary to COVID-19. Patient with severe hypoxia, elevated inflammatory markers. Recently had completed levofloxacin. #Acute hypoxic respiratory failure: Now intubated #Peripheral vascular disease, wound dehiscence and necrosis: underwent TMA by vascular surgery #Coronary artery disease, CHF Recs: -Agree with IV/PO Dexamethasone 6 mg daily x 10 days -Completed remdesivir -Continue empiric antibiotics (Aztreonam, Vancomycin). Procal elevated. Continue for now, patient improved. -Stop Levaquin yesterday as he has had extended course. -prophylactic anticoagulation based on d-dimer per hospital protocol -trend ferritin, LDH, d-dimer, CRP every 2-3 days for risk stratification and to assess disease progression -Follow up MRSA nasal swab stop vancomycin if negative Dr. Perrni taking over tomorrow. Tara Stockton MD [facility] ([facility] O: [phone] F: [phone] Subjective Date of service: 09/07/20 Principal diagnosis: Ac hypoxemic resp failure; COVID-19; Pneumonia; Sepsis; PVD; L. foot ulcer Interval history: Afebrile over the past 2 days white count 11.3. Cultures are remain negative so far. Remains mechanically ventilated. Imaging personally reviewed: Chest x-ray: Stable trace bilateral pulmonary opacities. Objective - Exam Narrative Exam: Physical Exam (reviewed in chart to minimize risk of transmission) Constitutional: deferred Head, Ears, Nose: deferred Eyes: deferred Neck: deferred Oral: deferred Cardiovascular: deferred Respiratory: deferred GI: deferred Musculoskeletal: deferred Skin: deferred Hem/Lymphatic: deferred Psych: deferred Neurological: deferred - Constitutional Vitals: Vital Signs Temp Pulse Resp BP Pulse Ox 98.5 F 82 20 119/51 94 09/07/20 03:36 09/07/20 15:30 09/07/20 15:15 09/07/20 15:30 09/07/20 15:30 Temperature -Last 24 Hours Temperature 98.5 F Temperature 98.4 F Temperature 98.4 F - Labs CBC & Chem 7: 09/06/20 07:29 09/06/20 07:29 Labs: Abnormal lab results 09/07/20 Range/Units 05:21 POC ABG pO2 46.0 L (83-108) mmHg ABG Hemoglobin 8.6 L (12.0-17.5) ABG Chloride 116.0 H (98-107) mmol/L ABG Glucose 238 H (65-95) mg/dL Arterial Blood Glucose 238 H (65-95) mg/dL
[2020-09-08] MEDS: fentaNYL DRIP Premix 2,000 MCG/100 ML BAG IV SCH (01:36)
--- NOTE | 2020-09-08 03:00 | XRay Report ---
CHEST 1 VIEW 0218 INDICATION / CLINICAL INFORMATION: follow up respiratory failure COMPARISON: 09/07/2020 FINDINGS: SUPPORT DEVICES: Stable HEART / MEDIASTINUM: Stable LUNGS / PLEURA: Right lateral base is not fully included. Bilateral pulmonary infiltrates appear mild ly worse on the right. No pneumothorax. ADDITIONAL FINDINGS: No significant additional findings. Signer Name: Edy Roberts MD Signed: 09/08/2020 2:56 AM Workstation Name: [id number]
--- NOTE | 2020-09-08 03:19 | Progress Note ---
Assessment and Plan Assessment and Plan Assessment and plan: Patient is anxious to go home. Informed him that we are waiting for subacute rehab/SNF placement formalities Patient had lucas PCR test done today in preparation to placement to fdc versus subacute Covid test came back positive --[id number]; 08/29/2020 --Sepsis secondary to UTI/febrile illness T-max 101 F Antipyretics, continue Levaquin, Contact and droplet isolation Inflammatory markers, ID consult if she has already seen the patient Blood cultures , urine cultures negative to date plenty oral fluids, supportive care -- Necrosis of surgical wound h/o TMA on 07/30 he presented with increased bleeding from the wound Vascular consulted for further mx -- Peripheral vascular disease of lower extremity LLE revascularization done on 07/18 and 07/24 Continue antiplatelets and statin -- HTN (hypertension) continue antihypertensives --CAD (coronary artery disease) On Plavix, statin -- CHF (congestive heart failure), chronic diastolic and compensated 2D echo showed preserved EF We will hold the Lasix for now --Urinary retention, status post Renae placed on last admission Likely from BPH, urology f/u outpt --Sepsis secondary to UTI, started on levaquin --Obesity; BMI 33.6, patient needs weight reduction when medically stable -- DVT prophylaxis;On Heparin Subjective Date of service: 09/07/20 Principal diagnosis: Ac hypoxemic resp failure; COVID-19; Pneumonia; Sepsis; PVD; L. foot ulcer Objective - Constitutional Vitals: Vital Signs - 12hr 09/07/20 09/07/20 09/07/20 15:30 15:45 16:00 Temperature 98.2 F Pulse Rate 86 84 86 Pulse Rate [ 92 H From Monitor] Respiratory 22 22 Rate Blood Pressure 112/51 113/50 115/53 O2 Sat by Pulse 91 91 92 Oximetry 09/07/20 09/07/20 09/07/20 16:16 16:30 16:45 Temperature Pulse Rate 83 87 84 Pulse Rate [ From Monitor] Respiratory 22 21 22 Rate Blood Pressure 126/78 126/65 120/59 O2 Sat by Pulse 94 89 92 Oximetry 09/07/20 09/07/20 09/07/20 17:00 17:15 17:30 Temperature Pulse Rate 86 81 103 H Pulse Rate [ From Monitor] Respiratory 22 22 22 Rate Blood Pressure 129/63 124/61 134/61 O2 Sat by Pulse 92 92 Oximetry 09/07/20 09/07/20 09/07/20 17:45 18:00 18:15 Temperature Pulse Rate 86 103 H 81 Pulse Rate [ From Monitor] Respiratory 22 20 22 Rate Blood Pressure 124/61 128/56 127/63 O2 Sat by Pulse 94 93 Oximetry 09/07/20 09/07/20 09/07/20 18:30 18:45 19:00 Temperature Pulse Rate 88 100 H 105 H Pulse Rate [ From Monitor] Respiratory 22 22 22 Rate Blood Pressure 137/62 123/70 131/65 O2 Sat by Pulse 93 92 Oximetry 09/07/20 09/07/20 09/07/20 19:15 19:30 19:43 Temperature Pulse Rate 87 92 H 108 H Pulse Rate [ From Monitor] Respiratory 22 22 Rate Blood Pressure 117/64 118/61 118/61 O2 Sat by Pulse 92 93 Oximetry 09/07/20 09/07/20 09/07/20 19:46 20:00 20:15 Temperature 98.9 F Pulse Rate 96 H 95 H 86 Pulse Rate [ 95 H From Monitor] Respiratory 23 22 22 Rate Blood Pressure 119/56 130/57 128/65 O2 Sat by Pulse 91 94 94 Oximetry 09/07/20 09/07/20 09/07/20 20:30 20:45 21:00 Temperature Pulse Rate 85 86 91 H Pulse Rate [ From Monitor] Respiratory 22 22 22 Rate Blood Pressure 132/59 125/63 132/62 O2 Sat by Pulse 93 92 92 Oximetry 09/07/20 09/07/20 09/07/20 21:15 21:30 21:45 Temperature Pulse Rate 83 86 81 Pulse Rate [ From Monitor] Respiratory 22 23 22 Rate Blood Pressure 135/61 130/71 140/65 O2 Sat by Pulse 94 93 94 Oximetry 09/07/20 09/07/20 09/07/20 22:00 22:15 22:30 Temperature Pulse Rate 82 84 81 Pulse Rate [ From Monitor] Respiratory 22 22 21 Rate Blood Pressure 132/64 138/65 137/63 O2 Sat by Pulse 94 95 Oximetry 09/07/20 09/07/20 09/07/20 22:46 23:00 23:04 Temperature Pulse Rate 82 84 88 Pulse Rate [ From Monitor] Respiratory 22 22 22 Rate Blood Pressure 131/60 126/69 126/69 O2 Sat by Pulse 95 95 95 Oximetry 09/07/20 09/07/20 09/07/20 23:15 23:30 23:45 Temperature Pulse Rate 84 92 H 94 H Pulse Rate [ From Monitor] Respiratory 23 22 22 Rate Blood Pressure 129/63 131/61 125/63 O2 Sat by Pulse 93 94 93 Oximetry 09/07/20 09/07/20 09/08/20 23:50 23:55 00:00 Temperature 97.4 F L Pulse Rate 76 85 Pulse Rate [ 88 From Monitor] Respiratory 22 Rate Blood Pressure 125/63 132/67 O2 Sat by Pulse 94 94 Oximetry 09/08/20 09/08/20 09/08/20 00:16 00:30 00:46 Temperature Pulse Rate 88 73 79 Pulse Rate [ From Monitor] Respiratory 22 22 22 Rate Blood Pressure 137/64 133/63 124/64 O2 Sat by Pulse 94 94 94 Oximetry 09/08/20 09/08/20 09/08/20 01:00 01:16 01:30 Temperature Pulse Rate 83 82 74 Pulse Rate [ From Monitor] Respiratory 22 22 22 Rate Blood Pressure 135/60 125/60 119/58 O2 Sat by Pulse 94 94 94 Oximetry 09/08/20 09/08/20 09/08/20 01:45 02:00 02:16 Temperature Pulse Rate 80 92 H 87 Pulse Rate [ From Monitor] Respiratory 22 23 22 Rate Blood Pressure 125/56 133/58 143/68 O2 Sat by Pulse 94 93 94 Oximetry 09/08/20 09/08/20 02:30 02:45 Temperature Pulse Rate 83 97 H Pulse Rate [ From Monitor] Respiratory 20 21 Rate Blood Pressure 129/62 141/71 O2 Sat by Pulse 93 91 Oximetry General appearance: Present: no acute distress, well-nourished - EENT Eyes: PERRL, EOM intact ENT: hearing intact, clear oral mucosa Ears: bilateral: normal - Neck Neck: supple, normal ROM - Respiratory Respiratory effort: normal Respiratory: bilateral: CTA - Breasts Breasts: normal - Cardiovascular Rhythm: regular Heart Sounds: Present: S1 & S2. Absent: gallop, rub Extremities: pulses intact, No edema, normal color, Full ROM - Gastrointestinal General gastrointestinal: Present: soft, non-tender, non-distended, normal bowel sounds - Genitourinary Male genitourinary: normal - Integumentary Integumentary: clear, warm, dry - Musculoskeletal Musculoskeletal: 1, strength equal bilaterally - Neurologic Neurologic: moves all extremities - Psychiatric Psychiatric: memory intact, appropriate mood/affect, intact judgment & insight - Labs CBC & Chem 7: 09/06/20 07:29 09/06/20 07:29 Labs: Abnormal lab results 09/07/20 Range/Units 05:21 POC ABG pO2 46.0 L (83-108) mmHg ABG Hemoglobin 8.6 L (12.0-17.5) ABG Chloride 116.0 H (98-107) mmol/L ABG Glucose 238 H (65-95) mg/dL Arterial Blood Glucose 238 H (65-95) mg/dL
[2020-09-08 04:58] LABS: Hematocrit 22.7 % (35.5-45.6); Hemoglobin 7.4 gm/dl (11.8-15.2)
[2020-09-08] MEDS: AZTREONAM/NS 1 GM/50 ML 1 GM/50 ML VIAL IV SCH ×3 (05:44→21:04)
[2020-09-08] MEDS: ENOXAPARIN 100 MG/1 ML INJ SUB-Q SCH ×2 (09:34→21:05)
[2020-09-08] MEDS: dexAMETHasone 4 MG/ML VIAL IV SCH (09:34)
[2020-09-08] MEDS: CLOPIDOGREL 75 MG TAB PO SCH (09:34)
[2020-09-08] MEDS: ASCORBIC ACID 500 MG TAB PO SCH ×2 (09:35→21:05)
[2020-09-08] MEDS: CILOSTAZOL 100 MG TAB PO SCH ×2 (09:35→21:05)
[2020-09-08] MEDS: ZINC SULFATE 220 MG CAP PO SCH ×2 (09:35→21:05)
[2020-09-08] MEDS: LANSOPRAZOLE 30 MG SOLUTAB FEEDTUBE SCH (09:35)
[2020-09-08] MEDS: THIAMINE 100 MG TAB PO SCH (09:35)
[2020-09-08] MEDS: FOLIC ACID 1 MG TAB PO SCH (09:35)
[2020-09-08] MEDS: amLODIPine 10 MG TAB PO SCH (10:20)
[2020-09-08] MEDS: METOPROLOL TARTRATE 50 MG TAB PO SCH ×2 (10:20→21:05)
[2020-09-08] MEDS: VANCOMYCIN 1,500 MG in SODIUM CHLORIDE 0.9% 500 ML 500 ML IV SCH (12:29)
--- NOTE | 2020-09-08 12:38 | Progress Note ---
Assessment and Plan Acute hypoxemic respiratory failure, on mechanical ventilatory support. COVID-19 infection. Bilateral pneumonia versus pulmonary edema. Severe sepsis with shock. Peripheral vascular disease. Anemia that is microcytic. History of alcohol abuse. Acute encephalopathy. History of obesity. History of coronary artery disease. History of gout. Hyperlipidemia. Hypertension, now hypotensive. Left lower extremity / left foot ulcer. - continue currenty vent settings; keep set rate at 25/min for now - keep peep at 10 - continue free water supplementation 250 mls q4h - continue daily SAT and SBT assessment as tolerated - continue to wean supplemental oxygen for target O2 sat's > 92% acutely - continue care as below otherwise; - VAP bundle addressed - continue lung protective strategies - continue bronchodilators with pulmonary hygiene per RT - wean per pulmonary driven protocols otherwise - continue accuchecks with glycemic control per SSI (While critically ill target blood glucose of 140-180 mg/dL; avoid hypoglycemia) - sedation prn for target RASS 0 to -1 - avoid nephrotoxins, renally dose all medications - accuchecks with glycemic control per SSI (While critically ill target blood glucose of 140-180 mg/dL; avoid hypoglycemia) - avoid benzodiazepine's, reduce the possibility of delirium - complete AB's per ID rec's - prn analgesia per CPOT score - Maintenance of sleep-wake cycle, avoid delirium - enteral nutritional support at goal rate as tolerated - G.I. & VTE prophylaxis - PT/OT/ROM exercises - continue mobility protocols for pressure ulcer prophylaxis - Monitor hemodynamics closely - continue other care per attending / other consultants - discharge planning ongoing concurrently COVID SPECIFIC INTERVENTIONS - completed Remdesivir as per ID/Pulmonary developed protocols - continue systemic steroids for severe COVID-19 infection empirically - follow repeat COVID tests results - zinc and vitamin C supplementation - Monitor inflammatory markers per facility protocol - ferritin, Ddimer, CRP - therapeutic anticoagulation per system Protocol based on d-dimer and clinical considerations - Continue contact and airborne isolation .... Re-evaluate in am & prn CONDITION: CRITICAL PROGNOSIS: GUARDED CODE STATUS: FULL CODE The high probability of a clinically significant, sudden or life-threatening deterioration of the [respiratory, cardiovascular, renal & neurologic] system(s) required my full and direct attention, intervention and personal management. The aggregate critical care time was [34] minutes without overlap. Time includes spent on; [x] Data Review and interpretation [x] Patient assessment and monitoring of vital signs [x] Documentation [x] Medication orders and management Subjective Date of service: 09/08/20 Principal diagnosis: Ac hypoxemic resp failure; COVID-19; Pneumonia; Sepsis; PVD; L. foot ulcer Interval history: Patient is seen today for: Acute hypoxemic respiratory failure; COVID-19 i nfection; Bilateral pneumonia versus pulmonary edema; Severe sepsis with shock; Peripheral vascular disease; Acute encephalopathy; Left lower extremity / left foot ulcer. Seen and examined at bedside; 24hour events reviewed; nursing and respiratory care staff consulted; no adverse overnight events reported to me; resting peacefully in bed; remains on MVS; FiO2 still at 65%; no N/V/F/C Objective Vital Signs - 12hr 09/08/20 09/08/20 09/08/20 00:46 01:00 01:16 Temperature Pulse Rate 79 83 82 Pulse Rate [ From Monitor] Respiratory 22 22 22 Rate Blood Pressure 124/64 135/60 125/60 O2 Sat by Pulse 94 94 94 Oximetry 09/08/20 09/08/20 09/08/20 01:30 01:45 02:00 Temperature Pulse Rate 74 80 92 H Pulse Rate [ From Monitor] Respiratory 22 22 23 Rate Blood Pressure 119/58 125/56 133/58 O2 Sat by Pulse 94 94 93 Oximetry 09/08/20 09/08/20 09/08/20 02:16 02:30 02:45 Temperature Pulse Rate 87 83 97 H Pulse Rate [ From Monitor] Respiratory 22 20 21 Rate Blood Pressure 143/68 129/62 141/71 O2 Sat by Pulse 94 93 91 Oximetry 09/08/20 09/08/20 09/08/20 03:00 03:15 03:29 Temperature 98.6 F Pulse Rate 80 89 Pulse Rate [ From Monitor] Respiratory 21 23 Rate Blood Pressure 136/58 130/60 O2 Sat by Pulse 92 90 Oximetry 09/08/20 09/08/20 09/08/20 03:30 03:45 04:00 Temperature Pulse Rate 92 H 91 H 85 Pulse Rate [ 85 From Monitor] Respiratory 21 22 20 Rate Blood Pressure 128/64 135/59 142/58 O2 Sat by Pulse 92 91 89 Oximetry 09/08/20 09/08/20 09/08/20 04:15 04:30 04:46 Temperature Pulse Rate 98 H 92 H 85 Pulse Rate [ From Monitor] Respiratory 14 22 21 Rate Blood Pressure 133/70 135/63 148/62 O2 Sat by Pulse 88 93 92 Oximetry 09/08/20 09/08/20 09/08/20 05:00 05:15 05:30 Temperature Pulse Rate 78 77 83 Pulse Rate [ From Monitor] Respiratory 22 22 22 Rate Blood Pressure 136/63 132/65 129/61 O2 Sat by Pulse 90 91 90 Oximetry 09/08/20 09/08/20 09/08/20 05:46 06:00 06:15 Temperature Pulse Rate 82 85 81 Pulse Rate [ From Monitor] Respiratory 16 18 Rate Blood Pressure 129/61 141/57 130/55 O2 Sat by Pulse 90 91 94 Oximetry 09/08/20 09/08/20 09/08/20 06:30 06:46 07:00 Temperature Pulse Rate 83 78 83 Pulse Rate [ From Monitor] Respiratory 20 22 19 Rate Blood Pressure 128/57 136/60 130/66 O2 Sat by Pulse 93 92 91 Oximetry 09/08/20 09/08/20 09/08/20 07:15 07:30 07:46 Temperature Pulse Rate 90 79 86 Pulse Rate [ From Monitor] Respiratory 22 22 22 Rate Blood Pressure 135/59 125/59 128/60 O2 Sat by Pulse 93 92 94 Oximetry 09/08/20 09/08/20 09/08/20 08:00 08:15 08:30 Temperature Pulse Rate 80 75 80 Pulse Rate [ 94 H From Monitor] Respiratory 20 22 22 Rate Blood Pressure 128/60 132/64 121/56 O2 Sat by Pulse 97 94 94 Oximetry 09/08/20 09/08/20 09/08/20 08:45 09:00 09:15 Temperature Pulse Rate 81 85 86 Pulse Rate [ From Monitor] Respiratory 22 22 22 Rate Blood Pressure 123/55 127/56 128/55 O2 Sat by Pulse 94 95 94 Oximetry 09/08/20 09/08/20 09/08/20 09:30 09:40 09:45 Temperature Pulse Rate 81 85 86 Pulse Rate [ From Monitor] Respiratory 22 22 Rate Blood Pressure 135/64 135/64 141/59 O2 Sat by Pulse 95 96 95 Oximetry 09/08/20 09/08/20 09/08/20 10:00 10:15 10:20 Temperature Pulse Rate 88 75 75 Pulse Rate [ From Monitor] Respiratory 20 21 Rate Blood Pressure 129/59 135/61 135/61 O2 Sat by Pulse 95 94 Oximetry 09/08/20 09/08/20 09/08/20 10:30 10:46 11:00 Temperature Pulse Rate 76 78 71 Pulse Rate [ From Monitor] Respiratory 22 22 22 Rate Blood Pressure 141/63 122/68 117/52 O2 Sat by Pulse 96 96 95 Oximetry 09/08/20 09/08/20 09/08/20 11:15 11:30 11:45 Temperature Pulse Rate 69 64 69 Pulse Rate [ From Monitor] Respiratory 22 22 18 Rate Blood Pressure 110/54 107/51 110/50 O2 Sat by Pulse 93 92 94 Oximetry 09/08/20 12:00 Temperature Pulse Rate 93 H Pulse Rate [ 93 H From Monitor] Respiratory 20 Rate Blood Pressure 108/54 O2 Sat by Pulse 94 Oximetry Constitutional: no acute distress, other (elderly obese male with mildly i ncreased respiratory effort at rest on MVS) Eyes: non-icteric ENT: oropharynx moist, other (ETT 24 cm MONICA) Neck: supple, no lymphadenopathy, no JVD Effort: mildly labored Ascultation: Bilateral: diminished breath sounds, rales (improved) Percussion: Bilateral: not dull Cardiovascular: regular rate and rhythm Gastrointestinal: normoactive bowel sounds, soft, non-tender, non-distended (protuberant) Integumentary: normal (in areas i examined; please see [facility] notes for full d escription) Extremities: no cyanosis, pink and warm, pulses normal, no ischemia or petechiae Neurologic: non-focal exam (grossly), pupils equal and round, other (lethargic) Psychiatric: other (unable to assess) CBC and BMP: 09/08/20 04:35 09/06/20 07:29 ABG, PT/INR, D-dimer: ABG ABG pH 7.332 (7.320-7.450) 09/08/20 04:31 POC ABG pCO2 49.1 mmHg (32.0-48.0) H 09/08/20 04:31 ABG pCO2 29.5 mm Hg 09/06/20 04:15 POC ABG pO2 58.6 mmHg (83-108) L 09/08/20 04:31 ABG pO2 184.9 mm Hg (80.0-90.0) H 09/06/20 04:15 POC ABG HCO3 25.4 09/08/20 04:31 ABG O2 Saturation 99.2 % (95.0-99.0) H 09/06/20 04:15 PT/INR, D-dimer PT 15.5 Sec. (12.2-14.9) H 09/02/20 15:55 INR 1.23 (0.87-1.13) H 09/02/20 15:55 D-Dimer 2186.40 ng/mlDDU (0-234) H 09/02/20 15:55 Abnormal lab findings: Abnormal Labs 08/15/20 08/15/20 08/15/20 08:49 10:40 10:40 WBC RBC 2.96 L Hgb 9.0 L Hct 25.8 L MCV MCH MCHC 35 H RDW 16.2 H Lymph % (Auto) Coffee % (Auto) Eos % (Auto) Lymph # (Auto) Seg Neutrophils % Seg Neutrophils # PT INR APTT D-Dimer Heparin Anti-Xa Level ABG pH POC ABG pCO2 POC ABG pO2 ABG pO2 ABG HCO3 ABG O2 Saturation ABG Base Excess ABG Hemoglobin ABG Oxyhemoglobin ABG Sodium ABG Potassium ABG Chloride ABG Glucose Carboxyhemoglobin Sodium Potassium Chloride Carbon Dioxide BUN Creatinine 0.7 L Glucose 188 H POC Glucose 212 H Calcium 8.3 L Magnesium Ferritin AST Alkaline Phosphatase Lactate Dehydrogenase C-Reactive Protein Total Protein Albumin Arterial Blood Glucose Arterial Blood Ionized Calcium Urine WBC (Auto) Coronavirus (PCR) 08/15/20 08/15/20 08/16/20 14:00 Unknown 04:43 WBC RBC 3.28 L Hgb 9.6 L Hct 29.3 L MCV MCH MCHC RDW 16.6 H Lymph % (Auto) Coffee % (Auto) Eos % (Auto) 4.9 H Lymph # (Auto) Seg Neutrophils % Seg Neutrophils # PT INR APTT D-Dimer Heparin Anti-Xa Level ABG pH POC ABG pCO2 POC ABG pO2 ABG pO2 ABG HCO3 ABG O2 Saturation ABG Base Excess ABG Hemoglobin ABG Oxyhemoglobin ABG Sodium ABG Potassium ABG Chloride ABG Glucose Carboxyhemoglobin Sodium Potassium Chloride Carbon Dioxide BUN 8 L Creatinine 0.6 L Glucose 115 H POC Glucose Calcium Magnesium Ferritin AST Alkaline Phosphatase Lactate Dehydrogenase C-Reactive Protein Total Protein Albumin Arterial Blood Glucose Arterial Blood Ionized Calcium Urine WBC (Auto) 31.0 H Coronavirus (PCR) 08/16/20 08/18/20 08/20/20 04:43 15:17 07:12 WBC RBC Hgb 9.1 L Hct 27.2 L MCV MCH MCHC RDW Lymph % (Auto) Coffee % (Auto) Eos % (Auto) Lymph # (Auto) Seg Neutrophils % Seg Neutrophils # PT INR APTT D-Dimer Heparin Anti-Xa Level ABG pH POC ABG pCO2 POC ABG pO2 ABG pO2 ABG HCO3 ABG O2 Saturation ABG Base Excess ABG Hemoglobin ABG Oxyhemoglobin ABG Sodium ABG Potassium ABG Chloride ABG Glucose Carboxyhemoglobin Sodium 135 L Potassium Chloride 97.5 L Carbon Dioxide BUN Creatinine 0.5 L Glucose 153 H 135 H POC Glucose Calcium Magnesium Ferritin AST Alkaline Phosphatase Lactate Dehydrogenase C-Reactive Protein Total Protein Albumin Arterial Blood Glucose Arterial Blood Ionized Calcium Urine WBC (Auto) Coronavirus (PCR) 08/20/20 08/20/20 08/20/20 07:12 07:12 08:07 WBC RBC Hgb Hct MCV MCH MCHC RDW Lymph % (Auto) Coffee % (Auto) Eos % (Auto) Lymph # (Auto) Seg Neutrophils % Seg Neutrophils # PT INR 1.15 H APTT D-Dimer Heparin Anti-Xa Level ABG pH POC ABG pCO2 POC ABG pO2 ABG pO2 ABG HCO3 ABG O2 Saturation ABG Base Excess ABG Hemoglobin ABG Oxyhemoglobin ABG Sodium ABG Potassium ABG Chloride ABG Glucose Carboxyhemoglobin Sodium Potassium Chloride Carbon Dioxide BUN Creatinine Glucose 113 H POC Glucose 108 H Calcium Magnesium Ferritin AST Alkaline Phosphatase Lactate Dehydrogenase C-Reactive Protein Total Protein Albumin Arterial Blood Glucose Arterial Blood Ionized Calcium Urine WBC (Auto) Coronavirus (PCR) 08/20/20 08/20/20 08/21/20 16:32 22:34 07:42 WBC RBC Hgb Hct MCV MCH MCHC RDW Lymph % (Auto) Coffee % (Auto) Eos % (Auto) Lymph # (Auto) Seg Neutrophils % Seg Neutrophils # PT INR APTT D-Dimer Heparin Anti-Xa Level ABG pH POC ABG pCO2 POC ABG pO2 ABG pO2 ABG HCO3 ABG O2 Saturation ABG Base Excess ABG Hemoglobin ABG Oxyhemoglobin ABG Sodium ABG Potassium ABG Chloride ABG Glucose Carboxyhemoglobin Sodium Potassium Chloride Carbon Dioxide BUN Creatinine Glucose POC Glucose 107 H 139 H 115 H Calcium Magnesium Ferritin AST Alkaline Phosphatase Lactate Dehydrogenase C-Reactive Protein Total Protein Albumin Arterial Blood Glucose Arterial Blood Ionized Calcium Urine WBC (Auto) Coronavirus (PCR) 08/21/20 08/21/20 08/21/20 08:14 08:14 11:31 WBC RBC 3.08 L Hgb 8.9 L Hct 27.0 L MCV MCH MCHC RDW 16.7 H Lymph % (Auto) Coffee % (Auto) Eos % (Auto) Lymph # (Auto) Seg Neutrophils % Seg Neutrophils # PT INR APTT D-Dimer Heparin Anti-Xa Level ABG pH POC ABG pCO2 POC ABG pO2 ABG pO2 ABG HCO3 ABG O2 Saturation ABG Base Excess ABG Hemoglobin ABG Oxyhemoglobin ABG Sodium ABG Potassium ABG Chloride ABG Glucose Carboxyhemoglobin Sodium 136 L Potassium Chloride Carbon Dioxide BUN Creatinine Glucose 129 H POC Glucose 132 H Calcium Magnesium Ferritin AST Alkaline Phosphatase Lactate Dehydrogenase C-Reactive Protein Total Protein Albumin Arterial Blood Glucose Arterial Blood Ionized Calcium Urine WBC (Auto) Coronavirus (PCR) 08/24/20 08/25/20 08/26/20 10:57 18:39 11:57 WBC RBC Hgb Hct MCV MCH MCHC RDW Lymph % (Auto) Coffee % (Auto) Eos % (Auto) Lymph # (Auto) Seg Neutrophils % Seg Neutrophils # PT INR APTT D-Dimer Heparin Anti-Xa Level ABG pH POC ABG pCO2 POC ABG pO2 ABG pO2 ABG HCO3 ABG O2 Saturation ABG Base Excess ABG Hemoglobin ABG Oxyhemoglobin ABG Sodium ABG Potassium ABG Chloride ABG Glucose Carboxyhemoglobin Sodium Potassium Chloride Carbon Dioxide BUN Creatinine Glucose POC Glucose 126 H 120 H 127 H Calcium Magnesium Ferritin AST Alkaline Phosphatase Lactate Dehydrogenase C-Reactive Protein Total Protein Albumin Arterial Blood Glucose Arterial Blood Ionized Calcium Urine WBC (Auto) Coronavirus (PCR) 08/26/20 08/26/20 08/28/20 18:44 23:31 19:34 WBC RBC 3.09 L Hgb 8.7 L Hct 25.5 L MCV 82 L MCH MCHC RDW 17.1 H Lymph % (Auto) Coffee % (Auto) 9.1 H Eos % (Auto) Lymph # (Auto) 0.8 L Seg Neutrophils % 71.7 H Seg Neutrophils # PT INR APTT D-Dimer Heparin Anti-Xa Level ABG pH POC ABG pCO2 POC ABG pO2 ABG pO2 ABG HCO3 ABG O2 Saturation ABG Base Excess ABG Hemoglobin ABG Oxyhemoglobin ABG Sodium ABG Potassium ABG Chloride ABG Glucose Carboxyhemoglobin Sodium Potassium Chloride Carbon Dioxide BUN Creatinine Glucose POC Glucose 125 H 115 H Calcium Magnesium Ferritin AST Alkaline Phosphatase Lactate Dehydrogenase C-Reactive Protein Total Protein Albumin Arterial Blood Glucose Arterial Blood Ionized Calcium Urine WBC (Auto) Coronavirus (PCR) 08/28/20 08/28/20 08/29/20 19:34 22:16 08:06 WBC RBC Hgb Hct MCV MCH MCHC RDW Lymph % (Auto) Coffee % (Auto) Eos % (Auto) Lymph # (Auto) Seg Neutrophils % Seg Neutrophils # PT INR APTT D-Dimer Heparin Anti-Xa Level ABG pH POC ABG pCO2 POC ABG pO2 ABG pO2 ABG HCO3 ABG O2 Saturation ABG Base Excess ABG Hemoglobin ABG Oxyhemoglobin ABG Sodium ABG Potassium ABG Chloride ABG Glucose Carboxyhemoglobin Sodium 130 L Potassium 2.6 L* Chloride 96.4 L Carbon Dioxide BUN Creatinine Glucose 119 H POC Glucose 110 H 119 H Calcium 7.8 L Magnesium Ferritin AST Alkaline Phosphatase Lactate Dehydrogenase C-Reactive Protein Total Protein Albumin Arterial Blood Glucose Arterial Blood Ionized Calcium Urine WBC (Auto) Coronavirus (PCR) 08/29/20 08/29/20 08/29/20 12:13 16:37 17:38 WBC RBC Hgb Hct MCV MCH MCHC RDW Lymph % (Auto) Coffee % (Auto) Eos % (Auto) Lymph # (Auto) Seg Neutrophils % Seg Neutrophils # PT INR APTT D-Dimer Heparin Anti-Xa Level ABG pH POC ABG pCO2 POC ABG pO2 ABG pO2 ABG HCO3 ABG O2 Saturation ABG Base Excess ABG Hemoglobin ABG Oxyhemoglobin ABG Sodium ABG Potassium ABG Chloride ABG Glucose Carboxyhemoglobin Sodium 133 L Potassium 3.0 L Chloride 97.9 L Carbon Dioxide 21 L BUN Creatinine Glucose 111 H POC Glucose 109 H 106 H Calcium 8.3 L Magnesium 1.30 L Ferritin AST Alkaline Phosphatase Lactate Dehydrogenase C-Reactive Protein Total Protein Albumin Arterial Blood Glucose Arterial Blood Ionized Calcium Urine WBC (Auto) Coronavirus (PCR) 08/29/20 08/29/20 08/29/20 19:21 19:21 19:21 WBC RBC Hgb Hct MCV MCH MCHC RDW Lymph % (Auto) Coffee % (Auto) Eos % (Auto) Lymph # (Auto) Seg Neutrophils % Seg Neutrophils # PT INR APTT D-Dimer 688.12 H Heparin Anti-Xa Level ABG pH POC ABG pCO2 POC ABG pO2 ABG pO2 ABG HCO3 ABG O2 Saturation ABG Base Excess ABG Hemoglobin ABG Oxyhemoglobin ABG Sodium ABG Potassium ABG Chloride ABG Glucose Carboxyhemoglobin Sodium Potassium 3.1 L Chloride Carbon Dioxide BUN Creatinine Glucose POC Glucose Calcium Magnesium 1.50 L Ferritin 1476.0 H AST Alkaline Phosphatase Lactate Dehydrogenase C-Reactive Protein Total Protein Albumin Arterial Blood Glucose Arterial Blood Ionized Calcium Urine WBC (Auto) Coronavirus (PCR) 08/29/20 08/29/20 08/31/20 19:21 Unknown 04:30 WBC RBC 3.12 L Hgb 9.1 L Hct 25.7 L MCV 83 L MCH MCHC 35 H RDW 17.4 H Lymph % (Auto) Coffee % (Auto) 9.4 H Eos % (Auto) Lymph # (Auto) Seg Neutrophils % Seg Neutrophils # PT INR APTT D-Dimer Heparin Anti-Xa Level ABG pH POC ABG pCO2 POC ABG pO2 ABG pO2 ABG HCO3 ABG O2 Saturation ABG Base Excess ABG Hemoglobin ABG Oxyhemoglobin ABG Sodium ABG Potassium ABG Chloride ABG Glucose Carboxyhemoglobin Sodium Potassium Chloride Carbon Dioxide BUN Creatinine Glucose POC Glucose Calcium Magnesium Ferritin AST Alkaline Phosphatase Lactate Dehydrogenase 373 H C-Reactive Protein 18.30 H Total Protein Albumin Arterial Blood Glucose Arterial Blood Ionized Calcium Urine WBC (Auto) Coronavirus (PCR) Positive A 08/31/20 09/02/20 09/02/20 04:30 06:28 06:49 WBC RBC Hgb Hct MCV MCH MCHC RDW Lymph % (Auto) Coffee % (Auto) Eos % (Auto) Lymph # (Auto) Seg Neutrophils % Seg Neutrophils # PT INR APTT D-Dimer Heparin Anti-Xa Level ABG pH POC ABG pCO2 26.2 L POC ABG pO2 82.2 L ABG pO2 ABG HCO3 ABG O2 Saturation ABG Base Excess ABG Hemoglobin 10.1 L ABG Oxyhemoglobin ABG Sodium 134.5 L ABG Potassium 3.2 L ABG Chloride ABG Glucose 127 H Carboxyhemoglobin 0.3 L Sodium 134 L Potassium 3.4 L Chloride Carbon Dioxide BUN Creatinine Glucose 129 H POC Glucose 109 H Calcium 8.0 L Magnesium Ferritin AST Alkaline Phosphatase Lactate Dehydrogenase C-Reactive Protein Total Protein Albumin Arterial Blood Glucose 127 H Arterial Blood Ionized Calcium 4.5 L Urine WBC (Auto) Coronavirus (PCR) 09/02/20 09/02/20 09/02/20 11:32 15:55 15:55 WBC RBC Hgb Hct MCV MCH MCHC RDW Lymph % (Auto) Coffee % (Auto) Eos % (Auto) Lymph # (Auto) Seg Neutrophils % Seg Neutrophils # PT 15.5 H INR 1.23 H APTT 50.2 H D-Dimer 2186.40 H Heparin Anti-Xa Level ABG pH POC ABG pCO2 POC ABG pO2 ABG pO2 ABG HCO3 ABG O2 Saturation ABG Base Excess ABG Hemoglobin ABG Oxyhemoglobin ABG Sodium ABG Potassium ABG Chloride ABG Glucose Carboxyhemoglobin Sodium Potassium Chloride Carbon Dioxide 21 L BUN 30 H Creatinine 1.6 H Glucose 125 H POC Glucose 112 H Calcium 7.8 L Magnesium Ferritin AST Alkaline Phosphatase Lactate Dehydrogenase C-Reactive Protein Total Protein Albumin Arterial Blood Glucose Arterial Blood Ionized Calcium Urine WBC (Auto) Coronavirus (PCR) 09/02/20 09/02/20 09/02/20 15:55 15:55 17:34 WBC 11.2 H RBC 2.94 L Hgb 8.1 L Hct 24.3 L MCV 83 L MCH 27 L MCHC RDW 17.7 H Lymph % (Auto) 12.7 L Coffee % (Auto) Eos % (Auto) Lymph # (Auto) Seg Neutrophils % 82.5 H Seg Neutrophils # 9.3 H PT INR APTT D-Dimer Heparin Anti-Xa Level ABG pH POC ABG pCO2 POC ABG pO2 ABG pO2 ABG HCO3 ABG O2 Saturation ABG Base Excess ABG Hemoglobin ABG Oxyhemoglobin ABG Sodium ABG Potassium ABG Chloride ABG Glucose Carboxyhemoglobin Sodium Potassium Chloride Carbon Dioxide BUN Creatinine Glucose POC Glucose 127 H Calcium Magnesium Ferritin 1892.0 H AST Alkaline Phosphatase Lactate Dehydrogenase C-Reactive Protein Total Protein Albumin Arterial Blood Glucose Arterial Blood Ionized Calcium Urine WBC (Auto) Coronavirus (PCR) 09/03/20 09/03/20 09/03/20 07:13 16:40 23:40 WBC RBC Hgb Hct MCV MCH MCHC RDW Lymph % (Auto) Coffee % (Auto) Eos % (Auto) Lymph # (Auto) Seg Neutrophils % Seg Neutrophils # PT INR APTT D-Dimer Heparin Anti-Xa Level 0.88 H ABG pH POC ABG pCO2 POC ABG pO2 ABG pO2 ABG HCO3 ABG O2 Saturation ABG Base Excess ABG Hemoglobin ABG Oxyhemoglobin ABG Sodium ABG Potassium ABG Chloride ABG Glucose Carboxyhemoglobin Sodium Potassium 3.2 L Chloride 109.7 H Carbon Dioxide BUN 24 H Creatinine Glucose 142 H POC Glucose 220 H Calcium 8.2 L Magnesium Ferritin AST 75 H Alkaline Phosphatase Lactate Dehydrogenase C-Reactive Protein Total Protein 5.8 L Albumin 2.7 L Arterial Blood Glucose Arterial Blood Ionized Calcium Urine WBC (Auto) Coronavirus (PCR) 09/04/20 09/04/20 09/04/20 07:25 07:25 11:57 WBC RBC Hgb 9.0 L Hct 27.9 L MCV MCH MCHC RDW Lymph % (Auto) Coffee % (Auto) Eos % (Auto) Lymph # (Auto) Seg Neutrophils % Seg Neutrophils # PT INR APTT D-Dimer Heparin Anti-Xa Level ABG pH POC ABG pCO2 POC ABG pO2 ABG pO2 ABG HCO3 ABG O2 Saturation ABG Base Excess ABG Hemoglobin ABG Oxyhemoglobin ABG Sodium ABG Potassium ABG Chloride ABG Glucose Carboxyhemoglobin Sodium 148 H Potassium Chloride 116.9 H Carbon Dioxide BUN Creatinine Glucose 129 H POC Glucose 113 H Calcium Magnesium Ferritin AST 93 H Alkaline Phosphatase 134 H Lactate Dehydrogenase C-Reactive Protein Total Protein 6.0 L Albumin 2.6 L Arterial Blood Glucose Arterial Blood Ionized Calcium Urine WBC (Auto) Coronavirus (PCR) 09/05/20 09/05/20 09/05/20 06:24 07:17 13:38 WBC RBC Hgb Hct MCV MCH MCHC RDW Lymph % (Auto) Coffee % (Auto) Eos % (Auto) Lymph # (Auto) Seg Neutrophils % Seg Neutrophils # PT INR APTT D-Dimer Heparin Anti-Xa Level ABG pH 7.218 L POC ABG pCO2 66.0 H POC ABG pO2 45.8 L 79.1 L ABG pO2 ABG HCO3 ABG O2 Saturation ABG Base Excess ABG Hemoglobin 10.7 L 9.6 L ABG Oxyhemoglobin 74.5 L ABG Sodium 146.5 H 145.4 H ABG Potassium ABG Chloride 115.0 H 117.0 H ABG Glucose 146 H 106 H Carboxyhemoglobin 0.1 L 0 L Sodium 152 H Potassium Chloride 115.9 H Carbon Dioxide BUN Creatinine Glucose 134 H POC Glucose Calcium Magnesium Ferritin AST 69 H Alkaline Phosphatase 168 H Lactate Dehydrogenase C-Reactive Protein Total Protein 5.4 L Albumin 2.7 L Arterial Blood Glucose 146 H 106 H Arterial Blood Ionized Calcium Urine WBC (Auto) Coronavirus (PCR) 09/05/20 09/06/20 09/06/20 17:27 04:15 07:29 WBC RBC Hgb 7.8 L Hct 24.0 L MCV MCH MCHC RDW Lymph % (Auto) Coffee % (Auto) Eos % (Auto) Lymph # (Auto) Seg Neutrophils % Seg Neutrophils # PT INR APTT D-Dimer Heparin Anti-Xa Level ABG pH POC ABG pCO2 POC ABG pO2 ABG pO2 184.9 H ABG HCO3 19.9 L ABG O2 Saturation 99.2 H ABG Base Excess -3.5 L ABG Hemoglobin 8.9 L ABG Oxyhemoglobin ABG Sodium ABG Potassium ABG Chloride ABG Glucose Carboxyhemoglobin Sodium Potassium Chloride Carbon Dioxide BUN Creatinine Glucose POC Glucose 124 H Calcium Magnesium Ferritin AST Alkaline Phosphatase Lactate Dehydrogenase C-Reactive Protein Total Protein Albumin Arterial Blood Glucose Arterial Blood Ionized Calcium Urine WBC (Auto) Coronavirus (PCR) 09/06/20 09/06/20 09/06/20 07:29 07:29 12:02 WBC 11.3 H RBC 2.83 L Hgb 7.8 L Hct 24.3 L MCV MCH MCHC RDW 17.7 H Lymph % (Auto) Coffee % (Auto) Eos % (Auto) Lymph # (Auto) Seg Neutrophils % Seg Neutrophils # PT INR APTT D-Dimer Heparin Anti-Xa Level ABG pH POC ABG pCO2 POC ABG pO2 ABG pO2 ABG HCO3 ABG O2 Saturation ABG Base Excess ABG Hemoglobin ABG Oxyhemoglobin ABG Sodium ABG Potassium ABG Chloride ABG Glucose Carboxyhemoglobin Sodium 151 H Potassium Chloride 117.6 H Carbon Dioxide BUN 24 H Creatinine Glucose 159 H POC Glucose 158 H Calcium 7.7 L Magnesium Ferritin AST Alkaline Phosphatase Lactate Dehydrogenase C-Reactive Protein Total Protein Albumin Arterial Blood Glucose Arterial Blood Ionized Calcium Urine WBC (Auto) Coronavirus (PCR) 09/07/20 09/08/20 09/08/20 05:21 04:31 04:35 WBC RBC Hgb 7.4 L Hct 22.7 L MCV MCH MCHC RDW Lymph % (Auto) Coffee % (Auto) Eos % (Auto) Lymph # (Auto) Seg Neutrophils % Seg Neutrophils # PT INR APTT D-Dimer Heparin Anti-Xa Level ABG pH POC ABG pCO2 49.1 H POC ABG pO2 46.0 L 58.6 L ABG pO2 ABG HCO3 ABG O2 Saturation ABG Base Excess ABG Hemoglobin 8.6 L 7.8 L ABG Oxyhemoglobin 87.7 L ABG Sodium 145.1 H ABG Potassium ABG Chloride 116.0 H 116.0 H ABG Glucose 238 H 255 H Carboxyhemoglobin Sodium Potassium Chloride Carbon Dioxide BUN Creatinine Glucose POC Glucose Calcium Magnesium Ferritin AST Alkaline Phosphatase Lactate Dehydrogenase C-Reactive Protein Total Protein Albumin Arterial Blood Glucose 238 H 255 H Arterial Blood Ionized Calcium Urine WBC (Auto) Coronavirus (PCR) Chest x-ray: image reviewed (persistent but improving bilateral infiltrates) Allied health notes reviewed: nursing
--- NOTE | 2020-09-08 16:21 | Progress Note ---
Assessment and Plan Cultures: 08/16/2020 SARS CoV2 PCR: Negative 08/29/2020 SARS CoV2 PCR: Positive 08/15/2020 urine culture: No growth 08/24/2020 blood culture: No growth 08/28/2020 blood culture: No growth 08/28/2020 urine culture: No growth MRSA PCR negative A/P: 64-year-old male with hypertension, coronary artery disease, peripheral vascular disease, gout, alcohol dependence was admitted to the hospital on 08/15/2020 due to bleeding from his left foot which is a site of a previous surgery. Patient was noted to have wound dehiscence complicated by wound necrosis. Was seen by vascular surgery. He underwent a TMA. Due to fever, patient was receiving IV levofloxacin for UTI. COVID-19 test done on 08/29/2020 for placement reasons came back positive. Patient has been having intermittent fevers since 08/28/2020. 09/02/2020, a code MET was called due to tachypnea and labored respirations: #Shock: Probably from severe COVID-19. #Bilateral pneumonia: Secondary to COVID-19. Patient with severe hypoxia, elevated inflammatory markers. Recently had completed levofloxacin. #Acute hypoxic respiratory failure: Now intubated #Peripheral vascular disease, wound dehiscence and necrosis: underwent TMA by vascular surgery #Coronary artery disease, CHF Recs: -Continue IV/PO Dexamethasone 6 mg daily x 10 days -Completed remdesivir -Continue empiric antibiotics (Aztreonam D6 of 7 Procal elevated. -Stop vancomycin, MRSA PCR negative -prophylactic anticoagulation based on d-dimer per hospital protocol -trend ferritin, LDH, d-dimer, CRP ordered today Corry Perrin MD [facility] ([facility]) Office [phone] Subjective Date of service: 09/08/20 Principal diagnosis: Ac hypoxemic resp failure; COVID-19; Pneumonia; Sepsis; PVD; L. foot ulcer Interval history: Remains afebrile for 3 days. Remains on the ventilator FiO2 65%. Objective - Exam Narrative Exam: Physical Exam: reviewed ED and hospitalist notes. Deferred to prevent COVID-19 transmission. - Constitutional Vitals: Vital Signs Temp Pulse Resp BP Pulse Ox 98.8 F 69 22 104/48 93 09/08/20 12:00 09/08/20 14:15 09/08/20 14:15 09/08/20 14:15 09/08/20 14:15 Temperature -Last 24 Hours Temperature 98.8 F Temperature 99.0 F Temperature 98.6 F Temperature 97.4 F Temperature 98.9 F - Labs CBC & Chem 7: 09/08/20 04:35 09/06/20 07:29 Labs: Abnormal lab results 09/08/20 09/08/20 09/08/20 Range/Units 04:31 04:35 12:45 Hgb 7.4 L (11.8-15.2) gm/dl Hct 22.7 L (35.5-45.6) % POC ABG pCO2 49.1 H (32.0-48.0) mmHg POC ABG pO2 58.6 L (83-108) mmHg ABG Hemoglobin 7.8 L (12.0-17.5) ABG Oxyhemoglobin 87.7 L (94-98) ABG Sodium 145.1 H (136.0-145.0) mmol/L ABG Chloride 116.0 H (98-107) mmol/L ABG Glucose 255 H (65-95) mg/dL POC Glucose 270 H (70-105) mg/dL Arterial Blood Glucose 255 H (65-95) mg/dL
[2020-09-09] MEDS: fentaNYL DRIP Premix 2,000 MCG/100 ML BAG IV SCH (02:40)
--- NOTE | 2020-09-09 04:55 | XRay Report ---
CHEST 1 VIEW 0412 INDICATION / CLINICAL INFORMATION: follow up respiratory failure COMPARISON: 09/08/2020 FINDINGS: SUPPORT DEVICES: Stable HEART / MEDIASTINUM: Stable LUNGS / PLEURA: Bilateral infiltrates appear mildly improved. No pneumothorax. ADDITIONAL FINDINGS: No significant additional findings. Signer Name: Edy Roberts MD Signed: 09/09/2020 4:51 AM Workstation Name: [id number]
[2020-09-09] MEDS: AZTREONAM/NS 1 GM/50 ML 1 GM/50 ML VIAL IV SCH ×3 (05:18→22:52)
[2020-09-09] MEDS: CILOSTAZOL 100 MG TAB PO SCH ×2 (10:35→22:53)
[2020-09-09] MEDS: CLOPIDOGREL 75 MG TAB PO SCH (10:35)
[2020-09-09] MEDS: ZINC SULFATE 220 MG CAP PO SCH ×2 (10:35→22:53)
[2020-09-09] MEDS: LANSOPRAZOLE 30 MG SOLUTAB FEEDTUBE SCH (10:35)
[2020-09-09] MEDS: METOPROLOL TARTRATE 50 MG TAB PO SCH ×2 (10:35→22:45)
[2020-09-09] MEDS: ENOXAPARIN 100 MG/1 ML INJ SUB-Q SCH ×2 (10:36→22:53)
[2020-09-09] MEDS: dexAMETHasone 4 MG/ML VIAL IV SCH (10:36)
[2020-09-09] MEDS: THIAMINE 100 MG TAB PO SCH (10:37)
[2020-09-09] MEDS: amLODIPine 10 MG TAB PO SCH (10:37)
[2020-09-09] MEDS: FOLIC ACID 1 MG TAB PO SCH (10:37)
[2020-09-09] MEDS: ASCORBIC ACID 500 MG TAB PO SCH ×2 (10:38→22:53)
--- NOTE | 2020-09-09 12:18 | Progress Note ---
Assessment and Plan - Patient Problems (1) Sepsis Current Visit: Yes Status: Acute Plan to address problem: Sepsis protocol: CBC, CMP, IV fluid resuscitation therapy as clinically indicated, IV antibiotic therapy, monitor urine output every shift, maintain mean arterial blood pressure greater than or equal to 65, The high probability of a clinically significant, sudden or life threatening deterioration of the [cardiac, pulmonary, renal, infectious disease] system(s) required my full and direct attention, intervention and personal management. The aggregate critical care time was [65] minutes. This time is in addition to time spent performing reported procedures but includes the following: [x] Data Review and interpretation [x] Patient assessment and monitoring of vital signs [x] Documentation [x] Medication orders and management (2) Acute hypoxemic respiratory failure Current Visit: Yes Status: Acute Plan to address problem: Wean vent as tolerated, daily ABG, spontaneous breathing trial daily, chest x- ray, sedation holiday, supportive care. (3) Necrosis of surgical wound Current Visit: Yes Status: Acute Plan to address problem: Surgery team consulted. pain control, supportive care. Further care as per vascular surgery team. (4) CHF (congestive heart failure) Current Visit: No Status: Chronic Qualifiers: Heart failure chronicity: chronic Plan to address problem: Strict I/O, monitor urine output every shift, daily weight, monitor fluid balance, afterload reduction, blood pressure control. (5) Hypertension Current Visit: Yes Status: Acute Qualifiers: Hypertension type: essential hypertension Qualified Code(s): I10 - Essential (primary) hypertension Plan to address problem: Monitor blood pressure every shift, continue medical management (6) UTI (urinary tract infection) Current Visit: Yes Status: Acute Qualifiers: Encounter type: initial encounter Plan to address problem: CBC, CMP, urinalysis, IV antibiotic therapy. (7) Coronavirus infection Current Visit: Yes Status: Acute Plan to address problem: Coronavirus protocol: IV antibiotic therapy, IV steroid therapy, supplemental oxygen, vitamin C supplementation, zinc supplementation, (8) DVT prophylaxis Current Visit: Yes Status: Acute Plan to address problem: SCD to bilateral lower extremities while in bed, anticoagulation as per surgical team (9) Toxic metabolic encephalopathy Current Visit: Yes Status: Acute Plan to address problem: Supportive care, treat sepsis, (10) Advance care planning Current Visit: Yes Status: Acute Plan to address problem: Disease education conducted, patient is full code, prognosis discussed, care plan discussed, patient knowledges understanding and agreement with care plan, +30 minutes History Interval history: 64 YO Male HD #25 with PVD, Coronavirus Infection, Acute Respiratory Failure, Sepsis, Pneumonia, Toxic Encephalopathy, Necrosis of Surgical wound. Patient resting in bed. No acute decompensation overnight. No improvement overnight. Patient remains critically ill. Patient prognosis is poor to guarded. Hospitalist Physical - Constitutional Vitals: Temp Pulse Resp BP Pulse Ox 98.4 F 77 15 128/53 97 09/09/20 03:23 09/09/20 10:37 09/09/20 09:45 09/09/20 10:37 09/09/20 09:45 General appearance: Present: no acute distress, well-nourished - EENT Eyes: Present: miosis ENT: hearing decreased - Neck Neck: Present: supple - Respiratory Respiratory effort: labored Respiratory: bilateral: diminished, rhonchi - Cardiovascular Rhythm: regular Heart Sounds: Present: S1 & S2 - Extremities Extremities: no ischemia Extremity abnormal: edema Peripheral Pulses: abnormal (Capillary refill greater than 3.5 seconds) - Abdominal General gastrointestinal: soft, non-tender, non-distended - Integumentary Integumentary: Present: clear, dry - Psychiatric Psychiatric: no appropriate mood/affect, no intact judgment & insight, no memory intact - Neurologic Neurologic: CNII-XII intact, no gait normal Results - Labs CBC & Chem 7: 09/08/20 04:35 09/06/20 07:29 Labs: Laboratory Last Values WBC 11.3 K/mm3 (4.5-11.0) H 09/06/20 07:29 RBC 2.83 M/mm3 (3.65-5.03) L 09/06/20 07:29 Hgb 7.4 gm/dl (11.8-15.2) L 09/08/20 04:35 Hct 22.7 % (35.5-45.6) L 09/08/20 04:35 MCV 86 fl (84-94) 09/06/20 07:29 MCH 28 pg (28-32) 09/06/20 07:29 MCHC 32 % (32-34) 09/06/20 07:29 RDW 17.7 % (13.2-15.2) H 09/06/20 07:29 Plt Count 244 K/mm3 (140-440) 09/08/20 04:35 Lymph % (Auto) 12.7 % (13.4-35.0) L 09/02/20 15:55 [place] % (Auto) 4.5 % (0.0-7.3) 09/02/20 15:55 Eos % (Auto) 0.0 % (0.0-4.3) 09/02/20 15:55 Baso % (Auto) 0.3 % (0.0-1.8) 09/02/20 15:55 Lymph # (Auto) 1.4 K/mm3 (1.2-5.4) 09/02/20 15:55 [place] # (Auto) 0.5 K/mm3 (0.0-0.8) 09/02/20 15:55 Eos # (Auto) 0.0 K/mm3 (0.0-0.4) 09/02/20 15:55 Baso # (Auto) 0.0 K/mm3 (0.0-0.1) 09/02/20 15:55 Seg Neutrophils % 82.5 % (40.0-70.0) H 09/02/20 15:55 Seg Neutrophils # 9.3 K/mm3 (1.8-7.7) H 09/02/20 15:55 PT 15.5 Sec. (12.2-14.9) H 09/02/20 15:55 INR 1.23 (0.87-1.13) H 09/02/20 15:55 APTT 50.2 Sec. (24.2-36.6) H 09/02/20 15:55 D-Dimer 1449.12 ng/mlDDU (0-234) H 09/08/20 19:15 Heparin Anti-Xa Level 0.47 U.I./ml (0.3-0.7) 09/06/20 07:29 ABG pH 7.361 (7.320-7.450) 09/09/20 04:40 POC ABG pCO2 42.8 mmHg (32.0-48.0) 09/09/20 04:40 ABG pCO2 29.5 mm Hg 09/06/20 04:15 POC ABG pO2 75.1 mmHg (83-108) L 09/09/20 04:40 ABG pO2 184.9 mm Hg (80.0-90.0) H 09/06/20 04:15 POC ABG HCO3 23.7 09/09/20 04:40 ABG HCO3 19.9 mmol/L (20.0-26.0) L 09/06/20 04:15 ABG O2 Saturation 99.2 % (95.0-99.0) H 09/06/20 04:15 ABG O2 Content 12.6 (0.0-44) 09/06/20 04:15 POC ABG Base Excess -1.7 09/09/20 04:40 ABG Base Excess -3.5 mmol/L (-2.0-3.0) L 09/06/20 04:15 ABG Hemoglobin 10.7 (12.0-17.5) L 09/09/20 04:40 ABG Oxyhemoglobin 93.9 (94-98) L 09/09/20 04:40 ABG Carboxyhemoglobin 1.2 % (0.0-5.0) 09/06/20 04:15 ABG Methemoglobin 0.3 (0.0-1.5) 09/09/20 04:40 ABG Sodium 146.7 mmol/L (136.0-145.0) H 09/09/20 04:40 ABG Potassium 4.1 mmol/L (3.40-4.50) 09/09/20 04:40 ABG Chloride 113.0 mmol/L (98-107) H 09/09/20 04:40 ABG Glucose 420 mg/dL (65-95) H 09/09/20 04:40 Oxyhemoglobin 97.5 % (95.0-99.0) 09/06/20 04:15 Carboxyhemoglobin 0.2 (0.5-1.5) L 09/09/20 04:40 FiO2 65 09/09/20 04:40 Sodium 151 mmol/L (137-145) H 09/06/20 07:29 Potassium 4.0 mmol/L (3.6-5.0) 09/06/20 07:29 Chloride 117.6 mmol/L (98-107) H 09/06/20 07:29 Carbon Dioxide 25 mmol/L (22-30) 09/06/20 07:29 Anion Gap 12 mmol/L 09/06/20 07:29 BUN 24 mg/dL (9-20) H 09/06/20 07:29 Creatinine 1.1 mg/dL (0.8-1.3) 09/06/20 07:29 Estimated GFR > 60 ml/min 09/06/20 07:29 BUN/Creatinine Ratio 22 % 09/06/20 07:29 Glucose 159 mg/dL (75-100) H 09/06/20 07:29 POC Glucose 294 mg/dL (70-105) H 09/08/20 17:26 Lactic Acid 1.40 mmol/L (0.7-2.0) 09/02/20 15:55 Calcium 7.7 mg/dL (8.4-10.2) L 09/06/20 07:29 Magnesium 1.80 mg/dL (1.7-2.3) 08/31/20 04:30 Ferritin 1485.0 ng/mL (30.0-300.0) H 09/08/20 19:15 Total Bilirubin 0.40 mg/dL (0.1-1.2) 09/05/20 07:17 AST 69 units/L (5-40) H 09/05/20 07:17 ALT 28 units/L (7-56) 09/05/20 07:17 Alkaline Phosphatase 168 units/L (35-129) H 09/05/20 07:17 Lactate Dehydrogenase 541 units/L (91-180) H 09/08/20 19:15 C-Reactive Protein 4.90 mg/dL (0.00-1.30) H 09/08/20 19:15 Total Protein 5.4 g/dL (6.3-8.2) L 09/05/20 07:17 Albumin 2.7 g/dL (3.9-5) L 09/05/20 07:17 Albumin/Globulin Ratio 1.0 % 09/05/20 07:17 Procalcitonin 0.16 ng/mL (<0.15) 09/08/20 19:15 Arterial Blood Glucose 420 mg/dL (65-95) H 09/09/20 04:40 Arterial Blood Ionized Calcium 4.8 mg/dL (4.6-5.3) 09/09/20 04:40 Urine Color Yellow (Yellow) 08/15/20 Unknown Urine Turbidity Clear (Clear) 08/15/20 Unknown Urine pH 6.0 (5.0-7.0) 08/15/20 Unknown Ur Specific [place] 1.017 (1.003-1.030) 08/15/20 Unknown Urine Protein 100 mg/dl mg/dL (Negative) 08/15/20 Unknown Urine Glucose (UA) 50 mg/dL (Negative) 08/15/20 Unknown Urine Ketones Neg mg/dL (Negative) 08/15/20 Unknown Urine Blood Lg (Negative) 08/15/20 Unknown Urine Nitrite Neg (Negative) 08/15/20 Unknown Urine Bilirubin Neg (Negative) 08/15/20 Unknown Urine Urobilinogen < 2.0 mg/dL (<2.0) 08/15/20 Unknown Ur Leukocyte Esterase Sm (Negative) 08/15/20 Unknown Urine WBC (Auto) 31.0 /HPF (0.0-6.0) H 08/15/20 Unknown Urine RBC (Auto) 46.0 /HPF (0.0-6.0) 08/15/20 Unknown Urine Mucus Few /HPF 08/15/20 Unknown Nasal Screen MRSA (PCR) Negative (Negative) 09/06/20 12:41 Vancomycin Trough 14.2 ug/mL (5.0-20.0) 09/05/20 11:12 Coronavirus (PCR) Positive (Negative) A 08/29/20 Unknown Microbiology: Microbiology 09/05/20 09:13 Tracheal Aspirate Sputum Culture - Final Barby Albicans Renae/IV: Voiding Method Indwelling Catheter IV Catheter Type [Right Hand] INT / Saline Lock IV Catheter Type [Right Upper PICC Line arm] IV Catheter Type [Right Wrist] INT / Saline Lock IV Catheter Type [Right INT / Saline Lock Forearm] IV Catheter Type [Left Hand] INT / Saline Lock Active Medications - Current Medications Current Medications: Generic Name Dose Route Start Last Admin Trade Name Freq PRN Reason Stop Dose Admin Acetaminophen 650 mg 08/15/20 18:13 09/02/20 12:17 Acetaminophen 325 Mg Tab PO 650 mg Q4H PRN Administration Pain MILD(1-3)/Fever >100.5/REYES Albuterol 2.5 mg 08/15/20 18:13 08/20/20 12:53 Albuterol 2.5 Mg/3 Ml Nebu IH 2.5 mg Q4HRT PRN Administration Shortness Of Breath Amlodipine Besylate 10 mg 08/16/20 10:00 09/09/20 10:37 Amlodipine 10 Mg Tab PO 10 mg QDAY DELFINO Administration Lipase/Protease/Amylase 1 each 09/06/20 11:37 Lipase 10,500/Protease 25,000/Amylase 43,750 (Units) Dr Lisa FEEDTUBE PRN PRN For Clogged Feeding Tube Ascorbic Acid 500 mg 09/03/20 22:00 09/09/20 10:38 Ascorbic Acid 500 Mg Tab PO 500 mg BID DELFINO Administration Atorvastatin Calcium 40 mg 08/15/20 22:00 09/08/20 21:05 Atorvastatin 40 Mg Tab PO 40 mg QHS DELFINO Administration Cilostazol 100 mg 08/15/20 22:00 09/09/20 10:35 Cilostazol 100 Mg Tab PO 100 mg BID DELFINO Administration Clopidogrel Bisulfate 75 mg 08/16/20 10:00 09/09/20 10:35 Clopidogrel 75 Mg Tab PO 75 mg QDAY DELFINO Administration Dexamethasone 6 mg 09/02/20 16:00 09/09/20 10:36 Dexamethasone 4 Mg/Ml Vial IV 09/12/20 15:59 6 mg DAILY DELFINO Administration Enoxaparin Sodium 90 mg 09/05/20 22:00 09/09/20 10:36 Enoxaparin 100 Mg/1 Ml Inj SUB-Q 90 mg Q12HR DELFINO Administration Fentanyl 50 mcg 09/05/20 05:23 Fentanyl 100 Mcg/2 Ml Inj IV Q10MIN PRN ANALGESIA Folic Acid 1 mg 08/16/20 10:00 09/09/20 10:37 Folic Acid 1 Mg Tab PO 1 mg QDAY DELFINO Administration Hydrophilic Ointment 1 applic 09/05/20 05:23 Lip Therapy Vaseline TP Q2HR PRN Dry Lips Sodium Chloride 500 mls @ 1 mls/hr 09/02/20 13:41 09/02/20 18:53 Nacl 0.9% 500 Ml IV 1 mls/hr DIRECT PRN Administration ARTERIAL LINE FLUSH Norepinephrine 4 mg in 250 mls @ 7.5 mls/hr 09/02/20 15:00 09/07/20 06:50 Levophed Drip 4 Mg/Ns 250 Ml IV 0 mcg/min TITR DELFINO 0 mls/hr Titration Protocol 2 MCG/MIN Vasopressin 20 unit/ Sodium 101 mls @ 9.09 mls/hr 09/02/20 16:00 Chloride IV TITR DELFINO Protocol 0.03 UNITS/MIN Aztreonam 1 gm in 50 mls @ 50 mls/hr 09/03/20 14:00 09/09/20 05:18 Azactam/Ns 1 Gm/50 Ml IV 50 mls/hr Q8H DELFINO Administration Protocol Fentanyl Citrate 2,000 mcg in 100 mls @ 4.465 mls/hr 09/05/20 06:00 09/09/20 02:40 Fentanyl Drip Premix IV 1 mcg/kg/hr TITR DELFINO 4.465 mls/hr Administration Protocol 1 MCG/KG/HR Midazolam HCl 100 mg/ Sodium 100 mls @ 2 mls/hr 09/05/20 06:00 09/06/20 08:30 Chloride IV 0 mg/hr TITR DELFINO 0 mls/hr Titration Protocol 2 MG/HR Lansoprazole 30 mg 09/05/20 10:00 09/09/20 10:35 Lansoprazole 30 Mg Solutab FEEDTUBE 30 mg QDAY DELFINO Administration Loperamide HCl 2 mg 08/26/20 23:00 08/28/20 12:51 Loperamide 2 Mg Cap PO 2 mg PRN PRN Administration Diarrhea Lorazepam 1 mg 09/06/20 17:25 Lorazepam 2 Mg/Ml Vial IV Q4H PRN Anxiety Metoprolol Tartrate 50 mg 08/15/20 22:00 09/09/20 10:35 Metoprolol Tartrate 50 Mg Tab PO 50 mg BID DELFINO Administration Midazolam HCl 2 mg 09/05/20 05:23 09/05/20 05:56 Midazolam 2 Mg/2 Ml Inj IV 2 mg Q10MIN PRN Administration Sedation Multi-Ingred Cream/Lotion/Oil/Oint 1 applic 09/05/20 05:23 Mineral Oil/Petrolatum, White Ophth Oint 3.5 Gm OU Q4HR PRN Dry Eye(s) Ondansetron HCl 4 mg 08/15/20 18:13 08/18/20 17:46 Ondansetron 4 Mg/2 Ml Inj IV 4 mg Q8H PRN Administration Nausea And Vomiting Simple Syrup 15 ml 09/06/20 11:37 Simple Syrup 15 Ml FEEDTUBE PRN PRN Hypoglycemia Simple Syrup 30 ml 09/06/20 11:37 Simple Syrup 15 Ml FEEDTUBE PRN PRN Hypoglycemia Sodium Bicarbonate 325 mg 09/06/20 11:37 Sodium Bicarbonate 325 Mg Tab FEEDTUBE PRN PRN For Clogged Feeding Tube Sodium Chloride 10 ml 08/15/20 22:00 09/09/20 10:38 Sodium Chloride 0.9% 10 Ml Flush Syringe IV 10 ml BID DELFINO Administration Sodium Chloride 10 ml 08/15/20 18:13 Sodium Chloride 0.9% 10 Ml Flush Syringe IV PRN PRN LINE FLUSH Thiamine HCl 100 mg 08/16/20 10:00 09/09/20 10:37 Thiamine 100 Mg Tab PO 100 mg QDAY DELFINO Administration Zinc Sulfate 220 mg 09/03/20 22:00 09/09/20 10:35 Zinc Sulfate 220 Mg Cap PO 220 mg BID DELFINO Administration Nutrition/Malnutrition Assess - Dietary Evaluation Nutrition/Malnutrition Findings: Nutrition Notes Start: 08/21/20 14:41 Freq: Status: Active Protocol: Document 09/06/20 11:21 CW (Rec: 09/06/20 11:37 CW [email or web address]) Co-Sign 09/06/20 11:21 LP Nutrition Notes Need for Assessment generated from: MD Order Initial or Follow up Reassessment Current Diagnosis Coronary Artery Disease,Sepsis ,Hypertension,Heart Failure, Hyperlipidemia Other Pertinent Diagnosis PVD, ETOH dep, acute resp failure, pneu, gout, (L) foot ulcer Current Diet no diet Labs/Tests Na 151 BUN 24 BG 159 Pertinent Medications Levaquin/Dextrose at 100ml/hr Decadron Norepinephrine Height 5 ft 4 in Weight 90.2 kg [place] Body Weight (kg) 59.09 BMI 34.1 Weight change and time frame Wt change noted Weight Status Obese Subjective/Other Information MD consult for TF. Pt remains intubated and on hold in ED. Percent of energy/protein needs met: 0%/0% Burn Absent Trauma Absent GI Symptoms None Current % PO Negligible Minimum of two criteria No Reduced [place] Tender Strength N/A (non-severe) #2 Nutrition Diagnosis Inadequate oral intake Diagnosis Progress(for reassessment Continues documentation) #1 Nutrition Diagnosis Increased nutrient needs ( specify in comment below) Diagnosis Progress(for reassessment Continues documentation) Is patient on ventilator? Yes Is Patient Ambulatory and/or Out of Bed No REE-([facility]-confined to bed) 1934.568 Kcal/Kg value to use for calculation 19 Approximate Energy Requirements Using 1714 kcal/Kg Calculation Used for Recommendations Kcal/kg Additional Notes Protein needs are >/=2g/kg IBW (>/=118g/day) Fluid needs are 1ml/kcal Nutrition Intervention Change Diet Order: Start TF Nutrition Support: Vital High Protein at 70ml/hr For hypernatremia flush 200ml q4h, once hypernatremia is resolved flush 100ml q4h Kcal 1,680 Protein (gm) 147 Fluid (mL) 1,404 Add Supplement/Snack (indicate name/kcal [place] BID /protein ) Provides kCal: 190 Provides Protein (gm) 5 Goal #1 TF start when medically able Goal #2 Meet at least 75% of energy and protein needs Goal #3 Wound healing Anticipated Discharge Needs: Unable to determine at this time Follow-Up By: 09/10/20 Additional Comments FU new TF, Na lab
--- NOTE | 2020-09-09 15:21 | Progress Note ---
Assessment and Plan Acute hypoxemic respiratory failure, on mechanical ventilatory support. COVID-19 infection. Bilateral pneumonia versus pulmonary edema. Severe sepsis with shock. Peripheral vascular disease. Anemia that is microcytic. History of alcohol abuse. Acute encephalopathy. History of obesity. History of coronary artery disease. History of gout. Hyperlipidemia. Hypertension, now hypotensive. Left lower extremity / left foot ulcer. - repeat BMP in am and address - tighten glycemic control (Lantus 5 units sq daily and SSI) - continue current vent settings - continue daily SAT and SBT assessment as tolerated - follow electrolytes; s/p FMS re: diarrhea - continue to wean supplemental oxygen for target O2 sat's > 92% acutely - continue care as below otherwise; - VAP bundle addressed - continue lung protective strategies - continue bronchodilators with pulmonary hygiene per RT - wean per pulmonary driven protocols otherwise - continue accuchecks with glycemic control per SSI (While critically ill target blood glucose of 140-180 mg/dL; avoid hypoglycemia) - sedation prn for target RASS 0 to -1 - avoid nephrotoxins, renally dose all medications - accuchecks with glycemic control per SSI (While critically ill target blood glucose of 140-180 mg/dL; avoid hypoglycemia) - avoid benzodiazepine's, reduce the possibility of delirium - complete AB's per ID rec's - prn analgesia per CPOT score - Maintenance of sleep-wake cycle, avoid delirium - enteral nutritional support at goal rate as tolerated - G.I. & VTE prophylaxis - PT/OT/ROM exercises - continue mobility protocols for pressure ulcer prophylaxis - Monitor hemodynamics closely - continue other care per attending / other consultants - discharge planning ongoing concurrently COVID SPECIFIC INTERVENTIONS - completed Remdesivir as per ID/Pulmonary developed protocols - continue systemic steroids for severe COVID-19 infection empirically - follow repeat COVID tests results - zinc and vitamin C supplementation - Monitor inflammatory markers per facility protocol - ferritin, Ddimer, CRP - therapeutic anticoagulation per system Protocol based on d-dimer and clinical considerations - Continue contact and airborne isolation .... Re-evaluate in am & prn CONDITION: CRITICAL PROGNOSIS: GUARDED CODE STATUS: FULL CODE The high probability of a clinically significant, sudden or life-threatening deterioration of the [respiratory, cardiovascular, renal & neurologic] system(s) required my full and direct attention, intervention and personal management. The aggregate critical care time was [36] minutes without overlap. Time includes spent on; [x] Data Review and interpretation [x] Patient assessment and monitoring of vital signs [x] Documentation [x] Medication orders and management Subjective Date of service: 09/09/20 Principal diagnosis: Ac hypoxemic resp failure; COVID-19; Pneumonia; Sepsis; PVD; L. foot ulcer Interval history: Patient is seen today for: Acute hypoxemic respiratory failure; COVID-19 infection; Bilateral pneumonia versus pulmonary edema; Severe sepsis with shock; Peripheral vascular disease; Acute encephalopathy; Left lower extremity / left foot ulcer. Seen and examined at bedside; 24hour events reviewed; nursing and respiratory care staff consulted; no adverse overnight events reported to me; resting peacefully in bed; remains on MVS; FiO2 remains at 65% with minimal room to wean; + diarrhea since yesterday per RN; no emesis or overt aspiration Objective Vital Signs - 12hr 09/09/20 09/09/20 09/09/20 03:23 03:30 03:36 Temperature 98.4 F Pulse Rate 71 66 Pulse Rate [ From Monitor] Respiratory 18 Rate Blood Pressure 118/50 118/50 O2 Sat by Pulse 95 96 Oximetry 09/09/20 09/09/20 09/09/20 03:46 04:00 04:15 Temperature Pulse Rate 79 66 75 Pulse Rate [ From Monitor] Respiratory 17 23 21 Rate Blood Pressure 123/52 122/57 130/67 O2 Sat by Pulse 95 96 97 Oximetry 09/09/20 09/09/20 09/09/20 04:30 04:45 05:00 Temperature Pulse Rate 88 73 68 Pulse Rate [ From Monitor] Respiratory 20 16 17 Rate Blood Pressure 120/59 114/49 121/52 O2 Sat by Pulse 95 96 96 Oximetry 09/09/20 09/09/20 09/09/20 05:15 05:30 05:45 Temperature Pulse Rate 69 74 72 Pulse Rate [ From Monitor] Respiratory 17 18 20 Rate Blood Pressure 119/53 127/58 116/50 O2 Sat by Pulse 96 95 96 Oximetry 09/09/20 09/09/20 09/09/20 06:00 06:15 06:30 Temperature Pulse Rate 75 74 79 Pulse Rate [ From Monitor] Respiratory 16 14 20 Rate Blood Pressure 120/52 119/51 131/53 O2 Sat by Pulse 96 97 95 Oximetry 09/09/20 09/09/20 09/09/20 06:45 07:00 07:15 Temperature Pulse Rate 70 74 81 Pulse Rate [ From Monitor] Respiratory 13 17 15 Rate Blood Pressure 125/56 121/50 122/53 O2 Sat by Pulse 96 97 97 Oximetry 09/09/20 09/09/20 09/09/20 07:30 07:46 08:00 Temperature Pulse Rate 69 68 71 Pulse Rate [ From Monitor] Respiratory 16 17 17 Rate Blood Pressure 114/54 119/53 125/53 O2 Sat by Pulse 97 96 96 Oximetry 09/09/20 09/09/20 09/09/20 08:05 08:15 08:30 Temperature Pulse Rate 74 72 74 Pulse Rate [ From Monitor] Respiratory 19 17 Rate Blood Pressure 130/51 135/51 119/51 O2 Sat by Pulse 98 96 96 Oximetry 09/09/20 09/09/20 09/09/20 08:46 09:00 09:15 Temperature Pulse Rate 84 80 75 Pulse Rate [ From Monitor] Respiratory 22 19 20 Rate Blood Pressure 123/55 126/56 122/50 O2 Sat by Pulse 97 95 95 Oximetry 09/09/20 09/09/20 09/09/20 09:30 09:45 10:00 Temperature Pulse Rate 75 73 79 Pulse Rate [ From Monitor] Respiratory 18 15 16 Rate Blood Pressure 127/53 124/50 130/51 O2 Sat by Pulse 96 97 96 Oximetry 09/09/20 09/09/20 09/09/20 10:15 10:30 10:35 Temperature Pulse Rate 74 74 83 Pulse Rate [ From Monitor] Respiratory 20 19 Rate Blood Pressure 136/54 128/53 128/53 O2 Sat by Pulse 96 96 Oximetry 09/09/20 09/09/20 09/09/20 10:37 10:45 11:00 Temperature Pulse Rate 77 74 74 Pulse Rate [ From Monitor] Respiratory 18 14 Rate Blood Pressure 128/53 132/56 121/56 O2 Sat by Pulse 96 95 Oximetry 09/09/20 09/09/20 09/09/20 11:15 11:30 11:45 Temperature Pulse Rate 67 76 64 Pulse Rate [ From Monitor] Respiratory 16 17 16 Rate Blood Pressure 121/60 122/52 117/54 O2 Sat by Pulse 96 97 96 Oximetry 09/09/20 09/09/20 09/09/20 12:00 12:15 12:20 Temperature Pulse Rate 73 71 70 Pulse Rate [ 71 From Monitor] Respiratory 15 21 Rate Blood Pressure 115/53 137/53 121/52 O2 Sat by Pulse 95 96 96 Oximetry 09/09/20 09/09/20 09/09/20 12:30 12:45 13:00 Temperature Pulse Rate 72 69 73 Pulse Rate [ From Monitor] Respiratory 11 L 16 12 Rate Blood Pressure 127/52 122/52 121/55 O2 Sat by Pulse 93 93 92 Oximetry 09/09/20 09/09/20 09/09/20 13:15 13:30 13:45 Temperature Pulse Rate 74 73 75 Pulse Rate [ From Monitor] Respiratory 14 13 22 Rate Blood Pressure 121/52 125/52 117/52 O2 Sat by Pulse 95 95 Oximetry 09/09/20 09/09/20 14:00 14:16 Temperature Pulse Rate 70 74 Pulse Rate [ From Monitor] Respiratory 22 18 Rate Blood Pressure 113/52 114/53 O2 Sat by Pulse 94 95 Oximetry Constitutional: no acute distress, other (elderly obese male with mildly increased respiratory effort at rest on MVS) Eyes: non-icteric ENT: oropharynx moist, other (ETT 24 cm MONICA) Neck: supple, no lymphadenopathy, no JVD Effort: mildly labored Ascultation: Bilateral: diminished breath sounds, rales (improved) Percussion: Bilateral: not dull Cardiovascular: regular rate and rhythm Gastrointestinal: normoactive bowel sounds, soft, non-tender, non-distended (protuberant) Integumentary: normal (in areas i examined; please see [facility] notes for full description) Extremities: no cyanosis, pink and warm, pulses normal, no ischemia or petechiae Neurologic: non-focal exam (grossly), pupils equal and round, other (lethargic) Psychiatric: other (unable to assess) CBC and BMP: 09/08/20 04:35 09/06/20 07:29 ABG, PT/INR, D-dimer: ABG ABG pH 7.361 (7.320-7.450) 09/09/20 04:40 POC ABG pCO2 42.8 mmHg (32.0-48.0) 09/09/20 04:40 ABG pCO2 29.5 mm Hg 09/06/20 04:15 POC ABG pO2 75.1 mmHg (83-108) L 09/09/20 04:40 ABG pO2 184.9 mm Hg (80.0-90.0) H 09/06/20 04:15 POC ABG HCO3 23.7 09/09/20 04:40 ABG O2 Saturation 99.2 % (95.0-99.0) H 09/06/20 04:15 PT/INR, D-dimer PT 15.5 Sec. (12.2-14.9) H 09/02/20 15:55 INR 1.23 (0.87-1.13) H 09/02/20 15:55 D-Dimer 1449.12 ng/mlDDU (0-234) H 09/08/20 19:15 Abnormal lab findings: Abnormal Labs 08/15/20 08/15/20 08/15/20 08:49 10:40 10:40 WBC RBC 2.96 L Hgb 9.0 L Hct 25.8 L MCV MCH MCHC 35 H RDW 16.2 H Lymph % (Auto) [place] % (Auto) Eos % (Auto) Lymph # (Auto) Seg Neutrophils % Seg Neutrophils # PT INR APTT D-Dimer Heparin Anti-Xa Level ABG pH POC ABG pCO2 POC ABG pO2 ABG pO2 ABG HCO3 ABG O2 Saturation ABG Base Excess ABG Hemoglobin ABG Oxyhemoglobin ABG Sodium ABG Potassium ABG Chloride ABG Glucose Carboxyhemoglobin Sodium Potassium Chloride Carbon Dioxide BUN Creatinine 0.7 L Glucose 188 H POC Glucose 212 H Calcium 8.3 L Magnesium Ferritin AST Alkaline Phosphatase Lactate Dehydrogenase C-Reactive Protein Total Protein Albumin Arterial Blood Glucose Arterial Blood Ionized Calcium Urine WBC (Auto) Coronavirus (PCR) 08/15/20 08/15/20 08/16/20 14:00 Unknown 04:43 WBC RBC 3.28 L Hgb 9.6 L Hct 29.3 L MCV MCH MCHC RDW 16.6 H Lymph % (Auto) [place] % (Auto) Eos % (Auto) 4.9 H Lymph # (Auto) Seg Neutrophils % Seg Neutrophils # PT INR APTT D-Dimer Heparin Anti-Xa Level ABG pH POC ABG pCO2 POC ABG pO2 ABG pO2 ABG HCO3 ABG O2 Saturation ABG Base Excess ABG Hemoglobin ABG Oxyhemoglobin ABG Sodium ABG Potassium ABG Chloride ABG Glucose Carboxyhemoglobin Sodium Potassium Chloride Carbon Dioxide BUN 8 L Creatinine 0.6 L Glucose 115 H POC Glucose Calcium Magnesium Ferritin AST Alkaline Phosphatase Lactate Dehydrogenase C-Reactive Protein Total Protein Albumin Arterial Blood Glucose Arterial Blood Ionized Calcium Urine WBC (Auto) 31.0 H Coronavirus (PCR) 08/16/20 08/18/20 08/20/20 04:43 15:17 07:12 WBC RBC Hgb 9.1 L Hct 27.2 L MCV MCH MCHC RDW Lymph % (Auto) [place] % (Auto) Eos % (Auto) Lymph # (Auto) Seg Neutrophils % Seg Neutrophils # PT INR APTT D-Dimer Heparin Anti-Xa Level ABG pH POC ABG pCO2 POC ABG pO2 ABG pO2 ABG HCO3 ABG O2 Saturation ABG Base Excess ABG Hemoglobin ABG Oxyhemoglobin ABG Sodium ABG Potassium ABG Chloride ABG Glucose Carboxyhemoglobin Sodium 135 L Potassium Chloride 97.5 L Carbon Dioxide BUN Creatinine 0.5 L Glucose 153 H 135 H POC Glucose Calcium Magnesium Ferritin AST Alkaline Phosphatase Lactate Dehydrogenase C-Reactive Protein Total Protein Albumin Arterial Blood Glucose Arterial Blood Ionized Calcium Urine WBC (Auto) Coronavirus (PCR) 08/20/20 08/20/20 08/20/20 07:12 07:12 08:07 WBC RBC Hgb Hct MCV MCH MCHC RDW Lymph % (Auto) [place] % (Auto) Eos % (Auto) Lymph # (Auto) Seg Neutrophils % Seg Neutrophils # PT INR 1.15 H APTT D-Dimer Heparin Anti-Xa Level ABG pH POC ABG pCO2 POC ABG pO2 ABG pO2 ABG HCO3 ABG O2 Saturation ABG Base Excess ABG Hemoglobin ABG Oxyhemoglobin ABG Sodium ABG Potassium ABG Chloride ABG Glucose Carboxyhemoglobin Sodium Potassium Chloride Carbon Dioxide BUN Creatinine Glucose 113 H POC Glucose 108 H Calcium Magnesium Ferritin AST Alkaline Phosphatase Lactate Dehydrogenase C-Reactive Protein Total Protein Albumin Arterial Blood Glucose Arterial Blood Ionized Calcium Urine WBC (Auto) Coronavirus (PCR) 08/20/20 08/20/20 08/21/20 16:32 22:34 07:42 WBC RBC Hgb Hct MCV MCH MCHC RDW Lymph % (Auto) [place] % (Auto) Eos % (Auto) Lymph # (Auto) Seg Neutrophils % Seg Neutrophils # PT INR APTT D-Dimer Heparin Anti-Xa Level ABG pH POC ABG pCO2 POC ABG pO2 ABG pO2 ABG HCO3 ABG O2 Saturation ABG Base Excess ABG Hemoglobin ABG Oxyhemoglobin ABG Sodium ABG Potassium ABG Chloride ABG Glucose Carboxyhemoglobin Sodium Potassium Chloride Carbon Dioxide BUN Creatinine Glucose POC Glucose 107 H 139 H 115 H Calcium Magnesium Ferritin AST Alkaline Phosphatase Lactate Dehydrogenase C-Reactive Protein Total Protein Albumin Arterial Blood Glucose Arterial Blood Ionized Calcium Urine WBC (Auto) Coronavirus (PCR) 08/21/20 08/21/20 08/21/20 08:14 08:14 11:31 WBC RBC 3.08 L Hgb 8.9 L Hct 27.0 L MCV MCH MCHC RDW 16.7 H Lymph % (Auto) [place] % (Auto) Eos % (Auto) Lymph # (Auto) Seg Neutrophils % Seg Neutrophils # PT INR APTT D-Dimer Heparin Anti-Xa Level ABG pH POC ABG pCO2 POC ABG pO2 ABG pO2 ABG HCO3 ABG O2 Saturation ABG Base Excess ABG Hemoglobin ABG Oxyhemoglobin ABG Sodium ABG Potassium ABG Chloride ABG Glucose Carboxyhemoglobin Sodium 136 L Potassium Chloride Carbon Dioxide BUN Creatinine Glucose 129 H POC Glucose 132 H Calcium Magnesium Ferritin AST Alkaline Phosphatase Lactate Dehydrogenase C-Reactive Protein Total Protein Albumin Arterial Blood Glucose Arterial Blood Ionized Calcium Urine WBC (Auto) Coronavirus (PCR) 08/24/20 08/25/20 08/26/20 10:57 18:39 11:57 WBC RBC Hgb Hct MCV MCH MCHC RDW Lymph % (Auto) [place] % (Auto) Eos % (Auto) Lymph # (Auto) Seg Neutrophils % Seg Neutrophils # PT INR APTT D-Dimer Heparin Anti-Xa Level ABG pH POC ABG pCO2 POC ABG pO2 ABG pO2 ABG HCO3 ABG O2 Saturation ABG Base Excess ABG Hemoglobin ABG Oxyhemoglobin ABG Sodium ABG Potassium ABG Chloride ABG Glucose Carboxyhemoglobin Sodium Potassium Chloride Carbon Dioxide BUN Creatinine Glucose POC Glucose 126 H 120 H 127 H Calcium Magnesium Ferritin AST Alkaline Phosphatase Lactate Dehydrogenase C-Reactive Protein Total Protein Albumin Arterial Blood Glucose Arterial Blood Ionized Calcium Urine WBC (Auto) Coronavirus (PCR) 08/26/20 08/26/20 08/28/20 18:44 23:31 19:34 WBC RBC 3.09 L Hgb 8.7 L Hct 25.5 L MCV 82 L MCH MCHC RDW 17.1 H Lymph % (Auto) [place] % (Auto) 9.1 H Eos % (Auto) Lymph # (Auto) 0.8 L Seg Neutrophils % 71.7 H Seg Neutrophils # PT INR APTT D-Dimer Heparin Anti-Xa Level ABG pH POC ABG pCO2 POC ABG pO2 ABG pO2 ABG HCO3 ABG O2 Saturation ABG Base Excess ABG Hemoglobin ABG Oxyhemoglobin ABG Sodium ABG Potassium ABG Chloride ABG Glucose Carboxyhemoglobin Sodium Potassium Chloride Carbon Dioxide BUN Creatinine Glucose POC Glucose 125 H 115 H Calcium Magnesium Ferritin AST Alkaline Phosphatase Lactate Dehydrogenase C-Reactive Protein Total Protein Albumin Arterial Blood Glucose Arterial Blood Ionized Calcium Urine WBC (Auto) Coronavirus (PCR) 08/28/20 08/28/20 08/29/20 19:34 22:16 08:06 WBC RBC Hgb Hct MCV MCH MCHC RDW Lymph % (Auto) [place] % (Auto) Eos % (Auto) Lymph # (Auto) Seg Neutrophils % Seg Neutrophils # PT INR APTT D-Dimer Heparin Anti-Xa Level ABG pH POC ABG pCO2 POC ABG pO2 ABG pO2 ABG HCO3 ABG O2 Saturation ABG Base Excess ABG Hemoglobin ABG Oxyhemoglobin ABG Sodium ABG Potassium ABG Chloride ABG Glucose Carboxyhemoglobin Sodium 130 L Potassium 2.6 L* Chloride 96.4 L Carbon Dioxide BUN Creatinine Glucose 119 H POC Glucose 110 H 119 H Calcium 7.8 L Magnesium Ferritin AST Alkaline Phosphatase Lactate Dehydrogenase C-Reactive Protein Total Protein Albumin Arterial Blood Glucose Arterial Blood Ionized Calcium Urine WBC (Auto) Coronavirus (PCR) 08/29/20 08/29/20 08/29/20 12:13 16:37 17:38 WBC RBC Hgb Hct MCV MCH MCHC RDW Lymph % (Auto) [place] % (Auto) Eos % (Auto) Lymph # (Auto) Seg Neutrophils % Seg Neutrophils # PT INR APTT D-Dimer Heparin Anti-Xa Level ABG pH POC ABG pCO2 POC ABG pO2 ABG pO2 ABG HCO3 ABG O2 Saturation ABG Base Excess ABG Hemoglobin ABG Oxyhemoglobin ABG Sodium ABG Potassium ABG Chloride ABG Glucose Carboxyhemoglobin Sodium 133 L Potassium 3.0 L Chloride 97.9 L Carbon Dioxide 21 L BUN Creatinine Glucose 111 H POC Glucose 109 H 106 H Calcium 8.3 L Magnesium 1.30 L Ferritin AST Alkaline Phosphatase Lactate Dehydrogenase C-Reactive Protein Total Protein Albumin Arterial Blood Glucose Arterial Blood Ionized Calcium Urine WBC (Auto) Coronavirus (PCR) 08/29/20 08/29/20 08/29/20 19:21 19:21 19:21 WBC RBC Hgb Hct MCV MCH MCHC RDW Lymph % (Auto) [place] % (Auto) Eos % (Auto) Lymph # (Auto) Seg Neutrophils % Seg Neutrophils # PT INR APTT D-Dimer 688.12 H Heparin Anti-Xa Level ABG pH POC ABG pCO2 POC ABG pO2 ABG pO2 ABG HCO3 ABG O2 Saturation ABG Base Excess ABG Hemoglobin ABG Oxyhemoglobin ABG Sodium ABG Potassium ABG Chloride ABG Glucose Carboxyhemoglobin Sodium Potassium 3.1 L Chloride Carbon Dioxide BUN Creatinine Glucose POC Glucose Calcium Magnesium 1.50 L Ferritin 1476.0 H AST Alkaline Phosphatase Lactate Dehydrogenase C-Reactive Protein Total Protein Albumin Arterial Blood Glucose Arterial Blood Ionized Calcium Urine WBC (Auto) Coronavirus (PCR) 08/29/20 08/29/20 08/31/20 19:21 Unknown 04:30 WBC RBC 3.12 L Hgb 9.1 L Hct 25.7 L MCV 83 L MCH MCHC 35 H RDW 17.4 H Lymph % (Auto) [place] % (Auto) 9.4 H Eos % (Auto) Lymph # (Auto) Seg Neutrophils % Seg Neutrophils # PT INR APTT D-Dimer Heparin Anti-Xa Level ABG pH POC ABG pCO2 POC ABG pO2 ABG pO2 ABG HCO3 ABG O2 Saturation ABG Base Excess ABG Hemoglobin ABG Oxyhemoglobin ABG Sodium ABG Potassium ABG Chloride ABG Glucose Carboxyhemoglobin Sodium Potassium Chloride Carbon Dioxide BUN Creatinine Glucose POC Glucose Calcium Magnesium Ferritin AST Alkaline Phosphatase Lactate Dehydrogenase 373 H C-Reactive Protein 18.30 H Total Protein Albumin Arterial Blood Glucose Arterial Blood Ionized Calcium Urine WBC (Auto) Coronavirus (PCR) Positive A 08/31/20 09/02/20 09/02/20 04:30 06:28 06:49 WBC RBC Hgb Hct MCV MCH MCHC RDW Lymph % (Auto) [place] % (Auto) Eos % (Auto) Lymph # (Auto) Seg Neutrophils % Seg Neutrophils # PT INR APTT D-Dimer Heparin Anti-Xa Level ABG pH POC ABG pCO2 26.2 L POC ABG pO2 82.2 L ABG pO2 ABG HCO3 ABG O2 Saturation ABG Base Excess ABG Hemoglobin 10.1 L ABG Oxyhemoglobin ABG Sodium 134.5 L ABG Potassium 3.2 L ABG Chloride ABG Glucose 127 H Carboxyhemoglobin 0.3 L Sodium 134 L Potassium 3.4 L Chloride Carbon Dioxide BUN Creatinine Glucose 129 H POC Glucose 109 H Calcium 8.0 L Magnesium Ferritin AST Alkaline Phosphatase Lactate Dehydrogenase C-Reactive Protein Total Protein Albumin Arterial Blood Glucose 127 H Arterial Blood Ionized Calcium 4.5 L Urine WBC (Auto) Coronavirus (PCR) 09/02/20 09/02/20 09/02/20 11:32 15:55 15:55 WBC RBC Hgb Hct MCV MCH MCHC RDW Lymph % (Auto) [place] % (Auto) Eos % (Auto) Lymph # (Auto) Seg Neutrophils % Seg Neutrophils # PT 15.5 H INR 1.23 H APTT 50.2 H D-Dimer 2186.40 H Heparin Anti-Xa Level ABG pH POC ABG pCO2 POC ABG pO2 ABG pO2 ABG HCO3 ABG O2 Saturation ABG Base Excess ABG Hemoglobin ABG Oxyhemoglobin ABG Sodium ABG Potassium ABG Chloride ABG Glucose Carboxyhemoglobin Sodium Potassium Chloride Carbon Dioxide 21 L BUN 30 H Creatinine 1.6 H Glucose 125 H POC Glucose 112 H Calcium 7.8 L Magnesium Ferritin AST Alkaline Phosphatase Lactate Dehydrogenase C-Reactive Protein Total Protein Albumin Arterial Blood Glucose Arterial Blood Ionized Calcium Urine WBC (Auto) Coronavirus (PCR) 09/02/20 09/02/20 09/02/20 15:55 15:55 17:34 WBC 11.2 H RBC 2.94 L Hgb 8.1 L Hct 24.3 L MCV 83 L MCH 27 L MCHC RDW 17.7 H Lymph % (Auto) 12.7 L [place] % (Auto) Eos % (Auto) Lymph # (Auto) Seg Neutrophils % 82.5 H Seg Neutrophils # 9.3 H PT INR APTT D-Dimer Heparin Anti-Xa Level ABG pH POC ABG pCO2 POC ABG pO2 ABG pO2 ABG HCO3 ABG O2 Saturation ABG Base Excess ABG Hemoglobin ABG Oxyhemoglobin ABG Sodium ABG Potassium ABG Chloride ABG Glucose Carboxyhemoglobin Sodium Potassium Chloride Carbon Dioxide BUN Creatinine Glucose POC Glucose 127 H Calcium Magnesium Ferritin 1892.0 H AST Alkaline Phosphatase Lactate Dehydrogenase C-Reactive Protein Total Protein Albumin Arterial Blood Glucose Arterial Blood Ionized Calcium Urine WBC (Auto) Coronavirus (PCR) 09/03/20 09/03/20 09/03/20 07:13 16:40 23:40 WBC RBC Hgb Hct MCV MCH MCHC RDW Lymph % (Auto) [place] % (Auto) Eos % (Auto) Lymph # (Auto) Seg Neutrophils % Seg Neutrophils # PT INR APTT D-Dimer Heparin Anti-Xa Level 0.88 H ABG pH POC ABG pCO2 POC ABG pO2 ABG pO2 ABG HCO3 ABG O2 Saturation ABG Base Excess ABG Hemoglobin ABG Oxyhemoglobin ABG Sodium ABG Potassium ABG Chloride ABG Glucose Carboxyhemoglobin Sodium Potassium 3.2 L Chloride 109.7 H Carbon Dioxide BUN 24 H Creatinine Glucose 142 H POC Glucose 220 H Calcium 8.2 L Magnesium Ferritin AST 75 H Alkaline Phosphatase Lactate Dehydrogenase C-Reactive Protein Total Protein 5.8 L Albumin 2.7 L Arterial Blood Glucose Arterial Blood Ionized Calcium Urine WBC (Auto) Coronavirus (PCR) 09/04/20 09/04/20 09/04/20 07:25 07:25 11:57 WBC RBC Hgb 9.0 L Hct 27.9 L MCV MCH MCHC RDW Lymph % (Auto) [place] % (Auto) Eos % (Auto) Lymph # (Auto) Seg Neutrophils % Seg Neutrophils # PT INR APTT D-Dimer Heparin Anti-Xa Level ABG pH POC ABG pCO2 POC ABG pO2 ABG pO2 ABG HCO3 ABG O2 Saturation ABG Base Excess ABG Hemoglobin ABG Oxyhemoglobin ABG Sodium ABG Potassium ABG Chloride ABG Glucose Carboxyhemoglobin Sodium 148 H Potassium Chloride 116.9 H Carbon Dioxide BUN Creatinine Glucose 129 H POC Glucose 113 H Calcium Magnesium Ferritin AST 93 H Alkaline Phosphatase 134 H Lactate Dehydrogenase C-Reactive Protein Total Protein 6.0 L Albumin 2.6 L Arterial Blood Glucose Arterial Blood Ionized Calcium Urine WBC (Auto) Coronavirus (PCR) 09/05/20 09/05/20 09/05/20 06:24 07:17 13:38 WBC RBC Hgb Hct MCV MCH MCHC RDW Lymph % (Auto) [place] % (Auto) Eos % (Auto) Lymph # (Auto) Seg Neutrophils % Seg Neutrophils # PT INR APTT D-Dimer Heparin Anti-Xa Level ABG pH 7.218 L POC ABG pCO2 66.0 H POC ABG pO2 45.8 L 79.1 L ABG pO2 ABG HCO3 ABG O2 Saturation ABG Base Excess ABG Hemoglobin 10.7 L 9.6 L ABG Oxyhemoglobin 74.5 L ABG Sodium 146.5 H 145.4 H ABG Potassium ABG Chloride 115.0 H 117.0 H ABG Glucose 146 H 106 H Carboxyhemoglobin 0.1 L 0 L Sodium 152 H Potassium Chloride 115.9 H Carbon Dioxide BUN Creatinine Glucose 134 H POC Glucose Calcium Magnesium Ferritin AST 69 H Alkaline Phosphatase 168 H Lactate Dehydrogenase C-Reactive Protein Total Protein 5.4 L Albumin 2.7 L Arterial Blood Glucose 146 H 106 H Arterial Blood Ionized Calcium Urine WBC (Auto) Coronavirus (PCR) 09/05/20 09/06/20 09/06/20 17:27 04:15 07:29 WBC RBC Hgb 7.8 L Hct 24.0 L MCV MCH MCHC RDW Lymph % (Auto) [place] % (Auto) Eos % (Auto) Lymph # (Auto) Seg Neutrophils % Seg Neutrophils # PT INR APTT D-Dimer Heparin Anti-Xa Level ABG pH POC ABG pCO2 POC ABG pO2 ABG pO2 184.9 H ABG HCO3 19.9 L ABG O2 Saturation 99.2 H ABG Base Excess -3.5 L ABG Hemoglobin 8.9 L ABG Oxyhemoglobin ABG Sodium ABG Potassium ABG Chloride ABG Glucose Carboxyhemoglobin Sodium Potassium Chloride Carbon Dioxide BUN Creatinine Glucose POC Glucose 124 H Calcium Magnesium Ferritin AST Alkaline Phosphatase Lactate Dehydrogenase C-Reactive Protein Total Protein Albumin Arterial Blood Glucose Arterial Blood Ionized Calcium Urine WBC (Auto) Coronavirus (PCR) 09/06/20 09/06/20 09/06/20 07:29 07:29 12:02 WBC 11.3 H RBC 2.83 L Hgb 7.8 L Hct 24.3 L MCV MCH MCHC RDW 17.7 H Lymph % (Auto) [place] % (Auto) Eos % (Auto) Lymph # (Auto) Seg Neutrophils % Seg Neutrophils # PT INR APTT D-Dimer Heparin Anti-Xa Level ABG pH POC ABG pCO2 POC ABG pO2 ABG pO2 ABG HCO3 ABG O2 Saturation ABG Base Excess ABG Hemoglobin ABG Oxyhemoglobin ABG Sodium ABG Potassium ABG Chloride ABG Glucose Carboxyhemoglobin Sodium 151 H Potassium Chloride 117.6 H Carbon Dioxide BUN 24 H Creatinine Glucose 159 H POC Glucose 158 H Calcium 7.7 L Magnesium Ferritin AST Alkaline Phosphatase Lactate Dehydrogenase C-Reactive Protein Total Protein Albumin Arterial Blood Glucose Arterial Blood Ionized Calcium Urine WBC (Auto) Coronavirus (PCR) 09/07/20 09/08/20 09/08/20 05:21 04:31 04:35 WBC RBC Hgb 7.4 L Hct 22.7 L MCV MCH MCHC RDW Lymph % (Auto) [place] % (Auto) Eos % (Auto) Lymph # (Auto) Seg Neutrophils % Seg Neutrophils # PT INR APTT D-Dimer Heparin Anti-Xa Level ABG pH POC ABG pCO2 49.1 H POC ABG pO2 46.0 L 58.6 L ABG pO2 ABG HCO3 ABG O2 Saturation ABG Base Excess ABG Hemoglobin 8.6 L 7.8 L ABG Oxyhemoglobin 87.7 L ABG Sodium 145.1 H ABG Potassium ABG Chloride 116.0 H 116.0 H ABG Glucose 238 H 255 H Carboxyhemoglobin Sodium Potassium Chloride Carbon Dioxide BUN Creatinine Glucose POC Glucose Calcium Magnesium Ferritin AST Alkaline Phosphatase Lactate Dehydrogenase C-Reactive Protein Total Protein Albumin Arterial Blood Glucose 238 H 255 H Arterial Blood Ionized Calcium Urine WBC (Auto) Coronavirus (PCR) 09/08/20 09/08/20 09/08/20 12:45 17:26 19:15 WBC RBC Hgb Hct MCV MCH MCHC RDW Lymph % (Auto) [place] % (Auto) Eos % (Auto) Lymph # (Auto) Seg Neutrophils % Seg Neutrophils # PT INR APTT D-Dimer Heparin Anti-Xa Level ABG pH POC ABG pCO2 POC ABG pO2 ABG pO2 ABG HCO3 ABG O2 Saturation ABG Base Excess ABG Hemoglobin ABG Oxyhemoglobin ABG Sodium ABG Potassium ABG Chloride ABG Glucose Carboxyhemoglobin Sodium Potassium Chloride Carbon Dioxide BUN Creatinine Glucose POC Glucose 270 H 294 H Calcium Magnesium Ferritin AST Alkaline Phosphatase Lactate Dehydrogenase C-Reactive Protein 4.90 H Total Protein Albumin Arterial Blood Glucose Arterial Blood Ionized Calcium Urine WBC (Auto) Coronavirus (PCR) 09/08/20 09/08/20 09/08/20 19:15 19:15 19:15 WBC RBC Hgb Hct MCV MCH MCHC RDW Lymph % (Auto) [place] % (Auto) Eos % (Auto) Lymph # (Auto) Seg Neutrophils % Seg Neutrophils # PT INR APTT D-Dimer 1449.12 H Heparin Anti-Xa Level ABG pH POC ABG pCO2 POC ABG pO2 ABG pO2 ABG HCO3 ABG O2 Saturation ABG Base Excess ABG Hemoglobin ABG Oxyhemoglobin ABG Sodium ABG Potassium ABG Chloride ABG Glucose Carboxyhemoglobin Sodium Potassium Chloride Carbon Dioxide BUN Creatinine Glucose POC Glucose Calcium Magnesium Ferritin 1485.0 H AST Alkaline Phosphatase Lactate Dehydrogenase 541 H C-Reactive Protein Total Protein Albumin Arterial Blood Glucose Arterial Blood Ionized Calcium Urine WBC (Auto) Coronavirus (PCR) 09/09/20 09/09/20 04:40 12:15 WBC RBC Hgb Hct MCV MCH MCHC RDW Lymph % (Auto) [place] % (Auto) Eos % (Auto) Lymph # (Auto) Seg Neutrophils % Seg Neutrophils # PT INR APTT D-Dimer Heparin Anti-Xa Level ABG pH POC ABG pCO2 POC ABG pO2 75.1 L ABG pO2 ABG HCO3 ABG O2 Saturation ABG Base Excess ABG Hemoglobin 10.7 L ABG Oxyhemoglobin 93.9 L ABG Sodium 146.7 H ABG Potassium ABG Chloride 113.0 H ABG Glucose 420 H Carboxyhemoglobin 0.2 L Sodium Potassium Chloride Carbon Dioxide BUN Creatinine Glucose POC Glucose 281 H Calcium Magnesium Ferritin AST Alkaline Phosphatase Lactate Dehydrogenase C-Reactive Protein Total Protein Albumin Arterial Blood Glucose 420 H Arterial Blood Ionized Calcium Urine WBC (Auto) Coronavirus (PCR) Chest x-ray: image reviewed (persistent bilateral infiltrates) Allied health notes reviewed: nursing
[2020-09-10] MEDS: fentaNYL DRIP Premix 2,000 MCG/100 ML BAG IV SCH ×2 (01:00→19:38)
--- NOTE | 2020-09-10 03:21 | XRay Report ---
CHEST 1 VIEW 0230 INDICATION / CLINICAL INFORMATION: follow up respiratory failure COMPARISON: 09/09/2020 FINDINGS: SUPPORT DEVICES: Stable HEART / MEDIASTINUM: Stable LUNGS / PLEURA: Bilateral infiltrates continue with mild improvement in the left base. No pneumothora x. ADDITIONAL FINDINGS: No significant additional findings. Signer Name: Edy Roberts MD Signed: 09/10/2020 3:17 AM Workstation Name: [email or web address]
[2020-09-10] MEDS: AZTREONAM/NS 1 GM/50 ML 1 GM/50 ML VIAL IV SCH (05:29)
[2020-09-10] MEDS: METOPROLOL TARTRATE 50 MG TAB PO SCH ×3 (06:53→21:53)
[2020-09-10 08:42] LABS: Hematocrit 24.8 % (35.5-45.6); Hemoglobin 7.7 gm/dl (11.8-15.2)
[2020-09-10] MEDS: dexAMETHasone 4 MG/ML VIAL IV SCH (10:47)
[2020-09-10] MEDS: LANSOPRAZOLE 30 MG SOLUTAB FEEDTUBE SCH (10:48)
[2020-09-10] MEDS: CLOPIDOGREL 75 MG TAB PO SCH (10:48)
[2020-09-10] MEDS: THIAMINE 100 MG TAB PO SCH (10:48)
[2020-09-10] MEDS: amLODIPine 10 MG TAB PO SCH (10:48)
[2020-09-10] MEDS: ENOXAPARIN 100 MG/1 ML INJ SUB-Q SCH ×2 (10:48→22:00)
[2020-09-10] MEDS: ZINC SULFATE 220 MG CAP PO SCH ×2 (10:49→22:00)
[2020-09-10] MEDS: FOLIC ACID 1 MG TAB PO SCH (10:49)
[2020-09-10] MEDS: ASCORBIC ACID 500 MG TAB PO SCH ×2 (10:49→22:00)
--- NOTE | 2020-09-10 11:01 | Progress Note ---
Assessment and Plan Cultures: 08/16/2020 SARS CoV2 PCR: Negative 08/29/2020 SARS CoV2 PCR: Positive 08/15/2020 urine culture: No growth 08/24/2020 blood culture: No growth 08/28/2020 blood culture: No growth 08/28/2020 urine culture: No growth MRSA PCR negative 09/05/2020 Sputum +Barby A/P: 64-year-old male with hypertension, coronary artery disease, peripheral vascular disease, gout, alcohol dependence was admitted to the hospital on 08/15/2020 due to bleeding from his left foot which is a site of a previous surgery. Patient was noted to have wound dehiscence complicated by wound necrosis. Was seen by vascular surgery. He underwent a TMA. Due to fever, patient was receiving IV levofloxacin for UTI. COVID-19 test done on 08/29/2020 for placement reasons came back positive. Patient has been having intermittent fevers since 08/28/2020. 09/02/2020, a code MET was called due to tachypnea and labored respirations: #Shock: Probably from severe COVID-19. #Bilateral pneumonia: Secondary to COVID-19. Patient with severe hypoxia, elevated inflammatory markers, i,proving. Recently had completed levofloxacin. Sputum with barby, likely a colonizer. #Acute hypoxic respiratory failure: remains intubated improving FIO2=45 #Peripheral vascular disease, wound dehiscence and necrosis: underwent TMA by vascular surgery now with wound VAC #Coronary artery disease, CHF Recs: -Continue IV/PO Dexamethasone 6 mg daily x 10 days D9 -Completed remdesivir -Stop empiric antibiotics (Aztreonam D8) Procal improving -Stop vancomycin, MRSA PCR negative -prophylactic anticoagulation based on d-dimer per hospital protocol -trend ferritin, LDH, d-dimer, CRP ordered today -monitor off abx Corry Prerin MD [facility] ([facility]) Office [phone] Subjective Date of service: 09/10/20 Principal diagnosis: Ac hypoxemic resp failure; COVID-19; Pneumonia; Sepsis; PVD; L. foot ulcer Interval history: Remains intubated, FiO2 45, no fever Objective - Exam Narrative Exam: Physical Exam: reviewed ED and hospitalist notes. Deferred to prevent COVID-19 transmission. - Constitutional Vitals: Vital Signs Temp Pulse Resp BP Pulse Ox 99.1 F 88 22 153/64 95 09/10/20 03:33 09/10/20 10:48 09/10/20 10:45 09/10/20 10:48 09/10/20 10:45 Temperature -Last 24 Hours Temperature 99.1 F Temperature 98.4 F Temperature 98.8 F Temperature 99.4 F Temperature 99.2 F - Labs CBC & Chem 7: 09/10/20 07:15 09/06/20 07:29 Labs: Abnormal lab results 09/09/20 09/09/20 09/10/20 Range/Units 12:15 17:36 04:45 Hgb (11.8-15.2) gm/dl Hct (35.5-45.6) % ABG Hemoglobin 8.0 L (12.0-17.5) ABG Sodium 150.8 H (136.0-145.0) mmol/L ABG Chloride 117.0 H (98-107) mmol/L ABG Glucose 461 H (65-95) mg/dL POC Glucose 281 H 368 H (70-105) mg/dL Arterial Blood Glucose 461 H (65-95) mg/dL 09/10/20 Range/Units 07:15 Hgb 7.7 L (11.8-15.2) gm/dl Hct 24.8 L (35.5-45.6) % ABG Hemoglobin (12.0-17.5) ABG Sodium (136.0-145.0) mmol/L ABG Chloride (98-107) mmol/L ABG Glucose (65-95) mg/dL POC Glucose (70-105) mg/dL Arterial Blood Glucose (65-95) mg/dL
[2020-09-10] MEDS: CILOSTAZOL 100 MG TAB PO SCH ×2 (12:00→22:00)
--- NOTE | 2020-09-10 13:47 | Progress Note ---
Assessment and Plan Acute hypoxemic respiratory failure, on mechanical ventilatory support. COVID-19 infection. Bilateral pneumonia versus pulmonary edema. Severe sepsis with shock. Peripheral vascular disease. Anemia that is microcytic. History of alcohol abuse. Acute encephalopathy. History of obesity. History of coronary artery disease. History of gout. Hyperlipidemia. Hypertension, now hypotensive. Left lower extremity / left foot ulcer. - follow repeat BMP - continue Lantus 5 units sq daily and SSI - continue current vent settings - continue daily SAT and SBT assessment as tolerated - continue to wean supplemental oxygen for target O2 sat's > 92% acutely - continue care as below otherwise; - VAP bundle addressed - continue lung protective strategies - continue bronchodilators with pulmonary hygiene per RT - wean per pulmonary driven protocols otherwise - continue accuchecks with glycemic control per SSI (While critically ill target blood glucose of 140-180 mg/dL; avoid hypoglycemia) - sedation prn for target RASS 0 to -1 - avoid nephrotoxins, renally dose all medications - accuchecks with glycemic control per SSI (While critically ill target blood glucose of 140-180 mg/dL; avoid hypoglycemia) - avoid benzodiazepine's, reduce the possibility of delirium - complete AB's per ID rec's - prn analgesia per CPOT score - Maintenance of sleep-wake cycle, avoid delirium - enteral nutritional support at goal rate as tolerated - G.I. & VTE prophylaxis - PT/OT/ROM exercises - continue mobility protocols for pressure ulcer prophylaxis - Monitor hemodynamics closely - continue other care per attending / other consultants - discharge planning ongoing concurrently COVID SPECIFIC INTERVENTIONS - completed Remdesivir as per ID/Pulmonary developed protocols - continue systemic steroids for severe COVID-19 infection empirically - follow repeat COVID tests results - zinc and vitamin C supplementation - Monitor inflammatory markers per facility protocol - ferritin, Ddimer, CRP - therapeutic anticoagulation per system Protocol based on d-dimer and clinical considerations - Continue contact and airborne isolation .... Re-evaluate in am & prn CONDITION: CRITICAL PROGNOSIS: GUARDED CODE STATUS: FULL CODE The high probability of a clinically significant, sudden or life-threatening deterioration of the [respiratory, cardiovascular, renal & neurologic] system(s) required my full and direct attention, intervention and personal management. The aggregate critical care time was [33] minutes without overlap. Time includes spent on; [x] Data Review and interpretation [x] Patient assessment and monitoring of vital signs [x] Documentation [x] Medication orders and management Subjective Date of service: 09/10/20 Principal diagnosis: Ac hypoxemic resp failure; COVID-19; Pneumonia; Sepsis; PVD; L. foot ulcer Interval history: Patient is seen today for: Acute hypoxemic respiratory failure; COVID-19 infection; Bilateral pneumonia versus pulmonary edema; Severe sepsis with shock; Peripheral vascular disease; Acute encephalopathy; Left lower extremity / left foot ulcer. Seen and examined at bedside; 24hour events reviewed; nursing and respiratory care staff consulted; no adverse overnight events reported to me; resting peacefully in bed; remains on MVS; Oxygenation remains labile without significant room to wean; no emesis or overt aspiration; no high grade fevers Objective Vital Signs - 12hr 09/10/20 09/10/20 09/10/20 02:00 02:15 02:30 Temperature Pulse Rate 88 81 85 Pulse Rate [ From Monitor] Respiratory 12 17 Rate Blood Pressure 113/53 114/50 123/60 O2 Sat by Pulse 98 97 99 Oximetry 09/10/20 09/10/20 09/10/20 02:45 03:00 03:15 Temperature Pulse Rate 79 85 78 Pulse Rate [ From Monitor] Respiratory 23 Rate Blood Pressure 121/54 128/66 113/54 O2 Sat by Pulse 97 98 97 Oximetry 09/10/20 09/10/20 09/10/20 03:30 03:33 03:45 Temperature 99.1 F Pulse Rate 91 H 83 Pulse Rate [ From Monitor] Respiratory 22 Rate Blood Pressure 128/53 122/53 O2 Sat by Pulse 98 98 Oximetry 09/10/20 09/10/20 09/10/20 04:00 04:15 04:30 Temperature Pulse Rate 81 89 81 Pulse Rate [ 78 From Monitor] Respiratory 22 Rate Blood Pressure 131/53 142/60 131/53 O2 Sat by Pulse 99 99 99 Oximetry 09/10/20 09/10/20 09/10/20 04:45 05:00 05:15 Temperature Pulse Rate 91 H 83 78 Pulse Rate [ From Monitor] Respiratory 22 Rate Blood Pressure 128/58 124/55 129/52 O2 Sat by Pulse 99 98 98 Oximetry 09/10/20 09/10/20 09/10/20 05:30 05:46 06:00 Temperature Pulse Rate 80 82 81 Pulse Rate [ From Monitor] Respiratory 22 22 22 Rate Blood Pressure 131/53 124/53 125/51 O2 Sat by Pulse 98 96 96 Oximetry 09/10/20 09/10/20 09/10/20 06:15 06:30 06:45 Temperature Pulse Rate 83 81 82 Pulse Rate [ From Monitor] Respiratory 22 22 22 Rate Blood Pressure 127/53 126/55 131/54 O2 Sat by Pulse 96 96 95 Oximetry 09/10/20 09/10/20 09/10/20 07:00 07:15 07:30 Temperature Pulse Rate 78 83 84 Pulse Rate [ From Monitor] Respiratory 22 22 21 Rate Blood Pressure 125/54 137/56 138/54 O2 Sat by Pulse 96 94 94 Oximetry 09/10/20 09/10/20 09/10/20 07:46 08:00 08:15 Temperature Pulse Rate 80 79 76 Pulse Rate [ From Monitor] Respiratory 20 Rate Blood Pressure 129/55 137/54 132/53 O2 Sat by Pulse 95 95 95 Oximetry 09/10/20 09/10/20 09/10/20 08:30 08:46 08:49 Temperature Pulse Rate 79 80 78 Pulse Rate [ From Monitor] Respiratory 22 Rate Blood Pressure 138/68 138/60 138/60 O2 Sat by Pulse 95 95 99 Oximetry 09/10/20 09/10/20 09/10/20 09:00 09:15 09:30 Temperature Pulse Rate 86 81 83 Pulse Rate [ From Monitor] Respiratory 22 Rate Blood Pressure 134/53 130/53 136/54 O2 Sat by Pulse 95 95 95 Oximetry 09/10/20 09/10/20 09/10/20 09:45 10:00 10:15 Temperature Pulse Rate 85 85 80 Pulse Rate [ From Monitor] Respiratory 22 Rate Blood Pressure 140/60 142/54 130/57 O2 Sat by Pulse 93 95 95 Oximetry 09/10/20 09/10/20 09/10/20 10:30 10:43 10:45 Temperature Pulse Rate 83 97 H 88 Pulse Rate [ From Monitor] Respiratory 22 Rate Blood Pressure 140/58 140/58 153/64 O2 Sat by Pulse 95 100 95 Oximetry 09/10/20 10:48 Temperature Pulse Rate 88 Pulse Rate [ From Monitor] Respiratory Rate Blood Pressure 153/64 O2 Sat by Pulse Oximetry Constitutional: no acute distress, other (elderly obese male with mildly increased respiratory effort at rest on MVS) Eyes: non-icteric ENT: oropharynx moist, other (ETT 24 cm MONICA) Neck: supple, no lymphadenopathy, no JVD Effort: mildly labored Ascultation: Bilateral: diminished breath sounds, rhonchi Percussion: Bilateral: not dull Cardiovascular: regular rate and rhythm Gastrointestinal: normoactive bowel sounds, soft, non-tender, non-distended (protuberant) Integumentary: normal (in areas i examined; please see [facility] notes for full description) Extremities: no cyanosis, pink and warm, pulses normal, no ischemia or petechiae Neurologic: non-focal exam (grossly), pupils equal and round, other (lethargic) Psychiatric: other (unable to assess) CBC and BMP: 09/11/20 06:10 09/11/20 08:12 ABG, PT/INR, D-dimer: ABG ABG pH 7.406 (7.320-7.450) 09/10/20 04:45 POC ABG pCO2 46.2 mmHg (32.0-48.0) 09/10/20 04:45 ABG pCO2 29.5 mm Hg 09/06/20 04:15 POC ABG pO2 100.5 mmHg (83-108) 09/10/20 04:45 ABG pO2 184.9 mm Hg (80.0-90.0) H 09/06/20 04:15 POC ABG HCO3 28.4 09/10/20 04:45 ABG O2 Saturation 99.2 % (95.0-99.0) H 09/06/20 04:15 PT/INR, D-dimer PT 15.5 Sec. (12.2-14.9) H 09/02/20 15:55 INR 1.23 (0.87-1.13) H 09/02/20 15:55 D-Dimer 1449.12 ng/mlDDU (0-234) H 09/08/20 19:15 Abnormal lab findings: Abnormal Labs 08/15/20 08/15/20 08/15/20 08:49 10:40 10:40 WBC RBC 2.96 L Hgb 9.0 L Hct 25.8 L MCV MCH MCHC 35 H RDW 16.2 H Lymph % (Auto) [place] % (Auto) Eos % (Auto) Lymph # (Auto) Seg Neutrophils % Seg Neutrophils # PT INR APTT D-Dimer Heparin Anti-Xa Level ABG pH POC ABG pCO2 POC ABG pO2 ABG pO2 ABG HCO3 ABG O2 Saturation ABG Base Excess ABG Hemoglobin ABG Oxyhemoglobin ABG Sodium ABG Potassium ABG Chloride ABG Glucose Carboxyhemoglobin Sodium Potassium Chloride Carbon Dioxide BUN Creatinine 0.7 L Glucose 188 H POC Glucose 212 H Calcium 8.3 L Magnesium Ferritin AST Alkaline Phosphatase Lactate Dehydrogenase C-Reactive Protein Total Protein Albumin Arterial Blood Glucose Arterial Blood Ionized Calcium Urine WBC (Auto) Coronavirus (PCR) 08/15/20 08/15/20 08/16/20 14:00 Unknown 04:43 WBC RBC 3.28 L Hgb 9.6 L Hct 29.3 L MCV MCH MCHC RDW 16.6 H Lymph % (Auto) [place] % (Auto) Eos % (Auto) 4.9 H Lymph # (Auto) Seg Neutrophils % Seg Neutrophils # PT INR APTT D-Dimer Heparin Anti-Xa Level ABG pH POC ABG pCO2 POC ABG pO2 ABG pO2 ABG HCO3 ABG O2 Saturation ABG Base Excess ABG Hemoglobin ABG Oxyhemoglobin ABG Sodium ABG Potassium ABG Chloride ABG Glucose Carboxyhemoglobin Sodium Potassium Chloride Carbon Dioxide BUN 8 L Creatinine 0.6 L Glucose 115 H POC Glucose Calcium Magnesium Ferritin AST Alkaline Phosphatase Lactate Dehydrogenase C-Reactive Protein Total Protein Albumin Arterial Blood Glucose Arterial Blood Ionized Calcium Urine WBC (Auto) 31.0 H Coronavirus (PCR) 08/16/20 08/18/20 08/20/20 04:43 15:17 07:12 WBC RBC Hgb 9.1 L Hct 27.2 L MCV MCH MCHC RDW Lymph % (Auto) [place] % (Auto) Eos % (Auto) Lymph # (Auto) Seg Neutrophils % Seg Neutrophils # PT INR APTT D-Dimer Heparin Anti-Xa Level ABG pH POC ABG pCO2 POC ABG pO2 ABG pO2 ABG HCO3 ABG O2 Saturation ABG Base Excess ABG Hemoglobin ABG Oxyhemoglobin ABG Sodium ABG Potassium ABG Chloride ABG Glucose Carboxyhemoglobin Sodium 135 L Potassium Chloride 97.5 L Carbon Dioxide BUN Creatinine 0.5 L Glucose 153 H 135 H POC Glucose Calcium Magnesium Ferritin AST Alkaline Phosphatase Lactate Dehydrogenase C-Reactive Protein Total Protein Albumin Arterial Blood Glucose Arterial Blood Ionized Calcium Urine WBC (Auto) Coronavirus (PCR) 1208/20/20 08/20/20 07:12 07:12 08:07 WBC RBC Hgb Hct MCV MCH MCHC RDW Lymph % (Auto) [place] % (Auto) Eos % (Auto) Lymph # (Auto) Seg Neutrophils % Seg Neutrophils # PT INR 1.15 H APTT D-Dimer Heparin Anti-Xa Level ABG pH POC ABG pCO2 POC ABG pO2 ABG pO2 ABG HCO3 ABG O2 Saturation ABG Base Excess ABG Hemoglobin ABG Oxyhemoglobin ABG Sodium ABG Potassium ABG Chloride ABG Glucose Carboxyhemoglobin Sodium Potassium Chloride Carbon Dioxide BUN Creatinine Glucose 113 H POC Glucose 108 H Calcium Magnesium Ferritin AST Alkaline Phosphatase Lactate Dehydrogenase C-Reactive Protein Total Protein Albumin Arterial Blood Glucose Arterial Blood Ionized Calcium Urine WBC (Auto) Coronavirus (PCR) 08/20/20 08/20/20 08/21/20 16:32 22:34 07:42 WBC RBC Hgb Hct MCV MCH MCHC RDW Lymph % (Auto) [place] % (Auto) Eos % (Auto) Lymph # (Auto) Seg Neutrophils % Seg Neutrophils # PT INR APTT D-Dimer Heparin Anti-Xa Level ABG pH POC ABG pCO2 POC ABG pO2 ABG pO2 ABG HCO3 ABG O2 Saturation ABG Base Excess ABG Hemoglobin ABG Oxyhemoglobin ABG Sodium ABG Potassium ABG Chloride ABG Glucose Carboxyhemoglobin Sodium Potassium Chloride Carbon Dioxide BUN Creatinine Glucose POC Glucose 107 H 139 H 115 H Calcium Magnesium Ferritin AST Alkaline Phosphatase Lactate Dehydrogenase C-Reactive Protein Total Protein Albumin Arterial Blood Glucose Arterial Blood Ionized Calcium Urine WBC (Auto) Coronavirus (PCR) 08/21/20 08/21/20 08/21/20 08:14 08:14 11:31 WBC RBC 3.08 L Hgb 8.9 L Hct 27.0 L MCV MCH MCHC RDW 16.7 H Lymph % (Auto) [place] % (Auto) Eos % (Auto) Lymph # (Auto) Seg Neutrophils % Seg Neutrophils # PT INR APTT D-Dimer Heparin Anti-Xa Level ABG pH POC ABG pCO2 POC ABG pO2 ABG pO2 ABG HCO3 ABG O2 Saturation ABG Base Excess ABG Hemoglobin ABG Oxyhemoglobin ABG Sodium ABG Potassium ABG Chloride ABG Glucose Carboxyhemoglobin Sodium 136 L Potassium Chloride Carbon Dioxide BUN Creatinine Glucose 129 H POC Glucose 132 H Calcium Magnesium Ferritin AST Alkaline Phosphatase Lactate Dehydrogenase C-Reactive Protein Total Protein Albumin Arterial Blood Glucose Arterial Blood Ionized Calcium Urine WBC (Auto) Coronavirus (PCR) 08/24/20 08/25/20 08/26/20 10:57 18:39 11:57 WBC RBC Hgb Hct MCV MCH MCHC RDW Lymph % (Auto) [place] % (Auto) Eos % (Auto) Lymph # (Auto) Seg Neutrophils % Seg Neutrophils # PT INR APTT D-Dimer Heparin Anti-Xa Level ABG pH POC ABG pCO2 POC ABG pO2 ABG pO2 ABG HCO3 ABG O2 Saturation ABG Base Excess ABG Hemoglobin ABG Oxyhemoglobin ABG Sodium ABG Potassium ABG Chloride ABG Glucose Carboxyhemoglobin Sodium Potassium Chloride Carbon Dioxide BUN Creatinine Glucose POC Glucose 126 H 120 H 127 H Calcium Magnesium Ferritin AST Alkaline Phosphatase Lactate Dehydrogenase C-Reactive Protein Total Protein Albumin Arterial Blood Glucose Arterial Blood Ionized Calcium Urine WBC (Auto) Coronavirus (PCR) 08/26/20 08/26/20 08/28/20 18:44 23:31 19:34 WBC RBC 3.09 L Hgb 8.7 L Hct 25.5 L MCV 82 L MCH MCHC RDW 17.1 H Lymph % (Auto) [place] % (Auto) 9.1 H Eos % (Auto) Lymph # (Auto) 0.8 L Seg Neutrophils % 71.7 H Seg Neutrophils # PT INR APTT D-Dimer Heparin Anti-Xa Level ABG pH POC ABG pCO2 POC ABG pO2 ABG pO2 ABG HCO3 ABG O2 Saturation ABG Base Excess ABG Hemoglobin ABG Oxyhemoglobin ABG Sodium ABG Potassium ABG Chloride ABG Glucose Carboxyhemoglobin Sodium Potassium Chloride Carbon Dioxide BUN Creatinine Glucose POC Glucose 125 H 115 H Calcium Magnesium Ferritin AST Alkaline Phosphatase Lactate Dehydrogenase C-Reactive Protein Total Protein Albumin Arterial Blood Glucose Arterial Blood Ionized Calcium Urine WBC (Auto) Coronavirus (PCR) 08/28/20 08/28/20 08/29/20 19:34 22:16 08:06 WBC RBC Hgb Hct MCV MCH MCHC RDW Lymph % (Auto) [place] % (Auto) Eos % (Auto) Lymph # (Auto) Seg Neutrophils % Seg Neutrophils # PT INR APTT D-Dimer Heparin Anti-Xa Level ABG pH POC ABG pCO2 POC ABG pO2 ABG pO2 ABG HCO3 ABG O2 Saturation ABG Base Excess ABG Hemoglobin ABG Oxyhemoglobin ABG Sodium ABG Potassium ABG Chloride ABG Glucose Carboxyhemoglobin Sodium 130 L Potassium 2.6 L* Chloride 96.4 L Carbon Dioxide BUN Creatinine Glucose 119 H POC Glucose 110 H 119 H Calcium 7.8 L Magnesium Ferritin AST Alkaline Phosphatase Lactate Dehydrogenase C-Reactive Protein Total Protein Albumin Arterial Blood Glucose Arterial Blood Ionized Calcium Urine WBC (Auto) Coronavirus (PCR) 08/29/20 08/29/20 08/29/20 12:13 16:37 17:38 WBC RBC Hgb Hct MCV MCH MCHC RDW Lymph % (Auto) [place] % (Auto) Eos % (Auto) Lymph # (Auto) Seg Neutrophils % Seg Neutrophils # PT INR APTT D-Dimer Heparin Anti-Xa Level ABG pH POC ABG pCO2 POC ABG pO2 ABG pO2 ABG HCO3 ABG O2 Saturation ABG Base Excess ABG Hemoglobin ABG Oxyhemoglobin ABG Sodium ABG Potassium ABG Chloride ABG Glucose Carboxyhemoglobin Sodium 133 L Potassium 3.0 L Chloride 97.9 L Carbon Dioxide 21 L BUN Creatinine Glucose 111 H POC Glucose 109 H 106 H Calcium 8.3 L Magnesium 1.30 L Ferritin AST Alkaline Phosphatase Lactate Dehydrogenase C-Reactive Protein Total Protein Albumin Arterial Blood Glucose Arterial Blood Ionized Calcium Urine WBC (Auto) Coronavirus (PCR) 08/29/20 08/29/20 08/29/20 19:21 19:21 19:21 WBC RBC Hgb Hct MCV MCH MCHC RDW Lymph % (Auto) [place] % (Auto) Eos % (Auto) Lymph # (Auto) Seg Neutrophils % Seg Neutrophils # PT INR APTT D-Dimer 688.12 H Heparin Anti-Xa Level ABG pH POC ABG pCO2 POC ABG pO2 ABG pO2 ABG HCO3 ABG O2 Saturation ABG Base Excess ABG Hemoglobin ABG Oxyhemoglobin ABG Sodium ABG Potassium ABG Chloride ABG Glucose Carboxyhemoglobin Sodium Potassium 3.1 L Chloride Carbon Dioxide BUN Creatinine Glucose POC Glucose Calcium Magnesium 1.50 L Ferritin 1476.0 H AST Alkaline Phosphatase Lactate Dehydrogenase C-Reactive Protein Total Protein Albumin Arterial Blood Glucose Arterial Blood Ionized Calcium Urine WBC (Auto) Coronavirus (PCR) 08/29/20 08/29/20 08/31/20 19:21 Unknown 04:30 WBC RBC 3.12 L Hgb 9.1 L Hct 25.7 L MCV 83 L MCH MCHC 35 H RDW 17.4 H Lymph % (Auto) [place] % (Auto) 9.4 H Eos % (Auto) Lymph # (Auto) Seg Neutrophils % Seg Neutrophils # PT INR APTT D-Dimer Heparin Anti-Xa Level ABG pH POC ABG pCO2 POC ABG pO2 ABG pO2 ABG HCO3 ABG O2 Saturation ABG Base Excess ABG Hemoglobin ABG Oxyhemoglobin ABG Sodium ABG Potassium ABG Chloride ABG Glucose Carboxyhemoglobin Sodium Potassium Chloride Carbon Dioxide BUN Creatinine Glucose POC Glucose Calcium Magnesium Ferritin AST Alkaline Phosphatase Lactate Dehydrogenase 373 H C-Reactive Protein 18.30 H Total Protein Albumin Arterial Blood Glucose Arterial Blood Ionized Calcium Urine WBC (Auto) Coronavirus (PCR) Positive A 08/31/20 09/02/20 09/02/20 04:30 06:28 06:49 WBC RBC Hgb Hct MCV MCH MCHC RDW Lymph % (Auto) [place] % (Auto) Eos % (Auto) Lymph # (Auto) Seg Neutrophils % Seg Neutrophils # PT INR APTT D-Dimer Heparin Anti-Xa Level ABG pH POC ABG pCO2 26.2 L POC ABG pO2 82.2 L ABG pO2 ABG HCO3 ABG O2 Saturation ABG Base Excess ABG Hemoglobin 10.1 L ABG Oxyhemoglobin ABG Sodium 134.5 L ABG Potassium 3.2 L ABG Chloride ABG Glucose 127 H Carboxyhemoglobin 0.3 L Sodium 134 L Potassium 3.4 L Chloride Carbon Dioxide BUN Creatinine Glucose 129 H POC Glucose 109 H Calcium 8.0 L Magnesium Ferritin AST Alkaline Phosphatase Lactate Dehydrogenase C-Reactive Protein Total Protein Albumin Arterial Blood Glucose 127 H Arterial Blood Ionized Calcium 4.5 L Urine WBC (Auto) Coronavirus (PCR) 09/02/20 09/02/20 09/02/20 11:32 15:55 15:55 WBC RBC Hgb Hct MCV MCH MCHC RDW Lymph % (Auto) [place] % (Auto) Eos % (Auto) Lymph # (Auto) Seg Neutrophils % Seg Neutrophils # PT 15.5 H INR 1.23 H APTT 50.2 H D-Dimer 2186.40 H Heparin Anti-Xa Level ABG pH POC ABG pCO2 POC ABG pO2 ABG pO2 ABG HCO3 ABG O2 Saturation ABG Base Excess ABG Hemoglobin ABG Oxyhemoglobin ABG Sodium ABG Potassium ABG Chloride ABG Glucose Carboxyhemoglobin Sodium Potassium Chloride Carbon Dioxide 21 L BUN 30 H Creatinine 1.6 H Glucose 125 H POC Glucose 112 H Calcium 7.8 L Magnesium Ferritin AST Alkaline Phosphatase Lactate Dehydrogenase C-Reactive Protein Total Protein Albumin Arterial Blood Glucose Arterial Blood Ionized Calcium Urine WBC (Auto) Coronavirus (PCR) 09/02/20 09/02/20 09/02/20 15:55 15:55 17:34 WBC 11.2 H RBC 2.94 L Hgb 8.1 L Hct 24.3 L MCV 83 L MCH 27 L MCHC RDW 17.7 H Lymph % (Auto) 12.7 L [place] % (Auto) Eos % (Auto) Lymph # (Auto) Seg Neutrophils % 82.5 H Seg Neutrophils # 9.3 H PT INR APTT D-Dimer Heparin Anti-Xa Level ABG pH POC ABG pCO2 POC ABG pO2 ABG pO2 ABG HCO3 ABG O2 Saturation ABG Base Excess ABG Hemoglobin ABG Oxyhemoglobin ABG Sodium ABG Potassium ABG Chloride ABG Glucose Carboxyhemoglobin Sodium Potassium Chloride Carbon Dioxide BUN Creatinine Glucose POC Glucose 127 H Calcium Magnesium Ferritin 1892.0 H AST Alkaline Phosphatase Lactate Dehydrogenase C-Reactive Protein Total Protein Albumin Arterial Blood Glucose Arterial Blood Ionized Calcium Urine WBC (Auto) Coronavirus (PCR) 09/03/20 09/03/20 09/03/20 07:13 16:40 23:40 WBC RBC Hgb Hct MCV MCH MCHC RDW Lymph % (Auto) [place] % (Auto) Eos % (Auto) Lymph # (Auto) Seg Neutrophils % Seg Neutrophils # PT INR APTT D-Dimer Heparin Anti-Xa Level 0.88 H ABG pH POC ABG pCO2 POC ABG pO2 ABG pO2 ABG HCO3 ABG O2 Saturation ABG Base Excess ABG Hemoglobin ABG Oxyhemoglobin ABG Sodium ABG Potassium ABG Chloride ABG Glucose Carboxyhemoglobin Sodium Potassium 3.2 L Chloride 109.7 H Carbon Dioxide BUN 24 H Creatinine Glucose 142 H POC Glucose 220 H Calcium 8.2 L Magnesium Ferritin AST 75 H Alkaline Phosphatase Lactate Dehydrogenase C-Reactive Protein Total Protein 5.8 L Albumin 2.7 L Arterial Blood Glucose Arterial Blood Ionized Calcium Urine WBC (Auto) Coronavirus (PCR) 09/04/20 09/04/20 09/04/20 07:25 07:25 11:57 WBC RBC Hgb 9.0 L Hct 27.9 L MCV MCH MCHC RDW Lymph % (Auto) [place] % (Auto) Eos % (Auto) Lymph # (Auto) Seg Neutrophils % Seg Neutrophils # PT INR APTT D-Dimer Heparin Anti-Xa Level ABG pH POC ABG pCO2 POC ABG pO2 ABG pO2 ABG HCO3 ABG O2 Saturation ABG Base Excess ABG Hemoglobin ABG Oxyhemoglobin ABG Sodium ABG Potassium ABG Chloride ABG Glucose Carboxyhemoglobin Sodium 148 H Potassium Chloride 116.9 H Carbon Dioxide BUN Creatinine Glucose 129 H POC Glucose 113 H Calcium Magnesium Ferritin AST 93 H Alkaline Phosphatase 134 H Lactate Dehydrogenase C-Reactive Protein Total Protein 6.0 L Albumin 2.6 L Arterial Blood Glucose Arterial Blood Ionized Calcium Urine WBC (Auto) Coronavirus (PCR) 09/05/20 09/05/20 09/05/20 06:24 07:17 13:38 WBC RBC Hgb Hct MCV MCH MCHC RDW Lymph % (Auto) [place] % (Auto) Eos % (Auto) Lymph # (Auto) Seg Neutrophils % Seg Neutrophils # PT INR APTT D-Dimer Heparin Anti-Xa Level ABG pH 7.218 L POC ABG pCO2 66.0 H POC ABG pO2 45.8 L 79.1 L ABG pO2 ABG HCO3 ABG O2 Saturation ABG Base Excess ABG Hemoglobin 10.7 L 9.6 L ABG Oxyhemoglobin 74.5 L ABG Sodium 146.5 H 145.4 H ABG Potassium ABG Chloride 115.0 H 117.0 H ABG Glucose 146 H 106 H Carboxyhemoglobin 0.1 L 0 L Sodium 152 H Potassium Chloride 115.9 H Carbon Dioxide BUN Creatinine Glucose 134 H POC Glucose Calcium Magnesium Ferritin AST 69 H Alkaline Phosphatase 168 H Lactate Dehydrogenase C-Reactive Protein Total Protein 5.4 L Albumin 2.7 L Arterial Blood Glucose 146 H 106 H Arterial Blood Ionized Calcium Urine WBC (Auto) Coronavirus (PCR) 09/05/20 09/06/20 09/06/20 17:27 04:15 07:29 WBC RBC Hgb 7.8 L Hct 24.0 L MCV MCH MCHC RDW Lymph % (Auto) [place] % (Auto) Eos % (Auto) Lymph # (Auto) Seg Neutrophils % Seg Neutrophils # PT INR APTT D-Dimer Heparin Anti-Xa Level ABG pH POC ABG pCO2 POC ABG pO2 ABG pO2 184.9 H ABG HCO3 19.9 L ABG O2 Saturation 99.2 H ABG Base Excess -3.5 L ABG Hemoglobin 8.9 L ABG Oxyhemoglobin ABG Sodium ABG Potassium ABG Chloride ABG Glucose Carboxyhemoglobin Sodium Potassium Chloride Carbon Dioxide BUN Creatinine Glucose POC Glucose 124 H Calcium Magnesium Ferritin AST Alkaline Phosphatase Lactate Dehydrogenase C-Reactive Protein Total Protein Albumin Arterial Blood Glucose Arterial Blood Ionized Calcium Urine WBC (Auto) Coronavirus (PCR) 09/06/20 09/06/20 09/06/20 07:29 07:29 12:02 WBC 11.3 H RBC 2.83 L Hgb 7.8 L Hct 24.3 L MCV MCH MCHC RDW 17.7 H Lymph % (Auto) [place] % (Auto) Eos % (Auto) Lymph # (Auto) Seg Neutrophils % Seg Neutrophils # PT INR APTT D-Dimer Heparin Anti-Xa Level ABG pH POC ABG pCO2 POC ABG pO2 ABG pO2 ABG HCO3 ABG O2 Saturation ABG Base Excess ABG Hemoglobin ABG Oxyhemoglobin ABG Sodium ABG Potassium ABG Chloride ABG Glucose Carboxyhemoglobin Sodium 151 H Potassium Chloride 117.6 H Carbon Dioxide BUN 24 H Creatinine Glucose 159 H POC Glucose 158 H Calcium 7.7 L Magnesium Ferritin AST Alkaline Phosphatase Lactate Dehydrogenase C-Reactive Protein Total Protein Albumin Arterial Blood Glucose Arterial Blood Ionized Calcium Urine WBC (Auto) Coronavirus (PCR) 09/07/20 09/08/20 09/08/20 05:21 04:31 04:35 WBC RBC Hgb 7.4 L Hct 22.7 L MCV MCH MCHC RDW Lymph % (Auto) [place] % (Auto) Eos % (Auto) Lymph # (Auto) Seg Neutrophils % Seg Neutrophils # PT INR APTT D-Dimer Heparin Anti-Xa Level ABG pH POC ABG pCO2 49.1 H POC ABG pO2 46.0 L 58.6 L ABG pO2 ABG HCO3 ABG O2 Saturation ABG Base Excess ABG Hemoglobin 8.6 L 7.8 L ABG Oxyhemoglobin 87.7 L ABG Sodium 145.1 H ABG Potassium ABG Chloride 116.0 H 116.0 H ABG Glucose 238 H 255 H Carboxyhemoglobin Sodium Potassium Chloride Carbon Dioxide BUN Creatinine Glucose POC Glucose Calcium Magnesium Ferritin AST Alkaline Phosphatase Lactate Dehydrogenase C-Reactive Protein Total Protein Albumin Arterial Blood Glucose 238 H 255 H Arterial Blood Ionized Calcium Urine WBC (Auto) Coronavirus (PCR) 09/08/20 09/08/20 09/08/20 12:45 17:26 19:15 WBC RBC Hgb Hct MCV MCH MCHC RDW Lymph % (Auto) [place] % (Auto) Eos % (Auto) Lymph # (Auto) Seg Neutrophils % Seg Neutrophils # PT INR APTT D-Dimer Heparin Anti-Xa Level ABG pH POC ABG pCO2 POC ABG pO2 ABG pO2 ABG HCO3 ABG O2 Saturation ABG Base Excess ABG Hemoglobin ABG Oxyhemoglobin ABG Sodium ABG Potassium ABG Chloride ABG Glucose Carboxyhemoglobin Sodium Potassium Chloride Carbon Dioxide BUN Creatinine Glucose POC Glucose 270 H 294 H Calcium Magnesium Ferritin AST Alkaline Phosphatase Lactate Dehydrogenase C-Reactive Protein 4.90 H Total Protein Albumin Arterial Blood Glucose Arterial Blood Ionized Calcium Urine WBC (Auto) Coronavirus (PCR) 09/08/20 09/08/20 09/08/20 19:15 19:15 19:15 WBC RBC Hgb Hct MCV MCH MCHC RDW Lymph % (Auto) [place] % (Auto) Eos % (Auto) Lymph # (Auto) Seg Neutrophils % Seg Neutrophils # PT INR APTT D-Dimer 1449.12 H Heparin Anti-Xa Level ABG pH POC ABG pCO2 POC ABG pO2 ABG pO2 ABG HCO3 ABG O2 Saturation ABG Base Excess ABG Hemoglobin ABG Oxyhemoglobin ABG Sodium ABG Potassium ABG Chloride ABG Glucose Carboxyhemoglobin Sodium Potassium Chloride Carbon Dioxide BUN Creatinine Glucose POC Glucose Calcium Magnesium Ferritin 1485.0 H AST Alkaline Phosphatase Lactate Dehydrogenase 541 H C-Reactive Protein Total Protein Albumin Arterial Blood Glucose Arterial Blood Ionized Calcium Urine WBC (Auto) Coronavirus (PCR) 09/09/20 09/09/20 09/09/20 04:40 12:15 17:36 WBC RBC Hgb Hct MCV MCH MCHC RDW Lymph % (Auto) [place] % (Auto) Eos % (Auto) Lymph # (Auto) Seg Neutrophils % Seg Neutrophils # PT INR APTT D-Dimer Heparin Anti-Xa Level ABG pH POC ABG pCO2 POC ABG pO2 75.1 L ABG pO2 ABG HCO3 ABG O2 Saturation ABG Base Excess ABG Hemoglobin 10.7 L ABG Oxyhemoglobin 93.9 L ABG Sodium 146.7 H ABG Potassium ABG Chloride 113.0 H ABG Glucose 420 H Carboxyhemoglobin 0.2 L Sodium Potassium Chloride Carbon Dioxide BUN Creatinine Glucose POC Glucose 281 H 368 H Calcium Magnesium Ferritin AST Alkaline Phosphatase Lactate Dehydrogenase C-Reactive Protein Total Protein Albumin Arterial Blood Glucose 420 H Arterial Blood Ionized Calcium Urine WBC (Auto) Coronavirus (PCR) 09/10/20 09/10/20 09/10/20 04:45 07:15 11:51 WBC RBC Hgb 7.7 L Hct 24.8 L MCV MCH MCHC RDW Lymph % (Auto) [place] % (Auto) Eos % (Auto) Lymph # (Auto) Seg Neutrophils % Seg Neutrophils # PT INR APTT D-Dimer Heparin Anti-Xa Level ABG pH POC ABG pCO2 POC ABG pO2 ABG pO2 ABG HCO3 ABG O2 Saturation ABG Base Excess ABG Hemoglobin 8.0 L ABG Oxyhemoglobin ABG Sodium 150.8 H ABG Potassium ABG Chloride 117.0 H ABG Glucose 461 H Carboxyhemoglobin Sodium Potassium Chloride Carbon Dioxide BUN Creatinine Glucose POC Glucose 358 H Calcium Magnesium Ferritin AST Alkaline Phosphatase Lactate Dehydrogenase C-Reactive Protein Total Protein Albumin Arterial Blood Glucose 461 H Arterial Blood Ionized Calcium Urine WBC (Auto) Coronavirus (PCR) Chest x-ray: other (none today) Allied health notes reviewed: nursing
[2020-09-10] MEDS ORDERED: DEXTROSE 50% IN WATER (25GM) 50 ML SYRINGE IV PRN (13:56)
[2020-09-10] MEDS ORDERED: INSULIN LISPRO 100 UNIT/ML VIAL 3 mL SUB-Q SCH (14:00)
[2020-09-10] MEDS ORDERED: INSULIN GLARGINE 100 UNITS/ML SUB-Q SCH (14:00)
--- NOTE | 2020-09-10 16:01 | Progress Note ---
Assessment and Plan Assessment and plan: 64 YO Male HD #26 with PVD, Coronavirus Infection, Acute Respiratory Failure, Sepsis, Pneumonia, Toxic Encephalopathy, Necrosis of Surgical wound. Patient resting in bed. No acute decompensation overnight. No improvement overnight. Patient remains critically ill. Patient prognosis is poor to guarded. 09/10: Significant elevated blood sugar. Patient with labile blood sugar issues. Aspiration precautions continue vent weaning per translator and interpreter. Continue antibiotics management. Patient with noted hypernatremia we will continue to monitor sodium levels. Also with anemia of chronic disease we will monitor H&H closely. (1) severe sepsis with shock Current Visit: Yes Status: Acute Plan to address problem: Sepsis protocol: CBC, CMP, IV fluid resuscitation therapy as clinically indicated, IV antibiotic therapy, monitor urine output every shift, maintain mean arterial blood pressure greater than or equal to 65, (2) Acute hypoxemic respiratory failure Current Visit: Yes Status: Acute Plan to address problem: Wean vent as tolerated, daily ABG, spontaneous breathing trial daily, chest x- ray, sedation holiday, supportive care. (3) Necrosis of surgical wound Current Visit: Yes Status: Acute Plan to address problem: Surgery team consulted. pain control, supportive care. Further care as per vascular surgery team. (4) CHF (congestive heart failure) Current Visit: No Status: Chronic Qualifiers: Heart failure chronicity: chronic Plan to address problem: Strict I/O, monitor urine output every shift, daily weight, monitor fluid balance, afterload reduction, blood pressure control. (5) Hypertension Current Visit: Yes Status: Acute Qualifiers: Hypertension type: essential hypertension Qualified Code(s): I10 - Essential (primary) hypertension Plan to address problem: Monitor blood pressure every shift, continue medical management (6) UTI (urinary tract infection) Current Visit: Yes Status: Acute Qualifiers: Encounter type: initial encounter Plan to address problem: CBC, CMP, urinalysis, IV antibiotic therapy. (7) Coronavirus infection Current Visit: Yes Status: Acute Plan to address problem: Coronavirus protocol: IV antibiotic therapy, IV steroid therapy, supplemental oxygen, vitamin C supplementation, zinc supplementation, (8) peripheral vascular disease (9) DVT prophylaxis Current Visit: Yes Status: Acute Plan to address problem: SCD to bilateral lower extremities while in bed, anticoagulation as per surgical team (9) Toxic metabolic encephalopathy Current Visit: Yes Status: Acute Plan to address problem: Supportive care, treat sepsis, (10) Advance care planning Current Visit: Yes Status: Acute Plan to address problem: Disease education conducted, patient is full code, prognosis discussed, care plan discussed, patient knowledges understanding and agreement with care plan, +30 minutes (10) history of alcohol abuse [11] history of gout [12] left lower extremity/left foot ulcer The high probability of a clinically significant, sudden or life threatening deterioration of the [cardiac, pulmonary, renal, infectious disease] system(s) required my full and direct attention, intervention and personal management. The aggregate critical care time was [65] minutes. This time is in addition to time spent performing reported procedures but includes the following: [x] Data Review and interpretation [x] Patient assessment and monitoring of vital signs [x] Documentation [x] Medication orders and management History Interval history: Patient seen and examined remains on full mechanical ventilation Hospitalist Physical - Physical exam Narrative exam: General appearance: Present: Mild distress on full ventilatory support. Limited exam due to PPE conservation during COVID Pandemic - EENT Eyes: Present: miosis ENT: hearing decreased - Neck Neck: Present: supple - Respiratory Respiratory effort: labored Respiratory: bilateral: diminished, rhonchi - Cardiovascular Rhythm: regular Heart Sounds: Present: S1 & S2 - Extremities Extremity abnormal: edema Peripheral Pulses: abnormal (Capillary refill greater than 3.5 seconds) - Abdominal General gastrointestinal: soft, non-tender, non-distended - Integumentary Integumentary: Present: clear, erythema - Psychiatric Psychiatric: no appropriate mood/affect, no intact judgment & insight, no memory intact - Neurologic Neurologic: CNII-XII intact, no gait normal - Constitutional Vitals: Temp Pulse Resp BP Pulse Ox 99.1 F 77 22 113/49 95 09/10/20 03:33 09/10/20 15:08 09/10/20 15:00 09/10/20 15:08 09/10/20 15:08 General appearance: Present: no acute distress, well-nourished Results - Labs CBC & Chem 7: 09/10/20 07:15 09/06/20 07:29 Labs: Laboratory Last Values WBC 11.3 K/mm3 (4.5-11.0) H 09/06/20 07:29 RBC 2.83 M/mm3 (3.65-5.03) L 09/06/20 07:29 Hgb 7.7 gm/dl (11.8-15.2) L 09/10/20 07:15 Hct 24.8 % (35.5-45.6) L 09/10/20 07:15 MCV 86 fl (84-94) 09/06/20 07:29 MCH 28 pg (28-32) 09/06/20 07:29 MCHC 32 % (32-34) 09/06/20 07:29 RDW 17.7 % (13.2-15.2) H 09/06/20 07:29 Plt Count 214 K/mm3 (140-440) 09/10/20 07:15 Lymph % (Auto) 12.7 % (13.4-35.0) L 09/02/20 15:55 [place] % (Auto) 4.5 % (0.0-7.3) 09/02/20 15:55 Eos % (Auto) 0.0 % (0.0-4.3) 09/02/20 15:55 Baso % (Auto) 0.3 % (0.0-1.8) 09/02/20 15:55 Lymph # (Auto) 1.4 K/mm3 (1.2-5.4) 09/02/20 15:55 [place] # (Auto) 0.5 K/mm3 (0.0-0.8) 09/02/20 15:55 Eos # (Auto) 0.0 K/mm3 (0.0-0.4) 09/02/20 15:55 Baso # (Auto) 0.0 K/mm3 (0.0-0.1) 09/02/20 15:55 Seg Neutrophils % 82.5 % (40.0-70.0) H 09/02/20 15:55 Seg Neutrophils # 9.3 K/mm3 (1.8-7.7) H 09/02/20 15:55 PT 15.5 Sec. (12.2-14.9) H 09/02/20 15:55 INR 1.23 (0.87-1.13) H 09/02/20 15:55 APTT 50.2 Sec. (24.2-36.6) H 09/02/20 15:55 D-Dimer 1449.12 ng/mlDDU (0-234) H 09/08/20 19:15 Heparin Anti-Xa Level 0.47 U.I./ml (0.3-0.7) 09/06/20 07:29 ABG pH 7.406 (7.320-7.450) 09/10/20 04:45 POC ABG pCO2 46.2 mmHg (32.0-48.0) 09/10/20 04:45 ABG pCO2 29.5 mm Hg 09/06/20 04:15 POC ABG pO2 100.5 mmHg (83-108) 09/10/20 04:45 ABG pO2 184.9 mm Hg (80.0-90.0) H 09/06/20 04:15 POC ABG HCO3 28.4 09/10/20 04:45 ABG HCO3 19.9 mmol/L (20.0-26.0) L 09/06/20 04:15 ABG O2 Saturation 99.2 % (95.0-99.0) H 09/06/20 04:15 ABG O2 Content 12.6 (0.0-44) 09/06/20 04:15 POC ABG Base Excess 3.3 09/10/20 04:45 ABG Base Excess -3.5 mmol/L (-2.0-3.0) L 09/06/20 04:15 ABG Hemoglobin 8.0 (12.0-17.5) L 09/10/20 04:45 ABG Oxyhemoglobin 96.3 (94-98) 09/10/20 04:45 ABG Carboxyhemoglobin 1.2 % (0.0-5.0) 09/06/20 04:15 ABG Methemoglobin 0.3 (0.0-1.5) 09/10/20 04:45 ABG Sodium 150.8 mmol/L (136.0-145.0) H 09/10/20 04:45 ABG Potassium 4.3 mmol/L (3.40-4.50) 09/10/20 04:45 ABG Chloride 117.0 mmol/L (98-107) H 09/10/20 04:45 ABG Glucose 461 mg/dL (65-95) H 09/10/20 04:45 Oxyhemoglobin 97.5 % (95.0-99.0) 09/06/20 04:15 Carboxyhemoglobin 1.0 (0.5-1.5) 09/10/20 04:45 FiO2 55.0 09/10/20 04:45 Sodium 151 mmol/L (137-145) H 09/06/20 07:29 Potassium 4.0 mmol/L (3.6-5.0) 09/06/20 07:29 Chloride 117.6 mmol/L (98-107) H 09/06/20 07:29 Carbon Dioxide 25 mmol/L (22-30) 09/06/20 07:29 Anion Gap 12 mmol/L 09/06/20 07:29 BUN 24 mg/dL (9-20) H 09/06/20 07:29 Creatinine 1.1 mg/dL (0.8-1.3) 09/06/20 07:29 Estimated GFR > 60 ml/min 09/06/20 07:29 BUN/Creatinine Ratio 22 % 09/06/20 07:29 Glucose 159 mg/dL (75-100) H 09/06/20 07:29 POC Glucose 358 mg/dL (70-105) H 09/10/20 11:51 Lactic Acid 1.40 mmol/L (0.7-2.0) 09/02/20 15:55 Calcium 7.7 mg/dL (8.4-10.2) L 09/06/20 07:29 Magnesium 1.80 mg/dL (1.7-2.3) 08/31/20 04:30 Ferritin 1485.0 ng/mL (30.0-300.0) H 09/08/20 19:15 Total Bilirubin 0.40 mg/dL (0.1-1.2) 09/05/20 07:17 AST 69 units/L (5-40) H 09/05/20 07:17 ALT 28 units/L (7-56) 09/05/20 07:17 Alkaline Phosphatase 168 units/L (35-129) H 09/05/20 07:17 Lactate Dehydrogenase 541 units/L (91-180) H 09/08/20 19:15 C-Reactive Protein 4.90 mg/dL (0.00-1.30) H 09/08/20 19:15 Total Protein 5.4 g/dL (6.3-8.2) L 09/05/20 07:17 Albumin 2.7 g/dL (3.9-5) L 09/05/20 07:17 Albumin/Globulin Ratio 1.0 % 09/05/20 07:17 Procalcitonin 0.16 ng/mL (<0.15) 09/08/20 19:15 Arterial Blood Glucose 461 mg/dL (65-95) H 09/10/20 04:45 Arterial Blood Ionized Calcium 4.8 mg/dL (4.6-5.3) 09/10/20 04:45 Urine Color Yellow (Yellow) 08/15/20 Unknown Urine Turbidity Clear (Clear) 08/15/20 Unknown Urine pH 6.0 (5.0-7.0) 08/15/20 Unknown Ur Specific [place] 1.017 (1.003-1.030) 08/15/20 Unknown Urine Protein 100 mg/dl mg/dL (Negative) 08/15/20 Unknown Urine Glucose (UA) 50 mg/dL (Negative) 08/15/20 Unknown Urine Ketones Neg mg/dL (Negative) 08/15/20 Unknown Urine Blood Lg (Negative) 08/15/20 Unknown Urine Nitrite Neg (Negative) 08/15/20 Unknown Urine Bilirubin Neg (Negative) 08/15/20 Unknown Urine Urobilinogen < 2.0 mg/dL (<2.0) 08/15/20 Unknown Ur Leukocyte Esterase Sm (Negative) 08/15/20 Unknown Urine WBC (Auto) 31.0 /HPF (0.0-6.0) H 08/15/20 Unknown Urine RBC (Auto) 46.0 /HPF (0.0-6.0) 08/15/20 Unknown Urine Mucus Few /HPF 08/15/20 Unknown Nasal Screen MRSA (PCR) Negative (Negative) 09/06/20 12:41 Vancomycin Trough 14.2 ug/mL (5.0-20.0) 09/05/20 11:12 Coronavirus (PCR) Positive (Negative) A 08/29/20 Unknown Renae/IV: Voiding Method Indwelling Catheter IV Catheter Type [Right Hand] INT / Saline Lock IV Catheter Type [Right Upper PICC Line arm] IV Catheter Type [Right Wrist] INT / Saline Lock IV Catheter Type [Right INT / Saline Lock Forearm] IV Catheter Type [Left Hand] INT / Saline Lock Active Medications - Current Medications Current Medications: Generic Name Dose Route Start Last Admin Trade Name Freq PRN Reason Stop Dose Admin Acetaminophen 650 mg 08/15/20 18:13 09/02/20 12:17 Acetaminophen 325 Mg Tab PO 650 mg Q4H PRN Administration Pain MILD(1-3)/Fever >100.5/REYES Albuterol 2.5 mg 08/15/20 18:13 08/20/20 12:53 Albuterol 2.5 Mg/3 Ml Nebu IH 2.5 mg Q4HRT PRN Administration Shortness Of Breath Amlodipine Besylate 10 mg 08/16/20 10:00 09/10/20 10:48 Amlodipine 10 Mg Tab PO 10 mg QDAY DELFINO Administration Lipase/Protease/Amylase 1 each 09/06/20 11:37 Lipase 10,500/Protease 25,000/Amylase 43,750 (Units) Dr Lisa FEEDTUBE PRN PRN For Clogged Feeding Tube Ascorbic Acid 500 mg 09/03/20 22:00 09/10/20 10:49 Ascorbic Acid 500 Mg Tab PO 500 mg BID DELFINO Administration Atorvastatin Calcium 40 mg 08/15/20 22:00 09/09/20 22:53 Atorvastatin 40 Mg Tab PO 40 mg QHS DELFINO Administration Cilostazol 100 mg 08/15/20 22:00 09/10/20 12:00 Cilostazol 100 Mg Tab PO 100 mg BID DELFINO Administration Clopidogrel Bisulfate 75 mg 08/16/20 10:00 09/10/20 10:48 Clopidogrel 75 Mg Tab PO 75 mg QDAY DELFINO Administration Dexamethasone 6 mg 09/02/20 16:00 09/10/20 10:47 Dexamethasone 4 Mg/Ml Vial IV 09/12/20 15:59 6 mg DAILY DELFINO Administration Dextrose 50 ml 09/10/20 13:56 Dextrose 50% In Water (25gm) 50 Ml Syringe IV Q30MIN PRN Hypoglycemia Protocol Enoxaparin Sodium 90 mg 09/05/20 22:00 09/10/20 10:48 Enoxaparin 100 Mg/1 Ml Inj SUB-Q 90 mg Q12HR DELFINO Administration Fentanyl 50 mcg 09/05/20 05:23 Fentanyl 100 Mcg/2 Ml Inj IV Q10MIN PRN ANALGESIA Folic Acid 1 mg 08/16/20 10:00 09/10/20 10:49 Folic Acid 1 Mg Tab PO 1 mg QDAY DELFINO Administration Hydrophilic Ointment 1 applic 09/05/20 05:23 Lip Therapy Vaseline TP Q2HR PRN Dry Lips Sodium Chloride 500 mls @ 1 mls/hr 09/02/20 13:41 09/02/20 18:53 Nacl 0.9% 500 Ml IV 1 mls/hr DIRECT PRN Administration ARTERIAL LINE FLUSH Norepinephrine 4 mg in 250 mls @ 7.5 mls/hr 09/02/20 15:00 09/07/20 06:50 Levophed Drip 4 Mg/Ns 250 Ml IV 0 mcg/min TITR DELFINO 0 mls/hr Titration Protocol 2 MCG/MIN Vasopressin 20 unit/ Sodium 101 mls @ 9.09 mls/hr 09/02/20 16:00 Chloride IV TITR DELFINO Protocol 0.03 UNITS/MIN Fentanyl Citrate 2,000 mcg in 100 mls @ 4.465 mls/hr 09/05/20 06:00 09/10/20 01:00 Fentanyl Drip Premix IV 1 mcg/kg/hr TITR DELFINO 4.465 mls/hr Administration Protocol 1 MCG/KG/HR Midazolam HCl 100 mg/ Sodium 100 mls @ 2 mls/hr 09/05/20 06:00 09/06/20 08:30 Chloride IV 0 mg/hr TITR DELFINO 0 mls/hr Titration Protocol 2 MG/HR Insulin Glargine 5 units 09/10/20 14:00 Insulin Glargine 100 Units/Ml SUB-Q DAILY [facility] Insulin Human Lispro 0 unit 09/10/20 14:00 Insulin Lispro 100 Unit/Ml Vial 3 Ml SUB-Q Q6H [facility] Protocol Lansoprazole 30 mg 09/05/20 10:00 09/10/20 10:48 Lansoprazole 30 Mg Solutab FEEDTUBE 30 mg QDAY DELFINO Administration Loperamide HCl 2 mg 08/26/20 23:00 08/28/20 12:51 Loperamide 2 Mg Cap PO 2 mg PRN PRN Administration Diarrhea Lorazepam 1 mg 09/06/20 17:25 Lorazepam 2 Mg/Ml Vial IV Q4H PRN Anxiety Metoprolol Tartrate 50 mg 08/15/20 22:00 09/10/20 10:48 Metoprolol Tartrate 50 Mg Tab PO 50 mg BID DELFINO Administration Midazolam HCl 2 mg 09/05/20 05:23 09/05/20 05:56 Midazolam 2 Mg/2 Ml Inj IV 2 mg Q10MIN PRN Administration Sedation Multi-Ingred Cream/Lotion/Oil/Oint 1 applic 09/05/20 05:23 Mineral Oil/Petrolatum, White Ophth Oint 3.5 Gm OU Q4HR PRN Dry Eye(s) Ondansetron HCl 4 mg 08/15/20 18:13 08/18/20 17:46 Ondansetron 4 Mg/2 Ml Inj IV 4 mg Q8H PRN Administration Nausea And Vomiting Simple Syrup 15 ml 09/06/20 11:37 Simple Syrup 15 Ml FEEDTUBE PRN PRN Hypoglycemia Simple Syrup 30 ml 09/06/20 11:37 Simple Syrup 15 Ml FEEDTUBE PRN PRN Hypoglycemia Sodium Bicarbonate 325 mg 09/06/20 11:37 Sodium Bicarbonate 325 Mg Tab FEEDTUBE PRN PRN For Clogged Feeding Tube Sodium Chloride 10 ml 08/15/20 22:00 09/10/20 10:49 Sodium Chloride 0.9% 10 Ml Flush Syringe IV 10 ml BID DELFINO Administration Sodium Chloride 10 ml 08/15/20 18:13 Sodium Chloride 0.9% 10 Ml Flush Syringe IV PRN PRN LINE FLUSH Thiamine HCl 100 mg 08/16/20 10:00 09/10/20 10:48 Thiamine 100 Mg Tab PO 100 mg QDAY DELFINO Administration Zinc Sulfate 220 mg 09/03/20 22:00 09/10/20 10:49 Zinc Sulfate 220 Mg Cap PO 220 mg BID DELFINO Administration Nutrition/Malnutrition Assess - Dietary Evaluation Nutrition/Malnutrition Findings: Nutrition Notes Start: 08/21/20 14:41 Freq: Status: Active Protocol: Document 09/10/20 12:44 (Rec: 09/10/20 12:48 [id number]) Nutrition Notes Initial or Follow up Reassessment Current Diagnosis Coronary Artery Disease,Sepsis ,Hypertension,Heart Failure, Hyperlipidemia Other Pertinent Diagnosis PVD, ETOH dep, acute resp failure, pneu, gout, (L) foot ulcer Current Diet Vital HP at 70 ml/hr Labs/Tests POC BG 358 Pertinent Medications Decadron Height 5 ft 4 in Weight 90.3 kg [place] Body Weight (kg) 59.09 BMI 34.2 Weight Status Obese Subjective/Other Information FU for TF tolerance. Observed Vital HP running at goal rate. 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 Yes Is Patient Ambulatory and/or Out of Bed No REE-(Brooks-St. Jeor-confined to bed) 1935.768 Kcal/Kg value to use for calculation 19 Approximate Energy Requirements Using 1716 kcal/Kg Calculation Used for Recommendations Kcal/kg Additional Notes Protein needs are >/=2g/kg IBW (>/=118g/day) Fluid needs are 1ml/kcal Nutrition Intervention Change Diet Order: Continue TF Nutrition Support: Vital High Protein at 70ml/hr For hypernatremia flush 200ml q4h, once hypernatremia is resolved flush 100ml q4h Kcal 1,680 Protein (gm) 147 Fluid (mL) 1,404 Add Supplement/Snack (indicate name/kcal [place] BID /protein ) Provides kCal: 190 Provides Protein (gm) 5 Goal #1 Meet at least 75% of energy and protein needs Goal #2 Wound healing Anticipated Discharge Needs: Unable to determine at this time Follow-Up By: 09/12/20 Additional Comments FU for TF tolerance, labs
[2020-09-10] MEDS: INSULIN LISPRO 100 UNIT/ML VIAL 3 mL SUB-Q SCH ×2 (18:30→23:45)
--- NOTE | 2020-09-11 04:19 | XRay Report ---
CHEST 1 VIEW 0320 INDICATION / CLINICAL INFORMATION: follow up respiratory failure COMPARISON: 09/10/2020 FINDINGS: SUPPORT DEVICES: Stable HEART / MEDIASTINUM: Stable LUNGS / PLEURA: Bilateral diffuse infiltrates have not changed significantly considering differences in lung volumes. No pneumothorax. ADDITIONAL FINDINGS: No significant additional findings. Signer Name: Edy Roberts MD Signed: 09/11/2020 4:15 AM Workstation Name: [id number]
[2020-09-11] MEDS: INSULIN LISPRO 100 UNIT/ML VIAL 3 mL SUB-Q SCH ×3 (05:28→18:16)
[2020-09-11 06:22] LABS: Hematocrit 23.4 % (35.5-45.6); Hemoglobin 7.1 gm/dl (11.8-15.2); Mean Corpuscular HGB Conc 30 % (32-34); Mean Corpuscular Volume 92 fl (84-94); Platelet Count 183 K/mm3 (140-440); Red Blood Count 2.55 M/mm3 (3.65-5.03); Red Cell Distribution Width 19.6 % (13.2-15.2)
[2020-09-11 06:40] LABS: BUN/Creatinine Ratio 66; Blood Urea Nitrogen 59 mg/dL (9-20); Calcium 8.2 mg/dL (8.4-10.2); Hemolysis Index 0
--- NOTE | 2020-09-11 09:09 | Progress Note ---
Assessment and Plan Cultures: 08/16/2020 SARS CoV2 PCR: Negative 08/29/2020 SARS CoV2 PCR: Positive 08/15/2020 urine culture: No growth 08/24/2020 blood culture: No growth 08/28/2020 blood culture: No growth 08/28/2020 urine culture: No growth MRSA PCR negative 09/05/2020 Sputum +Barby A/P: 64-year-old male with hypertension, coronary artery disease, peripheral vascular disease, gout, alcohol dependence was admitted to the hospital on 08/15/2020 due to bleeding from his left foot which is a site of a previous surgery. Patient was noted to have wound dehiscence complicated by wound necrosis. Was seen by vascular surgery. He underwent a TMA. Due to fever, patient was receiving IV levofloxacin for UTI. COVID-19 test done on 08/29/2020 for placement reasons came back positive. Patient has been having intermittent fevers since 08/28/2020. 09/02/2020, a code MET was called due to tachypnea and labored respirations: #Shock: Probably from severe COVID-19. #Bilateral pneumonia: Secondary to COVID-19. Patient with severe hypoxia, elevated inflammatory markers, i,proving. Recently had completed levofloxacin. Sputum with barby, likely a colonizer. Markers improving. #Acute hypoxic respiratory failure: remains intubated improving FIO2=55 #Peripheral vascular disease, wound dehiscence and necrosis: underwent TMA by vascular surgery now with wound VAC #Coronary artery disease, CHF #DM: uncontrolled with hyperglycemia. Recs: -Continue IV/PO Dexamethasone 6 mg daily x 10 days D10 then taper -Completed remdesivir -S/p empiric 8 days of aztreonam and vanco -prophylactic anticoagulation based on d-dimer per hospital protocol -trend ferritin, LDH, d-dimer, CRP ordered today -monitor off abx -continue wound care Corry Perrin MD [facility] ([facility]) Office [phone] Subjective Date of service: 09/11/20 Principal diagnosis: Ac hypoxemic resp failure; COVID-19; Pneumonia; Sepsis; PVD; L. foot ulcer Interval history: Remains intubated, FiO2 55, no fever. Objective - Exam Narrative Exam: Physical Exam: reviewed ED and hospitalist notes. Deferred to prevent COVID-19 transmission. - Constitutional Vitals: Vital Signs Temp Pulse Resp BP Pulse Ox 99.3 F 81 22 117/51 94 09/11/20 03:42 09/11/20 07:35 09/11/20 06:15 09/11/20 07:35 09/11/20 07:35 Temperature -Last 24 Hours Temperature 99.3 F Temperature 99.9 F Temperature 99.7 F Temperature 98.6 F Temperature 98.5 F - Labs CBC & Chem 7: 09/11/20 06:10 09/11/20 06:10 Labs: Abnormal lab results 09/10/20 09/10/20 09/10/20 Range/Units 11:51 17:28 23:29 WBC (4.5-11.0) K/mm3 RBC (3.65-5.03) M/mm3 Hgb (11.8-15.2) gm/dl Hct (35.5-45.6) % MCHC (32-34) % RDW (13.2-15.2) % POC ABG pCO2 (32.0-48.0) mmHg POC ABG pO2 (83-108) mmHg ABG Hemoglobin (12.0-17.5) ABG Sodium (136.0-145.0) mmol/L ABG Chloride (98-107) mmol/L ABG Glucose (65-95) mg/dL Sodium (137-145) mmol/L Chloride (98-107) mmol/L BUN (9-20) mg/dL Glucose (75-100) mg/dL POC Glucose 358 H 434 H 384 H (70-105) mg/dL Calcium (8.4-10.2) mg/dL Arterial Blood Glucose (65-95) mg/dL 09/11/20 09/11/20 09/11/20 Range/Units 04:55 05:03 06:10 WBC 11.1 H (4.5-11.0) K/mm3 RBC 2.55 L (3.65-5.03) M/mm3 Hgb 7.1 L (11.8-15.2) gm/dl Hct 23.4 L (35.5-45.6) % MCHC 30 L (32-34) % RDW 19.6 H (13.2-15.2) % POC ABG pCO2 49.3 H (32.0-48.0) mmHg POC ABG pO2 78.2 L (83-108) mmHg ABG Hemoglobin 8.2 L (12.0-17.5) ABG Sodium 155.0 H (136.0-145.0) mmol/L ABG Chloride 120.0 H (98-107) mmol/L ABG Glucose 515 H (65-95) mg/dL Sodium (137-145) mmol/L Chloride (98-107) mmol/L BUN (9-20) mg/dL Glucose (75-100) mg/dL POC Glucose 306 H (70-105) mg/dL Calcium (8.4-10.2) mg/dL Arterial Blood Glucose 515 H (65-95) mg/dL 09/11/20 Range/Units 06:10 WBC (4.5-11.0) K/mm3 RBC (3.65-5.03) M/mm3 Hgb (11.8-15.2) gm/dl Hct (35.5-45.6) % MCHC (32-34) % RDW (13.2-15.2) % POC ABG pCO2 (32.0-48.0) mmHg POC ABG pO2 (83-108) mmHg ABG Hemoglobin (12.0-17.5) ABG Sodium (136.0-145.0) mmol/L ABG Chloride (98-107) mmol/L ABG Glucose (65-95) mg/dL Sodium 159 H D (137-145) mmol/L Chloride 121.9 H (98-107) mmol/L BUN 59 H (9-20) mg/dL Glucose 530 H* (75-100) mg/dL POC Glucose (70-105) mg/dL Calcium 8.2 L (8.4-10.2) mg/dL Arterial Blood Glucose (65-95) mg/dL
[2020-09-11] MEDS ORDERED: INSULIN GLARGINE 100 UNITS/ML SUB-Q SCH ×2 (10:00→22:00)
[2020-09-11] MEDS: dexAMETHasone 4 MG/ML VIAL IV SCH (10:12)
[2020-09-11] MEDS: ASCORBIC ACID 500 MG TAB PO SCH (10:13)
[2020-09-11] MEDS: THIAMINE 100 MG TAB PO SCH (10:13)
[2020-09-11] MEDS: FOLIC ACID 1 MG TAB PO SCH (10:13)
[2020-09-11] MEDS: CLOPIDOGREL 75 MG TAB PO SCH (10:13)
[2020-09-11] MEDS: LANSOPRAZOLE 30 MG SOLUTAB FEEDTUBE SCH (10:13)
[2020-09-11] MEDS: METOPROLOL TARTRATE 50 MG TAB PO SCH (10:13)
[2020-09-11] MEDS: amLODIPine 10 MG TAB PO SCH (10:13)
[2020-09-11] MEDS: ENOXAPARIN 100 MG/1 ML INJ SUB-Q SCH (10:14)
[2020-09-11] MEDS: CILOSTAZOL 100 MG TAB PO SCH (10:14)
[2020-09-11] MEDS: ZINC SULFATE 220 MG CAP PO SCH (10:14)
--- NOTE | 2020-09-11 12:51 | Progress Note ---
Assessment and Plan Acute hypoxemic respiratory failure, on mechanical ventilatory support. COVID-19 infection. Bilateral pneumonia versus pulmonary edema. Severe sepsis with shock. Peripheral vascular disease. Anemia that is microcytic. History of alcohol abuse. Acute encephalopathy. History of obesity. History of coronary artery disease. History of gout. Hyperlipidemia. Hypertension, now hypotensive. Left lower extremity / left foot ulcer. - Lantus dosing increased - Free water flushes increased to 300 mls q4h - begin 1/2 NS @ 75 mls/hr X 2 liters re: azotemia and hypernatremia - continue current vent settings - continue daily SAT and SBT assessment as tolerated - continue to wean supplemental oxygen for target O2 sat's > 92% acutely - continue care as below otherwise; - VAP bundle addressed - continue lung protective strategies - continue bronchodilators with pulmonary hygiene per RT - wean per pulmonary driven protocols otherwise - continue accuchecks with glycemic control per SSI (While critically ill target blood glucose of 140-180 mg/dL; avoid hypoglycemia) - sedation prn for target RASS 0 to -1 - avoid nephrotoxins, renally dose all medications - accuchecks with glycemic control per SSI (While critically ill target blood glucose of 140-180 mg/dL; avoid hypoglycemia) - avoid benzodiazepine's, reduce the possibility of delirium - complete AB's per ID rec's - prn analgesia per CPOT score - Maintenance of sleep-wake cycle, avoid delirium - enteral nutritional support at goal rate as tolerated - G.I. & VTE prophylaxis - PT/OT/ROM exercises - continue mobility protocols for pressure ulcer prophylaxis - Monitor hemodynamics closely - continue other care per attending / other consultants - discharge planning ongoing concurrently COVID SPECIFIC INTERVENTIONS - completed Remdesivir as per ID/Pulmonary developed protocols - continue systemic steroids for severe COVID-19 infection empirically - follow repeat COVID tests results - zinc and vitamin C supplementation - Monitor inflammatory markers per facility protocol - ferritin, Ddimer, CRP - therapeutic anticoagulation per system Protocol based on d-dimer and clinical considerations - Continue contact and airborne isolation .... Re-evaluate in am & prn CONDITION: CRITICAL PROGNOSIS: GUARDED CODE STATUS: FULL CODE The high probability of a clinically significant, sudden or life-threatening deterioration of the [respiratory, cardiovascular, renal & neurologic] system(s) required my full and direct attention, intervention and personal management. The aggregate critical care time was [32] minutes without overlap. Time includes spent on; [x] Data Review and interpretation [x] Patient assessment and monitoring of vital signs [x] Documentation [x] Medication orders and management Subjective Date of service: 09/11/20 Principal diagnosis: Ac hypoxemic resp failure; COVID-19; Pneumonia; Sepsis; PVD; L. foot ulcer Interval history: Patient is seen today for: Acute hypoxemic respiratory failure; COVID-19 infection; Bilateral pneumonia versus pulmonary edema; Severe sepsis with shock; Peripheral vascular disease; Acute encephalopathy; Left lower extremity / left foot ulcer. Seen and examined at bedside; 24hour events reviewed; nursing and respiratory care staff consulted; no adverse overnight events reported to me; resting peacefully in bed; remains on MVS; hyperglycemia worse as is hypernatremia; oxygenation improved and FiO2 weaned to 55%; no new issues otherwise Objective Vital Signs - 12hr 09/11/20 09/11/20 09/11/20 01:00 01:15 01:30 Temperature Pulse Rate 84 90 94 H Pulse Rate [ From Monitor] Respiratory 22 21 25 H Rate Blood Pressure 115/51 110/50 111/48 O2 Sat by Pulse 97 96 97 Oximetry 09/11/20 09/11/20 09/11/20 01:45 02:00 02:15 Temperature Pulse Rate 82 86 84 Pulse Rate [ From Monitor] Respiratory 22 22 22 Rate Blood Pressure 117/52 114/51 118/46 O2 Sat by Pulse 97 97 96 Oximetry 09/11/20 09/11/20 09/11/20 02:30 02:45 03:00 Temperature Pulse Rate 84 83 85 Pulse Rate [ From Monitor] Respiratory 22 22 22 Rate Blood Pressure 109/50 116/48 118/47 O2 Sat by Pulse 96 97 96 Oximetry 09/11/20 09/11/20 09/11/20 03:15 03:30 03:42 Temperature 99.3 F Pulse Rate 85 90 Pulse Rate [ From Monitor] Respiratory 22 21 Rate Blood Pressure 104/46 122/54 O2 Sat by Pulse 97 95 Oximetry 09/11/20 09/11/20 09/11/20 03:46 04:00 04:03 Temperature Pulse Rate 94 H 91 H 88 Pulse Rate [ 91 H From Monitor] Respiratory 22 22 Rate Blood Pressure 122/54 120/63 120/63 O2 Sat by Pulse 95 94 96 Oximetry 09/11/20 09/11/2009/11/21 04:15 04:30 04:45 Temperature Pulse Rate 85 85 94 H Pulse Rate [ From Monitor] Respiratory 23 22 21 Rate Blood Pressure 124/58 114/53 111/55 O2 Sat by Pulse 93 93 93 Oximetry 09/11/20 09/11/20 09/11/20 05:00 05:15 05:30 Temperature Pulse Rate 84 85 87 Pulse Rate [ From Monitor] Respiratory 22 22 22 Rate Blood Pressure 112/51 114/51 118/49 O2 Sat by Pulse 93 95 95 Oximetry 09/11/20 09/11/20 09/11/20 05:45 06:00 06:15 Temperature Pulse Rate 95 H 83 81 Pulse Rate [ From Monitor] Respiratory 22 22 22 Rate Blood Pressure 121/49 119/52 117/51 O2 Sat by Pulse 95 95 94 Oximetry 09/11/20 09/11/20 09/11/20 06:30 06:45 07:01 Temperature Pulse Rate 86 99 H 95 H Pulse Rate [ From Monitor] Respiratory 22 22 22 Rate Blood Pressure 112/58 120/55 136/61 O2 Sat by Pulse 94 94 91 Oximetry 09/11/20 09/11/20 09/11/20 07:15 07:30 07:35 Temperature Pulse Rate 92 H 88 81 Pulse Rate [ From Monitor] Respiratory 22 22 Rate Blood Pressure 126/54 111/51 117/51 O2 Sat by Pulse 94 95 94 Oximetry 09/11/20 09/11/20 09/11/20 07:45 08:00 08:15 Temperature 98.3 F Pulse Rate 93 H 89 96 H Pulse Rate [ From Monitor] Respiratory 22 22 21 Rate Blood Pressure 119/49 125/51 130/66 O2 Sat by Pulse 95 95 Oximetry 09/11/20 09/11/20 09/11/20 08:31 08:45 09:00 Temperature Pulse Rate 87 85 91 H Pulse Rate [ From Monitor] Respiratory 22 22 20 Rate Blood Pressure 144/57 127/60 115/54 O2 Sat by Pulse 95 95 95 Oximetry 09/11/20 09/11/20 09/11/20 09:15 09:30 09:45 Temperature Pulse Rate 90 91 H 83 Pulse Rate [ From Monitor] Respiratory 21 22 22 Rate Blood Pressure 120/63 130/54 127/55 O2 Sat by Pulse 95 96 96 Oximetry 09/11/20 09/11/2021 10:00 10:13 10:15 Temperature Pulse Rate 85 83 81 Pulse Rate [ From Monitor] Respiratory 22 22 Rate Blood Pressure 124/52 124/52 120/55 O2 Sat by Pulse 96 96 Oximetry 09/11/20 09/11/20 09/11/20 10:30 10:45 11:01 Temperature Pulse Rate 87 88 77 Pulse Rate [ From Monitor] Respiratory 22 22 22 Rate Blood Pressure 136/61 136/61 115/59 O2 Sat by Pulse 95 96 97 Oximetry 09/11/20 09/11/20 09/11/20 11:15 11:30 11:40 Temperature Pulse Rate 72 74 85 Pulse Rate [ From Monitor] Respiratory 22 21 Rate Blood Pressure 117/54 109/52 124/52 O2 Sat by Pulse 96 96 96 Oximetry 09/11/20 09/11/20 11:45 12:00 Temperature 98.3 F Pulse Rate 73 71 Pulse Rate [ From Monitor] Respiratory 22 22 Rate Blood Pressure 117/52 128/53 O2 Sat by Pulse 94 96 Oximetry Constitutional: no acute distress, other (elderly obese male with mildly increased respiratory effort at rest on MVS) Eyes: non-icteric ENT: oropharynx moist, other (ETT 24 cm MONICA) Neck: supple, no lymphadenopathy, no JVD Effort: mildly labored Ascultation: Bilateral: diminished breath sounds, rhonchi Percussion: Bilateral: not dull Cardiovascular: regular rate and rhythm Gastrointestinal: normoactive bowel sounds, soft, non-tender, non-distended (protuberant) Integumentary: normal (in areas i examined; please see [facility] notes for full description) Extremities: no cyanosis, pink and warm, pulses normal, no ischemia or petechiae Neurologic: non-focal exam (grossly), pupils equal and round, other (lethargic) Psychiatric: other (unable to assess) CBC and BMP: 09/12/20 06:01 09/12/20 06:01 ABG, PT/INR, D-dimer: ABG ABG pH 7.418 (7.320-7.450) 09/11/20 04:55 POC ABG pCO2 49.3 mmHg (32.0-48.0) H 09/11/20 04:55 ABG pCO2 29.5 mm Hg 09/06/20 04:15 POC ABG pO2 78.2 mmHg (83-108) L 09/11/20 04:55 ABG pO2 184.9 mm Hg (80.0-90.0) H 09/06/20 04:15 POC ABG HCO3 31.1 09/11/20 04:55 ABG O2 Saturation 99.2 % (95.0-99.0) H 09/06/20 04:15 PT/INR, D-dimer PT 15.5 Sec. (12.2-14.9) H 09/02/20 15:55 INR 1.23 (0.87-1.13) H 09/02/20 15:55 D-Dimer 1449.12 ng/mlDDU (0-234) H 09/08/20 19:15 Abnormal lab findings: Abnormal Labs 08/15/20 08/15/20 08/15/20 08:49 10:40 10:40 WBC RBC 2.96 L Hgb 9.0 L Hct 25.8 L MCV MCH MCHC 35 H RDW 16.2 H Lymph % (Auto) [place] % (Auto) Eos % (Auto) Lymph # (Auto) Seg Neutrophils % Seg Neutrophils # PT INR APTT D-Dimer Heparin Anti-Xa Level ABG pH POC ABG pCO2 POC ABG pO2 ABG pO2 ABG HCO3 ABG O2 Saturation ABG Base Excess ABG Hemoglobin ABG Oxyhemoglobin ABG Sodium ABG Potassium ABG Chloride ABG Glucose Carboxyhemoglobin Sodium Potassium Chloride Carbon Dioxide BUN Creatinine 0.7 L Glucose 188 H POC Glucose 212 H Calcium 8.3 L Magnesium Ferritin AST Alkaline Phosphatase Lactate Dehydrogenase C-Reactive Protein Total Protein Albumin Arterial Blood Glucose Arterial Blood Ionized Calcium Urine WBC (Auto) Coronavirus (PCR) 08/15/20 08/15/20 08/16/20 14:00 Unknown 04:43 WBC RBC 3.28 L Hgb 9.6 L Hct 29.3 L MCV MCH MCHC RDW 16.6 H Lymph % (Auto) [place] % (Auto) Eos % (Auto) 4.9 H Lymph # (Auto) Seg Neutrophils % Seg Neutrophils # PT INR APTT D-Dimer Heparin Anti-Xa Level ABG pH POC ABG pCO2 POC ABG pO2 ABG pO2 ABG HCO3 ABG O2 Saturation ABG Base Excess ABG Hemoglobin ABG Oxyhemoglobin ABG Sodium ABG Potassium ABG Chloride ABG Glucose Carboxyhemoglobin Sodium Potassium Chloride Carbon Dioxide BUN 8 L Creatinine 0.6 L Glucose 115 H POC Glucose Calcium Magnesium Ferritin AST Alkaline Phosphatase Lactate Dehydrogenase C-Reactive Protein Total Protein Albumin Arterial Blood Glucose Arterial Blood Ionized Calcium Urine WBC (Auto) 31.0 H Coronavirus (PCR) 08/16/20 08/18/20 08/20/20 04:43 15:17 07:12 WBC RBC Hgb 9.1 L Hct 27.2 L MCV MCH MCHC RDW Lymph % (Auto) [place] % (Auto) Eos % (Auto) Lymph # (Auto) Seg Neutrophils % Seg Neutrophils # PT INR APTT D-Dimer Heparin Anti-Xa Level ABG pH POC ABG pCO2 POC ABG pO2 ABG pO2 ABG HCO3 ABG O2 Saturation ABG Base Excess ABG Hemoglobin ABG Oxyhemoglobin ABG Sodium ABG Potassium ABG Chloride ABG Glucose Carboxyhemoglobin Sodium 135 L Potassium Chloride 97.5 L Carbon Dioxide BUN Creatinine 0.5 L Glucose 153 H 135 H POC Glucose Calcium Magnesium Ferritin AST Alkaline Phosphatase Lactate Dehydrogenase C-Reactive Protein Total Protein Albumin Arterial Blood Glucose Arterial Blood Ionized Calcium Urine WBC (Auto) Coronavirus (PCR) 08/20/20 08/20/20 08/20/20 07:12 07:12 08:07 WBC RBC Hgb Hct MCV MCH MCHC RDW Lymph % (Auto) [place] % (Auto) Eos % (Auto) Lymph # (Auto) Seg Neutrophils % Seg Neutrophils # PT INR 1.15 H APTT D-Dimer Heparin Anti-Xa Level ABG pH POC ABG pCO2 POC ABG pO2 ABG pO2 ABG HCO3 ABG O2 Saturation ABG Base Excess ABG Hemoglobin ABG Oxyhemoglobin ABG Sodium ABG Potassium ABG Chloride ABG Glucose Carboxyhemoglobin Sodium Potassium Chloride Carbon Dioxide BUN Creatinine Glucose 113 H POC Glucose 108 H Calcium Magnesium Ferritin AST Alkaline Phosphatase Lactate Dehydrogenase C-Reactive Protein Total Protein Albumin Arterial Blood Glucose Arterial Blood Ionized Calcium Urine WBC (Auto) Coronavirus (PCR) 08/20/20 08/20/20 08/21/20 16:32 22:34 07:42 WBC RBC Hgb Hct MCV MCH MCHC RDW Lymph % (Auto) [place] % (Auto) Eos % (Auto) Lymph # (Auto) Seg Neutrophils % Seg Neutrophils # PT INR APTT D-Dimer Heparin Anti-Xa Level ABG pH POC ABG pCO2 POC ABG pO2 ABG pO2 ABG HCO3 ABG O2 Saturation ABG Base Excess ABG Hemoglobin ABG Oxyhemoglobin ABG Sodium ABG Potassium ABG Chloride ABG Glucose Carboxyhemoglobin Sodium Potassium Chloride Carbon Dioxide BUN Creatinine Glucose POC Glucose 107 H 139 H 115 H Calcium Magnesium Ferritin AST Alkaline Phosphatase Lactate Dehydrogenase C-Reactive Protein Total Protein Albumin Arterial Blood Glucose Arterial Blood Ionized Calcium Urine WBC (Auto) Coronavirus (PCR) 08/21/20 08/21/20 08/21/20 08:14 08:14 11:31 WBC RBC 3.08 L Hgb 8.9 L Hct 27.0 L MCV MCH MCHC RDW 16.7 H Lymph % (Auto) [place] % (Auto) Eos % (Auto) Lymph # (Auto) Seg Neutrophils % Seg Neutrophils # PT INR APTT D-Dimer Heparin Anti-Xa Level ABG pH POC ABG pCO2 POC ABG pO2 ABG pO2 ABG HCO3 ABG O2 Saturation ABG Base Excess ABG Hemoglobin ABG Oxyhemoglobin ABG Sodium ABG Potassium ABG Chloride ABG Glucose Carboxyhemoglobin Sodium 136 L Potassium Chloride Carbon Dioxide BUN Creatinine Glucose 129 H POC Glucose 132 H Calcium Magnesium Ferritin AST Alkaline Phosphatase Lactate Dehydrogenase C-Reactive Protein Total Protein Albumin Arterial Blood Glucose Arterial Blood Ionized Calcium Urine WBC (Auto) Coronavirus (PCR) 08/24/20 08/25/20 08/26/20 10:57 18:39 11:57 WBC RBC Hgb Hct MCV MCH MCHC RDW Lymph % (Auto) [place] % (Auto) Eos % (Auto) Lymph # (Auto) Seg Neutrophils % Seg Neutrophils # PT INR APTT D-Dimer Heparin Anti-Xa Level ABG pH POC ABG pCO2 POC ABG pO2 ABG pO2 ABG HCO3 ABG O2 Saturation ABG Base Excess ABG Hemoglobin ABG Oxyhemoglobin ABG Sodium ABG Potassium ABG Chloride ABG Glucose Carboxyhemoglobin Sodium Potassium Chloride Carbon Dioxide BUN Creatinine Glucose POC Glucose 126 H 120 H 127 H Calcium Magnesium Ferritin AST Alkaline Phosphatase Lactate Dehydrogenase C-Reactive Protein Total Protein Albumin Arterial Blood Glucose Arterial Blood Ionized Calcium Urine WBC (Auto) Coronavirus (PCR) 08/26/20 08/26/20 08/28/20 18:44 23:31 19:34 WBC RBC 3.09 L Hgb 8.7 L Hct 25.5 L MCV 82 L MCH MCHC RDW 17.1 H Lymph % (Auto) [place] % (Auto) 9.1 H Eos % (Auto) Lymph # (Auto) 0.8 L Seg Neutrophils % 71.7 H Seg Neutrophils # PT INR APTT D-Dimer Heparin Anti-Xa Level ABG pH POC ABG pCO2 POC ABG pO2 ABG pO2 ABG HCO3 ABG O2 Saturation ABG Base Excess ABG Hemoglobin ABG Oxyhemoglobin ABG Sodium ABG Potassium ABG Chloride ABG Glucose Carboxyhemoglobin Sodium Potassium Chloride Carbon Dioxide BUN Creatinine Glucose POC Glucose 125 H 115 H Calcium Magnesium Ferritin AST Alkaline Phosphatase Lactate Dehydrogenase C-Reactive Protein Total Protein Albumin Arterial Blood Glucose Arterial Blood Ionized Calcium Urine WBC (Auto) Coronavirus (PCR) 08/28/20 08/28/20 08/29/20 19:34 22:16 08:06 WBC RBC Hgb Hct MCV MCH MCHC RDW Lymph % (Auto) [place] % (Auto) Eos % (Auto) Lymph # (Auto) Seg Neutrophils % Seg Neutrophils # PT INR APTT D-Dimer Heparin Anti-Xa Level ABG pH POC ABG pCO2 POC ABG pO2 ABG pO2 ABG HCO3 ABG O2 Saturation ABG Base Excess ABG Hemoglobin ABG Oxyhemoglobin ABG Sodium ABG Potassium ABG Chloride ABG Glucose Carboxyhemoglobin Sodium 130 L Potassium 2.6 L* Chloride 96.4 L Carbon Dioxide BUN Creatinine Glucose 119 H POC Glucose 110 H 119 H Calcium 7.8 L Magnesium Ferritin AST Alkaline Phosphatase Lactate Dehydrogenase C-Reactive Protein Total Protein Albumin Arterial Blood Glucose Arterial Blood Ionized Calcium Urine WBC (Auto) Coronavirus (PCR) 08/29/20 08/29/20 08/29/20 12:13 16:37 17:38 WBC RBC Hgb Hct MCV MCH MCHC RDW Lymph % (Auto) [place] % (Auto) Eos % (Auto) Lymph # (Auto) Seg Neutrophils % Seg Neutrophils # PT INR APTT D-Dimer Heparin Anti-Xa Level ABG pH POC ABG pCO2 POC ABG pO2 ABG pO2 ABG HCO3 ABG O2 Saturation ABG Base Excess ABG Hemoglobin ABG Oxyhemoglobin ABG Sodium ABG Potassium ABG Chloride ABG Glucose Carboxyhemoglobin Sodium 133 L Potassium 3.0 L Chloride 97.9 L Carbon Dioxide 21 L BUN Creatinine Glucose 111 H POC Glucose 109 H 106 H Calcium 8.3 L Magnesium 1.30 L Ferritin AST Alkaline Phosphatase Lactate Dehydrogenase C-Reactive Protein Total Protein Albumin Arterial Blood Glucose Arterial Blood Ionized Calcium Urine WBC (Auto) Coronavirus (PCR) 08/29/20 08/29/20 08/29/20 19:21 19:21 19:21 WBC RBC Hgb Hct MCV MCH MCHC RDW Lymph % (Auto) [place] % (Auto) Eos % (Auto) Lymph # (Auto) Seg Neutrophils % Seg Neutrophils # PT INR APTT D-Dimer 688.12 H Heparin Anti-Xa Level ABG pH POC ABG pCO2 POC ABG pO2 ABG pO2 ABG HCO3 ABG O2 Saturation ABG Base Excess ABG Hemoglobin ABG Oxyhemoglobin ABG Sodium ABG Potassium ABG Chloride ABG Glucose Carboxyhemoglobin Sodium Potassium 3.1 L Chloride Carbon Dioxide BUN Creatinine Glucose POC Glucose Calcium Magnesium 1.50 L Ferritin 1476.0 H AST Alkaline Phosphatase Lactate Dehydrogenase C-Reactive Protein Total Protein Albumin Arterial Blood Glucose Arterial Blood Ionized Calcium Urine WBC (Auto) Coronavirus (PCR) 08/29/20 08/29/20 08/31/20 19:21 Unknown 04:30 WBC RBC 3.12 L Hgb 9.1 L Hct 25.7 L MCV 83 L MCH MCHC 35 H RDW 17.4 H Lymph % (Auto) [place] % (Auto) 9.4 H Eos % (Auto) Lymph # (Auto) Seg Neutrophils % Seg Neutrophils # PT INR APTT D-Dimer Heparin Anti-Xa Level ABG pH POC ABG pCO2 POC ABG pO2 ABG pO2 ABG HCO3 ABG O2 Saturation ABG Base Excess ABG Hemoglobin ABG Oxyhemoglobin ABG Sodium ABG Potassium ABG Chloride ABG Glucose Carboxyhemoglobin Sodium Potassium Chloride Carbon Dioxide BUN Creatinine Glucose POC Glucose Calcium Magnesium Ferritin AST Alkaline Phosphatase Lactate Dehydrogenase 373 H C-Reactive Protein 18.30 H Total Protein Albumin Arterial Blood Glucose Arterial Blood Ionized Calcium Urine WBC (Auto) Coronavirus (PCR) Positive A 08/31/20 09/02/20 09/02/20 04:30 06:28 06:49 WBC RBC Hgb Hct MCV MCH MCHC RDW Lymph % (Auto) [place] % (Auto) Eos % (Auto) Lymph # (Auto) Seg Neutrophils % Seg Neutrophils # PT INR APTT D-Dimer Heparin Anti-Xa Level ABG pH POC ABG pCO2 26.2 L POC ABG pO2 82.2 L ABG pO2 ABG HCO3 ABG O2 Saturation ABG Base Excess ABG Hemoglobin 10.1 L ABG Oxyhemoglobin ABG Sodium 134.5 L ABG Potassium 3.2 L ABG Chloride ABG Glucose 127 H Carboxyhemoglobin 0.3 L Sodium 134 L Potassium 3.4 L Chloride Carbon Dioxide BUN Creatinine Glucose 129 H POC Glucose 109 H Calcium 8.0 L Magnesium Ferritin AST Alkaline Phosphatase Lactate Dehydrogenase C-Reactive Protein Total Protein Albumin Arterial Blood Glucose 127 H Arterial Blood Ionized Calcium 4.5 L Urine WBC (Auto) Coronavirus (PCR) 09/02/20 09/02/20 09/02/20 11:32 15:55 15:55 WBC RBC Hgb Hct MCV MCH MCHC RDW Lymph % (Auto) [place] % (Auto) Eos % (Auto) Lymph # (Auto) Seg Neutrophils % Seg Neutrophils # PT 15.5 H INR 1.23 H APTT 50.2 H D-Dimer 2186.40 H Heparin Anti-Xa Level ABG pH POC ABG pCO2 POC ABG pO2 ABG pO2 ABG HCO3 ABG O2 Saturation ABG Base Excess ABG Hemoglobin ABG Oxyhemoglobin ABG Sodium ABG Potassium ABG Chloride ABG Glucose Carboxyhemoglobin Sodium Potassium Chloride Carbon Dioxide 21 L BUN 30 H Creatinine 1.6 H Glucose 125 H POC Glucose 112 H Calcium 7.8 L Magnesium Ferritin AST Alkaline Phosphatase Lactate Dehydrogenase C-Reactive Protein Total Protein Albumin Arterial Blood Glucose Arterial Blood Ionized Calcium Urine WBC (Auto) Coronavirus (PCR) 09/02/20 09/02/20 09/02/20 15:55 15:55 17:34 WBC 11.2 H RBC 2.94 L Hgb 8.1 L Hct 24.3 L MCV 83 L MCH 27 L MCHC RDW 17.7 H Lymph % (Auto) 12.7 L [place] % (Auto) Eos % (Auto) Lymph # (Auto) Seg Neutrophils % 82.5 H Seg Neutrophils # 9.3 H PT INR APTT D-Dimer Heparin Anti-Xa Level ABG pH POC ABG pCO2 POC ABG pO2 ABG pO2 ABG HCO3 ABG O2 Saturation ABG Base Excess ABG Hemoglobin ABG Oxyhemoglobin ABG Sodium ABG Potassium ABG Chloride ABG Glucose Carboxyhemoglobin Sodium Potassium Chloride Carbon Dioxide BUN Creatinine Glucose POC Glucose 127 H Calcium Magnesium Ferritin 1892.0 H AST Alkaline Phosphatase Lactate Dehydrogenase C-Reactive Protein Total Protein Albumin Arterial Blood Glucose Arterial Blood Ionized Calcium Urine WBC (Auto) Coronavirus (PCR) 09/03/20 09/03/2021 07:13 16:40 23:40 WBC RBC Hgb Hct MCV MCH MCHC RDW Lymph % (Auto) [place] % (Auto) Eos % (Auto) Lymph # (Auto) Seg Neutrophils % Seg Neutrophils # PT INR APTT D-Dimer Heparin Anti-Xa Level 0.88 H ABG pH POC ABG pCO2 POC ABG pO2 ABG pO2 ABG HCO3 ABG O2 Saturation ABG Base Excess ABG Hemoglobin ABG Oxyhemoglobin ABG Sodium ABG Potassium ABG Chloride ABG Glucose Carboxyhemoglobin Sodium Potassium 3.2 L Chloride 109.7 H Carbon Dioxide BUN 24 H Creatinine Glucose 142 H POC Glucose 220 H Calcium 8.2 L Magnesium Ferritin AST 75 H Alkaline Phosphatase Lactate Dehydrogenase C-Reactive Protein Total Protein 5.8 L Albumin 2.7 L Arterial Blood Glucose Arterial Blood Ionized Calcium Urine WBC (Auto) Coronavirus (PCR) 09/04/20 09/04/20 09/04/20 07:25 07:25 11:57 WBC RBC Hgb 9.0 L Hct 27.9 L MCV MCH MCHC RDW Lymph % (Auto) [place] % (Auto) Eos % (Auto) Lymph # (Auto) Seg Neutrophils % Seg Neutrophils # PT INR APTT D-Dimer Heparin Anti-Xa Level ABG pH POC ABG pCO2 POC ABG pO2 ABG pO2 ABG HCO3 ABG O2 Saturation ABG Base Excess ABG Hemoglobin ABG Oxyhemoglobin ABG Sodium ABG Potassium ABG Chloride ABG Glucose Carboxyhemoglobin Sodium 148 H Potassium Chloride 116.9 H Carbon Dioxide BUN Creatinine Glucose 129 H POC Glucose 113 H Calcium Magnesium Ferritin AST 93 H Alkaline Phosphatase 134 H Lactate Dehydrogenase C-Reactive Protein Total Protein 6.0 L Albumin 2.6 L Arterial Blood Glucose Arterial Blood Ionized Calcium Urine WBC (Auto) Coronavirus (PCR) 09/05/20 09/05/20 09/05/20 06:24 07:17 13:38 WBC RBC Hgb Hct MCV MCH MCHC RDW Lymph % (Auto) [place] % (Auto) Eos % (Auto) Lymph # (Auto) Seg Neutrophils % Seg Neutrophils # PT INR APTT D-Dimer Heparin Anti-Xa Level ABG pH 7.218 L POC ABG pCO2 66.0 H POC ABG pO2 45.8 L 79.1 L ABG pO2 ABG HCO3 ABG O2 Saturation ABG Base Excess ABG Hemoglobin 10.7 L 9.6 L ABG Oxyhemoglobin 74.5 L ABG Sodium 146.5 H 145.4 H ABG Potassium ABG Chloride 115.0 H 117.0 H ABG Glucose 146 H 106 H Carboxyhemoglobin 0.1 L 0 L Sodium 152 H Potassium Chloride 115.9 H Carbon Dioxide BUN Creatinine Glucose 134 H POC Glucose Calcium Magnesium Ferritin AST 69 H Alkaline Phosphatase 168 H Lactate Dehydrogenase C-Reactive Protein Total Protein 5.4 L Albumin 2.7 L Arterial Blood Glucose 146 H 106 H Arterial Blood Ionized Calcium Urine WBC (Auto) Coronavirus (PCR) 09/05/20 09/06/20 09/06/20 17:27 04:15 07:29 WBC RBC Hgb 7.8 L Hct 24.0 L MCV MCH MCHC RDW Lymph % (Auto) [place] % (Auto) Eos % (Auto) Lymph # (Auto) Seg Neutrophils % Seg Neutrophils # PT INR APTT D-Dimer Heparin Anti-Xa Level ABG pH POC ABG pCO2 POC ABG pO2 ABG pO2 184.9 H ABG HCO3 19.9 L ABG O2 Saturation 99.2 H ABG Base Excess -3.5 L ABG Hemoglobin 8.9 L ABG Oxyhemoglobin ABG Sodium ABG Potassium ABG Chloride ABG Glucose Carboxyhemoglobin Sodium Potassium Chloride Carbon Dioxide BUN Creatinine Glucose POC Glucose 124 H Calcium Magnesium Ferritin AST Alkaline Phosphatase Lactate Dehydrogenase C-Reactive Protein Total Protein Albumin Arterial Blood Glucose Arterial Blood Ionized Calcium Urine WBC (Auto) Coronavirus (PCR) 09/06/20 09/06/20 09/06/20 07:29 07:29 12:02 WBC 11.3 H RBC 2.83 L Hgb 7.8 L Hct 24.3 L MCV MCH MCHC RDW 17.7 H Lymph % (Auto) [place] % (Auto) Eos % (Auto) Lymph # (Auto) Seg Neutrophils % Seg Neutrophils # PT INR APTT D-Dimer Heparin Anti-Xa Level ABG pH POC ABG pCO2 POC ABG pO2 ABG pO2 ABG HCO3 ABG O2 Saturation ABG Base Excess ABG Hemoglobin ABG Oxyhemoglobin ABG Sodium ABG Potassium ABG Chloride ABG Glucose Carboxyhemoglobin Sodium 151 H Potassium Chloride 117.6 H Carbon Dioxide BUN 24 H Creatinine Glucose 159 H POC Glucose 158 H Calcium 7.7 L Magnesium Ferritin AST Alkaline Phosphatase Lactate Dehydrogenase C-Reactive Protein Total Protein Albumin Arterial Blood Glucose Arterial Blood Ionized Calcium Urine WBC (Auto) Coronavirus (PCR) 09/07/20 09/08/20 09/08/20 05:21 04:31 04:35 WBC RBC Hgb 7.4 L Hct 22.7 L MCV MCH MCHC RDW Lymph % (Auto) [place] % (Auto) Eos % (Auto) Lymph # (Auto) Seg Neutrophils % Seg Neutrophils # PT INR APTT D-Dimer Heparin Anti-Xa Level ABG pH POC ABG pCO2 49.1 H POC ABG pO2 46.0 L 58.6 L ABG pO2 ABG HCO3 ABG O2 Saturation ABG Base Excess ABG Hemoglobin 8.6 L 7.8 L ABG Oxyhemoglobin 87.7 L ABG Sodium 145.1 H ABG Potassium ABG Chloride 116.0 H 116.0 H ABG Glucose 238 H 255 H Carboxyhemoglobin Sodium Potassium Chloride Carbon Dioxide BUN Creatinine Glucose POC Glucose Calcium Magnesium Ferritin AST Alkaline Phosphatase Lactate Dehydrogenase C-Reactive Protein Total Protein Albumin Arterial Blood Glucose 238 H 255 H Arterial Blood Ionized Calcium Urine WBC (Auto) Coronavirus (PCR) 09/08/20 09/08/20 09/08/20 12:45 17:26 19:15 WBC RBC Hgb Hct MCV MCH MCHC RDW Lymph % (Auto) [place] % (Auto) Eos % (Auto) Lymph # (Auto) Seg Neutrophils % Seg Neutrophils # PT INR APTT D-Dimer Heparin Anti-Xa Level ABG pH POC ABG pCO2 POC ABG pO2 ABG pO2 ABG HCO3 ABG O2 Saturation ABG Base Excess ABG Hemoglobin ABG Oxyhemoglobin ABG Sodium ABG Potassium ABG Chloride ABG Glucose Carboxyhemoglobin Sodium Potassium Chloride Carbon Dioxide BUN Creatinine Glucose POC Glucose 270 H 294 H Calcium Magnesium Ferritin AST Alkaline Phosphatase Lactate Dehydrogenase C-Reactive Protein 4.90 H Total Protein Albumin Arterial Blood Glucose Arterial Blood Ionized Calcium Urine WBC (Auto) Coronavirus (PCR) 09/08/20 09/08/20 09/08/20 19:15 19:15 19:15 WBC RBC Hgb Hct MCV MCH MCHC RDW Lymph % (Auto) [place] % (Auto) Eos % (Auto) Lymph # (Auto) Seg Neutrophils % Seg Neutrophils # PT INR APTT D-Dimer 1449.12 H Heparin Anti-Xa Level ABG pH POC ABG pCO2 POC ABG pO2 ABG pO2 ABG HCO3 ABG O2 Saturation ABG Base Excess ABG Hemoglobin ABG Oxyhemoglobin ABG Sodium ABG Potassium ABG Chloride ABG Glucose Carboxyhemoglobin Sodium Potassium Chloride Carbon Dioxide BUN Creatinine Glucose POC Glucose Calcium Magnesium Ferritin 1485.0 H AST Alkaline Phosphatase Lactate Dehydrogenase 541 H C-Reactive Protein Total Protein Albumin Arterial Blood Glucose Arterial Blood Ionized Calcium Urine WBC (Auto) Coronavirus (PCR) 09/09/20 09/09/20 09/09/20 04:40 12:15 17:36 WBC RBC Hgb Hct MCV MCH MCHC RDW Lymph % (Auto) [place] % (Auto) Eos % (Auto) Lymph # (Auto) Seg Neutrophils % Seg Neutrophils # PT INR APTT D-Dimer Heparin Anti-Xa Level ABG pH POC ABG pCO2 POC ABG pO2 75.1 L ABG pO2 ABG HCO3 ABG O2 Saturation ABG Base Excess ABG Hemoglobin 10.7 L ABG Oxyhemoglobin 93.9 L ABG Sodium 146.7 H ABG Potassium ABG Chloride 113.0 H ABG Glucose 420 H Carboxyhemoglobin 0.2 L Sodium Potassium Chloride Carbon Dioxide BUN Creatinine Glucose POC Glucose 281 H 368 H Calcium Magnesium Ferritin AST Alkaline Phosphatase Lactate Dehydrogenase C-Reactive Protein Total Protein Albumin Arterial Blood Glucose 420 H Arterial Blood Ionized Calcium Urine WBC (Auto) Coronavirus (PCR) 09/10/20 09/10/20 09/10/20 04:45 07:15 11:51 WBC RBC Hgb 7.7 L Hct 24.8 L MCV MCH MCHC RDW Lymph % (Auto) [place] % (Auto) Eos % (Auto) Lymph # (Auto) Seg Neutrophils % Seg Neutrophils # PT INR APTT D-Dimer Heparin Anti-Xa Level ABG pH POC ABG pCO2 POC ABG pO2 ABG pO2 ABG HCO3 ABG O2 Saturation ABG Base Excess ABG Hemoglobin 8.0 L ABG Oxyhemoglobin ABG Sodium 150.8 H ABG Potassium ABG Chloride 117.0 H ABG Glucose 461 H Carboxyhemoglobin Sodium Potassium Chloride Carbon Dioxide BUN Creatinine Glucose POC Glucose 358 H Calcium Magnesium Ferritin AST Alkaline Phosphatase Lactate Dehydrogenase C-Reactive Protein Total Protein Albumin Arterial Blood Glucose 461 H Arterial Blood Ionized Calcium Urine WBC (Auto) Coronavirus (PCR) 09/10/20 09/10/20 09/11/20 17:28 23:29 04:55 WBC RBC Hgb Hct MCV MCH MCHC RDW Lymph % (Auto) [place] % (Auto) Eos % (Auto) Lymph # (Auto) Seg Neutrophils % Seg Neutrophils # PT INR APTT D-Dimer Heparin Anti-Xa Level ABG pH POC ABG pCO2 49.3 H POC ABG pO2 78.2 L ABG pO2 ABG HCO3 ABG O2 Saturation ABG Base Excess ABG Hemoglobin 8.2 L ABG Oxyhemoglobin ABG Sodium 155.0 H ABG Potassium ABG Chloride 120.0 H ABG Glucose 515 H Carboxyhemoglobin Sodium Potassium Chloride Carbon Dioxide BUN Creatinine Glucose POC Glucose 434 H 384 H Calcium Magnesium Ferritin AST Alkaline Phosphatase Lactate Dehydrogenase C-Reactive Protein Total Protein Albumin Arterial Blood Glucose 515 H Arterial Blood Ionized Calcium Urine WBC (Auto) Coronavirus (PCR) 09/11/20 09/11/20 09/11/20 05:03 06:10 06:10 WBC 11.1 H RBC 2.55 L Hgb 7.1 L Hct 23.4 L MCV MCH MCHC 30 L RDW 19.6 H Lymph % (Auto) [place] % (Auto) Eos % (Auto) Lymph # (Auto) Seg Neutrophils % Seg Neutrophils # PT INR APTT D-Dimer Heparin Anti-Xa Level ABG pH POC ABG pCO2 POC ABG pO2 ABG pO2 ABG HCO3 ABG O2 Saturation ABG Base Excess ABG Hemoglobin ABG Oxyhemoglobin ABG Sodium ABG Potassium ABG Chloride ABG Glucose Carboxyhemoglobin Sodium 159 H D Potassium Chloride 121.9 H Carbon Dioxide BUN 59 H Creatinine Glucose 530 H* POC Glucose 306 H Calcium 8.2 L Magnesium Ferritin AST Alkaline Phosphatase Lactate Dehydrogenase C-Reactive Protein Total Protein Albumin Arterial Blood Glucose Arterial Blood Ionized Calcium Urine WBC (Auto) Coronavirus (PCR) 09/11/20 09/11/20 08:12 12:13 WBC RBC Hgb Hct MCV MCH MCHC RDW Lymph % (Auto) [place] % (Auto) Eos % (Auto) Lymph # (Auto) Seg Neutrophils % Seg Neutrophils # PT INR APTT D-Dimer Heparin Anti-Xa Level ABG pH POC ABG pCO2 POC ABG pO2 ABG pO2 ABG HCO3 ABG O2 Saturation ABG Base Excess ABG Hemoglobin ABG Oxyhemoglobin ABG Sodium ABG Potassium ABG Chloride ABG Glucose Carboxyhemoglobin Sodium Potassium Chloride Carbon Dioxide BUN Creatinine Glucose 526 H* POC Glucose 374 H Calcium Magnesium Ferritin AST Alkaline Phosphatase Lactate Dehydrogenase C-Reactive Protein Total Protein Albumin Arterial Blood Glucose Arterial Blood Ionized Calcium Urine WBC (Auto) Coronavirus (PCR) Chest x-ray: pending Allied health notes reviewed: nursing
[2020-09-11] MEDS ORDERED: SODIUM CHLORIDE 0.45% 1,000 ML IV SCH (13:00)
[2020-09-11] MEDS: SODIUM CHLORIDE 0.45% 1000 ML 1,000 ML IV SCH (13:19)
--- NOTE | 2020-09-11 13:50 | Event Note ---
Date: 09/11/20 Requested by wound care to come to bedside to evaluate left forefoot with wound VAC. The lateral aspect of the Integra graft has partially incorporated, but the medial aspect of the graft in the midportion of the graft is not incorporated. The bones of the TMA are visualized with minimal tissue around them. The residual foot is warm. Patient will ultimately require further debridement/TMA resection with repeat attempt with Integra graft versus BKA. Unfortunately, he is a candidate for neither of these procedures at this time as he is critically ill with coronavirus. Recommend continuing wound VAC placement as this has not worsened the situation, until patient is extubated and no longer critically ill. At that time, further operative procedures can be performed.
--- NOTE | 2020-09-11 16:03 | Progress Note ---
Assessment and Plan Assessment and plan: 64 YO Male HD #26 with PVD, Coronavirus Infection, Acute Respiratory Failure, Sepsis, Pneumonia, Toxic Encephalopathy, Necrosis of Surgical wound. Patient resting in bed. No acute decompensation overnight. No improvement overnight. Patient remains critically ill. Patient prognosis is poor to guarded. 09/10: Significant elevated blood sugar. Patient with labile blood sugar issues. Aspiration precautions continue vent weaning per allergy and immunology specialist. Continue antibiotics management. Patient with noted hypernatremia we will continue to monitor sodium levels. Also with anemia of chronic disease we will monitor H&H closely. 09/11; Patient remains critically ill, continue wound care, monitor and adjust insulin for better control. (1) severe sepsis with shock Current Visit: Yes Status: Acute Plan to address problem: Sepsis protocol: CBC, CMP, IV fluid resuscitation therapy as clinically indicated, IV antibiotic therapy, monitor urine output every shift, maintain mean arterial blood pressure greater than or equal to 65, (2) Acute hypoxemic respiratory failure Current Visit: Yes Status: Acute Plan to address problem: Wean vent as tolerated, daily ABG, spontaneous breathing trial daily, chest x- ray, sedation holiday, supportive care. (3) Necrosis of surgical wound Current Visit: Yes Status: Acute Plan to address problem: Surgery team consulted. pain control, supportive care. Further care as per vascular surgery team. (4) CHF (congestive heart failure) Current Visit: No Status: Chronic Qualifiers: Heart failure chronicity: chronic Plan to address problem: Strict I/O, monitor urine output every shift, daily weight, monitor fluid balance, afterload reduction, blood pressure control. (5) Hypertension Current Visit: Yes Status: Acute Qualifiers: Hypertension type: essential hypertension Qualified Code(s): I10 - Essential (primary) hypertension Plan to address problem: Monitor blood pressure every shift, continue medical management (6) UTI (urinary tract infection) Current Visit: Yes Status: Acute Qualifiers: Encounter type: initial encounter Plan to address problem: CBC, CMP, urinalysis, IV antibiotic therapy. (7) Coronavirus infection Current Visit: Yes Status: Acute Plan to address problem: Coronavirus protocol: IV antibiotic therapy, IV steroid therapy, supplemental oxygen, vitamin C supplementation, zinc supplementation, (8) peripheral vascular disease (9) DVT prophylaxis Current Visit: Yes Status: Acute Plan to address problem: SCD to bilateral lower extremities while in bed, anticoagulation as per surgical team (9) Toxic metabolic encephalopathy Current Visit: Yes Status: Acute Plan to address problem: Supportive care, treat sepsis, (10) Advance care planning Current Visit: Yes Status: Acute Plan to address problem: Disease education conducted, patient is full code, prognosis discussed, care plan discussed, patient knowledges understanding and agreement with care plan, +30 minutes (10) history of alcohol abuse [11] history of gout [12] left lower extremity/left foot ulcer The high probability of a clinically significant, sudden or life threatening deterioration of the [cardiac, pulmonary, renal, infectious disease] system(s) required my full and direct attention, intervention and personal management. The aggregate critical care time was [65] minutes. This time is in addition to time spent performing reported procedures but includes the following: [x] Data Review and interpretation [x] Patient assessment and monitoring of vital signs [x] Documentation [x] Medication orders and management History Interval history: Patient seen and examined remains on full mechanical ventilation Hospitalist Physical - Physical exam Narrative exam: General appearance: Present: Mild distress on full ventilatory support. Limited exam due to PPE conservation during COVID Pandemic - EENT Eyes: Present: miosis ENT: hearing decreased - Neck Neck: Present: supple - Respiratory Respiratory effort: labored Respiratory: bilateral: diminished, rhonchi - Cardiovascular Rhythm: regular Heart Sounds: Present: S1 & S2 - Extremities Extremity abnormal: edema Peripheral Pulses: abnormal (Capillary refill greater than 3.5 seconds) - Abdominal General gastrointestinal: soft, non-tender, non-distended - Integumentary Integumentary: Present: dressing and wound vac to lower ext - Psychiatric Psychiatric: no appropriate mood/affect, no intact judgment & insight, no memory intact - Neurologic Neurologic: CNII-XII intact, no gait normal - Constitutional Vitals: Temp Pulse Resp BP Pulse Ox 98.3 F 73 22 115/52 98 09/11/20 12:00 09/11/20 15:58 09/11/20 14:30 09/11/20 15:58 09/11/20 15:58 General appearance: Present: no acute distress, well-nourished Results - Labs CBC & Chem 7: 09/11/20 06:10 09/11/20 08:12 Labs: Laboratory Last Values WBC 11.1 K/mm3 (4.5-11.0) H 09/11/20 06:10 RBC 2.55 M/mm3 (3.65-5.03) L 09/11/20 06:10 Hgb 7.1 gm/dl (11.8-15.2) L 09/11/20 06:10 Hct 23.4 % (35.5-45.6) L 09/11/20 06:10 MCV 92 fl (84-94) 09/11/20 06:10 MCH 28 pg (28-32) 09/11/20 06:10 MCHC 30 % (32-34) L 09/11/20 06:10 RDW 19.6 % (13.2-15.2) H 09/11/20 06:10 Plt Count 183 K/mm3 (140-440) 09/11/20 06:10 Lymph % (Auto) 12.7 % (13.4-35.0) L 09/02/20 15:55 [place] % (Auto) 4.5 % (0.0-7.3) 09/02/20 15:55 Eos % (Auto) 0.0 % (0.0-4.3) 09/02/20 15:55 Baso % (Auto) 0.3 % (0.0-1.8) 09/02/20 15:55 Lymph # (Auto) 1.4 K/mm3 (1.2-5.4) 09/02/20 15:55 [place] # (Auto) 0.5 K/mm3 (0.0-0.8) 09/02/20 15:55 Eos # (Auto) 0.0 K/mm3 (0.0-0.4) 09/02/20 15:55 Baso # (Auto) 0.0 K/mm3 (0.0-0.1) 09/02/20 15:55 Seg Neutrophils % 82.5 % (40.0-70.0) H 09/02/20 15:55 Seg Neutrophils # 9.3 K/mm3 (1.8-7.7) H 09/02/20 15:55 PT 15.5 Sec. (12.2-14.9) H 09/02/20 15:55 INR 1.23 (0.87-1.13) H 09/02/20 15:55 APTT 50.2 Sec. (24.2-36.6) H 09/02/20 15:55 D-Dimer 1449.12 ng/mlDDU (0-234) H 09/08/20 19:15 Heparin Anti-Xa Level 0.47 U.I./ml (0.3-0.7) 09/06/20 07:29 ABG pH 7.418 (7.320-7.450) 09/11/20 04:55 POC ABG pCO2 49.3 mmHg (32.0-48.0) H 09/11/20 04:55 ABG pCO2 29.5 mm Hg 09/06/20 04:15 POC ABG pO2 78.2 mmHg (83-108) L 09/11/20 04:55 ABG pO2 184.9 mm Hg (80.0-90.0) H 09/06/20 04:15 POC ABG HCO3 31.1 09/11/20 04:55 ABG HCO3 19.9 mmol/L (20.0-26.0) L 09/06/20 04:15 ABG O2 Saturation 99.2 % (95.0-99.0) H 09/06/20 04:15 ABG O2 Content 12.6 (0.0-44) 09/06/20 04:15 POC ABG Base Excess 5.9 09/11/20 04:55 ABG Base Excess -3.5 mmol/L (-2.0-3.0) L 09/06/20 04:15 ABG Hemoglobin 8.2 (12.0-17.5) L 09/11/20 04:55 ABG Oxyhemoglobin 94.3 (94-98) 09/11/20 04:55 ABG Carboxyhemoglobin 1.2 % (0.0-5.0) 09/06/20 04:15 ABG Methemoglobin 0.3 (0.0-1.5) 09/11/20 04:55 ABG Sodium 155.0 mmol/L (136.0-145.0) H 09/11/20 04:55 ABG Potassium 4.3 mmol/L (3.40-4.50) 09/11/20 04:55 ABG Chloride 120.0 mmol/L (98-107) H 09/11/20 04:55 ABG Glucose 515 mg/dL (65-95) H 09/11/20 04:55 Oxyhemoglobin 97.5 % (95.0-99.0) 09/06/20 04:15 Carboxyhemoglobin 0.8 (0.5-1.5) 09/11/20 04:55 FiO2 55 09/11/20 04:55 Sodium 159 mmol/L (137-145) H D 09/11/20 06:10 Potassium 4.4 mmol/L (3.6-5.0) 09/11/20 06:10 Chloride 121.9 mmol/L (98-107) H 09/11/20 06:10 Carbon Dioxide 30 mmol/L (22-30) 09/11/20 06:10 Anion Gap 12 mmol/L 09/11/20 06:10 BUN 59 mg/dL (9-20) H 09/11/20 06:10 Creatinine 0.9 mg/dL (0.8-1.3) 09/11/20 06:10 Estimated GFR > 60 ml/min 09/11/20 06:10 BUN/Creatinine Ratio 66 % 09/11/20 06:10 Glucose 526 mg/dL (75-100) H* 09/11/20 08:12 POC Glucose 374 mg/dL (70-105) H 09/11/20 12:13 Lactic Acid 1.40 mmol/L (0.7-2.0) 09/02/20 15:55 Calcium 8.2 mg/dL (8.4-10.2) L 09/11/20 06:10 Magnesium 1.80 mg/dL (1.7-2.3) 08/31/20 04:30 Ferritin 1485.0 ng/mL (30.0-300.0) H 09/08/20 19:15 Total Bilirubin 0.40 mg/dL (0.1-1.2) 09/05/20 07:17 AST 69 units/L (5-40) H 09/05/20 07:17 ALT 28 units/L (7-56) 09/05/20 07:17 Alkaline Phosphatase 168 units/L (35-129) H 09/05/20 07:17 Lactate Dehydrogenase 541 units/L (91-180) H 09/08/20 19:15 C-Reactive Protein 4.90 mg/dL (0.00-1.30) H 09/08/20 19:15 Total Protein 5.4 g/dL (6.3-8.2) L 09/05/20 07:17 Albumin 2.7 g/dL (3.9-5) L 09/05/20 07:17 Albumin/Globulin Ratio 1.0 % 09/05/20 07:17 Procalcitonin 0.16 ng/mL (<0.15) 09/08/20 19:15 Arterial Blood Glucose 515 mg/dL (65-95) H 09/11/20 04:55 Arterial Blood Ionized Calcium 4.9 mg/dL (4.6-5.3) 09/11/20 04:55 Urine Color Yellow (Yellow) 08/15/20 Unknown Urine Turbidity Clear (Clear) 08/15/20 Unknown Urine pH 6.0 (5.0-7.0) 08/15/20 Unknown Ur Specific Star 1.017 (1.003-1.030) 08/15/20 Unknown Urine Protein 100 mg/dl mg/dL (Negative) 08/15/20 Unknown Urine Glucose (UA) 50 mg/dL (Negative) 08/15/20 Unknown Urine Ketones Neg mg/dL (Negative) 08/15/20 Unknown Urine Blood Lg (Negative) 08/15/20 Unknown Urine Nitrite Neg (Negative) 08/15/20 Unknown Urine Bilirubin Neg (Negative) 08/15/20 Unknown Urine Urobilinogen < 2.0 mg/dL (<2.0) 08/15/20 Unknown Ur Leukocyte Esterase Sm (Negative) 08/15/20 Unknown Urine WBC (Auto) 31.0 /HPF (0.0-6.0) H 08/15/20 Unknown Urine RBC (Auto) 46.0 /HPF (0.0-6.0) 08/15/20 Unknown Urine Mucus Few /HPF 08/15/20 Unknown Nasal Screen MRSA (PCR) Negative (Negative) 09/06/20 12:41 Vancomycin Trough 14.2 ug/mL (5.0-20.0) 09/05/20 11:12 Coronavirus (PCR) Positive (Negative) A 08/29/20 Unknown Renae/IV: Voiding Method Indwelling Catheter IV Catheter Type [Right Hand] INT / Saline Lock IV Catheter Type [Right Upper PICC Line arm] IV Catheter Type [Right Wrist] INT / Saline Lock IV Catheter Type [Right INT / Saline Lock Forearm] IV Catheter Type [Left Hand] INT / Saline Lock Active Medications - Current Medications Current Medications: Generic Name Dose Route Start Last Admin Trade Name Freq PRN Reason Stop Dose Admin Acetaminophen 650 mg 08/15/20 18:13 09/02/20 12:17 Acetaminophen 325 Mg Tab PO 650 mg Q4H PRN Administration Pain MILD(1-3)/Fever >100.5/REYES Albuterol 2.5 mg 08/15/20 18:13 08/20/20 12:53 Albuterol 2.5 Mg/3 Ml Nebu IH 2.5 mg Q4HRT PRN Administration Shortness Of Breath Amlodipine Besylate 10 mg 08/16/20 10:00 09/11/20 10:13 Amlodipine 10 Mg Tab PO 10 mg QDAY DELFINO Administration Lipase/Protease/Amylase 1 each 09/06/20 11:37 Lipase 10,500/Protease 25,000/Amylase 43,750 (Units) Dr Lisa FEEDTUBE PRN PRN For Clogged Feeding Tube Ascorbic Acid 500 mg 09/03/20 22:00 09/11/20 10:13 Ascorbic Acid 500 Mg Tab PO 500 mg BID DELFINO Administration Atorvastatin Calcium 40 mg 08/15/20 22:00 09/10/20 22:00 Atorvastatin 40 Mg Tab PO 40 mg QHS DELFINO Administration Cilostazol 100 mg 08/15/20 22:00 09/11/20 10:14 Cilostazol 100 Mg Tab PO 100 mg BID DELFINO Administration Clopidogrel Bisulfate 75 mg 08/16/20 10:00 09/11/20 10:13 Clopidogrel 75 Mg Tab PO 75 mg QDAY DELFINO Administration Dexamethasone 6 mg 09/02/20 16:00 09/11/20 10:12 Dexamethasone 4 Mg/Ml Vial IV 09/12/20 15:59 6 mg DAILY DELFINO Administration Dextrose 50 ml 09/10/20 13:56 Dextrose 50% In Water (25gm) 50 Ml Syringe IV Q30MIN PRN Hypoglycemia Protocol Enoxaparin Sodium 90 mg 09/05/20 22:00 09/11/20 10:14 Enoxaparin 100 Mg/1 Ml Inj SUB-Q 90 mg Q12HR DELFINO Administration Fentanyl 50 mcg 09/05/20 05:23 Fentanyl 100 Mcg/2 Ml Inj IV Q10MIN PRN ANALGESIA Folic Acid 1 mg 08/16/20 10:00 09/11/20 10:13 Folic Acid 1 Mg Tab PO 1 mg QDAY DELFINO Administration Hydrophilic Ointment 1 applic 09/05/20 05:23 Lip Therapy Vaseline TP Q2HR PRN Dry Lips Sodium Chloride 500 mls @ 1 mls/hr 09/02/20 13:41 09/02/20 18:53 Nacl 0.9% 500 Ml IV 1 mls/hr DIRECT PRN Administration ARTERIAL LINE FLUSH Norepinephrine 4 mg in 250 mls @ 7.5 mls/hr 09/02/20 15:00 09/07/20 06:50 Levophed Drip 4 Mg/Ns 250 Ml IV 0 mcg/min TITR DELFINO 0 mls/hr Titration Protocol 2 MCG/MIN Vasopressin 20 unit/ Sodium 101 mls @ 9.09 mls/hr 09/02/20 16:00 Chloride IV TITR DELFINO Protocol 0.03 UNITS/MIN Fentanyl Citrate 2,000 mcg in 100 mls @ 4.465 mls/hr 09/05/20 06:00 09/11/20 09:18 Fentanyl Drip Premix IV 0 mcg/kg/hr TITR DELFINO 0 mls/hr Titration Protocol 1 MCG/KG/HR Midazolam HCl 100 mg/ Sodium 100 mls @ 2 mls/hr 09/05/20 06:00 09/06/20 08:30 Chloride IV 0 mg/hr TITR DELFINO 0 mls/hr Titration Protocol 2 MG/HR Sodium Chloride 1,000 mls @ 75 mls/hr 09/11/20 14:00 09/11/20 13:19 Nacl 0.45% 1000 Ml IV 09/13/20 03:19 75 mls/hr DIRECT DELFINO Administration Insulin Glargine 15 units 09/11/20 10:00 09/11/20 10:12 Insulin Glargine 100 Units/Ml SUB-Q 15 units DAILY DELFINO Administration Insulin Glargine 10 units 09/11/20 22:00 Insulin Glargine 100 Units/Ml SUB-Q QHS DELFINO Insulin Human Lispro 0 unit 09/10/20 18:00 09/11/20 13:18 Insulin Lispro 100 Unit/Ml Vial 3 Ml SUB-Q 10 unit Q6H DELFINO Administration Protocol Lansoprazole 30 mg 09/05/20 10:00 09/11/20 10:13 Lansoprazole 30 Mg Solutab FEEDTUBE 30 mg QDAY DELFINO Administration Loperamide HCl 2 mg 08/26/20 23:00 08/28/20 12:51 Loperamide 2 Mg Cap PO 2 mg PRN PRN Administration Diarrhea Lorazepam 1 mg 09/06/20 17:25 Lorazepam 2 Mg/Ml Vial IV Q4H PRN Anxiety Metoprolol Tartrate 50 mg 08/15/20 22:00 09/11/20 10:13 Metoprolol Tartrate 50 Mg Tab PO 50 mg BID DELFINO Administration Midazolam HCl 2 mg 09/05/20 05:23 09/05/20 05:56 Midazolam 2 Mg/2 Ml Inj IV 2 mg Q10MIN PRN Administration Sedation Multi-Ingred Cream/Lotion/Oil/Oint 1 applic 09/05/20 05:23 Mineral Oil/Petrolatum, White Ophth Oint 3.5 Gm OU Q4HR PRN Dry Eye(s) Ondansetron HCl 4 mg 08/15/20 18:13 08/18/20 17:46 Ondansetron 4 Mg/2 Ml Inj IV 4 mg Q8H PRN Administration Nausea And Vomiting Simple Syrup 15 ml 09/06/20 11:37 Simple Syrup 15 Ml FEEDTUBE PRN PRN Hypoglycemia Simple Syrup 30 ml 09/06/20 11:37 Simple Syrup 15 Ml FEEDTUBE PRN PRN Hypoglycemia Sodium Bicarbonate 325 mg 09/06/20 11:37 Sodium Bicarbonate 325 Mg Tab FEEDTUBE PRN PRN For Clogged Feeding Tube Sodium Chloride 10 ml 08/15/20 22:00 09/11/20 10:12 Sodium Chloride 0.9% 10 Ml Flush Syringe IV 10 ml BID DELFINO Administration Sodium Chloride 10 ml 08/15/20 18:13 Sodium Chloride 0.9% 10 Ml Flush Syringe IV PRN PRN LINE FLUSH Thiamine HCl 100 mg 08/16/20 10:00 09/11/20 10:13 Thiamine 100 Mg Tab PO 100 mg QDAY DELFINO Administration Zinc Sulfate 220 mg 09/03/20 22:00 09/11/20 10:14 Zinc Sulfate 220 Mg Cap PO 220 mg BID DELFINO Administration Nutrition/Malnutrition Assess - Dietary Evaluation Nutrition/Malnutrition Findings: Nutrition Notes Start: 08/21/20 14:41 Freq: Status: Active Protocol: Document 09/10/20 12:44 MK (Rec: 09/10/20 12:48 [id number]) Nutrition Notes Initial or Follow up Reassessment Current Diagnosis Coronary Artery Disease,Sepsis ,Hypertension,Heart Failure, Hyperlipidemia Other Pertinent Diagnosis PVD, ETOH dep, acute resp failure, pneu, gout, (L) foot ulcer Current Diet Vital HP at 70 ml/hr Labs/Tests POC BG 358 Pertinent Medications Decadron Height 5 ft 4 in Weight 90.3 kg [place] Body Weight (kg) 59.09 BMI 34.2 Weight Status Obese Subjective/Other Information FU for TF tolerance. Observed Vital HP running at goal rate. Percent of energy/protein needs met: 98%/100% Burn Absent Trauma Absent GI Symptoms None Current % PO Negligible Minimum of two criteria No Reduced Rn Palliative Care Strength N/A (non-severe) #2 Nutrition Diagnosis Inadequate oral intake Diagnosis Progress(for reassessment Continues documentation) #1 Nutrition Diagnosis Increased nutrient needs ( specify in comment below) Diagnosis Progress(for reassessment Continues documentation) Is patient on ventilator? Yes Is Patient Ambulatory and/or Out of Bed No REE-([place]-confined to bed) 1935.768 Kcal/Kg value to use for calculation 19 Approximate Energy Requirements Using 1716 kcal/Kg Calculation Used for Recommendations Kcal/kg Additional Notes Protein needs are >/=2g/kg IBW (>/=118g/day) Fluid needs are 1ml/kcal Nutrition Intervention Change Diet Order: Continue TF Nutrition Support: Vital High Protein at 70ml/hr For hypernatremia flush 200ml q4h, once hypernatremia is resolved flush 100ml q4h Kcal 1,680 Protein (gm) 147 Fluid (mL) 1,404 Add Supplement/Snack (indicate name/kcal [place]e BID /protein ) Provides kCal: 190 Provides Protein (gm) 5 Goal #1 Meet at least 75% of energy and protein needs Goal #2 Wound healing Anticipated Discharge Needs: Unable to determine at this time Follow-Up By: 09/12/20 Additional Comments FU for TF tolerance, labs
[2020-09-12] MEDS: INSULIN LISPRO 100 UNIT/ML VIAL 3 mL SUB-Q SCH ×4 (00:55→17:23)
[2020-09-12] MEDS: SODIUM CHLORIDE 0.45% 1000 ML 1,000 ML IV SCH (00:55)
[2020-09-12] MEDS: ENOXAPARIN 100 MG/1 ML INJ SUB-Q SCH ×3 (00:56→21:27)
[2020-09-12] MEDS: ASCORBIC ACID 500 MG TAB PO SCH ×3 (00:56→21:28)
[2020-09-12] MEDS: CILOSTAZOL 100 MG TAB PO SCH ×3 (00:56→21:27)
[2020-09-12] MEDS: METOPROLOL TARTRATE 50 MG TAB PO SCH ×3 (00:56→21:27)
[2020-09-12] MEDS: ZINC SULFATE 220 MG CAP PO SCH ×3 (00:56→21:28)
[2020-09-12 04:18] LABS: ABG Base Excess 6.4 mmol/L (-2.0-3.0); ABG HCO3 31.3 mmol/L (20.0-26.0); ABG Methemoglobin 0.3 % (0.0-1.5); ABG Oxygen Saturation 97.2 % (95.0-99.0); ABG PCO2 48.6 mm Hg; ABG PH 7.427 pH Units (7.350-7.450); ABG PO2 77.1 mm Hg (80.0-90.0)
[2020-09-12 06:15] LABS: Basophils # (Auto) 0.1 K/mm3 (0.0-0.1); Basophils % (Auto) 1.2 % (0.0-1.8); Hematocrit 21.7 % (35.5-45.6); Hemoglobin 6.6 gm/dl (11.8-15.2); Lymphocytes # (Auto) 0.8 K/mm3 (1.2-5.4); Lymphocytes % (Auto) 8.5 % (13.4-35.0); Mean Corpuscular HGB Conc 31 % (32-34); Mean Corpuscular Volume 92 fl (84-94); Monocytes # (Auto) 0.4 K/mm3 (0.0-0.8); Monocytes % (Auto) 3.7 % (0.0-7.3); Platelet Count 174 K/mm3 (140-440); Red Blood Count 2.36 M/mm3 (3.65-5.03); Red Cell Distribution Width 19.9 % (13.2-15.2)
[2020-09-12 07:16] LABS: BUN/Creatinine Ratio 66; Blood Urea Nitrogen 46 mg/dL (9-20); Calcium 7.3 mg/dL (8.4-10.2); Hemolysis Index 2
[2020-09-12] MEDS ORDERED: INSULIN GLARGINE 100 UNITS/ML SUB-Q SCH (08:00)
--- NOTE | 2020-09-12 08:31 | XRay Report ---
CHEST 1 VIEW INDICATION / CLINICAL INFORMATION: follow up respiratory failure. COMPARISON: Chest radiograph one day prior FINDINGS: SUPPORT DEVICES: Stable position of endotracheal tube, enteric tube, and right-sided PICC. HEART / MEDIASTINUM: Stable. LUNGS / PLEURA: Bilateral patchy airspace opacities, most confluent in the left lung base, are not si gnificantly changed compared with prior examination. No pleural effusion. No pneumothorax. ADDITIONAL FINDINGS: No significant additional findings. IMPRESSION: 1. No significant change. Signer Name: Darlin Turcios MD Signed: 09/12/2020 8:26 AM Workstation Name: [id number]
[2020-09-12] MEDS: CLOPIDOGREL 75 MG TAB PO SCH (09:13)
[2020-09-12] MEDS: THIAMINE 100 MG TAB PO SCH (09:13)
[2020-09-12] MEDS: LANSOPRAZOLE 30 MG SOLUTAB FEEDTUBE SCH (09:13)
[2020-09-12] MEDS: amLODIPine 10 MG TAB PO SCH (09:13)
[2020-09-12] MEDS: FOLIC ACID 1 MG TAB PO SCH (09:14)
[2020-09-12] MEDS: dexAMETHasone 4 MG/ML VIAL IV SCH (09:14)
[2020-09-12] MEDS ORDERED: SODIUM CHLORIDE 0.9% 500 ML 500 ML IV SCH (12:40)
--- NOTE | 2020-09-12 12:44 | Progress Note ---
Assessment and Plan Assessment and plan: 64 YO Male HD #26 with PVD, Coronavirus Infection, Acute Respiratory Failure, Sepsis, Pneumonia, Toxic Encephalopathy, Necrosis of Surgical wound. Patient resting in bed. No acute decompensation overnight. No improvement overnight. Patient remains critically ill. Patient prognosis is poor to guarded. 09/10: Significant elevated blood sugar. Patient with labile blood sugar issues. Aspiration precautions continue vent weaning per scientific aide. Continue antibiotics management. Patient with noted hypernatremia we will continue to monitor sodium levels. Also with anemia of chronic disease we will monitor H&H closely. 09/11; Patient remains critically ill, continue wound care, monitor and adjust insulin for better control. 09/12: Noted Anemia, Will give 2 units PRBC. Continue supportive care, wean from vent as tolerated, Continue to monitor sodium level. IR input noted, adjust further insulin (1) severe sepsis with shock Current Visit: Yes Status: Acute Plan to address problem: Sepsis protocol: CBC, CMP, IV fluid resuscitation therapy as clinically indicated, IV antibiotic therapy, monitor urine output every shift, maintain mean arterial blood pressure greater than or equal to 65, (2) Acute hypoxemic respiratory failure Current Visit: Yes Status: Acute Plan to address problem: Wean vent as tolerated, daily ABG, spontaneous breathing trial daily, chest x- ray, sedation holiday, supportive care. (3) Necrosis of surgical wound Current Visit: Yes Status: Acute Plan to address problem: Surgery team consulted. pain control, supportive care. Further care as per vascular surgery team. (4) CHF (congestive heart failure) Current Visit: No Status: Chronic Qualifiers: Heart failure chronicity: chronic Plan to address problem: Strict I/O, monitor urine output every shift, daily weight, monitor fluid balance, afterload reduction, blood pressure control. (5) Hypertension Current Visit: Yes Status: Acute Qualifiers: Hypertension type: essential hypertension Qualified Code(s): I10 - Essential (primary) hypertension Plan to address problem: Monitor blood pressure every shift, continue medical management (6) UTI (urinary tract infection) Current Visit: Yes Status: Acute Qualifiers: Encounter type: initial encounter Plan to address problem: CBC, CMP, urinalysis, IV antibiotic therapy. (7) Coronavirus infection Current Visit: Yes Status: Acute Plan to address problem: Coronavirus protocol: IV antibiotic therapy, IV steroid therapy, supplemental oxygen, vitamin C supplementation, zinc supplementation, (8) peripheral vascular disease (9) DVT prophylaxis Current Visit: Yes Status: Acute Plan to address problem: SCD to bilateral lower extremities while in bed, anticoagulation as per surgical team (9) Toxic metabolic encephalopathy Current Visit: Yes Status: Acute Plan to address problem: Supportive care, treat sepsis, (10) Advance care planning Current Visit: Yes Status: Acute Plan to address problem: Disease education conducted, patient is full code, prognosis discussed, care plan discussed, patient knowledges understanding and agreement with care plan, +30 minutes (10) history of alcohol abuse [11] history of gout [12] left lower extremity/left foot ulcer The high probability of a clinically significant, sudden or life threatening deterioration of the [cardiac, pulmonary, renal, infectious disease] system(s) required my full and direct attention, intervention and personal management. The aggregate critical care time was [65] minutes. This time is in addition to time spent performing reported procedures but includes the following: [x] Data Review and interpretation [x] Patient assessment and monitoring of vital signs [x] Documentation [x] Medication orders and management History Interval history: Patient seen and examined remains on full mechanical ventilation Hospitalist Physical - Physical exam Narrative exam: General appearance: Present: Mild distress on full ventilatory support. Limited exam due to PPE conservation during COVID Pandemic - EENT Eyes: Present: miosis ENT: hearing decreased - Neck Neck: Present: supple - Respiratory Respiratory effort: labored Respiratory: bilateral: diminished, rhonchi - Cardiovascular Rhythm: regular Heart Sounds: Present: S1 & S2 - Extremities Extremity abnormal: edema Peripheral Pulses: abnormal (Capillary refill greater than 3.5 seconds) - Abdominal General gastrointestinal: soft, non-tender, non-distended - Integumentary Integumentary: Present: dressing and wound vac to lower ext - Psychiatric Psychiatric: no appropriate mood/affect, no intact judgment & insight, no memory intact - Neurologic Neurologic: CNII-XII intact, no gait normal - Constitutional Vitals: Temp Pulse Resp BP Pulse Ox 98 F 71 15 122/54 98 09/12/20 08:00 09/12/20 11:55 09/12/20 11:00 09/12/20 11:55 09/12/20 11:55 General appearance: Present: no acute distress, well-nourished Results - Labs CBC & Chem 7: 09/12/20 06:01 09/12/20 06:01 Labs: Laboratory Last Values WBC 9.9 K/mm3 (4.5-11.0) 09/12/20 06:01 RBC 2.36 M/mm3 (3.65-5.03) L 09/12/20 06:01 Hgb 6.6 gm/dl (11.8-15.2) L 09/12/20 06:01 Hct 21.7 % (35.5-45.6) L 09/12/20 06:01 MCV 92 fl (84-94) 09/12/20 06:01 MCH 28 pg (28-32) 09/12/20 06:01 MCHC 31 % (32-34) L 09/12/20 06:01 RDW 19.9 % (13.2-15.2) H 09/12/20 06:01 Plt Count 174 K/mm3 (140-440) 09/12/20 06:01 Lymph % (Auto) 8.5 % (13.4-35.0) L 09/12/20 06:01 [place] % (Auto) 3.7 % (0.0-7.3) 09/12/20 06:01 Eos % (Auto) 0.0 % (0.0-4.3) 09/12/20 06:01 Baso % (Auto) 1.2 % (0.0-1.8) 09/12/20 06:01 Lymph # (Auto) 0.8 K/mm3 (1.2-5.4) L 09/12/20 06:01 [place] # (Auto) 0.4 K/mm3 (0.0-0.8) 09/12/20 06:01 Eos # (Auto) 0.0 K/mm3 (0.0-0.4) 09/12/20 06:01 Baso # (Auto) 0.1 K/mm3 (0.0-0.1) 09/12/20 06:01 Seg Neutrophils % 86.6 % (40.0-70.0) H 09/12/20 06:01 Seg Neutrophils # 8.5 K/mm3 (1.8-7.7) H 09/12/20 06:01 PT 15.5 Sec. (12.2-14.9) H 09/02/20 15:55 INR 1.23 (0.87-1.13) H 09/02/20 15:55 APTT 50.2 Sec. (24.2-36.6) H 09/02/20 15:55 D-Dimer 1449.12 ng/mlDDU (0-234) H 09/08/20 19:15 Heparin Anti-Xa Level 0.47 U.I./ml (0.3-0.7) 09/06/20 07:29 ABG pH 7.427 pH Units (7.350-7.450) 09/12/20 03:40 POC ABG pCO2 49.3 mmHg (32.0-48.0) H 09/11/20 04:55 ABG pCO2 48.6 mm Hg 09/12/20 03:40 POC ABG pO2 78.2 mmHg (83-108) L 09/11/20 04:55 ABG pO2 77.1 mm Hg (80.0-90.0) L 09/12/20 03:40 POC ABG HCO3 31.1 09/11/20 04:55 ABG HCO3 31.3 mmol/L (20.0-26.0) H 09/12/20 03:40 ABG O2 Saturation 97.2 % (95.0-99.0) 09/12/20 03:40 ABG O2 Content 7.4 (0.0-44) 09/12/20 03:40 POC ABG Base Excess 5.9 09/11/20 04:55 ABG Base Excess 6.4 mmol/L (-2.0-3.0) H 09/12/20 03:40 ABG Hemoglobin 5.4 gm/dl (14.0-18.0) L 09/12/20 03:40 ABG Oxyhemoglobin 94.3 (94-98) 09/11/20 04:55 ABG Carboxyhemoglobin 1.6 % (0.0-5.0) 09/12/20 03:40 ABG Methemoglobin 0.3 % (0.0-1.5) 09/12/20 03:40 ABG Sodium 155.0 mmol/L (136.0-145.0) H 09/11/20 04:55 ABG Potassium 4.3 mmol/L (3.40-4.50) 09/11/20 04:55 ABG Chloride 120.0 mmol/L (98-107) H 09/11/20 04:55 ABG Glucose 515 mg/dL (65-95) H 09/11/20 04:55 Oxyhemoglobin 95.4 % (95.0-99.0) 09/12/20 03:40 Carboxyhemoglobin 0.8 (0.5-1.5) 09/11/20 04:55 FiO2 55 % 09/12/20 03:40 Sodium 153 mmol/L (137-145) H 09/12/20 06:01 Potassium 4.1 mmol/L (3.6-5.0) 09/12/20 06:01 Chloride 117.7 mmol/L (98-107) H 09/12/20 06:01 Carbon Dioxide 32 mmol/L (22-30) H 09/12/20 06:01 Anion Gap 7 mmol/L 09/12/20 06:01 BUN 46 mg/dL (9-20) H 09/12/20 06:01 Creatinine 0.7 mg/dL (0.8-1.3) L 09/12/20 06:01 Estimated GFR > 60 ml/min 09/12/20 06:01 BUN/Creatinine Ratio 66 % 09/12/20 06:01 Glucose 358 mg/dL (75-100) H 09/12/20 06:01 POC Glucose 350 mg/dL (70-105) H 09/12/20 11:22 Lactic Acid 1.40 mmol/L (0.7-2.0) 09/02/20 15:55 Calcium 7.3 mg/dL (8.4-10.2) L 09/12/20 06:01 Magnesium 1.80 mg/dL (1.7-2.3) 08/31/20 04:30 Ferritin 1485.0 ng/mL (30.0-300.0) H 09/08/20 19:15 Total Bilirubin 0.40 mg/dL (0.1-1.2) 09/05/20 07:17 AST 69 units/L (5-40) H 09/05/20 07:17 ALT 28 units/L (7-56) 09/05/20 07:17 Alkaline Phosphatase 168 units/L (35-129) H 09/05/20 07:17 Lactate Dehydrogenase 541 units/L (91-180) H 09/08/20 19:15 C-Reactive Protein 4.90 mg/dL (0.00-1.30) H 09/08/20 19:15 Total Protein 5.4 g/dL (6.3-8.2) L 09/05/20 07:17 Albumin 2.7 g/dL (3.9-5) L 09/05/20 07:17 Albumin/Globulin Ratio 1.0 % 09/05/20 07:17 Procalcitonin 0.16 ng/mL (<0.15) 09/08/20 19:15 Arterial Blood Glucose 515 mg/dL (65-95) H 09/11/20 04:55 Arterial Blood Ionized Calcium 4.9 mg/dL (4.6-5.3) 09/11/20 04:55 Urine Color Yellow (Yellow) 08/15/20 Unknown Urine Turbidity Clear (Clear) 08/15/20 Unknown Urine pH 6.0 (5.0-7.0) 08/15/20 Unknown Ur Specific [place] 1.017 (1.003-1.030) 08/15/20 Unknown Urine Protein 100 mg/dl mg/dL (Negative) 08/15/20 Unknown Urine Glucose (UA) 50 mg/dL (Negative) 08/15/20 Unknown Urine Ketones Neg mg/dL (Negative) 08/15/20 Unknown Urine Blood Lg (Negative) 08/15/20 Unknown Urine Nitrite Neg (Negative) 08/15/20 Unknown Urine Bilirubin Neg (Negative) 08/15/20 Unknown Urine Urobilinogen < 2.0 mg/dL (<2.0) 08/15/20 Unknown Ur Leukocyte Esterase Sm (Negative) 08/15/20 Unknown Urine WBC (Auto) 31.0 /HPF (0.0-6.0) H 08/15/20 Unknown Urine RBC (Auto) 46.0 /HPF (0.0-6.0) 08/15/20 Unknown Urine Mucus Few /HPF 08/15/20 Unknown Nasal Screen MRSA (PCR) Negative (Negative) 09/06/20 12:41 Vancomycin Trough 14.2 ug/mL (5.0-20.0) 09/05/20 11:12 Coronavirus (PCR) Positive (Negative) A 08/29/20 Unknown Renae/IV: Voiding Method Indwelling Catheter IV Catheter Type [Right Hand] INT / Saline Lock IV Catheter Type [Right Upper PICC Line arm] IV Catheter Type [Right Wrist] INT / Saline Lock IV Catheter Type [Right INT / Saline Lock Forearm] IV Catheter Type [Left Hand] INT / Saline Lock Active Medications - Current Medications Current Medications: Generic Name Dose Route Start Last Admin Trade Name Freq PRN Reason Stop Dose Admin Acetaminophen 650 mg 08/15/20 18:13 09/02/20 12:17 Acetaminophen 325 Mg Tab PO 650 mg Q4H PRN Administration Pain MILD(1-3)/Fever >100.5/REYES Albuterol 2.5 mg 08/15/20 18:13 08/20/20 12:53 Albuterol 2.5 Mg/3 Ml Nebu IH 2.5 mg Q4HRT PRN Administration Shortness Of Breath Amlodipine Besylate 10 mg 08/16/20 10:00 09/12/20 09:13 Amlodipine 10 Mg Tab PO 10 mg QDAY DELFINO Administration Lipase/Protease/Amylase 1 each 09/06/20 11:37 Lipase 10,500/Protease 25,000/Amylase 43,750 (Units) Dr Lisa FEEDTUBE PRN PRN For Clogged Feeding Tube Ascorbic Acid 500 mg 09/03/20 22:00 09/12/20 09:13 Ascorbic Acid 500 Mg Tab PO 500 mg BID DELFINO Administration Atorvastatin Calcium 40 mg 08/15/20 22:00 09/12/20 00:56 Atorvastatin 40 Mg Tab PO 40 mg QHS DELFINO Administration Cilostazol 100 mg 08/15/20 22:00 09/12/20 09:13 Cilostazol 100 Mg Tab PO 100 mg BID DELFINO Administration Clopidogrel Bisulfate 75 mg 08/16/20 10:00 09/12/20 09:13 Clopidogrel 75 Mg Tab PO 75 mg QDAY DELFINO Administration Dexamethasone 6 mg 09/02/20 16:00 09/12/20 09:14 Dexamethasone 4 Mg/Ml Vial IV 09/12/20 15:59 6 mg DAILY DELFINO Administration Dextrose 50 ml 09/10/20 13:56 Dextrose 50% In Water (25gm) 50 Ml Syringe IV Q30MIN PRN Hypoglycemia Protocol Enoxaparin Sodium 90 mg 09/05/20 22:00 09/12/20 09:16 Enoxaparin 100 Mg/1 Ml Inj SUB-Q 90 mg Q12HR DELFINO Administration Fentanyl 50 mcg 09/05/20 05:23 Fentanyl 100 Mcg/2 Ml Inj IV Q10MIN PRN ANALGESIA Folic Acid 1 mg 08/16/20 10:00 09/12/20 09:14 Folic Acid 1 Mg Tab PO 1 mg QDAY DELFINO Administration Hydrophilic Ointment 1 applic 09/05/20 05:23 Lip Therapy Vaseline TP Q2HR PRN Dry Lips Sodium Chloride 500 mls @ 1 mls/hr 09/02/20 13:41 09/02/20 18:53 Nacl 0.9% 500 Ml IV 1 mls/hr DIRECT PRN Administration ARTERIAL LINE FLUSH Norepinephrine 4 mg in 250 mls @ 7.5 mls/hr 09/02/20 15:00 09/07/20 06:50 Levophed Drip 4 Mg/Ns 250 Ml IV 0 mcg/min TITR DELFINO 0 mls/hr Titration Protocol 2 MCG/MIN Vasopressin 20 unit/ Sodium 101 mls @ 9.09 mls/hr 09/02/20 16:00 Chloride IV TITR DELFINO Protocol 0.03 UNITS/MIN Fentanyl Citrate 2,000 mcg in 100 mls @ 4.465 mls/hr 09/05/20 06:00 09/11/20 19:07 Fentanyl Drip Premix IV 0 mcg/kg/hr TITR DELFINO 0 mls/hr Titration Protocol 1 MCG/KG/HR Midazolam HCl 100 mg/ Sodium 100 mls @ 2 mls/hr 09/05/20 06:00 09/06/20 08:30 Chloride IV 0 mg/hr TITR DELFINO 0 mls/hr Titration Protocol 2 MG/HR Sodium Chloride 1,000 mls @ 75 mls/hr 09/11/20 14:00 09/12/20 00:55 Nacl 0.45% 1000 Ml IV 09/13/20 03:19 75 mls/hr DIRECT DELFINO Administration Insulin Glargine 15 units 09/12/20 08:00 09/12/20 09:15 Insulin Glargine 100 Units/Ml SUB-Q 15 units BIDDIAB DELFINO Administration Insulin Human Lispro 0 unit 09/10/20 18:00 09/12/20 06:53 Insulin Lispro 100 Unit/Ml Vial 3 Ml SUB-Q 6 unit Q6H DELFINO Administration Protocol Lansoprazole 30 mg 09/05/20 10:00 09/12/20 09:13 Lansoprazole 30 Mg Solutab FEEDTUBE 30 mg QDAY DELFINO Administration Loperamide HCl 2 mg 08/26/20 23:00 08/28/20 12:51 Loperamide 2 Mg Cap PO 2 mg PRN PRN Administration Diarrhea Lorazepam 1 mg 09/06/20 17:25 Lorazepam 2 Mg/Ml Vial IV Q4H PRN Anxiety Metoprolol Tartrate 50 mg 08/15/20 22:00 09/12/20 09:13 Metoprolol Tartrate 50 Mg Tab PO 50 mg BID DELFINO Administration Midazolam HCl 2 mg 09/05/20 05:23 09/05/20 05:56 Midazolam 2 Mg/2 Ml Inj IV 2 mg Q10MIN PRN Administration Sedation Multi-Ingred Cream/Lotion/Oil/Oint 1 applic 09/05/20 05:23 Mineral Oil/Petrolatum, White Ophth Oint 3.5 Gm OU Q4HR PRN Dry Eye(s) Ondansetron HCl 4 mg 08/15/20 18:13 08/18/20 17:46 Ondansetron 4 Mg/2 Ml Inj IV 4 mg Q8H PRN Administration Nausea And Vomiting Simple Syrup 15 ml 09/06/20 11:37 Simple Syrup 15 Ml FEEDTUBE PRN PRN Hypoglycemia Simple Syrup 30 ml 09/06/20 11:37 Simple Syrup 15 Ml FEEDTUBE PRN PRN Hypoglycemia Sodium Bicarbonate 325 mg 09/06/20 11:37 Sodium Bicarbonate 325 Mg Tab FEEDTUBE PRN PRN For Clogged Feeding Tube Sodium Chloride 10 ml 08/15/20 22:00 09/12/20 09:16 Sodium Chloride 0.9% 10 Ml Flush Syringe IV 10 ml BID DELFINO Administration Sodium Chloride 10 ml 08/15/20 18:13 Sodium Chloride 0.9% 10 Ml Flush Syringe IV PRN PRN LINE FLUSH Thiamine HCl 100 mg 08/16/20 10:00 09/12/20 09:13 Thiamine 100 Mg Tab PO 100 mg QDAY DELFINO Administration Zinc Sulfate 220 mg 09/03/20 22:00 09/12/20 09:13 Zinc Sulfate 220 Mg Cap PO 220 mg BID DELFINO Administration Nutrition/Malnutrition Assess - Dietary Evaluation Nutrition/Malnutrition Findings: Nutrition Notes Start: 08/21/20 14:41 Freq: Status: Active Protocol: Document 09/10/20 12:44 (Rec: 09/10/20 12:48 [email or web address]) Nutrition Notes Initial or Follow up Reassessment Current Diagnosis Coronary Artery Disease,Sepsis ,Hypertension,Heart Failure, Hyperlipidemia Other Pertinent Diagnosis PVD, ETOH dep, acute resp failure, pneu, gout, (L) foot ulcer Current Diet Vital HP at 70 ml/hr Labs/Tests POC BG 358 Pertinent Medications Decadron Height 5 ft 4 in Weight 90.3 kg [place] Body Weight (kg) 59.09 BMI 34.2 Weight Status Obese Subjective/Other Information FU for TF tolerance. Observed Vital HP running at goal rate. 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 Yes Is Patient Ambulatory and/or Out of Bed No REE-([facility]-confined to bed) 1935.768 Kcal/Kg value to use for calculation 19 Approximate Energy Requirements Using 1716 kcal/Kg Calculation Used for Recommendations Kcal/kg Additional Notes Protein needs are >/=2g/kg IBW (>/=118g/day) Fluid needs are 1ml/kcal Nutrition Intervention Change Diet Order: Continue TF Nutrition Support: Vital High Protein at 70ml/hr For hypernatremia flush 200ml q4h, once hypernatremia is resolved flush 100ml q4h Kcal 1,680 Protein (gm) 147 Fluid (mL) 1,404 Add Supplement/Snack (indicate name/kcal [place] BID /protein ) Provides kCal: 190 Provides Protein (gm) 5 Goal #1 Meet at least 75% of energy and protein needs Goal #2 Wound healing Anticipated Discharge Needs: Unable to determine at this time Follow-Up By: 09/12/20 Additional Comments FU for TF tolerance, labs
--- NOTE | 2020-09-12 13:20 | Progress Note ---
Assessment and Plan Cultures: 08/16/2020 SARS CoV2 PCR: Negative 08/29/2020 SARS CoV2 PCR: Positive 08/15/2020 urine culture: No growth 08/24/2020 blood culture: No growth 08/28/2020 blood culture: No growth 08/28/2020 urine culture: No growth MRSA PCR negative 09/05/2020 Sputum +Barby A/P: 64-year-old male with hypertension, coronary artery disease, peripheral vascular disease, gout, alcohol dependence was admitted to the hospital on 08/15/2020 due to bleeding from his left foot which is a site of a previous surgery. Patient was noted to have wound dehiscence complicated by wound necrosis. Was seen by vascular surgery. He underwent a TMA. Due to fever, patient was receiving IV levofloxacin for UTI. COVID-19 test done on 08/29/2020 for placement reasons came back positive. Patient has been having intermittent fevers since 08/28/2020. 09/02/2020, a code MET was called due to tachypnea and labored respirations: #Shock: Probably from severe COVID-19. #Bilateral pneumonia: Secondary to COVID-19. Patient with severe hypoxia, elevated inflammatory markers, i,proving. Recently had completed levofloxacin. Sputum with barby, likely a colonizer. Markers improving. #Acute hypoxic respiratory failure: remains intubated improving FIO2=55/p10 #Peripheral vascular disease, wound dehiscence and necrosis: underwent TMA by v ascular surgery now with wound VAC #Coronary artery disease, CHF #DM: uncontrolled with hyperglycemia. Recs: -Continue IV/PO Dexamethasone 6 mg daily x 10 days completed 10 days needs taper -Completed remdesivir -S/p empiric 8 days of aztreonam and vanco -monitor off abx -continue wound care Corry Perrin MD [facility] ([facility]) Office [phone] Subjective Date of service: 09/12/20 Principal diagnosis: Ac hypoxemic resp failure; COVID-19; Pneumonia; Sepsis; PVD; L. foot ulcer Interval history: Remains intubated, FiO2 55, no fever, no hypotension. Objective - Exam Narrative Exam: Physical Exam: reviewed ED and hospitalist notes. Deferred to prevent COVID-19 transmission. - Constitutional Vitals: Vital Signs Temp Pulse Resp BP Pulse Ox 98 F 71 15 122/54 98 09/12/20 08:00 09/12/20 11:55 09/12/20 11:00 09/12/20 11:55 09/12/20 11:55 Temperature -Last 24 Hours Temperature 98 F Temperature 99.7 F Temperature 99.3 F Temperature 98.9 F Temperature 98.6 F - Labs CBC & Chem 7: 09/12/20 06:01 09/12/20 06:01 Labs: Abnormal lab results 09/11/20 09/11/20 09/12/20 Range/Units 17:04 23:39 03:40 RBC (3.65-5.03) M/mm3 Hgb (11.8-15.2) gm/dl Hct (35.5-45.6) % MCHC (32-34) % RDW (13.2-15.2) % Lymph % (Auto) (13.4-35.0) % Lymph # (Auto) (1.2-5.4) K/mm3 Seg Neutrophils % (40.0-70.0) % Seg Neutrophils # (1.8-7.7) K/mm3 ABG pO2 77.1 L (80.0-90.0) mm Hg ABG HCO3 31.3 H (20.0-26.0) mmol/L ABG Base Excess 6.4 H (-2.0-3.0) mmol/L ABG Hemoglobin 5.4 L (14.0-18.0) gm/dl Sodium (137-145) mmol/L Chloride (98-107) mmol/L Carbon Dioxide (22-30) mmol/L BUN (9-20) mg/dL Creatinine (0.8-1.3) mg/dL Glucose (75-100) mg/dL POC Glucose 398 H 355 H (70-105) mg/dL Calcium (8.4-10.2) mg/dL 09/12/20 09/12/20 09/12/20 Range/Units 05:42 06:01 06:01 RBC 2.36 L (3.65-5.03) M/mm3 Hgb 6.6 L (11.8-15.2) gm/dl Hct 21.7 L (35.5-45.6) % MCHC 31 L (32-34) % RDW 19.9 H (13.2-15.2) % Lymph % (Auto) 8.5 L (13.4-35.0) % Lymph # (Auto) 0.8 L (1.2-5.4) K/mm3 Seg Neutrophils % 86.6 H (40.0-70.0) % Seg Neutrophils # 8.5 H (1.8-7.7) K/mm3 ABG pO2 (80.0-90.0) mm Hg ABG HCO3 (20.0-26.0) mmol/L ABG Base Excess (-2.0-3.0) mmol/L ABG Hemoglobin (14.0-18.0) gm/dl Sodium 153 H (137-145) mmol/L Chloride 117.7 H (98-107) mmol/L Carbon Dioxide 32 H (22-30) mmol/L BUN 46 H (9-20) mg/dL Creatinine 0.7 L (0.8-1.3) mg/dL Glucose 358 H (75-100) mg/dL POC Glucose 286 H (70-105) mg/dL Calcium 7.3 L (8.4-10.2) mg/dL 09/12/20 Range/Units 11:22 RBC (3.65-5.03) M/mm3 Hgb (11.8-15.2) gm/dl Hct (35.5-45.6) % MCHC (32-34) % RDW (13.2-15.2) % Lymph % (Auto) (13.4-35.0) % Lymph # (Auto) (1.2-5.4) K/mm3 Seg Neutrophils % (40.0-70.0) % Seg Neutrophils # (1.8-7.7) K/mm3 ABG pO2 (80.0-90.0) mm Hg ABG HCO3 (20.0-26.0) mmol/L ABG Base Excess (-2.0-3.0) mmol/L ABG Hemoglobin (14.0-18.0) gm/dl Sodium (137-145) mmol/L Chloride (98-107) mmol/L Carbon Dioxide (22-30) mmol/L BUN (9-20) mg/dL Creatinine (0.8-1.3) mg/dL Glucose (75-100) mg/dL POC Glucose 350 H (70-105) mg/dL Calcium (8.4-10.2) mg/dL
--- NOTE | 2020-09-12 13:27 | Progress Note ---
Assessment and Plan Acute hypoxemic respiratory failure, on mechanical ventilatory support. COVID-19 infection. Bilateral pneumonia versus pulmonary edema. Severe sepsis with shock. Peripheral vascular disease. Anemia that is microcytic. History of alcohol abuse. Acute encephalopathy. History of obesity. History of coronary artery disease. History of gout. Hyperlipidemia. Hypertension, now hypotensive. Left lower extremity / left foot ulcer. - PRBC transfusion ordered - increased Lantus to 20 units SQ BID - continue Free water flushes increased at 300 mls q4h - complete 1/2 NS @ 75 mls/hr X 2 liters re: azotemia and hypernatremia - continue current vent settings - continue daily SAT and SBT assessment as tolerated - continue to wean supplemental oxygen for target O2 sat's > 92% acutely - continue care as below otherwise; - VAP bundle addressed - continue lung protective strategies - continue bronchodilators with pulmonary hygiene per RT - wean per pulmonary driven protocols otherwise - continue accuchecks with glycemic control per SSI (While critically ill target blood glucose of 140-180 mg/dL; avoid hypoglycemia) - sedation prn for target RASS 0 to -1 - avoid nephrotoxins, renally dose all medications - accuchecks with glycemic control per SSI (While critically ill target blood glucose of 140-180 mg/dL; avoid hypoglycemia) - avoid benzodiazepine's, reduce the possibility of delirium - complete AB's per ID rec's - prn analgesia per CPOT score - Maintenance of sleep-wake cycle, avoid delirium - enteral nutritional support at goal rate as tolerated - G.I. & VTE prophylaxis - PT/OT/ROM exercises - continue mobility protocols for pressure ulcer prophylaxis - Monitor hemodynamics closely - continue other care per attending / other consultants - discharge planning ongoing concurrently COVID SPECIFIC INTERVENTIONS - completed Remdesivir as per ID/Pulmonary developed protocols - continue systemic steroids for severe COVID-19 infection empirically - follow repeat COVID tests results - zinc and vitamin C supplementation - Monitor inflammatory markers per facility protocol - ferritin, Ddimer, CRP - therapeutic anticoagulation per system Protocol based on d-dimer and clinical considerations - Continue contact and airborne isolation .... Re-evaluate in am & prn CONDITION: CRITICAL PROGNOSIS: GUARDED CODE STATUS: FULL CODE The high probability of a clinically significant, sudden or life-threatening deterioration of the [respiratory, cardiovascular, renal & neurologic] system(s) required my full and direct attention, intervention and personal management. The aggregate critical care time was [34] minutes without overlap. Time includes spent on; [x] Data Review and interpretation [x] Patient assessment and monitoring of vital signs [x] Documentation [x] Medication orders and management Subjective Date of service: 09/12/20 Principal diagnosis: Ac hypoxemic resp failure; COVID-19; Pneumonia; Sepsis; PVD; L. foot ulcer Interval history: Patient is seen today for: Acute hypoxemic respiratory failure; COVID-19 infection; Bilateral pneumonia versus pulmonary edema; Severe sepsis with shock; Peripheral vascular disease; Acute encephalopathy; Left lower extremity / left foot ulcer. Seen and examined at bedside; 24hour events reviewed; nursing and respiratory care staff consulted; no adverse overnight events reported to me; resting peacefully in bed; remains on MVS; AMS is persistent; FiO2 at 55% but O2 sat's 100%; tolerating tube feeds; blood sugars running high still and serm Hb is 6.6 Objective Vital Signs - 12hr 09/12/20 09/12/20 09/12/20 01:31 01:45 02:01 Temperature Pulse Rate 69 68 65 Pulse Rate [ From Monitor] Respiratory 22 Rate Blood Pressure 144/57 151/55 117/53 O2 Sat by Pulse 96 96 94 Oximetry 09/12/20 09/12/20 09/12/20 02:15 02:30 02:45 Temperature Pulse Rate 70 67 72 Pulse Rate [ From Monitor] Respiratory 22 23 Rate Blood Pressure 111/52 122/56 115/60 O2 Sat by Pulse 95 95 94 Oximetry 09/12/20 09/12/20 09/12/20 03:00 03:15 03:31 Temperature Pulse Rate 71 67 65 Pulse Rate [ From Monitor] Respiratory 22 23 Rate Blood Pressure 110/51 119/59 116/55 O2 Sat by Pulse 96 94 Oximetry 09/12/20 09/12/20 09/12/20 03:45 04:00 04:06 Temperature 99.7 F H Pulse Rate 69 66 65 Pulse Rate [ 62 From Monitor] Respiratory 21 Rate Blood Pressure 120/56 129/57 129/57 O2 Sat by Pulse 95 95 95 Oximetry 09/12/20 09/12/20 09/12/20 04:15 04:30 04:45 Temperature Pulse Rate 65 65 65 Pulse Rate [ From Monitor] Respiratory 22 22 Rate Blood Pressure 132/63 140/59 130/58 O2 Sat by Pulse 95 95 96 Oximetry 09/12/20 09/12/20 09/12/20 05:00 05:15 05:30 Temperature Pulse Rate 70 69 65 Pulse Rate [ From Monitor] Respiratory 22 22 22 Rate Blood Pressure 140/62 117/55 124/60 O2 Sat by Pulse 96 95 95 Oximetry 09/12/20 09/12/20 09/12/20 05:45 06:00 06:15 Temperature Pulse Rate 68 65 67 Pulse Rate [ From Monitor] Respiratory 22 22 22 Rate Blood Pressure 134/60 136/59 129/65 O2 Sat by Pulse 96 95 Oximetry 09/12/20 09/12/20 09/12/20 06:30 06:45 07:00 Temperature Pulse Rate 64 71 71 Pulse Rate [ From Monitor] Respiratory 22 22 22 Rate Blood Pressure 137/55 128/57 139/55 O2 Sat by Pulse 95 95 96 Oximetry 09/12/20 09/12/20 09/12/20 07:10 07:15 07:30 Temperature Pulse Rate 64 67 64 Pulse Rate [ From Monitor] Respiratory 22 22 Rate Blood Pressure 137/55 134/56 129/57 O2 Sat by Pulse 95 97 96 Oximetry 09/12/20 09/12/20 09/12/20 07:45 08:00 08:15 Temperature 98 F Pulse Rate 67 65 70 Pulse Rate [ 65 From Monitor] Respiratory 22 19 22 Rate Blood Pressure 145/64 156/65 156/65 O2 Sat by Pulse 99 98 99 Oximetry 09/12/20 09/12/20 09/12/20 08:30 08:45 09:00 Temperature Pulse Rate 72 78 78 Pulse Rate [ From Monitor] Respiratory 22 13 13 Rate Blood Pressure 151/61 140/64 144/62 O2 Sat by Pulse 99 99 98 Oximetry 09/12/20 09/12/20 09/12/20 09:15 09:30 09:45 Temperature Pulse Rate 72 87 71 Pulse Rate [ From Monitor] Respiratory 22 8 L 15 Rate Blood Pressure 146/58 148/69 135/65 O2 Sat by Pulse 99 99 98 Oximetry 09/12/20 09/12/20 09/12/20 10:00 10:15 10:31 Temperature Pulse Rate 64 70 70 Pulse Rate [ From Monitor] Respiratory 22 18 18 Rate Blood Pressure 128/61 126/57 126/65 O2 Sat by Pulse 99 99 99 Oximetry 09/12/20 09/12/20 09/12/20 10:45 11:00 11:55 Temperature Pulse Rate 76 71 71 Pulse Rate [ From Monitor] Respiratory 21 15 Rate Blood Pressure 124/64 122/54 122/54 O2 Sat by Pulse 98 98 98 Oximetry Constitutional: no acute distress, other (elderly obese male without increased respiratory effort at rest on MVS) Eyes: non-icteric ENT: oropharynx moist, other (ETT 24 cm MONICA) Neck: supple, no lymphadenopathy, no JVD Effort: normal Ascultation: Bilateral: diminished breath sounds, rhonchi Percussion: Bilateral: not dull Cardiovascular: regular rate and rhythm Gastrointestinal: normoactive bowel sounds, soft, non-tender, non-distended (protuberant) Integumentary: normal (in areas i examined; please see [facility] notes for full description) Extremities: no cyanosis, pink and warm, pulses normal, no ischemia or petechiae Neurologic: non-focal exam (grossly), pupils equal and round, other (lethargic) Psychiatric: other (unable to assess) CBC and BMP: 09/12/20 06:01 09/12/20 06:01 ABG, PT/INR, D-dimer: ABG ABG pH 7.427 pH Units (7.350-7.450) 09/12/20 03:40 POC ABG pCO2 49.3 mmHg (32.0-48.0) H 09/11/20 04:55 ABG pCO2 48.6 mm Hg 09/12/20 03:40 POC ABG pO2 78.2 mmHg (83-108) L 09/11/20 04:55 ABG pO2 77.1 mm Hg (80.0-90.0) L 09/12/20 03:40 POC ABG HCO3 31.1 09/11/20 04:55 ABG O2 Saturation 97.2 % (95.0-99.0) 09/12/20 03:40 PT/INR, D-dimer PT 15.5 Sec. (12.2-14.9) H 09/02/20 15:55 INR 1.23 (0.87-1.13) H 09/02/20 15:55 D-Dimer 1449.12 ng/mlDDU (0-234) H 09/08/20 19:15 Abnormal lab findings: Abnormal Labs 08/15/20 08/15/20 08/15/20 08:49 10:40 10:40 WBC RBC 2.96 L Hgb 9.0 L Hct 25.8 L MCV MCH MCHC 35 H RDW 16.2 H Lymph % (Auto) [place] % (Auto) Eos % (Auto) Lymph # (Auto) Seg Neutrophils % Seg Neutrophils # PT INR APTT D-Dimer Heparin Anti-Xa Level ABG pH POC ABG pCO2 POC ABG pO2 ABG pO2 ABG HCO3 ABG O2 Saturation ABG Base Excess ABG Hemoglobin ABG Oxyhemoglobin ABG Sodium ABG Potassium ABG Chloride ABG Glucose Carboxyhemoglobin Sodium Potassium Chloride Carbon Dioxide BUN Creatinine 0.7 L Glucose 188 H POC Glucose 212 H Calcium 8.3 L Magnesium Ferritin AST Alkaline Phosphatase Lactate Dehydrogenase C-Reactive Protein Total Protein Albumin Arterial Blood Glucose Arterial Blood Ionized Calcium Urine WBC (Auto) Coronavirus (PCR) 08/15/20 08/15/20 08/16/20 14:00 Unknown 04:43 WBC RBC 3.28 L Hgb 9.6 L Hct 29.3 L MCV MCH MCHC RDW 16.6 H Lymph % (Auto) [place] % (Auto) Eos % (Auto) 4.9 H Lymph # (Auto) Seg Neutrophils % Seg Neutrophils # PT INR APTT D-Dimer Heparin Anti-Xa Level ABG pH POC ABG pCO2 POC ABG pO2 ABG pO2 ABG HCO3 ABG O2 Saturation ABG Base Excess ABG Hemoglobin ABG Oxyhemoglobin ABG Sodium ABG Potassium ABG Chloride ABG Glucose Carboxyhemoglobin Sodium Potassium Chloride Carbon Dioxide BUN 8 L Creatinine 0.6 L Glucose 115 H POC Glucose Calcium Magnesium Ferritin AST Alkaline Phosphatase Lactate Dehydrogenase C-Reactive Protein Total Protein Albumin Arterial Blood Glucose Arterial Blood Ionized Calcium Urine WBC (Auto) 31.0 H Coronavirus (PCR) 08/16/20 08/18/20 08/20/20 04:43 15:17 07:12 WBC RBC Hgb 9.1 L Hct 27.2 L MCV MCH MCHC RDW Lymph % (Auto) [place] % (Auto) Eos % (Auto) Lymph # (Auto) Seg Neutrophils % Seg Neutrophils # PT INR APTT D-Dimer Heparin Anti-Xa Level ABG pH POC ABG pCO2 POC ABG pO2 ABG pO2 ABG HCO3 ABG O2 Saturation ABG Base Excess ABG Hemoglobin ABG Oxyhemoglobin ABG Sodium ABG Potassium ABG Chloride ABG Glucose Carboxyhemoglobin Sodium 135 L Potassium Chloride 97.5 L Carbon Dioxide BUN Creatinine 0.5 L Glucose 153 H 135 H POC Glucose Calcium Magnesium Ferritin AST Alkaline Phosphatase Lactate Dehydrogenase C-Reactive Protein Total Protein Albumin Arterial Blood Glucose Arterial Blood Ionized Calcium Urine WBC (Auto) Coronavirus (PCR) 08/20/20 08/20/20 08/20/20 07:12 07:12 08:07 WBC RBC Hgb Hct MCV MCH MCHC RDW Lymph % (Auto) [place] % (Auto) Eos % (Auto) Lymph # (Auto) Seg Neutrophils % Seg Neutrophils # PT INR 1.15 H APTT D-Dimer Heparin Anti-Xa Level ABG pH POC ABG pCO2 POC ABG pO2 ABG pO2 ABG HCO3 ABG O2 Saturation ABG Base Excess ABG Hemoglobin ABG Oxyhemoglobin ABG Sodium ABG Potassium ABG Chloride ABG Glucose Carboxyhemoglobin Sodium Potassium Chloride Carbon Dioxide BUN Creatinine Glucose 113 H POC Glucose 108 H Calcium Magnesium Ferritin AST Alkaline Phosphatase Lactate Dehydrogenase C-Reactive Protein Total Protein Albumin Arterial Blood Glucose Arterial Blood Ionized Calcium Urine WBC (Auto) Coronavirus (PCR) 08/20/20 08/20/20 08/21/20 16:32 22:34 07:42 WBC RBC Hgb Hct MCV MCH MCHC RDW Lymph % (Auto) [place] % (Auto) Eos % (Auto) Lymph # (Auto) Seg Neutrophils % Seg Neutrophils # PT INR APTT D-Dimer Heparin Anti-Xa Level ABG pH POC ABG pCO2 POC ABG pO2 ABG pO2 ABG HCO3 ABG O2 Saturation ABG Base Excess ABG Hemoglobin ABG Oxyhemoglobin ABG Sodium ABG Potassium ABG Chloride ABG Glucose Carboxyhemoglobin Sodium Potassium Chloride Carbon Dioxide BUN Creatinine Glucose POC Glucose 107 H 139 H 115 H Calcium Magnesium Ferritin AST Alkaline Phosphatase Lactate Dehydrogenase C-Reactive Protein Total Protein Albumin Arterial Blood Glucose Arterial Blood Ionized Calcium Urine WBC (Auto) Coronavirus (PCR) 08/21/20 08/21/20 08/21/20 08:14 08:14 11:31 WBC RBC 3.08 L Hgb 8.9 L Hct 27.0 L MCV MCH MCHC RDW 16.7 H Lymph % (Auto) [place] % (Auto) Eos % (Auto) Lymph # (Auto) Seg Neutrophils % Seg Neutrophils # PT INR APTT D-Dimer Heparin Anti-Xa Level ABG pH POC ABG pCO2 POC ABG pO2 ABG pO2 ABG HCO3 ABG O2 Saturation ABG Base Excess ABG Hemoglobin ABG Oxyhemoglobin ABG Sodium ABG Potassium ABG Chloride ABG Glucose Carboxyhemoglobin Sodium 136 L Potassium Chloride Carbon Dioxide BUN Creatinine Glucose 129 H POC Glucose 132 H Calcium Magnesium Ferritin AST Alkaline Phosphatase Lactate Dehydrogenase C-Reactive Protein Total Protein Albumin Arterial Blood Glucose Arterial Blood Ionized Calcium Urine WBC (Auto) Coronavirus (PCR) 08/24/20 08/25/20 08/26/20 10:57 18:39 11:57 WBC RBC Hgb Hct MCV MCH MCHC RDW Lymph % (Auto) [place] % (Auto) Eos % (Auto) Lymph # (Auto) Seg Neutrophils % Seg Neutrophils # PT INR APTT D-Dimer Heparin Anti-Xa Level ABG pH POC ABG pCO2 POC ABG pO2 ABG pO2 ABG HCO3 ABG O2 Saturation ABG Base Excess ABG Hemoglobin ABG Oxyhemoglobin ABG Sodium ABG Potassium ABG Chloride ABG Glucose Carboxyhemoglobin Sodium Potassium Chloride Carbon Dioxide BUN Creatinine Glucose POC Glucose 126 H 120 H 127 H Calcium Magnesium Ferritin AST Alkaline Phosphatase Lactate Dehydrogenase C-Reactive Protein Total Protein Albumin Arterial Blood Glucose Arterial Blood Ionized Calcium Urine WBC (Auto) Coronavirus (PCR) 08/26/20 08/26/20 08/28/20 18:44 23:31 19:34 WBC RBC 3.09 L Hgb 8.7 L Hct 25.5 L MCV 82 L MCH MCHC RDW 17.1 H Lymph % (Auto) [place] % (Auto) 9.1 H Eos % (Auto) Lymph # (Auto) 0.8 L Seg Neutrophils % 71.7 H Seg Neutrophils # PT INR APTT D-Dimer Heparin Anti-Xa Level ABG pH POC ABG pCO2 POC ABG pO2 ABG pO2 ABG HCO3 ABG O2 Saturation ABG Base Excess ABG Hemoglobin ABG Oxyhemoglobin ABG Sodium ABG Potassium ABG Chloride ABG Glucose Carboxyhemoglobin Sodium Potassium Chloride Carbon Dioxide BUN Creatinine Glucose POC Glucose 125 H 115 H Calcium Magnesium Ferritin AST Alkaline Phosphatase Lactate Dehydrogenase C-Reactive Protein Total Protein Albumin Arterial Blood Glucose Arterial Blood Ionized Calcium Urine WBC (Auto) Coronavirus (PCR) 08/28/20 08/28/20 08/29/20 19:34 22:16 08:06 WBC RBC Hgb Hct MCV MCH MCHC RDW Lymph % (Auto) [place] % (Auto) Eos % (Auto) Lymph # (Auto) Seg Neutrophils % Seg Neutrophils # PT INR APTT D-Dimer Heparin Anti-Xa Level ABG pH POC ABG pCO2 POC ABG pO2 ABG pO2 ABG HCO3 ABG O2 Saturation ABG Base Excess ABG Hemoglobin ABG Oxyhemoglobin ABG Sodium ABG Potassium ABG Chloride ABG Glucose Carboxyhemoglobin Sodium 130 L Potassium 2.6 L* Chloride 96.4 L Carbon Dioxide BUN Creatinine Glucose 119 H POC Glucose 110 H 119 H Calcium 7.8 L Magnesium Ferritin AST Alkaline Phosphatase Lactate Dehydrogenase C-Reactive Protein Total Protein Albumin Arterial Blood Glucose Arterial Blood Ionized Calcium Urine WBC (Auto) Coronavirus (PCR) 08/29/20 08/29/20 08/29/20 12:13 16:37 17:38 WBC RBC Hgb Hct MCV MCH MCHC RDW Lymph % (Auto) [place] % (Auto) Eos % (Auto) Lymph # (Auto) Seg Neutrophils % Seg Neutrophils # PT INR APTT D-Dimer Heparin Anti-Xa Level ABG pH POC ABG pCO2 POC ABG pO2 ABG pO2 ABG HCO3 ABG O2 Saturation ABG Base Excess ABG Hemoglobin ABG Oxyhemoglobin ABG Sodium ABG Potassium ABG Chloride ABG Glucose Carboxyhemoglobin Sodium 133 L Potassium 3.0 L Chloride 97.9 L Carbon Dioxide 21 L BUN Creatinine Glucose 111 H POC Glucose 109 H 106 H Calcium 8.3 L Magnesium 1.30 L Ferritin AST Alkaline Phosphatase Lactate Dehydrogenase C-Reactive Protein Total Protein Albumin Arterial Blood Glucose Arterial Blood Ionized Calcium Urine WBC (Auto) Coronavirus (PCR) 08/29/20 08/29/20 08/29/20 19:21 19:21 19:21 WBC RBC Hgb Hct MCV MCH MCHC RDW Lymph % (Auto) [place] % (Auto) Eos % (Auto) Lymph # (Auto) Seg Neutrophils % Seg Neutrophils # PT INR APTT D-Dimer 688.12 H Heparin Anti-Xa Level ABG pH POC ABG pCO2 POC ABG pO2 ABG pO2 ABG HCO3 ABG O2 Saturation ABG Base Excess ABG Hemoglobin ABG Oxyhemoglobin ABG Sodium ABG Potassium ABG Chloride ABG Glucose Carboxyhemoglobin Sodium Potassium 3.1 L Chloride Carbon Dioxide BUN Creatinine Glucose POC Glucose Calcium Magnesium 1.50 L Ferritin 1476.0 H AST Alkaline Phosphatase Lactate Dehydrogenase C-Reactive Protein Total Protein Albumin Arterial Blood Glucose Arterial Blood Ionized Calcium Urine WBC (Auto) Coronavirus (PCR) 08/29/20 08/29/20 08/31/20 19:21 Unknown 04:30 WBC RBC 3.12 L Hgb 9.1 L Hct 25.7 L MCV 83 L MCH MCHC 35 H RDW 17.4 H Lymph % (Auto) [place] % (Auto) 9.4 H Eos % (Auto) Lymph # (Auto) Seg Neutrophils % Seg Neutrophils # PT INR APTT D-Dimer Heparin Anti-Xa Level ABG pH POC ABG pCO2 POC ABG pO2 ABG pO2 ABG HCO3 ABG O2 Saturation ABG Base Excess ABG Hemoglobin ABG Oxyhemoglobin ABG Sodium ABG Potassium ABG Chloride ABG Glucose Carboxyhemoglobin Sodium Potassium Chloride Carbon Dioxide BUN Creatinine Glucose POC Glucose Calcium Magnesium Ferritin AST Alkaline Phosphatase Lactate Dehydrogenase 373 H C-Reactive Protein 18.30 H Total Protein Albumin Arterial Blood Glucose Arterial Blood Ionized Calcium Urine WBC (Auto) Coronavirus (PCR) Positive A 08/31/20 09/02/20 09/02/20 04:30 06:28 06:49 WBC RBC Hgb Hct MCV MCH MCHC RDW Lymph % (Auto) [place] % (Auto) Eos % (Auto) Lymph # (Auto) Seg Neutrophils % Seg Neutrophils # PT INR APTT D-Dimer Heparin Anti-Xa Level ABG pH POC ABG pCO2 26.2 L POC ABG pO2 82.2 L ABG pO2 ABG HCO3 ABG O2 Saturation ABG Base Excess ABG Hemoglobin 10.1 L ABG Oxyhemoglobin ABG Sodium 134.5 L ABG Potassium 3.2 L ABG Chloride ABG Glucose 127 H Carboxyhemoglobin 0.3 L Sodium 134 L Potassium 3.4 L Chloride Carbon Dioxide BUN Creatinine Glucose 129 H POC Glucose 109 H Calcium 8.0 L Magnesium Ferritin AST Alkaline Phosphatase Lactate Dehydrogenase C-Reactive Protein Total Protein Albumin Arterial Blood Glucose 127 H Arterial Blood Ionized Calcium 4.5 L Urine WBC (Auto) Coronavirus (PCR) 09/02/20 09/02/20 09/02/20 11:32 15:55 15:55 WBC RBC Hgb Hct MCV MCH MCHC RDW Lymph % (Auto) [place] % (Auto) Eos % (Auto) Lymph # (Auto) Seg Neutrophils % Seg Neutrophils # PT 15.5 H INR 1.23 H APTT 50.2 H D-Dimer 2186.40 H Heparin Anti-Xa Level ABG pH POC ABG pCO2 POC ABG pO2 ABG pO2 ABG HCO3 ABG O2 Saturation ABG Base Excess ABG Hemoglobin ABG Oxyhemoglobin ABG Sodium ABG Potassium ABG Chloride ABG Glucose Carboxyhemoglobin Sodium Potassium Chloride Carbon Dioxide 21 L BUN 30 H Creatinine 1.6 H Glucose 125 H POC Glucose 112 H Calcium 7.8 L Magnesium Ferritin AST Alkaline Phosphatase Lactate Dehydrogenase C-Reactive Protein Total Protein Albumin Arterial Blood Glucose Arterial Blood Ionized Calcium Urine WBC (Auto) Coronavirus (PCR) 09/02/20 09/02/20 09/02/20 15:55 15:55 17:34 WBC 11.2 H RBC 2.94 L Hgb 8.1 L Hct 24.3 L MCV 83 L MCH 27 L MCHC RDW 17.7 H Lymph % (Auto) 12.7 L [place] % (Auto) Eos % (Auto) Lymph # (Auto) Seg Neutrophils % 82.5 H Seg Neutrophils # 9.3 H PT INR APTT D-Dimer Heparin Anti-Xa Level ABG pH POC ABG pCO2 POC ABG pO2 ABG pO2 ABG HCO3 ABG O2 Saturation ABG Base Excess ABG Hemoglobin ABG Oxyhemoglobin ABG Sodium ABG Potassium ABG Chloride ABG Glucose Carboxyhemoglobin Sodium Potassium Chloride Carbon Dioxide BUN Creatinine Glucose POC Glucose 127 H Calcium Magnesium Ferritin 1892.0 H AST Alkaline Phosphatase Lactate Dehydrogenase C-Reactive Protein Total Protein Albumin Arterial Blood Glucose Arterial Blood Ionized Calcium Urine WBC (Auto) Coronavirus (PCR) 09/03/20 09/03/20 09/03/20 07:13 16:40 23:40 WBC RBC Hgb Hct MCV MCH MCHC RDW Lymph % (Auto) [place] % (Auto) Eos % (Auto) Lymph # (Auto) Seg Neutrophils % Seg Neutrophils # PT INR APTT D-Dimer Heparin Anti-Xa Level 0.88 H ABG pH POC ABG pCO2 POC ABG pO2 ABG pO2 ABG HCO3 ABG O2 Saturation ABG Base Excess ABG Hemoglobin ABG Oxyhemoglobin ABG Sodium ABG Potassium ABG Chloride ABG Glucose Carboxyhemoglobin Sodium Potassium 3.2 L Chloride 109.7 H Carbon Dioxide BUN 24 H Creatinine Glucose 142 H POC Glucose 220 H Calcium 8.2 L Magnesium Ferritin AST 75 H Alkaline Phosphatase Lactate Dehydrogenase C-Reactive Protein Total Protein 5.8 L Albumin 2.7 L Arterial Blood Glucose Arterial Blood Ionized Calcium Urine WBC (Auto) Coronavirus (PCR) 09/04/20 09/04/20 09/04/20 07:25 07:25 11:57 WBC RBC Hgb 9.0 L Hct 27.9 L MCV MCH MCHC RDW Lymph % (Auto) [place] % (Auto) Eos % (Auto) Lymph # (Auto) Seg Neutrophils % Seg Neutrophils # PT INR APTT D-Dimer Heparin Anti-Xa Level ABG pH POC ABG pCO2 POC ABG pO2 ABG pO2 ABG HCO3 ABG O2 Saturation ABG Base Excess ABG Hemoglobin ABG Oxyhemoglobin ABG Sodium ABG Potassium ABG Chloride ABG Glucose Carboxyhemoglobin Sodium 148 H Potassium Chloride 116.9 H Carbon Dioxide BUN Creatinine Glucose 129 H POC Glucose 113 H Calcium Magnesium Ferritin AST 93 H Alkaline Phosphatase 134 H Lactate Dehydrogenase C-Reactive Protein Total Protein 6.0 L Albumin 2.6 L Arterial Blood Glucose Arterial Blood Ionized Calcium Urine WBC (Auto) Coronavirus (PCR) 09/05/20 09/05/20 09/05/20 06:24 07:17 13:38 WBC RBC Hgb Hct MCV MCH MCHC RDW Lymph % (Auto) [place] % (Auto) Eos % (Auto) Lymph # (Auto) Seg Neutrophils % Seg Neutrophils # PT INR APTT D-Dimer Heparin Anti-Xa Level ABG pH 7.218 L POC ABG pCO2 66.0 H POC ABG pO2 45.8 L 79.1 L ABG pO2 ABG HCO3 ABG O2 Saturation ABG Base Excess ABG Hemoglobin 10.7 L 9.6 L ABG Oxyhemoglobin 74.5 L ABG Sodium 146.5 H 145.4 H ABG Potassium ABG Chloride 115.0 H 117.0 H ABG Glucose 146 H 106 H Carboxyhemoglobin 0.1 L 0 L Sodium 152 H Potassium Chloride 115.9 H Carbon Dioxide BUN Creatinine Glucose 134 H POC Glucose Calcium Magnesium Ferritin AST 69 H Alkaline Phosphatase 168 H Lactate Dehydrogenase C-Reactive Protein Total Protein 5.4 L Albumin 2.7 L Arterial Blood Glucose 146 H 106 H Arterial Blood Ionized Calcium Urine WBC (Auto) Coronavirus (PCR) 09/05/20 09/06/20 09/06/20 17:27 04:15 07:29 WBC RBC Hgb 7.8 L Hct 24.0 L MCV MCH MCHC RDW Lymph % (Auto) [place] % (Auto) Eos % (Auto) Lymph # (Auto) Seg Neutrophils % Seg Neutrophils # PT INR APTT D-Dimer Heparin Anti-Xa Level ABG pH POC ABG pCO2 POC ABG pO2 ABG pO2 184.9 H ABG HCO3 19.9 L ABG O2 Saturation 99.2 H ABG Base Excess -3.5 L ABG Hemoglobin 8.9 L ABG Oxyhemoglobin ABG Sodium ABG Potassium ABG Chloride ABG Glucose Carboxyhemoglobin Sodium Potassium Chloride Carbon Dioxide BUN Creatinine Glucose POC Glucose 124 H Calcium Magnesium Ferritin AST Alkaline Phosphatase Lactate Dehydrogenase C-Reactive Protein Total Protein Albumin Arterial Blood Glucose Arterial Blood Ionized Calcium Urine WBC (Auto) Coronavirus (PCR) 09/06/20 09/06/20 09/06/20 07:29 07:29 12:02 WBC 11.3 H RBC 2.83 L Hgb 7.8 L Hct 24.3 L MCV MCH MCHC RDW 17.7 H Lymph % (Auto) [place] % (Auto) Eos % (Auto) Lymph # (Auto) Seg Neutrophils % Seg Neutrophils # PT INR APTT D-Dimer Heparin Anti-Xa Level ABG pH POC ABG pCO2 POC ABG pO2 ABG pO2 ABG HCO3 ABG O2 Saturation ABG Base Excess ABG Hemoglobin ABG Oxyhemoglobin ABG Sodium ABG Potassium ABG Chloride ABG Glucose Carboxyhemoglobin Sodium 151 H Potassium Chloride 117.6 H Carbon Dioxide BUN 24 H Creatinine Glucose 159 H POC Glucose 158 H Calcium 7.7 L Magnesium Ferritin AST Alkaline Phosphatase Lactate Dehydrogenase C-Reactive Protein Total Protein Albumin Arterial Blood Glucose Arterial Blood Ionized Calcium Urine WBC (Auto) Coronavirus (PCR) 09/07/20 09/08/20 09/08/20 05:21 04:31 04:35 WBC RBC Hgb 7.4 L Hct 22.7 L MCV MCH MCHC RDW Lymph % (Auto) [place] % (Auto) Eos % (Auto) Lymph # (Auto) Seg Neutrophils % Seg Neutrophils # PT INR APTT D-Dimer Heparin Anti-Xa Level ABG pH POC ABG pCO2 49.1 H POC ABG pO2 46.0 L 58.6 L ABG pO2 ABG HCO3 ABG O2 Saturation ABG Base Excess ABG Hemoglobin 8.6 L 7.8 L ABG Oxyhemoglobin 87.7 L ABG Sodium 145.1 H ABG Potassium ABG Chloride 116.0 H 116.0 H ABG Glucose 238 H 255 H Carboxyhemoglobin Sodium Potassium Chloride Carbon Dioxide BUN Creatinine Glucose POC Glucose Calcium Magnesium Ferritin AST Alkaline Phosphatase Lactate Dehydrogenase C-Reactive Protein Total Protein Albumin Arterial Blood Glucose 238 H 255 H Arterial Blood Ionized Calcium Urine WBC (Auto) Coronavirus (PCR) 09/08/20 09/08/20 09/08/20 12:45 17:26 19:15 WBC RBC Hgb Hct MCV MCH MCHC RDW Lymph % (Auto) [place] % (Auto) Eos % (Auto) Lymph # (Auto) Seg Neutrophils % Seg Neutrophils # PT INR APTT D-Dimer Heparin Anti-Xa Level ABG pH POC ABG pCO2 POC ABG pO2 ABG pO2 ABG HCO3 ABG O2 Saturation ABG Base Excess ABG Hemoglobin ABG Oxyhemoglobin ABG Sodium ABG Potassium ABG Chloride ABG Glucose Carboxyhemoglobin Sodium Potassium Chloride Carbon Dioxide BUN Creatinine Glucose POC Glucose 270 H 294 H Calcium Magnesium Ferritin AST Alkaline Phosphatase Lactate Dehydrogenase C-Reactive Protein 4.90 H Total Protein Albumin Arterial Blood Glucose Arterial Blood Ionized Calcium Urine WBC (Auto) Coronavirus (PCR) 09/08/20 09/08/20 09/08/20 19:15 19:15 19:15 WBC RBC Hgb Hct MCV MCH MCHC RDW Lymph % (Auto) [place] % (Auto) Eos % (Auto) Lymph # (Auto) Seg Neutrophils % Seg Neutrophils # PT INR APTT D-Dimer 1449.12 H Heparin Anti-Xa Level ABG pH POC ABG pCO2 POC ABG pO2 ABG pO2 ABG HCO3 ABG O2 Saturation ABG Base Excess ABG Hemoglobin ABG Oxyhemoglobin ABG Sodium ABG Potassium ABG Chloride ABG Glucose Carboxyhemoglobin Sodium Potassium Chloride Carbon Dioxide BUN Creatinine Glucose POC Glucose Calcium Magnesium Ferritin 1485.0 H AST Alkaline Phosphatase Lactate Dehydrogenase 541 H C-Reactive Protein Total Protein Albumin Arterial Blood Glucose Arterial Blood Ionized Calcium Urine WBC (Auto) Coronavirus (PCR) 09/09/20 09/09/20 09/09/20 04:40 12:15 17:36 WBC RBC Hgb Hct MCV MCH MCHC RDW Lymph % (Auto) [place] % (Auto) Eos % (Auto) Lymph # (Auto) Seg Neutrophils % Seg Neutrophils # PT INR APTT D-Dimer Heparin Anti-Xa Level ABG pH POC ABG pCO2 POC ABG pO2 75.1 L ABG pO2 ABG HCO3 ABG O2 Saturation ABG Base Excess ABG Hemoglobin 10.7 L ABG Oxyhemoglobin 93.9 L ABG Sodium 146.7 H ABG Potassium ABG Chloride 113.0 H ABG Glucose 420 H Carboxyhemoglobin 0.2 L Sodium Potassium Chloride Carbon Dioxide BUN Creatinine Glucose POC Glucose 281 H 368 H Calcium Magnesium Ferritin AST Alkaline Phosphatase Lactate Dehydrogenase C-Reactive Protein Total Protein Albumin Arterial Blood Glucose 420 H Arterial Blood Ionized Calcium Urine WBC (Auto) Coronavirus (PCR) 09/10/20 09/10/20 09/10/20 04:45 07:15 11:51 WBC RBC Hgb 7.7 L Hct 24.8 L MCV MCH MCHC RDW Lymph % (Auto) [place] % (Auto) Eos % (Auto) Lymph # (Auto) Seg Neutrophils % Seg Neutrophils # PT INR APTT D-Dimer Heparin Anti-Xa Level ABG pH POC ABG pCO2 POC ABG pO2 ABG pO2 ABG HCO3 ABG O2 Saturation ABG Base Excess ABG Hemoglobin 8.0 L ABG Oxyhemoglobin ABG Sodium 150.8 H ABG Potassium ABG Chloride 117.0 H ABG Glucose 461 H Carboxyhemoglobin Sodium Potassium Chloride Carbon Dioxide BUN Creatinine Glucose POC Glucose 358 H Calcium Magnesium Ferritin AST Alkaline Phosphatase Lactate Dehydrogenase C-Reactive Protein Total Protein Albumin Arterial Blood Glucose 461 H Arterial Blood Ionized Calcium Urine WBC (Auto) Coronavirus (PCR) 09/10/20 09/10/20 09/11/20 17:28 23:29 04:55 WBC RBC Hgb Hct MCV MCH MCHC RDW Lymph % (Auto) [place] % (Auto) Eos % (Auto) Lymph # (Auto) Seg Neutrophils % Seg Neutrophils # PT INR APTT D-Dimer Heparin Anti-Xa Level ABG pH POC ABG pCO2 49.3 H POC ABG pO2 78.2 L ABG pO2 ABG HCO3 ABG O2 Saturation ABG Base Excess ABG Hemoglobin 8.2 L ABG Oxyhemoglobin ABG Sodium 155.0 H ABG Potassium ABG Chloride 120.0 H ABG Glucose 515 H Carboxyhemoglobin Sodium Potassium Chloride Carbon Dioxide BUN Creatinine Glucose POC Glucose 434 H 384 H Calcium Magnesium Ferritin AST Alkaline Phosphatase Lactate Dehydrogenase C-Reactive Protein Total Protein Albumin Arterial Blood Glucose 515 H Arterial Blood Ionized Calcium Urine WBC (Auto) Coronavirus (PCR) 01/09/11/20 09/11/20 05:03 06:10 06:10 WBC 11.1 H RBC 2.55 L Hgb 7.1 L Hct 23.4 L MCV MCH MCHC 30 L RDW 19.6 H Lymph % (Auto) [place] % (Auto) Eos % (Auto) Lymph # (Auto) Seg Neutrophils % Seg Neutrophils # PT INR APTT D-Dimer Heparin Anti-Xa Level ABG pH POC ABG pCO2 POC ABG pO2 ABG pO2 ABG HCO3 ABG O2 Saturation ABG Base Excess ABG Hemoglobin ABG Oxyhemoglobin ABG Sodium ABG Potassium ABG Chloride ABG Glucose Carboxyhemoglobin Sodium 159 H D Potassium Chloride 121.9 H Carbon Dioxide BUN 59 H Creatinine Glucose 530 H* POC Glucose 306 H Calcium 8.2 L Magnesium Ferritin AST Alkaline Phosphatase Lactate Dehydrogenase C-Reactive Protein Total Protein Albumin Arterial Blood Glucose Arterial Blood Ionized Calcium Urine WBC (Auto) Coronavirus (PCR) 09/11/20 09/11/20 09/11/20 08:12 12:13 17:04 WBC RBC Hgb Hct MCV MCH MCHC RDW Lymph % (Auto) [place] % (Auto) Eos % (Auto) Lymph # (Auto) Seg Neutrophils % Seg Neutrophils # PT INR APTT D-Dimer Heparin Anti-Xa Level ABG pH POC ABG pCO2 POC ABG pO2 ABG pO2 ABG HCO3 ABG O2 Saturation ABG Base Excess ABG Hemoglobin ABG Oxyhemoglobin ABG Sodium ABG Potassium ABG Chloride ABG Glucose Carboxyhemoglobin Sodium Potassium Chloride Carbon Dioxide BUN Creatinine Glucose 526 H* POC Glucose 374 H 398 H Calcium Magnesium Ferritin AST Alkaline Phosphatase Lactate Dehydrogenase C-Reactive Protein Total Protein Albumin Arterial Blood Glucose Arterial Blood Ionized Calcium Urine WBC (Auto) Coronavirus (PCR) 09/11/20 09/12/20 09/12/20 23:39 03:40 05:42 WBC RBC Hgb Hct MCV MCH MCHC RDW Lymph % (Auto) [place] % (Auto) Eos % (Auto) Lymph # (Auto) Seg Neutrophils % Seg Neutrophils # PT INR APTT D-Dimer Heparin Anti-Xa Level ABG pH POC ABG pCO2 POC ABG pO2 ABG pO2 77.1 L ABG HCO3 31.3 H ABG O2 Saturation ABG Base Excess 6.4 H ABG Hemoglobin 5.4 L ABG Oxyhemoglobin ABG Sodium ABG Potassium ABG Chloride ABG Glucose Carboxyhemoglobin Sodium Potassium Chloride Carbon Dioxide BUN Creatinine Glucose POC Glucose 355 H 286 H Calcium Magnesium Ferritin AST Alkaline Phosphatase Lactate Dehydrogenase C-Reactive Protein Total Protein Albumin Arterial Blood Glucose Arterial Blood Ionized Calcium Urine WBC (Auto) Coronavirus (PCR) 09/12/20 09/12/20 09/12/20 06:01 06:01 11:22 WBC RBC 2.36 L Hgb 6.6 L Hct 21.7 L MCV MCH MCHC 31 L RDW 19.9 H Lymph % (Auto) 8.5 L [place] % (Auto) Eos % (Auto) Lymph # (Auto) 0.8 L Seg Neutrophils % 86.6 H Seg Neutrophils # 8.5 H PT INR APTT D-Dimer Heparin Anti-Xa Level ABG pH POC ABG pCO2 POC ABG pO2 ABG pO2 ABG HCO3 ABG O2 Saturation ABG Base Excess ABG Hemoglobin ABG Oxyhemoglobin ABG Sodium ABG Potassium ABG Chloride ABG Glucose Carboxyhemoglobin Sodium 153 H Potassium Chloride 117.7 H Carbon Dioxide 32 H BUN 46 H Creatinine 0.7 L Glucose 358 H POC Glucose 350 H Calcium 7.3 L Magnesium Ferritin AST Alkaline Phosphatase Lactate Dehydrogenase C-Reactive Protein Total Protein Albumin Arterial Blood Glucose Arterial Blood Ionized Calcium Urine WBC (Auto) Coronavirus (PCR) Chest x-ray: other (none today) Allied health notes reviewed: nursing
[2020-09-12] MEDS: INSULIN GLARGINE 100 UNITS/ML SUB-Q SCH (17:22)
[2020-09-13] MEDS: INSULIN LISPRO 100 UNIT/ML VIAL 3 mL SUB-Q SCH ×5 (00:07→23:40)
--- NOTE | 2020-09-13 08:17 | Progress Note ---
Assessment and Plan Assessment and plan: 64 YO Male HD #26 with PVD, Coronavirus Infection, Acute Respiratory Failure, Sepsis, Pneumonia, Toxic Encephalopathy, Necrosis of Surgical wound. Patient resting in bed. No acute decompensation overnight. No improvement overnight. Patient remains critically ill. Patient prognosis is poor to guarded. 09/10: Significant elevated blood sugar. Patient with labile blood sugar issues. Aspiration precautions continue vent weaning per supervisor paper coating. Continue antibiotics management. Patient with noted hypernatremia we will continue to monitor sodium levels. Also with anemia of chronic disease we will monitor H&H closely. 09/11; Patient remains critically ill, continue wound care, monitor and adjust insulin for better control. 09/12: Noted Anemia, Will give 2 units PRBC. Continue supportive care, wean from vent as tolerated, Continue to monitor sodium level. IR input noted, adjust further insulin 09/13: Adjust free water to Q2Hr, monitor H/H, Check labs, continue supportive care. Insulin further adjusted for better control (1) severe sepsis with shock Current Visit: Yes Status: Acute Plan to address problem: Sepsis protocol: CBC, CMP, IV fluid resuscitation therapy as clinically indicated, IV antibiotic therapy, monitor urine output every shift, maintain mean arterial blood pressure greater than or equal to 65, (2) Acute hypoxemic respiratory failure Current Visit: Yes Status: Acute Plan to address problem: Wean vent as tolerated, daily ABG, spontaneous breathing trial daily, chest x- ray, sedation holiday, supportive care. (3) Necrosis of surgical wound Current Visit: Yes Status: Acute Plan to address problem: Surgery team consulted. pain control, supportive care. Further care as per vascular surgery team. (4) CHF (congestive heart failure) Current Visit: No Status: Chronic Qualifiers: Heart failure chronicity: chronic Plan to address problem: Strict I/O, monitor urine output every shift, daily weight, monitor fluid balance, afterload reduction, blood pressure control. (5) Hypertension Current Visit: Yes Status: Acute Qualifiers: Hypertension type: essential hypertension Qualified Code(s): I10 - Essential (primary) hypertension Plan to address problem: Monitor blood pressure every shift, continue medical management (6) UTI (urinary tract infection) Current Visit: Yes Status: Acute Qualifiers: Encounter type: initial encounter Plan to address problem: CBC, CMP, urinalysis, IV antibiotic therapy. (7) Coronavirus infection Current Visit: Yes Status: Acute Plan to address problem: Coronavirus protocol: IV antibiotic therapy, IV steroid therapy, supplemental oxygen, vitamin C supplementation, zinc supplementation, (8) peripheral vascular disease (9) DVT prophylaxis Current Visit: Yes Status: Acute Plan to address problem: SCD to bilateral lower extremities while in bed, anticoagulation as per surgical team (9) Toxic metabolic encephalopathy Current Visit: Yes Status: Acute Plan to address problem: Supportive care, treat sepsis, (10) Advance care planning Current Visit: Yes Status: Acute Plan to address problem: Disease education conducted, patient is full code, prognosis discussed, care plan discussed, patient knowledges understanding and agreement with care plan, +30 minutes (10) history of alcohol abuse [11] history of gout [12] left lower extremity/left foot ulcer The high probability of a clinically significant, sudden or life threatening deterioration of the [cardiac, pulmonary, renal, infectious disease] system(s) required my full and direct attention, intervention and personal management. The aggregate critical care time was [65] minutes. This time is in addition to time spent performing reported procedures but includes the following: [x] Data Review and interpretation [x] Patient assessment and monitoring of vital signs [x] Documentation [x] Medication orders and management History Interval history: Patient seen and examined remains on full mechanical ventilation Hospitalist Physical - Physical exam Narrative exam: General appearance: Present: Mild distress on full ventilatory support. Limited exam due to PPE conservation during COVID Pandemic - EENT Eyes: Present: miosis ENT: hearing decreased - Neck Neck: Present: supple - Respiratory Respiratory effort: labored Respiratory: bilateral: diminished, rhonchi - Cardiovascular Rhythm: regular Heart Sounds: Present: S1 & S2 - Extremities Extremity abnormal: edema Peripheral Pulses: abnormal (Capillary refill greater than 3.5 seconds) - Abdominal General gastrointestinal: soft, non-tender, non-distended - Integumentary Integumentary: Present: dressing and wound vac to lower ext - Psychiatric Psychiatric: no appropriate mood/affect, no intact judgment & insight, no memory intact - Neurologic Neurologic: CNII-XII intact, no gait normal - Constitutional Vitals: Temp Pulse Resp BP Pulse Ox 99.0 F 94 H 22 158/82 96 09/13/20 03:19 09/13/20 07:54 09/13/20 06:01 09/13/20 07:54 09/13/20 07:54 General appearance: Present: no acute distress, well-nourished Results - Labs CBC & Chem 7: 09/13/20 09:07 09/13/20 09:07 Labs: Laboratory Last Values WBC 9.9 K/mm3 (4.5-11.0) 09/12/20 06:01 RBC 2.36 M/mm3 (3.65-5.03) L 09/12/20 06:01 Hgb 6.6 gm/dl (11.8-15.2) L 09/12/20 06:01 Hct 21.7 % (35.5-45.6) L 09/12/20 06:01 MCV 92 fl (84-94) 09/12/20 06:01 MCH 28 pg (28-32) 09/12/20 06:01 MCHC 31 % (32-34) L 09/12/20 06:01 RDW 19.9 % (13.2-15.2) H 09/12/20 06:01 Plt Count 174 K/mm3 (140-440) 09/12/20 06:01 Lymph % (Auto) 8.5 % (13.4-35.0) L 09/12/20 06:01 [place] % (Auto) 3.7 % (0.0-7.3) 09/12/20 06:01 Eos % (Auto) 0.0 % (0.0-4.3) 09/12/20 06:01 Baso % (Auto) 1.2 % (0.0-1.8) 09/12/20 06:01 Lymph # (Auto) 0.8 K/mm3 (1.2-5.4) L 09/12/20 06:01 [place] # (Auto) 0.4 K/mm3 (0.0-0.8) 09/12/20 06:01 Eos # (Auto) 0.0 K/mm3 (0.0-0.4) 09/12/20 06:01 Baso # (Auto) 0.1 K/mm3 (0.0-0.1) 09/12/20 06:01 Seg Neutrophils % 86.6 % (40.0-70.0) H 09/12/20 06:01 Seg Neutrophils # 8.5 K/mm3 (1.8-7.7) H 09/12/20 06:01 PT 15.5 Sec. (12.2-14.9) H 09/02/20 15:55 INR 1.23 (0.87-1.13) H 09/02/20 15:55 APTT 50.2 Sec. (24.2-36.6) H 09/02/20 15:55 D-Dimer 1449.12 ng/mlDDU (0-234) H 09/08/20 19:15 Heparin Anti-Xa Level 0.47 U.I./ml (0.3-0.7) 09/06/20 07:29 ABG pH 7.471 (7.320-7.450) H 09/13/20 02:09 POC ABG pCO2 46.7 mmHg (32.0-48.0) 09/13/20 02:09 ABG pCO2 48.6 mm Hg 09/12/20 03:40 POC ABG pO2 75.2 mmHg (83-108) L 09/13/20 02:09 ABG pO2 77.1 mm Hg (80.0-90.0) L 09/12/20 03:40 POC ABG HCO3 33.3 09/13/20 02:09 ABG HCO3 31.3 mmol/L (20.0-26.0) H 09/12/20 03:40 ABG O2 Saturation 97.2 % (95.0-99.0) 09/12/20 03:40 ABG O2 Content 7.4 (0.0-44) 09/12/20 03:40 POC ABG Base Excess 8.6 09/13/20 02:09 ABG Base Excess 6.4 mmol/L (-2.0-3.0) H 09/12/20 03:40 ABG Hemoglobin 11.5 (12.0-17.5) L 09/13/20 02:09 ABG Oxyhemoglobin 94 (94-98) 09/13/20 02:09 ABG Carboxyhemoglobin 1.6 % (0.0-5.0) 09/12/20 03:40 ABG Methemoglobin 0.3 (0.0-1.5) 09/13/20 02:09 ABG Sodium 158.8 mmol/L (136.0-145.0) H 09/13/20 02:09 ABG Potassium 4.5 mmol/L (3.40-4.50) 09/13/20 02:09 ABG Chloride 122.0 mmol/L (98-107) H 09/13/20 02:09 ABG Glucose 387 mg/dL (65-95) H 09/13/20 02:09 Oxyhemoglobin 95.4 % (95.0-99.0) 09/12/20 03:40 Carboxyhemoglobin 0.9 (0.5-1.5) 09/13/20 02:09 FiO2 40 09/13/20 02:09 Sodium 153 mmol/L (137-145) H 09/12/20 06:01 Potassium 4.1 mmol/L (3.6-5.0) 09/12/20 06:01 Chloride 117.7 mmol/L (98-107) H 09/12/20 06:01 Carbon Dioxide 32 mmol/L (22-30) H 09/12/20 06:01 Anion Gap 7 mmol/L 09/12/20 06:01 BUN 46 mg/dL (9-20) H 09/12/20 06:01 Creatinine 0.7 mg/dL (0.8-1.3) L 09/12/20 06:01 Estimated GFR > 60 ml/min 09/12/20 06:01 BUN/Creatinine Ratio 66 % 09/12/20 06:01 Glucose 358 mg/dL (75-100) H 09/12/20 06:01 POC Glucose 256 mg/dL (70-105) H 09/13/20 05:08 Lactic Acid 1.40 mmol/L (0.7-2.0) 09/02/20 15:55 Calcium 7.3 mg/dL (8.4-10.2) L 09/12/20 06:01 Magnesium 1.80 mg/dL (1.7-2.3) 08/31/20 04:30 Ferritin 1485.0 ng/mL (30.0-300.0) H 09/08/20 19:15 Total Bilirubin 0.40 mg/dL (0.1-1.2) 09/05/20 07:17 AST 69 units/L (5-40) H 09/05/20 07:17 ALT 28 units/L (7-56) 09/05/20 07:17 Alkaline Phosphatase 168 units/L (35-129) H 09/05/20 07:17 Lactate Dehydrogenase 541 units/L (91-180) H 09/08/20 19:15 C-Reactive Protein 4.90 mg/dL (0.00-1.30) H 09/08/20 19:15 Total Protein 5.4 g/dL (6.3-8.2) L 09/05/20 07:17 Albumin 2.7 g/dL (3.9-5) L 09/05/20 07:17 Albumin/Globulin Ratio 1.0 % 09/05/20 07:17 Procalcitonin 0.16 ng/mL (<0.15) 09/08/20 19:15 Arterial Blood Glucose 387 mg/dL (65-95) H 09/13/20 02:09 Arterial Blood Ionized Calcium 5.0 mg/dL (4.6-5.3) 09/13/20 02:09 Urine Color Yellow (Yellow) 08/15/20 Unknown Urine Turbidity Clear (Clear) 08/15/20 Unknown Urine pH 6.0 (5.0-7.0) 08/15/20 Unknown Ur Specific [place] 1.017 (1.003-1.030) 08/15/20 Unknown Urine Protein 100 mg/dl mg/dL (Negative) 08/15/20 Unknown Urine Glucose (UA) 50 mg/dL (Negative) 08/15/20 Unknown Urine Ketones Neg mg/dL (Negative) 08/15/20 Unknown Urine Blood Lg (Negative) 08/15/20 Unknown Urine Nitrite Neg (Negative) 08/15/20 Unknown Urine Bilirubin Neg (Negative) 08/15/20 Unknown Urine Urobilinogen < 2.0 mg/dL (<2.0) 08/15/20 Unknown Ur Leukocyte Esterase Sm (Negative) 08/15/20 Unknown Urine WBC (Auto) 31.0 /HPF (0.0-6.0) H 08/15/20 Unknown Urine RBC (Auto) 46.0 /HPF (0.0-6.0) 08/15/20 Unknown Urine Mucus Few /HPF 08/15/20 Unknown Nasal Screen MRSA (PCR) Negative (Negative) 09/06/20 12:41 Vancomycin Trough 14.2 ug/mL (5.0-20.0) 09/05/20 11:12 Coronavirus (PCR) Positive (Negative) A 08/29/20 Unknown Blood Type O POSITIVE 09/12/20 13:30 Antibody Screen Negative 09/12/20 13:30 Crossmatch See Detail 09/12/20 13:30 Renae/IV: Voiding Method Indwelling Catheter IV Catheter Type [Right Hand] INT / Saline Lock IV Catheter Type [Right Upper PICC Line arm] IV Catheter Type [Right Wrist] INT / Saline Lock IV Catheter Type [Right INT / Saline Lock Forearm] IV Catheter Type [Left Hand] INT / Saline Lock Active Medications - Current Medications Current Medications: Generic Name Dose Route Start Last Admin Trade Name Freq PRN Reason Stop Dose Admin Acetaminophen 650 mg 08/15/20 18:13 09/02/20 12:17 Acetaminophen 325 Mg Tab PO 650 mg Q4H PRN Administration Pain MILD(1-3)/Fever >100.5/REYES Albuterol 2.5 mg 08/15/20 18:13 08/20/20 12:53 Albuterol 2.5 Mg/3 Ml Nebu IH 2.5 mg Q4HRT PRN Administration Shortness Of Breath Amlodipine Besylate 10 mg 08/16/20 10:00 09/12/20 09:13 Amlodipine 10 Mg Tab PO 10 mg QDAY DELFINO Administration Lipase/Protease/Amylase 1 each 09/06/20 11:37 Lipase 10,500/Protease 25,000/Amylase 43,750 (Units) Dr Lisa FEEDTUBE PRN PRN For Clogged Feeding Tube Ascorbic Acid 500 mg 09/03/20 22:00 09/12/20 21:28 Ascorbic Acid 500 Mg Tab PO 500 mg BID DELFINO Administration Atorvastatin Calcium 40 mg 08/15/20 22:00 09/12/20 21:27 Atorvastatin 40 Mg Tab PO 40 mg QHS DELFINO Administration Cilostazol 100 mg 08/15/20 22:00 09/12/20 21:27 Cilostazol 100 Mg Tab PO 100 mg BID DELFINO Administration Clopidogrel Bisulfate 75 mg 08/16/20 10:00 09/12/20 09:13 Clopidogrel 75 Mg Tab PO 75 mg QDAY DELFINO Administration Dextrose 50 ml 09/10/20 13:56 Dextrose 50% In Water (25gm) 50 Ml Syringe IV Q30MIN PRN Hypoglycemia Protocol Enoxaparin Sodium 90 mg 09/05/20 22:00 09/12/20 21:27 Enoxaparin 100 Mg/1 Ml Inj SUB-Q 90 mg Q12HR DELFINO Administration Fentanyl 50 mcg 09/05/20 05:23 Fentanyl 100 Mcg/2 Ml Inj IV Q10MIN PRN ANALGESIA Folic Acid 1 mg 08/16/20 10:00 09/12/20 09:14 Folic Acid 1 Mg Tab PO 1 mg QDAY DELFINO Administration Hydrophilic Ointment 1 applic 09/05/20 05:23 Lip Therapy Vaseline TP Q2HR PRN Dry Lips Sodium Chloride 500 mls @ 1 mls/hr 09/02/20 13:41 09/02/20 18:53 Nacl 0.9% 500 Ml IV 1 mls/hr DIRECT PRN Administration ARTERIAL LINE FLUSH Norepinephrine 4 mg in 250 mls @ 7.5 mls/hr 09/02/20 15:00 09/07/20 06:50 Levophed Drip 4 Mg/Ns 250 Ml IV 0 mcg/min TITR DELFINO 0 mls/hr Titration Protocol 2 MCG/MIN Vasopressin 20 unit/ Sodium 101 mls @ 9.09 mls/hr 09/02/20 16:00 Chloride IV TITR DELFINO Protocol 0.03 UNITS/MIN Fentanyl Citrate 2,000 mcg in 100 mls @ 4.465 mls/hr 09/05/20 06:00 09/11/20 19:07 Fentanyl Drip Premix IV 0 mcg/kg/hr TITR DELFINO 0 mls/hr Titration Protocol 1 MCG/KG/HR Midazolam HCl 100 mg/ Sodium 100 mls @ 2 mls/hr 09/05/20 06:00 09/06/20 08:30 Chloride IV 0 mg/hr TITR DELFINO 0 mls/hr Titration Protocol 2 MG/HR Sodium Chloride 500 mls @ 0 mls/hr 09/12/20 12:40 09/12/20 17:22 Nacl 0.9% 500 Ml IV 250 mls/hr ONCE DELFINO Administration As Directed Insulin Glargine 20 units 09/12/20 17:00 09/12/20 17:22 Insulin Glargine 100 Units/Ml SUB-Q 20 units BIDDIAB DELFINO Administration Insulin Human Lispro 0 unit 09/10/20 18:00 09/13/20 05:18 Insulin Lispro 100 Unit/Ml Vial 3 Ml SUB-Q 6 unit Q6H DELFINO Administration Protocol Lansoprazole 30 mg 09/05/20 10:00 09/12/20 09:13 Lansoprazole 30 Mg Solutab FEEDTUBE 30 mg QDAY DELFINO Administration Loperamide HCl 2 mg 08/26/20 23:00 08/28/20 12:51 Loperamide 2 Mg Cap PO 2 mg PRN PRN Administration Diarrhea Lorazepam 1 mg 09/06/20 17:25 Lorazepam 2 Mg/Ml Vial IV Q4H PRN Anxiety Metoprolol Tartrate 50 mg 08/15/20 22:00 09/12/20 21:27 Metoprolol Tartrate 50 Mg Tab PO 50 mg BID DELFINO Administration Midazolam HCl 2 mg 09/05/20 05:23 09/05/20 05:56 Midazolam 2 Mg/2 Ml Inj IV 2 mg Q10MIN PRN Administration Sedation Multi-Ingred Cream/Lotion/Oil/Oint 1 applic 09/05/20 05:23 Mineral Oil/Petrolatum, White Ophth Oint 3.5 Gm OU Q4HR PRN Dry Eye(s) Ondansetron HCl 4 mg 08/15/20 18:13 08/18/20 17:46 Ondansetron 4 Mg/2 Ml Inj IV 4 mg Q8H PRN Administration Nausea And Vomiting Simple Syrup 15 ml 09/06/20 11:37 Simple Syrup 15 Ml FEEDTUBE PRN PRN Hypoglycemia Simple Syrup 30 ml 09/06/20 11:37 Simple Syrup 15 Ml FEEDTUBE PRN PRN Hypoglycemia Sodium Bicarbonate 325 mg 09/06/20 11:37 Sodium Bicarbonate 325 Mg Tab FEEDTUBE PRN PRN For Clogged Feeding Tube Sodium Chloride 10 ml 08/15/20 22:00 09/12/20 21:28 Sodium Chloride 0.9% 10 Ml Flush Syringe IV 10 ml BID DELFINO Administration Sodium Chloride 10 ml 08/15/20 18:13 Sodium Chloride 0.9% 10 Ml Flush Syringe IV PRN PRN LINE FLUSH Thiamine HCl 100 mg 08/16/20 10:00 09/12/20 09:13 Thiamine 100 Mg Tab PO 100 mg QDAY DELFINO Administration Zinc Sulfate 220 mg 09/03/20 22:00 09/12/20 21:28 Zinc Sulfate 220 Mg Cap PO 220 mg BID DELFINO Administration Nutrition/Malnutrition Assess - Dietary Evaluation Nutrition/Malnutrition Findings: Nutrition Notes Start: 08/21/20 14:41 Freq: Status: Active Protocol: Document 09/12/20 12:45 AT (Rec: 09/12/20 13:09 AT [id number]) Co-Sign 09/12/20 12:45 LP Nutrition Notes Initial or Follow up Reassessment Current Diagnosis Coronary Artery Disease,Sepsis ,Hypertension,Heart Failure, Respiratory Failure, Hyperlipidemia Other Pertinent Diagnosis COVID(+),PVD, ETOH dep, pneu, gout, (L) foot ulcer Current Diet Vital HP at 70 mL/hr Labs/Tests Na 153 BUN 46 Cr 0.7 BG 358 Ca 7.1 Pertinent Medications Decadron Lantus Humalog 1/2NS at 75 mL/hr Thiamin Zinc Sulfate Height 5 ft 4 in Weight 81.7 kg [place] Body Weight (kg) 59.09 BMI 30.9 Weight change and time frame Wt loss of 8.5% in one week. Weight Status Obese Subjective/Other Information Follolw-up for TF tolerance and labs. Pt remains on vent. Banquet Houseperson observed that pt is at goal rate of 70 mL/hr. Per RN, pt is receiving 300mL q4hr per MD for hypernatremia. Percent of energy/protein needs met: 86%/100% Burn Absent Trauma Absent GI Symptoms Diarrhea Difficulty In Swallowing Current % PO Negligible Minimum of two criteria Yes Interpretation of Weight Loss (severe) >2% in 1 week Fluid Accumulation Mild (non-severe) Reduced Hypercil [employer]er Strength N/A (non-severe) #3 Nutrition Diagnosis Malnutrition Etiology chronic illness As Evidenced by Signs and Symptoms 8.5% weight loss in one week and edema in the extremities. #2 Nutrition Diagnosis Inadequate oral intake Diagnosis Progress(for reassessment Continues documentation) #1 Nutrition Diagnosis Increased nutrient needs ( specify in comment below) Diagnosis Progress(for reassessment Continues documentation) Is patient on ventilator? Yes Is Patient Ambulatory and/or Out of Bed No [facility] 6130.192 Calculation Used for Recommendations [facility] [place] Additional Notes PRO needs: >118g (>2g/kg IBW) Fluid needs: 1mL/kcal Nutrition Intervention Change Diet Order: Continue TF Nutrition Support: Vital High Protein at 70ml/hr For hypernatremia flush 300ml q4h, once hypernatremia is resolved flush 100ml q4h Kcal 1,680 Protein (gm) 147 Fluid (mL) 1,404 Add Supplement/Snack (indicate name/kcal [place] BID /protein ) Provides kCal: 190 Provides Protein (gm) 5 Goal #1 Meet at least 80% of estimated energy and protein needs via TF Goal #2 Wound healing Anticipated Discharge Needs: Unable to determine at this time Follow-Up By: 09/14/20 Additional Comments F/U for TF tolerance, wt, and labs
--- NOTE | 2020-09-13 09:04 | Progress Note ---
Assessment and Plan Cultures: 08/16/2020 SARS CoV2 PCR: Negative 08/29/2020 SARS CoV2 PCR: Positive 08/15/2020 urine culture: No growth 08/24/2020 blood culture: No growth 08/28/2020 blood culture: No growth 08/28/2020 urine culture: No growth MRSA PCR negative 09/05/2020 Sputum +Barby A/P: 64-year-old male with hypertension, coronary artery disease, peripheral vascular disease, gout, alcohol dependence was admitted to the hospital on 08/15/2020 due to bleeding from his left foot which is a site of a previous surgery. Patient was noted to have wound dehiscence complicated by wound necrosis. Was seen by vascular surgery. He underwent a TMA. Due to fever, patient was receiving IV levofloxacin for UTI. COVID-19 test done on 08/29/2020 for placement reasons came back positive. Patient has been having intermittent fevers since 08/28/2020. 09/02/2020, a code MET was called due to tachypnea and labored respirations: #Shock: Probably from severe COVID-19. #Critical COVID-19 Pneumonia: Patient with severe hypoxia, elevated inf lammatory markers, i,proving. Recently had completed levofloxacin. Sputum with barby, likely a colonizer. Markers improving. #Acute hypoxic respiratory failure: remains intubated improving FIO2=40/p8 #Peripheral vascular disease, wound dehiscence and necrosis: underwent TMA by vascular surgery now with wound VAC #Coronary artery disease, CHF #DM: uncontrolled with hyperglycemia. #Severe anemia: per ICU team Recs: -monitor anemia/evaluation -Continue IV/PO Dexamethasone 6 mg daily x 10 days completed 10 days needs taper -Completed remdesivir -S/p empiric 8 days of aztreonam and vanco -monitor off abx -continue wound care Corry Perrin MD [facility] ([facility]) Office [phone] Subjective Principal diagnosis: Ac hypoxemic resp failure; COVID-19; Pneumonia; Sepsis; PVD; L. foot ulcer Objective - Constitutional Vitals: Vital Signs Temp Pulse Resp BP Pulse Ox 99.0 F 94 H 22 158/82 96 09/13/20 03:19 09/13/20 07:54 09/13/20 06:01 09/13/20 07:54 09/13/20 07:54 Temperature -Last 24 Hours Temperature 99.0 F Temperature 98.7 F Temperature 98.8 F Temperature 98.8 F Temperature 97.4 F Temperature 97.2 F Temperature 97.2 F Temperature 97.9 F Temperature 97.9 F Temperature 97.7 F - Labs CBC & Chem 7: 09/12/20 06:01 09/12/20 06:01 Labs: Abnormal lab results 09/12/20 09/12/20 09/12/20 Range/Units 11:22 13:30 16:47 ABG pH (7.320-7.450) POC ABG pO2 (83-108) mmHg ABG Hemoglobin (12.0-17.5) ABG Sodium (136.0-145.0) mmol/L ABG Chloride (98-107) mmol/L ABG Glucose (65-95) mg/dL POC Glucose 350 H 389 H (70-105) mg/dL Arterial Blood Glucose (65-95) mg/dL Crossmatch See Detail 09/12/20 09/12/20 09/13/20 Range/Units 17:40 23:56 02:09 ABG pH 7.471 H (7.320-7.450) POC ABG pO2 75.2 L (83-108) mmHg ABG Hemoglobin 11.5 L (12.0-17.5) ABG Sodium 158.8 H (136.0-145.0) mmol/L ABG Chloride 122.0 H (98-107) mmol/L ABG Glucose 387 H (65-95) mg/dL POC Glucose 402 H 337 H (70-105) mg/dL Arterial Blood Glucose 387 H (65-95) mg/dL Crossmatch 09/13/20 Range/Units 05:08 ABG pH (7.320-7.450) POC ABG pO2 (83-108) mmHg ABG Hemoglobin (12.0-17.5) ABG Sodium (136.0-145.0) mmol/L ABG Chloride (98-107) mmol/L ABG Glucose (65-95) mg/dL POC Glucose 256 H (70-105) mg/dL Arterial Blood Glucose (65-95) mg/dL Crossmatch
[2020-09-13] MEDS: ENOXAPARIN 100 MG/1 ML INJ SUB-Q SCH ×2 (09:05→22:29)
[2020-09-13] MEDS: INSULIN GLARGINE 100 UNITS/ML SUB-Q SCH ×3 (09:05→20:40)
[2020-09-13] MEDS: CILOSTAZOL 100 MG TAB PO SCH ×2 (09:11→22:30)
[2020-09-13] MEDS: amLODIPine 10 MG TAB PO SCH (09:11)
[2020-09-13] MEDS: ASCORBIC ACID 500 MG TAB PO SCH ×2 (09:11→22:30)
[2020-09-13] MEDS: THIAMINE 100 MG TAB PO SCH (09:12)
[2020-09-13] MEDS: CLOPIDOGREL 75 MG TAB PO SCH (09:12)
[2020-09-13] MEDS: FOLIC ACID 1 MG TAB PO SCH (09:12)
[2020-09-13] MEDS: METOPROLOL TARTRATE 50 MG TAB PO SCH ×2 (09:12→22:30)
[2020-09-13] MEDS: LANSOPRAZOLE 30 MG SOLUTAB FEEDTUBE SCH (09:12)
[2020-09-13] MEDS: ZINC SULFATE 220 MG CAP PO SCH ×2 (09:12→22:30)
[2020-09-13 10:04] LABS: Hematocrit 33.7 % (35.5-45.6); Hemoglobin 10.9 gm/dl (11.8-15.2); Mean Corpuscular HGB Conc 32 % (32-34); Mean Corpuscular Volume 92 fl (84-94); Platelet Count 187 K/mm3 (140-440); Red Blood Count 3.67 M/mm3 (3.65-5.03); Red Cell Distribution Width 18.5 % (13.2-15.2)
[2020-09-13 10:11] LABS: Basophils # (Auto) 0.1 K/mm3 (0.0-0.1); Basophils % (Auto) 0.6 % (0.0-1.8); Lymphocytes # (Auto) 0.9 K/mm3 (1.2-5.4); Lymphocytes % (Auto) 7.1 % (13.4-35.0); Monocytes # (Auto) 0.4 K/mm3 (0.0-0.8)
[2020-09-13 10:17] LABS: BUN/Creatinine Ratio 64; Blood Urea Nitrogen 51 mg/dL (9-20); Calcium 8.9 mg/dL (8.4-10.2); Hemolysis Index 6
--- NOTE | 2020-09-13 13:44 | Progress Note ---
Assessment and Plan Acute hypoxemic respiratory failure, on mechanical ventilatory support. COVID-19 infection. Bilateral pneumonia versus pulmonary edema. Severe sepsis with shock. Peripheral vascular disease. Anemia that is microcytic. History of alcohol abuse. Acute encephalopathy. History of obesity. History of coronary artery disease. History of gout. Hyperlipidemia. Hypertension, now hypotensive. Left lower extremity / left foot ulcer. - begin D5W @ 100/hr X 4 liters - increased Lantus to 30 units SQ BID - increased peep to 10 - continue care as below otherwise; - continue Free water flushes increased at 300 mls q4h - continue daily SAT and SBT assessment as tolerated - continue to wean supplemental oxygen for target O2 sat's > 92% acutely - VAP bundle addressed - continue lung protective strategies - continue bronchodilators with pulmonary hygiene per RT - wean per pulmonary driven protocols otherwise - continue accuchecks with glycemic control per SSI (While critically ill target blood glucose of 140-180 mg/dL; avoid hypoglycemia) - sedation prn for target RASS 0 to -1 - avoid nephrotoxins, renally dose all medications - accuchecks with glycemic control per SSI (While critically ill target blood glucose of 140-180 mg/dL; avoid hypoglycemia) - avoid benzodiazepine's, reduce the possibility of delirium - complete AB's per ID rec's - prn analgesia per CPOT score - Maintenance of sleep-wake cycle, avoid delirium - enteral nutritional support at goal rate as tolerated - G.I. & VTE prophylaxis - PT/OT/ROM exercises - continue mobility protocols for pressure ulcer prophylaxis - Monitor hemodynamics closely - continue other care per attending / other consultants - discharge planning ongoing concurrently COVID SPECIFIC INTERVENTIONS - completed Remdesivir as per ID/Pulmonary developed protocols - continue systemic steroids for severe COVID-19 infection empirically - follow repeat COVID tests results - zinc and vitamin C supplementation - Monitor inflammatory markers per facility protocol - ferritin, Ddimer, CRP - therapeutic anticoagulation per system Protocol based on d-dimer and clinical considerations - Continue contact and airborne isolation .... Re-evaluate in am & prn CONDITION: CRITICAL PROGNOSIS: GUARDED CODE STATUS: FULL CODE The high probability of a clinically significant, sudden or life-threatening deterioration of the [respiratory, cardiovascular, renal & neurologic] system(s) required my full and direct attention, intervention and personal management. The aggregate critical care time was [33] minutes without overlap. Time includes spent on; [x] Data Review and interpretation [x] Patient assessment and monitoring of vital signs [x] Documentation [x] Medication orders and management Subjective Date of service: 09/13/20 Principal diagnosis: Ac hypoxemic resp failure; COVID-19; Pneumonia; Sepsis; PVD; L. foot ulcer Interval history: Patient is seen today for: Acute hypoxemic respiratory failure; COVID-19 infection; Bilateral pneumonia versus pulmonary edema; Severe sepsis with shock; Peripheral vascular disease; Acute encephalopathy; Left lower extremity / left foot ulcer. Seen and examined at bedside; 24hour events reviewed; nursing and respiratory care staff consulted; no adverse overnight events reported to me; resting peacefully in bed; remains on MVS; FiO2 at 40% with peep reduced to 8 but now de-saturating; no high fevers; no emesis or overt aspiration Objective Vital Signs - 12hr 09/13/20 09/13/20 09/13/20 01:45 02:01 02:15 Temperature Pulse Rate 81 76 73 Pulse Rate [ From Monitor] Respiratory 21 Rate Blood Pressure 137/74 144/69 144/69 O2 Sat by Pulse 93 95 96 Oximetry 09/13/20 09/13/20 09/13/20 02:31 02:45 03:01 Temperature Pulse Rate 71 79 82 Pulse Rate [ From Monitor] Respiratory 22 Rate Blood Pressure 153/73 153/73 153/69 O2 Sat by Pulse 95 96 95 Oximetry 09/13/20 09/13/20 09/13/20 03:15 03:19 03:30 Temperature 99.0 F Pulse Rate 76 80 Pulse Rate [ From Monitor] Respiratory 22 22 Rate Blood Pressure 153/69 155/80 O2 Sat by Pulse 97 97 Oximetry 09/13/20 09/13/20 09/13/20 03:45 04:00 04:10 Temperature Pulse Rate 79 76 76 Pulse Rate [ 92 H From Monitor] Respiratory 22 21 0 L Rate Blood Pressure 155/80 163/81 153/69 O2 Sat by Pulse 96 96 96 Oximetry 09/13/20 09/13/20 09/13/20 04:15 04:31 04:45 Temperature Pulse Rate 87 80 91 H Pulse Rate [ From Monitor] Respiratory 19 Rate Blood Pressure 164/85 172/79 172/79 O2 Sat by Pulse 95 97 97 Oximetry 09/13/20 09/13/20 09/13/20 05:01 05:15 05:30 Temperature Pulse Rate 80 89 90 Pulse Rate [ From Monitor] Respiratory 13 Rate Blood Pressure 167/78 164/84 160/80 O2 Sat by Pulse 96 94 95 Oximetry 09/13/20 09/13/20 09/13/20 05:45 06:01 06:15 Temperature Pulse Rate 85 97 H 97 H Pulse Rate [ From Monitor] Respiratory Rate Blood Pressure 160/80 169/78 171/75 O2 Sat by Pulse 96 95 95 Oximetry 09/13/20 09/13/20 09/13/20 06:31 06:45 07:01 Temperature Pulse Rate 100 H 95 H 96 H Pulse Rate [ From Monitor] Respiratory Rate Blood Pressure 165/83 165/83 165/77 O2 Sat by Pulse 95 96 95 Oximetry 09/13/20 09/13/20 09/13/20 07:15 07:31 07:45 Temperature Pulse Rate 98 H 91 H 86 Pulse Rate [ From Monitor] Respiratory Rate Blood Pressure 163/79 152/80 158/82 O2 Sat by Pulse 96 95 95 Oximetry 09/13/20 09/13/20 09/13/20 07:54 08:00 08:15 Temperature 97.9 F Pulse Rate 94 H 91 H 90 Pulse Rate [ 88 From Monitor] Respiratory Rate Blood Pressure 158/82 166/86 160/80 O2 Sat by Pulse 96 95 95 Oximetry 09/13/20 09/13/20 09/13/20 08:31 08:45 09:00 Temperature Pulse Rate 92 H 88 91 H Pulse Rate [ From Monitor] Respiratory Rate Blood Pressure 154/73 154/73 163/80 O2 Sat by Pulse 95 96 95 Oximetry 09/13/20 09/13/20 09/13/20 09:11 09:12 09:15 Temperature Pulse Rate 99 H 88 100 H Pulse Rate [ From Monitor] Respiratory Rate Blood Pressure 163/80 163/80 163/80 O2 Sat by Pulse 96 Oximetry 09/13/20 09/13/20 09/13/20 09:31 09:45 10:01 Temperature Pulse Rate 83 80 76 Pulse Rate [ From Monitor] Respiratory 22 Rate Blood Pressure 162/76 160/80 144/67 O2 Sat by Pulse 96 97 95 Oximetry 09/13/20 09/13/20 09/13/20 10:15 10:31 10:45 Temperature Pulse Rate 76 71 77 Pulse Rate [ From Monitor] Respiratory 22 22 22 Rate Blood Pressure 144/67 133/62 123/64 O2 Sat by Pulse 97 95 95 Oximetry 09/13/20 09/13/20 09/13/20 11:00 11:15 11:31 Temperature Pulse Rate 78 78 78 Pulse Rate [ From Monitor] Respiratory 21 22 22 Rate Blood Pressure 121/64 121/64 114/63 O2 Sat by Pulse 95 95 95 Oximetry 09/13/20 09/13/20 09/13/20 11:45 11:55 12:00 Temperature 97.2 F L Pulse Rate 81 82 Pulse Rate [ 88 From Monitor] Respiratory 22 22 22 Rate Blood Pressure 114/63 123/61 O2 Sat by Pulse 94 97 93 Oximetry 09/13/20 09/13/20 09/13/20 12:07 12:15 12:31 Temperature Pulse Rate 81 82 82 Pulse Rate [ From Monitor] Respiratory 20 17 Rate Blood Pressure 123/61 123/61 120/59 O2 Sat by Pulse 94 95 94 Oximetry Constitutional: no acute distress, other (elderly obese male without increased respiratory effort at rest on MVS) Eyes: non-icteric ENT: oropharynx moist, other (ETT 24 cm MONICA) Neck: supple, no lymphadenopathy, no JVD Effort: normal Ascultation: Bilateral: diminished breath sounds, rhonchi Percussion: Bilateral: not dull Cardiovascular: regular rate and rhythm Gastrointestinal: normoactive bowel sounds, soft, non-tender, non-distended (protuberant) Integumentary: normal (in areas i examined; please see [facility] notes for full description) Extremities: no cyanosis, pink and warm, pulses normal, no ischemia or petechiae Neurologic: non-focal exam (grossly), pupils equal and round, other (lethargic) Psychiatric: other (unable to assess) CBC and BMP: 09/13/20 09:07 09/13/20 09:07 ABG, PT/INR, D-dimer: ABG ABG pH 7.471 (7.320-7.450) H 09/13/20 02:09 POC ABG pCO2 46.7 mmHg (32.0-48.0) 09/13/20 02:09 ABG pCO2 48.6 mm Hg 09/12/20 03:40 POC ABG pO2 75.2 mmHg (83-108) L 09/13/20 02:09 ABG pO2 77.1 mm Hg (80.0-90.0) L 09/12/20 03:40 POC ABG HCO3 33.3 09/13/20 02:09 ABG O2 Saturation 97.2 % (95.0-99.0) 09/12/20 03:40 PT/INR, D-dimer PT 15.5 Sec. (12.2-14.9) H 09/02/20 15:55 INR 1.23 (0.87-1.13) H 09/02/20 15:55 D-Dimer 1449.12 ng/mlDDU (0-234) H 09/08/20 19:15 Abnormal lab findings: Abnormal Labs 08/15/20 08/15/20 08/15/20 08:49 10:40 10:40 WBC RBC 2.96 L Hgb 9.0 L Hct 25.8 L MCV MCH MCHC 35 H RDW 16.2 H Lymph % (Auto) [place] % (Auto) Eos % (Auto) Lymph # (Auto) Seg Neutrophils % Seg Neutrophils # PT INR APTT D-Dimer Heparin Anti-Xa Level ABG pH POC ABG pCO2 POC ABG pO2 ABG pO2 ABG HCO3 ABG O2 Saturation ABG Base Excess ABG Hemoglobin ABG Oxyhemoglobin ABG Sodium ABG Potassium ABG Chloride ABG Glucose Carboxyhemoglobin Sodium Potassium Chloride Carbon Dioxide BUN Creatinine 0.7 L Glucose 188 H POC Glucose 212 H Calcium 8.3 L Magnesium Ferritin AST Alkaline Phosphatase Lactate Dehydrogenase C-Reactive Protein Total Protein Albumin Arterial Blood Glucose Arterial Blood Ionized Calcium Urine WBC (Auto) Coronavirus (PCR) Crossmatch 08/15/20 08/15/20 08/16/20 14:00 Unknown 04:43 WBC RBC 3.28 L Hgb 9.6 L Hct 29.3 L MCV MCH MCHC RDW 16.6 H Lymph % (Auto) [place] % (Auto) Eos % (Auto) 4.9 H Lymph # (Auto) Seg Neutrophils % Seg Neutrophils # PT INR APTT D-Dimer Heparin Anti-Xa Level ABG pH POC ABG pCO2 POC ABG pO2 ABG pO2 ABG HCO3 ABG O2 Saturation ABG Base Excess ABG Hemoglobin ABG Oxyhemoglobin ABG Sodium ABG Potassium ABG Chloride ABG Glucose Carboxyhemoglobin Sodium Potassium Chloride Carbon Dioxide BUN 8 L Creatinine 0.6 L Glucose 115 H POC Glucose Calcium Magnesium Ferritin AST Alkaline Phosphatase Lactate Dehydrogenase C-Reactive Protein Total Protein Albumin Arterial Blood Glucose Arterial Blood Ionized Calcium Urine WBC (Auto) 31.0 H Coronavirus (PCR) Crossmatch 08/16/20 08/18/20 08/20/20 04:43 15:17 07:12 WBC RBC Hgb 9.1 L Hct 27.2 L MCV MCH MCHC RDW Lymph % (Auto) [place] % (Auto) Eos % (Auto) Lymph # (Auto) Seg Neutrophils % Seg Neutrophils # PT INR APTT D-Dimer Heparin Anti-Xa Level ABG pH POC ABG pCO2 POC ABG pO2 ABG pO2 ABG HCO3 ABG O2 Saturation ABG Base Excess ABG Hemoglobin ABG Oxyhemoglobin ABG Sodium ABG Potassium ABG Chloride ABG Glucose Carboxyhemoglobin Sodium 135 L Potassium Chloride 97.5 L Carbon Dioxide BUN Creatinine 0.5 L Glucose 153 H 135 H POC Glucose Calcium Magnesium Ferritin AST Alkaline Phosphatase Lactate Dehydrogenase C-Reactive Protein Total Protein Albumin Arterial Blood Glucose Arterial Blood Ionized Calcium Urine WBC (Auto) Coronavirus (PCR) Crossmatch 08/20/20 08/20/20 08/20/20 07:12 07:12 08:07 WBC RBC Hgb Hct MCV MCH MCHC RDW Lymph % (Auto) [place] % (Auto) Eos % (Auto) Lymph # (Auto) Seg Neutrophils % Seg Neutrophils # PT INR 1.15 H APTT D-Dimer Heparin Anti-Xa Level ABG pH POC ABG pCO2 POC ABG pO2 ABG pO2 ABG HCO3 ABG O2 Saturation ABG Base Excess ABG Hemoglobin ABG Oxyhemoglobin ABG Sodium ABG Potassium ABG Chloride ABG Glucose Carboxyhemoglobin Sodium Potassium Chloride Carbon Dioxide BUN Creatinine Glucose 113 H POC Glucose 108 H Calcium Magnesium Ferritin AST Alkaline Phosphatase Lactate Dehydrogenase C-Reactive Protein Total Protein Albumin Arterial Blood Glucose Arterial Blood Ionized Calcium Urine WBC (Auto) Coronavirus (PCR) Crossmatch 08/20/20 08/20/20 08/21/20 16:32 22:34 07:42 WBC RBC Hgb Hct MCV MCH MCHC RDW Lymph % (Auto) [place] % (Auto) Eos % (Auto) Lymph # (Auto) Seg Neutrophils % Seg Neutrophils # PT INR APTT D-Dimer Heparin Anti-Xa Level ABG pH POC ABG pCO2 POC ABG pO2 ABG pO2 ABG HCO3 ABG O2 Saturation ABG Base Excess ABG Hemoglobin ABG Oxyhemoglobin ABG Sodium ABG Potassium ABG Chloride ABG Glucose Carboxyhemoglobin Sodium Potassium Chloride Carbon Dioxide BUN Creatinine Glucose POC Glucose 107 H 139 H 115 H Calcium Magnesium Ferritin AST Alkaline Phosphatase Lactate Dehydrogenase C-Reactive Protein Total Protein Albumin Arterial Blood Glucose Arterial Blood Ionized Calcium Urine WBC (Auto) Coronavirus (PCR) Crossmatch 08/21/20 08/21/20 08/21/20 08:14 08:14 11:31 WBC RBC 3.08 L Hgb 8.9 L Hct 27.0 L MCV MCH MCHC RDW 16.7 H Lymph % (Auto) [place] % (Auto) Eos % (Auto) Lymph # (Auto) Seg Neutrophils % Seg Neutrophils # PT INR APTT D-Dimer Heparin Anti-Xa Level ABG pH POC ABG pCO2 POC ABG pO2 ABG pO2 ABG HCO3 ABG O2 Saturation ABG Base Excess ABG Hemoglobin ABG Oxyhemoglobin ABG Sodium ABG Potassium ABG Chloride ABG Glucose Carboxyhemoglobin Sodium 136 L Potassium Chloride Carbon Dioxide BUN Creatinine Glucose 129 H POC Glucose 132 H Calcium Magnesium Ferritin AST Alkaline Phosphatase Lactate Dehydrogenase C-Reactive Protein Total Protein Albumin Arterial Blood Glucose Arterial Blood Ionized Calcium Urine WBC (Auto) Coronavirus (PCR) Crossmatch 08/24/20 08/25/20 08/26/20 10:57 18:39 11:57 WBC RBC Hgb Hct MCV MCH MCHC RDW Lymph % (Auto) [place] % (Auto) Eos % (Auto) Lymph # (Auto) Seg Neutrophils % Seg Neutrophils # PT INR APTT D-Dimer Heparin Anti-Xa Level ABG pH POC ABG pCO2 POC ABG pO2 ABG pO2 ABG HCO3 ABG O2 Saturation ABG Base Excess ABG Hemoglobin ABG Oxyhemoglobin ABG Sodium ABG Potassium ABG Chloride ABG Glucose Carboxyhemoglobin Sodium Potassium Chloride Carbon Dioxide BUN Creatinine Glucose POC Glucose 126 H 120 H 127 H Calcium Magnesium Ferritin AST Alkaline Phosphatase Lactate Dehydrogenase C-Reactive Protein Total Protein Albumin Arterial Blood Glucose Arterial Blood Ionized Calcium Urine WBC (Auto) Coronavirus (PCR) Crossmatch 08/26/20 08/26/20 08/28/20 18:44 23:31 19:34 WBC RBC 3.09 L Hgb 8.7 L Hct 25.5 L MCV 82 L MCH MCHC RDW 17.1 H Lymph % (Auto) [place] % (Auto) 9.1 H Eos % (Auto) Lymph # (Auto) 0.8 L Seg Neutrophils % 71.7 H Seg Neutrophils # PT INR APTT D-Dimer Heparin Anti-Xa Level ABG pH POC ABG pCO2 POC ABG pO2 ABG pO2 ABG HCO3 ABG O2 Saturation ABG Base Excess ABG Hemoglobin ABG Oxyhemoglobin ABG Sodium ABG Potassium ABG Chloride ABG Glucose Carboxyhemoglobin Sodium Potassium Chloride Carbon Dioxide BUN Creatinine Glucose POC Glucose 125 H 115 H Calcium Magnesium Ferritin AST Alkaline Phosphatase Lactate Dehydrogenase C-Reactive Protein Total Protein Albumin Arterial Blood Glucose Arterial Blood Ionized Calcium Urine WBC (Auto) Coronavirus (PCR) Crossmatch 08/28/20 08/28/20 08/29/20 19:34 22:16 08:06 WBC RBC Hgb Hct MCV MCH MCHC RDW Lymph % (Auto) [place] % (Auto) Eos % (Auto) Lymph # (Auto) Seg Neutrophils % Seg Neutrophils # PT INR APTT D-Dimer Heparin Anti-Xa Level ABG pH POC ABG pCO2 POC ABG pO2 ABG pO2 ABG HCO3 ABG O2 Saturation ABG Base Excess ABG Hemoglobin ABG Oxyhemoglobin ABG Sodium ABG Potassium ABG Chloride ABG Glucose Carboxyhemoglobin Sodium 130 L Potassium 2.6 L* Chloride 96.4 L Carbon Dioxide BUN Creatinine Glucose 119 H POC Glucose 110 H 119 H Calcium 7.8 L Magnesium Ferritin AST Alkaline Phosphatase Lactate Dehydrogenase C-Reactive Protein Total Protein Albumin Arterial Blood Glucose Arterial Blood Ionized Calcium Urine WBC (Auto) Coronavirus (PCR) Crossmatch 08/29/20 08/29/20 08/29/20 12:13 16:37 17:38 WBC RBC Hgb Hct MCV MCH MCHC RDW Lymph % (Auto) [place] % (Auto) Eos % (Auto) Lymph # (Auto) Seg Neutrophils % Seg Neutrophils # PT INR APTT D-Dimer Heparin Anti-Xa Level ABG pH POC ABG pCO2 POC ABG pO2 ABG pO2 ABG HCO3 ABG O2 Saturation ABG Base Excess ABG Hemoglobin ABG Oxyhemoglobin ABG Sodium ABG Potassium ABG Chloride ABG Glucose Carboxyhemoglobin Sodium 133 L Potassium 3.0 L Chloride 97.9 L Carbon Dioxide 21 L BUN Creatinine Glucose 111 H POC Glucose 109 H 106 H Calcium 8.3 L Magnesium 1.30 L Ferritin AST Alkaline Phosphatase Lactate Dehydrogenase C-Reactive Protein Total Protein Albumin Arterial Blood Glucose Arterial Blood Ionized Calcium Urine WBC (Auto) Coronavirus (PCR) Crossmatch 08/29/20 08/29/20 08/29/20 19:21 19:21 19:21 WBC RBC Hgb Hct MCV MCH MCHC RDW Lymph % (Auto) [place] % (Auto) Eos % (Auto) Lymph # (Auto) Seg Neutrophils % Seg Neutrophils # PT INR APTT D-Dimer 688.12 H Heparin Anti-Xa Level ABG pH POC ABG pCO2 POC ABG pO2 ABG pO2 ABG HCO3 ABG O2 Saturation ABG Base Excess ABG Hemoglobin ABG Oxyhemoglobin ABG Sodium ABG Potassium ABG Chloride ABG Glucose Carboxyhemoglobin Sodium Potassium 3.1 L Chloride Carbon Dioxide BUN Creatinine Glucose POC Glucose Calcium Magnesium 1.50 L Ferritin 1476.0 H AST Alkaline Phosphatase Lactate Dehydrogenase C-Reactive Protein Total Protein Albumin Arterial Blood Glucose Arterial Blood Ionized Calcium Urine WBC (Auto) Coronavirus (PCR) Crossmatch 08/29/20 08/29/20 08/31/20 19:21 Unknown 04:30 WBC RBC 3.12 L Hgb 9.1 L Hct 25.7 L MCV 83 L MCH MCHC 35 H RDW 17.4 H Lymph % (Auto) [place] % (Auto) 9.4 H Eos % (Auto) Lymph # (Auto) Seg Neutrophils % Seg Neutrophils # PT INR APTT D-Dimer Heparin Anti-Xa Level ABG pH POC ABG pCO2 POC ABG pO2 ABG pO2 ABG HCO3 ABG O2 Saturation ABG Base Excess ABG Hemoglobin ABG Oxyhemoglobin ABG Sodium ABG Potassium ABG Chloride ABG Glucose Carboxyhemoglobin Sodium Potassium Chloride Carbon Dioxide BUN Creatinine Glucose POC Glucose Calcium Magnesium Ferritin AST Alkaline Phosphatase Lactate Dehydrogenase 373 H C-Reactive Protein 18.30 H Total Protein Albumin Arterial Blood Glucose Arterial Blood Ionized Calcium Urine WBC (Auto) Coronavirus (PCR) Positive A Crossmatch 08/31/20 09/02/20 09/02/20 04:30 06:28 06:49 WBC RBC Hgb Hct MCV MCH MCHC RDW Lymph % (Auto) [place] % (Auto) Eos % (Auto) Lymph # (Auto) Seg Neutrophils % Seg Neutrophils # PT INR APTT D-Dimer Heparin Anti-Xa Level ABG pH POC ABG pCO2 26.2 L POC ABG pO2 82.2 L ABG pO2 ABG HCO3 ABG O2 Saturation ABG Base Excess ABG Hemoglobin 10.1 L ABG Oxyhemoglobin ABG Sodium 134.5 L ABG Potassium 3.2 L ABG Chloride ABG Glucose 127 H Carboxyhemoglobin 0.3 L Sodium 134 L Potassium 3.4 L Chloride Carbon Dioxide BUN Creatinine Glucose 129 H POC Glucose 109 H Calcium 8.0 L Magnesium Ferritin AST Alkaline Phosphatase Lactate Dehydrogenase C-Reactive Protein Total Protein Albumin Arterial Blood Glucose 127 H Arterial Blood Ionized Calcium 4.5 L Urine WBC (Auto) Coronavirus (PCR) Crossmatch 09/02/20 09/02/20 09/02/20 11:32 15:55 15:55 WBC RBC Hgb Hct MCV MCH MCHC RDW Lymph % (Auto) [place] % (Auto) Eos % (Auto) Lymph # (Auto) Seg Neutrophils % Seg Neutrophils # PT 15.5 H INR 1.23 H APTT 50.2 H D-Dimer 2186.40 H Heparin Anti-Xa Level ABG pH POC ABG pCO2 POC ABG pO2 ABG pO2 ABG HCO3 ABG O2 Saturation ABG Base Excess ABG Hemoglobin ABG Oxyhemoglobin ABG Sodium ABG Potassium ABG Chloride ABG Glucose Carboxyhemoglobin Sodium Potassium Chloride Carbon Dioxide 21 L BUN 30 H Creatinine 1.6 H Glucose 125 H POC Glucose 112 H Calcium 7.8 L Magnesium Ferritin AST Alkaline Phosphatase Lactate Dehydrogenase C-Reactive Protein Total Protein Albumin Arterial Blood Glucose Arterial Blood Ionized Calcium Urine WBC (Auto) Coronavirus (PCR) Crossmatch 09/02/20 09/02/20 09/02/20 15:55 15:55 17:34 WBC 11.2 H RBC 2.94 L Hgb 8.1 L Hct 24.3 L MCV 83 L MCH 27 L MCHC RDW 17.7 H Lymph % (Auto) 12.7 L [place] % (Auto) Eos % (Auto) Lymph # (Auto) Seg Neutrophils % 82.5 H Seg Neutrophils # 9.3 H PT INR APTT D-Dimer Heparin Anti-Xa Level ABG pH POC ABG pCO2 POC ABG pO2 ABG pO2 ABG HCO3 ABG O2 Saturation ABG Base Excess ABG Hemoglobin ABG Oxyhemoglobin ABG Sodium ABG Potassium ABG Chloride ABG Glucose Carboxyhemoglobin Sodium Potassium Chloride Carbon Dioxide BUN Creatinine Glucose POC Glucose 127 H Calcium Magnesium Ferritin 1892.0 H AST Alkaline Phosphatase Lactate Dehydrogenase C-Reactive Protein Total Protein Albumin Arterial Blood Glucose Arterial Blood Ionized Calcium Urine WBC (Auto) Coronavirus (PCR) Crossmatch 09/03/20 09/03/20 09/03/20 07:13 16:40 23:40 WBC RBC Hgb Hct MCV MCH MCHC RDW Lymph % (Auto) [place] % (Auto) Eos % (Auto) Lymph # (Auto) Seg Neutrophils % Seg Neutrophils # PT INR APTT D-Dimer Heparin Anti-Xa Level 0.88 H ABG pH POC ABG pCO2 POC ABG pO2 ABG pO2 ABG HCO3 ABG O2 Saturation ABG Base Excess ABG Hemoglobin ABG Oxyhemoglobin ABG Sodium ABG Potassium ABG Chloride ABG Glucose Carboxyhemoglobin Sodium Potassium 3.2 L Chloride 109.7 H Carbon Dioxide BUN 24 H Creatinine Glucose 142 H POC Glucose 220 H Calcium 8.2 L Magnesium Ferritin AST 75 H Alkaline Phosphatase Lactate Dehydrogenase C-Reactive Protein Total Protein 5.8 L Albumin 2.7 L Arterial Blood Glucose Arterial Blood Ionized Calcium Urine WBC (Auto) Coronavirus (PCR) Crossmatch 09/04/20 09/04/20 09/04/20 07:25 07:25 11:57 WBC RBC Hgb 9.0 L Hct 27.9 L MCV MCH MCHC RDW Lymph % (Auto) [place] % (Auto) Eos % (Auto) Lymph # (Auto) Seg Neutrophils % Seg Neutrophils # PT INR APTT D-Dimer Heparin Anti-Xa Level ABG pH POC ABG pCO2 POC ABG pO2 ABG pO2 ABG HCO3 ABG O2 Saturation ABG Base Excess ABG Hemoglobin ABG Oxyhemoglobin ABG Sodium ABG Potassium ABG Chloride ABG Glucose Carboxyhemoglobin Sodium 148 H Potassium Chloride 116.9 H Carbon Dioxide BUN Creatinine Glucose 129 H POC Glucose 113 H Calcium Magnesium Ferritin AST 93 H Alkaline Phosphatase 134 H Lactate Dehydrogenase C-Reactive Protein Total Protein 6.0 L Albumin 2.6 L Arterial Blood Glucose Arterial Blood Ionized Calcium Urine WBC (Auto) Coronavirus (PCR) Crossmatch 09/05/20 09/05/20 09/05/20 06:24 07:17 13:38 WBC RBC Hgb Hct MCV MCH MCHC RDW Lymph % (Auto) [place] % (Auto) Eos % (Auto) Lymph # (Auto) Seg Neutrophils % Seg Neutrophils # PT INR APTT D-Dimer Heparin Anti-Xa Level ABG pH 7.218 L POC ABG pCO2 66.0 H POC ABG pO2 45.8 L 79.1 L ABG pO2 ABG HCO3 ABG O2 Saturation ABG Base Excess ABG Hemoglobin 10.7 L 9.6 L ABG Oxyhemoglobin 74.5 L ABG Sodium 146.5 H 145.4 H ABG Potassium ABG Chloride 115.0 H 117.0 H ABG Glucose 146 H 106 H Carboxyhemoglobin 0.1 L 0 L Sodium 152 H Potassium Chloride 115.9 H Carbon Dioxide BUN Creatinine Glucose 134 H POC Glucose Calcium Magnesium Ferritin AST 69 H Alkaline Phosphatase 168 H Lactate Dehydrogenase C-Reactive Protein Total Protein 5.4 L Albumin 2.7 L Arterial Blood Glucose 146 H 106 H Arterial Blood Ionized Calcium Urine WBC (Auto) Coronavirus (PCR) Crossmatch 09/05/20 09/06/20 09/06/20 17:27 04:15 07:29 WBC RBC Hgb 7.8 L Hct 24.0 L MCV MCH MCHC RDW Lymph % (Auto) [place] % (Auto) Eos % (Auto) Lymph # (Auto) Seg Neutrophils % Seg Neutrophils # PT INR APTT D-Dimer Heparin Anti-Xa Level ABG pH POC ABG pCO2 POC ABG pO2 ABG pO2 184.9 H ABG HCO3 19.9 L ABG O2 Saturation 99.2 H ABG Base Excess -3.5 L ABG Hemoglobin 8.9 L ABG Oxyhemoglobin ABG Sodium ABG Potassium ABG Chloride ABG Glucose Carboxyhemoglobin Sodium Potassium Chloride Carbon Dioxide BUN Creatinine Glucose POC Glucose 124 H Calcium Magnesium Ferritin AST Alkaline Phosphatase Lactate Dehydrogenase C-Reactive Protein Total Protein Albumin Arterial Blood Glucose Arterial Blood Ionized Calcium Urine WBC (Auto) Coronavirus (PCR) Crossmatch 09/06/20 09/06/20 09/06/20 07:29 07:29 12:02 WBC 11.3 H RBC 2.83 L Hgb 7.8 L Hct 24.3 L MCV MCH MCHC RDW 17.7 H Lymph % (Auto) [place] % (Auto) Eos % (Auto) Lymph # (Auto) Seg Neutrophils % Seg Neutrophils # PT INR APTT D-Dimer Heparin Anti-Xa Level ABG pH POC ABG pCO2 POC ABG pO2 ABG pO2 ABG HCO3 ABG O2 Saturation ABG Base Excess ABG Hemoglobin ABG Oxyhemoglobin ABG Sodium ABG Potassium ABG Chloride ABG Glucose Carboxyhemoglobin Sodium 151 H Potassium Chloride 117.6 H Carbon Dioxide BUN 24 H Creatinine Glucose 159 H POC Glucose 158 H Calcium 7.7 L Magnesium Ferritin AST Alkaline Phosphatase Lactate Dehydrogenase C-Reactive Protein Total Protein Albumin Arterial Blood Glucose Arterial Blood Ionized Calcium Urine WBC (Auto) Coronavirus (PCR) Crossmatch 09/07/20 09/08/20 09/08/20 05:21 04:31 04:35 WBC RBC Hgb 7.4 L Hct 22.7 L MCV MCH MCHC RDW Lymph % (Auto) [place] % (Auto) Eos % (Auto) Lymph # (Auto) Seg Neutrophils % Seg Neutrophils # PT INR APTT D-Dimer Heparin Anti-Xa Level ABG pH POC ABG pCO2 49.1 H POC ABG pO2 46.0 L 58.6 L ABG pO2 ABG HCO3 ABG O2 Saturation ABG Base Excess ABG Hemoglobin 8.6 L 7.8 L ABG Oxyhemoglobin 87.7 L ABG Sodium 145.1 H ABG Potassium ABG Chloride 116.0 H 116.0 H ABG Glucose 238 H 255 H Carboxyhemoglobin Sodium Potassium Chloride Carbon Dioxide BUN Creatinine Glucose POC Glucose Calcium Magnesium Ferritin AST Alkaline Phosphatase Lactate Dehydrogenase C-Reactive Protein Total Protein Albumin Arterial Blood Glucose 238 H 255 H Arterial Blood Ionized Calcium Urine WBC (Auto) Coronavirus (PCR) Crossmatch 09/08/20 09/08/20 09/08/20 12:45 17:26 19:15 WBC RBC Hgb Hct MCV MCH MCHC RDW Lymph % (Auto) [place] % (Auto) Eos % (Auto) Lymph # (Auto) Seg Neutrophils % Seg Neutrophils # PT INR APTT D-Dimer Heparin Anti-Xa Level ABG pH POC ABG pCO2 POC ABG pO2 ABG pO2 ABG HCO3 ABG O2 Saturation ABG Base Excess ABG Hemoglobin ABG Oxyhemoglobin ABG Sodium ABG Potassium ABG Chloride ABG Glucose Carboxyhemoglobin Sodium Potassium Chloride Carbon Dioxide BUN Creatinine Glucose POC Glucose 270 H 294 H Calcium Magnesium Ferritin AST Alkaline Phosphatase Lactate Dehydrogenase C-Reactive Protein 4.90 H Total Protein Albumin Arterial Blood Glucose Arterial Blood Ionized Calcium Urine WBC (Auto) Coronavirus (PCR) Crossmatch 09/08/20 09/08/20 09/08/20 19:15 19:15 19:15 WBC RBC Hgb Hct MCV MCH MCHC RDW Lymph % (Auto) [place] % (Auto) Eos % (Auto) Lymph # (Auto) Seg Neutrophils % Seg Neutrophils # PT INR APTT D-Dimer 1449.12 H Heparin Anti-Xa Level ABG pH POC ABG pCO2 POC ABG pO2 ABG pO2 ABG HCO3 ABG O2 Saturation ABG Base Excess ABG Hemoglobin ABG Oxyhemoglobin ABG Sodium ABG Potassium ABG Chloride ABG Glucose Carboxyhemoglobin Sodium Potassium Chloride Carbon Dioxide BUN Creatinine Glucose POC Glucose Calcium Magnesium Ferritin 1485.0 H AST Alkaline Phosphatase Lactate Dehydrogenase 541 H C-Reactive Protein Total Protein Albumin Arterial Blood Glucose Arterial Blood Ionized Calcium Urine WBC (Auto) Coronavirus (PCR) Crossmatch 09/09/20 09/09/20 09/09/20 04:40 12:15 17:36 WBC RBC Hgb Hct MCV MCH MCHC RDW Lymph % (Auto) [place] % (Auto) Eos % (Auto) Lymph # (Auto) Seg Neutrophils % Seg Neutrophils # PT INR APTT D-Dimer Heparin Anti-Xa Level ABG pH POC ABG pCO2 POC ABG pO2 75.1 L ABG pO2 ABG HCO3 ABG O2 Saturation ABG Base Excess ABG Hemoglobin 10.7 L ABG Oxyhemoglobin 93.9 L ABG Sodium 146.7 H ABG Potassium ABG Chloride 113.0 H ABG Glucose 420 H Carboxyhemoglobin 0.2 L Sodium Potassium Chloride Carbon Dioxide BUN Creatinine Glucose POC Glucose 281 H 368 H Calcium Magnesium Ferritin AST Alkaline Phosphatase Lactate Dehydrogenase C-Reactive Protein Total Protein Albumin Arterial Blood Glucose 420 H Arterial Blood Ionized Calcium Urine WBC (Auto) Coronavirus (PCR) Crossmatch 09/10/20 09/10/20 09/10/20 04:45 07:15 11:51 WBC RBC Hgb 7.7 L Hct 24.8 L MCV MCH MCHC RDW Lymph % (Auto) [place] % (Auto) Eos % (Auto) Lymph # (Auto) Seg Neutrophils % Seg Neutrophils # PT INR APTT D-Dimer Heparin Anti-Xa Level ABG pH POC ABG pCO2 POC ABG pO2 ABG pO2 ABG HCO3 ABG O2 Saturation ABG Base Excess ABG Hemoglobin 8.0 L ABG Oxyhemoglobin ABG Sodium 150.8 H ABG Potassium ABG Chloride 117.0 H ABG Glucose 461 H Carboxyhemoglobin Sodium Potassium Chloride Carbon Dioxide BUN Creatinine Glucose POC Glucose 358 H Calcium Magnesium Ferritin AST Alkaline Phosphatase Lactate Dehydrogenase C-Reactive Protein Total Protein Albumin Arterial Blood Glucose 461 H Arterial Blood Ionized Calcium Urine WBC (Auto) Coronavirus (PCR) Crossmatch 09/10/20 09/10/20 09/11/20 17:28 23:29 04:55 WBC RBC Hgb Hct MCV MCH MCHC RDW Lymph % (Auto) [place] % (Auto) Eos % (Auto) Lymph # (Auto) Seg Neutrophils % Seg Neutrophils # PT INR APTT D-Dimer Heparin Anti-Xa Level ABG pH POC ABG pCO2 49.3 H POC ABG pO2 78.2 L ABG pO2 ABG HCO3 ABG O2 Saturation ABG Base Excess ABG Hemoglobin 8.2 L ABG Oxyhemoglobin ABG Sodium 155.0 H ABG Potassium ABG Chloride 120.0 H ABG Glucose 515 H Carboxyhemoglobin Sodium Potassium Chloride Carbon Dioxide BUN Creatinine Glucose POC Glucose 434 H 384 H Calcium Magnesium Ferritin AST Alkaline Phosphatase Lactate Dehydrogenase C-Reactive Protein Total Protein Albumin Arterial Blood Glucose 515 H Arterial Blood Ionized Calcium Urine WBC (Auto) Coronavirus (PCR) Crossmatch 09/11/20 09/11/20 09/11/20 05:03 06:10 06:10 WBC 11.1 H RBC 2.55 L Hgb 7.1 L Hct 23.4 L MCV MCH MCHC 30 L RDW 19.6 H Lymph % (Auto) [place] % (Auto) Eos % (Auto) Lymph # (Auto) Seg Neutrophils % Seg Neutrophils # PT INR APTT D-Dimer Heparin Anti-Xa Level ABG pH POC ABG pCO2 POC ABG pO2 ABG pO2 ABG HCO3 ABG O2 Saturation ABG Base Excess ABG Hemoglobin ABG Oxyhemoglobin ABG Sodium ABG Potassium ABG Chloride ABG Glucose Carboxyhemoglobin Sodium 159 H D Potassium Chloride 121.9 H Carbon Dioxide BUN 59 H Creatinine Glucose 530 H* POC Glucose 306 H Calcium 8.2 L Magnesium Ferritin AST Alkaline Phosphatase Lactate Dehydrogenase C-Reactive Protein Total Protein Albumin Arterial Blood Glucose Arterial Blood Ionized Calcium Urine WBC (Auto) Coronavirus (PCR) Crossmatch 09/11/20 09/11/20 09/11/20 08:12 12:13 17:04 WBC RBC Hgb Hct MCV MCH MCHC RDW Lymph % (Auto) [place] % (Auto) Eos % (Auto) Lymph # (Auto) Seg Neutrophils % Seg Neutrophils # PT INR APTT D-Dimer Heparin Anti-Xa Level ABG pH POC ABG pCO2 POC ABG pO2 ABG pO2 ABG HCO3 ABG O2 Saturation ABG Base Excess ABG Hemoglobin ABG Oxyhemoglobin ABG Sodium ABG Potassium ABG Chloride ABG Glucose Carboxyhemoglobin Sodium Potassium Chloride Carbon Dioxide BUN Creatinine Glucose 526 H* POC Glucose 374 H 398 H Calcium Magnesium Ferritin AST Alkaline Phosphatase Lactate Dehydrogenase C-Reactive Protein Total Protein Albumin Arterial Blood Glucose Arterial Blood Ionized Calcium Urine WBC (Auto) Coronavirus (PCR) Crossmatch 09/11/20 09/12/20 09/12/20 23:39 03:40 05:42 WBC RBC Hgb Hct MCV MCH MCHC RDW Lymph % (Auto) [place] % (Auto) Eos % (Auto) Lymph # (Auto) Seg Neutrophils % Seg Neutrophils # PT INR APTT D-Dimer Heparin Anti-Xa Level ABG pH POC ABG pCO2 POC ABG pO2 ABG pO2 77.1 L ABG HCO3 31.3 H ABG O2 Saturation ABG Base Excess 6.4 H ABG Hemoglobin 5.4 L ABG Oxyhemoglobin ABG Sodium ABG Potassium ABG Chloride ABG Glucose Carboxyhemoglobin Sodium Potassium Chloride Carbon Dioxide BUN Creatinine Glucose POC Glucose 355 H 286 H Calcium Magnesium Ferritin AST Alkaline Phosphatase Lactate Dehydrogenase C-Reactive Protein Total Protein Albumin Arterial Blood Glucose Arterial Blood Ionized Calcium Urine WBC (Auto) Coronavirus (PCR) Crossmatch 09/12/20 09/12/20 09/12/20 06:01 06:01 11:22 WBC RBC 2.36 L Hgb 6.6 L Hct 21.7 L MCV MCH MCHC 31 L RDW 19.9 H Lymph % (Auto) 8.5 L [place] % (Auto) Eos % (Auto) Lymph # (Auto) 0.8 L Seg Neutrophils % 86.6 H Seg Neutrophils # 8.5 H PT INR APTT D-Dimer Heparin Anti-Xa Level ABG pH POC ABG pCO2 POC ABG pO2 ABG pO2 ABG HCO3 ABG O2 Saturation ABG Base Excess ABG Hemoglobin ABG Oxyhemoglobin ABG Sodium ABG Potassium ABG Chloride ABG Glucose Carboxyhemoglobin Sodium 153 H Potassium Chloride 117.7 H Carbon Dioxide 32 H BUN 46 H Creatinine 0.7 L Glucose 358 H POC Glucose 350 H Calcium 7.3 L Magnesium Ferritin AST Alkaline Phosphatase Lactate Dehydrogenase C-Reactive Protein Total Protein Albumin Arterial Blood Glucose Arterial Blood Ionized Calcium Urine WBC (Auto) Coronavirus (PCR) Crossmatch 09/12/20 09/12/20 09/12/20 13:30 16:47 17:40 WBC RBC Hgb Hct MCV MCH MCHC RDW Lymph % (Auto) [place] % (Auto) Eos % (Auto) Lymph # (Auto) Seg Neutrophils % Seg Neutrophils # PT INR APTT D-Dimer Heparin Anti-Xa Level ABG pH POC ABG pCO2 POC ABG pO2 ABG pO2 ABG HCO3 ABG O2 Saturation ABG Base Excess ABG Hemoglobin ABG Oxyhemoglobin ABG Sodium ABG Potassium ABG Chloride ABG Glucose Carboxyhemoglobin Sodium Potassium Chloride Carbon Dioxide BUN Creatinine Glucose POC Glucose 389 H 402 H Calcium Magnesium Ferritin AST Alkaline Phosphatase Lactate Dehydrogenase C-Reactive Protein Total Protein Albumin Arterial Blood Glucose Arterial Blood Ionized Calcium Urine WBC (Auto) Coronavirus (PCR) Crossmatch See Detail 09/12/20 09/13/20 09/13/20 23:56 02:09 05:08 WBC RBC Hgb Hct MCV MCH MCHC RDW Lymph % (Auto) [place] % (Auto) Eos % (Auto) Lymph # (Auto) Seg Neutrophils % Seg Neutrophils # PT INR APTT D-Dimer Heparin Anti-Xa Level ABG pH 7.471 H POC ABG pCO2 POC ABG pO2 75.2 L ABG pO2 ABG HCO3 ABG O2 Saturation ABG Base Excess ABG Hemoglobin 11.5 L ABG Oxyhemoglobin ABG Sodium 158.8 H ABG Potassium ABG Chloride 122.0 H ABG Glucose 387 H Carboxyhemoglobin Sodium Potassium Chloride Carbon Dioxide BUN Creatinine Glucose POC Glucose 337 H 256 H Calcium Magnesium Ferritin AST Alkaline Phosphatase Lactate Dehydrogenase C-Reactive Protein Total Protein Albumin Arterial Blood Glucose 387 H Arterial Blood Ionized Calcium Urine WBC (Auto) Coronavirus (PCR) Crossmatch 09/13/20 09/13/20 09/13/20 09:07 09:07 11:44 WBC 12.2 H RBC Hgb 10.9 L D Hct 33.7 L D MCV MCH MCHC RDW 18.5 H Lymph % (Auto) 7.1 L [place] % (Auto) Eos % (Auto) Lymph # (Auto) 0.9 L Seg Neutrophils % 89.3 H Seg Neutrophils # 10.8 H PT INR APTT D-Dimer Heparin Anti-Xa Level ABG pH POC ABG pCO2 POC ABG pO2 ABG pO2 ABG HCO3 ABG O2 Saturation ABG Base Excess ABG Hemoglobin ABG Oxyhemoglobin ABG Sodium ABG Potassium ABG Chloride ABG Glucose Carboxyhemoglobin Sodium 160 H Potassium Chloride 121.1 H Carbon Dioxide 34 H BUN 51 H Creatinine Glucose 294 H POC Glucose 283 H Calcium Magnesium Ferritin AST Alkaline Phosphatase Lactate Dehydrogenase C-Reactive Protein Total Protein Albumin Arterial Blood Glucose Arterial Blood Ionized Calcium Urine WBC (Auto) Coronavirus (PCR) Crossmatch Chest x-ray: pending Allied health notes reviewed: nursing
[2020-09-13] MEDS ORDERED: LIPASE 10,500/PROTEASE 25,000/AMYLASE 43,750 (UNITS) DR CAP FEEDTUBE PRN (19:28)
[2020-09-13] MEDS ORDERED: SODIUM BICARBONATE 325 MG TAB FEEDTUBE PRN (19:28)
[2020-09-13] MEDS ORDERED: SIMPLE SYRUP 15 ML FEEDTUBE PRN ×2 (19:28)
[2020-09-13] MEDS: fentaNYL 100 MCG/2 ML INJ IV PRN (19:58)
[2020-09-13] MEDS: DEXTROSE 5% IN WATER 1,000 ML IV SCH (19:58)
[2020-09-13] MEDS: ACETAMINOPHEN 325 MG TAB PO PRN (19:59)
[2020-09-14] MEDS: DEXTROSE 5% IN WATER 1,000 ML IV SCH ×2 (05:19→17:45)
[2020-09-14] MEDS: INSULIN LISPRO 100 UNIT/ML VIAL 3 mL SUB-Q SCH ×3 (05:40→17:47)
[2020-09-14 06:34] LABS: Hematocrit 29.9 % (35.5-45.6); Hemoglobin 9.4 gm/dl (11.8-15.2); Mean Corpuscular HGB Conc 31 % (32-34); Mean Corpuscular Volume 93 fl (84-94); Platelet Count 170 K/mm3 (140-440); Red Cell Distribution Width 19.6 % (13.2-15.2)
[2020-09-14 08:03] LABS: BUN/Creatinine Ratio 54; Blood Urea Nitrogen 49 mg/dL (9-20); Hemolysis Index 14
--- NOTE | 2020-09-14 08:25 | Progress Note ---
Assessment and Plan Cultures: 08/16/2020 SARS CoV2 PCR: Negative 08/29/2020 SARS CoV2 PCR: Positive 08/15/2020 urine culture: No growth 08/24/2020 blood culture: No growth 08/28/2020 blood culture: No growth 08/28/2020 urine culture: No growth MRSA PCR negative 09/05/2020 Sputum +Barby A/P: 64-year-old male with hypertension, coronary artery disease, peripheral vascular disease, gout, alcohol dependence was admitted to the hospital on 08/15/2020 due to bleeding from his left foot which is a site of a previous surgery. Patient was noted to have wound dehiscence complicated by wound necrosis. Was seen by vascular surgery. He underwent a TMA. Due to fever, patient was receiving IV levofloxacin for UTI. COVID-19 test done on 08/29/2020 for placement reasons came back positive. Patient has been having intermittent fevers since 08/28/2020. 09/02/2020, a code MET was called due to tachypnea and labored respirations: #Shock: Probably from severe COVID-19. Noted low grade fever overnight #Critical COVID-19 Pneumonia: Patient with severe hypoxia, elevated inflammatory markers. Initially completed levofloxacin. Sputum with barby, likely a colonizer. Markers improving. S/p empiric 8 days of aztreonam and vanco #Acute hypoxic respiratory failure: remains intubated improving FIO2=40/p8 #Peripheral vascular disease, wound dehiscence and necrosis: underwent TMA by vascular surgery now with wound VAC/wound matrix/graft bone exposed. #Coronary artery disease, CHF #DM: uncontrolled with hyperglycemia. #Severe anemia: per ICU team #CAUTI: new UA c/w UTI Recs: -remove/exchange cabrales, low grade fever and UA with UTI. Cabrales placed on 08/19/2020 -F/u urine culture -start levaquin x 3 days -monitor anemia/evaluation -Completed steroids -Completed remdesivir -continue wound care -monitor fever MD [facility] ([facility]) Office [phone] Subjective Date of service: 09/14/20 Principal diagnosis: Ac hypoxemic resp failure; COVID-19; Pneumonia; Sepsis; PVD; L. foot ulcer Interval history: Remains intubated, FiO2 40, p10, noted low grade fever 100.8, no hypotension. Objective - Exam Narrative Exam: Physical Exam: reviewed ED and hospitalist notes. Deferred to prevent COVID-19 transmission. - Constitutional Vitals: Vital Signs Temp Pulse Resp BP Pulse Ox 99.8 F H 118 H 21 115/52 93 09/14/20 03:26 09/14/20 07:43 09/14/20 06:00 09/14/20 07:43 09/14/20 07:43 Temperature -Last 24 Hours Temperature 99.8 F Temperature 99.4 F Temperature 100.8 F Temperature 98.4 F Temperature 97.2 F - Labs CBC & Chem 7: 09/14/20 06:25 09/14/20 06:25 Labs: Abnormal lab results 09/13/20 09/13/20 09/13/20 Range/Units 09:07 09:07 11:44 WBC 12.2 H (4.5-11.0) K/mm3 RBC (3.65-5.03) M/mm3 Hgb 10.9 L D (11.8-15.2) gm/dl Hct 33.7 L D (35.5-45.6) % MCHC (32-34) % RDW 18.5 H (13.2-15.2) % Lymph % (Auto) 7.1 L (13.4-35.0) % Lymph # (Auto) 0.9 L (1.2-5.4) K/mm3 Seg Neutrophils % 89.3 H (40.0-70.0) % Seg Neutrophils # 10.8 H (1.8-7.7) K/mm3 POC ABG pO2 (83-108) mmHg ABG Hemoglobin (12.0-17.5) ABG Sodium (136.0-145.0) mmol/L ABG Chloride (98-107) mmol/L ABG Glucose (65-95) mg/dL Sodium 160 H (137-145) mmol/L Chloride 121.1 H (98-107) mmol/L Carbon Dioxide 34 H (22-30) mmol/L BUN 51 H (9-20) mg/dL Glucose 294 H (75-100) mg/dL POC Glucose 283 H (70-105) mg/dL Calcium (8.4-10.2) mg/dL Magnesium (1.7-2.3) mg/dL Arterial Blood Glucose (65-95) mg/dL 09/13/20 09/13/20 09/14/20 Range/Units 16:45 23:35 04:58 WBC (4.5-11.0) K/mm3 RBC (3.65-5.03) M/mm3 Hgb (11.8-15.2) gm/dl Hct (35.5-45.6) % MCHC (32-34) % RDW (13.2-15.2) % Lymph % (Auto) (13.4-35.0) % Lymph # (Auto) (1.2-5.4) K/mm3 Seg Neutrophils % (40.0-70.0) % Seg Neutrophils # (1.8-7.7) K/mm3 POC ABG pO2 63.7 L (83-108) mmHg ABG Hemoglobin 10.2 L (12.0-17.5) ABG Sodium 149.6 H (136.0-145.0) mmol/L ABG Chloride 116.0 H (98-107) mmol/L ABG Glucose 341 H (65-95) mg/dL Sodium (137-145) mmol/L Chloride (98-107) mmol/L Carbon Dioxide (22-30) mmol/L BUN (9-20) mg/dL Glucose (75-100) mg/dL POC Glucose 265 H 306 H (70-105) mg/dL Calcium (8.4-10.2) mg/dL Magnesium (1.7-2.3) mg/dL Arterial Blood Glucose 341 H (65-95) mg/dL 09/14/20 09/14/20 09/14/20 Range/Units 05:18 06:25 06:25 WBC 11.2 H (4.5-11.0) K/mm3 RBC 3.20 L (3.65-5.03) M/mm3 Hgb 9.4 L (11.8-15.2) gm/dl Hct 29.9 L (35.5-45.6) % MCHC 31 L (32-34) % RDW 19.6 H (13.2-15.2) % Lymph % (Auto) (13.4-35.0) % Lymph # (Auto) (1.2-5.4) K/mm3 Seg Neutrophils % (40.0-70.0) % Seg Neutrophils # (1.8-7.7) K/mm3 POC ABG pO2 (83-108) mmHg ABG Hemoglobin (12.0-17.5) ABG Sodium (136.0-145.0) mmol/L ABG Chloride (98-107) mmol/L ABG Glucose (65-95) mg/dL Sodium 156 H (137-145) mmol/L Chloride 116.4 H (98-107) mmol/L Carbon Dioxide (22-30) mmol/L BUN 49 H (9-20) mg/dL Glucose 337 H (75-100) mg/dL POC Glucose 272 H (70-105) mg/dL Calcium 8.0 L (8.4-10.2) mg/dL Magnesium (1.7-2.3) mg/dL Arterial Blood Glucose (65-95) mg/dL 09/14/20 Range/Units 06:25 WBC (4.5-11.0) K/mm3 RBC (3.65-5.03) M/mm3 Hgb (11.8-15.2) gm/dl Hct (35.5-45.6) % MCHC (32-34) % RDW (13.2-15.2) % Lymph % (Auto) (13.4-35.0) % Lymph # (Auto) (1.2-5.4) K/mm3 Seg Neutrophils % (40.0-70.0) % Seg Neutrophils # (1.8-7.7) K/mm3 POC ABG pO2 (83-108) mmHg ABG Hemoglobin (12.0-17.5) ABG Sodium (136.0-145.0) mmol/L ABG Chloride (98-107) mmol/L ABG Glucose (65-95) mg/dL Sodium (137-145) mmol/L Chloride (98-107) mmol/L Carbon Dioxide (22-30) mmol/L BUN (9-20) mg/dL Glucose (75-100) mg/dL POC Glucose (70-105) mg/dL Calcium (8.4-10.2) mg/dL Magnesium 2.60 H (1.7-2.3) mg/dL Arterial Blood Glucose (65-95) mg/dL
--- NOTE | 2020-09-14 08:37 | Progress Note ---
Assessment and Plan Assessment and plan: 64 YO Male HD #26 with PVD, Coronavirus Infection, Acute Respiratory Failure, Sepsis, Pneumonia, Toxic Encephalopathy, Necrosis of Surgical wound. Patient resting in bed. No acute decompensation overnight. No improvement overnight. Patient remains critically ill. Patient prognosis is poor to guarded. 09/10: Significant elevated blood sugar. Patient with labile blood sugar issues. Aspiration precautions continue vent weaning per grill cook. Continue antibiotics management. Patient with noted hypernatremia we will continue to monitor sodium levels. Also with anemia of chronic disease we will monitor H&H closely. 09/11; Patient remains critically ill, continue wound care, monitor and adjust insulin for better control. 09/12: Noted Anemia, Will give 2 units PRBC. Continue supportive care, wean from vent as tolerated, Continue to monitor sodium level. IR input noted, adjust further insulin 09/13: Adjust free water to Q2Hr, monitor H/H, Check labs, continue supportive care. Insulin further adjusted for better control 09/14: Patient with Hypotension, will discuss with metal melter about adjusting pressors. Renae exchange today, Continue abx (1) severe sepsis with shock Current Visit: Yes Status: Acute Plan to address problem: Sepsis protocol: CBC, CMP, IV fluid resuscitation therapy as clinically indicated, IV antibiotic therapy, monitor urine output every shift, maintain mean arterial blood pressure greater than or equal to 65, (2) Acute hypoxemic respiratory failure Current Visit: Yes Status: Acute Plan to address problem: Wean vent as tolerated, daily ABG, spontaneous breathing trial daily, chest x- ray, sedation holiday, supportive care. (3) Necrosis of surgical wound Current Visit: Yes Status: Acute Plan to address problem: Surgery team consulted. pain control, supportive care. Further care as per vascular surgery team. (4) CHF (congestive heart failure) Current Visit: No Status: Chronic Qualifiers: Heart failure chronicity: chronic Plan to address problem: Strict I/O, monitor urine output every shift, daily weight, monitor fluid balance, afterload reduction, blood pressure control. (5) Hypertension Current Visit: Yes Status: Acute Qualifiers: Hypertension type: essential hypertension Qualified Code(s): I10 - Essential (primary) hypertension Plan to address problem: Monitor blood pressure every shift, continue medical management (6) UTI (urinary tract infection) Current Visit: Yes Status: Acute Qualifiers: Encounter type: initial encounter Plan to address problem: CBC, CMP, urinalysis, IV antibiotic therapy. (7) Coronavirus infection Current Visit: Yes Status: Acute Plan to address problem: Coronavirus protocol: IV antibiotic therapy, IV steroid therapy, supplemental oxygen, vitamin C supplementation, zinc supplementation, (8) peripheral vascular disease (9) DVT prophylaxis Current Visit: Yes Status: Acute Plan to address problem: SCD to bilateral lower extremities while in bed, anticoagulation as per surgical team (9) Toxic metabolic encephalopathy Current Visit: Yes Status: Acute Plan to address problem: Supportive care, treat sepsis, (10) Advance care planning Current Visit: Yes Status: Acute Plan to address problem: Disease education conducted, patient is full code, prognosis discussed, care plan discussed, patient knowledges understanding and agreement with care plan, +30 minutes (10) history of alcohol abuse [11] history of gout [12] left lower extremity/left foot ulcer The high probability of a clinically significant, sudden or life threatening deterioration of the [cardiac, pulmonary, renal, infectious disease] system(s) required my full and direct attention, intervention and personal management. The aggregate critical care time was [65] minutes. This time is in addition to time spent performing reported procedures but includes the following: [x] Data Review and interpretation [x] Patient assessment and monitoring of vital signs [x] Documentation [x] Medication orders and management History Interval history: Patient seen and examined remains on full mechanical ventilation Hospitalist Physical - Physical exam Narrative exam: General appearance: Present: Mild distress on full ventilatory support. Limited exam due to PPE conservation during COVID Pandemic, STILL WITH MOVEMENT NON PURPOSEFUL - EENT Eyes: Present: miosis ENT: hearing decreased - Neck Neck: Present: supple - Respiratory Respiratory effort: labored Respiratory: bilateral: diminished, rhonchi - Cardiovascular Rhythm: regular Heart Sounds: Present: S1 & S2 - Extremities Extremity abnormal: edema Peripheral Pulses: abnormal (Capillary refill greater than 3.5 seconds) - Abdominal General gastrointestinal: soft, non-tender, non-distended - Integumentary Integumentary: Present: dressing and wound vac to lower ext - Psychiatric Psychiatric: no appropriate mood/affect, no intact judgment & insight, no memory intact - Neurologic Neurologic: CNII-XII intact, no gait normal - Constitutional Vitals: Temp Pulse Resp BP Pulse Ox 99.8 F H 118 H 21 115/52 93 09/14/20 03:26 09/14/20 07:43 09/14/20 06:00 09/14/20 07:43 09/14/20 07:43 General appearance: Present: no acute distress, well-nourished Results - Labs CBC & Chem 7: 09/14/20 06:25 09/14/20 06:25 Labs: Laboratory Last Values WBC 11.2 K/mm3 (4.5-11.0) H 09/14/20 06:25 RBC 3.20 M/mm3 (3.65-5.03) L 09/14/20 06:25 Hgb 9.4 gm/dl (11.8-15.2) L 09/14/20 06:25 Hct 29.9 % (35.5-45.6) L 09/14/20 06:25 MCV 93 fl (84-94) 09/14/20 06:25 MCH 29 pg (28-32) 09/14/20 06:25 MCHC 31 % (32-34) L 09/14/20 06:25 RDW 19.6 % (13.2-15.2) H 09/14/20 06:25 Plt Count 170 K/mm3 (140-440) 09/14/20 06:25 Lymph % (Auto) 7.1 % (13.4-35.0) L 09/13/20 09:07 [place] % (Auto) 3.0 % (0.0-7.3) 09/13/20 09:07 Eos % (Auto) 0.0 % (0.0-4.3) 09/13/20 09:07 Baso % (Auto) 0.6 % (0.0-1.8) 09/13/20 09:07 Lymph # (Auto) 0.9 K/mm3 (1.2-5.4) L 09/13/20 09:07 [place] # (Auto) 0.4 K/mm3 (0.0-0.8) 09/13/20 09:07 Eos # (Auto) 0.0 K/mm3 (0.0-0.4) 09/13/20 09:07 Baso # (Auto) 0.1 K/mm3 (0.0-0.1) 09/13/20 09:07 Add Manual Diff Complete 09/13/20 09:07 Seg Neutrophils % 89.3 % (40.0-70.0) H 09/13/20 09:07 Nucleated RBC % Not Reportable 09/13/20 09:07 Seg Neutrophils # 10.8 K/mm3 (1.8-7.7) H 09/13/20 09:07 WBC Morphology Not Reportable 09/13/20 09:07 Hypersegmented Neuts Not Reportable 09/13/20 09:07 Hyposegmented Neuts Not Reportable 09/13/20 09:07 Hypogranular Neuts Not Reportable 09/13/20 09:07 Smudge Cells Not Reportable 09/13/20 09:07 Toxic Granulation Not Reportable 09/13/20 09:07 Toxic Vacuolation Not Reportable 09/13/20 09:07 Dohle Bodies Not Reportable 09/13/20 09:07 Pelger-Huet Anomaly Not Reportable 09/13/20 09:07 [place] Rods Not Reportable 09/13/20 09:07 Platelet Estimate Not Reportable 09/13/20 09:07 Clumped Platelets Not Reportable 09/13/20 09:07 Plt Clumps, EDTA Not Reportable 09/13/20 09:07 Large Platelets Not Reportable 09/13/20 09:07 Giant Platelets Not Reportable 09/13/20 09:07 Platelet Satelliting Not Reportable 09/13/20 09:07 Plt Morphology Comment Not Reportable 09/13/20 09:07 RBC Morphology Not Reportable 09/13/20 09:07 Dimorphic RBCs Not Reportable 09/13/20 09:07 Polychromasia Not Reportable 09/13/20 09:07 Hypochromasia Not Reportable 09/13/20 09:07 Poikilocytosis Not Reportable 09/13/20 09:07 Anisocytosis Not Reportable 09/13/20 09:07 Microcytosis Not Reportable 09/13/20 09:07 Macrocytosis Not Reportable 09/13/20 09:07 Spherocytes Not Reportable 09/13/20 09:07 Pappenheimer Bodies Not Reportable 09/13/20 09:07 Sickle Cells Not Reportable 09/13/20 09:07 Target Cells Not Reportable 09/13/20 09:07 Tear Drop Cells Not Reportable 09/13/20 09:07 Ovalocytes Not Reportable 09/13/20 09:07 Helmet Cells Not Reportable 09/13/20 09:07 Heredia-Mclean Bodies Not Reportable 09/13/20 09:07 Jachin Rings Not Reportable 09/13/20 09:07 [place] Cells Not Reportable 09/13/20 09:07 Bite Cells Not Reportable 09/13/20 09:07 Crenated Cell Not Reportable 09/13/20 09:07 Elliptocytes Not Reportable 09/13/20 09:07 Acanthocytes (Spur) Not Reportable 09/13/20 09:07 Rouleaux Not Reportable 09/13/20 09:07 Hemoglobin C Crystals Not Reportable 09/13/20 09:07 Schistocytes Not Reportable 09/13/20 09:07 Malaria parasites Not Reportable 09/13/20 09:07 Ozzie Bodies Not Reportable 09/13/20 09:07 Hem Pathologist Commnt No 09/13/20 09:07 PT 15.5 Sec. (12.2-14.9) H 09/02/20 15:55 INR 1.23 (0.87-1.13) H 09/02/20 15:55 APTT 50.2 Sec. (24.2-36.6) H 09/02/20 15:55 D-Dimer 1449.12 ng/mlDDU (0-234) H 09/08/20 19:15 Heparin Anti-Xa Level 0.47 U.I./ml (0.3-0.7) 09/06/20 07:29 ABG pH 7.427 (7.320-7.450) 09/14/20 04:58 POC ABG pCO2 44.4 mmHg (32.0-48.0) 09/14/20 04:58 ABG pCO2 48.6 mm Hg 09/12/20 03:40 POC ABG pO2 63.7 mmHg (83-108) L 09/14/20 04:58 ABG pO2 77.1 mm Hg (80.0-90.0) L 09/12/20 03:40 POC ABG HCO3 28.6 09/14/20 04:58 ABG HCO3 31.3 mmol/L (20.0-26.0) H 09/12/20 03:40 ABG O2 Saturation 97.2 % (95.0-99.0) 09/12/20 03:40 ABG O2 Content 7.4 (0.0-44) 09/12/20 03:40 POC ABG Base Excess 3.8 09/14/20 04:58 ABG Base Excess 6.4 mmol/L (-2.0-3.0) H 09/12/20 03:40 ABG Hemoglobin 10.2 (12.0-17.5) L 09/14/20 04:58 ABG Oxyhemoglobin 94 (94-98) 09/13/20 02:09 ABG Carboxyhemoglobin 1.6 % (0.0-5.0) 09/12/20 03:40 ABG Methemoglobin 0.3 (0.0-1.5) 09/13/20 02:09 ABG Sodium 149.6 mmol/L (136.0-145.0) H 09/14/20 04:58 ABG Potassium 3.9 mmol/L (3.40-4.50) 09/14/20 04:58 ABG Chloride 116.0 mmol/L (98-107) H 09/14/20 04:58 ABG Glucose 341 mg/dL (65-95) H 09/14/20 04:58 Oxyhemoglobin 95.4 % (95.0-99.0) 09/12/20 03:40 Carboxyhemoglobin 0.9 (0.5-1.5) 09/13/20 02:09 FiO2 40 09/14/20 04:58 Sodium 156 mmol/L (137-145) H 09/14/20 06:25 Potassium 4.4 mmol/L (3.6-5.0) 09/14/20 06:25 Chloride 116.4 mmol/L (98-107) H 09/14/20 06:25 Carbon Dioxide 28 mmol/L (22-30) 09/14/20 06:25 Anion Gap 16 mmol/L 09/14/20 06:25 BUN 49 mg/dL (9-20) H 09/14/20 06:25 Creatinine 0.9 mg/dL (0.8-1.3) 09/14/20 06:25 Estimated GFR > 60 ml/min 09/14/20 06:25 BUN/Creatinine Ratio 54 % 09/14/20 06:25 Glucose 337 mg/dL (75-100) H 09/14/20 06:25 POC Glucose 272 mg/dL (70-105) H 09/14/20 05:18 Lactic Acid 1.40 mmol/L (0.7-2.0) 09/02/20 15:55 Calcium 8.0 mg/dL (8.4-10.2) L 09/14/20 06:25 Phosphorus 4.20 mg/dL (2.5-4.5) 09/14/20 06:25 Magnesium 2.60 mg/dL (1.7-2.3) H 09/14/20 06:25 Ferritin 1485.0 ng/mL (30.0-300.0) H 09/08/20 19:15 Total Bilirubin 0.40 mg/dL (0.1-1.2) 09/05/20 07:17 AST 69 units/L (5-40) H 09/05/20 07:17 ALT 28 units/L (7-56) 09/05/20 07:17 Alkaline Phosphatase 168 units/L (35-129) H 09/05/20 07:17 Lactate Dehydrogenase 541 units/L (91-180) H 09/08/20 19:15 C-Reactive Protein 4.90 mg/dL (0.00-1.30) H 09/08/20 19:15 Total Protein 5.4 g/dL (6.3-8.2) L 09/05/20 07:17 Albumin 2.7 g/dL (3.9-5) L 09/05/20 07:17 Albumin/Globulin Ratio 1.0 % 09/05/20 07:17 Procalcitonin 0.16 ng/mL (<0.15) 09/08/20 19:15 Arterial Blood Glucose 341 mg/dL (65-95) H 09/14/20 04:58 Arterial Blood Ionized Calcium 4.8 mg/dL (4.6-5.3) 09/14/20 04:58 Urine Color Yellow (Yellow) 08/15/20 Unknown Urine Turbidity Clear (Clear) 08/15/20 Unknown Urine pH 6.0 (5.0-7.0) 08/15/20 Unknown Ur Specific [place] 1.017 (1.003-1.030) 08/15/20 Unknown Urine Protein 100 mg/dl mg/dL (Negative) 08/15/20 Unknown Urine Glucose (UA) 50 mg/dL (Negative) 08/15/20 Unknown Urine Ketones Neg mg/dL (Negative) 08/15/20 Unknown Urine Blood Lg (Negative) 08/15/20 Unknown Urine Nitrite Neg (Negative) 08/15/20 Unknown Urine Bilirubin Neg (Negative) 08/15/20 Unknown Urine Urobilinogen < 2.0 mg/dL (<2.0) 08/15/20 Unknown Ur Leukocyte Esterase Sm (Negative) 08/15/20 Unknown Urine WBC (Auto) 31.0 /HPF (0.0-6.0) H 08/15/20 Unknown Urine RBC (Auto) 46.0 /HPF (0.0-6.0) 08/15/20 Unknown Urine Mucus Few /HPF 08/15/20 Unknown Nasal Screen MRSA (PCR) Negative (Negative) 09/06/20 12:41 Vancomycin Trough 14.2 ug/mL (5.0-20.0) 09/05/20 11:12 Coronavirus (PCR) Positive (Negative) A 08/29/20 Unknown Blood Type O POSITIVE 09/12/20 13:30 Antibody Screen Negative 09/12/20 13:30 Crossmatch See Detail 09/12/20 13:30 Renae/IV: Voiding Method Indwelling Catheter IV Catheter Type [Right Hand] INT / Saline Lock IV Catheter Type [Right Upper PICC Line arm] IV Catheter Type [Right Wrist] INT / Saline Lock IV Catheter Type [Right INT / Saline Lock Forearm] IV Catheter Type [Left Hand] INT / Saline Lock Active Medications - Current Medications Current Medications: Generic Name Dose Route Start Last Admin Trade Name Freq PRN Reason Stop Dose Admin Acetaminophen 650 mg 08/15/20 18:13 09/13/20 19:59 Acetaminophen 325 Mg Tab PO 650 mg Q4H PRN Administration Pain MILD(1-3)/Fever >100.5/REYES Albuterol 2.5 mg 08/15/20 18:13 08/20/20 12:53 Albuterol 2.5 Mg/3 Ml Nebu IH 2.5 mg Q4HRT PRN Administration Shortness Of Breath Amlodipine Besylate 10 mg 08/16/20 10:00 09/13/20 09:11 Amlodipine 10 Mg Tab PO 10 mg QDAY DELFINO Administration Lipase/Protease/Amylase 1 each 09/06/20 11:37 Lipase 10,500/Protease 25,000/Amylase 43,750 (Units) Dr Lisa FEEDTJACOBO PRN PRN For Clogged Feeding Tube Lipase/Protease/Amylase 1 each 09/13/20 19:28 Lipase 10,500/Protease 25,000/Amylase 43,750 (Units) Dr Lisa FEEDTJACOBO PRN PRN For Clogged Feeding Tube Ascorbic Acid 500 mg 09/03/20 22:00 09/13/20 22:30 Ascorbic Acid 500 Mg Tab PO 500 mg BID DELFINO Administration Atorvastatin Calcium 40 mg 08/15/20 22:00 09/13/20 22:30 Atorvastatin 40 Mg Tab PO 40 mg QHS DELFINO Administration Cilostazol 100 mg 08/15/20 22:00 09/13/20 22:30 Cilostazol 100 Mg Tab PO 100 mg BID DELFINO Administration Clopidogrel Bisulfate 75 mg 08/16/20 10:00 09/13/20 09:12 Clopidogrel 75 Mg Tab PO 75 mg QDAY DELFINO Administration Dextrose 50 ml 09/10/20 13:56 Dextrose 50% In Water (25gm) 50 Ml Syringe IV Q30MIN PRN Hypoglycemia Protocol Enoxaparin Sodium 90 mg 09/05/20 22:00 09/13/20 22:29 Enoxaparin 100 Mg/1 Ml Inj SUB-Q 90 mg Q12HR DELFINO Administration Fentanyl 50 mcg 09/05/20 05:23 09/13/20 19:58 Fentanyl 100 Mcg/2 Ml Inj IV 50 mcg Q10MIN PRN Administration ANALGESIA Folic Acid 1 mg 08/16/20 10:00 09/13/20 09:12 Folic Acid 1 Mg Tab PO 1 mg QDAY DELFINO Administration Hydrophilic Ointment 1 applic 09/05/20 05:23 Lip Therapy Vaseline TP Q2HR PRN Dry Lips Sodium Chloride 500 mls @ 1 mls/hr 09/02/20 13:41 09/02/20 18:53 Nacl 0.9% 500 Ml IV 1 mls/hr DIRECT PRN Administration ARTERIAL LINE FLUSH Norepinephrine 4 mg in 250 mls @ 7.5 mls/hr 09/02/20 15:00 09/07/20 06:50 Levophed Drip 4 Mg/Ns 250 Ml IV 0 mcg/min TITR DELFINO 0 mls/hr Titration Protocol 2 MCG/MIN Vasopressin 20 unit/ Sodium 101 mls @ 9.09 mls/hr 09/02/20 16:00 Chloride IV TITR DELFINO Protocol 0.03 UNITS/MIN Fentanyl Citrate 2,000 mcg in 100 mls @ 4.465 mls/hr 09/05/20 06:00 09/11/20 19:07 Fentanyl Drip Premix IV 0 mcg/kg/hr TITR DELFINO 0 mls/hr Titration Protocol 1 MCG/KG/HR Midazolam HCl 100 mg/ Sodium 100 mls @ 2 mls/hr 09/05/20 06:00 09/06/20 08:30 Chloride IV 0 mg/hr TITR DELFINO 0 mls/hr Titration Protocol 2 MG/HR Sodium Chloride 500 mls @ 0 mls/hr 09/12/20 12:40 09/12/20 17:22 Nacl 0.9% 500 Ml IV 250 mls/hr ONCE DELFINO Administration As Directed Dextrose 1,000 mls @ 100 mls/hr 09/13/20 20:00 09/14/20 05:19 D5w IV 09/17/20 05:59 100 mls/hr DIRECT DELFINO Administration Levofloxacin/Dextrose 750 mg in 150 mls @ 100 mls/hr 09/14/20 10:00 Levaquin 750mg/150ml IV 09/17/20 09:59 Q24H DELFINO Protocol Insulin Glargine 30 units 09/13/20 20:00 09/13/20 20:40 Insulin Glargine 100 Units/Ml SUB-Q 30 units BIDDIAB DELFINO Administration Insulin Human Lispro 0 unit 09/10/20 18:00 09/14/20 05:40 Insulin Lispro 100 Unit/Ml Vial 3 Ml SUB-Q 6 unit Q6H DELFINO Administration Protocol Lansoprazole 30 mg 09/05/20 10:00 09/13/20 09:12 Lansoprazole 30 Mg Solutab FEEDTUBE 30 mg QDAY DELFINO Administration Loperamide HCl 2 mg 08/26/20 23:00 08/28/20 12:51 Loperamide 2 Mg Cap PO 2 mg PRN PRN Administration Diarrhea Lorazepam 1 mg 09/06/20 17:25 09/14/20 04:13 Lorazepam 2 Mg/Ml Vial IV 1 mg Q4H PRN Administration Anxiety Metoprolol Tartrate 50 mg 08/15/20 22:00 09/13/20 22:30 Metoprolol Tartrate 50 Mg Tab PO 50 mg BID DELFINO Administration Midazolam HCl 2 mg 09/05/20 05:23 09/05/20 05:56 Midazolam 2 Mg/2 Ml Inj IV 2 mg Q10MIN PRN Administration Sedation Multi-Ingred Cream/Lotion/Oil/Oint 1 applic 09/05/20 05:23 Mineral Oil/Petrolatum, White Ophth Oint 3.5 Gm OU Q4HR PRN Dry Eye(s) Ondansetron HCl 4 mg 08/15/20 18:13 08/18/20 17:46 Ondansetron 4 Mg/2 Ml Inj IV 4 mg Q8H PRN Administration Nausea And Vomiting Simple Syrup 15 ml 09/06/20 11:37 Simple Syrup 15 Ml FEEDTUBE PRN PRN Hypoglycemia Simple Syrup 30 ml 09/06/20 11:37 Simple Syrup 15 Ml FEEDTUBE PRN PRN Hypoglycemia Simple Syrup 15 ml 09/13/20 19:28 Simple Syrup 15 Ml FEEDTUBE PRN PRN Hypoglycemia Simple Syrup 30 ml 09/13/20 19:28 Simple Syrup 15 Ml FEEDTUBE PRN PRN Hypoglycemia Sodium Bicarbonate 325 mg 09/06/20 11:37 Sodium Bicarbonate 325 Mg Tab FEEDTUBE PRN PRN For Clogged Feeding Tube Sodium Bicarbonate 325 mg 09/13/20 19:28 Sodium Bicarbonate 325 Mg Tab FEEDTUBE PRN PRN For Clogged Feeding Tube Sodium Chloride 10 ml 08/15/20 22:00 09/13/20 09:13 Sodium Chloride 0.9% 10 Ml Flush Syringe IV 10 ml BID DELFINO Administration Sodium Chloride 10 ml 08/15/20 18:13 Sodium Chloride 0.9% 10 Ml Flush Syringe IV PRN PRN LINE FLUSH Thiamine HCl 100 mg 08/16/20 10:00 09/13/20 09:12 Thiamine 100 Mg Tab PO 100 mg QDAY DELFINO Administration Zinc Sulfate 220 mg 09/03/20 22:00 09/13/20 22:30 Zinc Sulfate 220 Mg Cap PO 220 mg BID DELFINO Administration Nutrition/Malnutrition Assess - Dietary Evaluation Nutrition/Malnutrition Findings: Nutrition Notes Start: 08/21/20 14:41 Freq: Status: Active Protocol: Document 09/12/20 12:45 AT (Rec: 09/12/20 13:09 AT [id number]) Co-Sign 09/12/20 12:45 LP Nutrition Notes Initial or Follow up Reassessment Current Diagnosis Coronary Artery Disease,Sepsis ,Hypertension,Heart Failure, Respiratory Failure, Hyperlipidemia Other Pertinent Diagnosis COVID(+),PVD, ETOH dep, pneu, gout, (L) foot ulcer Current Diet Vital HP at 70 mL/hr Labs/Tests Na 153 BUN 46 Cr 0.7 BG 358 Ca 7.1 Pertinent Medications Decadron Lantus Humalog 1/2NS at 75 mL/hr Thiamin Zinc Sulfate Height 5 ft 4 in Weight 81.7 kg [place] Body Weight (kg) 59.09 BMI 30.9 Weight change and time frame Wt loss of 8.5% in one week. Weight Status Obese Subjective/Other Information Follolw-up for TF tolerance and labs. Pt remains on vent. Nanny Babysitter observed that pt is at goal rate of 70 mL/hr. Per RN, pt is receiving 300mL q4hr per MD for hypernatremia. Percent of energy/protein needs met: 86%/100% Burn Absent Trauma Absent GI Symptoms Diarrhea Difficulty In Swallowing Current % PO Negligible Minimum of two criteria Yes Interpretation of Weight Loss (severe) >2% in 1 week Fluid Accumulation Mild (non-severe) Reduced Research Project Coordinator Strength N/A (non-severe) #3 Nutrition Diagnosis Malnutrition Etiology chronic illness As Evidenced by Signs and Symptoms 8.5% weight loss in one week and edema in the extremities. #2 Nutrition Diagnosis Inadequate oral intake Diagnosis Progress(for reassessment Continues documentation) #1 Nutrition Diagnosis Increased nutrient needs ( specify in comment below) Diagnosis Progress(for reassessment Continues documentation) Is patient on ventilator? Yes Is Patient Ambulatory and/or Out of Bed No REE-([place]-[facility]. Jeor-confined to bed) [phone] Calculation Used for Recommendations [facility] Additional Notes PRO needs: >118g (>2g/kg IBW) Fluid needs: 1mL/kcal Nutrition Intervention Change Diet Order: Continue TF Nutrition Support: Vital High Protein at 70ml/hr For hypernatremia flush 300ml q4h, once hypernatremia is resolved flush 100ml q4h Kcal 1,680 Protein (gm) 147 Fluid (mL) 1,404 Add Supplement/Snack (indicate name/kcal [place] BID /protein ) Provides kCal: 190 Provides Protein (gm) 5 Goal #1 Meet at least 80% of estimated energy and protein needs via TF Goal #2 Wound healing Anticipated Discharge Needs: Unable to determine at this time Follow-Up By: 09/14/20 Additional Comments F/U for TF tolerance, wt, and labs
[2020-09-14] MEDS: ENOXAPARIN 100 MG/1 ML INJ SUB-Q SCH (09:51)
[2020-09-14] MEDS: INSULIN GLARGINE 100 UNITS/ML SUB-Q SCH ×2 (09:51→16:31)
[2020-09-14] MEDS: CILOSTAZOL 100 MG TAB PO SCH ×2 (09:59→22:00)
[2020-09-14] MEDS: THIAMINE 100 MG TAB PO SCH (09:59)
[2020-09-14] MEDS: FOLIC ACID 1 MG TAB PO SCH (09:59)
[2020-09-14] MEDS: amLODIPine 10 MG TAB PO SCH ×2 (10:00→10:13)
[2020-09-14] MEDS: METOPROLOL TARTRATE 50 MG TAB PO SCH ×3 (10:00→21:54)
[2020-09-14] MEDS ORDERED: levoFLOXacin 750 MG TAB PO SCH (10:00)
[2020-09-14] MEDS: ASCORBIC ACID 500 MG TAB PO SCH ×2 (10:00→21:54)
[2020-09-14] MEDS: ZINC SULFATE 220 MG CAP PO SCH ×2 (10:00→21:54)
[2020-09-14] MEDS: CLOPIDOGREL 75 MG TAB PO SCH (10:00)
[2020-09-14] MEDS: LANSOPRAZOLE 30 MG SOLUTAB FEEDTUBE SCH (10:00)
[2020-09-14] MEDS ORDERED: SODIUM CHLORIDE 0.9% 1000 ML 1,000 ML IV ONE (11:00)
[2020-09-14] MEDS ORDERED: AMIODARONE 150 MG in DEXTROSE 5% IN WATER 97 ML IV ONE ×2 (13:30→19:38)
[2020-09-14] MEDS: VASOPRESSIN 20 UNIT in SODIUM CHLORIDE 0.9% 100 ML IV SCH (14:15)
[2020-09-14] MEDS: AMIODARONE 900 MG in DEXTROSE 5% IN WATER 482 ML IV SCH (14:36)
--- NOTE | 2020-09-14 15:23 | Progress Note ---
Assessment and Plan Acute hypoxemic respiratory failure, on mechanical ventilatory support. COVID-19 infection. Bilateral pneumonia versus pulmonary edema. Severe sepsis with shock. Peripheral vascular disease. Anemia that is microcytic. History of alcohol abuse. Acute encephalopathy. History of obesity. History of coronary artery disease. History of gout. Hyperlipidemia. Hypertension, now hypotensive. Left lower extremity / left foot ulcer. - IVNS 500 ml's bolus then 100/hr X 5 hours - begin vasopressin - begin Amiodarone drip - get 12 lead EKG and address - optimize K+ & Mg levels - cardiology consultation - complete D5W @ 100/hr X 4 liters - increased Lantus to 40 units SQ BID - keep peep at 10 (O2 sat's 92%) - continue care as below otherwise; - continue Free water flushes increased at 300 mls q4h - continue daily SAT and SBT assessment as tolerated - continue to wean supplemental oxygen for target O2 sat's > 92% acutely - VAP bundle addressed - continue lung protective strategies - continue bronchodilators with pulmonary hygiene per RT - wean per pulmonary driven protocols otherwise - continue accuchecks with glycemic control per SSI (While critically ill target blood glucose of 140-180 mg/dL; avoid hypoglycemia) - sedation prn for target RASS 0 to -1 - avoid nephrotoxins, renally dose all medications - accuchecks with glycemic control per SSI (While critically ill target blood glucose of 140-180 mg/dL; avoid hypoglycemia) - avoid benzodiazepine's, reduce the possibility of delirium - complete AB's per ID rec's - prn analgesia per CPOT score - Maintenance of sleep-wake cycle, avoid delirium - enteral nutritional support at goal rate as tolerated - G.I. & VTE prophylaxis - PT/OT/ROM exercises - continue mobility protocols for pressure ulcer prophylaxis - Monitor hemodynamics closely - continue other care per attending / other consultants - discharge planning ongoing concurrently COVID SPECIFIC INTERVENTIONS - completed Remdesivir as per ID/Pulmonary developed protocols - continue systemic steroids for severe COVID-19 infection empirically - follow repeat COVID tests results - zinc and vitamin C supplementation - Monitor inflammatory markers per facility protocol - ferritin, Ddimer, CRP - therapeutic anticoagulation per system Protocol based on d-dimer and clinical considerations - Continue contact and airborne isolation .... Re-evaluate in am & prn CONDITION: CRITICAL PROGNOSIS: GUARDED CODE STATUS: FULL CODE The high probability of a clinically significant, sudden or life-threatening deterioration of the [respiratory, cardiovascular, renal & neurologic] system(s) required my full and direct attention, intervention and personal management. The aggregate critical care time was [37] minutes without overlap. Time includes spent on; [x] Data Review and interpretation [x] Patient assessment and monitoring of vital signs [x] Documentation [x] Medication orders and management Subjective Date of service: 09/14/20 Principal diagnosis: Ac hypoxemic resp failure; COVID-19; Pneumonia; Sepsis; PVD; L. foot ulcer Interval history: Patient is seen today for: Acute hypoxemic respiratory failure; COVID-19 infect ion; Bilateral pneumonia versus pulmonary edema; Severe sepsis with shock; Peripheral vascular disease; Acute encephalopathy; Left lower extremity / left foot ulcer. Seen and examined at bedside; 24hour events reviewed; nursing and respiratory care staff consulted; no adverse overnight events reported to me; resting peacefully in bed; hypoptensive and with SVT's all morning; FiO2 remains at 40% and tolerating ok with peep still at 10; tachyarrythmia did not improve with analgesia Objective Vital Signs - 12hr 09/14/20 09/14/20 09/14/20 03:26 03:30 03:46 Temperature 99.8 F H Pulse Rate 104 H 107 H Pulse Rate [ From Monitor] Respiratory 16 19 Rate Blood Pressure 100/47 104/47 O2 Sat by Pulse 92 94 Oximetry 09/14/20 09/14/20 09/14/20 04:00 04:01 04:16 Temperature Pulse Rate 117 H 117 H 112 H Pulse Rate [ 117 H From Monitor] Respiratory 19 19 20 Rate Blood Pressure 98/50 101/53 O2 Sat by Pulse 92 92 94 Oximetry 09/14/20 09/14/20 09/14/20 04:30 04:45 05:00 Temperature Pulse Rate 115 H 123 H 123 H Pulse Rate [ From Monitor] Respiratory 20 21 21 Rate Blood Pressure 101/53 115/50 115/50 O2 Sat by Pulse 95 93 93 Oximetry 09/14/20 09/14/20 09/14/20 05:16 05:19 05:30 Temperature Pulse Rate 111 H 108 H 112 H Pulse Rate [ From Monitor] Respiratory 23 22 Rate Blood Pressure 120/57 100/46 125/55 O2 Sat by Pulse 86 93 94 Oximetry 09/14/20 09/14/2009/14/21 05:46 06:00 06:16 Temperature Pulse Rate 119 H 118 H 134 H Pulse Rate [ From Monitor] Respiratory 23 21 Rate Blood Pressure 115/55 115/52 111/49 O2 Sat by Pulse 93 93 93 Oximetry 09/14/20 09/14/20 09/14/20 06:30 06:46 07:00 Temperature Pulse Rate 121 H 127 H 110 H Pulse Rate [ From Monitor] Respiratory 20 19 22 Rate Blood Pressure 111/49 97/50 103/49 O2 Sat by Pulse 92 94 93 Oximetry 09/14/20 09/14/20 09/14/20 07:15 07:30 07:43 Temperature Pulse Rate 110 H 116 H 118 H Pulse Rate [ From Monitor] Respiratory 21 20 Rate Blood Pressure 100/52 103/52 115/52 O2 Sat by Pulse 92 92 93 Oximetry 09/14/20 09/14/20 09/14/20 07:45 08:00 08:16 Temperature 101.5 F H Pulse Rate 121 H 130 H 129 H Pulse Rate [ From Monitor] Respiratory 20 Rate Blood Pressure 97/49 80/50 112/46 O2 Sat by Pulse 93 91 94 Oximetry 09/14/20 09/14/20 09/14/20 08:30 08:46 09:00 Temperature Pulse Rate 119 H 119 H 123 H Pulse Rate [ From Monitor] Respiratory 23 24 26 H Rate Blood Pressure 125/51 107/47 99/44 O2 Sat by Pulse 89 91 89 Oximetry 09/14/20 09/14/20 09/14/20 09:16 09:30 09:46 Temperature Pulse Rate 119 H 116 H 123 H Pulse Rate [ From Monitor] Respiratory 24 25 H 24 Rate Blood Pressure 98/46 114/51 117/53 O2 Sat by Pulse 92 91 Oximetry 09/14/20 09/14/20 09/14/20 10:00 10:13 10:14 Temperature Pulse Rate 160 H 119 H 126 H Pulse Rate [ From Monitor] Respiratory 22 Rate Blood Pressure 117/53 85/49 85/49 O2 Sat by Pulse 91 Oximetry 09/14/20 09/14/20 09/14/20 10:16 10:30 10:46 Temperature Pulse Rate 116 H 136 H 133 H Pulse Rate [ From Monitor] Respiratory 24 22 25 H Rate Blood Pressure 103/50 101/47 106/45 O2 Sat by Pulse 94 92 91 Oximetry 09/14/20 09/14/20 09/14/20 11:00 11:16 11:30 Temperature Pulse Rate 156 H 133 H 147 H Pulse Rate [ From Monitor] Respiratory 26 H 24 24 Rate Blood Pressure 86/53 93/49 87/46 O2 Sat by Pulse 93 93 92 Oximetry 09/14/20 09/14/20 09/14/20 11:46 12:00 12:16 Temperature Pulse Rate 125 H 139 H 144 H Pulse Rate [ From Monitor] Respiratory 24 28 H 21 Rate Blood Pressure 96/47 104/47 110/45 O2 Sat by Pulse 92 83 L 91 Oximetry 09/14/20 09/14/20 09/14/20 12:30 12:46 13:00 Temperature Pulse Rate 146 H 149 H 133 H Pulse Rate [ From Monitor] Respiratory 19 21 20 Rate Blood Pressure 85/49 93/46 96/47 O2 Sat by Pulse 91 93 91 Oximetry 09/14/20 09/14/20 09/14/20 13:16 13:30 13:46 Temperature Pulse Rate 131 H 118 H 113 H Pulse Rate [ From Monitor] Respiratory 22 19 21 Rate Blood Pressure 99/49 101/50 100/53 O2 Sat by Pulse 92 91 93 Oximetry 09/14/20 09/14/20 09/14/20 14:00 14:16 14:30 Temperature Pulse Rate 123 H 128 H 113 H Pulse Rate [ From Monitor] Respiratory 19 17 22 Rate Blood Pressure 87/52 127/49 130/50 O2 Sat by Pulse 91 93 91 Oximetry 09/14/20 09/14/20 14:46 15:10 Temperature Pulse Rate 109 H 109 H Pulse Rate [ From Monitor] Respiratory 20 Rate Blood Pressure 132/64 132/64 O2 Sat by Pulse 93 93 Oximetry Constitutional: no acute distress, other (elderly obese male without increased respiratory effort at rest on MVS) Eyes: non-icteric ENT: oropharynx moist, other (ETT 24 cm MONICA) Neck: supple, no lymphadenopathy, no JVD Effort: normal Ascultation: Bilateral: diminished breath sounds, rhonchi Percussion: Bilateral: not dull Cardiovascular: regular rate and rhythm Gastrointestinal: normoactive bowel sounds, soft, non-tender, non-distended (protuberant) Integumentary: normal (in areas i examined; please see [facility] notes for full description) Extremities: no cyanosis, pink and warm, pulses normal, no ischemia or petechiae Neurologic: non-focal exam (grossly), pupils equal and round, other (lethargic) Psychiatric: other (unable to assess) CBC and BMP: 09/14/20 06:25 09/14/20 06:25 ABG, PT/INR, D-dimer: ABG ABG pH 7.427 (7.320-7.450) 09/14/20 04:58 POC ABG pCO2 44.4 mmHg (32.0-48.0) 09/14/20 04:58 ABG pCO2 48.6 mm Hg 09/12/20 03:40 POC ABG pO2 63.7 mmHg (83-108) L 09/14/20 04:58 ABG pO2 77.1 mm Hg (80.0-90.0) L 09/12/20 03:40 POC ABG HCO3 28.6 09/14/20 04:58 ABG O2 Saturation 97.2 % (95.0-99.0) 09/12/20 03:40 PT/INR, D-dimer PT 15.5 Sec. (12.2-14.9) H 09/02/20 15:55 INR 1.23 (0.87-1.13) H 09/02/20 15:55 D-Dimer 1449.12 ng/mlDDU (0-234) H 09/08/20 19:15 Abnormal lab findings: Abnormal Labs 08/15/20 08/15/20 08/15/20 08:49 10:40 10:40 WBC RBC 2.96 L Hgb 9.0 L Hct 25.8 L MCV MCH MCHC 35 H RDW 16.2 H Lymph % (Auto) [place] % (Auto) Eos % (Auto) Lymph # (Auto) Seg Neutrophils % Seg Neutrophils # PT INR APTT D-Dimer Heparin Anti-Xa Level ABG pH POC ABG pCO2 POC ABG pO2 ABG pO2 ABG HCO3 ABG O2 Saturation ABG Base Excess ABG Hemoglobin ABG Oxyhemoglobin ABG Sodium ABG Potassium ABG Chloride ABG Glucose Carboxyhemoglobin Sodium Potassium Chloride Carbon Dioxide BUN Creatinine 0.7 L Glucose 188 H POC Glucose 212 H Calcium 8.3 L Magnesium Ferritin AST Alkaline Phosphatase Lactate Dehydrogenase C-Reactive Protein Total Protein Albumin Arterial Blood Glucose Arterial Blood Ionized Calcium Urine WBC (Auto) Coronavirus (PCR) Crossmatch 08/15/20 08/15/20 08/16/20 14:00 Unknown 04:43 WBC RBC 3.28 L Hgb 9.6 L Hct 29.3 L MCV MCH MCHC RDW 16.6 H Lymph % (Auto) [place] % (Auto) Eos % (Auto) 4.9 H Lymph # (Auto) Seg Neutrophils % Seg Neutrophils # PT INR APTT D-Dimer Heparin Anti-Xa Level ABG pH POC ABG pCO2 POC ABG pO2 ABG pO2 ABG HCO3 ABG O2 Saturation ABG Base Excess ABG Hemoglobin ABG Oxyhemoglobin ABG Sodium ABG Potassium ABG Chloride ABG Glucose Carboxyhemoglobin Sodium Potassium Chloride Carbon Dioxide BUN 8 L Creatinine 0.6 L Glucose 115 H POC Glucose Calcium Magnesium Ferritin AST Alkaline Phosphatase Lactate Dehydrogenase C-Reactive Protein Total Protein Albumin Arterial Blood Glucose Arterial Blood Ionized Calcium Urine WBC (Auto) 31.0 H Coronavirus (PCR) Crossmatch 08/16/20 08/18/20 08/20/20 04:43 15:17 07:12 WBC RBC Hgb 9.1 L Hct 27.2 L MCV MCH MCHC RDW Lymph % (Auto) [place] % (Auto) Eos % (Auto) Lymph # (Auto) Seg Neutrophils % Seg Neutrophils # PT INR APTT D-Dimer Heparin Anti-Xa Level ABG pH POC ABG pCO2 POC ABG pO2 ABG pO2 ABG HCO3 ABG O2 Saturation ABG Base Excess ABG Hemoglobin ABG Oxyhemoglobin ABG Sodium ABG Potassium ABG Chloride ABG Glucose Carboxyhemoglobin Sodium 135 L Potassium Chloride 97.5 L Carbon Dioxide BUN Creatinine 0.5 L Glucose 153 H 135 H POC Glucose Calcium Magnesium Ferritin AST Alkaline Phosphatase Lactate Dehydrogenase C-Reactive Protein Total Protein Albumin Arterial Blood Glucose Arterial Blood Ionized Calcium Urine WBC (Auto) Coronavirus (PCR) Crossmatch 08/20/20 08/20/20 08/20/20 07:12 07:12 08:07 WBC RBC Hgb Hct MCV MCH MCHC RDW Lymph % (Auto) [place] % (Auto) Eos % (Auto) Lymph # (Auto) Seg Neutrophils % Seg Neutrophils # PT INR 1.15 H APTT D-Dimer Heparin Anti-Xa Level ABG pH POC ABG pCO2 POC ABG pO2 ABG pO2 ABG HCO3 ABG O2 Saturation ABG Base Excess ABG Hemoglobin ABG Oxyhemoglobin ABG Sodium ABG Potassium ABG Chloride ABG Glucose Carboxyhemoglobin Sodium Potassium Chloride Carbon Dioxide BUN Creatinine Glucose 113 H POC Glucose 108 H Calcium Magnesium Ferritin AST Alkaline Phosphatase Lactate Dehydrogenase C-Reactive Protein Total Protein Albumin Arterial Blood Glucose Arterial Blood Ionized Calcium Urine WBC (Auto) Coronavirus (PCR) Crossmatch 08/20/20 08/20/20 08/21/20 16:32 22:34 07:42 WBC RBC Hgb Hct MCV MCH MCHC RDW Lymph % (Auto) [place] % (Auto) Eos % (Auto) Lymph # (Auto) Seg Neutrophils % Seg Neutrophils # PT INR APTT D-Dimer Heparin Anti-Xa Level ABG pH POC ABG pCO2 POC ABG pO2 ABG pO2 ABG HCO3 ABG O2 Saturation ABG Base Excess ABG Hemoglobin ABG Oxyhemoglobin ABG Sodium ABG Potassium ABG Chloride ABG Glucose Carboxyhemoglobin Sodium Potassium Chloride Carbon Dioxide BUN Creatinine Glucose POC Glucose 107 H 139 H 115 H Calcium Magnesium Ferritin AST Alkaline Phosphatase Lactate Dehydrogenase C-Reactive Protein Total Protein Albumin Arterial Blood Glucose Arterial Blood Ionized Calcium Urine WBC (Auto) Coronavirus (PCR) Crossmatch 08/21/20 08/21/20 08/21/20 08:14 08:14 11:31 WBC RBC 3.08 L Hgb 8.9 L Hct 27.0 L MCV MCH MCHC RDW 16.7 H Lymph % (Auto) [place] % (Auto) Eos % (Auto) Lymph # (Auto) Seg Neutrophils % Seg Neutrophils # PT INR APTT D-Dimer Heparin Anti-Xa Level ABG pH POC ABG pCO2 POC ABG pO2 ABG pO2 ABG HCO3 ABG O2 Saturation ABG Base Excess ABG Hemoglobin ABG Oxyhemoglobin ABG Sodium ABG Potassium ABG Chloride ABG Glucose Carboxyhemoglobin Sodium 136 L Potassium Chloride Carbon Dioxide BUN Creatinine Glucose 129 H POC Glucose 132 H Calcium Magnesium Ferritin AST Alkaline Phosphatase Lactate Dehydrogenase C-Reactive Protein Total Protein Albumin Arterial Blood Glucose Arterial Blood Ionized Calcium Urine WBC (Auto) Coronavirus (PCR) Crossmatch 08/24/20 08/25/20 08/26/20 10:57 18:39 11:57 WBC RBC Hgb Hct MCV MCH MCHC RDW Lymph % (Auto) [place] % (Auto) Eos % (Auto) Lymph # (Auto) Seg Neutrophils % Seg Neutrophils # PT INR APTT D-Dimer Heparin Anti-Xa Level ABG pH POC ABG pCO2 POC ABG pO2 ABG pO2 ABG HCO3 ABG O2 Saturation ABG Base Excess ABG Hemoglobin ABG Oxyhemoglobin ABG Sodium ABG Potassium ABG Chloride ABG Glucose Carboxyhemoglobin Sodium Potassium Chloride Carbon Dioxide BUN Creatinine Glucose POC Glucose 126 H 120 H 127 H Calcium Magnesium Ferritin AST Alkaline Phosphatase Lactate Dehydrogenase C-Reactive Protein Total Protein Albumin Arterial Blood Glucose Arterial Blood Ionized Calcium Urine WBC (Auto) Coronavirus (PCR) Crossmatch 08/26/20 08/26/20 08/28/20 18:44 23:31 19:34 WBC RBC 3.09 L Hgb 8.7 L Hct 25.5 L MCV 82 L MCH MCHC RDW 17.1 H Lymph % (Auto) [place] % (Auto) 9.1 H Eos % (Auto) Lymph # (Auto) 0.8 L Seg Neutrophils % 71.7 H Seg Neutrophils # PT INR APTT D-Dimer Heparin Anti-Xa Level ABG pH POC ABG pCO2 POC ABG pO2 ABG pO2 ABG HCO3 ABG O2 Saturation ABG Base Excess ABG Hemoglobin ABG Oxyhemoglobin ABG Sodium ABG Potassium ABG Chloride ABG Glucose Carboxyhemoglobin Sodium Potassium Chloride Carbon Dioxide BUN Creatinine Glucose POC Glucose 125 H 115 H Calcium Magnesium Ferritin AST Alkaline Phosphatase Lactate Dehydrogenase C-Reactive Protein Total Protein Albumin Arterial Blood Glucose Arterial Blood Ionized Calcium Urine WBC (Auto) Coronavirus (PCR) Crossmatch 08/28/20 08/28/20 08/29/20 19:34 22:16 08:06 WBC RBC Hgb Hct MCV MCH MCHC RDW Lymph % (Auto) [place] % (Auto) Eos % (Auto) Lymph # (Auto) Seg Neutrophils % Seg Neutrophils # PT INR APTT D-Dimer Heparin Anti-Xa Level ABG pH POC ABG pCO2 POC ABG pO2 ABG pO2 ABG HCO3 ABG O2 Saturation ABG Base Excess ABG Hemoglobin ABG Oxyhemoglobin ABG Sodium ABG Potassium ABG Chloride ABG Glucose Carboxyhemoglobin Sodium 130 L Potassium 2.6 L* Chloride 96.4 L Carbon Dioxide BUN Creatinine Glucose 119 H POC Glucose 110 H 119 H Calcium 7.8 L Magnesium Ferritin AST Alkaline Phosphatase Lactate Dehydrogenase C-Reactive Protein Total Protein Albumin Arterial Blood Glucose Arterial Blood Ionized Calcium Urine WBC (Auto) Coronavirus (PCR) Crossmatch 0108/29/20 08/29/20 12:13 16:37 17:38 WBC RBC Hgb Hct MCV MCH MCHC RDW Lymph % (Auto) [place] % (Auto) Eos % (Auto) Lymph # (Auto) Seg Neutrophils % Seg Neutrophils # PT INR APTT D-Dimer Heparin Anti-Xa Level ABG pH POC ABG pCO2 POC ABG pO2 ABG pO2 ABG HCO3 ABG O2 Saturation ABG Base Excess ABG Hemoglobin ABG Oxyhemoglobin ABG Sodium ABG Potassium ABG Chloride ABG Glucose Carboxyhemoglobin Sodium 133 L Potassium 3.0 L Chloride 97.9 L Carbon Dioxide 21 L BUN Creatinine Glucose 111 H POC Glucose 109 H 106 H Calcium 8.3 L Magnesium 1.30 L Ferritin AST Alkaline Phosphatase Lactate Dehydrogenase C-Reactive Protein Total Protein Albumin Arterial Blood Glucose Arterial Blood Ionized Calcium Urine WBC (Auto) Coronavirus (PCR) Crossmatch 08/29/20 08/29/20 08/29/20 19:21 19:21 19:21 WBC RBC Hgb Hct MCV MCH MCHC RDW Lymph % (Auto) [place] % (Auto) Eos % (Auto) Lymph # (Auto) Seg Neutrophils % Seg Neutrophils # PT INR APTT D-Dimer 688.12 H Heparin Anti-Xa Level ABG pH POC ABG pCO2 POC ABG pO2 ABG pO2 ABG HCO3 ABG O2 Saturation ABG Base Excess ABG Hemoglobin ABG Oxyhemoglobin ABG Sodium ABG Potassium ABG Chloride ABG Glucose Carboxyhemoglobin Sodium Potassium 3.1 L Chloride Carbon Dioxide BUN Creatinine Glucose POC Glucose Calcium Magnesium 1.50 L Ferritin 1476.0 H AST Alkaline Phosphatase Lactate Dehydrogenase C-Reactive Protein Total Protein Albumin Arterial Blood Glucose Arterial Blood Ionized Calcium Urine WBC (Auto) Coronavirus (PCR) Crossmatch 08/29/20 08/29/20 08/31/20 19:21 Unknown 04:30 WBC RBC 3.12 L Hgb 9.1 L Hct 25.7 L MCV 83 L MCH MCHC 35 H RDW 17.4 H Lymph % (Auto) [place] % (Auto) 9.4 H Eos % (Auto) Lymph # (Auto) Seg Neutrophils % Seg Neutrophils # PT INR APTT D-Dimer Heparin Anti-Xa Level ABG pH POC ABG pCO2 POC ABG pO2 ABG pO2 ABG HCO3 ABG O2 Saturation ABG Base Excess ABG Hemoglobin ABG Oxyhemoglobin ABG Sodium ABG Potassium ABG Chloride ABG Glucose Carboxyhemoglobin Sodium Potassium Chloride Carbon Dioxide BUN Creatinine Glucose POC Glucose Calcium Magnesium Ferritin AST Alkaline Phosphatase Lactate Dehydrogenase 373 H C-Reactive Protein 18.30 H Total Protein Albumin Arterial Blood Glucose Arterial Blood Ionized Calcium Urine WBC (Auto) Coronavirus (PCR) Positive A Crossmatch 08/31/20 09/02/20 09/02/20 04:30 06:28 06:49 WBC RBC Hgb Hct MCV MCH MCHC RDW Lymph % (Auto) [place] % (Auto) Eos % (Auto) Lymph # (Auto) Seg Neutrophils % Seg Neutrophils # PT INR APTT D-Dimer Heparin Anti-Xa Level ABG pH POC ABG pCO2 26.2 L POC ABG pO2 82.2 L ABG pO2 ABG HCO3 ABG O2 Saturation ABG Base Excess ABG Hemoglobin 10.1 L ABG Oxyhemoglobin ABG Sodium 134.5 L ABG Potassium 3.2 L ABG Chloride ABG Glucose 127 H Carboxyhemoglobin 0.3 L Sodium 134 L Potassium 3.4 L Chloride Carbon Dioxide BUN Creatinine Glucose 129 H POC Glucose 109 H Calcium 8.0 L Magnesium Ferritin AST Alkaline Phosphatase Lactate Dehydrogenase C-Reactive Protein Total Protein Albumin Arterial Blood Glucose 127 H Arterial Blood Ionized Calcium 4.5 L Urine WBC (Auto) Coronavirus (PCR) Crossmatch 09/02/20 09/02/20 09/02/20 11:32 15:55 15:55 WBC RBC Hgb Hct MCV MCH MCHC RDW Lymph % (Auto) [place] % (Auto) Eos % (Auto) Lymph # (Auto) Seg Neutrophils % Seg Neutrophils # PT 15.5 H INR 1.23 H APTT 50.2 H D-Dimer 2186.40 H Heparin Anti-Xa Level ABG pH POC ABG pCO2 POC ABG pO2 ABG pO2 ABG HCO3 ABG O2 Saturation ABG Base Excess ABG Hemoglobin ABG Oxyhemoglobin ABG Sodium ABG Potassium ABG Chloride ABG Glucose Carboxyhemoglobin Sodium Potassium Chloride Carbon Dioxide 21 L BUN 30 H Creatinine 1.6 H Glucose 125 H POC Glucose 112 H Calcium 7.8 L Magnesium Ferritin AST Alkaline Phosphatase Lactate Dehydrogenase C-Reactive Protein Total Protein Albumin Arterial Blood Glucose Arterial Blood Ionized Calcium Urine WBC (Auto) Coronavirus (PCR) Crossmatch 09/02/20 09/02/20 09/02/20 15:55 15:55 17:34 WBC 11.2 H RBC 2.94 L Hgb 8.1 L Hct 24.3 L MCV 83 L MCH 27 L MCHC RDW 17.7 H Lymph % (Auto) 12.7 L [place] % (Auto) Eos % (Auto) Lymph # (Auto) Seg Neutrophils % 82.5 H Seg Neutrophils # 9.3 H PT INR APTT D-Dimer Heparin Anti-Xa Level ABG pH POC ABG pCO2 POC ABG pO2 ABG pO2 ABG HCO3 ABG O2 Saturation ABG Base Excess ABG Hemoglobin ABG Oxyhemoglobin ABG Sodium ABG Potassium ABG Chloride ABG Glucose Carboxyhemoglobin Sodium Potassium Chloride Carbon Dioxide BUN Creatinine Glucose POC Glucose 127 H Calcium Magnesium Ferritin 1892.0 H AST Alkaline Phosphatase Lactate Dehydrogenase C-Reactive Protein Total Protein Albumin Arterial Blood Glucose Arterial Blood Ionized Calcium Urine WBC (Auto) Coronavirus (PCR) Crossmatch 09/03/20 09/03/20 09/03/20 07:13 16:40 23:40 WBC RBC Hgb Hct MCV MCH MCHC RDW Lymph % (Auto) [place] % (Auto) Eos % (Auto) Lymph # (Auto) Seg Neutrophils % Seg Neutrophils # PT INR APTT D-Dimer Heparin Anti-Xa Level 0.88 H ABG pH POC ABG pCO2 POC ABG pO2 ABG pO2 ABG HCO3 ABG O2 Saturation ABG Base Excess ABG Hemoglobin ABG Oxyhemoglobin ABG Sodium ABG Potassium ABG Chloride ABG Glucose Carboxyhemoglobin Sodium Potassium 3.2 L Chloride 109.7 H Carbon Dioxide BUN 24 H Creatinine Glucose 142 H POC Glucose 220 H Calcium 8.2 L Magnesium Ferritin AST 75 H Alkaline Phosphatase Lactate Dehydrogenase C-Reactive Protein Total Protein 5.8 L Albumin 2.7 L Arterial Blood Glucose Arterial Blood Ionized Calcium Urine WBC (Auto) Coronavirus (PCR) Crossmatch 09/04/20 09/04/20 09/04/20 07:25 07:25 11:57 WBC RBC Hgb 9.0 L Hct 27.9 L MCV MCH MCHC RDW Lymph % (Auto) [place] % (Auto) Eos % (Auto) Lymph # (Auto) Seg Neutrophils % Seg Neutrophils # PT INR APTT D-Dimer Heparin Anti-Xa Level ABG pH POC ABG pCO2 POC ABG pO2 ABG pO2 ABG HCO3 ABG O2 Saturation ABG Base Excess ABG Hemoglobin ABG Oxyhemoglobin ABG Sodium ABG Potassium ABG Chloride ABG Glucose Carboxyhemoglobin Sodium 148 H Potassium Chloride 116.9 H Carbon Dioxide BUN Creatinine Glucose 129 H POC Glucose 113 H Calcium Magnesium Ferritin AST 93 H Alkaline Phosphatase 134 H Lactate Dehydrogenase C-Reactive Protein Total Protein 6.0 L Albumin 2.6 L Arterial Blood Glucose Arterial Blood Ionized Calcium Urine WBC (Auto) Coronavirus (PCR) Crossmatch 09/05/20 09/05/20 09/05/20 06:24 07:17 13:38 WBC RBC Hgb Hct MCV MCH MCHC RDW Lymph % (Auto) [place] % (Auto) Eos % (Auto) Lymph # (Auto) Seg Neutrophils % Seg Neutrophils # PT INR APTT D-Dimer Heparin Anti-Xa Level ABG pH 7.218 L POC ABG pCO2 66.0 H POC ABG pO2 45.8 L 79.1 L ABG pO2 ABG HCO3 ABG O2 Saturation ABG Base Excess ABG Hemoglobin 10.7 L 9.6 L ABG Oxyhemoglobin 74.5 L ABG Sodium 146.5 H 145.4 H ABG Potassium ABG Chloride 115.0 H 117.0 H ABG Glucose 146 H 106 H Carboxyhemoglobin 0.1 L 0 L Sodium 152 H Potassium Chloride 115.9 H Carbon Dioxide BUN Creatinine Glucose 134 H POC Glucose Calcium Magnesium Ferritin AST 69 H Alkaline Phosphatase 168 H Lactate Dehydrogenase C-Reactive Protein Total Protein 5.4 L Albumin 2.7 L Arterial Blood Glucose 146 H 106 H Arterial Blood Ionized Calcium Urine WBC (Auto) Coronavirus (PCR) Crossmatch 09/05/20 09/06/20 09/06/20 17:27 04:15 07:29 WBC RBC Hgb 7.8 L Hct 24.0 L MCV MCH MCHC RDW Lymph % (Auto) [place] % (Auto) Eos % (Auto) Lymph # (Auto) Seg Neutrophils % Seg Neutrophils # PT INR APTT D-Dimer Heparin Anti-Xa Level ABG pH POC ABG pCO2 POC ABG pO2 ABG pO2 184.9 H ABG HCO3 19.9 L ABG O2 Saturation 99.2 H ABG Base Excess -3.5 L ABG Hemoglobin 8.9 L ABG Oxyhemoglobin ABG Sodium ABG Potassium ABG Chloride ABG Glucose Carboxyhemoglobin Sodium Potassium Chloride Carbon Dioxide BUN Creatinine Glucose POC Glucose 124 H Calcium Magnesium Ferritin AST Alkaline Phosphatase Lactate Dehydrogenase C-Reactive Protein Total Protein Albumin Arterial Blood Glucose Arterial Blood Ionized Calcium Urine WBC (Auto) Coronavirus (PCR) Crossmatch 09/06/20 09/06/20 09/06/20 07:29 07:29 12:02 WBC 11.3 H RBC 2.83 L Hgb 7.8 L Hct 24.3 L MCV MCH MCHC RDW 17.7 H Lymph % (Auto) [place] % (Auto) Eos % (Auto) Lymph # (Auto) Seg Neutrophils % Seg Neutrophils # PT INR APTT D-Dimer Heparin Anti-Xa Level ABG pH POC ABG pCO2 POC ABG pO2 ABG pO2 ABG HCO3 ABG O2 Saturation ABG Base Excess ABG Hemoglobin ABG Oxyhemoglobin ABG Sodium ABG Potassium ABG Chloride ABG Glucose Carboxyhemoglobin Sodium 151 H Potassium Chloride 117.6 H Carbon Dioxide BUN 24 H Creatinine Glucose 159 H POC Glucose 158 H Calcium 7.7 L Magnesium Ferritin AST Alkaline Phosphatase Lactate Dehydrogenase C-Reactive Protein Total Protein Albumin Arterial Blood Glucose Arterial Blood Ionized Calcium Urine WBC (Auto) Coronavirus (PCR) Crossmatch 09/07/20 09/08/20 09/08/20 05:21 04:31 04:35 WBC RBC Hgb 7.4 L Hct 22.7 L MCV MCH MCHC RDW Lymph % (Auto) [place] % (Auto) Eos % (Auto) Lymph # (Auto) Seg Neutrophils % Seg Neutrophils # PT INR APTT D-Dimer Heparin Anti-Xa Level ABG pH POC ABG pCO2 49.1 H POC ABG pO2 46.0 L 58.6 L ABG pO2 ABG HCO3 ABG O2 Saturation ABG Base Excess ABG Hemoglobin 8.6 L 7.8 L ABG Oxyhemoglobin 87.7 L ABG Sodium 145.1 H ABG Potassium ABG Chloride 116.0 H 116.0 H ABG Glucose 238 H 255 H Carboxyhemoglobin Sodium Potassium Chloride Carbon Dioxide BUN Creatinine Glucose POC Glucose Calcium Magnesium Ferritin AST Alkaline Phosphatase Lactate Dehydrogenase C-Reactive Protein Total Protein Albumin Arterial Blood Glucose 238 H 255 H Arterial Blood Ionized Calcium Urine WBC (Auto) Coronavirus (PCR) Crossmatch 09/08/20 09/08/20 09/08/20 12:45 17:26 19:15 WBC RBC Hgb Hct MCV MCH MCHC RDW Lymph % (Auto) [place] % (Auto) Eos % (Auto) Lymph # (Auto) Seg Neutrophils % Seg Neutrophils # PT INR APTT D-Dimer Heparin Anti-Xa Level ABG pH POC ABG pCO2 POC ABG pO2 ABG pO2 ABG HCO3 ABG O2 Saturation ABG Base Excess ABG Hemoglobin ABG Oxyhemoglobin ABG Sodium ABG Potassium ABG Chloride ABG Glucose Carboxyhemoglobin Sodium Potassium Chloride Carbon Dioxide BUN Creatinine Glucose POC Glucose 270 H 294 H Calcium Magnesium Ferritin AST Alkaline Phosphatase Lactate Dehydrogenase C-Reactive Protein 4.90 H Total Protein Albumin Arterial Blood Glucose Arterial Blood Ionized Calcium Urine WBC (Auto) Coronavirus (PCR) Crossmatch 09/08/20 09/08/20 09/08/20 19:15 19:15 19:15 WBC RBC Hgb Hct MCV MCH MCHC RDW Lymph % (Auto) [place] % (Auto) Eos % (Auto) Lymph # (Auto) Seg Neutrophils % Seg Neutrophils # PT INR APTT D-Dimer 1449.12 H Heparin Anti-Xa Level ABG pH POC ABG pCO2 POC ABG pO2 ABG pO2 ABG HCO3 ABG O2 Saturation ABG Base Excess ABG Hemoglobin ABG Oxyhemoglobin ABG Sodium ABG Potassium ABG Chloride ABG Glucose Carboxyhemoglobin Sodium Potassium Chloride Carbon Dioxide BUN Creatinine Glucose POC Glucose Calcium Magnesium Ferritin 1485.0 H AST Alkaline Phosphatase Lactate Dehydrogenase 541 H C-Reactive Protein Total Protein Albumin Arterial Blood Glucose Arterial Blood Ionized Calcium Urine WBC (Auto) Coronavirus (PCR) Crossmatch 09/09/20 09/09/20 09/09/20 04:40 12:15 17:36 WBC RBC Hgb Hct MCV MCH MCHC RDW Lymph % (Auto) [place] % (Auto) Eos % (Auto) Lymph # (Auto) Seg Neutrophils % Seg Neutrophils # PT INR APTT D-Dimer Heparin Anti-Xa Level ABG pH POC ABG pCO2 POC ABG pO2 75.1 L ABG pO2 ABG HCO3 ABG O2 Saturation ABG Base Excess ABG Hemoglobin 10.7 L ABG Oxyhemoglobin 93.9 L ABG Sodium 146.7 H ABG Potassium ABG Chloride 113.0 H ABG Glucose 420 H Carboxyhemoglobin 0.2 L Sodium Potassium Chloride Carbon Dioxide BUN Creatinine Glucose POC Glucose 281 H 368 H Calcium Magnesium Ferritin AST Alkaline Phosphatase Lactate Dehydrogenase C-Reactive Protein Total Protein Albumin Arterial Blood Glucose 420 H Arterial Blood Ionized Calcium Urine WBC (Auto) Coronavirus (PCR) Crossmatch 09/10/20 09/10/2009/10/21 04:45 07:15 11:51 WBC RBC Hgb 7.7 L Hct 24.8 L MCV MCH MCHC RDW Lymph % (Auto) [place] % (Auto) Eos % (Auto) Lymph # (Auto) Seg Neutrophils % Seg Neutrophils # PT INR APTT D-Dimer Heparin Anti-Xa Level ABG pH POC ABG pCO2 POC ABG pO2 ABG pO2 ABG HCO3 ABG O2 Saturation ABG Base Excess ABG Hemoglobin 8.0 L ABG Oxyhemoglobin ABG Sodium 150.8 H ABG Potassium ABG Chloride 117.0 H ABG Glucose 461 H Carboxyhemoglobin Sodium Potassium Chloride Carbon Dioxide BUN Creatinine Glucose POC Glucose 358 H Calcium Magnesium Ferritin AST Alkaline Phosphatase Lactate Dehydrogenase C-Reactive Protein Total Protein Albumin Arterial Blood Glucose 461 H Arterial Blood Ionized Calcium Urine WBC (Auto) Coronavirus (PCR) Crossmatch 09/10/20 09/10/20 09/11/20 17:28 23:29 04:55 WBC RBC Hgb Hct MCV MCH MCHC RDW Lymph % (Auto) [place] % (Auto) Eos % (Auto) Lymph # (Auto) Seg Neutrophils % Seg Neutrophils # PT INR APTT D-Dimer Heparin Anti-Xa Level ABG pH POC ABG pCO2 49.3 H POC ABG pO2 78.2 L ABG pO2 ABG HCO3 ABG O2 Saturation ABG Base Excess ABG Hemoglobin 8.2 L ABG Oxyhemoglobin ABG Sodium 155.0 H ABG Potassium ABG Chloride 120.0 H ABG Glucose 515 H Carboxyhemoglobin Sodium Potassium Chloride Carbon Dioxide BUN Creatinine Glucose POC Glucose 434 H 384 H Calcium Magnesium Ferritin AST Alkaline Phosphatase Lactate Dehydrogenase C-Reactive Protein Total Protein Albumin Arterial Blood Glucose 515 H Arterial Blood Ionized Calcium Urine WBC (Auto) Coronavirus (PCR) Crossmatch 09/11/20 09/11/20 09/11/20 05:03 06:10 06:10 WBC 11.1 H RBC 2.55 L Hgb 7.1 L Hct 23.4 L MCV MCH MCHC 30 L RDW 19.6 H Lymph % (Auto) [place] % (Auto) Eos % (Auto) Lymph # (Auto) Seg Neutrophils % Seg Neutrophils # PT INR APTT D-Dimer Heparin Anti-Xa Level ABG pH POC ABG pCO2 POC ABG pO2 ABG pO2 ABG HCO3 ABG O2 Saturation ABG Base Excess ABG Hemoglobin ABG Oxyhemoglobin ABG Sodium ABG Potassium ABG Chloride ABG Glucose Carboxyhemoglobin Sodium 159 H D Potassium Chloride 121.9 H Carbon Dioxide BUN 59 H Creatinine Glucose 530 H* POC Glucose 306 H Calcium 8.2 L Magnesium Ferritin AST Alkaline Phosphatase Lactate Dehydrogenase C-Reactive Protein Total Protein Albumin Arterial Blood Glucose Arterial Blood Ionized Calcium Urine WBC (Auto) Coronavirus (PCR) Crossmatch 09/11/20 09/11/20 09/11/20 08:12 12:13 17:04 WBC RBC Hgb Hct MCV MCH MCHC RDW Lymph % (Auto) [place] % (Auto) Eos % (Auto) Lymph # (Auto) Seg Neutrophils % Seg Neutrophils # PT INR APTT D-Dimer Heparin Anti-Xa Level ABG pH POC ABG pCO2 POC ABG pO2 ABG pO2 ABG HCO3 ABG O2 Saturation ABG Base Excess ABG Hemoglobin ABG Oxyhemoglobin ABG Sodium ABG Potassium ABG Chloride ABG Glucose Carboxyhemoglobin Sodium Potassium Chloride Carbon Dioxide BUN Creatinine Glucose 526 H* POC Glucose 374 H 398 H Calcium Magnesium Ferritin AST Alkaline Phosphatase Lactate Dehydrogenase C-Reactive Protein Total Protein Albumin Arterial Blood Glucose Arterial Blood Ionized Calcium Urine WBC (Auto) Coronavirus (PCR) Crossmatch 09/11/20 09/12/20 09/12/20 23:39 03:40 05:42 WBC RBC Hgb Hct MCV MCH MCHC RDW Lymph % (Auto) [place] % (Auto) Eos % (Auto) Lymph # (Auto) Seg Neutrophils % Seg Neutrophils # PT INR APTT D-Dimer Heparin Anti-Xa Level ABG pH POC ABG pCO2 POC ABG pO2 ABG pO2 77.1 L ABG HCO3 31.3 H ABG O2 Saturation ABG Base Excess 6.4 H ABG Hemoglobin 5.4 L ABG Oxyhemoglobin ABG Sodium ABG Potassium ABG Chloride ABG Glucose Carboxyhemoglobin Sodium Potassium Chloride Carbon Dioxide BUN Creatinine Glucose POC Glucose 355 H 286 H Calcium Magnesium Ferritin AST Alkaline Phosphatase Lactate Dehydrogenase C-Reactive Protein Total Protein Albumin Arterial Blood Glucose Arterial Blood Ionized Calcium Urine WBC (Auto) Coronavirus (PCR) Crossmatch 09/12/20 09/12/20 09/12/20 06:01 06:01 11:22 WBC RBC 2.36 L Hgb 6.6 L Hct 21.7 L MCV MCH MCHC 31 L RDW 19.9 H Lymph % (Auto) 8.5 L [place] % (Auto) Eos % (Auto) Lymph # (Auto) 0.8 L Seg Neutrophils % 86.6 H Seg Neutrophils # 8.5 H PT INR APTT D-Dimer Heparin Anti-Xa Level ABG pH POC ABG pCO2 POC ABG pO2 ABG pO2 ABG HCO3 ABG O2 Saturation ABG Base Excess ABG Hemoglobin ABG Oxyhemoglobin ABG Sodium ABG Potassium ABG Chloride ABG Glucose Carboxyhemoglobin Sodium 153 H Potassium Chloride 117.7 H Carbon Dioxide 32 H BUN 46 H Creatinine 0.7 L Glucose 358 H POC Glucose 350 H Calcium 7.3 L Magnesium Ferritin AST Alkaline Phosphatase Lactate Dehydrogenase C-Reactive Protein Total Protein Albumin Arterial Blood Glucose Arterial Blood Ionized Calcium Urine WBC (Auto) Coronavirus (PCR) Crossmatch 09/12/20 09/12/20 09/12/20 13:30 16:47 17:40 WBC RBC Hgb Hct MCV MCH MCHC RDW Lymph % (Auto) [place] % (Auto) Eos % (Auto) Lymph # (Auto) Seg Neutrophils % Seg Neutrophils # PT INR APTT D-Dimer Heparin Anti-Xa Level ABG pH POC ABG pCO2 POC ABG pO2 ABG pO2 ABG HCO3 ABG O2 Saturation ABG Base Excess ABG Hemoglobin ABG Oxyhemoglobin ABG Sodium ABG Potassium ABG Chloride ABG Glucose Carboxyhemoglobin Sodium Potassium Chloride Carbon Dioxide BUN Creatinine Glucose POC Glucose 389 H 402 H Calcium Magnesium Ferritin AST Alkaline Phosphatase Lactate Dehydrogenase C-Reactive Protein Total Protein Albumin Arterial Blood Glucose Arterial Blood Ionized Calcium Urine WBC (Auto) Coronavirus (PCR) Crossmatch See Detail 09/12/20 09/13/20 09/13/20 23:56 02:09 05:08 WBC RBC Hgb Hct MCV MCH MCHC RDW Lymph % (Auto) [place] % (Auto) Eos % (Auto) Lymph # (Auto) Seg Neutrophils % Seg Neutrophils # PT INR APTT D-Dimer Heparin Anti-Xa Level ABG pH 7.471 H POC ABG pCO2 POC ABG pO2 75.2 L ABG pO2 ABG HCO3 ABG O2 Saturation ABG Base Excess ABG Hemoglobin 11.5 L ABG Oxyhemoglobin ABG Sodium 158.8 H ABG Potassium ABG Chloride 122.0 H ABG Glucose 387 H Carboxyhemoglobin Sodium Potassium Chloride Carbon Dioxide BUN Creatinine Glucose POC Glucose 337 H 256 H Calcium Magnesium Ferritin AST Alkaline Phosphatase Lactate Dehydrogenase C-Reactive Protein Total Protein Albumin Arterial Blood Glucose 387 H Arterial Blood Ionized Calcium Urine WBC (Auto) Coronavirus (PCR) Crossmatch 09/13/20 09/13/20 09/13/20 09:07 09:07 11:44 WBC 12.2 H RBC Hgb 10.9 L D Hct 33.7 L D MCV MCH MCHC RDW 18.5 H Lymph % (Auto) 7.1 L [place] % (Auto) Eos % (Auto) Lymph # (Auto) 0.9 L Seg Neutrophils % 89.3 H Seg Neutrophils # 10.8 H PT INR APTT D-Dimer Heparin Anti-Xa Level ABG pH POC ABG pCO2 POC ABG pO2 ABG pO2 ABG HCO3 ABG O2 Saturation ABG Base Excess ABG Hemoglobin ABG Oxyhemoglobin ABG Sodium ABG Potassium ABG Chloride ABG Glucose Carboxyhemoglobin Sodium 160 H Potassium Chloride 121.1 H Carbon Dioxide 34 H BUN 51 H Creatinine Glucose 294 H POC Glucose 283 H Calcium Magnesium Ferritin AST Alkaline Phosphatase Lactate Dehydrogenase C-Reactive Protein Total Protein Albumin Arterial Blood Glucose Arterial Blood Ionized Calcium Urine WBC (Auto) Coronavirus (PCR) Crossmatch 09/13/20 09/13/20 09/14/20 16:45 23:35 04:58 WBC RBC Hgb Hct MCV MCH MCHC RDW Lymph % (Auto) [place] % (Auto) Eos % (Auto) Lymph # (Auto) Seg Neutrophils % Seg Neutrophils # PT INR APTT D-Dimer Heparin Anti-Xa Level ABG pH POC ABG pCO2 POC ABG pO2 63.7 L ABG pO2 ABG HCO3 ABG O2 Saturation ABG Base Excess ABG Hemoglobin 10.2 L ABG Oxyhemoglobin ABG Sodium 149.6 H ABG Potassium ABG Chloride 116.0 H ABG Glucose 341 H Carboxyhemoglobin Sodium Potassium Chloride Carbon Dioxide BUN Creatinine Glucose POC Glucose 265 H 306 H Calcium Magnesium Ferritin AST Alkaline Phosphatase Lactate Dehydrogenase C-Reactive Protein Total Protein Albumin Arterial Blood Glucose 341 H Arterial Blood Ionized Calcium Urine WBC (Auto) Coronavirus (PCR) Crossmatch 09/14/20 09/14/20 09/14/20 05:18 06:25 06:25 WBC 11.2 H RBC 3.20 L Hgb 9.4 L Hct 29.9 L MCV MCH MCHC 31 L RDW 19.6 H Lymph % (Auto) [place] % (Auto) Eos % (Auto) Lymph # (Auto) Seg Neutrophils % Seg Neutrophils # PT INR APTT D-Dimer Heparin Anti-Xa Level ABG pH POC ABG pCO2 POC ABG pO2 ABG pO2 ABG HCO3 ABG O2 Saturation ABG Base Excess ABG Hemoglobin ABG Oxyhemoglobin ABG Sodium ABG Potassium ABG Chloride ABG Glucose Carboxyhemoglobin Sodium 156 H Potassium Chloride 116.4 H Carbon Dioxide BUN 49 H Creatinine Glucose 337 H POC Glucose 272 H Calcium 8.0 L Magnesium Ferritin AST Alkaline Phosphatase Lactate Dehydrogenase C-Reactive Protein Total Protein Albumin Arterial Blood Glucose Arterial Blood Ionized Calcium Urine WBC (Auto) Coronavirus (PCR) Crossmatch 09/14/20 09/14/20 06:25 11:55 WBC RBC Hgb Hct MCV MCH MCHC RDW Lymph % (Auto) [place] % (Auto) Eos % (Auto) Lymph # (Auto) Seg Neutrophils % Seg Neutrophils # PT INR APTT D-Dimer Heparin Anti-Xa Level ABG pH POC ABG pCO2 POC ABG pO2 ABG pO2 ABG HCO3 ABG O2 Saturation ABG Base Excess ABG Hemoglobin ABG Oxyhemoglobin ABG Sodium ABG Potassium ABG Chloride ABG Glucose Carboxyhemoglobin Sodium Potassium Chloride Carbon Dioxide BUN Creatinine Glucose POC Glucose 321 H Calcium Magnesium 2.60 H Ferritin AST Alkaline Phosphatase Lactate Dehydrogenase C-Reactive Protein Total Protein Albumin Arterial Blood Glucose Arterial Blood Ionized Calcium Urine WBC (Auto) Coronavirus (PCR) Crossmatch Chest x-ray: other (none today) Allied health notes reviewed: nursing
[2020-09-14] MEDS ORDERED: HEPARIN 10,000 UNITS/10 ML VIAL IV PRN (15:52)
--- NOTE | 2020-09-14 15:53 | Consultation ---
History of Present Illness Consult date: 09/14/20 Requesting physician: MEE COBURN Consult reason: tachycardia History of present illness: The pt is a 64-year-old male with a past medical history of hypertension, CAD s/p CABG, PVD, gout, ETOH abuse. He is intubated on evaluation and thus HPI is obtained per the chart. He presented on 08/15/2020 for evaluation of bleeding from his left foot which is a site of a previous surgery. Patient was noted to have wound dehiscence complicated by wound necrosis. Was seen by vascular surgery and underwent a TMA. Due to fever, patient was receiving IV levofloxacin for UTI. COVID-19 test done on 08/29/2020 for placement reasons came back positive. Patient has been having intermittent fevers since 08/28/2020. 09/02/2020, a code MET was called due to tachypnea and labored respirations and pt subsequently intubated. He was noted to develop paroxysmal atrial fibrillation with RVR and thus cardiology has been consulted. tte done 07/31/2020 showed EF 60-65%, impaired relaxation, mild to mod LVH. Past History Past Medical History: CAD, hypertension, hyperlipidemia, PVD, other (as per HPI) Past Surgical History: CABG, tonsillectomy, Other (Left transmetatarsal amputation, revascularization of left lower extremity, removal of cyst on right chest) Social history: single Family history: no significant family history Medications and Allergies Allergies Allergy/AdvReac Type Severity Reaction Status Date / Time Penicillins Allergy Hives Verified 07/16/20 22:49 Home Medications Medication Instructions Recorded Confirmed Last Taken Type AtorvaSTATin [Lipitor] 40 mg PO QHS 07/17/20 08/15/20 Unknown History Clopidogrel [Plavix] 75 mg PO QDAY 07/17/20 08/15/20 Unknown History Folic Acid [Folvite] 1 mg PO QDAY 07/17/20 08/15/20 Unknown History Metoprolol [Lopressor TAB] 50 mg PO BID 07/17/20 08/15/20 Unknown History Thiamine [Vitamin B-1] 100 mg PO QDAY 07/17/20 08/15/20 Unknown History Pantoprazole [Protonix TAB] 40 mg PO QDAC #30 tablet 08/06/20 08/15/20 Unknown Rx amLODIPine 10 mg PO QDAY #30 tablet 08/06/20 08/15/20 Unknown Rx cilostazoL [Pletal] 100 mg PO BID #60 tablet 08/06/20 08/15/20 Unknown Rx levoFLOXacin [Levaquin TAB] 750 mg PO DAILY #5 tablet 08/06/20 08/15/20 Unknown Rx oxyCODONE /ACETAMINOPHEN [Percocet 1 tab PO Q4H PRN #14 tablet 08/06/20 08/15/20 Unknown Rx 5/325 mg] Active Meds: Active Medications Acetaminophen (Acetaminophen 325 Mg Tab) 650 mg PO Q4H PRN PRN Reason: Pain MILD(1-3)/Fever >100.5/REYES Last Admin: 09/13/20 19:59 Dose: 650 mg Documented by: Albuterol (Albuterol 2.5 Mg/3 Ml Nebu) 2.5 mg IH Q4HRT PRN PRN Reason: Shortness Of Breath Last Admin: 08/20/20 12:53 Dose: 2.5 mg Documented by: Amlodipine Besylate (Amlodipine 10 Mg Tab) 10 mg PO QDAY [facility] Last Admin: 09/14/20 10:13 Dose: Not Given Documented by: Lipase/Protease/Amylase (Lipase 10,500/Protease 25,000/Amylase 43,750 (Units) Dr Lisa) 1 each FEEDTUBE PRN PRN PRN Reason: For Clogged Feeding Tube Ascorbic Acid (Ascorbic Acid 500 Mg Tab) 500 mg PO BID [facility] Last Admin: 09/14/20 10:00 Dose: 500 mg Documented by: Atorvastatin Calcium (Atorvastatin 40 Mg Tab) 40 mg PO QHS [facility] Last Admin: 09/13/20 22:30 Dose: 40 mg Documented by: Cilostazol (Cilostazol 100 Mg Tab) 100 mg PO BID [facility] Last Admin: 09/14/20 09:59 Dose: 100 mg Documented by: Clopidogrel Bisulfate (Clopidogrel 75 Mg Tab) 75 mg PO QDAY [facility] Last Admin: 09/14/20 10:00 Dose: 75 mg Documented by: Dextrose (Dextrose 50% In Water (25gm) 50 Ml Syringe) 50 ml IV Q30MIN PRN; Protocol PRN Reason: Hypoglycemia Enoxaparin Sodium (Enoxaparin 100 Mg/1 Ml Inj) 90 mg SUB-Q Q12HR [facility] Last Admin: 09/14/20 09:51 Dose: 90 mg Documented by: Fentanyl (Fentanyl 100 Mcg/2 Ml Inj) 50 mcg IV Q10MIN PRN PRN Reason: ANALGESIA Last Admin: 09/13/20 19:58 Dose: 50 mcg Documented by: Folic Acid (Folic Acid 1 Mg Tab) 1 mg PO QDAY [facility] Last Admin: 09/14/20 09:59 Dose: 1 mg Documented by: Hydrophilic Ointment (Lip Therapy Vaseline) 1 applic TP Q2HR PRN PRN Reason: Dry Lips Norepinephrine (Levophed Drip 4 Mg/Ns 250 Ml) 4 mg in 250 mls @ 7.5 mls/hr IV TITR [facility]; Protocol Last Titration: 09/07/20 06:50 Dose: 0 mcg/min, 0 mls/hr Documented by: Vasopressin 20 unit/ Sodium (Chloride) 101 mls @ 9.09 mls/hr IV TITR [facility]; Protocol Last Admin: 09/14/20 14:15 Dose: 0.03 units/min, 9.09 mls/hr Documented by: Fentanyl Citrate (Fentanyl Drip Premix) 2,000 mcg in 100 mls @ 4.465 mls/hr IV TITR [facility]; Protocol Last Titration: 09/11/20 19:07 Dose: 0 mcg/kg/hr, 0 mls/hr Documented by: Midazolam HCl 100 mg/ Sodium (Chloride) 100 mls @ 2 mls/hr IV TITR [facility]; Protocol Last Titration: 09/06/20 08:30 Dose: 0 mg/hr, 0 mls/hr Documented by: Dextrose (D5w) 1,000 mls @ 100 mls/hr IV DIRECT [facility] Stop: 09/17/20 05:59 Last Admin: 09/14/20 05:19 Dose: 100 mls/hr Documented by: Levofloxacin/Dextrose (Levaquin 750mg/150ml) 750 mg in 150 mls @ 100 mls/hr IV Q24H [facility]; Protocol Stop: 09/17/20 09:59 Last Admin: 09/14/20 09:51 Dose: 100 mls/hr Documented by: Amiodarone HCl 900 mg/ (Dextrose) 500 mls @ 33.333 mls/hr IV DIRECT [facility]; Protocol Last Admin: 09/14/20 14:36 Dose: 1 mg/min, 33.333 mls/hr Documented by: Insulin Glargine (Insulin Glargine 100 Units/Ml) 40 units SUB-Q BIDDIAB [facility] Insulin Human Lispro (Insulin Lispro 100 Unit/Ml Vial 3 Ml) 0 unit SUB-Q Q6H [facility]; Protocol Last Admin: 09/14/20 14:18 Dose: 8 unit Documented by: Lansoprazole (Lansoprazole 30 Mg Solutab) 30 mg FEEDTUBE QDAY [facility] Last Admin: 09/14/20 10:00 Dose: 30 mg Documented by: Loperamide HCl (Loperamide 2 Mg Cap) 2 mg PO PRN PRN PRN Reason: Diarrhea Last Admin: 08/28/20 12:51 Dose: 2 mg Documented by: Lorazepam (Lorazepam 2 Mg/Ml Vial) 1 mg IV Q4H PRN PRN Reason: Anxiety Last Admin: 09/14/20 04:13 Dose: 1 mg Documented by: Metoprolol Tartrate (Metoprolol Tartrate 50 Mg Tab) 50 mg PO BID [facility] Last Admin: 09/14/20 10:14 Dose: Not Given Documented by: Midazolam HCl (Midazolam 2 Mg/2 Ml Inj) 2 mg IV Q10MIN PRN PRN Reason: Sedation Last Admin: 09/05/20 05:56 Dose: 2 mg Documented by: Multi-Ingred Cream/Lotion/Oil/Oint (Mineral Oil/Petrolatum, White Ophth Oint 3.5 Gm) 1 applic OU Q4HR PRN PRN Reason: Dry Eye(s) Ondansetron HCl (Ondansetron 4 Mg/2 Ml Inj) 4 mg IV Q8H PRN PRN Reason: Nausea And Vomiting Last Admin: 08/18/20 17:46 Dose: 4 mg Documented by: Simple Syrup (Simple Syrup 15 Ml) 15 ml FEEDTUBE PRN PRN PRN Reason: Hypoglycemia Simple Syrup (Simple Syrup 15 Ml) 30 ml FEEDTUBE PRN PRN PRN Reason: Hypoglycemia Sodium Bicarbonate (Sodium Bicarbonate 325 Mg Tab) 325 mg FEEDTUBE PRN PRN PRN Reason: For Clogged Feeding Tube Sodium Chloride (Sodium Chloride 0.9% 10 Ml Flush Syringe) 10 ml IV BID [facility] Last Admin: 09/14/20 12:00 Dose: 10 ml Documented by: Sodium Chloride (Sodium Chloride 0.9% 10 Ml Flush Syringe) 10 ml IV PRN PRN PRN Reason: LINE FLUSH Thiamine HCl (Thiamine 100 Mg Tab) 100 mg PO QDAY [facility] Last Admin: 09/14/20 09:59 Dose: 100 mg Documented by: Zinc Sulfate (Zinc Sulfate 220 Mg Cap) 220 mg PO BID [facility] Last Admin: 09/14/20 10:00 Dose: 220 mg Documented by: Review of Systems ROS unobtainable: due to endotracheal tube, due to mental status Physical Examination Vital Signs Pulse Ox 99 08/15/20 08:46 General appearance: other (intubated) Cardiac: Positive: irregularly irregular, S1/S2, Tachycardia Lungs: Positive: Decreased Breath Sounds, Oxygen, Ventilated Respirations Neuro: Positive: Other (intubated) Skin: Negative: Rash Results 09/14/20 06:25 09/14/20 06:25 CBC 09/14/20 Range/Units 06:25 WBC 11.2 H (4.5-11.0) K/mm3 RBC 3.20 L (3.65-5.03) M/mm3 Hgb 9.4 L (11.8-15.2) gm/dl Hct 29.9 L (35.5-45.6) % Plt Count 170 (140-440) K/mm3 Comprehensive Metabolic Panel 09/14/20 Range/Units 06:25 Sodium 156 H (137-145) mmol/L Potassium 4.4 (3.6-5.0) mmol/L Chloride 116.4 H (98-107) mmol/L Carbon Dioxide 28 (22-30) mmol/L BUN 49 H (9-20) mg/dL Creatinine 0.9 (0.8-1.3) mg/dL Glucose 337 H (75-100) mg/dL Calcium 8.0 L (8.4-10.2) mg/dL - Imaging and Cardiology Echo: report reviewed (07/31/2020 showed EF 60-65%, impaired relaxation, mild to mod LVH. ) EKG: report reviewed, image reviewed EKG interpretations - Telemetry EKG Rhythm: Atrial Fibrillation - EKG Supraventricular dysrhythmia: atrial fibrillation Assessment and Plan Agree with IV amio. Pt is currently receiving IV heparin, cont systemic AC cautiously in setting of anemia requiring PRBC tx. Cont supportive measures. Will follow. The patient has been seen in conjunction with Dr. Victor who agrees with the assessment and plan of care. - Patient Problems (1) Paroxysmal atrial fibrillation with RVR Current Visit: Yes Status: Acute (2) COVID-19 virus infection Current Visit: Yes Status: Acute (3) Sepsis Current Visit: Yes Status: Acute (4) Hypotension Current Visit: Yes Status: Acute (5) Acute hypoxemic respiratory failure Current Visit: Yes Status: Acute (6) Pneumonia Current Visit: Yes Status: Suspected (7) Necrosis of surgical wound Current Visit: Yes Status: Acute (8) CAD (coronary artery disease) Current Visit: Yes Status: Chronic Qualifiers: Coronary Disease-Associated Artery/Lesion type: samish artery [place] vs. transplanted heart: samish heart (9) History of coronary artery bypass graft Current Visit: Yes Status: Chronic (10) History of ETOH abuse Current Visit: Yes Status: Chronic (11) Anemia Current Visit: Yes Status: Acute (12) Hypernatremia Current Visit: Yes Status: Acute
[2020-09-14] MEDS ORDERED: HEPARIN/ 0.45% NACL DRIP 25,000 UNIT/500 ML BAG IV SCH (16:00)
--- NOTE | 2020-09-14 16:40 | XRay Report ---
CHEST - 1 VIEW INDICATION: hemoptysis COMPARISON: 09/12/2020 FINDINGS: Support devices: Stable support device positioning. Heart: Stable and within normal limits. Lungs/pleura: Stable scattered bilateral lung opacities. No new consolidation, pleural effusion or p neumothorax. Additional findings: None. IMPRESSION: No change since 09/12/2020. No new acute process. Bilateral airspace opacities are concerning for yessi atous changes or viral infection. Signer Name: Jone Duncan Jr, MD Signed: 09/14/2020 4:36 PM Workstation Name: [id number]
[2020-09-14 17:06] LABS: Hematocrit 24.4 % (35.5-45.6); Hemoglobin 7.9 gm/dl (11.8-15.2)
[2020-09-14] MEDS: fentaNYL 100 MCG/2 ML INJ IV PRN (17:50)
[2020-09-14 19:18] LABS: INR 1.27 (0.87-1.13)
[2020-09-14] MEDS: TAMSULOSIN 0.4 MG CAP PO SCH (21:55)
[2020-09-15] MEDS: INSULIN LISPRO 100 UNIT/ML VIAL 3 mL SUB-Q SCH ×4 (00:03→17:56)
[2020-09-15] MEDS: DEXTROSE 5% IN WATER 1,000 ML IV SCH (05:29)
[2020-09-15] MEDS: AMIODARONE 900 MG in DEXTROSE 5% IN WATER 482 ML IV SCH ×2 (05:31→23:23)
[2020-09-15 05:57] LABS: Hematocrit 20.1 % (35.5-45.6); Hemoglobin 6.5 gm/dl (11.8-15.2); Mean Corpuscular HGB Conc 32 % (32-34); Mean Corpuscular Volume 95 fl (84-94); Platelet Count 112 K/mm3 (140-440); Red Blood Count 2.12 M/mm3 (3.65-5.03)
[2020-09-15 06:12] LABS: Alanine Aminotransferase 36 units/L (7-56); BUN/Creatinine Ratio 43; Blood Urea Nitrogen 39 mg/dL (9-20); Calcium 7.1 mg/dL (8.4-10.2); Hemolysis Index 1
[2020-09-15 06:19] LABS: Red Cell Distribution Width 20.7 % (13.2-15.2)
[2020-09-15] MEDS ORDERED: SODIUM CHLORIDE 0.9% 500 ML 500 ML IV NR (07:50)
[2020-09-15] MEDS: ACETAMINOPHEN 325 MG TAB PO PRN (08:02)
[2020-09-15] MEDS: fentaNYL 100 MCG/2 ML INJ IV PRN (08:03)
[2020-09-15] MEDS: NORepinephrine/NS 4 MG-250 ML 4 MG/250 ML BAG IV SCH ×2 (08:53→19:19)
[2020-09-15] MEDS: amLODIPine 10 MG TAB PO SCH (09:16)
[2020-09-15] MEDS: INSULIN GLARGINE 100 UNITS/ML SUB-Q SCH ×2 (09:16→17:56)
[2020-09-15] MEDS: LANSOPRAZOLE 30 MG SOLUTAB FEEDTUBE SCH (09:18)
[2020-09-15] MEDS: CLOPIDOGREL 75 MG TAB PO SCH (09:18)
[2020-09-15] MEDS: CILOSTAZOL 100 MG TAB PO SCH ×2 (09:18→21:41)
[2020-09-15] MEDS: FOLIC ACID 1 MG TAB PO SCH (09:18)
[2020-09-15] MEDS: THIAMINE 100 MG TAB PO SCH (09:19)
[2020-09-15] MEDS: ZINC SULFATE 220 MG CAP PO SCH ×2 (09:19→21:41)
[2020-09-15] MEDS: METOPROLOL TARTRATE 50 MG TAB PO SCH ×2 (09:19→21:41)
[2020-09-15] MEDS: ASCORBIC ACID 500 MG TAB PO SCH ×2 (09:19→21:41)
--- NOTE | 2020-09-15 10:55 | Progress Note ---
Assessment and Plan critically ill now on pressors afib w vvr hold bb cont iv amio off heparin due to worsening anemia - Patient Problems (1) Acute hypoxemic respiratory failure Current Visit: Yes Status: Acute (2) Anemia Current Visit: Yes Status: Acute (3) COVID-19 virus infection Current Visit: Yes Status: Acute (4) Coronavirus infection Current Visit: Yes Status: Acute (5) Hypertension Current Visit: Yes Status: Acute Qualifiers: Hypertension type: essential hypertension Qualified Code(s): I10 - Essential (primary) hypertension (6) Hypotension Current Visit: Yes Status: Acute (7) Paroxysmal atrial fibrillation with RVR Current Visit: Yes Status: Acute (8) Toxic metabolic encephalopathy Current Visit: Yes Status: Acute (9) CAD (coronary artery disease) Current Visit: Yes Status: Chronic Qualifiers: Coronary Disease-Associated Artery/Lesion type: [place] artery [place] vs. transplanted heart: [place] heart (10) History of ETOH abuse Current Visit: Yes Status: Chronic (11) History of coronary artery bypass graft Current Visit: Yes Status: Chronic (12) Pneumonia Current Visit: Yes Status: Suspected (13) Gangrene of left foot Current Visit: No Status: Acute Subjective Date of service: 09/15/20 Principal diagnosis: Ac hypoxemic resp failure; COVID-19; Pneumonia; Sepsis; PVD; L. foot ulcer Interval history: no changes overnight discussed w rn Objective Vital Signs Temp Pulse Pulse Resp BP Pulse Ox 09/15/20 10:36 85 98/62 95 09/15/20 10:30 71 22 98/62 95 09/15/20 10:15 89 23 101/56 96 09/15/20 10:01 92 H 21 117/39 96 09/15/20 09:45 107 H 24 119/45 96 09/15/20 09:31 112 H 23 119/45 96 09/15/20 09:19 140 H 106/41 09/15/20 09:15 120 H 31 H 110/41 95 09/15/20 09:01 124 H 24 91/44 94 09/15/20 08:45 119 H 19 109/40 93 09/15/20 08:31 119 H 18 109/40 95 09/15/20 08:17 131 H 127/50 95 09/15/20 08:15 122 H 17 98/42 94 09/15/20 08:01 133 H 22 117/58 94 09/15/20 08:00 102.4 F H 133 H 22 94 09/15/20 07:45 133 H 23 99/50 96 09/15/20 07:31 132 H 25 H 99/50 92 09/15/20 07:15 134 H 29 H 137/53 91 09/15/20 07:01 127 H 38 H 93/39 90 09/15/20 06:45 115 H 16 158/53 90 09/15/20 06:31 141 H 21 137/53 87 09/15/20 06:15 138 H 27 H 143/44 86 09/15/20 06:00 114 H 17 128/103 91 09/15/20 05:45 107 H 21 143/44 92 09/15/20 05:30 119 H 23 143/44 89 09/15/20 05:15 120 H 24 147/48 90 09/15/20 05:00 115 H 22 147/48 93 09/15/20 04:45 108 H 24 133/47 93 09/15/20 04:39 87 133/47 96 09/15/20 04:31 100 H 22 133/47 92 09/15/20 04:15 97 H 21 124/49 09/15/20 04:01 98 H 21 122/49 09/15/20 04:00 105 H 09/15/20 03:45 107 H 22 122/49 09/15/20 03:30 105 H 24 115/46 09/15/20 03:27 98.8 F 09/15/20 03:15 96 H 23 115/43 84 09/15/20 03:01 93 H 20 131/41 52 L 09/15/20 02:45 111 H 22 124/46 31 L 09/15/20 02:31 96 H 17 119/48 95 09/15/20 02:15 106 H 21 106/43 90 09/15/20 02:01 107 H 20 106/43 09/15/20 01:45 110 H 21 97/46 91 09/15/20 01:31 104 H 19 103/43 09/15/20 01:15 96 H 21 90/43 93 09/15/20 01:01 109 H 19 82/38 76 L 09/15/20 00:45 102 H 20 125/53 84 09/15/20 00:30 97 H 22 125/53 86 09/15/20 00:16 98 H 23 133/54 87 09/15/20 00:00 113 H 24 133/54 96 09/14/20 23:57 114 H 129/53 95 09/14/20 23:46 81 21 129/53 89 09/14/20 23:42 102 H 09/14/20 23:32 98.9 F 09/14/20 23:30 80 21 97/49 93 09/14/20 23:15 81 14 109/43 95 09/14/20 23:00 104 H 19 109/49 98 09/14/20 22:45 87 19 128/54 09/14/20 22:34 94 H 19 119/51 93 09/14/20 22:30 115 H 21 119/51 93 09/14/20 22:16 103 H 20 139/64 93 09/14/20 22:00 145 H 23 116/56 92 09/14/20 21:54 153 H 129/59 09/14/20 21:46 141 H 21 129/59 93 09/14/20 21:30 125 H 22 140/62 93 09/14/20 21:16 135 H 21 149/57 94 09/14/20 21:00 131 H 21 144/54 91 09/14/20 20:53 126 H 103/64 95 09/14/20 20:46 127 H 15 103/64 100 09/14/20 20:30 141 H 20 109/60 91 09/14/20 20:16 119 H 17 139/70 91 09/14/20 20:00 133 H 21 169/77 09/14/20 19:46 138 H 21 166/56 87 09/14/20 19:35 98.8 F 09/14/20 19:30 149 H 24 79/46 93 09/14/20 19:16 131 H 22 79/46 92 09/14/20 19:00 137 H 21 82/49 09/14/20 18:46 115 H 23 108/50 90 09/14/20 18:30 130 H 23 111/56 09/14/20 18:16 144 H 20 148/59 90 09/14/20 18:00 150 H 20 148/59 78 L 09/14/20 17:46 126 H 24 148/59 90 09/14/20 17:30 125 H 24 132/76 93 09/14/20 17:16 147 H 25 H 132/76 94 09/14/20 17:00 131 H 25 H 147/51 93 09/14/20 16:46 118 H 22 134/55 92 09/14/20 16:30 118 H 25 H 133/68 93 09/14/20 16:16 118 H 21 139/60 91 09/14/20 16:00 100 F H 109 H 26 H 152/59 92 09/14/20 15:46 109 H 24 141/54 90 09/14/20 15:30 135 H 25 H 138/52 90 09/14/20 15:16 127 H 25 H 148/67 91 09/14/20 15:10 109 H 132/64 93 09/14/20 15:00 119 H 14 133/61 93 09/14/20 14:46 109 H 20 132/64 93 09/14/20 14:30 113 H 22 130/50 91 09/14/20 14:16 128 H 17 127/49 93 09/14/20 14:00 123 H 19 87/52 91 09/14/20 13:46 113 H 21 100/53 93 09/14/20 13:30 118 H 19 101/50 91 09/14/20 13:16 131 H 22 99/49 92 09/14/20 13:00 133 H 20 96/47 91 09/14/20 12:46 149 H 21 93/46 93 09/14/20 12:30 146 H 19 85/49 91 09/14/20 12:16 144 H 21 110/45 91 09/14/20 12:00 98.9 F 137 H 28 H 104/47 83 L 09/14/20 11:46 125 H 24 96/47 92 09/14/20 11:30 147 H 24 87/46 92 09/14/20 11:16 133 H 24 93/49 93 09/14/20 11:00 156 H 26 H 86/53 93 - Physical Examination Neuro: Positive: Other (intubated) Skin: Negative: Rash - Labs and Meds Cardiac Enzymes 09/15/20 Range/Units 05:26 AST 40 (5-40) units/L Coagulation 09/14/20 Range/Units 16:52 PT 15.9 H (12.2-14.9) Sec. INR 1.27 H (0.87-1.13) APTT 68.0 H* (24.2-36.6) Sec. CBC 09/14/20 09/15/20 Range/Units Unknown 05:26 WBC 2.4 L (4.5-11.0) K/mm3 RBC 2.12 L (3.65-5.03) M/mm3 Hgb 7.9 L 6.5 L (11.8-15.2) gm/dl Hct 24.4 L 20.1 L (35.5-45.6) % Plt Count 124 L 112 L (140-440) K/mm3 Comprehensive Metabolic Panel 09/15/20 Range/Units 05:26 Sodium 137 D (137-145) mmol/L Potassium 3.7 (3.6-5.0) mmol/L Chloride 104.4 (98-107) mmol/L Carbon Dioxide 25 (22-30) mmol/L BUN 39 H (9-20) mg/dL Creatinine 0.9 (0.8-1.3) mg/dL Glucose 262 H (75-100) mg/dL Calcium 7.1 L (8.4-10.2) mg/dL AST 40 (5-40) units/L ALT 36 (7-56) units/L Alkaline Phosphatase 54 (35-129) units/L Total Protein 4.7 L (6.3-8.2) g/dL Albumin 2.0 L (3.9-5) g/dL - Imaging and Cardiology EKG: report reviewed, image reviewed Echo: report reviewed (07/31/2020 showed EF 60-65%, impaired relaxation, mild to mod LVH. ) - Allied health notes Allied health notes reviewed: nursing
--- NOTE | 2020-09-15 13:32 | Progress Note ---
Assessment and Plan Assessment and plan: 64 YO Male HD #26 with PVD, Coronavirus Infection, Acute Respiratory Failure, Sepsis, Pneumonia, Toxic Encephalopathy, Necrosis of Surgical wound. Patient resting in bed. No acute decompensation overnight. No improvement overnight. Patient remains critically ill. Patient prognosis is poor to guarded. 09/10: Significant elevated blood sugar. Patient with labile blood sugar issues. Aspiration precautions continue vent weaning per roll capper. Continue antibiotics management. Patient with noted hypernatremia we will continue to monitor sodium levels. Also with anemia of chronic disease we will monitor H&H closely. 09/11; Patient remains critically ill, continue wound care, monitor and adjust insulin for better control. 09/12: Noted Anemia, Will give 2 units PRBC. Continue supportive care, wean from vent as tolerated, Continue to monitor sodium level. IR input noted, adjust further insulin 09/13: Adjust free water to Q2Hr, monitor H/H, Check labs, continue supportive care. Insulin further adjusted for better control 09/14: Patient with Hypotension, will discuss with dairy inspector about adjusting pressors. Renae exchange today, Continue abx 09/15: Noted severe anemia, likely secondary to Hematuria, will obtain Urology consult, bladder ultrasound. Will hold the Heparin drip at this time. Give a unit of PRBC. (1) severe sepsis with shock Current Visit: Yes Status: Acute Plan to address problem: Sepsis protocol: CBC, CMP, IV fluid resuscitation therapy as clinically indicated, IV antibiotic therapy, monitor urine output every shift, maintain mean arterial blood pressure greater than or equal to 65, (2) Acute hypoxemic respiratory failure Current Visit: Yes Status: Acute Plan to address problem: Wean vent as tolerated, daily ABG, spontaneous breathing trial daily, chest x- ray, sedation holiday, supportive care. (3) Necrosis of surgical wound Current Visit: Yes Status: Acute Plan to address problem: Surgery team consulted. pain control, supportive care. Further care as per vascular surgery team. (4) CHF (congestive heart failure) Current Visit: No Status: Chronic Qualifiers: Heart failure chronicity: chronic Plan to address problem: Strict I/O, monitor urine output every shift, daily weight, monitor fluid balance, afterload reduction, blood pressure control. (5) Hypertension Current Visit: Yes Status: Acute Qualifiers: Hypertension type: essential hypertension Qualified Code(s): I10 - Essential (primary) hypertension Plan to address problem: Monitor blood pressure every shift, continue medical management (6) UTI (urinary tract infection) Current Visit: Yes Status: Acute Qualifiers: Encounter type: initial encounter Plan to address problem: CBC, CMP, urinalysis, IV antibiotic therapy. (7) Coronavirus infection Current Visit: Yes Status: Acute Plan to address problem: Coronavirus protocol: IV antibiotic therapy, IV steroid therapy, supplemental oxygen, vitamin C supplementation, zinc supplementation, (8) peripheral vascular disease (9) DVT prophylaxis Current Visit: Yes Status: Acute Plan to address problem: SCD to bilateral lower extremities while in bed, anticoagulation as per surgical team (9) Toxic metabolic encephalopathy Current Visit: Yes Status: Acute Plan to address problem: Supportive care, treat sepsis, (10) Advance care planning Current Visit: Yes Status: Acute Plan to address problem: Disease education conducted, patient is full code, prognosis discussed, care plan discussed, patient knowledges understanding and agreement with care plan, +30 minutes (10) history of alcohol abuse [11] history of gout [12] left lower extremity/left foot ulcer The high probability of a clinically significant, sudden or life threatening deterioration of the [cardiac, pulmonary, renal, infectious disease] system(s) required my full and direct attention, intervention and personal management. The aggregate critical care time was [65] minutes. This time is in addition to time spent performing reported procedures but includes the following: [x] Data Review and interpretation [x] Patient assessment and monitoring of vital signs [x] Documentation [x] Medication orders and management History Interval history: Patient seen and examined remains on full mechanical ventilation, noted with hematuria at this. Hospitalist Physical - Physical exam Narrative exam: General appearance: Present: Mild distress on full ventilatory support. Limited exam due to PPE conservation during COVID Pandemic, STILL WITH MOVEMENT NON PURPOSEFUL - EENT Eyes: Present: miosis ENT: hearing decreased - Neck Neck: Present: supple - Respiratory Respiratory effort: labored Respiratory: bilateral: diminished, rhonchi - Cardiovascular Rhythm: regular Heart Sounds: Present: S1 & S2 - Extremities Extremity abnormal: edema Peripheral Pulses: abnormal (Capillary refill greater than 3.5 seconds) - Abdominal General gastrointestinal: soft, non-tender, non-distended - Integumentary Integumentary: Present: dressing and wound vac to lower ext - Psychiatric Psychiatric: no appropriate mood/affect, no intact judgment & insight, no memory intact - Neurologic Neurologic: CNII-XII intact, no gait normal - Constitutional Vitals: Temp Pulse Resp BP Pulse Ox 99.8 F H 74 22 104/49 94 09/15/20 12:45 09/15/20 12:45 09/15/20 12:45 09/15/20 12:45 09/15/20 12:45 General appearance: Present: other (intubated) Results - Labs CBC & Chem 7: 09/15/20 05:26 09/15/20 05:26 Labs: Laboratory Last Values WBC 2.4 K/mm3 (4.5-11.0) L 09/15/20 05:26 RBC 2.12 M/mm3 (3.65-5.03) L 09/15/20 05:26 Hgb 6.5 gm/dl (11.8-15.2) L 09/15/20 05:26 Hct 20.1 % (35.5-45.6) L 09/15/20 05:26 MCV 95 fl (84-94) H 09/15/20 05:26 MCH 31 pg (28-32) 09/15/20 05:26 MCHC 32 % (32-34) 09/15/20 05:26 RDW 20.7 % (13.2-15.2) H 09/15/20 05:26 Plt Count 112 K/mm3 (140-440) L 09/15/20 05:26 Lymph % (Auto) 7.1 % (13.4-35.0) L 09/13/20 09:07 [place] % (Auto) 3.0 % (0.0-7.3) 09/13/20 09:07 Eos % (Auto) 0.0 % (0.0-4.3) 09/13/20 09:07 Baso % (Auto) 0.6 % (0.0-1.8) 09/13/20 09:07 Lymph # (Auto) 0.9 K/mm3 (1.2-5.4) L 09/13/20 09:07 [place] # (Auto) 0.4 K/mm3 (0.0-0.8) 09/13/20 09:07 Eos # (Auto) 0.0 K/mm3 (0.0-0.4) 09/13/20 09:07 Baso # (Auto) 0.1 K/mm3 (0.0-0.1) 09/13/20 09:07 Add Manual Diff Complete 09/13/20 09:07 Seg Neutrophils % 89.3 % (40.0-70.0) H 09/13/20 09:07 Nucleated RBC % Not Reportable 09/13/20 09:07 Seg Neutrophils # 10.8 K/mm3 (1.8-7.7) H 09/13/20 09:07 WBC Morphology Not Reportable 09/13/20 09:07 Hypersegmented Neuts Not Reportable 09/13/20 09:07 Hyposegmented Neuts Not Reportable 09/13/20 09:07 Hypogranular Neuts Not Reportable 09/13/20 09:07 Smudge Cells Not Reportable 09/13/20 09:07 Toxic Granulation Not Reportable 09/13/20 09:07 Toxic Vacuolation Not Reportable 09/13/20 09:07 Dohle Bodies Not Reportable 09/13/20 09:07 Pelger-Huet Anomaly Not Reportable 09/13/20 09:07 [place] Rods Not Reportable 09/13/20 09:07 Platelet Estimate Not Reportable 09/13/20 09:07 Clumped Platelets Not Reportable 09/13/20 09:07 Plt Clumps, EDTA Not Reportable 09/13/20 09:07 Large Platelets Not Reportable 09/13/20 09:07 Giant Platelets Not Reportable 09/13/20 09:07 Platelet Satelliting Not Reportable 09/13/20 09:07 Plt Morphology Comment Not Reportable 09/13/20 09:07 RBC Morphology Not Reportable 09/13/20 09:07 Dimorphic RBCs Not Reportable 09/13/20 09:07 Polychromasia Not Reportable 09/13/20 09:07 Hypochromasia Not Reportable 09/13/20 09:07 Poikilocytosis Not Reportable 09/13/20 09:07 Anisocytosis Not Reportable 09/13/20 09:07 Microcytosis Not Reportable 09/13/20 09:07 Macrocytosis Not Reportable 09/13/20 09:07 Spherocytes Not Reportable 09/13/20 09:07 Pappenheimer Bodies Not Reportable 09/13/20 09:07 Sickle Cells Not Reportable 09/13/20 09:07 Target Cells Not Reportable 09/13/20 09:07 Tear Drop Cells Not Reportable 09/13/20 09:07 Ovalocytes Not Reportable 09/13/20 09:07 Helmet Cells Not Reportable 09/13/20 09:07 [place] Bodies Not Reportable 09/13/20 09:07 Granite Rings Not Reportable 09/13/20 09:07 [place] Cells Not Reportable 09/13/20 09:07 Bite Cells Not Reportable 09/13/20 09:07 Crenated Cell Not Reportable 09/13/20 09:07 Elliptocytes Not Reportable 09/13/20 09:07 Acanthocytes (Spur) Not Reportable 09/13/20 09:07 Rouleaux Not Reportable 09/13/20 09:07 Hemoglobin C Crystals Not Reportable 09/13/20 09:07 Schistocytes Not Reportable 09/13/20 09:07 Malaria parasites Not Reportable 09/13/20 09:07 [place] Bodies Not Reportable 09/13/20 09:07 Hem Pathologist Commnt No 09/13/20 09:07 PT 15.9 Sec. (12.2-14.9) H 09/14/20 16:52 INR 1.27 (0.87-1.13) H 09/14/20 16:52 APTT 68.0 Sec. (24.2-36.6) H* 09/14/20 16:52 D-Dimer 1449.12 ng/mlDDU (0-234) H 09/08/20 19:15 Heparin Anti-Xa Level 2.00 U.I./ml (0.3-0.7) H 09/14/20 23:32 ABG pH 7.475 (7.320-7.450) H 09/15/20 04:33 POC ABG pCO2 34.8 mmHg (32.0-48.0) 09/15/20 04:33 ABG pCO2 48.6 mm Hg 09/12/20 03:40 POC ABG pO2 44.0 mmHg (83-108) L 09/15/20 04:33 ABG pO2 77.1 mm Hg (80.0-90.0) L 09/12/20 03:40 POC ABG HCO3 25 09/15/20 04:33 ABG HCO3 31.3 mmol/L (20.0-26.0) H 09/12/20 03:40 ABG O2 Saturation 97.2 % (95.0-99.0) 09/12/20 03:40 ABG O2 Content 7.4 (0.0-44) 09/12/20 03:40 POC ABG Base Excess 1.5 09/15/20 04:33 ABG Base Excess 6.4 mmol/L (-2.0-3.0) H 09/12/20 03:40 ABG Hemoglobin 7.5 (12.0-17.5) L 09/15/20 04:33 ABG Oxyhemoglobin 79 (94-98) L 09/15/20 04:33 ABG Carboxyhemoglobin 1.6 % (0.0-5.0) 09/12/20 03:40 ABG Methemoglobin 0 (0.0-1.5) 09/15/20 04:33 ABG Sodium 134.7 mmol/L (136.0-145.0) L 09/15/20 04:33 ABG Potassium 3.7 mmol/L (3.40-4.50) 09/15/20 04:33 ABG Chloride 107.0 mmol/L (98-107) 09/15/20 04:33 ABG Glucose 259 mg/dL (65-95) H 09/15/20 04:33 Oxyhemoglobin 95.4 % (95.0-99.0) 09/12/20 03:40 Carboxyhemoglobin 1.8 (0.5-1.5) H 09/15/20 04:33 FiO2 50 09/15/20 04:33 Sodium 137 mmol/L (137-145) D 09/15/20 05:26 Potassium 3.7 mmol/L (3.6-5.0) 09/15/20 05:26 Chloride 104.4 mmol/L (98-107) 09/15/20 05:26 Carbon Dioxide 25 mmol/L (22-30) 09/15/20 05:26 Anion Gap 11 mmol/L 09/15/20 05:26 BUN 39 mg/dL (9-20) H 09/15/20 05:26 Creatinine 0.9 mg/dL (0.8-1.3) 09/15/20 05:26 Estimated GFR > 60 ml/min 09/15/20 05:26 BUN/Creatinine Ratio 43 % 09/15/20 05:26 Glucose 262 mg/dL (75-100) H 09/15/20 05:26 POC Glucose 261 mg/dL (70-105) H 09/15/20 12:20 Lactic Acid 1.40 mmol/L (0.7-2.0) 09/02/20 15:55 Calcium 7.1 mg/dL (8.4-10.2) L 09/15/20 05:26 Phosphorus 4.20 mg/dL (2.5-4.5) 09/14/20 06:25 Magnesium 2.60 mg/dL (1.7-2.3) H 09/14/20 06:25 Ferritin 1485.0 ng/mL (30.0-300.0) H 09/08/20 19:15 Total Bilirubin 0.70 mg/dL (0.1-1.2) 09/15/20 05:26 AST 40 units/L (5-40) 09/15/20 05:26 ALT 36 units/L (7-56) 09/15/20 05:26 Alkaline Phosphatase 54 units/L (35-129) 09/15/20 05:26 Lactate Dehydrogenase 541 units/L (91-180) H 09/08/20 19:15 C-Reactive Protein 4.90 mg/dL (0.00-1.30) H 09/08/20 19:15 Total Protein 4.7 g/dL (6.3-8.2) L 09/15/20 05:26 Albumin 2.0 g/dL (3.9-5) L 09/15/20 05:26 Albumin/Globulin Ratio 0.7 % 09/15/20 05:26 Procalcitonin 0.16 ng/mL (<0.15) 09/08/20 19:15 Arterial Blood Glucose 259 mg/dL (65-95) H 09/15/20 04:33 Arterial Blood Ionized Calcium 4.4 mg/dL (4.6-5.3) L 09/15/20 04:33 Urine Color Yellow (Yellow) 08/15/20 Unknown Urine Turbidity Clear (Clear) 08/15/20 Unknown Urine pH 6.0 (5.0-7.0) 08/15/20 Unknown Ur Specific [place] 1.017 (1.003-1.030) 08/15/20 Unknown Urine Protein 100 mg/dl mg/dL (Negative) 08/15/20 Unknown Urine Glucose (UA) 50 mg/dL (Negative) 08/15/20 Unknown Urine Ketones Neg mg/dL (Negative) 08/15/20 Unknown Urine Blood Lg (Negative) 08/15/20 Unknown Urine Nitrite Neg (Negative) 08/15/20 Unknown Urine Bilirubin Neg (Negative) 08/15/20 Unknown Urine Urobilinogen < 2.0 mg/dL (<2.0) 08/15/20 Unknown Ur Leukocyte Esterase Sm (Negative) 08/15/20 Unknown Urine WBC (Auto) 31.0 /HPF (0.0-6.0) H 08/15/20 Unknown Urine RBC (Auto) 46.0 /HPF (0.0-6.0) 08/15/20 Unknown Urine Mucus Few /HPF 08/15/20 Unknown Nasal Screen MRSA (PCR) Negative (Negative) 09/06/20 12:41 Vancomycin Trough 14.2 ug/mL (5.0-20.0) 09/05/20 11:12 Coronavirus (PCR) Positive (Negative) A 08/29/20 Unknown Blood Type O POSITIVE 09/12/20 13:30 Antibody Screen Negative 09/12/20 13:30 Crossmatch See Detail 09/12/20 13:30 Renae/IV: Voiding Method Self-Catheterization IV Catheter Type [Right Hand] INT / Saline Lock IV Catheter Type [Right Upper PICC Line arm] IV Catheter Type [Right Wrist] INT / Saline Lock IV Catheter Type [Right INT / Saline Lock Forearm] IV Catheter Type [Left Hand] INT / Saline Lock Active Medications - Current Medications Current Medications: Generic Name Dose Route Start Last Admin Trade Name Freq PRN Reason Stop Dose Admin Acetaminophen 650 mg 08/15/20 18:13 09/15/20 08:02 Acetaminophen 325 Mg Tab PO 650 mg Q4H PRN Administration Pain MILD(1-3)/Fever >100.5/REYES Albuterol 2.5 mg 08/15/20 18:13 08/20/20 12:53 Albuterol 2.5 Mg/3 Ml Nebu IH 2.5 mg Q4HRT PRN Administration Shortness Of Breath Amlodipine Besylate 10 mg 08/16/20 10:00 09/15/20 09:16 Amlodipine 10 Mg Tab PO Not Given QDAY DELFINO Lipase/Protease/Amylase 1 each 09/13/20 19:28 Lipase 10,500/Protease 25,000/Amylase 43,750 (Units) Dr Cap FEEDTUBE PRN PRN For Clogged Feeding Tube Ascorbic Acid 500 mg 09/03/20 22:00 09/15/20 09:19 Ascorbic Acid 500 Mg Tab PO 500 mg BID DELFINO Administration Atorvastatin Calcium 40 mg 08/15/20 22:00 09/14/20 21:54 Atorvastatin 40 Mg Tab PO 40 mg QHS DELFINO Administration Cilostazol 100 mg 08/15/20 22:00 09/15/20 09:18 Cilostazol 100 Mg Tab PO 100 mg BID DELFINO Administration Clopidogrel Bisulfate 75 mg 08/16/20 10:00 09/15/20 09:18 Clopidogrel 75 Mg Tab PO 75 mg QDAY DELFINO Administration Dextrose 50 ml 09/10/20 13:56 Dextrose 50% In Water (25gm) 50 Ml Syringe IV Q30MIN PRN Hypoglycemia Protocol Fentanyl 50 mcg 09/05/20 05:23 09/15/20 08:03 Fentanyl 100 Mcg/2 Ml Inj IV 50 mcg Q10MIN PRN Administration ANALGESIA Folic Acid 1 mg 08/16/20 10:00 09/15/20 09:18 Folic Acid 1 Mg Tab PO 1 mg QDAY DELFINO Administration Hydrophilic Ointment 1 applic 09/05/20 05:23 Lip Therapy Vaseline TP Q2HR PRN Dry Lips Norepinephrine 4 mg in 250 mls @ 7.5 mls/hr 09/02/20 15:00 09/15/20 11:12 Levophed Drip 4 Mg/Ns 250 Ml IV 8 mcg/min TITR DELFINO 30 mls/hr Titration Protocol 2 MCG/MIN Vasopressin 20 unit/ Sodium 101 mls @ 9.09 mls/hr 09/02/20 16:00 09/14/20 21 :55 Chloride IV 0 units/min TITR DELFINO 0 mls/hr Titration Protocol 0.03 UNITS/MIN Fentanyl Citrate 2,000 mcg in 100 mls @ 4.465 mls/hr 09/05/20 06:00 09/11/20 19:07 Fentanyl Drip Premix IV 0 mcg/kg/hr TITR DELFINO 0 mls/hr Titration Protocol 1 MCG/KG/HR Midazolam HCl 100 mg/ Sodium 100 mls @ 2 mls/hr 09/05/20 06:00 09/06/20 08:30 Chloride IV 0 mg/hr TITR DELFINO 0 mls/hr Titration Protocol 2 MG/HR Dextrose 1,000 mls @ 100 mls/hr 09/13/20 20:00 09/15/20 05:29 D5w IV 09/17/20 05:59 100 mls/hr DIRECT DELFINO Administration Levofloxacin/Dextrose 750 mg in 150 mls @ 100 mls/hr 09/14/20 10:00 09/15/20 09:23 Levaquin 750mg/150ml IV 09/17/20 09:59 100 mls/hr Q24H DELFINO Administration Protocol Amiodarone HCl 900 mg/ 500 mls @ 33.333 mls/hr 09/14/20 13:30 09/15/20 10:05 Dextrose IV 1 mg/min DIRECT DELFINO 33.333 mls/hr Infusion Protocol 1 MG/MIN Sodium Chloride 500 mls @ 0 mls/hr 09/15/20 07:50 09/15/20 11:16 Nacl 0.9% 500 Ml IV 09/15/20 23:59 10 mls/hr ONCE NR Administration As Directed Insulin Glargine 40 units 09/14/20 17:00 09/15/20 09:16 Insulin Glargine 100 Units/Ml SUB-Q 40 units BIDDIAB DELFINO Administration Insulin Human Lispro 0 unit 09/10/20 18:00 09/15/20 12:34 Insulin Lispro 100 Unit/Ml Vial 3 Ml SUB-Q 6 unit Q6H DELFINO Administration Protocol Lansoprazole 30 mg 09/05/20 10:00 09/15/20 09:18 Lansoprazole 30 Mg Solutab FEEDTUBE 30 mg QDAY DELFINO Administration Loperamide HCl 2 mg 08/26/20 23:00 08/28/20 12:51 Loperamide 2 Mg Cap PO 2 mg PRN PRN Administration Diarrhea Lorazepam 1 mg 09/06/20 17:25 09/14/20 04:13 Lorazepam 2 Mg/Ml Vial IV 1 mg Q4H PRN Administration Anxiety Metoprolol Tartrate 50 mg 08/15/20 22:00 09/15/20 09:19 Metoprolol Tartrate 50 Mg Tab PO 50 mg BID DELFINO Administration Midazolam HCl 2 mg 09/05/20 05:23 09/05/20 05:56 Midazolam 2 Mg/2 Ml Inj IV 2 mg Q10MIN PRN Administration Sedation Multi-Ingred Cream/Lotion/Oil/Oint 1 applic 09/05/20 05:23 Mineral Oil/Petrolatum, White Ophth Oint 3.5 Gm OU Q4HR PRN Dry Eye(s) Ondansetron HCl 4 mg 08/15/20 18:13 08/18/20 17:46 Ondansetron 4 Mg/2 Ml Inj IV 4 mg Q8H PRN Administration Nausea And Vomiting Simple Syrup 15 ml 09/13/20 19:28 Simple Syrup 15 Ml FEEDTUBE PRN PRN Hypoglycemia Simple Syrup 30 ml 09/13/20 19:28 Simple Syrup 15 Ml FEEDTUBE PRN PRN Hypoglycemia Sodium Bicarbonate 325 mg 09/13/20 19:28 Sodium Bicarbonate 325 Mg Tab FEEDTUBE PRN PRN For Clogged Feeding Tube Sodium Chloride 10 ml 08/15/20 22:00 09/15/20 09:23 Sodium Chloride 0.9% 10 Ml Flush Syringe IV 10 ml BID DELFINO Administration Sodium Chloride 10 ml 08/15/20 18:13 Sodium Chloride 0.9% 10 Ml Flush Syringe IV PRN PRN LINE FLUSH Tamsulosin HCl 0.4 mg 09/14/20 22:00 09/14/20 21:55 Tamsulosin 0.4 Mg Cap PO Not Given QHS DELFINO Thiamine HCl 100 mg 08/16/20 10:00 09/15/20 09:19 Thiamine 100 Mg Tab PO 100 mg QDAY DELFINO Administration Zinc Sulfate 220 mg 09/03/20 22:00 09/15/20 09:19 Zinc Sulfate 220 Mg Cap PO 220 mg BID DELFINO Administration Nutrition/Malnutrition Assess - Dietary Evaluation Nutrition/Malnutrition Findings: Nutrition Notes Start: 08/21/20 14:41 Freq: Status: Active Protocol: Document 09/14/20 12:29 CW (Rec: 09/14/20 12:36 CW [id number]) Co-Sign 09/14/20 12:29 MK Nutrition Notes Need for Assessment generated from: MD Order Initial or Follow up Reassessment Current Diagnosis Coronary Artery Disease,Sepsis ,Hypertension,Heart Failure, Respiratory Failure, Hyperlipidemia Other Pertinent Diagnosis COVID(+),PVD, ETOH dep, pneu, gout, (L) foot ulcer Current Diet Vital HP at 70 mL/hr Labs/Tests Na 156 BUN 49 BG 337 Pertinent Medications Humalog D5w at 100ml/hr Lantus Height 5 ft 4 in Weight 83 kg [place] Body Weight (kg) 59.09 BMI 31.4 Weight change and time frame Wt gain noted, pt oliguric Weight Status Obese Subjective/Other Information FU for TF tolerance, wt, labs. Per MD order for TF management, RD informed RN to decrease TF rate for renal and BG control (pt on low carb formula). Per RN, pt is tolerating TF. Percent of energy/protein needs met: 84%/100% Burn Absent Trauma Absent GI Symptoms None Difficulty In Swallowing Current % PO Negligible Minimum of two criteria Yes Interpretation of Weight Loss (severe) >2% in 1 week Fluid Accumulation Mild (non-severe) Reduced [employer] Representative Strength N/A (non-severe) #3 Nutrition Diagnosis Malnutrition Diagnosis Progress(for reassessment Continues documentation) #2 Nutrition Diagnosis Inadequate oral intake Diagnosis Progress(for reassessment Continues documentation) #1 Nutrition Diagnosis Increased nutrient needs ( specify in comment below) Diagnosis Progress(for reassessment Continues documentation) Is patient on ventilator? Yes Is Patient Ambulatory and/or Out of Bed No REE-([facility]-confined to bed) 1848.252 Kcal/Kg value to use for calculation 19 Approximate Energy Requirements Using 1577 kcal/Kg Calculation Used for Recommendations Kcal/kg Additional Notes PRO needs: >118g (>2g/kg IBW) Fluid needs: 1mL/kcal Nutrition Intervention Change Diet Order: Continue TF at decreased rate of 65ml/hr Nutrition Support: Vital High Protein at 65ml/hr For hypernatremia flush 300ml q4h, once hypernatremia is resolved flush 100ml q4h Kcal 1,560 Protein (gm) 137 Fluid (mL) 1,304 Add Supplement/Snack (indicate name/kcal [place] BID /protein ) Provides kCal: 190 Provides Protein (gm) 5 Goal #1 Meet at least 80% of estimated energy and protein needs via TF Goal #2 Wound healing Anticipated Discharge Needs: Unable to determine at this time Follow-Up By: 09/18/20 Additional Comments FU for TF rate/tolerance, hypernatremia
--- NOTE | 2020-09-15 15:29 | Progress Note ---
Assessment and Plan Acute hypoxemic respiratory failure, on mechanical ventilatory support. COVID-19 infection. Bilateral pneumonia versus pulmonary edema. Severe sepsis with shock. Peripheral vascular disease. Anemia that is microcytic. History of alcohol abuse. Acute encephalopathy. History of obesity. History of coronary artery disease. History of gout. Hyperlipidemia. Hypertension, now hypotensive. Left lower extremity / left foot ulcer. - PRBC transfusion - Hold anticoagulation, trend H&H and resume if stable - wean vasopressors for target MAP > 65 mmHg (On levop-hed @ 6 mics/kasi) - increased peep to 14 (FiO2 bumped to 80% overnight) (PIP's in 20's) - continue Amiodarone drip - cardiology evaluation ongoing - completed D5W @ 100/hr X 4 liters - reduced free water to 250 mls q6h as hypernatremia resolved - reduce Lantus to 30 units SQ BID - continue care as below otherwise; - continue daily SAT and SBT assessment as tolerated - continue to wean supplemental oxygen for target O2 sat's > 92% acutely - VAP bundle addressed - continue lung protective strategies - continue bronchodilators with pulmonary hygiene per RT - wean per pulmonary driven protocols otherwise - continue accuchecks with glycemic control per SSI (While critically ill target blood glucose of 140-180 mg/dL; avoid hypoglycemia) - sedation prn for target RASS 0 to -1 - avoid nephrotoxins, renally dose all medications - accuchecks with glycemic control per SSI (While critically ill target blood glucose of 140-180 mg/dL; avoid hypoglycemia) - avoid benzodiazepine's, reduce the possibility of delirium - complete AB's per ID rec's - prn analgesia per CPOT score - Maintenance of sleep-wake cycle, avoid delirium - enteral nutritional support at goal rate as tolerated - G.I. & VTE prophylaxis - PT/OT/ROM exercises - continue mobility protocols for pressure ulcer prophylaxis - Monitor hemodynamics closely - continue other care per attending / other consultants - discharge planning ongoing concurrently COVID SPECIFIC INTERVENTIONS - completed Remdesivir as per ID/Pulmonary developed protocols - continue systemic steroids for severe COVID-19 infection empirically - follow repeat COVID tests results - zinc and vitamin C supplementation - Monitor inflammatory markers per facility protocol - ferritin, Ddimer, CRP - therapeutic anticoagulation per system Protocol based on d-dimer and clinical considerations - Continue contact and airborne isolation .... Re-evaluate in am & prn CONDITION: CRITICAL PROGNOSIS: GUARDED CODE STATUS: FULL CODE The high probability of a clinically significant, sudden or life-threatening deterioration of the [respiratory, cardiovascular, renal & neurologic] system(s) required my full and direct attention, intervention and personal management. The aggregate critical care time was [34] minutes without overlap. Time includes spent on; [x] Data Review and interpretation [x] Patient assessment and monitoring of vital signs [x] Documentation [x] Medication orders and management Subjective Date of service: 09/15/20 Principal diagnosis: Ac hypoxemic resp failure; COVID-19; Pneumonia; Sepsis; PVD; L. foot ulcer Interval history: Patient is seen today for: Acute hypoxemic respiratory failure; COVID-19 infection; Bilateral pneumonia versus pulmonary edema; Severe sepsis with shock; Peripheral vascular disease; Acute encephalopathy; Left lower extremity / left foot ulcer. Seen and examined at bedside; 24hour events reviewed; nursing and respiratory care staff consulted; no adverse overnight events reported to me; resting peacefully in bed; gross hematuria noted overnight post cabrales catheter; remains on vasopressors; still in A-fib but rate better controlled Objective Vital Signs - 12hr 09/15/20 09/15/20 09/15/20 03:30 03:45 04:00 Temperature Pulse Rate 105 H 107 H 105 H Pulse Rate [ From Monitor] Respiratory Rate Blood Pressure 115/46 122/49 O2 Sat by Pulse Oximetry 09/15/20 09/15/20 09/15/20 04:01 04:15 04:31 Temperature Pulse Rate 98 H 97 H 100 H Pulse Rate [ From Monitor] Respiratory 22 Rate Blood Pressure 122/49 124/49 133/47 O2 Sat by Pulse 92 Oximetry 09/15/20 09/15/20 09/15/20 04:39 04:45 05:00 Temperature Pulse Rate 87 108 H 115 H Pulse Rate [ From Monitor] Respiratory 24 22 Rate Blood Pressure 133/47 133/47 147/48 O2 Sat by Pulse 96 93 93 Oximetry 09/15/20 09/15/20 09/15/20 05:15 05:30 05:45 Temperature Pulse Rate 120 H 119 H 107 H Pulse Rate [ From Monitor] Respiratory 21 Rate Blood Pressure 147/48 143/44 143/44 O2 Sat by Pulse 90 89 92 Oximetry 09/15/20 09/15/20 09/15/20 06:00 06:15 06:31 Temperature Pulse Rate 114 H 138 H 141 H Pulse Rate [ From Monitor] Respiratory 17 27 H 21 Rate Blood Pressure 128/103 143/44 137/53 O2 Sat by Pulse 91 86 87 Oximetry 09/15/20 09/15/20 09/15/20 06:45 07:01 07:15 Temperature Pulse Rate 115 H 127 H 134 H Pulse Rate [ From Monitor] Respiratory 16 38 H 29 H Rate Blood Pressure 158/53 93/39 137/53 O2 Sat by Pulse 90 90 91 Oximetry 09/15/20 09/15/20 09/15/20 07:31 07:45 08:00 Temperature 102.4 F H Pulse Rate 132 H 133 H 122 H Pulse Rate [ 133 H From Monitor] Respiratory 25 H 23 22 Rate Blood Pressure 99/50 99/50 O2 Sat by Pulse 92 96 94 Oximetry 09/15/20 09/15/20 09/15/20 08:01 08:15 08:17 Temperature Pulse Rate 133 H 122 H 131 H Pulse Rate [ From Monitor] Respiratory 22 17 Rate Blood Pressure 117/58 98/42 127/50 O2 Sat by Pulse 94 94 95 Oximetry 09/15/20 09/15/20 09/15/20 08:31 08:45 09:01 Temperature Pulse Rate 119 H 119 H 124 H Pulse Rate [ From Monitor] Respiratory 18 19 24 Rate Blood Pressure 109/40 109/40 91/44 O2 Sat by Pulse 95 93 94 Oximetry 09/15/20 09/15/20 09/15/20 09:15 09:19 09:31 Temperature Pulse Rate 120 H 140 H 112 H Pulse Rate [ From Monitor] Respiratory 31 H 23 Rate Blood Pressure 110/41 106/41 119/45 O2 Sat by Pulse 95 96 Oximetry 09/15/20 09/15/20 09/15/20 09:45 10:01 10:15 Temperature Pulse Rate 107 H 92 H 89 Pulse Rate [ From Monitor] Respiratory 24 21 23 Rate Blood Pressure 119/45 117/39 101/56 O2 Sat by Pulse 96 96 96 Oximetry 09/15/20 09/15/20 09/15/20 10:30 10:36 10:45 Temperature Pulse Rate 71 85 73 Pulse Rate [ From Monitor] Respiratory 22 23 Rate Blood Pressure 98/62 98/62 104/39 O2 Sat by Pulse 95 95 93 Oximetry 09/15/20 09/15/20 09/15/20 11:01 11:15 11:30 Temperature 99.2 F Pulse Rate 73 84 79 Pulse Rate [ From Monitor] Respiratory 21 20 21 Rate Blood Pressure 99/42 99/42 118/44 O2 Sat by Pulse 94 96 93 Oximetry 09/15/20 09/15/20 09/15/20 11:31 11:45 12:00 Temperature 99.7 F H 99.2 F Pulse Rate 83 75 74 Pulse Rate [ 76 From Monitor] Respiratory 22 22 22 Rate Blood Pressure 118/44 118/44 114/45 O2 Sat by Pulse 94 92 94 Oximetry 09/15/20 09/15/20 09/15/20 12:15 12:30 12:45 Temperature 99 F 99.8 F H Pulse Rate 73 74 79 Pulse Rate [ From Monitor] Respiratory 20 17 20 Rate Blood Pressure 114/45 120/47 104/49 O2 Sat by Pulse 93 95 94 Oximetry 09/15/20 09/15/20 09/15/20 13:01 13:15 13:30 Temperature 99.8 F H Pulse Rate 81 110 H 78 Pulse Rate [ From Monitor] Respiratory 19 21 19 Rate Blood Pressure 118/40 118/40 137/46 O2 Sat by Pulse 96 95 95 Oximetry 09/15/20 09/15/20 09/15/20 13:45 14:01 14:15 Temperature 99.9 F H 99.8 F H Pulse Rate 86 92 H 95 H Pulse Rate [ From Monitor] Respiratory 21 20 22 Rate Blood Pressure 125/55 137/50 145/58 O2 Sat by Pulse 96 96 95 Oximetry 09/15/20 14:29 Temperature 99.8 F H Pulse Rate 94 H Pulse Rate [ From Monitor] Respiratory 22 Rate Blood Pressure 145/58 O2 Sat by Pulse 95 Oximetry Constitutional: appears uncomfortable, other (elderly obese male without increased respiratory effort at rest on MVS) Eyes: non-icteric ENT: oropharynx moist, other (ETT 24 cm MONICA) Neck: supple, no lymphadenopathy, no JVD Effort: normal Ascultation: Bilateral: diminished breath sounds, rhonchi Percussion: Bilateral: not dull Cardiovascular: regular rate and rhythm Gastrointestinal: normoactive bowel sounds, soft, non-tender, non-distended (protuberant) Integumentary: normal (in areas i examined; please see [facility] notes for full description) Extremities: no cyanosis, pink and warm, pulses normal, no ischemia or petechiae, other (left foot diabetic ulcer) Neurologic: non-focal exam (grossly), pupils equal and round, other (lethargic) Psychiatric: other (unable to assess) CBC and BMP: 09/15/20 05:26 09/15/20 05:26 ABG, PT/INR, D-dimer: ABG ABG pH 7.439 (7.320-7.450) 09/15/20 10:46 POC ABG pCO2 35.8 mmHg (32.0-48.0) 09/15/20 10:46 ABG pCO2 48.6 mm Hg 09/12/20 03:40 POC ABG pO2 56.8 mmHg (83-108) L 09/15/20 10:46 ABG pO2 77.1 mm Hg (80.0-90.0) L 09/12/20 03:40 POC ABG HCO3 23.7 09/15/20 10:46 ABG O2 Saturation 97.2 % (95.0-99.0) 09/12/20 03:40 PT/INR, D-dimer PT 15.9 Sec. (12.2-14.9) H 09/14/20 16:52 INR 1.27 (0.87-1.13) H 09/14/20 16:52 D-Dimer 1449.12 ng/mlDDU (0-234) H 09/08/20 19:15 Abnormal lab findings: Abnormal Labs 08/15/20 08/15/20 08/15/20 08:49 10:40 10:40 WBC RBC 2.96 L Hgb 9.0 L Hct 25.8 L MCV MCH MCHC 35 H RDW 16.2 H Plt Count Lymph % (Auto) [place] % (Auto) Eos % (Auto) Lymph # (Auto) Seg Neutrophils % Seg Neutrophils # PT INR APTT D-Dimer Heparin Anti-Xa Level ABG pH POC ABG pCO2 POC ABG pO2 ABG pO2 ABG HCO3 ABG O2 Saturation ABG Base Excess ABG Hemoglobin ABG Oxyhemoglobin ABG Sodium ABG Potassium ABG Chloride ABG Glucose Carboxyhemoglobin Sodium Potassium Chloride Carbon Dioxide BUN Creatinine 0.7 L Glucose 188 H POC Glucose 212 H Calcium 8.3 L Magnesium Ferritin AST Alkaline Phosphatase Lactate Dehydrogenase C-Reactive Protein Total Protein Albumin Arterial Blood Glucose Arterial Blood Ionized Calcium Urine WBC (Auto) Coronavirus (PCR) Crossmatch 08/15/20 08/15/20 08/16/20 14:00 Unknown 04:43 WBC RBC 3.28 L Hgb 9.6 L Hct 29.3 L MCV MCH MCHC RDW 16.6 H Plt Count Lymph % (Auto) [place] % (Auto) Eos % (Auto) 4.9 H Lymph # (Auto) Seg Neutrophils % Seg Neutrophils # PT INR APTT D-Dimer Heparin Anti-Xa Level ABG pH POC ABG pCO2 POC ABG pO2 ABG pO2 ABG HCO3 ABG O2 Saturation ABG Base Excess ABG Hemoglobin ABG Oxyhemoglobin ABG Sodium ABG Potassium ABG Chloride ABG Glucose Carboxyhemoglobin Sodium Potassium Chloride Carbon Dioxide BUN 8 L Creatinine 0.6 L Glucose 115 H POC Glucose Calcium Magnesium Ferritin AST Alkaline Phosphatase Lactate Dehydrogenase C-Reactive Protein Total Protein Albumin Arterial Blood Glucose Arterial Blood Ionized Calcium Urine WBC (Auto) 31.0 H Coronavirus (PCR) Crossmatch 08/16/20 08/18/20 08/20/20 04:43 15:17 07:12 WBC RBC Hgb 9.1 L Hct 27.2 L MCV MCH MCHC RDW Plt Count Lymph % (Auto) [place] % (Auto) Eos % (Auto) Lymph # (Auto) Seg Neutrophils % Seg Neutrophils # PT INR APTT D-Dimer Heparin Anti-Xa Level ABG pH POC ABG pCO2 POC ABG pO2 ABG pO2 ABG HCO3 ABG O2 Saturation ABG Base Excess ABG Hemoglobin ABG Oxyhemoglobin ABG Sodium ABG Potassium ABG Chloride ABG Glucose Carboxyhemoglobin Sodium 135 L Potassium Chloride 97.5 L Carbon Dioxide BUN Creatinine 0.5 L Glucose 153 H 135 H POC Glucose Calcium Magnesium Ferritin AST Alkaline Phosphatase Lactate Dehydrogenase C-Reactive Protein Total Protein Albumin Arterial Blood Glucose Arterial Blood Ionized Calcium Urine WBC (Auto) Coronavirus (PCR) Crossmatch 08/20/20 08/20/20 08/20/20 07:12 07:12 08:07 WBC RBC Hgb Hct MCV MCH MCHC RDW Plt Count Lymph % (Auto) [place] % (Auto) Eos % (Auto) Lymph # (Auto) Seg Neutrophils % Seg Neutrophils # PT INR 1.15 H APTT D-Dimer Heparin Anti-Xa Level ABG pH POC ABG pCO2 POC ABG pO2 ABG pO2 ABG HCO3 ABG O2 Saturation ABG Base Excess ABG Hemoglobin ABG Oxyhemoglobin ABG Sodium ABG Potassium ABG Chloride ABG Glucose Carboxyhemoglobin Sodium Potassium Chloride Carbon Dioxide BUN Creatinine Glucose 113 H POC Glucose 108 H Calcium Magnesium Ferritin AST Alkaline Phosphatase Lactate Dehydrogenase C-Reactive Protein Total Protein Albumin Arterial Blood Glucose Arterial Blood Ionized Calcium Urine WBC (Auto) Coronavirus (PCR) Crossmatch 08/20/20 08/20/20 08/21/20 16:32 22:34 07:42 WBC RBC Hgb Hct MCV MCH MCHC RDW Plt Count Lymph % (Auto) [place] % (Auto) Eos % (Auto) Lymph # (Auto) Seg Neutrophils % Seg Neutrophils # PT INR APTT D-Dimer Heparin Anti-Xa Level ABG pH POC ABG pCO2 POC ABG pO2 ABG pO2 ABG HCO3 ABG O2 Saturation ABG Base Excess ABG Hemoglobin ABG Oxyhemoglobin ABG Sodium ABG Potassium ABG Chloride ABG Glucose Carboxyhemoglobin Sodium Potassium Chloride Carbon Dioxide BUN Creatinine Glucose POC Glucose 107 H 139 H 115 H Calcium Magnesium Ferritin AST Alkaline Phosphatase Lactate Dehydrogenase C-Reactive Protein Total Protein Albumin Arterial Blood Glucose Arterial Blood Ionized Calcium Urine WBC (Auto) Coronavirus (PCR) Crossmatch 08/21/20 08/21/20 08/21/20 08:14 08:14 11:31 WBC RBC 3.08 L Hgb 8.9 L Hct 27.0 L MCV MCH MCHC RDW 16.7 H Plt Count Lymph % (Auto) [place] % (Auto) Eos % (Auto) Lymph # (Auto) Seg Neutrophils % Seg Neutrophils # PT INR APTT D-Dimer Heparin Anti-Xa Level ABG pH POC ABG pCO2 POC ABG pO2 ABG pO2 ABG HCO3 ABG O2 Saturation ABG Base Excess ABG Hemoglobin ABG Oxyhemoglobin ABG Sodium ABG Potassium ABG Chloride ABG Glucose Carboxyhemoglobin Sodium 136 L Potassium Chloride Carbon Dioxide BUN Creatinine Glucose 129 H POC Glucose 132 H Calcium Magnesium Ferritin AST Alkaline Phosphatase Lactate Dehydrogenase C-Reactive Protein Total Protein Albumin Arterial Blood Glucose Arterial Blood Ionized Calcium Urine WBC (Auto) Coronavirus (PCR) Crossmatch 08/24/20 08/25/20 08/26/20 10:57 18:39 11:57 WBC RBC Hgb Hct MCV MCH MCHC RDW Plt Count Lymph % (Auto) [place] % (Auto) Eos % (Auto) Lymph # (Auto) Seg Neutrophils % Seg Neutrophils # PT INR APTT D-Dimer Heparin Anti-Xa Level ABG pH POC ABG pCO2 POC ABG pO2 ABG pO2 ABG HCO3 ABG O2 Saturation ABG Base Excess ABG Hemoglobin ABG Oxyhemoglobin ABG Sodium ABG Potassium ABG Chloride ABG Glucose Carboxyhemoglobin Sodium Potassium Chloride Carbon Dioxide BUN Creatinine Glucose POC Glucose 126 H 120 H 127 H Calcium Magnesium Ferritin AST Alkaline Phosphatase Lactate Dehydrogenase C-Reactive Protein Total Protein Albumin Arterial Blood Glucose Arterial Blood Ionized Calcium Urine WBC (Auto) Coronavirus (PCR) Crossmatch 08/26/20 08/26/20 08/28/20 18:44 23:31 19:34 WBC RBC 3.09 L Hgb 8.7 L Hct 25.5 L MCV 82 L MCH MCHC RDW 17.1 H Plt Count Lymph % (Auto) [place] % (Auto) 9.1 H Eos % (Auto) Lymph # (Auto) 0.8 L Seg Neutrophils % 71.7 H Seg Neutrophils # PT INR APTT D-Dimer Heparin Anti-Xa Level ABG pH POC ABG pCO2 POC ABG pO2 ABG pO2 ABG HCO3 ABG O2 Saturation ABG Base Excess ABG Hemoglobin ABG Oxyhemoglobin ABG Sodium ABG Potassium ABG Chloride ABG Glucose Carboxyhemoglobin Sodium Potassium Chloride Carbon Dioxide BUN Creatinine Glucose POC Glucose 125 H 115 H Calcium Magnesium Ferritin AST Alkaline Phosphatase Lactate Dehydrogenase C-Reactive Protein Total Protein Albumin Arterial Blood Glucose Arterial Blood Ionized Calcium Urine WBC (Auto) Coronavirus (PCR) Crossmatch 08/28/20 08/28/20 08/29/20 19:34 22:16 08:06 WBC RBC Hgb Hct MCV MCH MCHC RDW Plt Count Lymph % (Auto) [place] % (Auto) Eos % (Auto) Lymph # (Auto) Seg Neutrophils % Seg Neutrophils # PT INR APTT D-Dimer Heparin Anti-Xa Level ABG pH POC ABG pCO2 POC ABG pO2 ABG pO2 ABG HCO3 ABG O2 Saturation ABG Base Excess ABG Hemoglobin ABG Oxyhemoglobin ABG Sodium ABG Potassium ABG Chloride ABG Glucose Carboxyhemoglobin Sodium 130 L Potassium 2.6 L* Chloride 96.4 L Carbon Dioxide BUN Creatinine Glucose 119 H POC Glucose 110 H 119 H Calcium 7.8 L Magnesium Ferritin AST Alkaline Phosphatase Lactate Dehydrogenase C-Reactive Protein Total Protein Albumin Arterial Blood Glucose Arterial Blood Ionized Calcium Urine WBC (Auto) Coronavirus (PCR) Crossmatch 08/29/20 08/29/20 08/29/20 12:13 16:37 17:38 WBC RBC Hgb Hct MCV MCH MCHC RDW Plt Count Lymph % (Auto) [place] % (Auto) Eos % (Auto) Lymph # (Auto) Seg Neutrophils % Seg Neutrophils # PT INR APTT D-Dimer Heparin Anti-Xa Level ABG pH POC ABG pCO2 POC ABG pO2 ABG pO2 ABG HCO3 ABG O2 Saturation ABG Base Excess ABG Hemoglobin ABG Oxyhemoglobin ABG Sodium ABG Potassium ABG Chloride ABG Glucose Carboxyhemoglobin Sodium 133 L Potassium 3.0 L Chloride 97.9 L Carbon Dioxide 21 L BUN Creatinine Glucose 111 H POC Glucose 109 H 106 H Calcium 8.3 L Magnesium 1.30 L Ferritin AST Alkaline Phosphatase Lactate Dehydrogenase C-Reactive Protein Total Protein Albumin Arterial Blood Glucose Arterial Blood Ionized Calcium Urine WBC (Auto) Coronavirus (PCR) Crossmatch 08/29/20 08/29/20 08/29/20 19:21 19:21 19:21 WBC RBC Hgb Hct MCV MCH MCHC RDW Plt Count Lymph % (Auto) [place] % (Auto) Eos % (Auto) Lymph # (Auto) Seg Neutrophils % Seg Neutrophils # PT INR APTT D-Dimer 688.12 H Heparin Anti-Xa Level ABG pH POC ABG pCO2 POC ABG pO2 ABG pO2 ABG HCO3 ABG O2 Saturation ABG Base Excess ABG Hemoglobin ABG Oxyhemoglobin ABG Sodium ABG Potassium ABG Chloride ABG Glucose Carboxyhemoglobin Sodium Potassium 3.1 L Chloride Carbon Dioxide BUN Creatinine Glucose POC Glucose Calcium Magnesium 1.50 L Ferritin 1476.0 H AST Alkaline Phosphatase Lactate Dehydrogenase C-Reactive Protein Total Protein Albumin Arterial Blood Glucose Arterial Blood Ionized Calcium Urine WBC (Auto) Coronavirus (PCR) Crossmatch 08/29/20 08/29/20 08/31/20 19:21 Unknown 04:30 WBC RBC 3.12 L Hgb 9.1 L Hct 25.7 L MCV 83 L MCH MCHC 35 H RDW 17.4 H Plt Count Lymph % (Auto) [place] % (Auto) 9.4 H Eos % (Auto) Lymph # (Auto) Seg Neutrophils % Seg Neutrophils # PT INR APTT D-Dimer Heparin Anti-Xa Level ABG pH POC ABG pCO2 POC ABG pO2 ABG pO2 ABG HCO3 ABG O2 Saturation ABG Base Excess ABG Hemoglobin ABG Oxyhemoglobin ABG Sodium ABG Potassium ABG Chloride ABG Glucose Carboxyhemoglobin Sodium Potassium Chloride Carbon Dioxide BUN Creatinine Glucose POC Glucose Calcium Magnesium Ferritin AST Alkaline Phosphatase Lactate Dehydrogenase 373 H C-Reactive Protein 18.30 H Total Protein Albumin Arterial Blood Glucose Arterial Blood Ionized Calcium Urine WBC (Auto) Coronavirus (PCR) Positive A Crossmatch 08/31/20 09/02/20 09/02/20 04:30 06:28 06:49 WBC RBC Hgb Hct MCV MCH MCHC RDW Plt Count Lymph % (Auto) [place] % (Auto) Eos % (Auto) Lymph # (Auto) Seg Neutrophils % Seg Neutrophils # PT INR APTT D-Dimer Heparin Anti-Xa Level ABG pH POC ABG pCO2 26.2 L POC ABG pO2 82.2 L ABG pO2 ABG HCO3 ABG O2 Saturation ABG Base Excess ABG Hemoglobin 10.1 L ABG Oxyhemoglobin ABG Sodium 134.5 L ABG Potassium 3.2 L ABG Chloride ABG Glucose 127 H Carboxyhemoglobin 0.3 L Sodium 134 L Potassium 3.4 L Chloride Carbon Dioxide BUN Creatinine Glucose 129 H POC Glucose 109 H Calcium 8.0 L Magnesium Ferritin AST Alkaline Phosphatase Lactate Dehydrogenase C-Reactive Protein Total Protein Albumin Arterial Blood Glucose 127 H Arterial Blood Ionized Calcium 4.5 L Urine WBC (Auto) Coronavirus (PCR) Crossmatch 09/02/20 09/02/20 09/02/20 11:32 15:55 15:55 WBC RBC Hgb Hct MCV MCH MCHC RDW Plt Count Lymph % (Auto) [place] % (Auto) Eos % (Auto) Lymph # (Auto) Seg Neutrophils % Seg Neutrophils # PT 15.5 H INR 1.23 H APTT 50.2 H D-Dimer 2186.40 H Heparin Anti-Xa Level ABG pH POC ABG pCO2 POC ABG pO2 ABG pO2 ABG HCO3 ABG O2 Saturation ABG Base Excess ABG Hemoglobin ABG Oxyhemoglobin ABG Sodium ABG Potassium ABG Chloride ABG Glucose Carboxyhemoglobin Sodium Potassium Chloride Carbon Dioxide 21 L BUN 30 H Creatinine 1.6 H Glucose 125 H POC Glucose 112 H Calcium 7.8 L Magnesium Ferritin AST Alkaline Phosphatase Lactate Dehydrogenase C-Reactive Protein Total Protein Albumin Arterial Blood Glucose Arterial Blood Ionized Calcium Urine WBC (Auto) Coronavirus (PCR) Crossmatch 09/02/20 09/02/20 09/02/20 15:55 15:55 17:34 WBC 11.2 H RBC 2.94 L Hgb 8.1 L Hct 24.3 L MCV 83 L MCH 27 L MCHC RDW 17.7 H Plt Count Lymph % (Auto) 12.7 L [place] % (Auto) Eos % (Auto) Lymph # (Auto) Seg Neutrophils % 82.5 H Seg Neutrophils # 9.3 H PT INR APTT D-Dimer Heparin Anti-Xa Level ABG pH POC ABG pCO2 POC ABG pO2 ABG pO2 ABG HCO3 ABG O2 Saturation ABG Base Excess ABG Hemoglobin ABG Oxyhemoglobin ABG Sodium ABG Potassium ABG Chloride ABG Glucose Carboxyhemoglobin Sodium Potassium Chloride Carbon Dioxide BUN Creatinine Glucose POC Glucose 127 H Calcium Magnesium Ferritin 1892.0 H AST Alkaline Phosphatase Lactate Dehydrogenase C-Reactive Protein Total Protein Albumin Arterial Blood Glucose Arterial Blood Ionized Calcium Urine WBC (Auto) Coronavirus (PCR) Crossmatch 09/03/20 09/03/20 09/03/20 07:13 16:40 23:40 WBC RBC Hgb Hct MCV MCH MCHC RDW Plt Count Lymph % (Auto) [place] % (Auto) Eos % (Auto) Lymph # (Auto) Seg Neutrophils % Seg Neutrophils # PT INR APTT D-Dimer Heparin Anti-Xa Level 0.88 H ABG pH POC ABG pCO2 POC ABG pO2 ABG pO2 ABG HCO3 ABG O2 Saturation ABG Base Excess ABG Hemoglobin ABG Oxyhemoglobin ABG Sodium ABG Potassium ABG Chloride ABG Glucose Carboxyhemoglobin Sodium Potassium 3.2 L Chloride 109.7 H Carbon Dioxide BUN 24 H Creatinine Glucose 142 H POC Glucose 220 H Calcium 8.2 L Magnesium Ferritin AST 75 H Alkaline Phosphatase Lactate Dehydrogenase C-Reactive Protein Total Protein 5.8 L Albumin 2.7 L Arterial Blood Glucose Arterial Blood Ionized Calcium Urine WBC (Auto) Coronavirus (PCR) Crossmatch 09/04/20 09/04/20 09/04/20 07:25 07:25 11:57 WBC RBC Hgb 9.0 L Hct 27.9 L MCV MCH MCHC RDW Plt Count Lymph % (Auto) [place] % (Auto) Eos % (Auto) Lymph # (Auto) Seg Neutrophils % Seg Neutrophils # PT INR APTT D-Dimer Heparin Anti-Xa Level ABG pH POC ABG pCO2 POC ABG pO2 ABG pO2 ABG HCO3 ABG O2 Saturation ABG Base Excess ABG Hemoglobin ABG Oxyhemoglobin ABG Sodium ABG Potassium ABG Chloride ABG Glucose Carboxyhemoglobin Sodium 148 H Potassium Chloride 116.9 H Carbon Dioxide BUN Creatinine Glucose 129 H POC Glucose 113 H Calcium Magnesium Ferritin AST 93 H Alkaline Phosphatase 134 H Lactate Dehydrogenase C-Reactive Protein Total Protein 6.0 L Albumin 2.6 L Arterial Blood Glucose Arterial Blood Ionized Calcium Urine WBC (Auto) Coronavirus (PCR) Crossmatch 09/05/20 09/05/20 09/05/20 06:24 07:17 13:38 WBC RBC Hgb Hct MCV MCH MCHC RDW Plt Count Lymph % (Auto) [place] % (Auto) Eos % (Auto) Lymph # (Auto) Seg Neutrophils % Seg Neutrophils # PT INR APTT D-Dimer Heparin Anti-Xa Level ABG pH 7.218 L POC ABG pCO2 66.0 H POC ABG pO2 45.8 L 79.1 L ABG pO2 ABG HCO3 ABG O2 Saturation ABG Base Excess ABG Hemoglobin 10.7 L 9.6 L ABG Oxyhemoglobin 74.5 L ABG Sodium 146.5 H 145.4 H ABG Potassium ABG Chloride 115.0 H 117.0 H ABG Glucose 146 H 106 H Carboxyhemoglobin 0.1 L 0 L Sodium 152 H Potassium Chloride 115.9 H Carbon Dioxide BUN Creatinine Glucose 134 H POC Glucose Calcium Magnesium Ferritin AST 69 H Alkaline Phosphatase 168 H Lactate Dehydrogenase C-Reactive Protein Total Protein 5.4 L Albumin 2.7 L Arterial Blood Glucose 146 H 106 H Arterial Blood Ionized Calcium Urine WBC (Auto) Coronavirus (PCR) Crossmatch 09/05/20 09/06/20 09/06/20 17:27 04:15 07:29 WBC RBC Hgb 7.8 L Hct 24.0 L MCV MCH MCHC RDW Plt Count Lymph % (Auto) [place] % (Auto) Eos % (Auto) Lymph # (Auto) Seg Neutrophils % Seg Neutrophils # PT INR APTT D-Dimer Heparin Anti-Xa Level ABG pH POC ABG pCO2 POC ABG pO2 ABG pO2 184.9 H ABG HCO3 19.9 L ABG O2 Saturation 99.2 H ABG Base Excess -3.5 L ABG Hemoglobin 8.9 L ABG Oxyhemoglobin ABG Sodium ABG Potassium ABG Chloride ABG Glucose Carboxyhemoglobin Sodium Potassium Chloride Carbon Dioxide BUN Creatinine Glucose POC Glucose 124 H Calcium Magnesium Ferritin AST Alkaline Phosphatase Lactate Dehydrogenase C-Reactive Protein Total Protein Albumin Arterial Blood Glucose Arterial Blood Ionized Calcium Urine WBC (Auto) Coronavirus (PCR) Crossmatch 09/06/20 09/06/20 09/06/20 07:29 07:29 12:02 WBC 11.3 H RBC 2.83 L Hgb 7.8 L Hct 24.3 L MCV MCH MCHC RDW 17.7 H Plt Count Lymph % (Auto) [place] % (Auto) Eos % (Auto) Lymph # (Auto) Seg Neutrophils % Seg Neutrophils # PT INR APTT D-Dimer Heparin Anti-Xa Level ABG pH POC ABG pCO2 POC ABG pO2 ABG pO2 ABG HCO3 ABG O2 Saturation ABG Base Excess ABG Hemoglobin ABG Oxyhemoglobin ABG Sodium ABG Potassium ABG Chloride ABG Glucose Carboxyhemoglobin Sodium 151 H Potassium Chloride 117.6 H Carbon Dioxide BUN 24 H Creatinine Glucose 159 H POC Glucose 158 H Calcium 7.7 L Magnesium Ferritin AST Alkaline Phosphatase Lactate Dehydrogenase C-Reactive Protein Total Protein Albumin Arterial Blood Glucose Arterial Blood Ionized Calcium Urine WBC (Auto) Coronavirus (PCR) Crossmatch 09/07/20 09/08/20 09/08/20 05:21 04:31 04:35 WBC RBC Hgb 7.4 L Hct 22.7 L MCV MCH MCHC RDW Plt Count Lymph % (Auto) [place] % (Auto) Eos % (Auto) Lymph # (Auto) Seg Neutrophils % Seg Neutrophils # PT INR APTT D-Dimer Heparin Anti-Xa Level ABG pH POC ABG pCO2 49.1 H POC ABG pO2 46.0 L 58.6 L ABG pO2 ABG HCO3 ABG O2 Saturation ABG Base Excess ABG Hemoglobin 8.6 L 7.8 L ABG Oxyhemoglobin 87.7 L ABG Sodium 145.1 H ABG Potassium ABG Chloride 116.0 H 116.0 H ABG Glucose 238 H 255 H Carboxyhemoglobin Sodium Potassium Chloride Carbon Dioxide BUN Creatinine Glucose POC Glucose Calcium Magnesium Ferritin AST Alkaline Phosphatase Lactate Dehydrogenase C-Reactive Protein Total Protein Albumin Arterial Blood Glucose 238 H 255 H Arterial Blood Ionized Calcium Urine WBC (Auto) Coronavirus (PCR) Crossmatch 09/08/20 09/08/20 09/08/20 12:45 17:26 19:15 WBC RBC Hgb Hct MCV MCH MCHC RDW Plt Count Lymph % (Auto) [place] % (Auto) Eos % (Auto) Lymph # (Auto) Seg Neutrophils % Seg Neutrophils # PT INR APTT D-Dimer Heparin Anti-Xa Level ABG pH POC ABG pCO2 POC ABG pO2 ABG pO2 ABG HCO3 ABG O2 Saturation ABG Base Excess ABG Hemoglobin ABG Oxyhemoglobin ABG Sodium ABG Potassium ABG Chloride ABG Glucose Carboxyhemoglobin Sodium Potassium Chloride Carbon Dioxide BUN Creatinine Glucose POC Glucose 270 H 294 H Calcium Magnesium Ferritin AST Alkaline Phosphatase Lactate Dehydrogenase C-Reactive Protein 4.90 H Total Protein Albumin Arterial Blood Glucose Arterial Blood Ionized Calcium Urine WBC (Auto) Coronavirus (PCR) Crossmatch 09/08/20 09/08/20 09/08/20 19:15 19:15 19:15 WBC RBC Hgb Hct MCV MCH MCHC RDW Plt Count Lymph % (Auto) [place] % (Auto) Eos % (Auto) Lymph # (Auto) Seg Neutrophils % Seg Neutrophils # PT INR APTT D-Dimer 1449.12 H Heparin Anti-Xa Level ABG pH POC ABG pCO2 POC ABG pO2 ABG pO2 ABG HCO3 ABG O2 Saturation ABG Base Excess ABG Hemoglobin ABG Oxyhemoglobin ABG Sodium ABG Potassium ABG Chloride ABG Glucose Carboxyhemoglobin Sodium Potassium Chloride Carbon Dioxide BUN Creatinine Glucose POC Glucose Calcium Magnesium Ferritin 1485.0 H AST Alkaline Phosphatase Lactate Dehydrogenase 541 H C-Reactive Protein Total Protein Albumin Arterial Blood Glucose Arterial Blood Ionized Calcium Urine WBC (Auto) Coronavirus (PCR) Crossmatch 09/09/20 09/09/20 09/09/20 04:40 12:15 17:36 WBC RBC Hgb Hct MCV MCH MCHC RDW Plt Count Lymph % (Auto) [place] % (Auto) Eos % (Auto) Lymph # (Auto) Seg Neutrophils % Seg Neutrophils # PT INR APTT D-Dimer Heparin Anti-Xa Level ABG pH POC ABG pCO2 POC ABG pO2 75.1 L ABG pO2 ABG HCO3 ABG O2 Saturation ABG Base Excess ABG Hemoglobin 10.7 L ABG Oxyhemoglobin 93.9 L ABG Sodium 146.7 H ABG Potassium ABG Chloride 113.0 H ABG Glucose 420 H Carboxyhemoglobin 0.2 L Sodium Potassium Chloride Carbon Dioxide BUN Creatinine Glucose POC Glucose 281 H 368 H Calcium Magnesium Ferritin AST Alkaline Phosphatase Lactate Dehydrogenase C-Reactive Protein Total Protein Albumin Arterial Blood Glucose 420 H Arterial Blood Ionized Calcium Urine WBC (Auto) Coronavirus (PCR) Crossmatch 09/10/20 09/10/20 09/10/20 04:45 07:15 11:51 WBC RBC Hgb 7.7 L Hct 24.8 L MCV MCH MCHC RDW Plt Count Lymph % (Auto) [place] % (Auto) Eos % (Auto) Lymph # (Auto) Seg Neutrophils % Seg Neutrophils # PT INR APTT D-Dimer Heparin Anti-Xa Level ABG pH POC ABG pCO2 POC ABG pO2 ABG pO2 ABG HCO3 ABG O2 Saturation ABG Base Excess ABG Hemoglobin 8.0 L ABG Oxyhemoglobin ABG Sodium 150.8 H ABG Potassium ABG Chloride 117.0 H ABG Glucose 461 H Carboxyhemoglobin Sodium Potassium Chloride Carbon Dioxide BUN Creatinine Glucose POC Glucose 358 H Calcium Magnesium Ferritin AST Alkaline Phosphatase Lactate Dehydrogenase C-Reactive Protein Total Protein Albumin Arterial Blood Glucose 461 H Arterial Blood Ionized Calcium Urine WBC (Auto) Coronavirus (PCR) Crossmatch 09/10/20 09/10/20 09/11/20 17:28 23:29 04:55 WBC RBC Hgb Hct MCV MCH MCHC RDW Plt Count Lymph % (Auto) [place] % (Auto) Eos % (Auto) Lymph # (Auto) Seg Neutrophils % Seg Neutrophils # PT INR APTT D-Dimer Heparin Anti-Xa Level ABG pH POC ABG pCO2 49.3 H POC ABG pO2 78.2 L ABG pO2 ABG HCO3 ABG O2 Saturation ABG Base Excess ABG Hemoglobin 8.2 L ABG Oxyhemoglobin ABG Sodium 155.0 H ABG Potassium ABG Chloride 120.0 H ABG Glucose 515 H Carboxyhemoglobin Sodium Potassium Chloride Carbon Dioxide BUN Creatinine Glucose POC Glucose 434 H 384 H Calcium Magnesium Ferritin AST Alkaline Phosphatase Lactate Dehydrogenase C-Reactive Protein Total Protein Albumin Arterial Blood Glucose 515 H Arterial Blood Ionized Calcium Urine WBC (Auto) Coronavirus (PCR) Crossmatch 09/11/20 09/11/20 09/11/20 05:03 06:10 06:10 WBC 11.1 H RBC 2.55 L Hgb 7.1 L Hct 23.4 L MCV MCH MCHC 30 L RDW 19.6 H Plt Count Lymph % (Auto) [place] % (Auto) Eos % (Auto) Lymph # (Auto) Seg Neutrophils % Seg Neutrophils # PT INR APTT D-Dimer Heparin Anti-Xa Level ABG pH POC ABG pCO2 POC ABG pO2 ABG pO2 ABG HCO3 ABG O2 Saturation ABG Base Excess ABG Hemoglobin ABG Oxyhemoglobin ABG Sodium ABG Potassium ABG Chloride ABG Glucose Carboxyhemoglobin Sodium 159 H D Potassium Chloride 121.9 H Carbon Dioxide BUN 59 H Creatinine Glucose 530 H* POC Glucose 306 H Calcium 8.2 L Magnesium Ferritin AST Alkaline Phosphatase Lactate Dehydrogenase C-Reactive Protein Total Protein Albumin Arterial Blood Glucose Arterial Blood Ionized Calcium Urine WBC (Auto) Coronavirus (PCR) Crossmatch 09/11/20 09/11/20 09/11/20 08:12 12:13 17:04 WBC RBC Hgb Hct MCV MCH MCHC RDW Plt Count Lymph % (Auto) [place] % (Auto) Eos % (Auto) Lymph # (Auto) Seg Neutrophils % Seg Neutrophils # PT INR APTT D-Dimer Heparin Anti-Xa Level ABG pH POC ABG pCO2 POC ABG pO2 ABG pO2 ABG HCO3 ABG O2 Saturation ABG Base Excess ABG Hemoglobin ABG Oxyhemoglobin ABG Sodium ABG Potassium ABG Chloride ABG Glucose Carboxyhemoglobin Sodium Potassium Chloride Carbon Dioxide BUN Creatinine Glucose 526 H* POC Glucose 374 H 398 H Calcium Magnesium Ferritin AST Alkaline Phosphatase Lactate Dehydrogenase C-Reactive Protein Total Protein Albumin Arterial Blood Glucose Arterial Blood Ionized Calcium Urine WBC (Auto) Coronavirus (PCR) Crossmatch 09/11/20 09/12/20 09/12/20 23:39 03:40 05:42 WBC RBC Hgb Hct MCV MCH MCHC RDW Plt Count Lymph % (Auto) [place] % (Auto) Eos % (Auto) Lymph # (Auto) Seg Neutrophils % Seg Neutrophils # PT INR APTT D-Dimer Heparin Anti-Xa Level ABG pH POC ABG pCO2 POC ABG pO2 ABG pO2 77.1 L ABG HCO3 31.3 H ABG O2 Saturation ABG Base Excess 6.4 H ABG Hemoglobin 5.4 L ABG Oxyhemoglobin ABG Sodium ABG Potassium ABG Chloride ABG Glucose Carboxyhemoglobin Sodium Potassium Chloride Carbon Dioxide BUN Creatinine Glucose POC Glucose 355 H 286 H Calcium Magnesium Ferritin AST Alkaline Phosphatase Lactate Dehydrogenase C-Reactive Protein Total Protein Albumin Arterial Blood Glucose Arterial Blood Ionized Calcium Urine WBC (Auto) Coronavirus (PCR) Crossmatch 09/12/20 09/12/20 09/12/20 06:01 06:01 11:22 WBC RBC 2.36 L Hgb 6.6 L Hct 21.7 L MCV MCH MCHC 31 L RDW 19.9 H Plt Count Lymph % (Auto) 8.5 L [place] % (Auto) Eos % (Auto) Lymph # (Auto) 0.8 L Seg Neutrophils % 86.6 H Seg Neutrophils # 8.5 H PT INR APTT D-Dimer Heparin Anti-Xa Level ABG pH POC ABG pCO2 POC ABG pO2 ABG pO2 ABG HCO3 ABG O2 Saturation ABG Base Excess ABG Hemoglobin ABG Oxyhemoglobin ABG Sodium ABG Potassium ABG Chloride ABG Glucose Carboxyhemoglobin Sodium 153 H Potassium Chloride 117.7 H Carbon Dioxide 32 H BUN 46 H Creatinine 0.7 L Glucose 358 H POC Glucose 350 H Calcium 7.3 L Magnesium Ferritin AST Alkaline Phosphatase Lactate Dehydrogenase C-Reactive Protein Total Protein Albumin Arterial Blood Glucose Arterial Blood Ionized Calcium Urine WBC (Auto) Coronavirus (PCR) Crossmatch 09/12/20 09/12/20 09/12/20 13:30 16:47 17:40 WBC RBC Hgb Hct MCV MCH MCHC RDW Plt Count Lymph % (Auto) [place] % (Auto) Eos % (Auto) Lymph # (Auto) Seg Neutrophils % Seg Neutrophils # PT INR APTT D-Dimer Heparin Anti-Xa Level ABG pH POC ABG pCO2 POC ABG pO2 ABG pO2 ABG HCO3 ABG O2 Saturation ABG Base Excess ABG Hemoglobin ABG Oxyhemoglobin ABG Sodium ABG Potassium ABG Chloride ABG Glucose Carboxyhemoglobin Sodium Potassium Chloride Carbon Dioxide BUN Creatinine Glucose POC Glucose 389 H 402 H Calcium Magnesium Ferritin AST Alkaline Phosphatase Lactate Dehydrogenase C-Reactive Protein Total Protein Albumin Arterial Blood Glucose Arterial Blood Ionized Calcium Urine WBC (Auto) Coronavirus (PCR) Crossmatch See Detail 09/12/20 09/13/20 09/13/20 23:56 02:09 05:08 WBC RBC Hgb Hct MCV MCH MCHC RDW Plt Count Lymph % (Auto) [place] % (Auto) Eos % (Auto) Lymph # (Auto) Seg Neutrophils % Seg Neutrophils # PT INR APTT D-Dimer Heparin Anti-Xa Level ABG pH 7.471 H POC ABG pCO2 POC ABG pO2 75.2 L ABG pO2 ABG HCO3 ABG O2 Saturation ABG Base Excess ABG Hemoglobin 11.5 L ABG Oxyhemoglobin ABG Sodium 158.8 H ABG Potassium ABG Chloride 122.0 H ABG Glucose 387 H Carboxyhemoglobin Sodium Potassium Chloride Carbon Dioxide BUN Creatinine Glucose POC Glucose 337 H 256 H Calcium Magnesium Ferritin AST Alkaline Phosphatase Lactate Dehydrogenase C-Reactive Protein Total Protein Albumin Arterial Blood Glucose 387 H Arterial Blood Ionized Calcium Urine WBC (Auto) Coronavirus (PCR) Crossmatch 09/13/20 09/13/20 09/13/20 09:07 09:07 11:44 WBC 12.2 H RBC Hgb 10.9 L D Hct 33.7 L D MCV MCH MCHC RDW 18.5 H Plt Count Lymph % (Auto) 7.1 L [place] % (Auto) Eos % (Auto) Lymph # (Auto) 0.9 L Seg Neutrophils % 89.3 H Seg Neutrophils # 10.8 H PT INR APTT D-Dimer Heparin Anti-Xa Level ABG pH POC ABG pCO2 POC ABG pO2 ABG pO2 ABG HCO3 ABG O2 Saturation ABG Base Excess ABG Hemoglobin ABG Oxyhemoglobin ABG Sodium ABG Potassium ABG Chloride ABG Glucose Carboxyhemoglobin Sodium 160 H Potassium Chloride 121.1 H Carbon Dioxide 34 H BUN 51 H Creatinine Glucose 294 H POC Glucose 283 H Calcium Magnesium Ferritin AST Alkaline Phosphatase Lactate Dehydrogenase C-Reactive Protein Total Protein Albumin Arterial Blood Glucose Arterial Blood Ionized Calcium Urine WBC (Auto) Coronavirus (PCR) Crossmatch 09/13/20 09/13/20 09/14/20 16:45 23:35 04:58 WBC RBC Hgb Hct MCV MCH MCHC RDW Plt Count Lymph % (Auto) [place] % (Auto) Eos % (Auto) Lymph # (Auto) Seg Neutrophils % Seg Neutrophils # PT INR APTT D-Dimer Heparin Anti-Xa Level ABG pH POC ABG pCO2 POC ABG pO2 63.7 L ABG pO2 ABG HCO3 ABG O2 Saturation ABG Base Excess ABG Hemoglobin 10.2 L ABG Oxyhemoglobin ABG Sodium 149.6 H ABG Potassium ABG Chloride 116.0 H ABG Glucose 341 H Carboxyhemoglobin Sodium Potassium Chloride Carbon Dioxide BUN Creatinine Glucose POC Glucose 265 H 306 H Calcium Magnesium Ferritin AST Alkaline Phosphatase Lactate Dehydrogenase C-Reactive Protein Total Protein Albumin Arterial Blood Glucose 341 H Arterial Blood Ionized Calcium Urine WBC (Auto) Coronavirus (PCR) Crossmatch 09/14/20 09/14/20 09/14/20 05:18 06:25 06:25 WBC 11.2 H RBC 3.20 L Hgb 9.4 L Hct 29.9 L MCV MCH MCHC 31 L RDW 19.6 H Plt Count Lymph % (Auto) [place] % (Auto) Eos % (Auto) Lymph # (Auto) Seg Neutrophils % Seg Neutrophils # PT INR APTT D-Dimer Heparin Anti-Xa Level ABG pH POC ABG pCO2 POC ABG pO2 ABG pO2 ABG HCO3 ABG O2 Saturation ABG Base Excess ABG Hemoglobin ABG Oxyhemoglobin ABG Sodium ABG Potassium ABG Chloride ABG Glucose Carboxyhemoglobin Sodium 156 H Potassium Chloride 116.4 H Carbon Dioxide BUN 49 H Creatinine Glucose 337 H POC Glucose 272 H Calcium 8.0 L Magnesium Ferritin AST Alkaline Phosphatase Lactate Dehydrogenase C-Reactive Protein Total Protein Albumin Arterial Blood Glucose Arterial Blood Ionized Calcium Urine WBC (Auto) Coronavirus (PCR) Crossmatch 09/14/20 09/14/20 09/14/20 06:25 11:55 16:52 WBC RBC Hgb Hct MCV MCH MCHC RDW Plt Count Lymph % (Auto) [place] % (Auto) Eos % (Auto) Lymph # (Auto) Seg Neutrophils % Seg Neutrophils # PT 15.9 H INR 1.27 H APTT 68.0 H* D-Dimer Heparin Anti-Xa Level ABG pH POC ABG pCO2 POC ABG pO2 ABG pO2 ABG HCO3 ABG O2 Saturation ABG Base Excess ABG Hemoglobin ABG Oxyhemoglobin ABG Sodium ABG Potassium ABG Chloride ABG Glucose Carboxyhemoglobin Sodium Potassium Chloride Carbon Dioxide BUN Creatinine Glucose POC Glucose 321 H Calcium Magnesium 2.60 H Ferritin AST Alkaline Phosphatase Lactate Dehydrogenase C-Reactive Protein Total Protein Albumin Arterial Blood Glucose Arterial Blood Ionized Calcium Urine WBC (Auto) Coronavirus (PCR) Crossmatch 09/14/20 09/14/20 09/14/20 17:28 23:22 23:32 WBC RBC Hgb Hct MCV MCH MCHC RDW Plt Count Lymph % (Auto) [place] % (Auto) Eos % (Auto) Lymph # (Auto) Seg Neutrophils % Seg Neutrophils # PT INR APTT D-Dimer Heparin Anti-Xa Level 2.00 H ABG pH POC ABG pCO2 POC ABG pO2 ABG pO2 ABG HCO3 ABG O2 Saturation ABG Base Excess ABG Hemoglobin ABG Oxyhemoglobin ABG Sodium ABG Potassium ABG Chloride ABG Glucose Carboxyhemoglobin Sodium Potassium Chloride Carbon Dioxide BUN Creatinine Glucose POC Glucose 293 H 188 H Calcium Magnesium Ferritin AST Alkaline Phosphatase Lactate Dehydrogenase C-Reactive Protein Total Protein Albumin Arterial Blood Glucose Arterial Blood Ionized Calcium Urine WBC (Auto) Coronavirus (PCR) Crossmatch 09/14/20 09/15/20 09/15/20 Unknown 04:33 05:26 WBC 2.4 L RBC 2.12 L Hgb 7.9 L 6.5 L Hct 24.4 L 20.1 L MCV 95 H MCH MCHC RDW 20.7 H Plt Count 124 L 112 L Lymph % (Auto) [place] % (Auto) Eos % (Auto) Lymph # (Auto) Seg Neutrophils % Seg Neutrophils # PT INR APTT D-Dimer Heparin Anti-Xa Level ABG pH 7.475 H POC ABG pCO2 POC ABG pO2 44.0 L ABG pO2 ABG HCO3 ABG O2 Saturation ABG Base Excess ABG Hemoglobin 7.5 L ABG Oxyhemoglobin 79 L ABG Sodium 134.7 L ABG Potassium ABG Chloride ABG Glucose 259 H Carboxyhemoglobin 1.8 H Sodium Potassium Chloride Carbon Dioxide BUN Creatinine Glucose POC Glucose Calcium Magnesium Ferritin AST Alkaline Phosphatase Lactate Dehydrogenase C-Reactive Protein Total Protein Albumin Arterial Blood Glucose 259 H Arterial Blood Ionized Calcium 4.4 L Urine WBC (Auto) Coronavirus (PCR) Crossmatch 09/15/20 09/15/20 09/15/20 05:26 05:38 07:58 WBC RBC Hgb Hct MCV MCH MCHC RDW Plt Count Lymph % (Auto) [place] % (Auto) Eos % (Auto) Lymph # (Auto) Seg Neutrophils % Seg Neutrophils # PT INR APTT D-Dimer Heparin Anti-Xa Level ABG pH POC ABG pCO2 POC ABG pO2 ABG pO2 ABG HCO3 ABG O2 Saturation ABG Base Excess ABG Hemoglobin ABG Oxyhemoglobin ABG Sodium ABG Potassium ABG Chloride ABG Glucose Carboxyhemoglobin Sodium Potassium Chloride Carbon Dioxide BUN 39 H Creatinine Glucose 262 H POC Glucose 216 H 196 H Calcium 7.1 L Magnesium Ferritin AST Alkaline Phosphatase Lactate Dehydrogenase C-Reactive Protein Total Protein 4.7 L Albumin 2.0 L Arterial Blood Glucose Arterial Blood Ionized Calcium Urine WBC (Auto) Coronavirus (PCR) Crossmatch 09/15/20 09/15/20 10:46 12:20 WBC RBC Hgb Hct MCV MCH MCHC RDW Plt Count Lymph % (Auto) [place] % (Auto) Eos % (Auto) Lymph # (Auto) Seg Neutrophils % Seg Neutrophils # PT INR APTT D-Dimer Heparin Anti-Xa Level ABG pH POC ABG pCO2 POC ABG pO2 56.8 L ABG pO2 ABG HCO3 ABG O2 Saturation ABG Base Excess ABG Hemoglobin 8.9 L ABG Oxyhemoglobin 87.6 L ABG Sodium 131.0 L ABG Potassium ABG Chloride ABG Glucose 278 H Carboxyhemoglobin Sodium Potassium Chloride Carbon Dioxide BUN Creatinine Glucose POC Glucose 261 H Calcium Magnesium Ferritin AST Alkaline Phosphatase Lactate Dehydrogenase C-Reactive Protein Total Protein Albumin Arterial Blood Glucose 278 H Arterial Blood Ionized Calcium 4.4 L Urine WBC (Auto) Coronavirus (PCR) Crossmatch Chest x-ray: other (none today) Allied health notes reviewed: nursing
--- NOTE | 2020-09-15 16:09 | Consultation ---
History of Present Illness - Reason for Consult Consult date: 09/15/20 Anemia Requesting physician: ZE SHORT - History of Present Illness 64 yo WM, COVID positive, on whom I am consulted for evaluation of progressive anemia. Pt had Hgb 6.6 on 09/12, transfused to 10.9 on 09/13, and then 7.9 on 09/14, and 6.5 today. Pt has hx of CABG, PVD, gout, EtOH abuse, and was hospitalized from 07/17 - 08/06 for vascular disease with need for partial foot amputation. He was readmitted on 08/15 for bleeding from foot, and then found to be COVID positive on 08/29 during evaluation for transfer to [place]. He deteriorated and was intubated on 09/02/20, and has had A Fib and other problems. He was on a heparin drip, and is on Plavix. Pt has a rectal tube in place, and per RN, has dark brown liquid stool, and no alysia GI bleed. No hx of blood in NGT. Pt did have hematuria yesterday. History is obtained from chart. Meds reviewed. Past History Past Medical History: CAD, hypertension, hyperlipidemia, PVD, other (COVID-19) Past Surgical History: CABG, tonsillectomy, Other (Left transmetatarsal amputation, revascularization of left lower extremity, removal of cyst on right chest) Social history: single Family history: no significant family history Medications and Allergies Allergies Allergy/AdvReac Type Severity Reaction Status Date / Time Penicillins Allergy Hives Verified 07/16/20 22:49 Home Medications Medication Instructions Recorded Confirmed Last Taken Type AtorvaSTATin [Lipitor] 40 mg PO QHS 07/17/20 08/15/20 Unknown History Clopidogrel [Plavix] 75 mg PO QDAY 07/17/20 08/15/20 Unknown History Folic Acid [Folvite] 1 mg PO QDAY 07/17/20 08/15/20 Unknown History Metoprolol [Lopressor TAB] 50 mg PO BID 07/17/20 08/15/20 Unknown History Thiamine [Vitamin B-1] 100 mg PO QDAY 07/17/20 08/15/20 Unknown History Pantoprazole [Protonix TAB] 40 mg PO QDAC #30 tablet 08/06/20 08/15/20 Unknown Rx amLODIPine 10 mg PO QDAY #30 tablet 08/06/20 08/15/20 Unknown Rx cilostazoL [Pletal] 100 mg PO BID #60 tablet 08/06/20 08/15/20 Unknown Rx levoFLOXacin [Levaquin TAB] 750 mg PO DAILY #5 tablet 08/06/20 08/15/20 Unknown Rx oxyCODONE /ACETAMINOPHEN [Percocet 1 tab PO Q4H PRN #14 tablet 08/06/20 08/15/20 Unknown Rx 5/325 mg] Active Meds: Active Medications Acetaminophen (Acetaminophen 325 Mg Tab) 650 mg PO Q4H PRN PRN Reason: Pain MILD(1-3)/Fever >100.5/REYES Last Admin: 09/15/20 08:02 Dose: 650 mg Documented by: Albuterol (Albuterol 2.5 Mg/3 Ml Nebu) 2.5 mg IH Q4HRT PRN PRN Reason: Shortness Of Breath Last Admin: 08/20/20 12:53 Dose: 2.5 mg Documented by: Amlodipine Besylate (Amlodipine 10 Mg Tab) 10 mg PO QDAY [facility] Last Admin: 09/15/20 09:16 Dose: Not Given Documented by: Lipase/Protease/Amylase (Lipase 10,500/Protease 25,000/Amylase 43,750 (Units) Dr Lisa) 1 each FEEDTUBE PRN PRN PRN Reason: For Clogged Feeding Tube Ascorbic Acid (Ascorbic Acid 500 Mg Tab) 500 mg PO BID [facility] Last Admin: 09/15/20 09:19 Dose: 500 mg Documented by: Atorvastatin Calcium (Atorvastatin 40 Mg Tab) 40 mg PO QHS [facility] Last Admin: 09/14/20 21:54 Dose: 40 mg Documented by: Cilostazol (Cilostazol 100 Mg Tab) 100 mg PO BID [facility] Last Admin: 09/15/20 09:18 Dose: 100 mg Documented by: Clopidogrel Bisulfate (Clopidogrel 75 Mg Tab) 75 mg PO QDAY [facility] Last Admin: 09/15/20 09:18 Dose: 75 mg Documented by: Dextrose (Dextrose 50% In Water (25gm) 50 Ml Syringe) 50 ml IV Q30MIN PRN; Protocol PRN Reason: Hypoglycemia Fentanyl (Fentanyl 100 Mcg/2 Ml Inj) 50 mcg IV Q10MIN PRN PRN Reason: ANALGESIA Last Admin: 09/15/20 08:03 Dose: 50 mcg Documented by: Folic Acid (Folic Acid 1 Mg Tab) 1 mg PO QDAY [facility] Last Admin: 09/15/20 09:18 Dose: 1 mg Documented by: Hydrophilic Ointment (Lip Therapy Vaseline) 1 applic TP Q2HR PRN PRN Reason: Dry Lips Norepinephrine (Levophed Drip 4 Mg/Ns 250 Ml) 4 mg in 250 mls @ 7.5 mls/hr IV TITR [facility]; Protocol Last Titration: 09/15/20 15:22 Dose: 6 mcg/min, 22.5 mls/hr Documented by: Vasopressin 20 unit/ Sodium (Chloride) 101 mls @ 9.09 mls/hr IV TITR [facility]; Protocol Last Titration: 09/14/20 21:55 Dose: 0 units/min, 0 mls/hr Documented by: Fentanyl Citrate (Fentanyl Drip Premix) 2,000 mcg in 100 mls @ 4.465 mls/hr IV TITR [facility]; Protocol Last Titration: 09/11/20 19:07 Dose: 0 mcg/kg/hr, 0 mls/hr Documented by: Midazolam HCl 100 mg/ Sodium (Chloride) 100 mls @ 2 mls/hr IV TITR [facility]; Protocol Last Titration: 09/06/20 08:30 Dose: 0 mg/hr, 0 mls/hr Documented by: Dextrose (D5w) 1,000 mls @ 100 mls/hr IV DIRECT [facility] Stop: 09/17/20 05:59 Last Admin: 09/15/20 05:29 Dose: 100 mls/hr Documented by: Levofloxacin/Dextrose (Levaquin 750mg/150ml) 750 mg in 150 mls @ 100 mls/hr IV Q24H [facility]; Protocol Stop: 09/17/20 09:59 Last Admin: 09/15/20 09:23 Dose: 100 mls/hr Documented by: Amiodarone HCl 900 mg/ (Dextrose) 500 mls @ 33.333 mls/hr IV DIRECT [facility]; Protocol Last Infusion: 09/15/20 10:05 Dose: 1 mg/min, 33.333 mls/hr Documented by: Sodium Chloride (Nacl 0.9% 500 Ml) 500 mls @ 0 mls/hr IV ONCE NR Stop: 09/15/20 23:59 Last Admin: 09/15/20 11:16 Dose: 10 mls/hr Documented by: Insulin Glargine (Insulin Glargine 100 Units/Ml) 40 units SUB-Q BIDDIAB [facility] Last Admin: 09/15/20 09:16 Dose: 40 units Documented by: Insulin Human Lispro (Insulin Lispro 100 Unit/Ml Vial 3 Ml) 0 unit SUB-Q Q6H [facility]; Protocol Last Admin: 09/15/20 12:34 Dose: 6 unit Documented by: Lansoprazole (Lansoprazole 30 Mg Solutab) 30 mg FEEDTUBE QDAY [facility] Last Admin: 09/15/20 09:18 Dose: 30 mg Documented by: Loperamide HCl (Loperamide 2 Mg Cap) 2 mg PO PRN PRN PRN Reason: Diarrhea Last Admin: 08/28/20 12:51 Dose: 2 mg Documented by: Lorazepam (Lorazepam 2 Mg/Ml Vial) 1 mg IV Q4H PRN PRN Reason: Anxiety Last Admin: 09/14/20 04:13 Dose: 1 mg Documented by: Metoprolol Tartrate (Metoprolol Tartrate 50 Mg Tab) 50 mg PO BID [facility] Last Admin: 09/15/20 09:19 Dose: 50 mg Documented by: Midazolam HCl (Midazolam 2 Mg/2 Ml Inj) 2 mg IV Q10MIN PRN PRN Reason: Sedation Last Admin: 09/05/20 05:56 Dose: 2 mg Documented by: Multi-Ingred Cream/Lotion/Oil/Oint (Mineral Oil/Petrolatum, White Ophth Oint 3.5 Gm) 1 applic OU Q4HR PRN PRN Reason: Dry Eye(s) Ondansetron HCl (Ondansetron 4 Mg/2 Ml Inj) 4 mg IV Q8H PRN PRN Reason: Nausea And Vomiting Last Admin: 08/18/20 17:46 Dose: 4 mg Documented by: Simple Syrup (Simple Syrup 15 Ml) 15 ml FEEDTUBE PRN PRN PRN Reason: Hypoglycemia Simple Syrup (Simple Syrup 15 Ml) 30 ml FEEDTUBE PRN PRN PRN Reason: Hypoglycemia Sodium Bicarbonate (Sodium Bicarbonate 325 Mg Tab) 325 mg FEEDTUBE PRN PRN PRN Reason: For Clogged Feeding Tube Sodium Chloride (Sodium Chloride 0.9% 10 Ml Flush Syringe) 10 ml IV BID [facility] Last Admin: 09/15/20 09:23 Dose: 10 ml Documented by: Sodium Chloride (Sodium Chloride 0.9% 10 Ml Flush Syringe) 10 ml IV PRN PRN PRN Reason: LINE FLUSH Tamsulosin HCl (Tamsulosin 0.4 Mg Cap) 0.4 mg PO QHS [facility] Last Admin: 09/14/20 21:55 Dose: Not Given Documented by: Thiamine HCl (Thiamine 100 Mg Tab) 100 mg PO QDAY [facility] Last Admin: 09/15/20 09:19 Dose: 100 mg Documented by: Zinc Sulfate (Zinc Sulfate 220 Mg Cap) 220 mg PO BID [facility] Last Admin: 09/15/20 09:19 Dose: 220 mg Documented by: Exam - Physical Exam Narrative exam: Intubated and sedated in ICU. Not examined as no urgent need based on reasons for consult. Seen through glass. - Constitutional Vitals: Temp Pulse Resp BP Pulse Ox 99.8 F H 81 22 119/45 97 09/15/20 14:29 09/15/20 15:57 09/15/20 14:29 09/15/20 15:57 09/15/20 15:57 General appearance: Present: other (Intubated, sedated) Results - Labs CBC & Chem 7: 09/15/20 05:26 09/15/20 05:26 Labs: Abnormal lab results 09/12/20 09/14/20 09/14/20 Range/Units 13:30 16:52 17:28 WBC (4.5-11.0) K/mm3 RBC (3.65-5.03) M/mm3 Hgb (11.8-15.2) gm/dl Hct (35.5-45.6) % MCV (84-94) fl RDW (13.2-15.2) % Plt Count (140-440) K/mm3 PT 15.9 H (12.2-14.9) Sec. INR 1.27 H (0.87-1.13) APTT 68.0 H* (24.2-36.6) Sec. Heparin Anti-Xa Level (0.3-0.7) U.I./ml ABG pH (7.320-7.450) POC ABG pO2 (83-108) mmHg ABG Hemoglobin (12.0-17.5) ABG Oxyhemoglobin (94-98) ABG Sodium (136.0-145.0) mmol/L ABG Glucose (65-95) mg/dL Carboxyhemoglobin (0.5-1.5) BUN (9-20) mg/dL Glucose (75-100) mg/dL POC Glucose 293 H (70-105) mg/dL Calcium (8.4-10.2) mg/dL Total Protein (6.3-8.2) g/dL Albumin (3.9-5) g/dL Arterial Blood Glucose (65-95) mg/dL Arterial Blood Ionized Calcium (4.6-5.3) mg/dL Crossmatch See Detail 09/14/20 09/14/20 09/14/20 Range/Units 23:22 23:32 Unknown WBC (4.5-11.0) K/mm3 RBC (3.65-5.03) M/mm3 Hgb 7.9 L (11.8-15.2) gm/dl Hct 24.4 L (35.5-45.6) % MCV (84-94) fl RDW (13.2-15.2) % Plt Count 124 L (140-440) K/mm3 PT (12.2-14.9) Sec. INR (0.87-1.13) APTT (24.2-36.6) Sec. Heparin Anti-Xa Level 2.00 H (0.3-0.7) U.I./ml ABG pH (7.320-7.450) POC ABG pO2 (83-108) mmHg ABG Hemoglobin (12.0-17.5) ABG Oxyhemoglobin (94-98) ABG Sodium (136.0-145.0) mmol/L ABG Glucose (65-95) mg/dL Carboxyhemoglobin (0.5-1.5) BUN (9-20) mg/dL Glucose (75-100) mg/dL POC Glucose 188 H (70-105) mg/dL Calcium (8.4-10.2) mg/dL Total Protein (6.3-8.2) g/dL Albumin (3.9-5) g/dL Arterial Blood Glucose (65-95) mg/dL Arterial Blood Ionized Calcium (4.6-5.3) mg/dL Crossmatch 01/23/21 01/23/21 01/23/21 Range/Units 04:33 05:26 05:26 WBC 2.4 L (4.5-11.0) K/mm3 RBC 2.12 L (3.65-5.03) M/mm3 Hgb 6.5 L (11.8-15.2) gm/dl Hct 20.1 L (35.5-45.6) % MCV 95 H (84-94) fl RDW 20.7 H (13.2-15.2) % Plt Count 112 L (140-440) K/mm3 PT (12.2-14.9) Sec. INR (0.87-1.13) APTT (24.2-36.6) Sec. Heparin Anti-Xa Level (0.3-0.7) U.I./ml ABG pH 7.475 H (7.320-7.450) POC ABG pO2 44.0 L (83-108) mmHg ABG Hemoglobin 7.5 L (12.0-17.5) ABG Oxyhemoglobin 79 L (94-98) ABG Sodium 134.7 L (136.0-145.0) mmol/L ABG Glucose 259 H (65-95) mg/dL Carboxyhemoglobin 1.8 H (0.5-1.5) BUN 39 H (9-20) mg/dL Glucose 262 H (75-100) mg/dL POC Glucose (70-105) mg/dL Calcium 7.1 L (8.4-10.2) mg/dL Total Protein 4.7 L (6.3-8.2) g/dL Albumin 2.0 L (3.9-5) g/dL Arterial Blood Glucose 259 H (65-95) mg/dL Arterial Blood Ionized Calcium 4.4 L (4.6-5.3) mg/dL Crossmatch 09/15/20 09/15/20 09/15/20 Range/Units 05:38 07:58 10:46 WBC (4.5-11.0) K/mm3 RBC (3.65-5.03) M/mm3 Hgb (11.8-15.2) gm/dl Hct (35.5-45.6) % MCV (84-94) fl RDW (13.2-15.2) % Plt Count (140-440) K/mm3 PT (12.2-14.9) Sec. INR (0.87-1.13) APTT (24.2-36.6) Sec. Heparin Anti-Xa Level (0.3-0.7) U.I./ml ABG pH (7.320-7.450) POC ABG pO2 56.8 L (83-108) mmHg ABG Hemoglobin 8.9 L (12.0-17.5) ABG Oxyhemoglobin 87.6 L (94-98) ABG Sodium 131.0 L (136.0-145.0) mmol/L ABG Glucose 278 H (65-95) mg/dL Carboxyhemoglobin (0.5-1.5) BUN (9-20) mg/dL Glucose (75-100) mg/dL POC Glucose 216 H 196 H (70-105) mg/dL Calcium (8.4-10.2) mg/dL Total Protein (6.3-8.2) g/dL Albumin (3.9-5) g/dL Arterial Blood Glucose 278 H (65-95) mg/dL Arterial Blood Ionized Calcium 4.4 L (4.6-5.3) mg/dL Crossmatch 09/15/20 Range/Units 12:20 WBC (4.5-11.0) K/mm3 RBC (3.65-5.03) M/mm3 Hgb (11.8-15.2) gm/dl Hct (35.5-45.6) % MCV (84-94) fl RDW (13.2-15.2) % Plt Count (140-440) K/mm3 PT (12.2-14.9) Sec. INR (0.87-1.13) APTT (24.2-36.6) Sec. Heparin Anti-Xa Level (0.3-0.7) U.I./ml ABG pH (7.320-7.450) POC ABG pO2 (83-108) mmHg ABG Hemoglobin (12.0-17.5) ABG Oxyhemoglobin (94-98) ABG Sodium (136.0-145.0) mmol/L ABG Glucose (65-95) mg/dL Carboxyhemoglobin (0.5-1.5) BUN (9-20) mg/dL Glucose (75-100) mg/dL POC Glucose 261 H (70-105) mg/dL Calcium (8.4-10.2) mg/dL Total Protein (6.3-8.2) g/dL Albumin (3.9-5) g/dL Arterial Blood Glucose (65-95) mg/dL Arterial Blood Ionized Calcium (4.6-5.3) mg/dL Crossmatch Assessment and Plan 1. Anemia - etiology of persistently declining Hgb is unclear. This could be multifactorial due to other losses, ie - foot or hematuria. Also, component related to phlebotomy losses, and decreased production due to illness. No clear alysia GI bleed. - no plans for endoscopy at present - empiric PPI - consider risk/benefit of IV heparin and Plavix and stop if feasible - check stool for occult blood.
[2020-09-15] MEDS: PANTOPRAZOLE 40 MG INJ IV SCH (17:55)
[2020-09-15 19:29] LABS: Hematocrit 23.1 % (35.5-45.6); Hemoglobin 7.7 gm/dl (11.8-15.2)
[2020-09-15] MEDS: TAMSULOSIN 0.4 MG CAP PO SCH (21:41)
[2020-09-16] MEDS: INSULIN LISPRO 100 UNIT/ML VIAL 3 mL SUB-Q SCH ×5 (00:45→23:33)
[2020-09-16] MEDS: ACETAMINOPHEN 325 MG TAB PO PRN ×2 (07:40→17:30)
[2020-09-16] MEDS: INSULIN GLARGINE 100 UNITS/ML SUB-Q SCH ×2 (07:41→17:30)
[2020-09-16] MEDS: fentaNYL 100 MCG/2 ML INJ IV PRN (07:47)
[2020-09-16 08:15] LABS: Hematocrit 22.5 % (35.5-45.6); Hemoglobin 7.3 gm/dl (11.8-15.2); Mean Corpuscular HGB Conc 32 % (32-34); Mean Corpuscular Volume 95 fl (84-94); Platelet Count 116 K/mm3 (140-440); Red Blood Count 2.38 M/mm3 (3.65-5.03)
[2020-09-16 08:36] LABS: Alanine Aminotransferase 30 units/L (7-56); Albumin 1.9 g/dL (3.9-5); Blood Urea Nitrogen 31 mg/dL (9-20)
[2020-09-16 08:47] LABS: BUN/Creatinine Ratio 28; Calcium 6.8 mg/dL (8.4-10.2); Hemolysis Index 4
[2020-09-16] MEDS: PANTOPRAZOLE 40 MG INJ IV SCH (09:16)
[2020-09-16] MEDS: THIAMINE 100 MG TAB PO SCH (09:16)
[2020-09-16] MEDS: CILOSTAZOL 100 MG TAB PO SCH ×2 (09:16→21:42)
[2020-09-16] MEDS: ASCORBIC ACID 500 MG TAB PO SCH ×2 (09:16→21:42)
[2020-09-16] MEDS: FOLIC ACID 1 MG TAB PO SCH (09:16)
[2020-09-16] MEDS: ZINC SULFATE 220 MG CAP PO SCH ×2 (09:16→21:42)
[2020-09-16] MEDS: CLOPIDOGREL 75 MG TAB PO SCH (09:16)
[2020-09-16] MEDS: METOPROLOL TARTRATE 50 MG TAB PO SCH ×3 (09:20→21:41)
[2020-09-16] MEDS: amLODIPine 10 MG TAB PO SCH (09:23)
[2020-09-16] MEDS ORDERED: SODIUM CHLORIDE 0.9% 500 ML 500 ML IV NR (09:30)
[2020-09-16] MEDS ORDERED: POTASSIUM CHLORIDE 10 MEQ 10 MEQ/100 ML BAG IV SCH (10:00)
[2020-09-16] MEDS ORDERED: POTASSIUM CHLORIDE 20 MEQ PACKET FEEDTUBE SCH (10:00)
--- NOTE | 2020-09-16 10:05 | Progress Note ---
Assessment and Plan Assessment and plan: 64 YO Male HD #26 with PVD, Coronavirus Infection, Acute Respiratory Failure, Sepsis, Pneumonia, Toxic Encephalopathy, Necrosis of Surgical wound. Patient resting in bed. No acute decompensation overnight. No improvement overnight. Patient remains critically ill. Patient prognosis is poor to guarded. 09/10: Significant elevated blood sugar. Patient with labile blood sugar issues. Aspiration precautions continue vent weaning per freezer person. Continue antibiotics management. Patient with noted hypernatremia we will continue to monitor sodium levels. Also with anemia of chronic disease we will monitor H&H closely. 09/11; Patient remains critically ill, continue wound care, monitor and adjust insulin for better control. 09/12: Noted Anemia, Will give 2 units PRBC. Continue supportive care, wean from vent as tolerated, Continue to monitor sodium level. IR input noted, adjust further insulin 09/13: Adjust free water to Q2Hr, monitor H/H, Check labs, continue supportive care. Insulin further adjusted for better control 09/14: Patient with Hypotension, will discuss with technical business systems analyst about adjusting pressors. Renae exchange today, Continue abx 09/15: Noted severe anemia, likely secondary to Hematuria, will obtain Urology consult, bladder ultrasound. Will hold the Heparin drip at this time. Give a unit of PRBC. 09/16: Patient remains critically ill, Hbg Improved some but trended down, will give additional unit of PRBC, No need for Urology at this time, GI input appreciated, will hold Plavix and also check HIT considering Thrombocytopenia, spoke to the son Aston [phone] EXPLAINED THE CRITICAL NATURE AND MULTIORGAN FAILURE AT THIS TIME. Electrical Engineering Draftsperson to continue to manage SEVERE PROTEIN MALNUTRITION. (1) Severe sepsis with shock Current Visit: Yes Status: Acute Plan to address problem: Sepsis protocol: CBC, CMP, IV fluid resuscitation therapy as clinically indicated, IV antibiotic therapy, monitor urine output every shift, maintain mean arterial blood pressure greater than or equal to 65, (2) Acute hypoxemic respiratory failure Current Visit: Yes Status: Acute Plan to address problem: Wean vent as tolerated, daily ABG, spontaneous breathing trial daily, chest x- ray, sedation holiday, supportive care. (3) Necrosis of surgical wound Current Visit: Yes Status: Acute Plan to address problem: Surgery team consulted. pain control, supportive care. Further care as per vascular surgery team. (4) CHF (congestive heart failure) Current Visit: No Status: Chronic Qualifiers: Heart failure chronicity: chronic Plan to address problem: Strict I/O, monitor urine output every shift, daily weight, monitor fluid balance, afterload reduction, blood pressure control. (5) Hypertension Current Visit: Yes Status: Acute Qualifiers: Hypertension type: essential hypertension Qualified Code(s): I10 - Essential (primary) hypertension Plan to address problem: Monitor blood pressure every shift, continue medical management (6) UTI (urinary tract infection) Current Visit: Yes Status: Acute Qualifiers: Encounter type: initial encounter Plan to address problem: CBC, CMP, urinalysis, IV antibiotic therapy. (7) Coronavirus 19 infection Current Visit: Yes Status: Acute Plan to address problem: Coronavirus protocol: IV antibiotic therapy, IV steroid therapy, supplemental oxygen, vitamin C supplementation, zinc supplementation, (8) Peripheral vascular disease (9) DVT prophylaxis Current Visit: Yes Status: Acute Plan to address problem: SCD to bilateral lower extremities while in bed, anticoagulation as per surgical team (9) Toxic metabolic encephalopathy Current Visit: Yes Status: Acute Plan to address problem: Supportive care, treat sepsis, (10) Advance care planning Current Visit: Yes Status: Acute Plan to address problem: Disease education conducted, patient is full code, prognosis discussed, care plan discussed, patient knowledges understanding and agreement with care plan, +30 minutes (10) history of alcohol abuse [11] history of gout [12] left lower extremity/left foot ulcer The high probability of a clinically significant, sudden or life threatening deterioration of the [cardiac, pulmonary, renal, infectious disease] system(s) required my full and direct attention, intervention and personal management. The aggregate critical care time was [35] minutes. This time is in addition to time spent performing reported procedures but includes the following: [x] Data Review and interpretation [x] Patient assessment and monitoring of vital signs [x] Documentation [x] Medication orders and management History Interval history: Patient seen and examined remains on full mechanical ventilation, No new hematuria today, still with diarrhea but no alysia blood. Hospitalist Physical - Physical exam Narrative exam: General appearance: Present: remains on full ventilatory support. Limited exam due to PPE conservation during COVID Pandemic, STILL WITH MOVEMENT NON PURPOSEFUL - EENT Eyes: Present: miosis ENT: hearing decreased - Neck Neck: Present: supple - Respiratory Respiratory effort: labored Respiratory: bilateral: diminished, rhonchi - Cardiovascular Rhythm: regular Heart Sounds: Present: S1 & S2 - Extremities Extremity abnormal: edema Peripheral Pulses: abnormal (Capillary refill greater than 3.5 seconds) - Abdominal General gastrointestinal: soft, non-tender, non-distended - Integumentary Integumentary: Present: dressing and wound vac to lower ext - Psychiatric Psychiatric: no appropriate mood/affect, no intact judgment & insight, no memory intact - Neurologic Neurologic: CNII-XII intact, no gait normal - Constitutional Vitals: Temp Pulse Resp BP Pulse Ox 100.8 F H 143 H 21 119/44 93 09/16/20 03:29 09/16/20 09:27 09/16/20 08:45 09/16/20 09:27 09/16/20 08:45 General appearance: Present: no acute distress, well-nourished, obese, other (Febrile T-max 101 F) Results - Labs CBC & Chem 7: 09/16/20 04:00 09/16/20 08:10 Labs: Laboratory Last Values WBC 3.8 K/mm3 (4.5-11.0) L 09/16/20 04:00 RBC 2.38 M/mm3 (3.65-5.03) L 09/16/20 04:00 Hgb 7.3 gm/dl (11.8-15.2) L 09/16/20 04:00 Hct 22.5 % (35.5-45.6) L 09/16/20 04:00 MCV 95 fl (84-94) H 09/16/20 04:00 MCH 31 pg (28-32) 09/16/20 04:00 MCHC 32 % (32-34) 09/16/20 04:00 RDW 19.0 % (13.2-15.2) H 09/16/20 04:00 Plt Count 116 K/mm3 (140-440) L 09/16/20 04:00 Lymph % (Auto) 7.1 % (13.4-35.0) L 09/13/20 09:07 [place] % (Auto) 3.0 % (0.0-7.3) 09/13/20 09:07 Eos % (Auto) 0.0 % (0.0-4.3) 09/13/20 09:07 Baso % (Auto) 0.6 % (0.0-1.8) 09/13/20 09:07 Lymph # (Auto) 0.9 K/mm3 (1.2-5.4) L 09/13/20 09:07 [place] # (Auto) 0.4 K/mm3 (0.0-0.8) 09/13/20 09:07 Eos # (Auto) 0.0 K/mm3 (0.0-0.4) 09/13/20 09:07 Baso # (Auto) 0.1 K/mm3 (0.0-0.1) 09/13/20 09:07 Add Manual Diff Complete 09/13/20 09:07 Seg Neutrophils % 89.3 % (40.0-70.0) H 09/13/20 09:07 Nucleated RBC % Not Reportable 09/13/20 09:07 Seg Neutrophils # 10.8 K/mm3 (1.8-7.7) H 09/13/20 09:07 WBC Morphology Not Reportable 09/13/20 09:07 Hypersegmented Neuts Not Reportable 09/13/20 09:07 Hyposegmented Neuts Not Reportable 09/13/20 09:07 Hypogranular Neuts Not Reportable 09/13/20 09:07 Smudge Cells Not Reportable 09/13/20 09:07 Toxic Granulation Not Reportable 09/13/20 09:07 Toxic Vacuolation Not Reportable 09/13/20 09:07 Dohle Bodies Not Reportable 09/13/20 09:07 Pelger-Huet Anomaly Not Reportable 09/13/20 09:07 [place] Rods Not Reportable 09/13/20 09:07 Platelet Estimate Not Reportable 09/13/20 09:07 Clumped Platelets Not Reportable 09/13/20 09:07 Plt Clumps, EDTA Not Reportable 09/13/20 09:07 Large Platelets Not Reportable 09/13/20 09:07 Giant Platelets Not Reportable 09/13/20 09:07 Platelet Satelliting Not Reportable 09/13/20 09:07 Plt Morphology Comment Not Reportable 09/13/20 09:07 RBC Morphology Not Reportable 09/13/20 09:07 Dimorphic RBCs Not Reportable 09/13/20 09:07 Polychromasia Not Reportable 09/13/20 09:07 Hypochromasia Not Reportable 09/13/20 09:07 Poikilocytosis Not Reportable 09/13/20 09:07 Anisocytosis Not Reportable 09/13/20 09:07 Microcytosis Not Reportable 09/13/20 09:07 Macrocytosis Not Reportable 09/13/20 09:07 Spherocytes Not Reportable 09/13/20 09:07 Pappenheimer Bodies Not Reportable 09/13/20 09:07 Sickle Cells Not Reportable 09/13/20 09:07 Target Cells Not Reportable 09/13/20 09:07 Tear Drop Cells Not Reportable 09/13/20 09:07 Ovalocytes Not Reportable 09/13/20 09:07 Helmet Cells Not Reportable 09/13/20 09:07 [employer] Bodies Not Reportable 09/13/20 09:07 [place] Rings Not Reportable 09/13/20 09:07 Preethi Cells Not Reportable 09/13/20 09:07 Bite Cells Not Reportable 09/13/20 09:07 Crenated Cell Not Reportable 09/13/20 09:07 Elliptocytes Not Reportable 09/13/20 09:07 Acanthocytes (Spur) Not Reportable 09/13/20 09:07 Rouleaux Not Reportable 09/13/20 09:07 Hemoglobin C Crystals Not Reportable 09/13/20 09:07 Schistocytes Not Reportable 09/13/20 09:07 Malaria parasites Not Reportable 09/13/20 09:07 Ozzie Bodies Not Reportable 09/13/20 09:07 Hem Pathologist Commnt No 09/13/20 09:07 PT 15.9 Sec. (12.2-14.9) H 09/14/20 16:52 INR 1.27 (0.87-1.13) H 09/14/20 16:52 APTT 68.0 Sec. (24.2-36.6) H* 09/14/20 16:52 D-Dimer 1449.12 ng/mlDDU (0-234) H 09/08/20 19:15 Heparin Anti-Xa Level 2.00 U.I./ml (0.3-0.7) H 09/14/20 23:32 ABG pH 7.445 (7.320-7.450) 09/16/20 04:00 POC ABG pCO2 39.1 mmHg (32.0-48.0) 09/16/20 04:00 ABG pCO2 48.6 mm Hg 09/12/20 03:40 POC ABG pO2 54.8 mmHg (83-108) L 09/16/20 04:00 ABG pO2 77.1 mm Hg (80.0-90.0) L 09/12/20 03:40 POC ABG HCO3 26.3 09/16/20 04:00 ABG HCO3 31.3 mmol/L (20.0-26.0) H 09/12/20 03:40 ABG O2 Saturation 97.2 % (95.0-99.0) 09/12/20 03:40 ABG O2 Content 7.4 (0.0-44) 09/12/20 03:40 POC ABG Base Excess 2.1 09/16/20 04:00 ABG Base Excess 6.4 mmol/L (-2.0-3.0) H 09/12/20 03:40 ABG Hemoglobin 12.2 (12.0-17.5) 09/16/20 04:00 ABG Oxyhemoglobin 87.6 (94-98) L 09/15/20 10:46 ABG Carboxyhemoglobin 1.6 % (0.0-5.0) 09/12/20 03:40 ABG Methemoglobin 0 (0.0-1.5) 09/15/20 10:46 ABG Sodium 139.2 mmol/L (136.0-145.0) 09/16/20 04:00 ABG Potassium 3.2 mmol/L (3.40-4.50) L 09/16/20 04:00 ABG Chloride 108.0 mmol/L (98-107) H 09/16/20 04:00 ABG Glucose 172 mg/dL (65-95) H 09/16/20 04:00 Oxyhemoglobin 95.4 % (95.0-99.0) 09/12/20 03:40 Carboxyhemoglobin 1.0 (0.5-1.5) 09/15/20 10:46 FiO2 65.0 09/16/20 04:00 Sodium 143 mmol/L (137-145) 09/16/20 08:10 Potassium 3.1 mmol/L (3.6-5.0) L 09/16/20 08:10 Chloride 108.5 mmol/L (98-107) H 09/16/20 08:10 Carbon Dioxide 27 mmol/L (22-30) 09/16/20 08:10 Anion Gap 11 mmol/L 09/16/20 08:10 BUN 31 mg/dL (9-20) H 09/16/20 08:10 Creatinine 1.1 mg/dL (0.8-1.3) 09/16/20 08:10 Estimated GFR > 60 ml/min 09/16/20 08:10 BUN/Creatinine Ratio 28 % 09/16/20 08:10 Glucose 152 mg/dL (75-100) H 09/16/20 08:10 POC Glucose 147 mg/dL (70-105) H 09/16/20 05:24 Lactic Acid 1.40 mmol/L (0.7-2.0) 09/02/20 15:55 Calcium 6.8 mg/dL (8.4-10.2) L 09/16/20 08:10 Phosphorus 4.20 mg/dL (2.5-4.5) 09/14/20 06:25 Magnesium 2.10 mg/dL (1.7-2.3) 09/16/20 Unknown Ferritin 1485.0 ng/mL (30.0-300.0) H 09/08/20 19:15 Total Bilirubin 0.70 mg/dL (0.1-1.2) 09/16/20 08:10 AST 39 units/L (5-40) 09/16/20 08:10 ALT 30 units/L (7-56) 09/16/20 08:10 Alkaline Phosphatase 55 units/L (35-129) 09/16/20 08:10 Lactate Dehydrogenase 541 units/L (91-180) H 09/08/20 19:15 C-Reactive Protein 4.90 mg/dL (0.00-1.30) H 09/08/20 19:15 Total Protein 4.3 g/dL (6.3-8.2) L 09/16/20 08:10 Albumin 1.9 g/dL (3.9-5) L 09/16/20 08:10 Albumin/Globulin Ratio 0.8 % 09/16/20 08:10 Procalcitonin 0.16 ng/mL (<0.15) 09/08/20 19:15 Arterial Blood Glucose 172 mg/dL (65-95) H 09/16/20 04:00 Arterial Blood Ionized Calcium 4.6 mg/dL (4.6-5.3) 09/16/20 04:00 Urine Color Yellow (Yellow) 08/15/20 Unknown Urine Turbidity Clear (Clear) 08/15/20 Unknown Urine pH 6.0 (5.0-7.0) 08/15/20 Unknown Ur Specific Hope 1.017 (1.003-1.030) 08/15/20 Unknown Urine Protein 100 mg/dl mg/dL (Negative) 08/15/20 Unknown Urine Glucose (UA) 50 mg/dL (Negative) 08/15/20 Unknown Urine Ketones Neg mg/dL (Negative) 08/15/20 Unknown Urine Blood Lg (Negative) 08/15/20 Unknown Urine Nitrite Neg (Negative) 08/15/20 Unknown Urine Bilirubin Neg (Negative) 08/15/20 Unknown Urine Urobilinogen < 2.0 mg/dL (<2.0) 08/15/20 Unknown Ur Leukocyte Esterase Sm (Negative) 08/15/20 Unknown Urine WBC (Auto) 31.0 /HPF (0.0-6.0) H 08/15/20 Unknown Urine RBC (Auto) 46.0 /HPF (0.0-6.0) 08/15/20 Unknown Urine Mucus Few /HPF 08/15/20 Unknown Nasal Screen MRSA (PCR) Negative (Negative) 09/06/20 12:41 Vancomycin Trough 14.2 ug/mL (5.0-20.0) 09/05/20 11:12 Coronavirus (PCR) Positive (Negative) A 08/29/20 Unknown Blood Type O POSITIVE 09/12/20 13:30 Antibody Screen Negative 09/12/20 13:30 Crossmatch See Detail 09/12/20 13:30 Microbiology: Microbiology 09/15/20 15:45 Stool Stool Occult Blood (ARLENE) - Final Renae/IV: Voiding Method Indwelling Catheter IV Catheter Type [Right Hand] INT / Saline Lock IV Catheter Type [Right Upper PICC Line arm] IV Catheter Type [Right Wrist] INT / Saline Lock IV Catheter Type [Right INT / Saline Lock Forearm] IV Catheter Type [Left Hand] INT / Saline Lock Active Medications - Current Medications Current Medications: Generic Name Dose Route Start Last Admin Trade Name Freq PRN Reason Stop Dose Admin Acetaminophen 650 mg 08/15/20 18:13 09/16/20 07:40 Acetaminophen 325 Mg Tab PO 650 mg Q4H PRN Administration Pain MILD(1-3)/Fever >100.5/REYES Albuterol 2.5 mg 08/15/20 18:13 08/20/20 12:53 Albuterol 2.5 Mg/3 Ml Nebu IH 2.5 mg Q4HRT PRN Administration Shortness Of Breath Amlodipine Besylate 10 mg 08/16/20 10:00 09/16/20 09:23 Amlodipine 10 Mg Tab PO Not Given QDAY DELFINO Lipase/Protease/Amylase 1 each 09/13/20 19:28 Lipase 10,500/Protease 25,000/Amylase 43,750 (Units) Dr Cap FEEDTUBE PRN PRN For Clogged Feeding Tube Ascorbic Acid 500 mg 09/03/20 22:00 09/16/20 09:16 Ascorbic Acid 500 Mg Tab PO 500 mg BID DELFINO Administration Atorvastatin Calcium 40 mg 08/15/20 22:00 09/15/20 21:41 Atorvastatin 40 Mg Tab PO 40 mg QHS DELFINO Administration Cilostazol 100 mg 08/15/20 22:00 09/16/20 09:16 Cilostazol 100 Mg Tab PO 100 mg BID DELFINO Administration Dextrose 50 ml 09/10/20 13:56 Dextrose 50% In Water (25gm) 50 Ml Syringe IV Q30MIN PRN Hypoglycemia Protocol Fentanyl 50 mcg 09/05/20 05:23 09/16/20 07:47 Fentanyl 100 Mcg/2 Ml Inj IV 50 mcg Q10MIN PRN Administration ANALGESIA Folic Acid 1 mg 08/16/20 10:00 09/16/20 09:16 Folic Acid 1 Mg Tab PO 1 mg QDAY DELFINO Administration Hydrophilic Ointment 1 applic 09/05/20 05:23 Lip Therapy Vaseline TP Q2HR PRN Dry Lips Norepinephrine 4 mg in 250 mls @ 7.5 mls/hr 09/02/20 15:00 09/16/20 09:58 Levophed Drip 4 Mg/Ns 250 Ml IV 6 mcg/min TITR DELFINO 22.5 mls/hr Titration Protocol 2 MCG/MIN Vasopressin 20 unit/ Sodium 101 mls @ 9.09 mls/hr 09/02/20 16:00 09/14/20 21:55 Chloride IV 0 units/min TITR DELFINO 0 mls/hr Titration Protocol 0.03 UNITS/MIN Fentanyl Citrate 2,000 mcg in 100 mls @ 4.465 mls/hr 09/05/20 06:00 09/11/20 19:07 Fentanyl Drip Premix IV 0 mcg/kg/hr TITR DELFINO 0 mls/hr Titration Protocol 1 MCG/KG/HR Midazolam HCl 100 mg/ Sodium 100 mls @ 2 mls/hr 09/05/20 06:00 09/06/20 08:30 Chloride IV 0 mg/hr TITR DELFINO 0 mls/hr Titration Protocol 2 MG/HR Dextrose 1,000 mls @ 100 mls/hr 09/13/20 20:00 09/15/20 05:29 D5w IV 09/17/20 05:59 100 mls/hr DIRECT DELFINO Administration Levofloxacin/Dextrose 750 mg in 150 mls @ 100 mls/hr 09/14/20 10:00 09/16/20 09:17 Levaquin 750mg/150ml IV 09/17/20 09:59 100 mls/hr Q24H DELFINO Administration Protocol Amiodarone HCl 900 mg/ 500 mls @ 33.333 mls/hr 09/14/20 13:30 09/15/20 23:23 Dextrose IV 1 mg/min DIRECT DELFINO 33.333 mls/hr Administration Protocol 1 MG/MIN Magnesium Sulfate 1 gm/ Sodium 52 mls @ 52 mls/hr 09/16/20 09:30 Chloride IV 09/16/20 10:29 ONCE ONE Sodium Chloride 500 mls @ 0 mls/hr 09/16/20 09:30 Nacl 0.9% 500 Ml IV 09/16/20 23:59 ONCE NR As Directed Insulin Glargine 30 units 09/15/20 17:00 09/16/20 07:41 Insulin Glargine 100 Units/Ml SUB-Q 30 units BIDDIAB DELFINO Administration Insulin Human Lispro 0 unit 09/10/20 18:00 09/16/20 06:33 Insulin Lispro 100 Unit/Ml Vial 3 Ml SUB-Q Not Given Q6H DELFINO Protocol Loperamide HCl 2 mg 08/26/20 23:00 08/28/20 12:51 Loperamide 2 Mg Cap PO 2 mg PRN PRN Administration Diarrhea Lorazepam 1 mg 09/06/20 17:25 09/14/20 04:13 Lorazepam 2 Mg/Ml Vial IV 1 mg Q4H PRN Administration Anxiety Metoprolol Tartrate 50 mg 08/15/20 22:00 09/16/20 09:27 Metoprolol Tartrate 50 Mg Tab PO Not Given BID DELFINO Midazolam HCl 2 mg 09/05/20 05:23 09/05/20 05:56 Midazolam 2 Mg/2 Ml Inj IV 2 mg Q10MIN PRN Administration Sedation Multi-Ingred Cream/Lotion/Oil/Oint 1 applic 09/05/20 05:23 Mineral Oil/Petrolatum, White Ophth Oint 3.5 Gm OU Q4HR PRN Dry Eye(s) Ondansetron HCl 4 mg 08/15/20 18:13 08/18/20 17:46 Ondansetron 4 Mg/2 Ml Inj IV 4 mg Q8H PRN Administration Nausea And Vomiting Pantoprazole Sodium 40 mg 09/15/20 17:00 09/16/20 09:16 Pantoprazole 40 Mg Inj IV 40 mg QDAY DELFINO Administration Simple Syrup 15 ml 09/13/20 19:28 Simple Syrup 15 Ml FEEDTUBE PRN PRN Hypoglycemia Simple Syrup 30 ml 09/13/20 19:28 Simple Syrup 15 Ml FEEDTUBE PRN PRN Hypoglycemia Sodium Bicarbonate 325 mg 09/13/20 19:28 Sodium Bicarbonate 325 Mg Tab FEEDTUBE PRN PRN For Clogged Feeding Tube Sodium Chloride 10 ml 08/15/20 22:00 09/16/20 09:17 Sodium Chloride 0.9% 10 Ml Flush Syringe IV 10 ml BID DELFINO Administration Sodium Chloride 10 ml 08/15/20 18:13 Sodium Chloride 0.9% 10 Ml Flush Syringe IV PRN PRN LINE FLUSH Tamsulosin HCl 0.4 mg 09/14/20 22:00 09/15/20 21:41 Tamsulosin 0.4 Mg Cap PO 0.4 mg QHS DELFINO Administration Thiamine HCl 100 mg 08/16/20 10:00 09/16/20 09:16 Thiamine 100 Mg Tab PO 100 mg QDAY DELFINO Administration Zinc Sulfate 220 mg 09/03/20 22:00 09/16/20 09:16 Zinc Sulfate 220 Mg Cap PO 220 mg BID DELFINO Administration Nutrition/Malnutrition Assess - Dietary Evaluation Nutrition/Malnutrition Findings: Nutrition Notes Start: 08/21/20 14:41 Freq: Status: Active Protocol: Document 09/14/20 12:29 CW (Rec: 09/14/20 12:36 CW [id number]) Co-Sign 09/14/20 12:29 MK Nutrition Notes Need for Assessment generated from: MD Order Initial or Follow up Reassessment Current Diagnosis Coronary Artery Disease,Sepsis ,Hypertension,Heart Failure, Respiratory Failure, Hyperlipidemia Other Pertinent Diagnosis COVID(+),PVD, ETOH dep, pneu, gout, (L) foot ulcer Current Diet Vital HP at 70 mL/hr Labs/Tests Na 156 BUN 49 BG 337 Pertinent Medications Humalog D5w at 100ml/hr Lantus Height 5 ft 4 in Weight 83 kg [place] Body Weight (kg) 59.09 BMI 31.4 Weight change and time frame Wt gain noted, pt oliguric Weight Status Obese Subjective/Other Information FU for TF tolerance, wt, labs. Per MD order for TF management, RD informed RN to decrease TF rate for renal and BG control (pt on low carb formula). Per RN, pt is tolerating TF. 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 Yes Is Patient Ambulatory and/or Out of Bed No REE-([facility]-confined to bed) 1848.252 Kcal/Kg value to use for calculation 19 Approximate Energy Requirements Using 1577 kcal/Kg Calculation Used for Recommendations Kcal/kg Additional Notes PRO needs: >118g (>2g/kg IBW) Fluid needs: 1mL/kcal Nutrition Intervention Change Diet Order: Continue TF at decreased rate of 65ml/hr Nutrition Support: Vital High Protein at 65ml/hr For hypernatremia flush 300ml q4h, once hypernatremia is resolved flush 100ml q4h Kcal 1,560 Protein (gm) 137 Fluid (mL) 1,304 Add Supplement/Snack (indicate name/kcal [place] BID /protein ) Provides kCal: 190 Provides Protein (gm) 5 Goal #1 Meet at least 80% of estimated energy and protein needs via TF Goal #2 Wound healing Anticipated Discharge Needs: Unable to determine at this time Follow-Up By: 09/18/20 Additional Comments FU for TF rate/tolerance, hypernatremia
[2020-09-16] MEDS: NORepinephrine/NS 4 MG-250 ML 4 MG/250 ML BAG IV SCH (10:49)
[2020-09-16] MEDS ORDERED: MAGNESIUM SULFATE 1 GM in SODIUM CHLORIDE 0.9% 50 ML IV ONE (11:00)
--- NOTE | 2020-09-16 12:04 | Progress Note ---
Assessment and Plan critically ill now on pressors afib now cvr hold bb cont iv amio off heparin/plavix due to worsening anemia grim prognosis - Patient Problems (1) Acute hypoxemic respiratory failure Current Visit: Yes Status: Acute (2) Anemia Current Visit: Yes Status: Acute (3) COVID-19 virus infection Current Visit: Yes Status: Acute (4) Coronavirus infection Current Visit: Yes Status: Acute (5) Hypertension Current Visit: Yes Status: Acute Qualifiers: Hypertension type: essential hypertension Qualified Code(s): I10 - Essential (primary) hypertension (6) Hypotension Current Visit: Yes Status: Acute (7) Paroxysmal atrial fibrillation with RVR Current Visit: Yes Status: Acute (8) Toxic metabolic encephalopathy Current Visit: Yes Status: Acute (9) CAD (coronary artery disease) Current Visit: Yes Status: Chronic Qualifiers: Coronary Disease-Associated Artery/Lesion type: [place] artery [place] vs. transplanted heart: [place] heart (10) History of ETOH abuse Current Visit: Yes Status: Chronic (11) History of coronary artery bypass graft Current Visit: Yes Status: Chronic (12) Pneumonia Current Visit: Yes Status: Suspected (13) Gangrene of left foot Current Visit: No Status: Acute Subjective Principal diagnosis: Ac hypoxemic resp failure; COVID-19; Pneumonia; Sepsis; PVD; L. foot ulcer Interval history: no changes overnight discussed w rn Objective Vital Signs Temp Pulse Pulse Resp BP Pulse Ox 09/16/20 11:28 71 104/52 94 09/16/20 10:15 74 20 99/44 91 09/16/20 10:01 101 H 18 98/42 90 09/16/20 09:45 93 H 19 125/84 90 09/16/20 09:31 138 H 20 125/84 91 09/16/20 09:23 124 H 105/42 09/16/20 09:20 154 H 09/16/20 09:15 126 H 21 111/52 90 09/16/20 09:01 157 H 20 111/52 93 09/16/20 08:45 174 H 21 109/53 93 09/16/20 08:31 120 H 22 109/53 93 09/16/20 08:15 152 H 21 126/54 94 09/16/20 08:01 152 H 22 126/54 92 09/16/20 08:00 102.6 F H 140 H 152 H 23 92 09/16/20 07:58 130 H 100/39 92 09/16/20 07:45 129 H 19 110/43 91 09/16/20 07:31 180 H 22 110/43 91 09/16/20 07:15 130 H 23 101/44 91 09/16/20 07:00 147 H 20 101/44 90 09/16/20 06:45 126 H 23 107/59 90 09/16/20 06:31 163 H 21 87/42 90 09/16/20 06:15 140 H 22 103/52 90 09/16/20 06:04 117 H 105/45 92 09/16/20 06:00 144 H 22 103/52 91 09/16/20 05:46 142 H 21 105/45 91 09/16/20 05:31 127 H 22 94/46 91 09/16/20 05:15 132 H 21 100/49 90 09/16/20 05:01 165 H 26 H 100/49 91 09/16/20 04:45 134 H 23 113/47 91 09/16/20 04:31 150 H 22 142/62 89 09/16/20 04:15 168 H 24 95/48 89 09/16/20 04:01 148 H 22 110/56 90 09/16/20 04:00 93 09/16/20 03:45 180 H 22 121/52 90 09/16/20 03:30 178 H 25 H 110/56 90 09/16/20 03:29 100.8 F H 09/16/20 03:15 118 H 24 102/53 91 09/16/20 03:01 121 H 22 95/44 91 09/16/20 02:50 110 H 09/16/20 02:45 136 H 23 107/44 90 09/16/20 02:31 126 H 22 91/48 90 09/16/20 02:15 123 H 24 136/52 92 09/16/20 02:01 122 H 22 136/52 91 09/16/20 01:45 128 H 22 112/47 92 09/16/20 01:31 155 H 21 112/47 93 09/16/20 01:15 144 H 23 119/53 93 09/16/20 01:01 140 H 24 119/53 92 09/16/20 00:45 127 H 19 108/52 93 09/16/20 00:40 142 H 106/58 93 09/16/20 00:31 146 H 21 108/52 93 09/16/20 00:15 123 H 21 112/72 93 09/16/20 00:01 123 H 23 114/53 94 09/16/20 00:00 96 09/15/20 23:48 100.9 F H 09/15/20 23:45 143 H 19 136/43 94 09/15/20 23:31 122 H 22 136/43 94 09/15/20 23:15 107 H 22 125/46 95 09/15/20 23:01 102 H 17 125/46 94 09/15/20 22:45 102 H 19 118/49 95 09/15/20 22:30 100 H 18 125/53 95 09/15/20 22:15 108 H 18 112/48 95 09/15/20 22:01 99 H 18 137/46 95 09/15/20 21:45 106 H 18 119/51 95 09/15/20 21:31 111 H 19 112/48 95 09/15/20 21:15 94 H 20 117/46 95 09/15/20 21:01 102 H 19 117/46 94 09/15/20 20:45 93 H 21 128/50 94 09/15/20 20:31 103 H 20 128/50 95 09/15/20 20:25 121 H 116/52 96 09/15/20 20:15 119 H 18 130/46 96 09/15/20 20:01 109 H 19 130/46 96 09/15/20 20:00 100.9 F H 96 09/15/20 19:45 98 H 20 125/47 96 09/15/20 19:31 96 H 18 125/47 96 09/15/20 19:15 88 21 108/49 96 09/15/20 19:01 109 H 19 108/49 96 09/15/20 18:45 128 H 21 109/61 95 09/15/20 18:31 121 H 21 108/45 96 09/15/20 18:15 108 H 19 156/57 95 09/15/20 18:01 114 H 19 156/57 95 09/15/20 17:45 123 H 21 138/56 94 09/15/20 17:31 117 H 23 138/56 92 09/15/20 17:15 100 H 21 126/56 09/15/20 17:01 98 H 20 126/56 96 09/15/20 16:45 98 H 19 123/52 94 09/15/20 16:31 86 20 123/52 95 09/15/20 16:15 96 H 18 124/51 98 09/15/20 16:01 83 17 125/53 100 09/15/20 16:00 98.5 F 79 83 23 100 09/15/20 15:57 81 119/45 97 09/15/20 15:45 92 H 20 122/53 97 09/15/20 15:30 91 H 22 122/53 96 09/15/20 15:15 83 21 99/49 96 09/15/20 15:00 82 19 123/47 96 09/15/20 14:45 87 18 129/50 96 09/15/20 14:31 79 18 139/49 96 09/15/20 14:29 99.8 F H 94 H 22 145/58 95 09/15/20 14:15 99.8 F H 86 17 145/58 95 09/15/20 14:01 92 H 20 137/50 96 09/15/20 13:45 99.9 F H 86 21 125/55 96 09/15/20 13:30 78 19 137/46 95 09/15/20 13:15 99.8 F H 110 H 21 118/40 95 09/15/20 13:01 81 19 118/40 96 09/15/20 12:45 99.8 F H 79 20 104/49 94 09/15/20 12:30 74 17 120/47 95 09/15/20 12:15 99 F 73 20 114/45 93 - Physical Examination Neuro: Positive: Other (intubated) Skin: Negative: Rash - Labs and Meds Cardiac Enzymes 09/16/20 Range/Units 08:10 AST 39 (5-40) units/L CBC 09/15/20 09/16/20 Range/Units 19:15 04:00 WBC 3.8 L (4.5-11.0) K/mm3 RBC 2.38 L (3.65-5.03) M/mm3 Hgb 7.7 L 7.3 L (11.8-15.2) gm/dl Hct 23.1 L 22.5 L (35.5-45.6) % Plt Count 116 L (140-440) K/mm3 Comprehensive Metabolic Panel 09/16/20 Range/Units 08:10 Sodium 143 (137-145) mmol/L Potassium 3.1 L (3.6-5.0) mmol/L Chloride 108.5 H (98-107) mmol/L Carbon Dioxide 27 (22-30) mmol/L BUN 31 H (9-20) mg/dL Creatinine 1.1 (0.8-1.3) mg/dL Glucose 152 H (75-100) mg/dL Calcium 6.8 L (8.4-10.2) mg/dL AST 39 (5-40) units/L ALT 30 (7-56) units/L Alkaline Phosphatase 55 (35-129) units/L Total Protein 4.3 L (6.3-8.2) g/dL Albumin 1.9 L (3.9-5) g/dL - Imaging and Cardiology EKG: report reviewed, image reviewed Echo: report reviewed (07/31/2020 showed EF 60-65%, impaired relaxation, mild to mod LVH. ) - Allied health notes Allied health notes reviewed: nursing
[2020-09-16] MEDS: AMIODARONE 900 MG in DEXTROSE 5% IN WATER 482 ML IV SCH (14:44)
--- NOTE | 2020-09-16 15:25 | Progress Note ---
Assessment and Plan Acute hypoxemic respiratory failure, on mechanical ventilatory support. COVID-19 infection. Bilateral pneumonia versus pulmonary edema. Severe sepsis with shock. Peripheral vascular disease. Anemia that is microcytic. History of alcohol abuse. Acute encephalopathy. History of obesity. History of coronary artery disease. History of gout. Hyperlipidemia. Hypertension, now hypotensive. Left lower extremity / left foot ulcer. - repeat CXR in am - RN asked to resume vasopressin and wean levophed re: A-fib with RVR - agree with PRBC transfusion - continue to hold anticoagulation, trend H&H - GI evaluation ongoing - continue to wean vasopressors for target MAP > 65 mmHg (On levop-hed @ 6 mics/kasi) - keep peep at 14 (FiO2 down to 70%) - continue Amiodarone drip - cardiology evaluation ongoing - keep Lantus at 30 units SQ BID - continue care as below otherwise; - continue daily SAT and SBT assessment as tolerated - continue to wean supplemental oxygen for target O2 sat's > 92% acutely - VAP bundle addressed - continue lung protective strategies - continue bronchodilators with pulmonary hygiene per RT - wean per pulmonary driven protocols otherwise - continue accuchecks with glycemic control per SSI (While critically ill target blood glucose of 140-180 mg/dL; avoid hypoglycemia) - sedation prn for target RASS 0 to -1 - avoid nephrotoxins, renally dose all medications - accuchecks with glycemic control per SSI (While critically ill target blood glucose of 140-180 mg/dL; avoid hypoglycemia) - avoid benzodiazepine's, reduce the possibility of delirium - complete AB's per ID rec's - prn analgesia per CPOT score - Maintenance of sleep-wake cycle, avoid delirium - enteral nutritional support at goal rate as tolerated - G.I. & VTE prophylaxis - PT/OT/ROM exercises - continue mobility protocols for pressure ulcer prophylaxis - Monitor hemodynamics closely - continue other care per attending / other consultants - discharge planning ongoing concurrently COVID SPECIFIC INTERVENTIONS - completed Remdesivir as per ID/Pulmonary developed protocols - continue systemic steroids for severe COVID-19 infection empirically - follow repeat COVID tests results - zinc and vitamin C supplementation - Monitor inflammatory markers per facility protocol - ferritin, Ddimer, CRP - therapeutic anticoagulation per system Protocol based on d-dimer and clinical considerations - Continue contact and airborne isolation .... Re-evaluate in am & prn CONDITION: CRITICAL PROGNOSIS: GUARDED CODE STATUS: FULL CODE The high probability of a clinically significant, sudden or life-threatening deterioration of the [respiratory, cardiovascular, renal & neurologic] system(s) required my full and direct attention, intervention and personal management. The aggregate critical care time was [33] minutes without overlap. Time includes spent on; [x] Data Review and interpretation [x] Patient assessment and monitoring of vital signs [x] Documentation [x] Medication orders and management Subjective Date of service: 09/16/20 Principal diagnosis: Ac hypoxemic resp failure; COVID-19; Pneumonia; Sepsis; PVD; L. foot ulcer Interval history: Patient is seen today for: Acute hypoxemic respiratory failure; COVID-19 infec tion; Bilateral pneumonia versus pulmonary edema; Severe sepsis with shock; Peripheral vascular disease; Acute encephalopathy; Left lower extremity / left foot ulcer. Seen and examined at bedside; 24hour events reviewed; nursing and respiratory care staff consulted; no adverse overnight events reported to me; resting peacefully in bed; remains on MVS; receiving another PRBC transfusion today due to drop in Hb level post transfusion; remains on amiodarone as well as levophed @ 10 zahira's/min Objective Vital Signs - 12hr 09/16/20 09/16/20 09/16/20 03:29 03:30 03:45 Temperature 100.8 F H Pulse Rate 178 H 180 H Pulse Rate [ From Monitor] Respiratory 25 H 22 Rate Blood Pressure 110/56 121/52 O2 Sat by Pulse 90 90 Oximetry 09/16/20 09/16/20 09/16/20 04:00 04:01 04:15 Temperature Pulse Rate 148 H 168 H Pulse Rate [ From Monitor] Respiratory 22 24 Rate Blood Pressure 110/56 95/48 O2 Sat by Pulse 93 90 89 Oximetry 09/16/20 09/16/20 09/16/20 04:31 04:45 05:01 Temperature Pulse Rate 150 H 134 H 165 H Pulse Rate [ From Monitor] Respiratory 22 23 26 H Rate Blood Pressure 142/62 113/47 100/49 O2 Sat by Pulse 89 91 91 Oximetry 09/16/20 09/16/20 09/16/20 05:15 05:31 05:46 Temperature Pulse Rate 132 H 127 H 142 H Pulse Rate [ From Monitor] Respiratory 21 22 21 Rate Blood Pressure 100/49 94/46 105/45 O2 Sat by Pulse 90 91 91 Oximetry 09/16/20 09/16/20 09/16/20 06:00 06:04 06:15 Temperature Pulse Rate 144 H 117 H 140 H Pulse Rate [ From Monitor] Respiratory 22 22 Rate Blood Pressure 103/52 105/45 103/52 O2 Sat by Pulse 91 92 90 Oximetry 09/16/20 09/16/20 09/16/20 06:31 06:45 07:00 Temperature Pulse Rate 163 H 126 H 147 H Pulse Rate [ From Monitor] Respiratory 21 23 20 Rate Blood Pressure 87/42 107/59 101/44 O2 Sat by Pulse 90 90 90 Oximetry 09/16/20 09/16/20 09/16/20 07:15 07:31 07:45 Temperature Pulse Rate 130 H 180 H 129 H Pulse Rate [ From Monitor] Respiratory 23 22 19 Rate Blood Pressure 101/44 110/43 110/43 O2 Sat by Pulse 91 91 91 Oximetry 09/16/20 09/16/20 09/16/20 07:58 08:00 08:01 Temperature 102.6 F H Pulse Rate 130 H 140 H 152 H Pulse Rate [ 152 H From Monitor] Respiratory 23 22 Rate Blood Pressure 100/39 126/54 O2 Sat by Pulse 92 92 92 Oximetry 09/16/20 09/16/20 09/16/20 08:15 08:31 08:45 Temperature Pulse Rate 152 H 120 H 174 H Pulse Rate [ From Monitor] Respiratory 21 22 21 Rate Blood Pressure 126/54 109/53 109/53 O2 Sat by Pulse 94 93 93 Oximetry 09/16/20 09/16/20 09/16/20 09:01 09:15 09:20 Temperature Pulse Rate 157 H 126 H 154 H Pulse Rate [ From Monitor] Respiratory 20 21 Rate Blood Pressure 111/52 111/52 O2 Sat by Pulse 93 90 Oximetry 09/16/20 09/16/20 09/16/20 09:23 09:31 09:45 Temperature Pulse Rate 124 H 138 H 93 H Pulse Rate [ From Monitor] Respiratory 20 19 Rate Blood Pressure 105/42 125/84 125/84 O2 Sat by Pulse 91 90 Oximetry 09/16/20 09/16/20 09/16/20 10:01 10:15 10:30 Temperature Pulse Rate 101 H 74 71 Pulse Rate [ From Monitor] Respiratory 18 20 20 Rate Blood Pressure 98/42 99/44 91/43 O2 Sat by Pulse 90 91 90 Oximetry 09/16/20 09/16/20 09/16/20 10:45 11:00 11:15 Temperature Pulse Rate 71 70 72 Pulse Rate [ From Monitor] Respiratory 19 16 18 Rate Blood Pressure 96/51 98/51 104/52 O2 Sat by Pulse 88 91 91 Oximetry 09/16/20 09/16/20 09/16/20 11:28 11:31 11:45 Temperature Pulse Rate 71 75 91 H Pulse Rate [ From Monitor] Respiratory 21 19 Rate Blood Pressure 104/52 102/50 103/46 O2 Sat by Pulse 94 92 93 Oximetry 09/16/20 09/16/20 09/16/20 12:00 12:15 12:30 Temperature 97.3 F L Pulse Rate 91 H 87 83 Pulse Rate [ 91 H From Monitor] Respiratory 22 20 21 Rate Blood Pressure 96/48 104/43 92/43 O2 Sat by Pulse 94 93 94 Oximetry 09/16/20 09/16/20 09/16/20 12:45 13:00 13:15 Temperature Pulse Rate 77 93 H 87 Pulse Rate [ From Monitor] Respiratory 20 22 20 Rate Blood Pressure 91/52 113/49 114/47 O2 Sat by Pulse 96 96 94 Oximetry 09/16/20 09/16/20 09/16/20 13:30 13:45 14:00 Temperature Pulse Rate 89 101 H 117 H Pulse Rate [ From Monitor] Respiratory 22 22 20 Rate Blood Pressure 110/51 110/51 128/59 O2 Sat by Pulse 92 92 90 Oximetry 09/16/20 15:10 Temperature 98.9 F Pulse Rate 100 H Pulse Rate [ From Monitor] Respiratory 22 Rate Blood Pressure 130/48 O2 Sat by Pulse 93 Oximetry Constitutional: appears uncomfortable, other (elderly obese male without increased respiratory effort at rest on MVS) Eyes: non-icteric ENT: oropharynx moist, other (ETT 24 cm MONICA) Neck: supple, no lymphadenopathy, no JVD Effort: normal Ascultation: Bilateral: diminished breath sounds, rhonchi Percussion: Bilateral: not dull Cardiovascular: regular rate and rhythm Gastrointestinal: normoactive bowel sounds, soft, non-tender, non-distended (p rotuberant) Integumentary: normal (in areas i examined; please see [facility] notes for full description) Extremities: no cyanosis, pink and warm, pulses normal, no ischemia or petechiae, other (left foot diabetic ulcer) Neurologic: non-focal exam (grossly), pupils equal and round, other (responds appropriately) Psychiatric: other (unable to assess) CBC and BMP: 09/16/20 04:00 09/16/20 08:10 ABG, PT/INR, D-dimer: ABG ABG pH 7.445 (7.320-7.450) 09/16/20 04:00 POC ABG pCO2 39.1 mmHg (32.0-48.0) 09/16/20 04:00 ABG pCO2 48.6 mm Hg 09/12/20 03:40 POC ABG pO2 54.8 mmHg (83-108) L 09/16/20 04:00 ABG pO2 77.1 mm Hg (80.0-90.0) L 09/12/20 03:40 POC ABG HCO3 26.3 09/16/20 04:00 ABG O2 Saturation 97.2 % (95.0-99.0) 09/12/20 03:40 PT/INR, D-dimer PT 15.9 Sec. (12.2-14.9) H 09/14/20 16:52 INR 1.27 (0.87-1.13) H 09/14/20 16:52 D-Dimer 1449.12 ng/mlDDU (0-234) H 09/08/20 19:15 Abnormal lab findings: Abnormal Labs 08/15/20 08/15/20 08/15/20 08:49 10:40 10:40 WBC RBC 2.96 L Hgb 9.0 L Hct 25.8 L MCV MCH MCHC 35 H RDW 16.2 H Plt Count Lymph % (Auto) Hardy % (Auto) Eos % (Auto) Lymph # (Auto) Seg Neutrophils % Seg Neutrophils # PT INR APTT D-Dimer Heparin Anti-Xa Level ABG pH POC ABG pCO2 POC ABG pO2 ABG pO2 ABG HCO3 ABG O2 Saturation ABG Base Excess ABG Hemoglobin ABG Oxyhemoglobin ABG Sodium ABG Potassium ABG Chloride ABG Glucose Carboxyhemoglobin Sodium Potassium Chloride Carbon Dioxide BUN Creatinine 0.7 L Glucose 188 H POC Glucose 212 H Calcium 8.3 L Magnesium Ferritin AST Alkaline Phosphatase Lactate Dehydrogenase C-Reactive Protein Total Protein Albumin Arterial Blood Glucose Arterial Blood Ionized Calcium Urine WBC (Auto) Coronavirus (PCR) Crossmatch 08/15/20 08/15/20 08/16/20 14:00 Unknown 04:43 WBC RBC 3.28 L Hgb 9.6 L Hct 29.3 L MCV MCH MCHC RDW 16.6 H Plt Count Lymph % (Auto) Hardy % (Auto) Eos % (Auto) 4.9 H Lymph # (Auto) Seg Neutrophils % Seg Neutrophils # PT INR APTT D-Dimer Heparin Anti-Xa Level ABG pH POC ABG pCO2 POC ABG pO2 ABG pO2 ABG HCO3 ABG O2 Saturation ABG Base Excess ABG Hemoglobin ABG Oxyhemoglobin ABG Sodium ABG Potassium ABG Chloride ABG Glucose Carboxyhemoglobin Sodium Potassium Chloride Carbon Dioxide BUN 8 L Creatinine 0.6 L Glucose 115 H POC Glucose Calcium Magnesium Ferritin AST Alkaline Phosphatase Lactate Dehydrogenase C-Reactive Protein Total Protein Albumin Arterial Blood Glucose Arterial Blood Ionized Calcium Urine WBC (Auto) 31.0 H Coronavirus (PCR) Crossmatch 08/16/20 08/18/20 08/20/20 04:43 15:17 07:12 WBC RBC Hgb 9.1 L Hct 27.2 L MCV MCH MCHC RDW Plt Count Lymph % (Auto) Hardy % (Auto) Eos % (Auto) Lymph # (Auto) Seg Neutrophils % Seg Neutrophils # PT INR APTT D-Dimer Heparin Anti-Xa Level ABG pH POC ABG pCO2 POC ABG pO2 ABG pO2 ABG HCO3 ABG O2 Saturation ABG Base Excess ABG Hemoglobin ABG Oxyhemoglobin ABG Sodium ABG Potassium ABG Chloride ABG Glucose Carboxyhemoglobin Sodium 135 L Potassium Chloride 97.5 L Carbon Dioxide BUN Creatinine 0.5 L Glucose 153 H 135 H POC Glucose Calcium Magnesium Ferritin AST Alkaline Phosphatase Lactate Dehydrogenase C-Reactive Protein Total Protein Albumin Arterial Blood Glucose Arterial Blood Ionized Calcium Urine WBC (Auto) Coronavirus (PCR) Crossmatch 08/20/20 08/20/20 08/20/20 07:12 07:12 08:07 WBC RBC Hgb Hct MCV MCH MCHC RDW Plt Count Lymph % (Auto) Hardy % (Auto) Eos % (Auto) Lymph # (Auto) Seg Neutrophils % Seg Neutrophils # PT INR 1.15 H APTT D-Dimer Heparin Anti-Xa Level ABG pH POC ABG pCO2 POC ABG pO2 ABG pO2 ABG HCO3 ABG O2 Saturation ABG Base Excess ABG Hemoglobin ABG Oxyhemoglobin ABG Sodium ABG Potassium ABG Chloride ABG Glucose Carboxyhemoglobin Sodium Potassium Chloride Carbon Dioxide BUN Creatinine Glucose 113 H POC Glucose 108 H Calcium Magnesium Ferritin AST Alkaline Phosphatase Lactate Dehydrogenase C-Reactive Protein Total Protein Albumin Arterial Blood Glucose Arterial Blood Ionized Calcium Urine WBC (Auto) Coronavirus (PCR) Crossmatch 08/20/20 08/20/20 08/21/20 16:32 22:34 07:42 WBC RBC Hgb Hct MCV MCH MCHC RDW Plt Count Lymph % (Auto) Hardy % (Auto) Eos % (Auto) Lymph # (Auto) Seg Neutrophils % Seg Neutrophils # PT INR APTT D-Dimer Heparin Anti-Xa Level ABG pH POC ABG pCO2 POC ABG pO2 ABG pO2 ABG HCO3 ABG O2 Saturation ABG Base Excess ABG Hemoglobin ABG Oxyhemoglobin ABG Sodium ABG Potassium ABG Chloride ABG Glucose Carboxyhemoglobin Sodium Potassium Chloride Carbon Dioxide BUN Creatinine Glucose POC Glucose 107 H 139 H 115 H Calcium Magnesium Ferritin AST Alkaline Phosphatase Lactate Dehydrogenase C-Reactive Protein Total Protein Albumin Arterial Blood Glucose Arterial Blood Ionized Calcium Urine WBC (Auto) Coronavirus (PCR) Crossmatch 08/21/20 08/21/20 08/21/20 08:14 08:14 11:31 WBC RBC 3.08 L Hgb 8.9 L Hct 27.0 L MCV MCH MCHC RDW 16.7 H Plt Count Lymph % (Auto) Hardy % (Auto) Eos % (Auto) Lymph # (Auto) Seg Neutrophils % Seg Neutrophils # PT INR APTT D-Dimer Heparin Anti-Xa Level ABG pH POC ABG pCO2 POC ABG pO2 ABG pO2 ABG HCO3 ABG O2 Saturation ABG Base Excess ABG Hemoglobin ABG Oxyhemoglobin ABG Sodium ABG Potassium ABG Chloride ABG Glucose Carboxyhemoglobin Sodium 136 L Potassium Chloride Carbon Dioxide BUN Creatinine Glucose 129 H POC Glucose 132 H Calcium Magnesium Ferritin AST Alkaline Phosphatase Lactate Dehydrogenase C-Reactive Protein Total Protein Albumin Arterial Blood Glucose Arterial Blood Ionized Calcium Urine WBC (Auto) Coronavirus (PCR) Crossmatch 08/24/20 08/25/20 08/26/20 10:57 18:39 11:57 WBC RBC Hgb Hct MCV MCH MCHC RDW Plt Count Lymph % (Auto) Hardy % (Auto) Eos % (Auto) Lymph # (Auto) Seg Neutrophils % Seg Neutrophils # PT INR APTT D-Dimer Heparin Anti-Xa Level ABG pH POC ABG pCO2 POC ABG pO2 ABG pO2 ABG HCO3 ABG O2 Saturation ABG Base Excess ABG Hemoglobin ABG Oxyhemoglobin ABG Sodium ABG Potassium ABG Chloride ABG Glucose Carboxyhemoglobin Sodium Potassium Chloride Carbon Dioxide BUN Creatinine Glucose POC Glucose 126 H 120 H 127 H Calcium Magnesium Ferritin AST Alkaline Phosphatase Lactate Dehydrogenase C-Reactive Protein Total Protein Albumin Arterial Blood Glucose Arterial Blood Ionized Calcium Urine WBC (Auto) Coronavirus (PCR) Crossmatch 08/26/20 08/26/20 08/28/20 18:44 23:31 19:34 WBC RBC 3.09 L Hgb 8.7 L Hct 25.5 L MCV 82 L MCH MCHC RDW 17.1 H Plt Count Lymph % (Auto) Hardy % (Auto) 9.1 H Eos % (Auto) Lymph # (Auto) 0.8 L Seg Neutrophils % 71.7 H Seg Neutrophils # PT INR APTT D-Dimer Heparin Anti-Xa Level ABG pH POC ABG pCO2 POC ABG pO2 ABG pO2 ABG HCO3 ABG O2 Saturation ABG Base Excess ABG Hemoglobin ABG Oxyhemoglobin ABG Sodium ABG Potassium ABG Chloride ABG Glucose Carboxyhemoglobin Sodium Potassium Chloride Carbon Dioxide BUN Creatinine Glucose POC Glucose 125 H 115 H Calcium Magnesium Ferritin AST Alkaline Phosphatase Lactate Dehydrogenase C-Reactive Protein Total Protein Albumin Arterial Blood Glucose Arterial Blood Ionized Calcium Urine WBC (Auto) Coronavirus (PCR) Crossmatch 08/28/20 08/28/20 08/29/20 19:34 22:16 08:06 WBC RBC Hgb Hct MCV MCH MCHC RDW Plt Count Lymph % (Auto) Hardy % (Auto) Eos % (Auto) Lymph # (Auto) Seg Neutrophils % Seg Neutrophils # PT INR APTT D-Dimer Heparin Anti-Xa Level ABG pH POC ABG pCO2 POC ABG pO2 ABG pO2 ABG HCO3 ABG O2 Saturation ABG Base Excess ABG Hemoglobin ABG Oxyhemoglobin ABG Sodium ABG Potassium ABG Chloride ABG Glucose Carboxyhemoglobin Sodium 130 L Potassium 2.6 L* Chloride 96.4 L Carbon Dioxide BUN Creatinine Glucose 119 H POC Glucose 110 H 119 H Calcium 7.8 L Magnesium Ferritin AST Alkaline Phosphatase Lactate Dehydrogenase C-Reactive Protein Total Protein Albumin Arterial Blood Glucose Arterial Blood Ionized Calcium Urine WBC (Auto) Coronavirus (PCR) Crossmatch 08/29/20 08/29/20 08/29/20 12:13 16:37 17:38 WBC RBC Hgb Hct MCV MCH MCHC RDW Plt Count Lymph % (Auto) Hardy % (Auto) Eos % (Auto) Lymph # (Auto) Seg Neutrophils % Seg Neutrophils # PT INR APTT D-Dimer Heparin Anti-Xa Level ABG pH POC ABG pCO2 POC ABG pO2 ABG pO2 ABG HCO3 ABG O2 Saturation ABG Base Excess ABG Hemoglobin ABG Oxyhemoglobin ABG Sodium ABG Potassium ABG Chloride ABG Glucose Carboxyhemoglobin Sodium 133 L Potassium 3.0 L Chloride 97.9 L Carbon Dioxide 21 L BUN Creatinine Glucose 111 H POC Glucose 109 H 106 H Calcium 8.3 L Magnesium 1.30 L Ferritin AST Alkaline Phosphatase Lactate Dehydrogenase C-Reactive Protein Total Protein Albumin Arterial Blood Glucose Arterial Blood Ionized Calcium Urine WBC (Auto) Coronavirus (PCR) Crossmatch 08/29/20 08/29/20 08/29/20 19:21 19:21 19:21 WBC RBC Hgb Hct MCV MCH MCHC RDW Plt Count Lymph % (Auto) Hardy % (Auto) Eos % (Auto) Lymph # (Auto) Seg Neutrophils % Seg Neutrophils # PT INR APTT D-Dimer 688.12 H Heparin Anti-Xa Level ABG pH POC ABG pCO2 POC ABG pO2 ABG pO2 ABG HCO3 ABG O2 Saturation ABG Base Excess ABG Hemoglobin ABG Oxyhemoglobin ABG Sodium ABG Potassium ABG Chloride ABG Glucose Carboxyhemoglobin Sodium Potassium 3.1 L Chloride Carbon Dioxide BUN Creatinine Glucose POC Glucose Calcium Magnesium 1.50 L Ferritin 1476.0 H AST Alkaline Phosphatase Lactate Dehydrogenase C-Reactive Protein Total Protein Albumin Arterial Blood Glucose Arterial Blood Ionized Calcium Urine WBC (Auto) Coronavirus (PCR) Crossmatch 08/29/20 08/29/20 08/31/20 19:21 Unknown 04:30 WBC RBC 3.12 L Hgb 9.1 L Hct 25.7 L MCV 83 L MCH MCHC 35 H RDW 17.4 H Plt Count Lymph % (Auto) Hardy % (Auto) 9.4 H Eos % (Auto) Lymph # (Auto) Seg Neutrophils % Seg Neutrophils # PT INR APTT D-Dimer Heparin Anti-Xa Level ABG pH POC ABG pCO2 POC ABG pO2 ABG pO2 ABG HCO3 ABG O2 Saturation ABG Base Excess ABG Hemoglobin ABG Oxyhemoglobin ABG Sodium ABG Potassium ABG Chloride ABG Glucose Carboxyhemoglobin Sodium Potassium Chloride Carbon Dioxide BUN Creatinine Glucose POC Glucose Calcium Magnesium Ferritin AST Alkaline Phosphatase Lactate Dehydrogenase 373 H C-Reactive Protein 18.30 H Total Protein Albumin Arterial Blood Glucose Arterial Blood Ionized Calcium Urine WBC (Auto) Coronavirus (PCR) Positive A Crossmatch 08/31/20 09/02/20 09/02/20 04:30 06:28 06:49 WBC RBC Hgb Hct MCV MCH MCHC RDW Plt Count Lymph % (Auto) Hardy % (Auto) Eos % (Auto) Lymph # (Auto) Seg Neutrophils % Seg Neutrophils # PT INR APTT D-Dimer Heparin Anti-Xa Level ABG pH POC ABG pCO2 26.2 L POC ABG pO2 82.2 L ABG pO2 ABG HCO3 ABG O2 Saturation ABG Base Excess ABG Hemoglobin 10.1 L ABG Oxyhemoglobin ABG Sodium 134.5 L ABG Potassium 3.2 L ABG Chloride ABG Glucose 127 H Carboxyhemoglobin 0.3 L Sodium 134 L Potassium 3.4 L Chloride Carbon Dioxide BUN Creatinine Glucose 129 H POC Glucose 109 H Calcium 8.0 L Magnesium Ferritin AST Alkaline Phosphatase Lactate Dehydrogenase C-Reactive Protein Total Protein Albumin Arterial Blood Glucose 127 H Arterial Blood Ionized Calcium 4.5 L Urine WBC (Auto) Coronavirus (PCR) Crossmatch 09/02/20 09/02/20 09/02/20 11:32 15:55 15:55 WBC RBC Hgb Hct MCV MCH MCHC RDW Plt Count Lymph % (Auto) Hardy % (Auto) Eos % (Auto) Lymph # (Auto) Seg Neutrophils % Seg Neutrophils # PT 15.5 H INR 1.23 H APTT 50.2 H D-Dimer 2186.40 H Heparin Anti-Xa Level ABG pH POC ABG pCO2 POC ABG pO2 ABG pO2 ABG HCO3 ABG O2 Saturation ABG Base Excess ABG Hemoglobin ABG Oxyhemoglobin ABG Sodium ABG Potassium ABG Chloride ABG Glucose Carboxyhemoglobin Sodium Potassium Chloride Carbon Dioxide 21 L BUN 30 H Creatinine 1.6 H Glucose 125 H POC Glucose 112 H Calcium 7.8 L Magnesium Ferritin AST Alkaline Phosphatase Lactate Dehydrogenase C-Reactive Protein Total Protein Albumin Arterial Blood Glucose Arterial Blood Ionized Calcium Urine WBC (Auto) Coronavirus (PCR) Crossmatch 09/02/20 09/02/20 09/02/20 15:55 15:55 17:34 WBC 11.2 H RBC 2.94 L Hgb 8.1 L Hct 24.3 L MCV 83 L MCH 27 L MCHC RDW 17.7 H Plt Count Lymph % (Auto) 12.7 L Hardy % (Auto) Eos % (Auto) Lymph # (Auto) Seg Neutrophils % 82.5 H Seg Neutrophils # 9.3 H PT INR APTT D-Dimer Heparin Anti-Xa Level ABG pH POC ABG pCO2 POC ABG pO2 ABG pO2 ABG HCO3 ABG O2 Saturation ABG Base Excess ABG Hemoglobin ABG Oxyhemoglobin ABG Sodium ABG Potassium ABG Chloride ABG Glucose Carboxyhemoglobin Sodium Potassium Chloride Carbon Dioxide BUN Creatinine Glucose POC Glucose 127 H Calcium Magnesium Ferritin 1892.0 H AST Alkaline Phosphatase Lactate Dehydrogenase C-Reactive Protein Total Protein Albumin Arterial Blood Glucose Arterial Blood Ionized Calcium Urine WBC (Auto) Coronavirus (PCR) Crossmatch 09/03/20 09/03/20 09/03/20 07:13 16:40 23:40 WBC RBC Hgb Hct MCV MCH MCHC RDW Plt Count Lymph % (Auto) Hardy % (Auto) Eos % (Auto) Lymph # (Auto) Seg Neutrophils % Seg Neutrophils # PT INR APTT D-Dimer Heparin Anti-Xa Level 0.88 H ABG pH POC ABG pCO2 POC ABG pO2 ABG pO2 ABG HCO3 ABG O2 Saturation ABG Base Excess ABG Hemoglobin ABG Oxyhemoglobin ABG Sodium ABG Potassium ABG Chloride ABG Glucose Carboxyhemoglobin Sodium Potassium 3.2 L Chloride 109.7 H Carbon Dioxide BUN 24 H Creatinine Glucose 142 H POC Glucose 220 H Calcium 8.2 L Magnesium Ferritin AST 75 H Alkaline Phosphatase Lactate Dehydrogenase C-Reactive Protein Total Protein 5.8 L Albumin 2.7 L Arterial Blood Glucose Arterial Blood Ionized Calcium Urine WBC (Auto) Coronavirus (PCR) Crossmatch 09/04/20 09/04/20 09/04/20 07:25 07:25 11:57 WBC RBC Hgb 9.0 L Hct 27.9 L MCV MCH MCHC RDW Plt Count Lymph % (Auto) Hardy % (Auto) Eos % (Auto) Lymph # (Auto) Seg Neutrophils % Seg Neutrophils # PT INR APTT D-Dimer Heparin Anti-Xa Level ABG pH POC ABG pCO2 POC ABG pO2 ABG pO2 ABG HCO3 ABG O2 Saturation ABG Base Excess ABG Hemoglobin ABG Oxyhemoglobin ABG Sodium ABG Potassium ABG Chloride ABG Glucose Carboxyhemoglobin Sodium 148 H Potassium Chloride 116.9 H Carbon Dioxide BUN Creatinine Glucose 129 H POC Glucose 113 H Calcium Magnesium Ferritin AST 93 H Alkaline Phosphatase 134 H Lactate Dehydrogenase C-Reactive Protein Total Protein 6.0 L Albumin 2.6 L Arterial Blood Glucose Arterial Blood Ionized Calcium Urine WBC (Auto) Coronavirus (PCR) Crossmatch 09/05/20 09/05/20 09/05/20 06:24 07:17 13:38 WBC RBC Hgb Hct MCV MCH MCHC RDW Plt Count Lymph % (Auto) Hardy % (Auto) Eos % (Auto) Lymph # (Auto) Seg Neutrophils % Seg Neutrophils # PT INR APTT D-Dimer Heparin Anti-Xa Level ABG pH 7.218 L POC ABG pCO2 66.0 H POC ABG pO2 45.8 L 79.1 L ABG pO2 ABG HCO3 ABG O2 Saturation ABG Base Excess ABG Hemoglobin 10.7 L 9.6 L ABG Oxyhemoglobin 74.5 L ABG Sodium 146.5 H 145.4 H ABG Potassium ABG Chloride 115.0 H 117.0 H ABG Glucose 146 H 106 H Carboxyhemoglobin 0.1 L 0 L Sodium 152 H Potassium Chloride 115.9 H Carbon Dioxide BUN Creatinine Glucose 134 H POC Glucose Calcium Magnesium Ferritin AST 69 H Alkaline Phosphatase 168 H Lactate Dehydrogenase C-Reactive Protein Total Protein 5.4 L Albumin 2.7 L Arterial Blood Glucose 146 H 106 H Arterial Blood Ionized Calcium Urine WBC (Auto) Coronavirus (PCR) Crossmatch 09/05/20 09/06/20 09/06/20 17:27 04:15 07:29 WBC RBC Hgb 7.8 L Hct 24.0 L MCV MCH MCHC RDW Plt Count Lymph % (Auto) Hardy % (Auto) Eos % (Auto) Lymph # (Auto) Seg Neutrophils % Seg Neutrophils # PT INR APTT D-Dimer Heparin Anti-Xa Level ABG pH POC ABG pCO2 POC ABG pO2 ABG pO2 184.9 H ABG HCO3 19.9 L ABG O2 Saturation 99.2 H ABG Base Excess -3.5 L ABG Hemoglobin 8.9 L ABG Oxyhemoglobin ABG Sodium ABG Potassium ABG Chloride ABG Glucose Carboxyhemoglobin Sodium Potassium Chloride Carbon Dioxide BUN Creatinine Glucose POC Glucose 124 H Calcium Magnesium Ferritin AST Alkaline Phosphatase Lactate Dehydrogenase C-Reactive Protein Total Protein Albumin Arterial Blood Glucose Arterial Blood Ionized Calcium Urine WBC (Auto) Coronavirus (PCR) Crossmatch 09/06/20 09/06/20 09/06/20 07:29 07:29 12:02 WBC 11.3 H RBC 2.83 L Hgb 7.8 L Hct 24.3 L MCV MCH MCHC RDW 17.7 H Plt Count Lymph % (Auto) Hardy % (Auto) Eos % (Auto) Lymph # (Auto) Seg Neutrophils % Seg Neutrophils # PT INR APTT D-Dimer Heparin Anti-Xa Level ABG pH POC ABG pCO2 POC ABG pO2 ABG pO2 ABG HCO3 ABG O2 Saturation ABG Base Excess ABG Hemoglobin ABG Oxyhemoglobin ABG Sodium ABG Potassium ABG Chloride ABG Glucose Carboxyhemoglobin Sodium 151 H Potassium Chloride 117.6 H Carbon Dioxide BUN 24 H Creatinine Glucose 159 H POC Glucose 158 H Calcium 7.7 L Magnesium Ferritin AST Alkaline Phosphatase Lactate Dehydrogenase C-Reactive Protein Total Protein Albumin Arterial Blood Glucose Arterial Blood Ionized Calcium Urine WBC (Auto) Coronavirus (PCR) Crossmatch 09/07/20 09/08/20 09/08/20 05:21 04:31 04:35 WBC RBC Hgb 7.4 L Hct 22.7 L MCV MCH MCHC RDW Plt Count Lymph % (Auto) Hardy % (Auto) Eos % (Auto) Lymph # (Auto) Seg Neutrophils % Seg Neutrophils # PT INR APTT D-Dimer Heparin Anti-Xa Level ABG pH POC ABG pCO2 49.1 H POC ABG pO2 46.0 L 58.6 L ABG pO2 ABG HCO3 ABG O2 Saturation ABG Base Excess ABG Hemoglobin 8.6 L 7.8 L ABG Oxyhemoglobin 87.7 L ABG Sodium 145.1 H ABG Potassium ABG Chloride 116.0 H 116.0 H ABG Glucose 238 H 255 H Carboxyhemoglobin Sodium Potassium Chloride Carbon Dioxide BUN Creatinine Glucose POC Glucose Calcium Magnesium Ferritin AST Alkaline Phosphatase Lactate Dehydrogenase C-Reactive Protein Total Protein Albumin Arterial Blood Glucose 238 H 255 H Arterial Blood Ionized Calcium Urine WBC (Auto) Coronavirus (PCR) Crossmatch 09/08/20 09/08/20 09/08/20 12:45 17:26 19:15 WBC RBC Hgb Hct MCV MCH MCHC RDW Plt Count Lymph % (Auto) Hardy % (Auto) Eos % (Auto) Lymph # (Auto) Seg Neutrophils % Seg Neutrophils # PT INR APTT D-Dimer Heparin Anti-Xa Level ABG pH POC ABG pCO2 POC ABG pO2 ABG pO2 ABG HCO3 ABG O2 Saturation ABG Base Excess ABG Hemoglobin ABG Oxyhemoglobin ABG Sodium ABG Potassium ABG Chloride ABG Glucose Carboxyhemoglobin Sodium Potassium Chloride Carbon Dioxide BUN Creatinine Glucose POC Glucose 270 H 294 H Calcium Magnesium Ferritin AST Alkaline Phosphatase Lactate Dehydrogenase C-Reactive Protein 4.90 H Total Protein Albumin Arterial Blood Glucose Arterial Blood Ionized Calcium Urine WBC (Auto) Coronavirus (PCR) Crossmatch 09/08/20 09/08/20 09/08/20 19:15 19:15 19:15 WBC RBC Hgb Hct MCV MCH MCHC RDW Plt Count Lymph % (Auto) Hardy % (Auto) Eos % (Auto) Lymph # (Auto) Seg Neutrophils % Seg Neutrophils # PT INR APTT D-Dimer 1449.12 H Heparin Anti-Xa Level ABG pH POC ABG pCO2 POC ABG pO2 ABG pO2 ABG HCO3 ABG O2 Saturation ABG Base Excess ABG Hemoglobin ABG Oxyhemoglobin ABG Sodium ABG Potassium ABG Chloride ABG Glucose Carboxyhemoglobin Sodium Potassium Chloride Carbon Dioxide BUN Creatinine Glucose POC Glucose Calcium Magnesium Ferritin 1485.0 H AST Alkaline Phosphatase Lactate Dehydrogenase 541 H C-Reactive Protein Total Protein Albumin Arterial Blood Glucose Arterial Blood Ionized Calcium Urine WBC (Auto) Coronavirus (PCR) Crossmatch 09/09/20 09/09/20 09/09/20 04:40 12:15 17:36 WBC RBC Hgb Hct MCV MCH MCHC RDW Plt Count Lymph % (Auto) Hardy % (Auto) Eos % (Auto) Lymph # (Auto) Seg Neutrophils % Seg Neutrophils # PT INR APTT D-Dimer Heparin Anti-Xa Level ABG pH POC ABG pCO2 POC ABG pO2 75.1 L ABG pO2 ABG HCO3 ABG O2 Saturation ABG Base Excess ABG Hemoglobin 10.7 L ABG Oxyhemoglobin 93.9 L ABG Sodium 146.7 H ABG Potassium ABG Chloride 113.0 H ABG Glucose 420 H Carboxyhemoglobin 0.2 L Sodium Potassium Chloride Carbon Dioxide BUN Creatinine Glucose POC Glucose 281 H 368 H Calcium Magnesium Ferritin AST Alkaline Phosphatase Lactate Dehydrogenase C-Reactive Protein Total Protein Albumin Arterial Blood Glucose 420 H Arterial Blood Ionized Calcium Urine WBC (Auto) Coronavirus (PCR) Crossmatch 09/10/20 09/10/20 09/10/20 04:45 07:15 11:51 WBC RBC Hgb 7.7 L Hct 24.8 L MCV MCH MCHC RDW Plt Count Lymph % (Auto) Hardy % (Auto) Eos % (Auto) Lymph # (Auto) Seg Neutrophils % Seg Neutrophils # PT INR APTT D-Dimer Heparin Anti-Xa Level ABG pH POC ABG pCO2 POC ABG pO2 ABG pO2 ABG HCO3 ABG O2 Saturation ABG Base Excess ABG Hemoglobin 8.0 L ABG Oxyhemoglobin ABG Sodium 150.8 H ABG Potassium ABG Chloride 117.0 H ABG Glucose 461 H Carboxyhemoglobin Sodium Potassium Chloride Carbon Dioxide BUN Creatinine Glucose POC Glucose 358 H Calcium Magnesium Ferritin AST Alkaline Phosphatase Lactate Dehydrogenase C-Reactive Protein Total Protein Albumin Arterial Blood Glucose 461 H Arterial Blood Ionized Calcium Urine WBC (Auto) Coronavirus (PCR) Crossmatch 09/10/20 09/10/20 09/11/20 17:28 23:29 04:55 WBC RBC Hgb Hct MCV MCH MCHC RDW Plt Count Lymph % (Auto) Hardy % (Auto) Eos % (Auto) Lymph # (Auto) Seg Neutrophils % Seg Neutrophils # PT INR APTT D-Dimer Heparin Anti-Xa Level ABG pH POC ABG pCO2 49.3 H POC ABG pO2 78.2 L ABG pO2 ABG HCO3 ABG O2 Saturation ABG Base Excess ABG Hemoglobin 8.2 L ABG Oxyhemoglobin ABG Sodium 155.0 H ABG Potassium ABG Chloride 120.0 H ABG Glucose 515 H Carboxyhemoglobin Sodium Potassium Chloride Carbon Dioxide BUN Creatinine Glucose POC Glucose 434 H 384 H Calcium Magnesium Ferritin AST Alkaline Phosphatase Lactate Dehydrogenase C-Reactive Protein Total Protein Albumin Arterial Blood Glucose 515 H Arterial Blood Ionized Calcium Urine WBC (Auto) Coronavirus (PCR) Crossmatch 09/11/20 09/11/20 09/11/20 05:03 06:10 06:10 WBC 11.1 H RBC 2.55 L Hgb 7.1 L Hct 23.4 L MCV MCH MCHC 30 L RDW 19.6 H Plt Count Lymph % (Auto) Hardy % (Auto) Eos % (Auto) Lymph # (Auto) Seg Neutrophils % Seg Neutrophils # PT INR APTT D-Dimer Heparin Anti-Xa Level ABG pH POC ABG pCO2 POC ABG pO2 ABG pO2 ABG HCO3 ABG O2 Saturation ABG Base Excess ABG Hemoglobin ABG Oxyhemoglobin ABG Sodium ABG Potassium ABG Chloride ABG Glucose Carboxyhemoglobin Sodium 159 H D Potassium Chloride 121.9 H Carbon Dioxide BUN 59 H Creatinine Glucose 530 H* POC Glucose 306 H Calcium 8.2 L Magnesium Ferritin AST Alkaline Phosphatase Lactate Dehydrogenase C-Reactive Protein Total Protein Albumin Arterial Blood Glucose Arterial Blood Ionized Calcium Urine WBC (Auto) Coronavirus (PCR) Crossmatch 09/11/20 09/11/20 09/11/20 08:12 12:13 17:04 WBC RBC Hgb Hct MCV MCH MCHC RDW Plt Count Lymph % (Auto) Hardy % (Auto) Eos % (Auto) Lymph # (Auto) Seg Neutrophils % Seg Neutrophils # PT INR APTT D-Dimer Heparin Anti-Xa Level ABG pH POC ABG pCO2 POC ABG pO2 ABG pO2 ABG HCO3 ABG O2 Saturation ABG Base Excess ABG Hemoglobin ABG Oxyhemoglobin ABG Sodium ABG Potassium ABG Chloride ABG Glucose Carboxyhemoglobin Sodium Potassium Chloride Carbon Dioxide BUN Creatinine Glucose 526 H* POC Glucose 374 H 398 H Calcium Magnesium Ferritin AST Alkaline Phosphatase Lactate Dehydrogenase C-Reactive Protein Total Protein Albumin Arterial Blood Glucose Arterial Blood Ionized Calcium Urine WBC (Auto) Coronavirus (PCR) Crossmatch 09/11/20 09/12/20 09/12/20 23:39 03:40 05:42 WBC RBC Hgb Hct MCV MCH MCHC RDW Plt Count Lymph % (Auto) Hardy % (Auto) Eos % (Auto) Lymph # (Auto) Seg Neutrophils % Seg Neutrophils # PT INR APTT D-Dimer Heparin Anti-Xa Level ABG pH POC ABG pCO2 POC ABG pO2 ABG pO2 77.1 L ABG HCO3 31.3 H ABG O2 Saturation ABG Base Excess 6.4 H ABG Hemoglobin 5.4 L ABG Oxyhemoglobin ABG Sodium ABG Potassium ABG Chloride ABG Glucose Carboxyhemoglobin Sodium Potassium Chloride Carbon Dioxide BUN Creatinine Glucose POC Glucose 355 H 286 H Calcium Magnesium Ferritin AST Alkaline Phosphatase Lactate Dehydrogenase C-Reactive Protein Total Protein Albumin Arterial Blood Glucose Arterial Blood Ionized Calcium Urine WBC (Auto) Coronavirus (PCR) Crossmatch 09/12/20 09/12/20 09/12/20 06:01 06:01 11:22 WBC RBC 2.36 L Hgb 6.6 L Hct 21.7 L MCV MCH MCHC 31 L RDW 19.9 H Plt Count Lymph % (Auto) 8.5 L Hardy % (Auto) Eos % (Auto) Lymph # (Auto) 0.8 L Seg Neutrophils % 86.6 H Seg Neutrophils # 8.5 H PT INR APTT D-Dimer Heparin Anti-Xa Level ABG pH POC ABG pCO2 POC ABG pO2 ABG pO2 ABG HCO3 ABG O2 Saturation ABG Base Excess ABG Hemoglobin ABG Oxyhemoglobin ABG Sodium ABG Potassium ABG Chloride ABG Glucose Carboxyhemoglobin Sodium 153 H Potassium Chloride 117.7 H Carbon Dioxide 32 H BUN 46 H Creatinine 0.7 L Glucose 358 H POC Glucose 350 H Calcium 7.3 L Magnesium Ferritin AST Alkaline Phosphatase Lactate Dehydrogenase C-Reactive Protein Total Protein Albumin Arterial Blood Glucose Arterial Blood Ionized Calcium Urine WBC (Auto) Coronavirus (PCR) Crossmatch 09/12/20 09/12/20 09/12/20 13:30 16:47 17:40 WBC RBC Hgb Hct MCV MCH MCHC RDW Plt Count Lymph % (Auto) Hardy % (Auto) Eos % (Auto) Lymph # (Auto) Seg Neutrophils % Seg Neutrophils # PT INR APTT D-Dimer Heparin Anti-Xa Level ABG pH POC ABG pCO2 POC ABG pO2 ABG pO2 ABG HCO3 ABG O2 Saturation ABG Base Excess ABG Hemoglobin ABG Oxyhemoglobin ABG Sodium ABG Potassium ABG Chloride ABG Glucose Carboxyhemoglobin Sodium Potassium Chloride Carbon Dioxide BUN Creatinine Glucose POC Glucose 389 H 402 H Calcium Magnesium Ferritin AST Alkaline Phosphatase Lactate Dehydrogenase C-Reactive Protein Total Protein Albumin Arterial Blood Glucose Arterial Blood Ionized Calcium Urine WBC (Auto) Coronavirus (PCR) Crossmatch See Detail 09/12/20 09/13/20 09/13/20 23:56 02:09 05:08 WBC RBC Hgb Hct MCV MCH MCHC RDW Plt Count Lymph % (Auto) Hardy % (Auto) Eos % (Auto) Lymph # (Auto) Seg Neutrophils % Seg Neutrophils # PT INR APTT D-Dimer Heparin Anti-Xa Level ABG pH 7.471 H POC ABG pCO2 POC ABG pO2 75.2 L ABG pO2 ABG HCO3 ABG O2 Saturation ABG Base Excess ABG Hemoglobin 11.5 L ABG Oxyhemoglobin ABG Sodium 158.8 H ABG Potassium ABG Chloride 122.0 H ABG Glucose 387 H Carboxyhemoglobin Sodium Potassium Chloride Carbon Dioxide BUN Creatinine Glucose POC Glucose 337 H 256 H Calcium Magnesium Ferritin AST Alkaline Phosphatase Lactate Dehydrogenase C-Reactive Protein Total Protein Albumin Arterial Blood Glucose 387 H Arterial Blood Ionized Calcium Urine WBC (Auto) Coronavirus (PCR) Crossmatch 09/13/20 09/13/20 09/13/20 09:07 09:07 11:44 WBC 12.2 H RBC Hgb 10.9 L D Hct 33.7 L D MCV MCH MCHC RDW 18.5 H Plt Count Lymph % (Auto) 7.1 L Hardy % (Auto) Eos % (Auto) Lymph # (Auto) 0.9 L Seg Neutrophils % 89.3 H Seg Neutrophils # 10.8 H PT INR APTT D-Dimer Heparin Anti-Xa Level ABG pH POC ABG pCO2 POC ABG pO2 ABG pO2 ABG HCO3 ABG O2 Saturation ABG Base Excess ABG Hemoglobin ABG Oxyhemoglobin ABG Sodium ABG Potassium ABG Chloride ABG Glucose Carboxyhemoglobin Sodium 160 H Potassium Chloride 121.1 H Carbon Dioxide 34 H BUN 51 H Creatinine Glucose 294 H POC Glucose 283 H Calcium Magnesium Ferritin AST Alkaline Phosphatase Lactate Dehydrogenase C-Reactive Protein Total Protein Albumin Arterial Blood Glucose Arterial Blood Ionized Calcium Urine WBC (Auto) Coronavirus (PCR) Crossmatch 09/13/20 09/13/20 09/14/20 16:45 23:35 04:58 WBC RBC Hgb Hct MCV MCH MCHC RDW Plt Count Lymph % (Auto) Hardy % (Auto) Eos % (Auto) Lymph # (Auto) Seg Neutrophils % Seg Neutrophils # PT INR APTT D-Dimer Heparin Anti-Xa Level ABG pH POC ABG pCO2 POC ABG pO2 63.7 L ABG pO2 ABG HCO3 ABG O2 Saturation ABG Base Excess ABG Hemoglobin 10.2 L ABG Oxyhemoglobin ABG Sodium 149.6 H ABG Potassium ABG Chloride 116.0 H ABG Glucose 341 H Carboxyhemoglobin Sodium Potassium Chloride Carbon Dioxide BUN Creatinine Glucose POC Glucose 265 H 306 H Calcium Magnesium Ferritin AST Alkaline Phosphatase Lactate Dehydrogenase C-Reactive Protein Total Protein Albumin Arterial Blood Glucose 341 H Arterial Blood Ionized Calcium Urine WBC (Auto) Coronavirus (PCR) Crossmatch 09/14/20 09/14/20 09/14/20 05:18 06:25 06:25 WBC 11.2 H RBC 3.20 L Hgb 9.4 L Hct 29.9 L MCV MCH MCHC 31 L RDW 19.6 H Plt Count Lymph % (Auto) Hardy % (Auto) Eos % (Auto) Lymph # (Auto) Seg Neutrophils % Seg Neutrophils # PT INR APTT D-Dimer Heparin Anti-Xa Level ABG pH POC ABG pCO2 POC ABG pO2 ABG pO2 ABG HCO3 ABG O2 Saturation ABG Base Excess ABG Hemoglobin ABG Oxyhemoglobin ABG Sodium ABG Potassium ABG Chloride ABG Glucose Carboxyhemoglobin Sodium 156 H Potassium Chloride 116.4 H Carbon Dioxide BUN 49 H Creatinine Glucose 337 H POC Glucose 272 H Calcium 8.0 L Magnesium Ferritin AST Alkaline Phosphatase Lactate Dehydrogenase C-Reactive Protein Total Protein Albumin Arterial Blood Glucose Arterial Blood Ionized Calcium Urine WBC (Auto) Coronavirus (PCR) Crossmatch 09/14/20 09/14/20 09/14/20 06:25 11:55 16:52 WBC RBC Hgb Hct MCV MCH MCHC RDW Plt Count Lymph % (Auto) Hardy % (Auto) Eos % (Auto) Lymph # (Auto) Seg Neutrophils % Seg Neutrophils # PT 15.9 H INR 1.27 H APTT 68.0 H* D-Dimer Heparin Anti-Xa Level ABG pH POC ABG pCO2 POC ABG pO2 ABG pO2 ABG HCO3 ABG O2 Saturation ABG Base Excess ABG Hemoglobin ABG Oxyhemoglobin ABG Sodium ABG Potassium ABG Chloride ABG Glucose Carboxyhemoglobin Sodium Potassium Chloride Carbon Dioxide BUN Creatinine Glucose POC Glucose 321 H Calcium Magnesium 2.60 H Ferritin AST Alkaline Phosphatase Lactate Dehydrogenase C-Reactive Protein Total Protein Albumin Arterial Blood Glucose Arterial Blood Ionized Calcium Urine WBC (Auto) Coronavirus (PCR) Crossmatch 09/14/20 09/14/20 09/14/20 17:28 23:22 23:32 WBC RBC Hgb Hct MCV MCH MCHC RDW Plt Count Lymph % (Auto) Hardy % (Auto) Eos % (Auto) Lymph # (Auto) Seg Neutrophils % Seg Neutrophils # PT INR APTT D-Dimer Heparin Anti-Xa Level 2.00 H ABG pH POC ABG pCO2 POC ABG pO2 ABG pO2 ABG HCO3 ABG O2 Saturation ABG Base Excess ABG Hemoglobin ABG Oxyhemoglobin ABG Sodium ABG Potassium ABG Chloride ABG Glucose Carboxyhemoglobin Sodium Potassium Chloride Carbon Dioxide BUN Creatinine Glucose POC Glucose 293 H 188 H Calcium Magnesium Ferritin AST Alkaline Phosphatase Lactate Dehydrogenase C-Reactive Protein Total Protein Albumin Arterial Blood Glucose Arterial Blood Ionized Calcium Urine WBC (Auto) Coronavirus (PCR) Crossmatch 09/14/20 09/15/20 09/15/20 Unknown 04:33 05:26 WBC 2.4 L RBC 2.12 L Hgb 7.9 L 6.5 L Hct 24.4 L 20.1 L MCV 95 H MCH MCHC RDW 20.7 H Plt Count 124 L 112 L Lymph % (Auto) Hardy % (Auto) Eos % (Auto) Lymph # (Auto) Seg Neutrophils % Seg Neutrophils # PT INR APTT D-Dimer Heparin Anti-Xa Level ABG pH 7.475 H POC ABG pCO2 POC ABG pO2 44.0 L ABG pO2 ABG HCO3 ABG O2 Saturation ABG Base Excess ABG Hemoglobin 7.5 L ABG Oxyhemoglobin 79 L ABG Sodium 134.7 L ABG Potassium ABG Chloride ABG Glucose 259 H Carboxyhemoglobin 1.8 H Sodium Potassium Chloride Carbon Dioxide BUN Creatinine Glucose POC Glucose Calcium Magnesium Ferritin AST Alkaline Phosphatase Lactate Dehydrogenase C-Reactive Protein Total Protein Albumin Arterial Blood Glucose 259 H Arterial Blood Ionized Calcium 4.4 L Urine WBC (Auto) Coronavirus (PCR) Crossmatch 09/15/20 09/15/20 09/15/20 05:26 05:38 07:58 WBC RBC Hgb Hct MCV MCH MCHC RDW Plt Count Lymph % (Auto) Hardy % (Auto) Eos % (Auto) Lymph # (Auto) Seg Neutrophils % Seg Neutrophils # PT INR APTT D-Dimer Heparin Anti-Xa Level ABG pH POC ABG pCO2 POC ABG pO2 ABG pO2 ABG HCO3 ABG O2 Saturation ABG Base Excess ABG Hemoglobin ABG Oxyhemoglobin ABG Sodium ABG Potassium ABG Chloride ABG Glucose Carboxyhemoglobin Sodium Potassium Chloride Carbon Dioxide BUN 39 H Creatinine Glucose 262 H POC Glucose 216 H 196 H Calcium 7.1 L Magnesium Ferritin AST Alkaline Phosphatase Lactate Dehydrogenase C-Reactive Protein Total Protein 4.7 L Albumin 2.0 L Arterial Blood Glucose Arterial Blood Ionized Calcium Urine WBC (Auto) Coronavirus (PCR) Crossmatch 09/15/20 09/15/20 09/15/20 10:46 12:20 17:47 WBC RBC Hgb Hct MCV MCH MCHC RDW Plt Count Lymph % (Auto) Hardy % (Auto) Eos % (Auto) Lymph # (Auto) Seg Neutrophils % Seg Neutrophils # PT INR APTT D-Dimer Heparin Anti-Xa Level ABG pH POC ABG pCO2 POC ABG pO2 56.8 L ABG pO2 ABG HCO3 ABG O2 Saturation ABG Base Excess ABG Hemoglobin 8.9 L ABG Oxyhemoglobin 87.6 L ABG Sodium 131.0 L ABG Potassium ABG Chloride ABG Glucose 278 H Carboxyhemoglobin Sodium Potassium Chloride Carbon Dioxide BUN Creatinine Glucose POC Glucose 261 H 263 H Calcium Magnesium Ferritin AST Alkaline Phosphatase Lactate Dehydrogenase C-Reactive Protein Total Protein Albumin Arterial Blood Glucose 278 H Arterial Blood Ionized Calcium 4.4 L Urine WBC (Auto) Coronavirus (PCR) Crossmatch 09/15/20 09/15/20 09/16/20 19:15 23:33 04:00 WBC 3.8 L RBC 2.38 L Hgb 7.7 L 7.3 L Hct 23.1 L 22.5 L MCV 95 H MCH MCHC RDW 19.0 H Plt Count 116 L Lymph % (Auto) Hardy % (Auto) Eos % (Auto) Lymph # (Auto) Seg Neutrophils % Seg Neutrophils # PT INR APTT D-Dimer Heparin Anti-Xa Level ABG pH POC ABG pCO2 POC ABG pO2 ABG pO2 ABG HCO3 ABG O2 Saturation ABG Base Excess ABG Hemoglobin ABG Oxyhemoglobin ABG Sodium ABG Potassium ABG Chloride ABG Glucose Carboxyhemoglobin Sodium Potassium Chloride Carbon Dioxide BUN Creatinine Glucose POC Glucose 218 H Calcium Magnesium Ferritin AST Alkaline Phosphatase Lactate Dehydrogenase C-Reactive Protein Total Protein Albumin Arterial Blood Glucose Arterial Blood Ionized Calcium Urine WBC (Auto) Coronavirus (PCR) Crossmatch 09/16/20 09/16/20 09/16/20 04:00 05:24 08:10 WBC RBC Hgb Hct MCV MCH MCHC RDW Plt Count Lymph % (Auto) Hardy % (Auto) Eos % (Auto) Lymph # (Auto) Seg Neutrophils % Seg Neutrophils # PT INR APTT D-Dimer Heparin Anti-Xa Level ABG pH POC ABG pCO2 POC ABG pO2 54.8 L ABG pO2 ABG HCO3 ABG O2 Saturation ABG Base Excess ABG Hemoglobin ABG Oxyhemoglobin ABG Sodium ABG Potassium 3.2 L ABG Chloride 108.0 H ABG Glucose 172 H Carboxyhemoglobin Sodium Potassium 3.1 L Chloride 108.5 H Carbon Dioxide BUN 31 H Creatinine Glucose 152 H POC Glucose 147 H Calcium 6.8 L Magnesium Ferritin AST Alkaline Phosphatase Lactate Dehydrogenase C-Reactive Protein Total Protein 4.3 L Albumin 1.9 L Arterial Blood Glucose 172 H Arterial Blood Ionized Calcium Urine WBC (Auto) Coronavirus (PCR) Crossmatch 09/16/20 09/16/20 11:39 13:15 WBC RBC Hgb Hct MCV MCH MCHC RDW Plt Count Lymph % (Auto) Hardy % (Auto) Eos % (Auto) Lymph # (Auto) Seg Neutrophils % Seg Neutrophils # PT INR APTT D-Dimer Heparin Anti-Xa Level ABG pH POC ABG pCO2 POC ABG pO2 ABG pO2 ABG HCO3 ABG O2 Saturation ABG Base Excess ABG Hemoglobin ABG Oxyhemoglobin ABG Sodium ABG Potassium ABG Chloride ABG Glucose Carboxyhemoglobin Sodium Potassium Chloride Carbon Dioxide BUN Creatinine Glucose POC Glucose 197 H Calcium Magnesium Ferritin AST Alkaline Phosphatase Lactate Dehydrogenase C-Reactive Protein Total Protein Albumin Arterial Blood Glucose Arterial Blood Ionized Calcium Urine WBC (Auto) Coronavirus (PCR) Crossmatch See Detail Chest x-ray: other (none today) Allied health notes reviewed: nursing
--- NOTE | 2020-09-16 15:45 | Progress Note ---
Assessment and Plan 1. Anemia - etiology of persistently declining Hgb is unclear. This could be multifactorial due to other losses, ie - foot or hematuria. Also, component related to phlebotomy losses, and decreased production due to illness. No clear alysia GI bleed, though he is Heme +. That could be due to gastric erosions from NGT, or from fecal tube or stress related. No indication of sufficient bleed to account for dramatic drop in Hgb yesterday. - no plans for endoscopy at present - empiric PPI - consider risk/benefit of IV heparin and Plavix and stop if feasible Subjective Date of service: 09/16/20 Principal diagnosis: Ac hypoxemic resp failure; COVID-19; Pneumonia; Sepsis; PVD; L. foot ulcer Interval history: No significant change. Pt intubated, on pressors, with NGT and rectal tube in place. Liquid brown stool in rectal bag. Objective - Constitutional Vitals: Vital Signs - 12hr 09/16/20 09/16/20 09/16/20 03:45 04:00 04:01 Temperature Pulse Rate 180 H 148 H Pulse Rate [ From Monitor] Respiratory 22 Rate Blood Pressure 121/52 110/56 O2 Sat by Pulse 90 93 90 Oximetry 09/16/20 09/16/20 09/16/20 04:15 04:31 04:45 Temperature Pulse Rate 168 H 150 H 134 H Pulse Rate [ From Monitor] Respiratory 24 22 23 Rate Blood Pressure 95/48 142/62 113/47 O2 Sat by Pulse 89 89 91 Oximetry 09/16/20 09/16/20 09/16/20 05:01 05:15 05:31 Temperature Pulse Rate 165 H 132 H 127 H Pulse Rate [ From Monitor] Respiratory 26 H 21 22 Rate Blood Pressure 100/49 100/49 94/46 O2 Sat by Pulse 91 90 91 Oximetry 09/16/20 09/16/20 09/16/20 05:46 06:00 06:04 Temperature Pulse Rate 142 H 144 H 117 H Pulse Rate [ From Monitor] Respiratory 21 22 Rate Blood Pressure 105/45 103/52 105/45 O2 Sat by Pulse 91 91 92 Oximetry 09/16/20 09/16/20 09/16/20 06:15 06:31 06:45 Temperature Pulse Rate 140 H 163 H 126 H Pulse Rate [ From Monitor] Respiratory 22 21 23 Rate Blood Pressure 103/52 87/42 107/59 O2 Sat by Pulse 90 90 90 Oximetry 09/16/20 09/16/20 09/16/20 07:00 07:15 07:31 Temperature Pulse Rate 147 H 130 H 180 H Pulse Rate [ From Monitor] Respiratory 20 23 22 Rate Blood Pressure 101/44 101/44 110/43 O2 Sat by Pulse 90 91 91 Oximetry 09/16/20 09/16/20 09/16/20 07:45 07:58 08:00 Temperature 102.6 F H Pulse Rate 129 H 130 H 140 H Pulse Rate [ 152 H From Monitor] Respiratory 19 23 Rate Blood Pressure 110/43 100/39 O2 Sat by Pulse 91 92 92 Oximetry 09/16/20 09/16/20 09/16/20 08:01 08:15 08:31 Temperature Pulse Rate 152 H 152 H 120 H Pulse Rate [ From Monitor] Respiratory 22 21 22 Rate Blood Pressure 126/54 126/54 109/53 O2 Sat by Pulse 92 94 93 Oximetry 09/16/20 09/16/20 09/16/20 08:45 09:01 09:15 Temperature Pulse Rate 174 H 157 H 126 H Pulse Rate [ From Monitor] Respiratory 21 20 21 Rate Blood Pressure 109/53 111/52 111/52 O2 Sat by Pulse 93 93 90 Oximetry 09/16/20 09/16/20 09/16/20 09:20 09:23 09:31 Temperature Pulse Rate 154 H 124 H 138 H Pulse Rate [ From Monitor] Respiratory 20 Rate Blood Pressure 105/42 125/84 O2 Sat by Pulse 91 Oximetry 09/16/20 09/16/20 09/16/20 09:45 10:01 10:15 Temperature Pulse Rate 93 H 101 H 74 Pulse Rate [ From Monitor] Respiratory 19 18 20 Rate Blood Pressure 125/84 98/42 99/44 O2 Sat by Pulse 90 90 91 Oximetry 09/16/20 09/16/20 09/16/20 10:30 10:45 11:00 Temperature Pulse Rate 71 71 70 Pulse Rate [ From Monitor] Respiratory 20 19 16 Rate Blood Pressure 91/43 96/51 98/51 O2 Sat by Pulse 90 88 91 Oximetry 09/16/20 09/16/20 09/16/20 11:15 11:28 11:31 Temperature Pulse Rate 72 71 75 Pulse Rate [ From Monitor] Respiratory 18 21 Rate Blood Pressure 104/52 104/52 102/50 O2 Sat by Pulse 91 94 92 Oximetry 09/16/20 09/16/20 09/16/20 11:45 12:00 12:15 Temperature 97.3 F L Pulse Rate 91 H 91 H 87 Pulse Rate [ 91 H From Monitor] Respiratory 19 22 20 Rate Blood Pressure 103/46 96/48 104/43 O2 Sat by Pulse 93 94 93 Oximetry 09/16/20 09/16/20 09/16/20 12:30 12:45 13:00 Temperature Pulse Rate 83 77 93 H Pulse Rate [ From Monitor] Respiratory 21 20 22 Rate Blood Pressure 92/43 91/52 113/49 O2 Sat by Pulse 94 96 96 Oximetry 09/16/20 09/16/20 09/16/20 13:15 13:30 13:45 Temperature Pulse Rate 87 89 101 H Pulse Rate [ From Monitor] Respiratory 20 22 22 Rate Blood Pressure 114/47 110/51 110/51 O2 Sat by Pulse 94 92 92 Oximetry 09/16/20 09/16/20 09/16/20 14:00 15:10 15:25 Temperature 98.9 F 99 F Pulse Rate 117 H 100 H 109 H Pulse Rate [ From Monitor] Respiratory 20 22 22 Rate Blood Pressure 128/59 130/48 116/49 O2 Sat by Pulse 90 93 91 Oximetry General appearance: Present: no acute distress, other (intubated. Eyes open and regarding nurse.) - EENT Eyes: PERRL, EOM intact - Gastrointestinal General gastrointestinal: Present: soft, non-tender, hernia (umbilical, nontender, ~ 5 cm) - Labs CBC & Chem 7: 09/16/20 04:00 09/16/20 08:10 Labs: Abnormal lab results 09/15/20 09/15/20 09/15/20 Range/Units 17:47 19:15 23:33 WBC (4.5-11.0) K/mm3 RBC (3.65-5.03) M/mm3 Hgb 7.7 L (11.8-15.2) gm/dl Hct 23.1 L (35.5-45.6) % MCV (84-94) fl RDW (13.2-15.2) % Plt Count (140-440) K/mm3 POC ABG pO2 (83-108) mmHg ABG Potassium (3.40-4.50) mmol/L ABG Chloride (98-107) mmol/L ABG Glucose (65-95) mg/dL Potassium (3.6-5.0) mmol/L Chloride (98-107) mmol/L BUN (9-20) mg/dL Glucose (75-100) mg/dL POC Glucose 263 H 218 H (70-105) mg/dL Calcium (8.4-10.2) mg/dL Total Protein (6.3-8.2) g/dL Albumin (3.9-5) g/dL Arterial Blood Glucose (65-95) mg/dL Crossmatch 09/16/20 09/16/20 09/16/20 Range/Units 04:00 04:00 05:24 WBC 3.8 L (4.5-11.0) K/mm3 RBC 2.38 L (3.65-5.03) M/mm3 Hgb 7.3 L (11.8-15.2) gm/dl Hct 22.5 L (35.5-45.6) % MCV 95 H (84-94) fl RDW 19.0 H (13.2-15.2) % Plt Count 116 L (140-440) K/mm3 POC ABG pO2 54.8 L (83-108) mmHg ABG Potassium 3.2 L (3.40-4.50) mmol/L ABG Chloride 108.0 H (98-107) mmol/L ABG Glucose 172 H (65-95) mg/dL Potassium (3.6-5.0) mmol/L Chloride (98-107) mmol/L BUN (9-20) mg/dL Glucose (75-100) mg/dL POC Glucose 147 H (70-105) mg/dL Calcium (8.4-10.2) mg/dL Total Protein (6.3-8.2) g/dL Albumin (3.9-5) g/dL Arterial Blood Glucose 172 H (65-95) mg/dL Crossmatch 09/16/20 09/16/20 09/16/20 Range/Units 08:10 11:39 13:15 WBC (4.5-11.0) K/mm3 RBC (3.65-5.03) M/mm3 Hgb (11.8-15.2) gm/dl Hct (35.5-45.6) % MCV (84-94) fl RDW (13.2-15.2) % Plt Count (140-440) K/mm3 POC ABG pO2 (83-108) mmHg ABG Potassium (3.40-4.50) mmol/L ABG Chloride (98-107) mmol/L ABG Glucose (65-95) mg/dL Potassium 3.1 L (3.6-5.0) mmol/L Chloride 108.5 H (98-107) mmol/L BUN 31 H (9-20) mg/dL Glucose 152 H (75-100) mg/dL POC Glucose 197 H (70-105) mg/dL Calcium 6.8 L (8.4-10.2) mg/dL Total Protein 4.3 L (6.3-8.2) g/dL Albumin 1.9 L (3.9-5) g/dL Arterial Blood Glucose (65-95) mg/dL Crossmatch See Detail Medications & Allergies - Medications Allergies/Adverse Reactions: Allergies Penicillins Allergy (Verified 07/16/20 22:49) Hives Home Medications: Home Medications Medication Instructions Recorded Confirmed Last Taken Type AtorvaSTATin [Lipitor] 40 mg PO QHS 07/17/20 08/15/20 Unknown History Clopidogrel [Plavix] 75 mg PO QDAY 07/17/20 08/15/20 Unknown History Folic Acid [Folvite] 1 mg PO QDAY 07/17/20 08/15/20 Unknown History Metoprolol [Lopressor TAB] 50 mg PO BID 07/17/20 08/15/20 Unknown History Thiamine [Vitamin B-1] 100 mg PO QDAY 07/17/20 08/15/20 Unknown History Pantoprazole [Protonix TAB] 40 mg PO QDAC #30 tablet 08/06/20 08/15/20 Unknown Rx amLODIPine 10 mg PO QDAY #30 tablet 08/06/20 08/15/20 Unknown Rx cilostazoL [Pletal] 100 mg PO BID #60 tablet 08/06/20 08/15/20 Unknown Rx levoFLOXacin [Levaquin TAB] 750 mg PO DAILY #5 tablet 08/06/20 08/15/20 Unknown Rx oxyCODONE /ACETAMINOPHEN [Percocet 1 tab PO Q4H PRN #14 tablet 08/06/20 08/15/20 Unknown Rx 5/325 mg] Active Medications: Generic Name Dose Route Start Last Admin Trade Name Freq PRN Reason Stop Dose Admin Acetaminophen 650 mg 08/15/20 18:13 09/16/20 07:40 Acetaminophen 325 Mg Tab PO 650 mg Q4H PRN Administration Pain MILD(1-3)/Fever >100.5/REYES Albuterol 2.5 mg 08/15/20 18:13 08/20/20 12:53 Albuterol 2.5 Mg/3 Ml Nebu IH 2.5 mg Q4HRT PRN Administration Shortness Of Breath Amlodipine Besylate 10 mg 08/16/20 10:00 09/16/20 09:23 Amlodipine 10 Mg Tab PO Not Given QDAY DELFINO Lipase/Protease/Amylase 1 each 09/13/20 19:28 Lipase 10,500/Protease 25,000/Amylase 43,750 (Units) Dr Cap FEEDTUBE PRN PRN For Clogged Feeding Tube Ascorbic Acid 500 mg 09/03/20 22:00 09/16/20 09:16 Ascorbic Acid 500 Mg Tab PO 500 mg BID DELFINO Administration Atorvastatin Calcium 40 mg 08/15/20 22:00 09/15/20 21:41 Atorvastatin 40 Mg Tab PO 40 mg QHS DELFINO Administration Cilostazol 100 mg 08/15/20 22:00 09/16/20 09:16 Cilostazol 100 Mg Tab PO 100 mg BID DELFINO Administration Dextrose 50 ml 09/10/20 13:56 Dextrose 50% In Water (25gm) 50 Ml Syringe IV Q30MIN PRN Hypoglycemia Protocol Fentanyl 50 mcg 09/05/20 05:23 09/16/20 07:47 Fentanyl 100 Mcg/2 Ml Inj IV 50 mcg Q10MIN PRN Administration ANALGESIA Folic Acid 1 mg 08/16/20 10:00 09/16/20 09:16 Folic Acid 1 Mg Tab PO 1 mg QDAY DELFINO Administration Hydrophilic Ointment 1 applic 09/05/20 05:23 Lip Therapy Vaseline TP Q2HR PRN Dry Lips Norepinephrine 4 mg in 250 mls @ 7.5 mls/hr 09/02/20 15:00 09/16/20 12:36 Levophed Drip 4 Mg/Ns 250 Ml IV 10 mcg/min TITR DELFINO 37.5 mls/hr Titration Protocol 2 MCG/MIN Vasopressin 20 unit/ Sodium 101 mls @ 9.09 mls/hr 09/02/20 16:00 09/14/20 21:55 Chloride IV 0 units/min TITR DELFINO 0 mls/hr Titration Protocol 0.03 UNITS/MIN Fentanyl Citrate 2,000 mcg in 100 mls @ 4.465 mls/hr 09/05/20 06:00 09/11/20 19:07 Fentanyl Drip Premix IV 0 mcg/kg/hr TITR DELFINO 0 mls/hr Titration Protocol 1 MCG/KG/HR Midazolam HCl 100 mg/ Sodium 100 mls @ 2 mls/hr 09/05/20 06:00 09/06/20 08:30 Chloride IV 0 mg/hr TITR DELFINO 0 mls/hr Titration Protocol 2 MG/HR Dextrose 1,000 mls @ 100 mls/hr 09/13/20 20:00 09/15/20 05:29 D5w IV 09/17/20 05:59 100 mls/hr DIRECT DELFINO Administration Levofloxacin/Dextrose 750 mg in 150 mls @ 100 mls/hr 09/14/20 10:00 09/16/20 09:17 Levaquin 750mg/150ml IV 09/17/20 09:59 100 mls/hr Q24H DELFINO Administration Protocol Amiodarone HCl 900 mg/ 500 mls @ 33.333 mls/hr 09/14/20 13:30 09/16/20 14:44 Dextrose IV 1 mg/min DIRECT DELFINO 33.333 mls/hr Administration Protocol 1 MG/MIN Sodium Chloride 500 mls @ 0 mls/hr 09/16/20 09:30 09/16/20 14:42 Nacl 0.9% 500 Ml IV 09/16/20 23:59 10 mls/hr ONCE NR Administration As Directed Insulin Glargine 30 units 09/15/20 17:00 09/16/20 07:41 Insulin Glargine 100 Units/Ml SUB-Q 30 units BIDDIAB DELFINO Administration Insulin Human Lispro 0 unit 09/10/20 18:00 09/16/20 12:37 Insulin Lispro 100 Unit/Ml Vial 3 Ml SUB-Q 3 unit Q6H DELFINO Administration Protocol Loperamide HCl 2 mg 08/26/20 23:00 08/28/20 12:51 Loperamide 2 Mg Cap PO 2 mg PRN PRN Administration Diarrhea Lorazepam 1 mg 09/06/20 17:25 09/14/20 04:13 Lorazepam 2 Mg/Ml Vial IV 1 mg Q4H PRN Administration Anxiety Metoprolol Tartrate 50 mg 08/15/20 22:00 09/16/20 09:20 Metoprolol Tartrate 50 Mg Tab PO 50 mg BID DELFINO Administration Midazolam HCl 2 mg 09/05/20 05:23 09/05/20 05:56 Midazolam 2 Mg/2 Ml Inj IV 2 mg Q10MIN PRN Administration Sedation Multi-Ingred Cream/Lotion/Oil/Oint 1 applic 09/05/20 05:23 Mineral Oil/Petrolatum, White Ophth Oint 3.5 Gm OU Q4HR PRN Dry Eye(s) Ondansetron HCl 4 mg 08/15/20 18:13 08/18/20 17:46 Ondansetron 4 Mg/2 Ml Inj IV 4 mg Q8H PRN Administration Nausea And Vomiting Pantoprazole Sodium 40 mg 09/15/20 17:00 09/16/20 09:16 Pantoprazole 40 Mg Inj IV 40 mg QDAY DELFINO Administration Simple Syrup 15 ml 09/13/20 19:28 Simple Syrup 15 Ml FEEDTUBE PRN PRN Hypoglycemia Simple Syrup 30 ml 09/13/20 19:28 Simple Syrup 15 Ml FEEDTUBE PRN PRN Hypoglycemia Sodium Bicarbonate 325 mg 09/13/20 19:28 Sodium Bicarbonate 325 Mg Tab FEEDTUBE PRN PRN For Clogged Feeding Tube Sodium Chloride 10 ml 08/15/20 22:00 09/16/20 09:17 Sodium Chloride 0.9% 10 Ml Flush Syringe IV 10 ml BID DELFINO Administration Sodium Chloride 10 ml 08/15/20 18:13 Sodium Chloride 0.9% 10 Ml Flush Syringe IV PRN PRN LINE FLUSH Tamsulosin HCl 0.4 mg 09/14/20 22:00 09/15/20 21:41 Tamsulosin 0.4 Mg Cap PO 0.4 mg QHS DELFINO Administration Thiamine HCl 100 mg 08/16/20 10:00 09/16/20 09:16 Thiamine 100 Mg Tab PO 100 mg QDAY DELFINO Administration Zinc Sulfate 220 mg 09/03/20 22:00 09/16/20 09:16 Zinc Sulfate 220 Mg Cap PO 220 mg BID DELFINO Administration
[2020-09-16] MEDS: VASOPRESSIN 20 UNIT in SODIUM CHLORIDE 0.9% 100 ML IV SCH (17:17)
--- NOTE | 2020-09-16 19:19 | Progress Note ---
Assessment and Plan Cultures: 08/16/2020 SARS CoV2 PCR: Negative 08/29/2020 SARS CoV2 PCR: Positive 08/15/2020 urine culture: No growth 08/24/2020 blood culture: No growth 08/28/2020 blood culture: No growth 08/28/2020 urine culture: No growth MRSA PCR negative 09/05/2020 Sputum +Barby A/P: 64-year-old male with hypertension, coronary artery disease, peripheral vascular disease, gout, alcohol dependence was admitted to the hospital on 08/15/2020 due to bleeding from his left foot which is a site of a previous surgery. Patient was noted to have wound dehiscence complicated by wound necrosis. Was seen by vascular surgery. He underwent a TMA. Due to fever, patient was receiving IV levofloxacin for UTI. COVID-19 test done on 08/29/2020 for placement reasons came back positive. Patient has been having intermittent fevers since 08/28/2020. 09/02/2020, a code MET was called due to tachypnea and labored respirations: #Shock: Probably from severe COVID-19. Noted low grade fever overnight #Critical COVID-19 Pneumonia: Patient with severe hypoxia, elevated inflammatory markers. Initially completed levofloxacin. Sputum with barby, likely a colonizer. Markers improving. S/p empiric 8 days of aztreonam and vanco #Acute hypoxic respiratory failure: remains intubated improving FIO2=40/p8 #Peripheral vascular disease, wound dehiscence and necrosis: underwent TMA by vascular surgery now with wound VAC/wound matrix/graft bone exposed. #Coronary artery disease, CHF #DM: uncontrolled with hyperglycemia. #Severe anemia: per ICU team #CAUTI: new UA c/w UTI Recs: -Ordered urinalysis, does not appear was collected. -start levaquin x 3 days -monitor anemia/evaluation -Completed steroids -Completed remdesivir -continue wound care -monitor fever Tara Stockton MD [facility] ([facility] O: [phone] F: [phone] Subjective Date of service: 09/16/20 Principal diagnosis: Ac hypoxemic resp failure; COVID-19; Pneumonia; Sepsis; PVD; L. foot ulcer Interval history: Febrile to 100.5 with a white count of 3.8. Remains mechanically ventilated Objective - Exam Narrative Exam: Physical Exam (reviewed in chart to minimize risk of transmission) Constitutional: deferred Head, Ears, Nose: deferred Eyes: deferred Neck: deferred Oral: deferred Cardiovascular: deferred Respiratory: deferred GI: deferred Musculoskeletal: deferred Skin: deferred Hem/Lymphatic: deferred Psych: deferred Neurological: deferred - Constitutional Vitals: Vital Signs Temp Pulse Resp BP Pulse Ox 100.5 F H 87 16 114/49 95 09/16/20 17:41 09/16/20 19:01 09/16/20 19:01 09/16/20 19:01 09/16/20 19:01 Temperature -Last 24 Hours Temperature 100.5 F Temperature 100.4 F Temperature 99.8 F Temperature 99.8 F Temperature 99 F Temperature 99 F Temperature 99 F Temperature 98.9 F Temperature 97.3 F Temperature 102.6 F Temperature 100.8 F Temperature 100.9 F Temperature 100.9 F - Labs CBC & Chem 7: 09/16/20 04:00 09/16/20 08:10 Labs: Abnormal lab results 09/15/20 09/15/20 09/16/20 Range/Units 19:15 23:33 04:00 WBC 3.8 L (4.5-11.0) K/mm3 RBC 2.38 L (3.65-5.03) M/mm3 Hgb 7.7 L 7.3 L (11.8-15.2) gm/dl Hct 23.1 L 22.5 L (35.5-45.6) % MCV 95 H (84-94) fl RDW 19.0 H (13.2-15.2) % Plt Count 116 L (140-440) K/mm3 POC ABG pO2 (83-108) mmHg ABG Potassium (3.40-4.50) mmol/L ABG Chloride (98-107) mmol/L ABG Glucose (65-95) mg/dL Potassium (3.6-5.0) mmol/L Chloride (98-107) mmol/L BUN (9-20) mg/dL Glucose (75-100) mg/dL POC Glucose 218 H (70-105) mg/dL Calcium (8.4-10.2) mg/dL Total Protein (6.3-8.2) g/dL Albumin (3.9-5) g/dL Arterial Blood Glucose (65-95) mg/dL Crossmatch 09/16/20 09/16/20 09/16/20 Range/Units 04:00 05:24 08:10 WBC (4.5-11.0) K/mm3 RBC (3.65-5.03) M/mm3 Hgb (11.8-15.2) gm/dl Hct (35.5-45.6) % MCV (84-94) fl RDW (13.2-15.2) % Plt Count (140-440) K/mm3 POC ABG pO2 54.8 L (83-108) mmHg ABG Potassium 3.2 L (3.40-4.50) mmol/L ABG Chloride 108.0 H (98-107) mmol/L ABG Glucose 172 H (65-95) mg/dL Potassium 3.1 L (3.6-5.0) mmol/L Chloride 108.5 H (98-107) mmol/L BUN 31 H (9-20) mg/dL Glucose 152 H (75-100) mg/dL POC Glucose 147 H (70-105) mg/dL Calcium 6.8 L (8.4-10.2) mg/dL Total Protein 4.3 L (6.3-8.2) g/dL Albumin 1.9 L (3.9-5) g/dL Arterial Blood Glucose 172 H (65-95) mg/dL Crossmatch 09/16/20 09/16/20 09/16/20 Range/Units 11:39 13:15 17:29 WBC (4.5-11.0) K/mm3 RBC (3.65-5.03) M/mm3 Hgb (11.8-15.2) gm/dl Hct (35.5-45.6) % MCV (84-94) fl RDW (13.2-15.2) % Plt Count (140-440) K/mm3 POC ABG pO2 (83-108) mmHg ABG Potassium (3.40-4.50) mmol/L ABG Chloride (98-107) mmol/L ABG Glucose (65-95) mg/dL Potassium (3.6-5.0) mmol/L Chloride (98-107) mmol/L BUN (9-20) mg/dL Glucose (75-100) mg/dL POC Glucose 197 H 253 H (70-105) mg/dL Calcium (8.4-10.2) mg/dL Total Protein (6.3-8.2) g/dL Albumin (3.9-5) g/dL Arterial Blood Glucose (65-95) mg/dL Crossmatch See Detail
[2020-09-16] MEDS: TAMSULOSIN 0.4 MG CAP PO SCH (21:42)
[2020-09-16 22:40] LABS: Bilirubin,Urine NEG (Negative); Blood,Urine MOD (Negative); Color,Urine Yellow (Yellow); Mucus,Urine FEW /HPF
[2020-09-17] MEDS: fentaNYL 100 MCG/2 ML INJ IV PRN (02:22)
[2020-09-17] MEDS: AMIODARONE 900 MG in DEXTROSE 5% IN WATER 482 ML IV SCH ×2 (05:11→19:08)
--- NOTE | 2020-09-17 05:11 | Progress Note ---
Assessment and Plan Acute hypoxemic respiratory failure, on mechanical ventilatory support. COVID-19 infection. Bilateral pneumonia versus pulmonary edema. Severe sepsis with shock. Peripheral vascular disease. Anemia that is microcytic. History of alcohol abuse. Acute encephalopathy. History of obesity. History of coronary artery disease. History of gout. Hyperlipidemia. Hypertension, now hypotensive. Left lower extremity / left foot ulcer. - continue to hold anticoagulation, trend H&H -Supportive transfusions for HgB <7g/dL - GI evaluation ongoing - continue to wean vasopressors for target MAP > 65 mmHg - continue Amiodarone drip - cardiology evaluation ongoing - continue to wean supplemental oxygen for target O2 sat > 92% - VAP bundle addressed, aspiration precautions HOB >40 - continue lung protective strategies - continue bronchodilators with pulmonary hygiene per RT - wean per pulmonary driven protocols otherwise - continue accuchecks with glycemic control per SSI (While critically ill target blood glucose of 140-180 mg/dL; avoid hypoglycemia) - avoid nephrotoxins, renally dose all medications - avoid benzodiazepines, reduce the possibility of delirium - complete ABs per ID - prn analgesia per CPOT score - Maintenance of sleep-wake cycle, avoid delirium - Stress ulcer prophylaxis - PT/OT/ROM exercises - continue mobility protocols for pressure ulcer prophylaxis - Monitor hemodynamics closely - continue other care per attending / other consultants COVID SPECIFIC INTERVENTIONS - completed Remdesivir as per ID/Pulmonary developed protocols - continue systemic steroids for severe COVID-19 infection empirically - Monitor inflammatory markers per facility protocol - therapeutic anticoagulation per system Protocol based on d-dimer and clinical considerations - Continue contact and airborne isolation CONDITION: CRITICAL PROGNOSIS: GUARDED-GRAVE CODE STATUS: FULL CODE The high probability of a clinically significant, sudden or life-threatening deterioration of the [respiratory, cardiovascular, renal & neurologic] system(s) required my full and direct attention, intervention and personal management. The aggregate critical care time was [33] minutes without overlap. Time includes spent on; [x] Data Review and interpretation [x] Patient assessment and monitoring of vital signs [x] Documentation [x] Medication orders and management Subjective Date of service: 09/17/20 Principal diagnosis: Ac hypoxemic resp failure; COVID-19; Pneumonia; Sepsis; PVD; L. foot ulcer Interval history: Patient is seen today for: Acute hypoxemic respiratory failure; COVID-19 infection; Bilateral pneumonia versus pulmonary edema; Severe sepsis with shock; Peripheral vascular disease; Acute encephalopathy; Left lower extremity / left foot ulcer. Seen and examined at bedside; 24hour events reviewed; nursing and respiratory care staff consulted; no adverse overnight events reported to me; in mild respiratory distress, remains on MVS; s/p PRBCs transfusion remains on amiodarone as well as levophed infusions. On going agitation, with desaturations overnight with a need to increase FIO2 to 80% remains on a PEEP of 14 Objective Vital Signs - 12hr 09/16/20 09/16/20 09/16/20 17:15 17:25 17:31 Temperature 100.4 F H Pulse Rate 106 H 97 H 93 H Respiratory 16 22 24 Rate Blood Pressure 124/54 129/50 123/51 O2 Sat by Pulse 95 96 96 Oximetry 09/16/20 09/16/20 09/16/20 17:41 17:45 18:00 Temperature 100.5 F H Pulse Rate 96 H 118 H 103 H Respiratory 22 20 19 Rate Blood Pressure 123/51 117/55 121/52 O2 Sat by Pulse 95 92 95 Oximetry 09/16/20 09/16/20 09/16/20 18:15 18:30 18:45 Temperature Pulse Rate 95 H 102 H 97 H Respiratory 16 15 17 Rate Blood Pressure 115/46 106/48 115/49 O2 Sat by Pulse 94 95 94 Oximetry 09/16/20 09/16/20 09/16/20 19:01 19:15 19:30 Temperature Pulse Rate 87 88 99 H Respiratory 16 15 19 Rate Blood Pressure 114/49 123/56 116/49 O2 Sat by Pulse 95 95 92 Oximetry 09/16/20 09/16/20 09/16/20 19:45 20:00 20:01 Temperature 99.9 F H Pulse Rate 113 H 80 Respiratory 23 22 Rate Blood Pressure 109/52 105/48 O2 Sat by Pulse 94 96 97 Oximetry 09/16/20 09/16/20 09/16/20 20:15 20:28 20:31 Temperature Pulse Rate 94 H 103 H 93 H Respiratory 14 19 Rate Blood Pressure 120/47 114/49 114/49 O2 Sat by Pulse 96 94 94 Oximetry 09/16/20 09/16/20 09/16/20 20:45 21:00 21:14 Temperature Pulse Rate 105 H 98 H 100 H Respiratory 15 17 Rate Blood Pressure 114/49 118/56 O2 Sat by Pulse 95 94 Oximetry 09/16/20 09/16/20 09/16/20 21:15 21:31 21:45 Temperature Pulse Rate 93 H 103 H 108 H Respiratory 16 15 17 Rate Blood Pressure 122/53 108/45 118/38 O2 Sat by Pulse 96 96 96 Oximetry 09/16/20 09/16/20 09/16/20 22:00 22:15 22:30 Temperature Pulse Rate 94 H 85 92 H Respiratory 16 15 14 Rate Blood Pressure 121/73 127/65 140/56 O2 Sat by Pulse 97 96 94 Oximetry 09/16/20 09/16/20 09/16/20 22:45 23:01 23:09 Temperature Pulse Rate 87 92 H 98 H Respiratory 15 15 19 Rate Blood Pressure 140/56 150/51 150/51 O2 Sat by Pulse 95 94 95 Oximetry 09/16/20 09/16/20 09/16/20 23:15 23:31 23:45 Temperature Pulse Rate 100 H 111 H 103 H Respiratory 17 19 17 Rate Blood Pressure 150/51 148/56 143/52 O2 Sat by Pulse 95 93 94 Oximetry 09/17/20 09/17/20 09/17/20 00:00 00:01 00:15 Temperature 100.1 F H Pulse Rate 98 H 117 H Respiratory 20 18 Rate Blood Pressure 145/50 145/50 O2 Sat by Pulse 90 94 92 Oximetry 09/17/20 09/17/20 09/17/20 00:31 00:45 01:00 Temperature Pulse Rate 109 H 137 H 162 H Respiratory 21 24 21 Rate Blood Pressure 154/49 164/53 155/59 O2 Sat by Pulse 89 85 83 L Oximetry 09/17/20 09/17/20 09/17/20 01:15 01:25 01:31 Temperature Pulse Rate 124 H 132 H Respiratory 24 21 Rate Blood Pressure 155/59 127/48 O2 Sat by Pulse 82 L 93 94 Oximetry 09/17/20 09/17/20 09/17/20 01:45 02:00 02:15 Temperature Pulse Rate 143 H 179 H 188 H Respiratory 20 24 25 H Rate Blood Pressure 127/48 114/37 127/28 O2 Sat by Pulse 94 94 94 Oximetry 09/17/20 09/17/20 09/17/20 02:31 02:45 02:57 Temperature 100.3 F H Pulse Rate 178 H 151 H Respiratory 21 24 Rate Blood Pressure 112/46 120/49 O2 Sat by Pulse 94 90 Oximetry 09/17/20 09/17/20 09/17/20 03:01 03:15 03:30 Temperature Pulse Rate 127 H 104 H 120 H Respiratory 18 19 23 Rate Blood Pressure 120/49 102/38 112/43 O2 Sat by Pulse 90 91 91 Oximetry 09/17/20 09/17/20 09/17/20 03:45 04:01 04:15 Temperature Pulse Rate 122 H 143 H 164 H Respiratory 20 22 18 Rate Blood Pressure 119/37 123/37 115/38 O2 Sat by Pulse 92 92 91 Oximetry 09/17/20 09/17/20 09/17/20 04:31 04:45 04:52 Temperature Pulse Rate 117 H 152 H 126 H Respiratory 16 17 Rate Blood Pressure 106/41 123/37 106/46 O2 Sat by Pulse 91 92 93 Oximetry 09/17/20 05:01 Temperature Pulse Rate 165 H Respiratory 18 Rate Blood Pressure 105/47 O2 Sat by Pulse 92 Oximetry Constitutional: appears uncomfortable, other (elderly obese male without increas ed respiratory effort at rest on MVS) Eyes: non-icteric ENT: oropharynx moist, other (ETT 24 cm MONICA) Neck: supple, no lymphadenopathy, no JVD Effort: mildly labored Ascultation: Bilateral: diminished breath sounds, rales, rhonchi Percussion: Bilateral: not dull Cardiovascular: irregular rhythm, other (S1,S2) Gastrointestinal: normoactive bowel sounds, soft, non-tender, non-distended (protuberant) Integumentary: normal (in areas i examined; please see [facility] notes for full d escription) Extremities: no cyanosis, pink and warm, pulses normal, no ischemia or petechiae, other (left foot diabetic ulcer) Neurologic: pupils equal and round, unable to assess Psychiatric: other (unable to assess) CBC and BMP: 09/18/20 04:00 09/18/20 04:00 ABG, PT/INR, D-dimer: ABG ABG pH 7.445 (7.320-7.450) 09/16/20 04:00 POC ABG pCO2 39.1 mmHg (32.0-48.0) 09/16/20 04:00 ABG pCO2 48.6 mm Hg 09/12/20 03:40 POC ABG pO2 54.8 mmHg (83-108) L 09/16/20 04:00 ABG pO2 77.1 mm Hg (80.0-90.0) L 09/12/20 03:40 POC ABG HCO3 26.3 09/16/20 04:00 ABG O2 Saturation 97.2 % (95.0-99.0) 09/12/20 03:40 PT/INR, D-dimer PT 15.9 Sec. (12.2-14.9) H 09/14/20 16:52 INR 1.27 (0.87-1.13) H 09/14/20 16:52 D-Dimer 1449.12 ng/mlDDU (0-234) H 09/08/20 19:15 Abnormal lab findings: Abnormal Labs 08/15/20 08/15/20 08/15/20 08:49 10:40 10:40 WBC RBC 2.96 L Hgb 9.0 L Hct 25.8 L MCV MCH MCHC 35 H RDW 16.2 H Plt Count Lymph % (Auto) [place] % (Auto) Eos % (Auto) Lymph # (Auto) Seg Neutrophils % Seg Neutrophils # PT INR APTT D-Dimer Heparin Anti-Xa Level ABG pH POC ABG pCO2 POC ABG pO2 ABG pO2 ABG HCO3 ABG O2 Saturation ABG Base Excess ABG Hemoglobin ABG Oxyhemoglobin ABG Sodium ABG Potassium ABG Chloride ABG Glucose Carboxyhemoglobin Sodium Potassium Chloride Carbon Dioxide BUN Creatinine 0.7 L Glucose 188 H POC Glucose 212 H Calcium 8.3 L Magnesium Ferritin AST Alkaline Phosphatase Lactate Dehydrogenase C-Reactive Protein Total Protein Albumin Arterial Blood Glucose Arterial Blood Ionized Calcium Urine WBC (Auto) Coronavirus (PCR) Crossmatch 08/15/20 08/15/20 08/16/20 14:00 Unknown 04:43 WBC RBC 3.28 L Hgb 9.6 L Hct 29.3 L MCV MCH MCHC RDW 16.6 H Plt Count Lymph % (Auto) [place] % (Auto) Eos % (Auto) 4.9 H Lymph # (Auto) Seg Neutrophils % Seg Neutrophils # PT INR APTT D-Dimer Heparin Anti-Xa Level ABG pH POC ABG pCO2 POC ABG pO2 ABG pO2 ABG HCO3 ABG O2 Saturation ABG Base Excess ABG Hemoglobin ABG Oxyhemoglobin ABG Sodium ABG Potassium ABG Chloride ABG Glucose Carboxyhemoglobin Sodium Potassium Chloride Carbon Dioxide BUN 8 L Creatinine 0.6 L Glucose 115 H POC Glucose Calcium Magnesium Ferritin AST Alkaline Phosphatase Lactate Dehydrogenase C-Reactive Protein Total Protein Albumin Arterial Blood Glucose Arterial Blood Ionized Calcium Urine WBC (Auto) 31.0 H Coronavirus (PCR) Crossmatch 08/16/20 08/18/20 08/20/20 04:43 15:17 07:12 WBC RBC Hgb 9.1 L Hct 27.2 L MCV MCH MCHC RDW Plt Count Lymph % (Auto) [place] % (Auto) Eos % (Auto) Lymph # (Auto) Seg Neutrophils % Seg Neutrophils # PT INR APTT D-Dimer Heparin Anti-Xa Level ABG pH POC ABG pCO2 POC ABG pO2 ABG pO2 ABG HCO3 ABG O2 Saturation ABG Base Excess ABG Hemoglobin ABG Oxyhemoglobin ABG Sodium ABG Potassium ABG Chloride ABG Glucose Carboxyhemoglobin Sodium 135 L Potassium Chloride 97.5 L Carbon Dioxide BUN Creatinine 0.5 L Glucose 153 H 135 H POC Glucose Calcium Magnesium Ferritin AST Alkaline Phosphatase Lactate Dehydrogenase C-Reactive Protein Total Protein Albumin Arterial Blood Glucose Arterial Blood Ionized Calcium Urine WBC (Auto) Coronavirus (PCR) Crossmatch 08/20/20 08/20/20 08/20/20 07:12 07:12 08:07 WBC RBC Hgb Hct MCV MCH MCHC RDW Plt Count Lymph % (Auto) [place] % (Auto) Eos % (Auto) Lymph # (Auto) Seg Neutrophils % Seg Neutrophils # PT INR 1.15 H APTT D-Dimer Heparin Anti-Xa Level ABG pH POC ABG pCO2 POC ABG pO2 ABG pO2 ABG HCO3 ABG O2 Saturation ABG Base Excess ABG Hemoglobin ABG Oxyhemoglobin ABG Sodium ABG Potassium ABG Chloride ABG Glucose Carboxyhemoglobin Sodium Potassium Chloride Carbon Dioxide BUN Creatinine Glucose 113 H POC Glucose 108 H Calcium Magnesium Ferritin AST Alkaline Phosphatase Lactate Dehydrogenase C-Reactive Protein Total Protein Albumin Arterial Blood Glucose Arterial Blood Ionized Calcium Urine WBC (Auto) Coronavirus (PCR) Crossmatch 08/20/20 08/20/20 08/21/20 16:32 22:34 07:42 WBC RBC Hgb Hct MCV MCH MCHC RDW Plt Count Lymph % (Auto) [place] % (Auto) Eos % (Auto) Lymph # (Auto) Seg Neutrophils % Seg Neutrophils # PT INR APTT D-Dimer Heparin Anti-Xa Level ABG pH POC ABG pCO2 POC ABG pO2 ABG pO2 ABG HCO3 ABG O2 Saturation ABG Base Excess ABG Hemoglobin ABG Oxyhemoglobin ABG Sodium ABG Potassium ABG Chloride ABG Glucose Carboxyhemoglobin Sodium Potassium Chloride Carbon Dioxide BUN Creatinine Glucose POC Glucose 107 H 139 H 115 H Calcium Magnesium Ferritin AST Alkaline Phosphatase Lactate Dehydrogenase C-Reactive Protein Total Protein Albumin Arterial Blood Glucose Arterial Blood Ionized Calcium Urine WBC (Auto) Coronavirus (PCR) Crossmatch 08/21/20 08/21/20 08/21/20 08:14 08:14 11:31 WBC RBC 3.08 L Hgb 8.9 L Hct 27.0 L MCV MCH MCHC RDW 16.7 H Plt Count Lymph % (Auto) [place] % (Auto) Eos % (Auto) Lymph # (Auto) Seg Neutrophils % Seg Neutrophils # PT INR APTT D-Dimer Heparin Anti-Xa Level ABG pH POC ABG pCO2 POC ABG pO2 ABG pO2 ABG HCO3 ABG O2 Saturation ABG Base Excess ABG Hemoglobin ABG Oxyhemoglobin ABG Sodium ABG Potassium ABG Chloride ABG Glucose Carboxyhemoglobin Sodium 136 L Potassium Chloride Carbon Dioxide BUN Creatinine Glucose 129 H POC Glucose 132 H Calcium Magnesium Ferritin AST Alkaline Phosphatase Lactate Dehydrogenase C-Reactive Protein Total Protein Albumin Arterial Blood Glucose Arterial Blood Ionized Calcium Urine WBC (Auto) Coronavirus (PCR) Crossmatch 08/24/20 08/25/20 08/26/20 10:57 18:39 11:57 WBC RBC Hgb Hct MCV MCH MCHC RDW Plt Count Lymph % (Auto) [place] % (Auto) Eos % (Auto) Lymph # (Auto) Seg Neutrophils % Seg Neutrophils # PT INR APTT D-Dimer Heparin Anti-Xa Level ABG pH POC ABG pCO2 POC ABG pO2 ABG pO2 ABG HCO3 ABG O2 Saturation ABG Base Excess ABG Hemoglobin ABG Oxyhemoglobin ABG Sodium ABG Potassium ABG Chloride ABG Glucose Carboxyhemoglobin Sodium Potassium Chloride Carbon Dioxide BUN Creatinine Glucose POC Glucose 126 H 120 H 127 H Calcium Magnesium Ferritin AST Alkaline Phosphatase Lactate Dehydrogenase C-Reactive Protein Total Protein Albumin Arterial Blood Glucose Arterial Blood Ionized Calcium Urine WBC (Auto) Coronavirus (PCR) Crossmatch 08/26/20 08/26/20 08/28/20 18:44 23:31 19:34 WBC RBC 3.09 L Hgb 8.7 L Hct 25.5 L MCV 82 L MCH MCHC RDW 17.1 H Plt Count Lymph % (Auto) [place] % (Auto) 9.1 H Eos % (Auto) Lymph # (Auto) 0.8 L Seg Neutrophils % 71.7 H Seg Neutrophils # PT INR APTT D-Dimer Heparin Anti-Xa Level ABG pH POC ABG pCO2 POC ABG pO2 ABG pO2 ABG HCO3 ABG O2 Saturation ABG Base Excess ABG Hemoglobin ABG Oxyhemoglobin ABG Sodium ABG Potassium ABG Chloride ABG Glucose Carboxyhemoglobin Sodium Potassium Chloride Carbon Dioxide BUN Creatinine Glucose POC Glucose 125 H 115 H Calcium Magnesium Ferritin AST Alkaline Phosphatase Lactate Dehydrogenase C-Reactive Protein Total Protein Albumin Arterial Blood Glucose Arterial Blood Ionized Calcium Urine WBC (Auto) Coronavirus (PCR) Crossmatch 08/28/20 08/28/20 08/29/20 19:34 22:16 08:06 WBC RBC Hgb Hct MCV MCH MCHC RDW Plt Count Lymph % (Auto) [place] % (Auto) Eos % (Auto) Lymph # (Auto) Seg Neutrophils % Seg Neutrophils # PT INR APTT D-Dimer Heparin Anti-Xa Level ABG pH POC ABG pCO2 POC ABG pO2 ABG pO2 ABG HCO3 ABG O2 Saturation ABG Base Excess ABG Hemoglobin ABG Oxyhemoglobin ABG Sodium ABG Potassium ABG Chloride ABG Glucose Carboxyhemoglobin Sodium 130 L Potassium 2.6 L* Chloride 96.4 L Carbon Dioxide BUN Creatinine Glucose 119 H POC Glucose 110 H 119 H Calcium 7.8 L Magnesium Ferritin AST Alkaline Phosphatase Lactate Dehydrogenase C-Reactive Protein Total Protein Albumin Arterial Blood Glucose Arterial Blood Ionized Calcium Urine WBC (Auto) Coronavirus (PCR) Crossmatch 08/29/20 08/29/20 08/29/20 12:13 16:37 17:38 WBC RBC Hgb Hct MCV MCH MCHC RDW Plt Count Lymph % (Auto) [place] % (Auto) Eos % (Auto) Lymph # (Auto) Seg Neutrophils % Seg Neutrophils # PT INR APTT D-Dimer Heparin Anti-Xa Level ABG pH POC ABG pCO2 POC ABG pO2 ABG pO2 ABG HCO3 ABG O2 Saturation ABG Base Excess ABG Hemoglobin ABG Oxyhemoglobin ABG Sodium ABG Potassium ABG Chloride ABG Glucose Carboxyhemoglobin Sodium 133 L Potassium 3.0 L Chloride 97.9 L Carbon Dioxide 21 L BUN Creatinine Glucose 111 H POC Glucose 109 H 106 H Calcium 8.3 L Magnesium 1.30 L Ferritin AST Alkaline Phosphatase Lactate Dehydrogenase C-Reactive Protein Total Protein Albumin Arterial Blood Glucose Arterial Blood Ionized Calcium Urine WBC (Auto) Coronavirus (PCR) Crossmatch 08/29/20 08/29/20 08/29/20 19:21 19:21 19:21 WBC RBC Hgb Hct MCV MCH MCHC RDW Plt Count Lymph % (Auto) [place] % (Auto) Eos % (Auto) Lymph # (Auto) Seg Neutrophils % Seg Neutrophils # PT INR APTT D-Dimer 688.12 H Heparin Anti-Xa Level ABG pH POC ABG pCO2 POC ABG pO2 ABG pO2 ABG HCO3 ABG O2 Saturation ABG Base Excess ABG Hemoglobin ABG Oxyhemoglobin ABG Sodium ABG Potassium ABG Chloride ABG Glucose Carboxyhemoglobin Sodium Potassium 3.1 L Chloride Carbon Dioxide BUN Creatinine Glucose POC Glucose Calcium Magnesium 1.50 L Ferritin 1476.0 H AST Alkaline Phosphatase Lactate Dehydrogenase C-Reactive Protein Total Protein Albumin Arterial Blood Glucose Arterial Blood Ionized Calcium Urine WBC (Auto) Coronavirus (PCR) Crossmatch 08/29/20 08/29/20 08/31/20 19:21 Unknown 04:30 WBC RBC 3.12 L Hgb 9.1 L Hct 25.7 L MCV 83 L MCH MCHC 35 H RDW 17.4 H Plt Count Lymph % (Auto) [place] % (Auto) 9.4 H Eos % (Auto) Lymph # (Auto) Seg Neutrophils % Seg Neutrophils # PT INR APTT D-Dimer Heparin Anti-Xa Level ABG pH POC ABG pCO2 POC ABG pO2 ABG pO2 ABG HCO3 ABG O2 Saturation ABG Base Excess ABG Hemoglobin ABG Oxyhemoglobin ABG Sodium ABG Potassium ABG Chloride ABG Glucose Carboxyhemoglobin Sodium Potassium Chloride Carbon Dioxide BUN Creatinine Glucose POC Glucose Calcium Magnesium Ferritin AST Alkaline Phosphatase Lactate Dehydrogenase 373 H C-Reactive Protein 18.30 H Total Protein Albumin Arterial Blood Glucose Arterial Blood Ionized Calcium Urine WBC (Auto) Coronavirus (PCR) Positive A Crossmatch 08/31/20 09/02/20 09/02/20 04:30 06:28 06:49 WBC RBC Hgb Hct MCV MCH MCHC RDW Plt Count Lymph % (Auto) [place] % (Auto) Eos % (Auto) Lymph # (Auto) Seg Neutrophils % Seg Neutrophils # PT INR APTT D-Dimer Heparin Anti-Xa Level ABG pH POC ABG pCO2 26.2 L POC ABG pO2 82.2 L ABG pO2 ABG HCO3 ABG O2 Saturation ABG Base Excess ABG Hemoglobin 10.1 L ABG Oxyhemoglobin ABG Sodium 134.5 L ABG Potassium 3.2 L ABG Chloride ABG Glucose 127 H Carboxyhemoglobin 0.3 L Sodium 134 L Potassium 3.4 L Chloride Carbon Dioxide BUN Creatinine Glucose 129 H POC Glucose 109 H Calcium 8.0 L Magnesium Ferritin AST Alkaline Phosphatase Lactate Dehydrogenase C-Reactive Protein Total Protein Albumin Arterial Blood Glucose 127 H Arterial Blood Ionized Calcium 4.5 L Urine WBC (Auto) Coronavirus (PCR) Crossmatch 09/02/20 09/02/20 09/02/20 11:32 15:55 15:55 WBC RBC Hgb Hct MCV MCH MCHC RDW Plt Count Lymph % (Auto) [place] % (Auto) Eos % (Auto) Lymph # (Auto) Seg Neutrophils % Seg Neutrophils # PT 15.5 H INR 1.23 H APTT 50.2 H D-Dimer 2186.40 H Heparin Anti-Xa Level ABG pH POC ABG pCO2 POC ABG pO2 ABG pO2 ABG HCO3 ABG O2 Saturation ABG Base Excess ABG Hemoglobin ABG Oxyhemoglobin ABG Sodium ABG Potassium ABG Chloride ABG Glucose Carboxyhemoglobin Sodium Potassium Chloride Carbon Dioxide 21 L BUN 30 H Creatinine 1.6 H Glucose 125 H POC Glucose 112 H Calcium 7.8 L Magnesium Ferritin AST Alkaline Phosphatase Lactate Dehydrogenase C-Reactive Protein Total Protein Albumin Arterial Blood Glucose Arterial Blood Ionized Calcium Urine WBC (Auto) Coronavirus (PCR) Crossmatch 09/02/20 09/02/20 09/02/20 15:55 15:55 17:34 WBC 11.2 H RBC 2.94 L Hgb 8.1 L Hct 24.3 L MCV 83 L MCH 27 L MCHC RDW 17.7 H Plt Count Lymph % (Auto) 12.7 L [place] % (Auto) Eos % (Auto) Lymph # (Auto) Seg Neutrophils % 82.5 H Seg Neutrophils # 9.3 H PT INR APTT D-Dimer Heparin Anti-Xa Level ABG pH POC ABG pCO2 POC ABG pO2 ABG pO2 ABG HCO3 ABG O2 Saturation ABG Base Excess ABG Hemoglobin ABG Oxyhemoglobin ABG Sodium ABG Potassium ABG Chloride ABG Glucose Carboxyhemoglobin Sodium Potassium Chloride Carbon Dioxide BUN Creatinine Glucose POC Glucose 127 H Calcium Magnesium Ferritin 1892.0 H AST Alkaline Phosphatase Lactate Dehydrogenase C-Reactive Protein Total Protein Albumin Arterial Blood Glucose Arterial Blood Ionized Calcium Urine WBC (Auto) Coronavirus (PCR) Crossmatch 09/03/20 09/03/20 09/03/20 07:13 16:40 23:40 WBC RBC Hgb Hct MCV MCH MCHC RDW Plt Count Lymph % (Auto) [place] % (Auto) Eos % (Auto) Lymph # (Auto) Seg Neutrophils % Seg Neutrophils # PT INR APTT D-Dimer Heparin Anti-Xa Level 0.88 H ABG pH POC ABG pCO2 POC ABG pO2 ABG pO2 ABG HCO3 ABG O2 Saturation ABG Base Excess ABG Hemoglobin ABG Oxyhemoglobin ABG Sodium ABG Potassium ABG Chloride ABG Glucose Carboxyhemoglobin Sodium Potassium 3.2 L Chloride 109.7 H Carbon Dioxide BUN 24 H Creatinine Glucose 142 H POC Glucose 220 H Calcium 8.2 L Magnesium Ferritin AST 75 H Alkaline Phosphatase Lactate Dehydrogenase C-Reactive Protein Total Protein 5.8 L Albumin 2.7 L Arterial Blood Glucose Arterial Blood Ionized Calcium Urine WBC (Auto) Coronavirus (PCR) Crossmatch 09/04/20 09/04/20 09/04/20 07:25 07:25 11:57 WBC RBC Hgb 9.0 L Hct 27.9 L MCV MCH MCHC RDW Plt Count Lymph % (Auto) [place] % (Auto) Eos % (Auto) Lymph # (Auto) Seg Neutrophils % Seg Neutrophils # PT INR APTT D-Dimer Heparin Anti-Xa Level ABG pH POC ABG pCO2 POC ABG pO2 ABG pO2 ABG HCO3 ABG O2 Saturation ABG Base Excess ABG Hemoglobin ABG Oxyhemoglobin ABG Sodium ABG Potassium ABG Chloride ABG Glucose Carboxyhemoglobin Sodium 148 H Potassium Chloride 116.9 H Carbon Dioxide BUN Creatinine Glucose 129 H POC Glucose 113 H Calcium Magnesium Ferritin AST 93 H Alkaline Phosphatase 134 H Lactate Dehydrogenase C-Reactive Protein Total Protein 6.0 L Albumin 2.6 L Arterial Blood Glucose Arterial Blood Ionized Calcium Urine WBC (Auto) Coronavirus (PCR) Crossmatch 09/05/20 09/05/20 09/05/20 06:24 07:17 13:38 WBC RBC Hgb Hct MCV MCH MCHC RDW Plt Count Lymph % (Auto) [place] % (Auto) Eos % (Auto) Lymph # (Auto) Seg Neutrophils % Seg Neutrophils # PT INR APTT D-Dimer Heparin Anti-Xa Level ABG pH 7.218 L POC ABG pCO2 66.0 H POC ABG pO2 45.8 L 79.1 L ABG pO2 ABG HCO3 ABG O2 Saturation ABG Base Excess ABG Hemoglobin 10.7 L 9.6 L ABG Oxyhemoglobin 74.5 L ABG Sodium 146.5 H 145.4 H ABG Potassium ABG Chloride 115.0 H 117.0 H ABG Glucose 146 H 106 H Carboxyhemoglobin 0.1 L 0 L Sodium 152 H Potassium Chloride 115.9 H Carbon Dioxide BUN Creatinine Glucose 134 H POC Glucose Calcium Magnesium Ferritin AST 69 H Alkaline Phosphatase 168 H Lactate Dehydrogenase C-Reactive Protein Total Protein 5.4 L Albumin 2.7 L Arterial Blood Glucose 146 H 106 H Arterial Blood Ionized Calcium Urine WBC (Auto) Coronavirus (PCR) Crossmatch 09/05/20 09/06/20 09/06/20 17:27 04:15 07:29 WBC RBC Hgb 7.8 L Hct 24.0 L MCV MCH MCHC RDW Plt Count Lymph % (Auto) [place] % (Auto) Eos % (Auto) Lymph # (Auto) Seg Neutrophils % Seg Neutrophils # PT INR APTT D-Dimer Heparin Anti-Xa Level ABG pH POC ABG pCO2 POC ABG pO2 ABG pO2 184.9 H ABG HCO3 19.9 L ABG O2 Saturation 99.2 H ABG Base Excess -3.5 L ABG Hemoglobin 8.9 L ABG Oxyhemoglobin ABG Sodium ABG Potassium ABG Chloride ABG Glucose Carboxyhemoglobin Sodium Potassium Chloride Carbon Dioxide BUN Creatinine Glucose POC Glucose 124 H Calcium Magnesium Ferritin AST Alkaline Phosphatase Lactate Dehydrogenase C-Reactive Protein Total Protein Albumin Arterial Blood Glucose Arterial Blood Ionized Calcium Urine WBC (Auto) Coronavirus (PCR) Crossmatch 09/06/20 09/06/20 09/06/20 07:29 07:29 12:02 WBC 11.3 H RBC 2.83 L Hgb 7.8 L Hct 24.3 L MCV MCH MCHC RDW 17.7 H Plt Count Lymph % (Auto) [place] % (Auto) Eos % (Auto) Lymph # (Auto) Seg Neutrophils % Seg Neutrophils # PT INR APTT D-Dimer Heparin Anti-Xa Level ABG pH POC ABG pCO2 POC ABG pO2 ABG pO2 ABG HCO3 ABG O2 Saturation ABG Base Excess ABG Hemoglobin ABG Oxyhemoglobin ABG Sodium ABG Potassium ABG Chloride ABG Glucose Carboxyhemoglobin Sodium 151 H Potassium Chloride 117.6 H Carbon Dioxide BUN 24 H Creatinine Glucose 159 H POC Glucose 158 H Calcium 7.7 L Magnesium Ferritin AST Alkaline Phosphatase Lactate Dehydrogenase C-Reactive Protein Total Protein Albumin Arterial Blood Glucose Arterial Blood Ionized Calcium Urine WBC (Auto) Coronavirus (PCR) Crossmatch 09/07/20 09/08/20 09/08/20 05:21 04:31 04:35 WBC RBC Hgb 7.4 L Hct 22.7 L MCV MCH MCHC RDW Plt Count Lymph % (Auto) [place] % (Auto) Eos % (Auto) Lymph # (Auto) Seg Neutrophils % Seg Neutrophils # PT INR APTT D-Dimer Heparin Anti-Xa Level ABG pH POC ABG pCO2 49.1 H POC ABG pO2 46.0 L 58.6 L ABG pO2 ABG HCO3 ABG O2 Saturation ABG Base Excess ABG Hemoglobin 8.6 L 7.8 L ABG Oxyhemoglobin 87.7 L ABG Sodium 145.1 H ABG Potassium ABG Chloride 116.0 H 116.0 H ABG Glucose 238 H 255 H Carboxyhemoglobin Sodium Potassium Chloride Carbon Dioxide BUN Creatinine Glucose POC Glucose Calcium Magnesium Ferritin AST Alkaline Phosphatase Lactate Dehydrogenase C-Reactive Protein Total Protein Albumin Arterial Blood Glucose 238 H 255 H Arterial Blood Ionized Calcium Urine WBC (Auto) Coronavirus (PCR) Crossmatch 09/08/20 09/08/20 09/08/20 12:45 17:26 19:15 WBC RBC Hgb Hct MCV MCH MCHC RDW Plt Count Lymph % (Auto) [place] % (Auto) Eos % (Auto) Lymph # (Auto) Seg Neutrophils % Seg Neutrophils # PT INR APTT D-Dimer Heparin Anti-Xa Level ABG pH POC ABG pCO2 POC ABG pO2 ABG pO2 ABG HCO3 ABG O2 Saturation ABG Base Excess ABG Hemoglobin ABG Oxyhemoglobin ABG Sodium ABG Potassium ABG Chloride ABG Glucose Carboxyhemoglobin Sodium Potassium Chloride Carbon Dioxide BUN Creatinine Glucose POC Glucose 270 H 294 H Calcium Magnesium Ferritin AST Alkaline Phosphatase Lactate Dehydrogenase C-Reactive Protein 4.90 H Total Protein Albumin Arterial Blood Glucose Arterial Blood Ionized Calcium Urine WBC (Auto) Coronavirus (PCR) Crossmatch 09/08/20 09/08/20 09/08/20 19:15 19:15 19:15 WBC RBC Hgb Hct MCV MCH MCHC RDW Plt Count Lymph % (Auto) [place] % (Auto) Eos % (Auto) Lymph # (Auto) Seg Neutrophils % Seg Neutrophils # PT INR APTT D-Dimer 1449.12 H Heparin Anti-Xa Level ABG pH POC ABG pCO2 POC ABG pO2 ABG pO2 ABG HCO3 ABG O2 Saturation ABG Base Excess ABG Hemoglobin ABG Oxyhemoglobin ABG Sodium ABG Potassium ABG Chloride ABG Glucose Carboxyhemoglobin Sodium Potassium Chloride Carbon Dioxide BUN Creatinine Glucose POC Glucose Calcium Magnesium Ferritin 1485.0 H AST Alkaline Phosphatase Lactate Dehydrogenase 541 H C-Reactive Protein Total Protein Albumin Arterial Blood Glucose Arterial Blood Ionized Calcium Urine WBC (Auto) Coronavirus (PCR) Crossmatch 09/09/20 09/09/20 09/09/20 04:40 12:15 17:36 WBC RBC Hgb Hct MCV MCH MCHC RDW Plt Count Lymph % (Auto) [place] % (Auto) Eos % (Auto) Lymph # (Auto) Seg Neutrophils % Seg Neutrophils # PT INR APTT D-Dimer Heparin Anti-Xa Level ABG pH POC ABG pCO2 POC ABG pO2 75.1 L ABG pO2 ABG HCO3 ABG O2 Saturation ABG Base Excess ABG Hemoglobin 10.7 L ABG Oxyhemoglobin 93.9 L ABG Sodium 146.7 H ABG Potassium ABG Chloride 113.0 H ABG Glucose 420 H Carboxyhemoglobin 0.2 L Sodium Potassium Chloride Carbon Dioxide BUN Creatinine Glucose POC Glucose 281 H 368 H Calcium Magnesium Ferritin AST Alkaline Phosphatase Lactate Dehydrogenase C-Reactive Protein Total Protein Albumin Arterial Blood Glucose 420 H Arterial Blood Ionized Calcium Urine WBC (Auto) Coronavirus (PCR) Crossmatch 09/10/20 09/10/20 09/10/20 04:45 07:15 11:51 WBC RBC Hgb 7.7 L Hct 24.8 L MCV MCH MCHC RDW Plt Count Lymph % (Auto) [place] % (Auto) Eos % (Auto) Lymph # (Auto) Seg Neutrophils % Seg Neutrophils # PT INR APTT D-Dimer Heparin Anti-Xa Level ABG pH POC ABG pCO2 POC ABG pO2 ABG pO2 ABG HCO3 ABG O2 Saturation ABG Base Excess ABG Hemoglobin 8.0 L ABG Oxyhemoglobin ABG Sodium 150.8 H ABG Potassium ABG Chloride 117.0 H ABG Glucose 461 H Carboxyhemoglobin Sodium Potassium Chloride Carbon Dioxide BUN Creatinine Glucose POC Glucose 358 H Calcium Magnesium Ferritin AST Alkaline Phosphatase Lactate Dehydrogenase C-Reactive Protein Total Protein Albumin Arterial Blood Glucose 461 H Arterial Blood Ionized Calcium Urine WBC (Auto) Coronavirus (PCR) Crossmatch 09/10/20 09/10/20 09/11/20 17:28 23:29 04:55 WBC RBC Hgb Hct MCV MCH MCHC RDW Plt Count Lymph % (Auto) [place] % (Auto) Eos % (Auto) Lymph # (Auto) Seg Neutrophils % Seg Neutrophils # PT INR APTT D-Dimer Heparin Anti-Xa Level ABG pH POC ABG pCO2 49.3 H POC ABG pO2 78.2 L ABG pO2 ABG HCO3 ABG O2 Saturation ABG Base Excess ABG Hemoglobin 8.2 L ABG Oxyhemoglobin ABG Sodium 155.0 H ABG Potassium ABG Chloride 120.0 H ABG Glucose 515 H Carboxyhemoglobin Sodium Potassium Chloride Carbon Dioxide BUN Creatinine Glucose POC Glucose 434 H 384 H Calcium Magnesium Ferritin AST Alkaline Phosphatase Lactate Dehydrogenase C-Reactive Protein Total Protein Albumin Arterial Blood Glucose 515 H Arterial Blood Ionized Calcium Urine WBC (Auto) Coronavirus (PCR) Crossmatch 09/11/20 09/11/20 09/11/20 05:03 06:10 06:10 WBC 11.1 H RBC 2.55 L Hgb 7.1 L Hct 23.4 L MCV MCH MCHC 30 L RDW 19.6 H Plt Count Lymph % (Auto) [place] % (Auto) Eos % (Auto) Lymph # (Auto) Seg Neutrophils % Seg Neutrophils # PT INR APTT D-Dimer Heparin Anti-Xa Level ABG pH POC ABG pCO2 POC ABG pO2 ABG pO2 ABG HCO3 ABG O2 Saturation ABG Base Excess ABG Hemoglobin ABG Oxyhemoglobin ABG Sodium ABG Potassium ABG Chloride ABG Glucose Carboxyhemoglobin Sodium 159 H D Potassium Chloride 121.9 H Carbon Dioxide BUN 59 H Creatinine Glucose 530 H* POC Glucose 306 H Calcium 8.2 L Magnesium Ferritin AST Alkaline Phosphatase Lactate Dehydrogenase C-Reactive Protein Total Protein Albumin Arterial Blood Glucose Arterial Blood Ionized Calcium Urine WBC (Auto) Coronavirus (PCR) Crossmatch 09/11/20 09/11/20 09/11/20 08:12 12:13 17:04 WBC RBC Hgb Hct MCV MCH MCHC RDW Plt Count Lymph % (Auto) [place] % (Auto) Eos % (Auto) Lymph # (Auto) Seg Neutrophils % Seg Neutrophils # PT INR APTT D-Dimer Heparin Anti-Xa Level ABG pH POC ABG pCO2 POC ABG pO2 ABG pO2 ABG HCO3 ABG O2 Saturation ABG Base Excess ABG Hemoglobin ABG Oxyhemoglobin ABG Sodium ABG Potassium ABG Chloride ABG Glucose Carboxyhemoglobin Sodium Potassium Chloride Carbon Dioxide BUN Creatinine Glucose 526 H* POC Glucose 374 H 398 H Calcium Magnesium Ferritin AST Alkaline Phosphatase Lactate Dehydrogenase C-Reactive Protein Total Protein Albumin Arterial Blood Glucose Arterial Blood Ionized Calcium Urine WBC (Auto) Coronavirus (PCR) Crossmatch 09/11/20 09/12/20 09/12/20 23:39 03:40 05:42 WBC RBC Hgb Hct MCV MCH MCHC RDW Plt Count Lymph % (Auto) [place] % (Auto) Eos % (Auto) Lymph # (Auto) Seg Neutrophils % Seg Neutrophils # PT INR APTT D-Dimer Heparin Anti-Xa Level ABG pH POC ABG pCO2 POC ABG pO2 ABG pO2 77.1 L ABG HCO3 31.3 H ABG O2 Saturation ABG Base Excess 6.4 H ABG Hemoglobin 5.4 L ABG Oxyhemoglobin ABG Sodium ABG Potassium ABG Chloride ABG Glucose Carboxyhemoglobin Sodium Potassium Chloride Carbon Dioxide BUN Creatinine Glucose POC Glucose 355 H 286 H Calcium Magnesium Ferritin AST Alkaline Phosphatase Lactate Dehydrogenase C-Reactive Protein Total Protein Albumin Arterial Blood Glucose Arterial Blood Ionized Calcium Urine WBC (Auto) Coronavirus (PCR) Crossmatch 09/12/20 09/12/20 09/12/20 06:01 06:01 11:22 WBC RBC 2.36 L Hgb 6.6 L Hct 21.7 L MCV MCH MCHC 31 L RDW 19.9 H Plt Count Lymph % (Auto) 8.5 L [place] % (Auto) Eos % (Auto) Lymph # (Auto) 0.8 L Seg Neutrophils % 86.6 H Seg Neutrophils # 8.5 H PT INR APTT D-Dimer Heparin Anti-Xa Level ABG pH POC ABG pCO2 POC ABG pO2 ABG pO2 ABG HCO3 ABG O2 Saturation ABG Base Excess ABG Hemoglobin ABG Oxyhemoglobin ABG Sodium ABG Potassium ABG Chloride ABG Glucose Carboxyhemoglobin Sodium 153 H Potassium Chloride 117.7 H Carbon Dioxide 32 H BUN 46 H Creatinine 0.7 L Glucose 358 H POC Glucose 350 H Calcium 7.3 L Magnesium Ferritin AST Alkaline Phosphatase Lactate Dehydrogenase C-Reactive Protein Total Protein Albumin Arterial Blood Glucose Arterial Blood Ionized Calcium Urine WBC (Auto) Coronavirus (PCR) Crossmatch 09/12/20 09/12/20 09/12/20 13:30 16:47 17:40 WBC RBC Hgb Hct MCV MCH MCHC RDW Plt Count Lymph % (Auto) [place] % (Auto) Eos % (Auto) Lymph # (Auto) Seg Neutrophils % Seg Neutrophils # PT INR APTT D-Dimer Heparin Anti-Xa Level ABG pH POC ABG pCO2 POC ABG pO2 ABG pO2 ABG HCO3 ABG O2 Saturation ABG Base Excess ABG Hemoglobin ABG Oxyhemoglobin ABG Sodium ABG Potassium ABG Chloride ABG Glucose Carboxyhemoglobin Sodium Potassium Chloride Carbon Dioxide BUN Creatinine Glucose POC Glucose 389 H 402 H Calcium Magnesium Ferritin AST Alkaline Phosphatase Lactate Dehydrogenase C-Reactive Protein Total Protein Albumin Arterial Blood Glucose Arterial Blood Ionized Calcium Urine WBC (Auto) Coronavirus (PCR) Crossmatch See Detail 09/12/20 09/13/20 09/13/20 23:56 02:09 05:08 WBC RBC Hgb Hct MCV MCH MCHC RDW Plt Count Lymph % (Auto) [place] % (Auto) Eos % (Auto) Lymph # (Auto) Seg Neutrophils % Seg Neutrophils # PT INR APTT D-Dimer Heparin Anti-Xa Level ABG pH 7.471 H POC ABG pCO2 POC ABG pO2 75.2 L ABG pO2 ABG HCO3 ABG O2 Saturation ABG Base Excess ABG Hemoglobin 11.5 L ABG Oxyhemoglobin ABG Sodium 158.8 H ABG Potassium ABG Chloride 122.0 H ABG Glucose 387 H Carboxyhemoglobin Sodium Potassium Chloride Carbon Dioxide BUN Creatinine Glucose POC Glucose 337 H 256 H Calcium Magnesium Ferritin AST Alkaline Phosphatase Lactate Dehydrogenase C-Reactive Protein Total Protein Albumin Arterial Blood Glucose 387 H Arterial Blood Ionized Calcium Urine WBC (Auto) Coronavirus (PCR) Crossmatch 09/13/20 09/13/20 09/13/20 09:07 09:07 11:44 WBC 12.2 H RBC Hgb 10.9 L D Hct 33.7 L D MCV MCH MCHC RDW 18.5 H Plt Count Lymph % (Auto) 7.1 L [place] % (Auto) Eos % (Auto) Lymph # (Auto) 0.9 L Seg Neutrophils % 89.3 H Seg Neutrophils # 10.8 H PT INR APTT D-Dimer Heparin Anti-Xa Level ABG pH POC ABG pCO2 POC ABG pO2 ABG pO2 ABG HCO3 ABG O2 Saturation ABG Base Excess ABG Hemoglobin ABG Oxyhemoglobin ABG Sodium ABG Potassium ABG Chloride ABG Glucose Carboxyhemoglobin Sodium 160 H Potassium Chloride 121.1 H Carbon Dioxide 34 H BUN 51 H Creatinine Glucose 294 H POC Glucose 283 H Calcium Magnesium Ferritin AST Alkaline Phosphatase Lactate Dehydrogenase C-Reactive Protein Total Protein Albumin Arterial Blood Glucose Arterial Blood Ionized Calcium Urine WBC (Auto) Coronavirus (PCR) Crossmatch 09/13/20 09/13/20 09/14/20 16:45 23:35 04:58 WBC RBC Hgb Hct MCV MCH MCHC RDW Plt Count Lymph % (Auto) [place] % (Auto) Eos % (Auto) Lymph # (Auto) Seg Neutrophils % Seg Neutrophils # PT INR APTT D-Dimer Heparin Anti-Xa Level ABG pH POC ABG pCO2 POC ABG pO2 63.7 L ABG pO2 ABG HCO3 ABG O2 Saturation ABG Base Excess ABG Hemoglobin 10.2 L ABG Oxyhemoglobin ABG Sodium 149.6 H ABG Potassium ABG Chloride 116.0 H ABG Glucose 341 H Carboxyhemoglobin Sodium Potassium Chloride Carbon Dioxide BUN Creatinine Glucose POC Glucose 265 H 306 H Calcium Magnesium Ferritin AST Alkaline Phosphatase Lactate Dehydrogenase C-Reactive Protein Total Protein Albumin Arterial Blood Glucose 341 H Arterial Blood Ionized Calcium Urine WBC (Auto) Coronavirus (PCR) Crossmatch 09/14/20 09/14/20 09/14/20 05:18 06:25 06:25 WBC 11.2 H RBC 3.20 L Hgb 9.4 L Hct 29.9 L MCV MCH MCHC 31 L RDW 19.6 H Plt Count Lymph % (Auto) [place] % (Auto) Eos % (Auto) Lymph # (Auto) Seg Neutrophils % Seg Neutrophils # PT INR APTT D-Dimer Heparin Anti-Xa Level ABG pH POC ABG pCO2 POC ABG pO2 ABG pO2 ABG HCO3 ABG O2 Saturation ABG Base Excess ABG Hemoglobin ABG Oxyhemoglobin ABG Sodium ABG Potassium ABG Chloride ABG Glucose Carboxyhemoglobin Sodium 156 H Potassium Chloride 116.4 H Carbon Dioxide BUN 49 H Creatinine Glucose 337 H POC Glucose 272 H Calcium 8.0 L Magnesium Ferritin AST Alkaline Phosphatase Lactate Dehydrogenase C-Reactive Protein Total Protein Albumin Arterial Blood Glucose Arterial Blood Ionized Calcium Urine WBC (Auto) Coronavirus (PCR) Crossmatch 09/14/20 09/14/20 09/14/20 06:25 11:55 16:52 WBC RBC Hgb Hct MCV MCH MCHC RDW Plt Count Lymph % (Auto) [place] % (Auto) Eos % (Auto) Lymph # (Auto) Seg Neutrophils % Seg Neutrophils # PT 15.9 H INR 1.27 H APTT 68.0 H* D-Dimer Heparin Anti-Xa Level ABG pH POC ABG pCO2 POC ABG pO2 ABG pO2 ABG HCO3 ABG O2 Saturation ABG Base Excess ABG Hemoglobin ABG Oxyhemoglobin ABG Sodium ABG Potassium ABG Chloride ABG Glucose Carboxyhemoglobin Sodium Potassium Chloride Carbon Dioxide BUN Creatinine Glucose POC Glucose 321 H Calcium Magnesium 2.60 H Ferritin AST Alkaline Phosphatase Lactate Dehydrogenase C-Reactive Protein Total Protein Albumin Arterial Blood Glucose Arterial Blood Ionized Calcium Urine WBC (Auto) Coronavirus (PCR) Crossmatch 09/14/20 09/14/20 09/14/20 17:28 23:22 23:32 WBC RBC Hgb Hct MCV MCH MCHC RDW Plt Count Lymph % (Auto) [place] % (Auto) Eos % (Auto) Lymph # (Auto) Seg Neutrophils % Seg Neutrophils # PT INR APTT D-Dimer Heparin Anti-Xa Level 2.00 H ABG pH POC ABG pCO2 POC ABG pO2 ABG pO2 ABG HCO3 ABG O2 Saturation ABG Base Excess ABG Hemoglobin ABG Oxyhemoglobin ABG Sodium ABG Potassium ABG Chloride ABG Glucose Carboxyhemoglobin Sodium Potassium Chloride Carbon Dioxide BUN Creatinine Glucose POC Glucose 293 H 188 H Calcium Magnesium Ferritin AST Alkaline Phosphatase Lactate Dehydrogenase C-Reactive Protein Total Protein Albumin Arterial Blood Glucose Arterial Blood Ionized Calcium Urine WBC (Auto) Coronavirus (PCR) Crossmatch 09/14/20 09/15/20 09/15/20 Unknown 04:33 05:26 WBC 2.4 L RBC 2.12 L Hgb 7.9 L 6.5 L Hct 24.4 L 20.1 L MCV 95 H MCH MCHC RDW 20.7 H Plt Count 124 L 112 L Lymph % (Auto) [place] % (Auto) Eos % (Auto) Lymph # (Auto) Seg Neutrophils % Seg Neutrophils # PT INR APTT D-Dimer Heparin Anti-Xa Level ABG pH 7.475 H POC ABG pCO2 POC ABG pO2 44.0 L ABG pO2 ABG HCO3 ABG O2 Saturation ABG Base Excess ABG Hemoglobin 7.5 L ABG Oxyhemoglobin 79 L ABG Sodium 134.7 L ABG Potassium ABG Chloride ABG Glucose 259 H Carboxyhemoglobin 1.8 H Sodium Potassium Chloride Carbon Dioxide BUN Creatinine Glucose POC Glucose Calcium Magnesium Ferritin AST Alkaline Phosphatase Lactate Dehydrogenase C-Reactive Protein Total Protein Albumin Arterial Blood Glucose 259 H Arterial Blood Ionized Calcium 4.4 L Urine WBC (Auto) Coronavirus (PCR) Crossmatch 09/15/20 09/15/20 09/15/20 05:26 05:38 07:58 WBC RBC Hgb Hct MCV MCH MCHC RDW Plt Count Lymph % (Auto) [place] % (Auto) Eos % (Auto) Lymph # (Auto) Seg Neutrophils % Seg Neutrophils # PT INR APTT D-Dimer Heparin Anti-Xa Level ABG pH POC ABG pCO2 POC ABG pO2 ABG pO2 ABG HCO3 ABG O2 Saturation ABG Base Excess ABG Hemoglobin ABG Oxyhemoglobin ABG Sodium ABG Potassium ABG Chloride ABG Glucose Carboxyhemoglobin Sodium Potassium Chloride Carbon Dioxide BUN 39 H Creatinine Glucose 262 H POC Glucose 216 H 196 H Calcium 7.1 L Magnesium Ferritin AST Alkaline Phosphatase Lactate Dehydrogenase C-Reactive Protein Total Protein 4.7 L Albumin 2.0 L Arterial Blood Glucose Arterial Blood Ionized Calcium Urine WBC (Auto) Coronavirus (PCR) Crossmatch 09/15/20 09/15/20 09/15/20 10:46 12:20 17:47 WBC RBC Hgb Hct MCV MCH MCHC RDW Plt Count Lymph % (Auto) [place] % (Auto) Eos % (Auto) Lymph # (Auto) Seg Neutrophils % Seg Neutrophils # PT INR APTT D-Dimer Heparin Anti-Xa Level ABG pH POC ABG pCO2 POC ABG pO2 56.8 L ABG pO2 ABG HCO3 ABG O2 Saturation ABG Base Excess ABG Hemoglobin 8.9 L ABG Oxyhemoglobin 87.6 L ABG Sodium 131.0 L ABG Potassium ABG Chloride ABG Glucose 278 H Carboxyhemoglobin Sodium Potassium Chloride Carbon Dioxide BUN Creatinine Glucose POC Glucose 261 H 263 H Calcium Magnesium Ferritin AST Alkaline Phosphatase Lactate Dehydrogenase C-Reactive Protein Total Protein Albumin Arterial Blood Glucose 278 H Arterial Blood Ionized Calcium 4.4 L Urine WBC (Auto) Coronavirus (PCR) Crossmatch 09/15/20 09/15/20 09/16/20 19:15 23:33 04:00 WBC 3.8 L RBC 2.38 L Hgb 7.7 L 7.3 L Hct 23.1 L 22.5 L MCV 95 H MCH MCHC RDW 19.0 H Plt Count 116 L Lymph % (Auto) [place] % (Auto) Eos % (Auto) Lymph # (Auto) Seg Neutrophils % Seg Neutrophils # PT INR APTT D-Dimer Heparin Anti-Xa Level ABG pH POC ABG pCO2 POC ABG pO2 ABG pO2 ABG HCO3 ABG O2 Saturation ABG Base Excess ABG Hemoglobin ABG Oxyhemoglobin ABG Sodium ABG Potassium ABG Chloride ABG Glucose Carboxyhemoglobin Sodium Potassium Chloride Carbon Dioxide BUN Creatinine Glucose POC Glucose 218 H Calcium Magnesium Ferritin AST Alkaline Phosphatase Lactate Dehydrogenase C-Reactive Protein Total Protein Albumin Arterial Blood Glucose Arterial Blood Ionized Calcium Urine WBC (Auto) Coronavirus (PCR) Crossmatch 09/16/20 09/16/20 09/16/20 04:00 05:24 08:10 WBC RBC Hgb Hct MCV MCH MCHC RDW Plt Count Lymph % (Auto) [place] % (Auto) Eos % (Auto) Lymph # (Auto) Seg Neutrophils % Seg Neutrophils # PT INR APTT D-Dimer Heparin Anti-Xa Level ABG pH POC ABG pCO2 POC ABG pO2 54.8 L ABG pO2 ABG HCO3 ABG O2 Saturation ABG Base Excess ABG Hemoglobin ABG Oxyhemoglobin ABG Sodium ABG Potassium 3.2 L ABG Chloride 108.0 H ABG Glucose 172 H Carboxyhemoglobin Sodium Potassium 3.1 L Chloride 108.5 H Carbon Dioxide BUN 31 H Creatinine Glucose 152 H POC Glucose 147 H Calcium 6.8 L Magnesium Ferritin AST Alkaline Phosphatase Lactate Dehydrogenase C-Reactive Protein Total Protein 4.3 L Albumin 1.9 L Arterial Blood Glucose 172 H Arterial Blood Ionized Calcium Urine WBC (Auto) Coronavirus (PCR) Crossmatch 09/16/20 09/16/20 09/16/20 11:39 13:15 17:29 WBC RBC Hgb Hct MCV MCH MCHC RDW Plt Count Lymph % (Auto) [place] % (Auto) Eos % (Auto) Lymph # (Auto) Seg Neutrophils % Seg Neutrophils # PT INR APTT D-Dimer Heparin Anti-Xa Level ABG pH POC ABG pCO2 POC ABG pO2 ABG pO2 ABG HCO3 ABG O2 Saturation ABG Base Excess ABG Hemoglobin ABG Oxyhemoglobin ABG Sodium ABG Potassium ABG Chloride ABG Glucose Carboxyhemoglobin Sodium Potassium Chloride Carbon Dioxide BUN Creatinine Glucose POC Glucose 197 H 253 H Calcium Magnesium Ferritin AST Alkaline Phosphatase Lactate Dehydrogenase C-Reactive Protein Total Protein Albumin Arterial Blood Glucose Arterial Blood Ionized Calcium Urine WBC (Auto) Coronavirus (PCR) Crossmatch See Detail 09/16/20 23:27 WBC RBC Hgb Hct MCV MCH MCHC RDW Plt Count Lymph % (Auto) [place] % (Auto) Eos % (Auto) Lymph # (Auto) Seg Neutrophils % Seg Neutrophils # PT INR APTT D-Dimer Heparin Anti-Xa Level ABG pH POC ABG pCO2 POC ABG pO2 ABG pO2 ABG HCO3 ABG O2 Saturation ABG Base Excess ABG Hemoglobin ABG Oxyhemoglobin ABG Sodium ABG Potassium ABG Chloride ABG Glucose Carboxyhemoglobin Sodium Potassium Chloride Carbon Dioxide BUN Creatinine Glucose POC Glucose 244 H Calcium Magnesium Ferritin AST Alkaline Phosphatase Lactate Dehydrogenase C-Reactive Protein Total Protein Albumin Arterial Blood Glucose Arterial Blood Ionized Calcium Urine WBC (Auto) Coronavirus (PCR) Crossmatch Chest x-ray: image reviewed Allied health notes reviewed: RT
[2020-09-17] MEDS ORDERED: fentaNYL DRIP Premix 2,000 MCG/100 ML BAG IV SCH (06:00)
[2020-09-17] MEDS: INSULIN LISPRO 100 UNIT/ML VIAL 3 mL SUB-Q SCH ×4 (06:00→23:55)
[2020-09-17] MEDS: INSULIN GLARGINE 100 UNITS/ML SUB-Q SCH ×2 (08:49→17:29)
[2020-09-17] MEDS: VASOPRESSIN 20 UNIT in SODIUM CHLORIDE 0.9% 100 ML IV SCH ×2 (08:55→19:00)
--- NOTE | 2020-09-17 08:56 | Progress Note ---
Assessment and Plan Assessment and plan: 64 YO Male HD #26 with PVD, Coronavirus Infection, Acute Respiratory Failure, Sepsis, Pneumonia, Toxic Encephalopathy, Necrosis of Surgical wound. Patient resting in bed. No acute decompensation overnight. No improvement overnight. Patient remains critically ill. Patient prognosis is poor to guarded. 09/10: Significant elevated blood sugar. Patient with labile blood sugar issues. Aspiration precautions continue vent weaning per ambulance operations supervisor. Continue antibiotics management. Patient with noted hypernatremia we will continue to monitor sodium levels. Also with anemia of chronic disease we will monitor H&H closely. 09/11; Patient remains critically ill, continue wound care, monitor and adjust insulin for better control. 09/12: Noted Anemia, Will give 2 units PRBC. Continue supportive care, wean from vent as tolerated, Continue to monitor sodium level. IR input noted, adjust further insulin 09/13: Adjust free water to Q2Hr, monitor H/H, Check labs, continue supportive care. Insulin further adjusted for better control 09/14: Patient with Hypotension, will discuss with maintenance mechanic helper about adjusting pressors. Renae exchange today, Continue abx 09/15: Noted severe anemia, likely secondary to Hematuria, will obtain Urology consult, bladder ultrasound. Will hold the Heparin drip at this time. Give a unit of PRBC. 09/16: Patient remains critically ill, Hbg Improved some but trended down, will give additional unit of PRBC, No need for Urology at this time, GI input appreciated, will hold Plavix and also check HIT considering Thrombocytopenia, spoke to the son Aston [phone] EXPLAINED THE CRITICAL NATURE AND MULTIORGAN FAILURE AT THIS TIME. Body Trimmer to continue to manage SEVERE PROTEIN MALNUTRITION. 09/17: Still on full ventilatory support and uncontrolled HR. Will obtain labs today. Remains critically ill. Continue to monitor PLT, HR AND HGB. Started on LEVAQUIN for 3 days planned by ID. (1) Severe sepsis with shock Current Visit: Yes Status: Acute Plan to address problem: Sepsis protocol: CBC, CMP, IV fluid resuscitation therapy as clinically indicated, IV antibiotic therapy, monitor urine output every shift, maintain mean arterial blood pressure greater than or equal to 65, (2) Acute hypoxemic respiratory failure Current Visit: Yes Status: Acute Plan to address problem: Wean vent as tolerated, daily ABG, spontaneous breathing trial daily, chest x- ray, sedation holiday, supportive care. (3) Necrosis of surgical wound Current Visit: Yes Status: Acute Plan to address problem: Surgery team consulted. pain control, supportive care. Further care as per vascular surgery team. (4) CHF (congestive heart failure) Current Visit: No Status: Chronic Qualifiers: Heart failure chronicity: chronic Plan to address problem: Strict I/O, monitor urine output every shift, daily weight, monitor fluid balance, afterload reduction, blood pressure control. (5) Hypertension Current Visit: Yes Status: Acute Qualifiers: Hypertension type: essential hypertension Qualified Code(s): I10 - Essential (primary) hypertension Plan to address problem: Monitor blood pressure every shift, continue medical management (6) UTI (urinary tract infection) Current Visit: Yes Status: Acute Qualifiers: Encounter type: initial encounter Plan to address problem: CBC, CMP, urinalysis, IV antibiotic therapy. (7) Coronavirus 19 infection Current Visit: Yes Status: Acute Plan to address problem: Coronavirus protocol: IV antibiotic therapy, IV steroid therapy, supplemental oxygen, vitamin C supplementation, zinc supplementation, (8) Peripheral vascular disease (9) DVT prophylaxis Current Visit: Yes Status: Acute Plan to address problem: SCD to bilateral lower extremities while in bed, anticoagulation as per surgical team (9) Toxic metabolic encephalopathy Current Visit: Yes Status: Acute Plan to address problem: Supportive care, treat sepsis, (10) Advance care planning Current Visit: Yes Status: Acute Plan to address problem: Disease education conducted, patient is full code, prognosis discussed, care plan discussed, patient knowledges understanding and agreement with care plan, +30 minutes (10) history of alcohol abuse [11] history of gout [12] left lower extremity/left foot ulcer The high probability of a clinically significant, sudden or life threatening deterioration of the [cardiac, pulmonary, renal, infectious disease] system(s) required my full and direct attention, intervention and personal management. The aggregate critical care time was [35] minutes. This time is in addition to time spent performing reported procedures but includes the following: [x] Data Review and interpretation [x] Patient assessment and monitoring of vital signs [x] Documentation [x] Medication orders and management History Interval history: Patient seen and examined remains on full mechanical ventilation, remains on fentanly and Amiodarone drip, No new hematuria today, still with diarrhea but no alysia blood. Hospitalist Physical - Physical exam Narrative exam: General appearance: Present: remains on full ventilatory support. Limited exam due to PPE conservation during COVID Pandemic, STILL WITH MOVEMENT NON PURPOSEFUL - EENT Eyes: Present: miosis ENT: hearing decreased - Neck Neck: Present: supple - Respiratory Respiratory effort: labored Respiratory: bilateral: diminished, rhonchi - Cardiovascular Rhythm: regular Heart Sounds: Present: S1 & S2 - Extremities Extremity abnormal: edema Peripheral Pulses: abnormal (Capillary refill greater than 3.5 seconds) - Abdominal General gastrointestinal: soft, non-tender, non-distended - Integumentary Integumentary: Present: dressing and wound vac to lower ext - Psychiatric Psychiatric: no appropriate mood/affect, no intact judgment & insight, no memory intact - Neurologic Neurologic: CNII-XII intact, no gait normal - Constitutional Vitals: Temp Pulse Resp BP Pulse Ox 102.1 F H 131 H 22 109/47 92 09/17/20 08:00 09/17/20 08:30 09/17/20 08:30 09/17/20 08:30 09/17/20 08:30 General appearance: Present: no acute distress, other (intubated. Eyes open and regarding nurse.) Results - Labs CBC & Chem 7: 09/16/20 04:00 09/16/20 08:10 Labs: Laboratory Last Values WBC 3.8 K/mm3 (4.5-11.0) L 09/16/20 04:00 RBC 2.38 M/mm3 (3.65-5.03) L 09/16/20 04:00 Hgb 7.3 gm/dl (11.8-15.2) L 09/16/20 04:00 Hct 22.5 % (35.5-45.6) L 09/16/20 04:00 MCV 95 fl (84-94) H 09/16/20 04:00 MCH 31 pg (28-32) 09/16/20 04:00 MCHC 32 % (32-34) 09/16/20 04:00 RDW 19.0 % (13.2-15.2) H 09/16/20 04:00 Plt Count 116 K/mm3 (140-440) L 09/16/20 04:00 Lymph % (Auto) 7.1 % (13.4-35.0) L 09/13/20 09:07 [place]mullen % (Auto) 3.0 % (0.0-7.3) 09/13/20 09:07 Eos % (Auto) 0.0 % (0.0-4.3) 09/13/20 09:07 Baso % (Auto) 0.6 % (0.0-1.8) 09/13/20 09:07 Lymph # (Auto) 0.9 K/mm3 (1.2-5.4) L 09/13/20 09:07 [place]mullen # (Auto) 0.4 K/mm3 (0.0-0.8) 09/13/20 09:07 Eos # (Auto) 0.0 K/mm3 (0.0-0.4) 09/13/20 09:07 Baso # (Auto) 0.1 K/mm3 (0.0-0.1) 09/13/20 09:07 Add Manual Diff Complete 09/13/20 09:07 Seg Neutrophils % 89.3 % (40.0-70.0) H 09/13/20 09:07 Nucleated RBC % Not Reportable 09/13/20 09:07 Seg Neutrophils # 10.8 K/mm3 (1.8-7.7) H 09/13/20 09:07 WBC Morphology Not Reportable 09/13/20 09:07 Hypersegmented Neuts Not Reportable 09/13/20 09:07 Hyposegmented Neuts Not Reportable 09/13/20 09:07 Hypogranular Neuts Not Reportable 09/13/20 09:07 Smudge Cells Not Reportable 09/13/20 09:07 Toxic Granulation Not Reportable 09/13/20 09:07 Toxic Vacuolation Not Reportable 09/13/20 09:07 Dohle Bodies Not Reportable 09/13/20 09:07 Pelger-Huet Anomaly Not Reportable 09/13/20 09:07 [place] Rods Not Reportable 09/13/20 09:07 Platelet Estimate Not Reportable 09/13/20 09:07 Clumped Platelets Not Reportable 09/13/20 09:07 Plt Clumps, EDTA Not Reportable 09/13/20 09:07 Large Platelets Not Reportable 09/13/20 09:07 Giant Platelets Not Reportable 09/13/20 09:07 Platelet Satelliting Not Reportable 09/13/20 09:07 Plt Morphology Comment Not Reportable 09/13/20 09:07 RBC Morphology Not Reportable 09/13/20 09:07 Dimorphic RBCs Not Reportable 09/13/20 09:07 Polychromasia Not Reportable 09/13/20 09:07 Hypochromasia Not Reportable 09/13/20 09:07 Poikilocytosis Not Reportable 09/13/20 09:07 Anisocytosis Not Reportable 09/13/20 09:07 Microcytosis Not Reportable 09/13/20 09:07 Macrocytosis Not Reportable 09/13/20 09:07 Spherocytes Not Reportable 09/13/20 09:07 Pappenheimer Bodies Not Reportable 09/13/20 09:07 Sickle Cells Not Reportable 09/13/20 09:07 Target Cells Not Reportable 09/13/20 09:07 Tear Drop Cells Not Reportable 09/13/20 09:07 Ovalocytes Not Reportable 09/13/20 09:07 Helmet Cells Not Reportable 09/13/20 09:07 [place] Bodies Not Reportable 09/13/20 09:07 [place] Rings Not Reportable 09/13/20 09:07 Preethi Cells Not Reportable 09/13/20 09:07 Bite Cells Not Reportable 09/13/20 09:07 Crenated Cell Not Reportable 09/13/20 09:07 Elliptocytes Not Reportable 09/13/20 09:07 Acanthocytes (Spur) Not Reportable 09/13/20 09:07 Rouleaux Not Reportable 09/13/20 09:07 Hemoglobin C Crystals Not Reportable 09/13/20 09:07 Schistocytes Not Reportable 09/13/20 09:07 Malaria parasites Not Reportable 09/13/20 09:07 Ozzie Bodies Not Reportable 09/13/20 09:07 Hem Pathologist Commnt No 09/13/20 09:07 PT 15.9 Sec. (12.2-14.9) H 09/14/20 16:52 INR 1.27 (0.87-1.13) H 09/14/20 16:52 APTT 68.0 Sec. (24.2-36.6) H* 09/14/20 16:52 D-Dimer 1449.12 ng/mlDDU (0-234) H 09/08/20 19:15 Heparin Anti-Xa Level 2.00 U.I./ml (0.3-0.7) H 09/14/20 23:32 ABG pH 7.406 (7.320-7.450) 09/17/20 05:23 POC ABG pCO2 40.3 mmHg (32.0-48.0) 09/17/20 05:23 ABG pCO2 48.6 mm Hg 09/12/20 03:40 POC ABG pO2 56.4 mmHg (83-108) L 09/17/20 05:23 ABG pO2 77.1 mm Hg (80.0-90.0) L 09/12/20 03:40 POC ABG HCO3 24.7 09/17/20 05:23 ABG HCO3 31.3 mmol/L (20.0-26.0) H 09/12/20 03:40 ABG O2 Saturation 97.2 % (95.0-99.0) 09/12/20 03:40 ABG O2 Content 7.4 (0.0-44) 09/12/20 03:40 POC ABG Base Excess 0.1 09/17/20 05:23 ABG Base Excess 6.4 mmol/L (-2.0-3.0) H 09/12/20 03:40 ABG Hemoglobin 9.0 (12.0-17.5) L 09/17/20 05:23 ABG Oxyhemoglobin 89.2 (94-98) L 09/17/20 05:23 ABG Carboxyhemoglobin 1.6 % (0.0-5.0) 09/12/20 03:40 ABG Methemoglobin 0.3 (0.0-1.5) 09/17/20 05:23 ABG Sodium 138.7 mmol/L (136.0-145.0) 09/17/20 05:23 ABG Potassium 3.3 mmol/L (3.40-4.50) L 09/17/20 05:23 ABG Chloride 109.0 mmol/L (98-107) H 09/17/20 05:23 ABG Glucose 179 mg/dL (65-95) H 09/17/20 05:23 Oxyhemoglobin 95.4 % (95.0-99.0) 09/12/20 03:40 Carboxyhemoglobin 0.4 (0.5-1.5) L 09/17/20 05:23 FiO2 80 09/17/20 05:23 Sodium 143 mmol/L (137-145) 09/16/20 08:10 Potassium 3.1 mmol/L (3.6-5.0) L 09/16/20 08:10 Chloride 108.5 mmol/L (98-107) H 09/16/20 08:10 Carbon Dioxide 27 mmol/L (22-30) 09/16/20 08:10 Anion Gap 11 mmol/L 09/16/20 08:10 BUN 31 mg/dL (9-20) H 09/16/20 08:10 Creatinine 1.1 mg/dL (0.8-1.3) 09/16/20 08:10 Estimated GFR > 60 ml/min 09/16/20 08:10 BUN/Creatinine Ratio 28 % 09/16/20 08:10 Glucose 152 mg/dL (75-100) H 09/16/20 08:10 POC Glucose 158 mg/dL (70-105) H 09/17/20 05:27 Lactic Acid 1.40 mmol/L (0.7-2.0) 09/02/20 15:55 Calcium 6.8 mg/dL (8.4-10.2) L 09/16/20 08:10 Phosphorus 4.20 mg/dL (2.5-4.5) 09/14/20 06:25 Magnesium 2.10 mg/dL (1.7-2.3) 09/16/20 Unknown Ferritin 1485.0 ng/mL (30.0-300.0) H 09/08/20 19:15 Total Bilirubin 0.70 mg/dL (0.1-1.2) 09/16/20 08:10 AST 39 units/L (5-40) 09/16/20 08:10 ALT 30 units/L (7-56) 09/16/20 08:10 Alkaline Phosphatase 55 units/L (35-129) 09/16/20 08:10 Lactate Dehydrogenase 541 units/L (91-180) H 09/08/20 19:15 C-Reactive Protein 4.90 mg/dL (0.00-1.30) H 09/08/20 19:15 Total Protein 4.3 g/dL (6.3-8.2) L 09/16/20 08:10 Albumin 1.9 g/dL (3.9-5) L 09/16/20 08:10 Albumin/Globulin Ratio 0.8 % 09/16/20 08:10 Procalcitonin 0.16 ng/mL (<0.15) 09/08/20 19:15 Arterial Blood Glucose 179 mg/dL (65-95) H 09/17/20 05:23 Arterial Blood Ionized Calcium 4.3 mg/dL (4.6-5.3) L 09/17/20 05:23 Urine Color Yellow (Yellow) 09/16/20 22:05 Urine Turbidity Slightly-cloudy (Clear) 09/16/20 22:05 Urine pH 5.0 (5.0-7.0) 09/16/20 22:05 Ur Specific [place] 1.014 (1.003-1.030) 09/16/20 22:05 Urine Protein 100 mg/dl mg/dL (Negative) 09/16/20 22:05 Urine Glucose (UA) >=500 mg/dL (Negative) 09/16/20 22:05 Urine Ketones Neg mg/dL (Negative) 09/16/20 22:05 Urine Blood Mod (Negative) 09/16/20 22:05 Urine Nitrite Neg (Negative) 09/16/20 22:05 Urine Bilirubin Neg (Negative) 09/16/20 22:05 Urine Urobilinogen 2.0 mg/dL (<2.0) 09/16/20 22:05 Ur Leukocyte Esterase Neg (Negative) 09/16/20 22:05 Urine WBC (Auto) 4.0 /HPF (0.0-6.0) 09/16/20 22:05 Urine RBC (Auto) 14.0 /HPF (0.0-6.0) 09/16/20 22:05 Urine Mucus Few /HPF 09/16/20 22:05 Urine Yeast (Budding) 1+ /HPF 09/16/20 22:05 Nasal Screen MRSA (PCR) Negative (Negative) 09/06/20 12:41 Vancomycin Trough 14.2 ug/mL (5.0-20.0) 09/05/20 11:12 Coronavirus (PCR) Positive (Negative) A 08/29/20 Unknown Blood Type O POSITIVE 09/16/20 13:15 Antibody Screen Negative 09/16/20 13:15 Crossmatch See Detail 09/16/20 13:15 Renae/IV: Voiding Method Indwelling Catheter IV Catheter Type [Right Hand] INT / Saline Lock IV Catheter Type [Right Upper PICC Line arm] IV Catheter Type [Right Wrist] INT / Saline Lock IV Catheter Type [Right INT / Saline Lock Forearm] IV Catheter Type [Left Hand] INT / Saline Lock Active Medications - Current Medications Current Medications: Generic Name Dose Route Start Last Admin Trade Name Freq PRN Reason Stop Dose Admin Acetaminophen 650 mg 08/15/20 18:13 09/16/20 17:30 Acetaminophen 325 Mg Tab PO 650 mg Q4H PRN Administration Pain MILD(1-3)/Fever >100.5/REYES Albuterol 2.5 mg 08/15/20 18:13 08/20/20 12:53 Albuterol 2.5 Mg/3 Ml Nebu IH 2.5 mg Q4HRT PRN Administration Shortness Of Breath Amlodipine Besylate 10 mg 08/16/20 10:00 09/16/20 09:23 Amlodipine 10 Mg Tab PO Not Given QDAY DELFINO Lipase/Protease/Amylase 1 each 09/13/20 19:28 Lipase 10,500/Protease 25,000/Amylase 43,750 (Units) Dr Lisa FEEDTUBE PRN PRN For Clogged Feeding Tube Ascorbic Acid 500 mg 09/03/20 22:00 09/16/20 21:42 Ascorbic Acid 500 Mg Tab PO 500 mg BID DELFINO Administration Atorvastatin Calcium 40 mg 08/15/20 22:00 09/16/20 21:42 Atorvastatin 40 Mg Tab PO 40 mg QHS DELFINO Administration Cilostazol 100 mg 08/15/20 22:00 09/16/20 21:42 Cilostazol 100 Mg Tab PO 100 mg BID DELFINO Administration Dextrose 50 ml 09/10/20 13:56 Dextrose 50% In Water (25gm) 50 Ml Syringe IV Q30MIN PRN Hypoglycemia Protocol Folic Acid 1 mg 08/16/20 10:00 09/16/20 09:16 Folic Acid 1 Mg Tab PO 1 mg QDAY DELFINO Administration Hydrophilic Ointment 1 applic 09/05/20 05:23 Lip Therapy Vaseline TP Q2HR PRN Dry Lips Norepinephrine 4 mg in 250 mls @ 7.5 mls/hr 09/02/20 15:00 09/16/20 17:43 Levophed Drip 4 Mg/Ns 250 Ml IV 0 mcg/min TITR DELFINO 0 mls/hr Titration Protocol 2 MCG/MIN Vasopressin 20 unit/ Sodium 101 mls @ 9.09 mls/hr 09/02/20 16:00 09/17/20 06:46 Chloride IV 0.03 units/min TITR DELFINO 9.09 mls/hr Titration Protocol 0.03 UNITS/MIN Midazolam HCl 100 mg/ Sodium 100 mls @ 2 mls/hr 09/05/20 06:00 09/06/20 08:30 Chloride IV 0 mg/hr TITR DELFINO 0 mls/hr Titration Protocol 2 MG/HR Levofloxacin/Dextrose 750 mg in 150 mls @ 100 mls/hr 09/14/20 10:00 09/16/20 09:17 Levaquin 750mg/150ml IV 09/17/20 09:59 100 mls/hr Q24H DELFINO Administration Protocol Amiodarone HCl 900 mg/ 500 mls @ 33.333 mls/hr 09/14/20 13:30 09/17/20 05:11 Dextrose IV 1 mg/min DIRECT DELFINO 33.333 mls/hr Administration Protocol 1 MG/MIN Fentanyl Citrate 2,000 mcg in 100 mls @ 39.85 mls/hr 09/17/20 06:00 09/17/20 05:31 Fentanyl Drip Premix IV 1 mcg/kg/hr TITR DELFINO 39.85 mls/hr Administration Protocol 1 MCG/KG/HR Insulin Glargine 30 units 09/15/20 17:00 09/17/20 08:49 Insulin Glargine 100 Units/Ml SUB-Q 30 units BIDDIAB DELFINO Administration Insulin Human Lispro 0 unit 09/10/20 18:00 09/17/20 06:00 Insulin Lispro 100 Unit/Ml Vial 3 Ml SUB-Q 3 unit Q6H DELFINO Administration Protocol Loperamide HCl 2 mg 08/26/20 23:00 08/28/20 12:51 Loperamide 2 Mg Cap PO 2 mg PRN PRN Administration Diarrhea Lorazepam 1 mg 09/06/20 17:25 09/14/20 04:13 Lorazepam 2 Mg/Ml Vial IV 1 mg Q4H PRN Administration Anxiety Metoprolol Tartrate 50 mg 08/15/20 22:00 09/16/20 21:41 Metoprolol Tartrate 50 Mg Tab PO Not Given BID DELFINO Midazolam HCl 2 mg 09/05/20 05:23 09/05/20 05:56 Midazolam 2 Mg/2 Ml Inj IV 2 mg Q10MIN PRN Administration Sedation Multi-Ingred Cream/Lotion/Oil/Oint 1 applic 09/05/20 05:23 Mineral Oil/Petrolatum, White Ophth Oint 3.5 Gm OU Q4HR PRN Dry Eye(s) Ondansetron HCl 4 mg 08/15/20 18:13 08/18/20 17:46 Ondansetron 4 Mg/2 Ml Inj IV 4 mg Q8H PRN Administration Nausea And Vomiting Pantoprazole Sodium 40 mg 09/15/20 17:00 09/16/20 09:16 Pantoprazole 40 Mg Inj IV 40 mg QDAY DELFINO Administration Simple Syrup 15 ml 09/13/20 19:28 Simple Syrup 15 Ml FEEDTUBE PRN PRN Hypoglycemia Simple Syrup 30 ml 09/13/20 19:28 Simple Syrup 15 Ml FEEDTUBE PRN PRN Hypoglycemia Sodium Bicarbonate 325 mg 09/13/20 19:28 Sodium Bicarbonate 325 Mg Tab FEEDTUBE PRN PRN For Clogged Feeding Tube Sodium Chloride 10 ml 08/15/20 22:00 09/16/20 21:42 Sodium Chloride 0.9% 10 Ml Flush Syringe IV 10 ml BID DELFINO Administration Sodium Chloride 10 ml 08/15/20 18:13 Sodium Chloride 0.9% 10 Ml Flush Syringe IV PRN PRN LINE FLUSH Tamsulosin HCl 0.4 mg 09/14/20 22:00 09/16/20 21:42 Tamsulosin 0.4 Mg Cap PO 0.4 mg QHS DELFINO Administration Thiamine HCl 100 mg 08/16/20 10:00 09/16/20 09:16 Thiamine 100 Mg Tab PO 100 mg QDAY DELFINO Administration Zinc Sulfate 220 mg 09/03/20 22:00 09/16/20 21:42 Zinc Sulfate 220 Mg Cap PO 220 mg BID DELFINO Administration Nutrition/Malnutrition Assess - Dietary Evaluation Nutrition/Malnutrition Findings: Nutrition Notes Start: 08/21/20 14:41 Freq: Status: Active Protocol: Document 09/14/20 12:29 CW (Rec: 09/14/20 12:36 CW [id number]) Co-Sign 09/14/20 12:29 MK Nutrition Notes Need for Assessment generated from: MD Order Initial or Follow up Reassessment Current Diagnosis Coronary Artery Disease,Sepsis ,Hypertension,Heart Failure, Respiratory Failure, Hyperlipidemia Other Pertinent Diagnosis COVID(+),PVD, ETOH dep, pneu, gout, (L) foot ulcer Current Diet Vital HP at 70 mL/hr Labs/Tests Na 156 BUN 49 BG 337 Pertinent Medications Humalog D5w at 100ml/hr Lantus Height 5 ft 4 in Weight 83 kg [place] Body Weight (kg) 59.09 BMI 31.4 Weight change and time frame Wt gain noted, pt oliguric Weight Status Obese Subjective/Other Information FU for TF tolerance, wt, labs. Per MD order for TF management, RD informed RN to decrease TF rate for renal and BG control (pt on low carb formula). Per RN, pt is tolerating TF. Percent of energy/protein needs met: 84%/100% Burn Absent Trauma Absent GI Symptoms None Difficulty In Swallowing Current % PO Negligible Minimum of two criteria Yes Interpretation of Weight Loss (severe) >2% in 1 week Fluid Accumulation Mild (non-severe) Reduced Peer Counselor Strength N/A (non-severe) #3 Nutrition Diagnosis Malnutrition Diagnosis Progress(for reassessment Continues documentation) #2 Nutrition Diagnosis Inadequate oral intake Diagnosis Progress(for reassessment Continues documentation) #1 Nutrition Diagnosis Increased nutrient needs ( specify in comment below) Diagnosis Progress(for reassessment Continues documentation) Is patient on ventilator? Yes Is Patient Ambulatory and/or Out of Bed No REE-([facility]-confined to bed) 1848.252 Kcal/Kg value to use for calculation 19 Approximate Energy Requirements Using 1577 kcal/Kg Calculation Used for Recommendations Kcal/kg Additional Notes PRO needs: >118g (>2g/kg IBW) Fluid needs: 1mL/kcal Nutrition Intervention Change Diet Order: Continue TF at decreased rate of 65ml/hr Nutrition Support: Vital High Protein at 65ml/hr For hypernatremia flush 300ml q4h, once hypernatremia is resolved flush 100ml q4h Kcal 1,560 Protein (gm) 137 Fluid (mL) 1,304 Add Supplement/Snack (indicate name/kcal [place] BID /protein ) Provides kCal: 190 Provides Protein (gm) 5 Goal #1 Meet at least 80% of estimated energy and protein needs via TF Goal #2 Wound healing Anticipated Discharge Needs: Unable to determine at this time Follow-Up By: 09/18/20 Additional Comments FU for TF rate/tolerance, hypernatremia
[2020-09-17 09:26] LABS: Hemoglobin 7.5 gm/dl (11.8-15.2); Mean Corpuscular HGB Conc 32 % (32-34); Mean Corpuscular Volume 93 fl (84-94); Platelet Count 109 K/mm3 (140-440); Red Blood Count 2.47 M/mm3 (3.65-5.03); Red Cell Distribution Width 18.4 % (13.2-15.2)
--- NOTE | 2020-09-17 09:38 | Progress Note ---
Assessment and Plan Optimize HR - give additional IV amio bolus x 1 and cont amio gtt @ 1mg/min. off heparin/plavix due to worsening anemia grim prognosis The patient has been seen in conjunction with Dr. Jeb Lee who agrees with the assessment and plan of care. - Patient Problems (1) Paroxysmal atrial fibrillation with RVR Current Visit: Yes Status: Acute (2) COVID-19 virus infection Current Visit: Yes Status: Acute (3) Sepsis Current Visit: Yes Status: Acute (4) Hypotension Current Visit: Yes Status: Acute (5) Acute hypoxemic respiratory failure Current Visit: Yes Status: Acute (6) Pneumonia Current Visit: Yes Status: Suspected (7) Necrosis of surgical wound Current Visit: Yes Status: Acute (8) CAD (coronary artery disease) Current Visit: Yes Status: Chronic Qualifiers: Coronary Disease-Associated Artery/Lesion type: marshall artery [place] vs. transplanted heart: marshall heart (9) History of coronary artery bypass graft Current Visit: Yes Status: Chronic (10) History of ETOH abuse Current Visit: Yes Status: Chronic (11) Anemia Current Visit: Yes Status: Acute (12) Hypernatremia Current Visit: Yes Status: Acute Subjective Date of service: 09/17/20 Principal diagnosis: Ac hypoxemic resp failure; COVID-19; Pneumonia; Sepsis; PVD; L. foot ulcer Interval history: pt remains intubated, sedated, requiring vasopressor support. tele reviewed - in AFib HR 120 - 140s, amio gtt infusing @1mg/min. Objective Last Vital Signs Temp 102.1 F H 09/17/20 08:00 Pulse 131 H 09/17/20 08:30 Resp 22 09/17/20 08:30 BP 109/47 09/17/20 08:30 Pulse Ox 92 09/17/20 08:30 - Physical Examination Narrative exam: agree with physical examination per primary team Neuro: Positive: Other (intubated) Skin: Negative: Rash - Labs and Meds CBC 09/17/20 Range/Units 09:04 WBC 3.4 L (4.5-11.0) K/mm3 RBC 2.47 L (3.65-5.03) M/mm3 Hgb 7.5 L (11.8-15.2) gm/dl Hct 23.0 L (35.5-45.6) % Plt Count 109 L (140-440) K/mm3 - Imaging and Cardiology EKG: report reviewed, image reviewed Echo: report reviewed (07/31/2020 showed EF 60-65%, impaired relaxation, mild to mod LVH. ) - Allied health notes Allied health notes reviewed: nursing
[2020-09-17 09:42] LABS: Calcium 6.8 mg/dL (8.4-10.2)
[2020-09-17] MEDS ORDERED: AMIODARONE 150 MG in DEXTROSE 5% IN WATER 97 ML IV ONE (10:00)
[2020-09-17] MEDS: CILOSTAZOL 100 MG TAB PO SCH ×2 (10:31→23:24)
[2020-09-17] MEDS: PANTOPRAZOLE 40 MG INJ IV SCH (10:32)
[2020-09-17] MEDS: ASCORBIC ACID 500 MG TAB PO SCH ×2 (10:32→23:24)
[2020-09-17] MEDS: METOPROLOL TARTRATE 50 MG TAB PO SCH ×2 (10:32→23:25)
[2020-09-17] MEDS: ZINC SULFATE 220 MG CAP PO SCH ×2 (10:32→23:24)
[2020-09-17] MEDS: THIAMINE 100 MG TAB PO SCH (10:33)
[2020-09-17] MEDS: FOLIC ACID 1 MG TAB PO SCH (10:33)
[2020-09-17] MEDS: amLODIPine 10 MG TAB PO SCH (10:35)
--- NOTE | 2020-09-17 10:52 | Progress Note ---
Assessment and Plan Cultures: 08/16/2020 SARS CoV2 PCR: Negative 08/29/2020 SARS CoV2 PCR: Positive 08/15/2020 urine culture: No growth 08/24/2020 blood culture: No growth 08/28/2020 blood culture: No growth 08/28/2020 urine culture: No growth MRSA PCR negative 09/05/2020 Sputum +Barby A/P: 64-year-old male with hypertension, coronary artery disease, peripheral vascular disease, gout, alcohol dependence was admitted to the hospital on 08/15/2020 due to bleeding from his left foot which is a site of a previous surgery. Patient was noted to have wound dehiscence complicated by wound necrosis. Was seen by vascular surgery. He underwent a TMA. Due to fever, patient was receiving IV levofloxacin for UTI. COVID-19 test done on 08/29/2020 for placement reasons came back positive. Patient has been having intermittent fevers since 08/28/2020. 09/02/2020, a code MET was called due to tachypnea and labored respirations: #Shock: Probably from severe COVID-19. Noted high grade fever overnight #Critical COVID-19 Pneumonia: Patient with severe hypoxia, elevated inflammatory markers. Initially completed levofloxacin. Sputum with barby, likely a colonizer. Markers improving. S/p empiric 8 days of aztreonam and vanco #Acute hypoxic respiratory failure: remains intubated improving FIO2=40/p8 #Peripheral vascular disease, wound dehiscence and necrosis: underwent TMA by vascular surgery now with wound VAC/wound matrix/graft bone exposed. #Coronary artery disease, CHF #DM: uncontrolled with hyperglycemia. #Severe anemia: per ICU team #CAUTI: new UA c/w UTI #STEW: worsening Recs: -Repeat blood cx, tracheal asp and CXR new fever -S/p levaquin x 3 days -monitor anemia/evaluation -Completed steroids -Completed remdesivir -continue wound care -monitor fever Guarded prognosis Corry Perrin MD [facility] ([facility]) Office [phone] Subjective Date of service: 09/17/20 Principal diagnosis: Ac hypoxemic resp failure; COVID-19; Pneumonia; Sepsis; PVD; L. foot ulcer Interval history: Remains intubated, high fever 102, tachycardic Objective - Exam Narrative Exam: Physical Exam: reviewed ED and hospitalist notes. Deferred to prevent COVID-19 transmission. - Constitutional Vitals: Vital Signs Temp Pulse Resp BP Pulse Ox 102.1 F H 119 H 27 H 97/35 91 09/17/20 08:00 09/17/20 10:35 09/17/20 10:15 09/17/20 10:35 09/17/20 10:15 Temperature -Last 24 Hours Temperature 102.1 F Temperature 100.3 F Temperature 100.1 F Temperature 99.9 F Temperature 100.5 F Temperature 100.4 F Temperature 99.8 F Temperature 99.8 F Temperature 99 F Temperature 99 F Temperature 99 F Temperature 98.9 F Temperature 97.3 F - Labs CBC & Chem 7: 09/17/20 09:04 09/17/20 09:04 Labs: Abnormal lab results 09/16/20 09/16/20 09/16/20 Range/Units 11:39 13:15 17:29 WBC (4.5-11.0) K/mm3 RBC (3.65-5.03) M/mm3 Hgb (11.8-15.2) gm/dl Hct (35.5-45.6) % RDW (13.2-15.2) % Plt Count (140-440) K/mm3 POC ABG pO2 (83-108) mmHg ABG Hemoglobin (12.0-17.5) ABG Oxyhemoglobin (94-98) ABG Potassium (3.40-4.50) mmol/L ABG Chloride (98-107) mmol/L ABG Glucose (65-95) mg/dL Carboxyhemoglobin (0.5-1.5) Sodium (137-145) mmol/L Potassium (3.6-5.0) mmol/L BUN (9-20) mg/dL Creatinine (0.8-1.3) mg/dL Glucose (75-100) mg/dL POC Glucose 197 H 253 H (70-105) mg/dL Calcium (8.4-10.2) mg/dL Arterial Blood Glucose (65-95) mg/dL Arterial Blood Ionized Calcium (4.6-5.3) mg/dL Crossmatch See Detail 09/16/20 09/17/20 09/17/20 Range/Units 23:27 05:23 05:27 WBC (4.5-11.0) K/mm3 RBC (3.65-5.03) M/mm3 Hgb (11.8-15.2) gm/dl Hct (35.5-45.6) % RDW (13.2-15.2) % Plt Count (140-440) K/mm3 POC ABG pO2 56.4 L (83-108) mmHg ABG Hemoglobin 9.0 L (12.0-17.5) ABG Oxyhemoglobin 89.2 L (94-98) ABG Potassium 3.3 L (3.40-4.50) mmol/L ABG Chloride 109.0 H (98-107) mmol/L ABG Glucose 179 H (65-95) mg/dL Carboxyhemoglobin 0.4 L (0.5-1.5) Sodium (137-145) mmol/L Potassium (3.6-5.0) mmol/L BUN (9-20) mg/dL Creatinine (0.8-1.3) mg/dL Glucose (75-100) mg/dL POC Glucose 244 H 158 H (70-105) mg/dL Calcium (8.4-10.2) mg/dL Arterial Blood Glucose 179 H (65-95) mg/dL Arterial Blood Ionized Calcium 4.3 L (4.6-5.3) mg/dL Crossmatch 09/17/20 09/17/20 Range/Units 09:04 09:04 WBC 3.4 L (4.5-11.0) K/mm3 RBC 2.47 L (3.65-5.03) M/mm3 Hgb 7.5 L (11.8-15.2) gm/dl Hct 23.0 L (35.5-45.6) % RDW 18.4 H (13.2-15.2) % Plt Count 109 L (140-440) K/mm3 POC ABG pO2 (83-108) mmHg ABG Hemoglobin (12.0-17.5) ABG Oxyhemoglobin (94-98) ABG Potassium (3.40-4.50) mmol/L ABG Chloride (98-107) mmol/L ABG Glucose (65-95) mg/dL Carboxyhemoglobin (0.5-1.5) Sodium 135 L D (137-145) mmol/L Potassium 3.4 L (3.6-5.0) mmol/L BUN 35 H (9-20) mg/dL Creatinine 1.6 H (0.8-1.3) mg/dL Glucose 305 H (75-100) mg/dL POC Glucose (70-105) mg/dL Calcium 6.8 L (8.4-10.2) mg/dL Arterial Blood Glucose (65-95) mg/dL Arterial Blood Ionized Calcium (4.6-5.3) mg/dL Crossmatch
--- NOTE | 2020-09-17 12:11 | XRay Report ---
CHEST 1 VIEW INDICATION / CLINICAL INFORMATION: eval for worsneing pneumonia. FINDINGS: SUPPORT DEVICES: No significant change in position. HEART / MEDIASTINUM: The cardiomediastinal silhouette has not significantly changed in the interim. LUNGS / PLEURA: Severe bilateral multifocal airspace disease identified throughout both lungs, not si gnificantly changed Signer Name: Romaine Stephenson MD Signed: 09/17/2020 12:07 PM Workstation Name: [id number]
[2020-09-17] MEDS: ACETAMINOPHEN 325 MG TAB PO PRN ×2 (12:29→23:44)
[2020-09-17 12:45] LABS: Total Cells Counted 100
[2020-09-17 12:46] LABS: Band Neutrophils # (Manual) 0.1 K/mm3
[2020-09-17 12:47] LABS: Giant Platelets Few; Platelet Estimate Consistent w Auto; RBC Morphology Normal
[2020-09-17] MEDS ORDERED: POTASSIUM CHLORIDE 20 MEQ PACKET FEEDTUBE ONE (13:00)
[2020-09-17] MEDS: NORepinephrine/NS 4 MG-250 ML 4 MG/250 ML BAG IV SCH ×3 (13:21→23:42)
[2020-09-17] MEDS: TAMSULOSIN 0.4 MG CAP PO SCH (23:24)
[2020-09-18] MEDS ORDERED: INSULIN LISPRO 100 UNIT/ML SUB-Q ONE ×2 (00:01→06:17)
[2020-09-18] MEDS: NORepinephrine/NS 4 MG-250 ML 4 MG/250 ML BAG IV SCH ×2 (03:03→05:52)
[2020-09-18 04:45] LABS: Hemoglobin 6.5 gm/dl (11.8-15.2); Mean Corpuscular HGB Conc 31 % (32-34); Mean Corpuscular Volume 96 fl (84-94); Platelet Count 121 K/mm3 (140-440); Red Cell Distribution Width 19.1 % (13.2-15.2)
[2020-09-18 05:20] LABS: Albumin 1.5 g/dL (3.9-5)
[2020-09-18] MEDS: VASOPRESSIN 20 UNIT in SODIUM CHLORIDE 0.9% 100 ML IV SCH (05:53)
[2020-09-18 06:07] VITALS: BP 75/26
[2020-09-18] MEDS: INSULIN LISPRO 100 UNIT/ML VIAL 3 mL SUB-Q SCH (06:19)
[2020-09-18] MEDS ORDERED: PHENYLEPHRINE 100 MG in SODIUM CHLORIDE 0.9% 90 ML IV ONE (06:45)
[2020-09-18] MEDS ORDERED: PHENYLEPHRINE 100 MG in SODIUM CHLORIDE 0.9% 90 ML IV SCH (07:00)
--- NOTE | 2020-09-18 07:14 | Death Summary ---
Summary - Providers Date of service: 09/18/20 Consults: 08/16/20 09:00 Consult to Wound/ET Nurse [CONS] Routine Reason For Exam: wound eval 08/16/20 11:12 Consult to Physician [CONS] Routine Comment: Consulting Provider: JACY WHIPPLE Physician Instructions: Reason For Exam: poorly healing left TMA 08/20/20 00:59 Physical Therapy Evaluation and Treat [CONS] Routine Comment: Reason For Exam: pt likes to have an evaluation 08/20/20 16:21 Consult to Case Management [CONS] Routine Services Needed at Discharge: Wound Vac Home Health Services Notified:: cm 09/02/20 14:18 Consult to Physician [CONS] Routine Comment: Consulting Provider: MEE COBURN Physician Instructions: Reason For Exam: Acute respiratory failure/Covid 09/02/20 15:05 Consult to PICC Line RN [CONS] Urgent Reason For Exam: Septic Shock Type Line:: PICC Consult to Physician [CONS] Routine Comment: Consulting Provider: FELECIA MCKEON Physician Instructions: Reason For Exam: COVIS-19; Severe Sepsis with shock 09/03/20 14:21 Speech Therapy Evaluation and Treat [CONS] Stat Reason For Exam: pt coughing whilw drinking 09/05/20 05:23 Consult to Dietitian/Nutrition [CONS] Routine Physician Instructions: Reason For Exam: Reason for Consult: Write/Manage Tube Feeding 09/13/20 19:29 Consult to Dietitian/Nutrition [CONS] Routine Physician Instructions: Assess nutrtn needs, initiate, modify, manage TF Reason For Exam: Reason for Consult: Write/Manage Tube Feeding Reason for Consult: Write/Manage Tube Feeding 09/14/20 15:24 Consult to Physician [CONS] Routine Comment: Consulting Provider: GABE BLACKWELL Physician Instructions: Reason For Exam: irregular tachyarrythmia's; hypotension 09/15/20 07:50 Consult to Physician [CONS] Routine Comment: Consulting Provider: ALFREDO MUNOZ Physician Instructions: Reason For Exam: severe anemia ?GI bleed Attending: ZE SHORT MD - summary Date of admission: 08/15/20 18:13
--- NOTE | 2020-09-18 07:15 | Event Note ---
Date: 09/18/20 MANJU ROSE called overhead in hospital approximately 6:40 AM 09/18/2020. On arrival to floor, patient in severe distress, ACLS ongoing, CPR in progress. Patient with pre-existing intubation connected to ventilator, had allegedly become progressively more bradycardic and become asystole. Patient 64 years old with multiple comorbidities, currently COVID-19 positive with history of diabetes. On my arrival to room, patient had just received 1 round of epinephrine and 1 round of bicarb with ongoing CPR in progress and reportedly no pulses. Patient attached to multiple pressors including Levophed and Neal- Synephrine, had allegedly had coded yesterday during which he was resuscitated. Multiple sets of lab work reviewed without obvious abnormality, mildly worsening creatinine with mild hyperglycemia, consequently IV normal saline added to code. Patient given multiple further rounds of epinephrine with ongoing CPR and multiple brief pauses for pulse and rhythm check, patient consistently in asystole without pulses, pulses double checked with Doppler without evidence of cardiac activity. Ventilator double checked, ET tube appears to be in place with adequate respirations per ventilator, the settings of which seem appropriate. On exam: General: Patient in severe distress unresponsive HEENT: Intubated, patient's pupils fixed and dilated Respiratory: Rales noted, adequate respirations via ETT and ventilator Cardiac: Asystole, no pulses noted Extremities: Peripheral cyanosis status post multiple amputations of toes Patient without any signs of improvement, without any signs of spontaneous cardiac activity nor spontaneous respiratory activity, pupils fixed and dilated, time of 655. Patient's daughter called via telephone and notified, states she is out of state in [place] and will notify the remainder of family.
[2020-09-18] MEDS ORDERED: SODIUM CHLORIDE 0.9% IRR 1,000 ML BOTTLE IR ONE (12:00)
[2020-09-20 08:26] LABS: Heparin-Induced Platelet Antib Negative (Negative); Unfractionated Heparin Negative (Negative)
== END 2020-09-18 12:54 | DRG 853 ==
LOC: ED 08:39 → 3A 18:13 → CC1 09-02 09:11
PROVIDERS: ADMIT Internal Medicine; ATTEND Internal Medicine
PROC: 0KBW0ZZ Excision of Left Foot Muscle, Open Approach (ICD-10-PCS; principal; 2020-08-20)
PROC: XW033E5 Introduction of Remdesivir Anti-infective into Peripheral Vein, Percutaneous Approach, New Technology Group 5 (ICD-10-PCS; 2020-09-02)
PROC: 4A033R1 Measurement of Arterial Saturation, Peripheral, Percutaneous Approach (ICD-10-PCS; 2020-09-02)
PROC: 05HB33Z Insertion of Infusion Device into Right Basilic Vein, Percutaneous Approach (ICD-10-PCS; 2020-09-02)
PROC: 5A09457 Assistance with Respiratory Ventilation, 24-96 Consecutive Hours, Continuous Positive Airway Pressure (ICD-10-PCS; 2020-09-02)
PROC: 30233N1 Transfusion of Nonautologous Red Blood Cells into Peripheral Vein, Percutaneous Approach (ICD-10-PCS; 2020-09-12)
PROC: 5A1955Z Respiratory Ventilation, Greater than 96 Consecutive Hours (ICD-10-PCS; 2020-09-12)
PROC: 0BH17EZ Insertion of Endotracheal Airway into Trachea, Via Natural or Artificial Opening (ICD-10-PCS; 2020-09-12)
PROC: 5A12012 Performance of Cardiac Output, Single, Manual (ICD-10-PCS; 2020-09-18)
DX: A41.9 Sepsis, unspecified organism (principal); R65.21 Severe sepsis with septic shock; U07.1 COVID-19; J96.01 Acute respiratory failure with hypoxia; J12.82 Pneumonia due to coronavirus disease 2019; G92 Toxic encephalopathy; I96 Gangrene, not elsewhere classified; N39.0 Urinary tract infection, site not specified; I50.32 Chronic diastolic (congestive) heart failure; T87.54 Necrosis of amputation stump, left lower extremity; I25.10 Atherosclerotic heart disease of native coronary artery without angina pectoris; I11.0 Hypertensive heart disease with heart failure; E78.5 Hyperlipidemia, unspecified; Y83.5 Amputation of limb(s) as the cause of abnormal reaction of the patient, or of later complication, without mention of misadventure at the time of the procedure; D63.8 Anemia in other chronic diseases classified elsewhere; E11.65 Type 2 diabetes mellitus with hyperglycemia; I48.0 Paroxysmal atrial fibrillation; M10.9 Gout, unspecified; K21.9 Gastro-esophageal reflux disease without esophagitis; R33.9 Retention of urine, unspecified; E66.9 Obesity, unspecified; D50.9 Iron deficiency anemia, unspecified; L97.529 Non-pressure chronic ulcer of other part of left foot with unspecified severity; Z88.0 Allergy status to penicillin; Z89.432 Acquired absence of left foot; Z87.891 Personal history of nicotine dependence; Z95.1 Presence of aortocoronary bypass graft; Z68.33 Body mass index [BMI] 33.0-33.9, adult
CPT/HCPCS: 36415; 36600; 36620; 71045; 74018; 80048; 80053; 80202; 81001; 82140; 82270; 82728; 82803; 82805; 82947; 82962; 83615; 83735; 84100; 84132; 84145; 85007; 85014; 85018; 85025; 85027; 85049; 85379; 85520; 85610; 85730; 86022; 86140; 86850; 86900; 86901; 86920; 87040; 87070; 87086; 87205; 87641; 93005; 93922; 93925; 94002; 94003; 94660; 94760; 96374; G0378; A9270-GY; C9113; J0282; J1100; J1644; J1650; J1815; J1956; J2060; J2250; J2270; J2370; J2405; J2543; J2704; J3010; J3370; J3475; J7030; J7040; J7060; J7070; J7120; P9016; Q4108; U0003